=== PATIENT | female | born 1960 | race Caucasian/White ===

== ENCOUNTER 2023-03-29 10:00 | Outpatient (RCR) | payer BC, SELFPAY ==
[2022-11-11 10:40] VITALS: BP 154/90; PULSE 71; RESP 16; TEMP 36.7; O2SAT 98
--- NOTE | 2022-12-09 11:43 | URNOTE ---
Per [employer], Prior authorization is not required for Fluorouracil (J9190), Leucovorin (J0640), Oxaliplatin (J9263) and Aloxi (J2469). Ref #[id number]
[2022-12-16 08:23] LABS: Basophils Percent Auto 0.5 % (0.0-3.0); Eosinophils Percent Auto 1.1 % (0.0-7.0); Hematocrit 38.9 % (33.0-51.0); Hemoglobin* 12.7 gm/dL (12.0-16.0); Lymphocytes Percent Auto 30.7 % (20-44); Mean Corpuscular HGB Conc 33 gm/dL (32-36); Mean Corpuscular Hemoglobin 28 pg (26-34); Mean Corpuscular Volume 86 fL (80-100); Monocytes Percent Auto 6.7 % (0.0-11.0); Platelet Count* 169 K/uL (140-440); White Blood Count* 4.36 K/uL (4.50-11.00)
[2022-12-16 08:25] LABS: Slide Review Reflex No
[2022-12-16 08:31] VITALS: BP 157/95; PULSE 89; RESP 16; TEMP 37.1; O2SAT 95
[2022-12-16 08:38] LABS: Albumin* 4.4 g/dL (3.3-5.0); Chloride* 105 mmol/L (96-114); Potassium* 3.8 mmol/L (3.6-5.1); Sodium* 140 mmol/L (135-149)
[2022-12-16 08:41] LABS: Alanine Aminotransferase* 38 U/L (4-35); Alkaline Phosphatase* 92 U/L (40-150); Anion Gap 9 mEq/L (7-15); Aspartate Amino Transferase* 35 U/L (12-35); Bilirubin Total* 0.4 mg/dL (0.1-1.5); Blood Urea Nitrogen* 10 mg/dL (7-30); Carbon Dioxide* 26 mmol/L (20-32); Creatinine* 0.6 mg/dL (0.5-1.5); Est. Creatinine Clearance* 48.25; Estimated Glomerular Filt Rate 101 ml/min; Glucose* 110 mg/dL (60-115); Total Protein* 7.2 g/dL (6.0-8.3)
[2022-12-16] MEDS: PALONOSETRON 0.25 MG/5 ML inj IV (09:19)
[2022-12-16] MEDS: dexAMETHasone 20 MG in 0.9 % SODIUM CHLORIDE 100 ml 100 ML 408 MG IVPB (09:19)
[2022-12-16] MEDS: SODIUM CHLORIDE 0.9 % (FLUSH) 10 ML SYRINGE IVF (09:22)
[2022-12-16] MEDS: 5 % DEXTROSE 250 ML IV (09:22)
--- NOTE | 2022-12-16 09:54 | ONC.NURNOTE ---
PSDS core =0 patient states she is well supported with friends, family and restorationism she is focused on her wellbeing
--- NOTE | 2022-12-16 09:55 | ONC.NURNOTE ---
new start of FOLFOX at [facility]- this is Hayley's 3rd dose- first 2 doses at [facility] reviewed possible side effects of 5FU and oxaliplatin discussed self care, after hours management, fever management, treatment schedule, hydration, calling with concerns,hair loss, fatigue management, reviewed contents of the treatment binder questions addressed chemotherapy consent and RONEL consents signed
[2022-12-16 10:36] VITALS: BP 138/78
[2022-12-16 13:51] VITALS: BP 138/79; PULSE 88; RESP 18; TEMP 36.6; O2SAT 98
--- NOTE | 2022-12-16 13:52 | ONC.NURNOTE ---
Addendum entered and electronically signed by Trinity Pyle APRN 12/17/22 18:21: Discussed with Dr. Maria Elena Mcmullen today. Checked Magnesium level. Also note her recommendation to have Ms. Kwon get warm i.e. turn up thermostate in house to high 70's, put on sweatshirt and sweat pants and see if that helps with cramping and tremors, i.e. oxaliplatin coldness. Appreciate Kaitlynn Johnson RN to call patient with these recommendations. Addendum entered by Kaitlynn Johnson RN 12/17/22 09:12: Called patient to see how she is feeling this morning. She notes: 1. Continued cramping in hands, arms, and calves. This is making it difficult to type and write for her work. 2. Hands are also shaky. 3. Slight headache rated 2/10. She took 1000mg tylenol last night when it was worse. 4. No ear pain, but notes that her cheeks and ears feel warm. 5. Her upper lip has minimal feeling of numbness that she had yesterday at discharge. 6. Her voice is still hoarse, but sounds better than it did during start of reaction yesterday. Patient was told that an appointment was made for her to see Dr. Grigsby prior to next infusion to come up with plan for her. This will be discussed with Dr. Grigsby virtually with nursing on 12/24/2022 in case patient needs a change in treatment. Patient will call with any concerns that arise prior to this appointment. Addendum entered by Kaitlynn Johnson RN 12/16/22 16:22: Patient discharged at 1615. Occassional hot flashes noted, pain improved with headache and ear pain. Arms and lower leg cramping improving with movement. Voice continues to improve. Patient left to home and nursing will call in the morning. She is aware to go to ER with any issues involving breathing and to call infusion center if questions or concerns arise prior to getting phone call from nursing. Addendum entered by Kaitlynn Johnson RN 12/16/22 14:49: Patient seen by DALIA at 1440. Patient voice is improved, but continues to be slightly hoarse. Continued right arm and left hand cramping. Her calves were cramping when she got up to use the restroom. Headache she notes is still there, but only rated at a 1/10 and ear pain has resolved, but ears just feel warm. Patient will get famotidine and benadryl as ordered by [facility] and nursing to work on getting patient into Dr. Grigsby schedule prior to next infusion. Original Note: Patient stopped [facility]ACTICAL DEBRIEFER to say that she was experiencing a headache, pain in bilateral ears, and hoarse voice that started around 1340. Headache is located in upper neck area, and was improved with stretching and self adjustment. This continued to resolve as nursing was sitting with patient. At 1400 patient noted that ears have improved. Voice continues to be hoarse. No issues with her breathing or swallowing. Nursing came to observe patient and her vitals were all WNL. At about 1350 patient noted cramping in right forearm, this occurred prior to contractions of right arm and hand witch cycle two at home. Warm blanket was applied, and seemed to help with this. At this time, oxaliplatin was stopped. 1402: Ear pain 3/10, headache gone, voice still hoarse with conversation, right arm pain/contraction removed with warm towel, continued pain/cramping in left hand. Applied warm blanket to the area.
[2022-12-16 14:06] VITALS: BP 148/82; PULSE 86; RESP 16; O2SAT 96
[2022-12-16 14:12] VITALS: BP 145/89; PULSE 87; RESP 16; O2SAT 95
[2022-12-16] MEDS: diphenhydrAMINE 25 MG, FAMOTIDINE 20 MG in 0.9 % SODIUM CHLORIDE 100 ml 100 ML 410 MG IVPB (14:49)
[2022-12-16] MEDS: ACETAMINOPHEN 500 MG TABLET 1000 MG PO (15:36)
[2022-12-16 15:40] VITALS: BP 151/82; PULSE 89; RESP 16; TEMP 36.6; O2SAT 93
[2022-12-17 13:31] LABS: Magnesium* 1.8 mg/dL (1.5-2.6)
[2022-12-18 13:15] VITALS: BP 144/84; PULSE 66; RESP 20; TEMP 37; O2SAT 96
[2022-12-18] MEDS: dexAMETHasone 4 MG/ML VIAL 8 MG IV (13:25)
[2022-12-18] MEDS: 0.9 % SODIUM CHLORIDE 1000 ml 1,000 ML IV (13:25)
[2022-12-18] MEDS: ONDANSETRON 2 MG/ML inj 8 MG IV (13:26)
[2022-12-18] MEDS: HEPARIN 500 UNIT/5 ML SYRINGE IVF (15:40)
[2022-12-18] MEDS: SODIUM CHLORIDE 0.9 % (FLUSH) 10 ML SYRINGE IVF (15:40)
[2022-12-18 22:16] LABS: Calcium* 9.2 mg/dL (8.4-10.6)
--- NOTE | 2022-12-29 12:27 | PC.NURSE ---
Pt called to inquire about whether or not she needed labs done since she has decided she is no longer going to do chemotherapy. RN called pt back and advised that she do labs and meet with MD tomorrow as scheduled to discuss next steps. Pt has had innumerable side effects that she can no longer tolerate. She plans to do a cancer fighting diet and stop all chemotherapy. Will relay this message to MD. Again, pt agreed to have her labs drawn and meet with MD to discuss.
[2022-12-30 09:19] LABS: Basophils Percent Auto 0.5 % (0.0-3.0); Hematocrit 38.4 % (33.0-51.0); Hemoglobin* 12.7 gm/dL (12.0-16.0); Lymphocytes Percent Auto 36.8 % (20-44); Mean Corpuscular HGB Conc 33 gm/dL (32-36); Mean Corpuscular Hemoglobin 29 pg (26-34); Mean Corpuscular Volume 86 fL (80-100); Monocytes Percent Auto 8.1 % (0.0-11.0); Neutrophils Percent Auto 53.6 % (42.0-72.0); Platelet Count* 153 K/uL (140-440); RDW Coefficient of Variation % 14.6 % (11.5-15.5); Red Blood Count 4.46 m/uL (4.00-5.20); White Blood Count* 3.94 K/uL (4.50-11.00)
[2022-12-30 09:34] LABS: Slide Review Reflex No
[2022-12-30 09:35] LABS: Albumin* 4.4 g/dL (3.3-5.0); Chloride* 106 mmol/L (96-114); Sodium* 140 mmol/L (135-149)
[2022-12-30 09:36] LABS: Potassium* 4.1 mmol/L (3.6-5.1)
[2022-12-30 09:38] LABS: Alkaline Phosphatase* 102 U/L (40-150); Anion Gap 7 mEq/L (7-15); Aspartate Amino Transferase* 69 U/L (12-35); Bilirubin Total* 0.6 mg/dL (0.1-1.5); Blood Urea Nitrogen* 9 mg/dL (7-30); Carbon Dioxide* 27 mmol/L (20-32); Creatinine* 0.6 mg/dL (0.5-1.5); Est. Creatinine Clearance* 48.25; Estimated Glomerular Filt Rate 101 ml/min; Total Protein* 7.6 g/dL (6.0-8.3)
[2022-12-30 09:39] LABS: Alanine Aminotransferase* 80 U/L (4-35); Calcium* 9.8 mg/dL (8.4-10.6); Glucose* 99 mg/dL (60-115)
[2023-01-14 04:52] LABS: Carcinoembryonic Antigen <0.6 ng/mL (<=3.8)
[2023-02-16 11:55] LABS: Basophils Absolute Auto 0.02 K/uL (0.00-0.30); Basophils Percent Auto 0.4 % (0.0-3.0); Eosinophils Absolute Auto 0.05 K/uL (0.00-0.50); Hematocrit 39.6 % (33.0-51.0); Lymphocytes Absolute Auto 1.83 K/uL (0.90-2.90); Lymphocytes Percent Auto 38.2 % (20-44); Mean Corpuscular HGB Conc 33 gm/dL (32-36); Mean Corpuscular Hemoglobin 29 pg (26-34); Mean Corpuscular Volume 89 fL (80-100); Monocytes Percent Auto 4.6 % (0.0-11.0); Neutrophils Absolute Auto 2.67 K/uL (1.7-7.0); Neutrophils Percent Auto 55.8 % (42.0-72.0); Platelet Count* 187 K/uL (140-440); RDW Coefficient of Variation % 13.4 % (11.5-15.5); Red Blood Count 4.46 m/uL (4.00-5.20); White Blood Count* 4.79 K/uL (4.50-11.00)
[2023-02-16 12:04] LABS: Slide Review Reflex No
[2023-02-16 12:09] LABS: Albumin* 4.6 g/dL (3.3-5.0); Chloride* 107 mmol/L (96-114); Potassium* 3.8 mmol/L (3.6-5.1); Sodium* 140 mmol/L (135-149)
[2023-02-16 12:11] LABS: Creatinine* 0.5 mg/dL (0.5-1.5); Est. Creatinine Clearance* 48.25; Estimated Glomerular Filt Rate 106 ml/min
[2023-02-16 12:12] LABS: Alkaline Phosphatase* 89 U/L (40-150); Anion Gap 6 mEq/L (7-15); Aspartate Amino Transferase* 28 U/L (12-35); Bilirubin Total* 0.6 mg/dL (0.1-1.5); Blood Urea Nitrogen* 11 mg/dL (7-30); Carbon Dioxide* 27 mmol/L (20-32); Glucose* 92 mg/dL (60-115); Total Protein* 7.6 g/dL (6.0-8.3)
[2023-02-16 12:13] LABS: Alanine Aminotransferase* 19 U/L (4-35); Calcium* 9.2 mg/dL (8.4-10.6)
[2023-02-16] MEDS: HEPARIN 500 UNIT/5 ML SYRINGE IVF (15:08)
[2023-02-16] MEDS: SODIUM CHLORIDE 0.9 % (FLUSH) 10 ML SYRINGE IVF (15:08)
[2023-02-18 09:36] LABS: Carcinoembryonic Antigen 2.1 ng/mL (<=3.8)
[2023-02-24 08:00] VITALS: BP 149/88; PULSE 73; RESP 16; TEMP 37.1; O2SAT 96
[2023-02-24] MEDS: dexAMETHasone 20 MG in 0.9 % SODIUM CHLORIDE 100 ml 100 ML 408 MG IVPB (08:59)
[2023-02-24] MEDS: PALONOSETRON 0.25 MG/5 ML inj IV (08:59)
[2023-02-26 09:00] VITALS: BP 151/87; BP 158/81; PULSE 61; PULSE 63; RESP 16; TEMP 36.6; O2SAT 98
--- NOTE | 2023-02-26 09:36 | ONC.NURNOTE ---
Addendum entered by Concha Bender RN 02/26/23 09:46: stated day of treatment had a slight headache and felt lightheaded. resolved. slight RUQ cramping like gas. tolerable Original Note: orthostatics wnl. states ate good breakfast and drinking 64 oz water a day. denies rapid HR, dizziness or sob. states voiding in good amt light yellow. no fluids given. reviewed s/s dehydration and encouraged her to contact us if feeling like she needs IVF.
[2023-02-26] MEDS: SODIUM CHLORIDE 0.9 % (FLUSH) 10 ML SYRINGE IVF (09:38)
[2023-02-26] MEDS: HEPARIN 500 UNIT/5 ML SYRINGE IVF (09:38)
[2023-03-10 08:00] VITALS: BP 129/87; PULSE 117; RESP 16; TEMP 36.1; O2SAT 97
[2023-03-10 08:15] VITALS: PULSE 90
[2023-03-10 08:28] LABS: Basophils Percent Auto 0.5 % (0.0-3.0); Hematocrit 39.5 % (33.0-51.0); Lymphocytes Percent Auto 31.2 % (20-44); Mean Corpuscular HGB Conc 33 gm/dL (32-36); Mean Corpuscular Hemoglobin 29 pg (26-34); Mean Corpuscular Volume 89 fL (80-100); Monocytes Percent Auto 5.8 % (0.0-11.0); Neutrophils Percent Auto 61.5 % (42.0-72.0); Platelet Count* 193 K/uL (140-440); RDW Coefficient of Variation % 13.1 % (11.5-15.5); Red Blood Count 4.45 m/uL (4.00-5.20); White Blood Count* 4.14 K/uL (4.50-11.00)
[2023-03-10 08:42] LABS: Slide Review Reflex No
[2023-03-10 08:44] LABS: Albumin* 4.5 g/dL (3.3-5.0)
[2023-03-10 08:45] LABS: Chloride* 107 mmol/L (96-114); Potassium* 3.5 mmol/L (3.6-5.1); Sodium* 134 mmol/L (135-149)
[2023-03-10 08:47] LABS: Anion Gap 2 mEq/L (7-15); Bilirubin Total* 0.4 mg/dL (0.1-1.5); Carbon Dioxide* 25 mmol/L (20-32); Creatinine* 0.6 mg/dL (0.5-1.5); Est. Creatinine Clearance* 48.25; Estimated Glomerular Filt Rate 101 ml/min
[2023-03-10 08:48] LABS: Alanine Aminotransferase* 26 U/L (4-35); Alkaline Phosphatase* 99 U/L (40-150); Aspartate Amino Transferase* 27 U/L (12-35); Blood Urea Nitrogen* 11 mg/dL (7-30); Calcium* 9.4 mg/dL (8.4-10.6); Glucose* 116 mg/dL (60-115); Total Protein* 7.4 g/dL (6.0-8.3)
[2023-03-10] MEDS: dexAMETHasone 20 MG in 0.9 % SODIUM CHLORIDE 100 ml 100 ML 408 MG IVPB (09:33)
[2023-03-10] MEDS: PALONOSETRON 0.25 MG/5 ML inj IV (09:33)
[2023-03-10] MEDS: 0.9 % SODIUM CHLORIDE 250 ml IV (09:34)
[2023-03-10] MEDS: 5 % DEXTROSE 250 ML IV (09:34)
[2023-03-10] MEDS: HEPARIN 500 UNIT/5 ML SYRINGE IVF (09:34)
[2023-03-10] MEDS: SODIUM CHLORIDE 0.9 % (FLUSH) 10 ML SYRINGE IVF (09:34)
[2023-03-10] MEDS: OXALIPLATIN 5 MG/ML INJ 115 MG, TUBING PRIMARY 1 EACH in 5 % DEXTROSE 250 ML 250 ML 136.5 MG IV (09:59)
--- NOTE | 2023-03-10 10:55 | ONC.NURNOTE ---
Addendum entered by Concha Bender RN 03/10/23 11:43: 1120 vs 98-138/84-76-14. sats 96 RA. up to void and steady. Addendum entered by Concha Bender RN 03/10/23 11:41: Restarted Oxiplatin at 1112. monitroring closely. vs freq. tolerating well,. Original Note: 1020. 15 minutes into the transfusion. Infusion stopped and disconnected. Pt states she feels lightheaded. VS147/93-72-15. sats 97 ra. Notified Kaitlynn CONTI and DR. Moreno and with pt. 1026. states lt throat feels swollen into lt ear. visual of airway is open. vs 152/92-70. sats 97. NS 250 cc bolus. 1035 states light headedness is cleared. vs 147/91-75-14. 98 percent RA. LS clear. 1040 up to void. steady states feels better. 1052 157/91-77-14. [address] Grigsby here restart Oxaliplatin at 62 cc hr over 4 hrs. monitoring pt closely
--- NOTE | 2023-03-10 12:35 | ONC.NURNOTE ---
sodium 134. K+ 3.5 talked about increased potassium in her diet.,
[2023-03-12 12:15] VITALS: BP 155/83; PULSE 59; RESP 16; TEMP 36.8; O2SAT 96
[2023-03-12] MEDS: 0.9 % SODIUM CHLORIDE 1000 ml 1,000 ML IV (12:20)
[2023-03-23 08:02] VITALS: BP 156/90; PULSE 81; RESP 16; TEMP 36.9; O2SAT 94
[2023-03-23 08:46] LABS: Basophils Percent Auto 0.5 % (0.0-3.0); Eosinophils Percent Auto 1.9 % (0.0-7.0); Hemoglobin* 11.8 gm/dL (12.0-16.0); Lymphocytes Percent Auto 38.9 % (20-44); Mean Corpuscular HGB Conc 33 gm/dL (32-36); Mean Corpuscular Hemoglobin 29 pg (26-34); Mean Corpuscular Volume 90 fL (80-100); Monocytes Percent Auto 6.9 % (0.0-11.0); Neutrophils Percent Auto 51.8 % (42.0-72.0); Platelet Count* 160 K/uL (140-440); Red Blood Count 4.01 m/uL (4.00-5.20); White Blood Count* 3.78 K/uL (4.50-11.00)
[2023-03-23 09:07] LABS: Slide Review Reflex No
[2023-03-23 09:08] LABS: Albumin* 4.4 g/dL (3.3-5.0); Chloride* 106 mmol/L (96-114); Potassium* 3.8 mmol/L (3.6-5.1); Sodium* 141 mmol/L (135-149)
[2023-03-23 09:11] LABS: Alanine Aminotransferase* 21 U/L (4-35); Alkaline Phosphatase* 85 U/L (40-150); Anion Gap 10 mEq/L (7-15); Aspartate Amino Transferase* 24 U/L (12-35); Bilirubin Total* 0.2 mg/dL (0.1-1.5); Blood Urea Nitrogen* 9 mg/dL (7-30); Carbon Dioxide* 25 mmol/L (20-32); Creatinine* 0.6 mg/dL (0.5-1.5); Est. Creatinine Clearance* 48.25; Estimated Glomerular Filt Rate 101 ml/min; Total Protein* 6.8 g/dL (6.0-8.3)
[2023-03-23 09:12] LABS: Calcium* 8.9 mg/dL (8.4-10.6); Glucose* 119 mg/dL (60-115)
[2023-03-23] MEDS: PALONOSETRON 0.25 MG/5 ML inj IV (10:09)
[2023-03-23] MEDS: dexAMETHasone 20 MG in 0.9 % SODIUM CHLORIDE 100 ml 100 ML 408 MG IVPB (10:09)
[2023-03-23] MEDS: SODIUM CHLORIDE 0.9 % (FLUSH) 10 ML SYRINGE IVF (15:02)
[2023-03-23] MEDS: HEPARIN 500 UNIT/5 ML SYRINGE IVF (15:02)
--- NOTE | 2023-03-23 15:59 | ONC.NURNOTE ---
Pt tolerated Oxaliplatin over 4 hours today.
[2023-03-24 08:24] VITALS: BP 145/83; PULSE 86; RESP 16; TEMP 37.2; O2SAT 95
[2023-03-24] MEDS: SODIUM CHLORIDE 0.9 % (FLUSH) 10 ML SYRINGE IVF ×3 (09:10→11:36)
[2023-03-24] MEDS: PALONOSETRON 0.25 MG/5 ML inj IV (09:10)
[2023-03-24] MEDS: dexAMETHasone 10 MG in 0.9 % SODIUM CHLORIDE 100 ml 100 ML 408 MG IVPB (09:10)
[2023-03-24] MEDS: 0.9 % SODIUM CHLORIDE 250 ml IV (11:24)
[2023-03-24] MEDS: 5 % DEXTROSE 250 ML IV (11:58)
--- NOTE | 2023-03-24 12:08 | ONC.NURNOTE ---
slight tension headache. better today. calls it a neging headache. She states wonderes if from DEX.cold sores in mouth almost gone. is using magic mouthwash. states acyclovir just gave her diarrhea. She will call wednesday if needing IVF. discussed s/s for dehydration.
[2023-03-24 13:57] VITALS: BP 140/75; PULSE 75; RESP 18; TEMP 36.6; O2SAT 96
[2023-03-24 14:30] VITALS: BP 153/84; PULSE 78; RESP 16; TEMP 35.5; O2SAT 96
--- NOTE | 2023-03-24 16:20 | ONC.NURNOTE ---
Frequent checks during Oxaliplantin infusion 55mg over 4 hrs. 1357 At end of transfusion pt states feels light headed throat dry and sore. vs wnl. NS hung at 100cc hr. Dr Grigsby notified. pt felling much better with at discharge. vs wnl. up and steady.
[2023-03-26 12:42] VITALS: BP 143/83; PULSE 75; RESP 16; TEMP 36.9; O2SAT 95
[2023-03-26] MEDS: 0.9 % SODIUM CHLORIDE 1000 ml 1,000 ML IV (13:15)
[2023-03-26] MEDS: SODIUM CHLORIDE 0.9 % (FLUSH) 10 ML SYRINGE IVF ×2 (13:16→14:15)
[2023-03-26] MEDS: HEPARIN 500 UNIT/5 ML SYRINGE IVF (14:15)
[2023-03-29] MEDS: dexAMETHasone 4 MG/ML VIAL 8 MG IV (10:53)
[2023-03-29] MEDS: 0.9 % SODIUM CHLORIDE 1000 ml 1,000 ML IV (10:53)
[2023-03-29] MEDS: SODIUM CHLORIDE 0.9 % (FLUSH) 10 ML SYRINGE IVF ×2 (10:53→12:03)
[2023-03-29] MEDS: FAMOTIDINE 10 MG/ML inj 20 MG IVP (10:53)
[2023-03-29] MEDS: ONDANSETRON 2 MG/ML inj 8 MG IV (10:54)
[2023-03-29] MEDS: HEPARIN 500 UNIT/5 ML SYRINGE IVF (12:03)
--- NOTE | 2023-03-29 12:07 | ONC.NURNOTE ---
Patient leaving office and received phone call from [facility]. They are moving her surgery consult up to Wednesday04/05/2023. She asked about cancelling her chemotherapy appointment on Wednesday, we will leave appointment as is until we hear from patient following this appointment.
--- NOTE | 2023-04-05 12:30 | ONC.NURNOTE ---
received a call from Hayley, she asked to have all of her appointments cancelled per her [place] team in [place]. She will be meeting with them again in April, appointments were cancelled.
--- NOTE | 2023-04-27 15:15 | ONC.NURNOTE ---
Pt called to cancel appt with Dr. Grigsby on 05/04/23, pt states she has an appt with [place] on 05/07/23. Pt will update [facility] staff after that appt with plan of care.
== END 2023-05-10 23:59 | disposition home or self-care (01) ==
LOC: CCIC 10:00
PROVIDERS: Clinical Nurse Specialist; PCP Family Medicine; Referring Provider Family Medicine; Visit Provider Internal Medicine Hematology & Oncology
DX: C18.0 Malignant neoplasm of cecum (principal); R23.2 Flushing; K13.79 Other lesions of oral mucosa; M79.10 Myalgia, unspecified site; H04.123 Dry eye syndrome of bilateral lacrimal glands
CPT/HCPCS: 36415; 36591; 71260; 74177; 80053; 82378; 83735; 85025; 96360; 96365; 96366; 96368; 96376; 96413; 96415; 96416; 99202; 99203; 99205; 99211; 99212; 99213; 99214; 99215; A9270; J0640; J1100; J1200; J1642; J2405; J2469; J7030; J7050; J9190; J9263; Q9967; S0028

== ENCOUNTER 2023-08-10 13:23 | Outpatient (RCR) | payer BC, SELFPAY | END 2024-02-06 23:59 | disposition home or self-care (01) | LOC: CCIC 13:23 | PROVIDERS: PCP Family Medicine; Referring Provider Family Medicine; Visit Provider Internal Medicine Hematology & Oncology | DX: C18.0 Malignant neoplasm of cecum (principal) | CPT/HCPCS: 99211 ==

== ENCOUNTER 2023-09-04 09:12 | Inpatient (IN) | payer BC, SELFPAY ==
[2023-09-04] VITALS (22 sets, daily range): BP systolic 102–158; BP diastolic 53–96; PULSE 95–114; RESP 18–22; TEMP 37.3–38.3; O2SAT 90–98; BMI 28.3; BMI 29.7
--- NOTE | 2023-09-04 09:34 | CT_ITS ---
Patient: RUBEN MERIDA Facility:?[facility] Patient ID:?[id number] Site Patient ID:?[id number] Site :?[id number] Study:?CT-Chest/Abd/Pelvis w/79mL Isovue 370-09/04/2023 10:52:08 AM Ordering Physician:BILLY Final Report: INDICATION: Fever. History of a cecal cancer. TECHNIQUE: Multiple axial images were obtained from the apices to the symphysis pubis after administration of 79 mL of Isovue-370 intravenously. Sagittal and coronal re- formatted images were obtained. COMPARISON: 01/06/2023. FINDINGS: Chest. There is a calcified granuloma in the right middle lobe. There is a stable 0.2 cm pulmonary nodule in the right middle lobe on image #16 of series 6. There is a stable area scarring in the right middle lobe. There is no new suspicious pulmonary nodule. There is no pleural effusion. There is a right-sided Port-A-Cath. There is no axillary, mediastinal or hilar adenopathy. Abdomen and pelvis: There are stable tiny low-dense areas in the left lobe of the liver which are to small to characterized on this study but are likely cysts. The spleen, pancreas and adrenals are unremarkable. There is no mass or hydronephrosis in the kidneys. There is trace amount of fluid adjacent to the gallbladder. There is no mass or hydronephrosis in the kidneys. There is no evidence of bowel obstruction. There are postoperative changes consistent with a right francheska colectomy. There is a trace amount of fluid is to a with stranding of the fat adjacent to a suture line in the right lower quadrant. There is a small amount of free fluid in the pelvis. There is no free intraperitoneal air. There is an anterior abdominal wall incision wound. There is a new 1.9 x 1.4 cm soft tissue nodule in the incision site in the anterior LL musculature in the midline. The abdominal aorta is normal in caliber. There are atherosclerotic calcifications. No adenopathy. There are varicose veins in the left anterior abdominal wall subcutaneous tissue. There are phleboliths in the pelvis. There are degenerative changes in the spine. IMPRESSION: 1. Postoperative changes consistent with a right hemicolectomy. 2. Trace amount of fluid and mild stranding of the fat adjacent to the suture line in the colon in the right lower quadrant. Small amount of free fluid in the pelvis with a trace amount of fluid adjacent to the gallbladder. 3. No definite abscess seen. 4. New 1.9 x 1.4 cm soft tissue nodule in the incision in the anterior wall musculature. 5. Stable tiny low-dense areas in the liver which are too small to fully characterize but are likely tiny cysts. 6. Stable 0.2 cm pulmonary nodule right middle lobe. Calcified granuloma right middle lobe. Please note that all CT scans at this facility use dose modulation, iterative reconstruction, and/or weight-based dosing when appropriate to reduce radiation dose to as low as reasonably achievable. Dictated by Feliciano De La Cruz MD @ 09/04/2023 11:48:10 AM Signed by:?Feliciano De La Cruz MD @09/04/2023 11:48:10 AM (Electronic Signature)
--- NOTE | 2023-09-04 09:37 | ED.GENADULT ---
HPI - General Adult General Chief complaint: Fever Stated complaint: 106F, cancer pt with port. 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 She has had her care at [facility] in here with Dr. Yolie forde she in med oncology. The patient reports that this morning she woke up with abdominal discomfort that is gotten worse through the morning. She has had shaking chills. She does have a port in place but has not noticed any redness or erythema around the port. She is actually scheduled to get that removed. She reports she had a negative CT scan of her abdomen in June. She has had no blood in her stool. She denies cough, denies chest pain, denies respiratory concerns. Denies urinary symptoms. She has now completed chemotherapy but did have a recurrent tumor she had removed it she reported was the same type of tumor in her colon. Patient's fever at home was 100.6 Related Data Home Medications Medication Instructions Recorded Confirmed calcium carbonate (Calcium 500) 500 mg PO Q4-6H PRN 11/09/22 03/29/23 loperamide 2 mg capsule 2 mg PO Q6H PRN 11/09/22 03/29/23 ondansetron HCl 8 mg tablet 8 mg PO Q8H PRN 11/09/22 03/29/23 peg 400-propylene glycol (PF) 0.4 1 drp ophthalmic (eye) TID 11/09/22 03/29/23 %-0.3 % eye drops in a dropperette (Systane (PF)) prochlorperazine maleate 10 mg 10 mg PO Q6H PRN 11/09/22 03/29/23 tablet simethicone 80 mg chewable tablet 80 mg PO BID-TID PRN 11/09/22 03/29/23 (Gas Relief 80 (simethicone)) acetaminophen 500 mg tablet 1,000 mg PO Q6H PRN 12/08/22 09/04/23 (Tylenol Extra Strength) Magic Mouthwash 5 ml PO QID PRN #120 mL 03/12/23 03/29/23 (Lidocaine/Benadryl/Maalox) 120 mL suspension acyclovir 400 mg tablet 400 mg PO BID PRN 03/17/23 09/04/23 cholecalciferol (vitamin D3) 25 25 mcg PO DAILY 09/04/23 09/04/23 mcg (1,000 unit) capsule (Vitamin D3) Previous Rx's Medication Instructions Recorded magnesium oxide 500 mg capsule 500 mg PO BID #60 caps 03/17/23 penciclovir 1 % topical cream 1 applic topical Q2H 4 days #5 03/23/23 grams Allergies Allergy/AdvReac Type Severity Reaction Status Date / Time doxycycline Allergy Intermediate Rash Verified 09/04/23 11:08 codeine AdvReac Intermediate Nausea Verified 09/04/23 11:08 lisinopril AdvReac Unknown Cough Verified 09/04/23 11:08 Review of Systems Status of ROS: Reports: 6 or more systems reviewed and unremarkable except as noted in History and below [facility] Medical History (Updated 09/04/23 @ 15:44 by Kylah Cesar MD) Herpes labialis ?B00.1 - Herpesviral vesicular dermatitis (ICD-10) Colon cancer ?C18.9 - Malignant neoplasm of colon, unspecified (ICD-10) Hypertension ?I10 - Essential (primary) hypertension (ICD-10) Dyslipidemia ?E78.5 - Hyperlipidemia, unspecified (ICD-10) Class 1 obesity ?E66.9 - Obesity, unspecified (ICD-10) Chronic gastroesophageal reflux disease ?K21.9 - Gastro-esophageal reflux disease without esophagitis (ICD-10) Allergic rhinitis ?J30.9 - Allergic rhinitis, unspecified (ICD-10) Recurrent sinusitis ?J32.9 - Chronic sinusitis, unspecified (ICD-10) Polyp of colon (10/14/15) ?K63.5 - Polyp of colon (ICD-10) History of vitamin D deficiency ?Z86.39 - Personal history of other endocrine, nutritional and metabolic disease (ICD-10) History of coronary angiogram (09/28/17) ?Z98.890 - Other specified postprocedural states (ICD-10) History of cardiovascular stress test (09/14/17) ?Z92.89 - Personal history of other medical treatment (ICD-10) Surgical History (Updated 09/04/23 @ 15:45 by Kylah Cesar MD) H/O laparoscopy ?Z98.890 - Other specified postprocedural states (ICD-10) H/O partial resection of colon ?Z90.49 - Acquired absence of other specified parts of digestive tract (ICD-10) History of total hysterectomy with removal of both tubes and ovaries (2010) ?Z90.710 - Acquired absence of both cervix and uterus (ICD-10) ?Z90.722 - Acquired absence of ovaries, bilateral (ICD-10) ?Z90.79 - Acquired absence of other genital organ(s) (ICD-10) History of colonoscopy with polypectomy (10/11/15) ?Z98.890 - Other specified postprocedural states (ICD-10) ?Z86.010 - Personal history of colonic polyps (ICD-10) History of 2 sections (1988) ?Z98.891 - History of uterine scar from previous surgery (ICD-10) Family History Maternal Grandmother Stroke Diabetes Family/Other Prostate cancer Gastric cancer Father Heart disease Social History (Updated 09/04/23 @ 15:46 by Kylah Cesar MD) Narrative: [employer]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 Exercises 3-4 times per week-gym and walks, nonsmoker, no EtOH. What is your current living situation?: I presently have a place to live Problems where you live: no known problems Problems where you live details: N/A In the past 12 months, utilities in danger of being shut off: no In past 12 months, lack of transportation kept you from medical appts, meetings, work, or getting things needed for daily living: no In the past 12 mos, have been you worried that your food would run out before you had money to buy more?: never true In the past 12 mos, the food you bought just didn't last and you didn't have money to buy more?: never true Smoking Status: Never smoker Do you use any of these nicotine containing products: None Second hand tobacco smoke exposure: No How often do you have a drink containing alcohol: never How often do you have six or more drinks on one occasion: Never AUDIT-C Alcohol total score: 0 Non-prescribed substance use: denies use Caffeine: No How often does anyone, including family, friends and others, physically hurt you: never How often does anyone, including family, friends and others, insult or talk down to you: never How often does anyone, including family, friends and others, threaten you with harm: never How often does anyone, including family, friends and others, scream or curse at you: never service: No Exam Narrative: Exam Narrative: Objective: Temperature is 100? Blood pressure 158/96, pulse 114 and regular O2 sat is excellent at 90% Alert orient x3 Noncyanotic HEENT shows no scleral icterus mouth clear neck is supple Patient is in moderate distress to crampy abdominal pain across her mid abdomen. Chest clear Heart rhythm regular heart murmur Abdomen is soft mild periumbilical pain to the palpation, no guarding, no obvious peritonitis. But patient is to tender to touch in her abdomen. Negative rebound No pain in the right lower quadrant Extremities are no edema Neurologic nonfocal good peripheral perfusion noted Const: Vital Signs, click to edit/add: Vital Signs - 24 hr 09/04/23 12:30 09/04/23 12:31 09/04/23 13:10 Temperature 99.4 F Pulse Rate 102 H 103 H Pulse Rate [Apical ] 95 Respiratory Rate 18 Blood Pressure 102/53 L Blood Pressure [Ri ght Arm] 104/67 Pulse Oximetry 92 93 93 Oxygen Delivery Me thod Room Air 09/04/23 14:19 Temperature Pulse Rate Pulse Rate [Apical ] Respiratory Rate Blood Pressure Blood Pressure [Ri ght Arm] Pulse Oximetry 93 Oxygen Delivery Me thod Course Vital Signs Vital signs: Initial Vital Signs Temperature 100 F H 09/04/23 09:19 Temperature Source Temporal Artery Scan 09/04/23 09:19 Pulse Rate 114 H 09/04/23 09:19 Respiratory Rate 22 09/04/23 09:19 Blood Pressure 158/96 H 09/04/23 09:19 Blood Pressure Mean 116 H 09/04/23 09:19 Blood Pressure Position Semi-Fowlers 09/04/23 09:19 Pulse Oximetry 98 09/04/23 09:19 Oxygen Delivery Method Room Air 09/04/23 09:19 Vital Signs Temperature 100 F H 09/04/23 09:19 Pulse Rate 114 H 09/04/23 09:19 Respiratory Rate 22 09/04/23 09:19 Blood Pressure 158/96 H 09/04/23 09:19 Pulse Oximetry 98 09/04/23 09:19 Oxygen Delivery Method Room Air 09/04/23 09:19 Temperature 99.2 F 09/04/23 15:00 Pulse Rate 95 09/04/23 15:00 Respiratory Rate 18 09/04/23 15:00 Blood Pressure 127/71 09/04/23 15:00 Pulse Oximetry 94 09/04/23 15:00 Oxygen Delivery Method Room Air 09/04/23 15:00 Medications Administered Medications: Discontinued Medications Generic Name Dose Route Start Last Admin Trade Name Freq PRN Reason Stop Dose Admin Sodium Chloride 1,000 mls @ 6,000 mls/hr 09/04/23 09:45 09/04/23 10:30 0.9 % Sodium Chloride 1000 Ml IV 09/04/23 09:54 Infused .Q10M VIDA Infusion Sodium Chloride 1,000 mls @ 6,000 mls/hr 09/04/23 09:45 09/04/23 12:30 0.9 % Sodium Chloride 1000 Ml IV 09/04/23 09:54 Infused .Q10M VIDA Infusion Vancomycin HCl 1,500 mg/ 515 mls @ 257.5 mls/hr 09/04/23 09:42 09/04/23 11:17 Sodium Chloride IVPB 09/04/23 09:43 257.5 mls/hr ONCE ONE Administration Protocol Piperacillin Sod/Tazobactam 100 mls @ 200 mls/hr 09/04/23 09:42 09/04/23 11:10 Sod 4.5 gm/ Sodium Chloride IVPB 09/04/23 09:43 Infused ONCE ONE Infusion Lactated Ringer's 1,000 mls @ 1,000 mls/hr 09/04/23 14:18 09/04/23 14:46 Lactated Ringers 1000 Ml IV 09/04/23 15:17 1,000 mls/hr .Q1H ONE Administration Lactated Ringer's 1,000 mls @ 125 mls/hr 09/04/23 14:20 09/04/23 16:00 Lactated Ringers 1000 Ml IV 125 mls/hr .Q8H VIDA Administration Piperacillin Sod/Tazobactam 100 mls @ 200 mls/hr 09/04/23 16:00 09/04/23 15:48 Sod 3.375 gm/ Sodium Chloride IVPB 200 mls/hr Q6H VIDA Administration Lorazepam 0.5 mg 09/04/23 09:34 09/04/23 09:55 Lorazepam 2 Mg/Ml Inj IVP 09/04/23 09:35 0.5 mg ONCE ONE Administration Morphine Sulfate 4 mg 09/04/23 09:34 09/04/23 09:52 Morphine 4 Mg/Ml Inj IVP 09/04/23 09:35 4 mg ONCE ONE Administration Morphine Sulfate 4 mg 09/04/23 12:43 09/04/23 12:45 Morphine 4 Mg/Ml Inj IVP 09/04/23 12:44 4 mg ONCE ONE Administration Ondansetron HCl 4 mg 09/04/23 14:18 09/04/23 15:57 Ondansetron 2 Mg/Ml Inj IVP 4 mg Q4H PRN Administration Nausea Medical Decision Making MDM Narrative Medical decision making narrative: [age] year white female with history of what is described in her chart as invasive cecal cancer status post recent resection earlier this year by her report at [facility], who is now off chemotherapy. Does have a port in place in the right upper chest. She has noticed no redness or erythema around the port. There does appear to be palpable abdominal pain. At this point I think rule out obstruction, such as a small bowel obstruction, diverticulitis, ascites, patient will get CT scan of the abdomen and chest will get IV fluid, antibiotics in the form of vanco and Zosyn, will also give a couple L IV fluid. Disposition pending findings above. Whether hospitalization here or transfer back to [facility]. Addendum 12:[address] scan of the chest and abdomen pelvis looks largely unremarkable other than she does have a little bit of fluid around her gallbladder, and she does have 01.9 x 1.4 soft tissue nodule incision in the anterior wall musculature. Patient has had a right hemicolectomy. Fever there is no abscess is seen. Patient's lab studies look pretty were unremarkable with borderline lactate and white count looks within normal limits, troponin is negative, EKG by my read shows normal sinus rhythm normal EKG. Urinalysis looks largely unremarkable. Blood cultures were obtained. I think at this point discussed with Dr. Cesar and we agreed to do a right upper quadrant ultrasound for completeness, and will also get a blood culture from her port. The patient will be admitted to the hospital on observation, IV vanco and Zosyn has been given. Dr. Cesar accepts to the hospital team. Lab Data Labs: Lab Results 09/04/23 09/04/23 09/04/23 Range/Units 09:30 09:40 10:09 WBC 10.35 (4.50-11.00) K/uL RBC 4.61 (4.00-5.20) m/uL Hgb 13.5 (12.0-16.0) gm/dL Hct 41.0 (33.0-51.0) % MCV 89 (80-100) fL MCH 29 (26-34) pg MCHC 33 (32-36) gm/dL RDW Coeff of Dorian 12.8 (11.5-15.5) % Plt Count 170 (140-440) K/uL Neut % (Auto) 86.5 H (42.0-72.0) % Lymph % (Auto) 10.0 L (20-44) % [place] % (Auto) 2.7 (0.0-11.0) % Eos % (Auto) 0.5 (0.0-7.0) % Baso % (Auto) 0.1 (0.0-3.0) % Neut # (Auto) 9.00 H (1.7-7.0) K/uL Lymph # (Auto) 1.00 (0.90-2.90) K/uL [place] # (Auto) 0.30 (0.00-0.90) K/UL Eos # (Auto) 0.05 (0.00-0.50) K/uL Baso # (Auto) 0.01 (0.00-0.30) K/uL Abs Immat Gran (auto) 0.02 (0.00-0.30) K/uL Imm/Tot Granulo (auto) 0.2 % INR 0.94 (0.91-1.10) Sodium 139 (135-149) mmol/L Potassium 3.8 (3.6-5.1) mmol/L Chloride 105 (96-114) mmol/L Carbon Dioxide 27 (20-32) mmol/L Anion Gap 7 (7-15) mEq/L BUN 14 (7-30) mg/dL Creatinine 0.6 (0.5-1.5) mg/dL Estimated Creat Clear 47.63 Estimated GFR 101 ml/min Glucose 103 (60-115) mg/dL Lactate 2.1 H (0.5-1.9) mmol/L Calcium 9.4 (8.4-10.6) mg/dL Total Bilirubin 0.6 (0.1-1.5) mg/dL Direct Bilirubin 0.0 (0.0-0.5) mg/dL AST 21 (12-35) U/L ALT 20 (4-35) U/L Alkaline Phosphatase 86 (40-150) U/L Troponin I < 0.01 L (0.01-0.04) ng/mL C-Reactive Protein 0.8 (0.5-1.0) mg/dL NT-Pro-B Natriuret Pep 89 pg/mL Total Protein 7.8 (6.0-8.3) g/dL Albumin 4.8 (3.3-5.0) g/dL Amylase 65 (18-89) U/L Urine Color Yellow (Yellow) Urine Appearance Clear (Clear) Urine pH 7.0 (5.0-8.5) Ur Specific [place] 1.020 (1.000-1.030) Urine Protein Negative (Negative) Urine Glucose (UA) Negative (Negative) Urine Ketones Negative (Negative) Urine Blood Trace-intact A (Negative) Urine Nitrite Negative (Negative) Urine Bilirubin Negative (Negative) Urine Urobilinogen 0.2 (0.2-1.0) Ur Leukocyte Esterase Negative (Negative) Urine RBC 2-5 A (0-2) Urine WBC 2-5 (0-5) Ur Squamous Epith Cells Few (None-Few) Urine Bacteria Few A (None) SARS-CoV-2 (PCR) Negative SARS-CoV-2 (Negative) Influenza Type A (PCR) Negative PCR FLU A (Negative) Influenza Type B (PCR) Negative PCR FLU B (Negative) RSV (PCR) Negative PCR RSV (Negative) Discharge Plan Discharge Clinical Impression: Fever, Shaking chills, Abdominal pain Patient Disposition: Admitted As Observation Condition: Critical
[2023-09-04 09:44] LABS: Lactate* 2.1 mmol/L (0.5-1.9)
[2023-09-04 09:46] LABS: Basophils Absolute Auto 0.01 K/uL (0.00-0.30); Basophils Percent Auto 0.1 % (0.0-3.0); Eosinophils Absolute Auto 0.05 K/uL (0.00-0.50); Eosinophils Percent Auto 0.5 % (0.0-7.0); Hemoglobin* 13.5 gm/dL (12.0-16.0); Immature Granulocytes Abs Auto 0.02 K/uL (0.00-0.30); Immature Granulocytes Pct Auto 0.2 %; Mean Corpuscular HGB Conc 33 gm/dL (32-36); Mean Corpuscular Hemoglobin 29 pg (26-34); Mean Corpuscular Volume 89 fL (80-100); Monocytes Percent Auto 2.7 % (0.0-11.0); Neutrophils Percent Auto 86.5 % (42.0-72.0); Platelet Count* 170 K/uL (140-440); RDW Coefficient of Variation % 12.8 % (11.5-15.5); Red Blood Count 4.61 m/uL (4.00-5.20); White Blood Count* 10.35 K/uL (4.50-11.00)
[2023-09-04] MEDS: 0.9 % SODIUM CHLORIDE 1000 ml 1,000 ML 6000 ML IV ×2 (09:51→10:30)
[2023-09-04] MEDS: MORPHINE 4 MG/ML INJ IVP ×2 (09:52→12:45)
[2023-09-04] MEDS: LORazepam 2 MG/ML inj 0.5 MG IVP (09:55)
[2023-09-04 09:56] LABS: Slide Review Reflex No
[2023-09-04 10:04] LABS: Chloride* 105 mmol/L (96-114)
[2023-09-04 10:05] LABS: Albumin* 4.8 g/dL (3.3-5.0); Sodium* 139 mmol/L (135-149)
[2023-09-04 10:06] LABS: Potassium* 3.8 mmol/L (3.6-5.1)
[2023-09-04 10:07] LABS: INR 0.94 (0.91-1.10); Prothrombin Time 13.1 Seconds
[2023-09-04 10:08] LABS: Amylase* 65 U/L (18-89); Anion Gap 7 mEq/L (7-15); Aspartate Amino Transferase* 21 U/L (12-35); Bilirubin Total* 0.6 mg/dL (0.1-1.5); Carbon Dioxide* 27 mmol/L (20-32); Creatinine* 0.6 mg/dL (0.5-1.5); Est. Creatinine Clearance* 47.63; Estimated Glomerular Filt Rate 101 ml/min; Total Protein* 7.8 g/dL (6.0-8.3)
[2023-09-04 10:09] LABS: Alanine Aminotransferase* 20 U/L (4-35); Alkaline Phosphatase* 86 U/L (40-150); Blood Urea Nitrogen* 14 mg/dL (7-30); Calcium* 9.4 mg/dL (8.4-10.6); Glucose* 103 mg/dL (60-115)
[2023-09-04 10:11] LABS: C Reactive Protein* 0.8 mg/dL (0.5-1.0)
[2023-09-04] MEDS: PIPERACILLIN/TAZOBACTAM 4.5 GM in 0.9 % SODIUM CHLORIDE Mini-bag 100 ML IVPB (10:15)
[2023-09-04 10:21] LABS: Appearance Urine Clear (Clear); Bilirubin Urine Negative (Negative); Blood Urine Trace-intact (Negative); Color Urine Yellow (Yellow); Glucose Urine Negative (Negative); Ketones Urine Negative (Negative); Leukocyte Esterase Urine Negative (Negative); Nitrite Urine Negative (Negative); Protein Urine Negative (Negative); Urobilinogen Urine 0.2 (0.2-1.0)
[2023-09-04 10:22] LABS: NT Pro B Type NatriureticPept* 89 pg/mL; Troponin I* < 0.01 ng/mL (0.01-0.04)
[2023-09-04 10:35] LABS: Bacteria Urine Few; Squamous Epithelial Cell Urine Few (None-Few)
[2023-09-04 11:07] LABS: PCR FLU A Negative PCR FLU A (Negative); PCR FLU B Negative PCR FLU B (Negative); PCR RSV Negative PCR RSV (Negative); SARS PCR* Negative SARS-CoV-2 (Negative)
--- NOTE | 2023-09-04 12:05 | US_ITS ---
Patient: RBUEN MERIDA Facility:?[facility] Patient ID:?[id number] Study:?US-Abdomen limited-09/04/2023 1:53:43 PM Ordering Physician:?lazara hood Final Report: CLINICAL HISTORY: Pain FINDINGS: Nodular contour to the liver which can be seen with cirrhosis. The spleen is not visualized The visualized portions of the pancreas appears normal. The proximal abdominal aorta and IVC appear normal. There is no evidence of ascites. Possible amount of sludge in the gallbladder. Wall of the gallbladder measures 3 millimeters. Patient tender over the gallbladder tiny amount of fluid adjacent to the gallbladder measuring 2.4 x 0.5 x 0.8 centimeters gallbladder appears slightly prominent the common bile duct measures 6 mm in size within the jodi hepatis. Right kidney unremarkable. IMPRESSION: 1.Limited study due to overlying bowel gas. Possible sludge in the gallbladder which appears slightly prominent. Normal gallbladder wall. Minimal amount of fluid adjacent to the gallbladder. Patient is tender over the gallbladder. 2. Nodular contour to liver which can be seen with cirrhosis. Dictated by Madelaine Booker MD @ 09/04/2023 3:02:54 PM Signed by:?Madelaine Booker MD @09/04/2023 3:02:54 PM (Electronic Signature)
[2023-09-04 14:40] LABS: Lactate* 1.1 mmol/L (0.5-1.9)
[2023-09-04] MEDS: LACTATED RINGERS 1000 ML 1,000 ML IV (14:46)
--- NOTE | 2023-09-04 15:13 | P.SS_ITS ---
Same Day Admit/Disch: HPI History of Present Illness Time Seen by Provider: 13:00 Date Seen: 09/04/23 Chief complaint: 89F, cancer pt with port. Narrative: Hayley Unger is a 63 year old female with a history of malignant neoplasm of the cecum, and recent surgery for peritoneal omental nodes who drove herself to the ER for concerns of abdominal pain and fever. She sees Dr. Segura at [facility] after she had a cecal cancer diagnosed on a routine colonoscopy in June 2022. She had surgical resection of the cancer 07/30/2022, and then underwent chemotherapy with 6 cycles of FOLFOX between October and March of 2023 due to possible peritoneal metastases. She notes that she had difficulty with the chemotherapy especially with cold sensitivity. On 05/27/2023 she underwent debulking surgery and HIPEC at [facility] by Dr. Baldwin from hepatobiliary. Postoperatively she has been doing very well and only takes vitamin-D, no other medications. She tries to eat only organic foods and has been very careful about her diet. She has lost 50 lb over the last 2 years on purpose. She had been doing well over the last 3 months since the surgery and is not on any cancer treatments at present. She awoke today in her usual state of health around 4:00 a.m., went to the bathroom, went back to bed and woke up again around 5:30 a.m.. She then got up in gout cup of coffee and made some toast with jelly. She had 2 bowel movements this morning 1 was loose and the 2nd was normal. She started noticing some abdominal pain, it did not seem to be associated with eating and may have even started just prior to eating. The abdominal pain was diffuse and quickly escalated. She started to feel very unwell and went to lay down for a bit. When she woke up a little later she felt feverish and had chills. She took her temperature which was 100.7 degrees F. she called the ER in told on that she was coming in. By this time she was hunched over and could even stand up because she was in so much pain. She drove herself to the emergency department. In the emergency department she was noted to be writhing in abdominal pain, febrile and tachycardic. CT abdomen and pelvis was done, the results are below. Although her pain got better briefly in the emergency department, by the time she got to the floor she was acutely painful all over. Same Day Admit/Disch: ROS Review of Systems All systems: reviewed and no additional remarkable complaints except as stated [facility] Medical History (Updated 09/04/23 @ 15:44 by Kylah Hood MD) Herpes labialis ?B00.1 - Herpesviral vesicular dermatitis (ICD-10) Colon cancer ?C18.9 - Malignant neoplasm of colon, unspecified (ICD-10) Hypertension ?I10 - Essential (primary) hypertension (ICD-10) Dyslipidemia ?E78.5 - Hyperlipidemia, unspecified (ICD-10) Class 1 obesity ?E66.9 - Obesity, unspecified (ICD-10) Chronic gastroesophageal reflux disease ?K21.9 - Gastro-esophageal reflux disease without esophagitis (ICD-10) Allergic rhinitis ?J30.9 - Allergic rhinitis, unspecified (ICD-10) Recurrent sinusitis ?J32.9 - Chronic sinusitis, unspecified (ICD-10) Polyp of colon (10/14/15) ?K63.5 - Polyp of colon (ICD-10) History of vitamin D deficiency ?Z86.39 - Personal history of other endocrine, nutritional and metabolic disease (ICD-10) History of coronary angiogram (09/28/17) ?Z98.890 - Other specified postprocedural states (ICD-10) History of cardiovascular stress test (09/14/17) ?Z92.89 - Personal history of other medical treatment (ICD-10) Surgical History (Updated 09/04/23 @ 15:45 by Kylah Hood MD) H/O laparoscopy ?Z98.890 - Other specified postprocedural states (ICD-10) H/O partial resection of colon ?Z90.49 - Acquired absence of other specified parts of digestive tract (ICD- 10) History of total hysterectomy with removal of both tubes and ovaries (2010) ?Z90.710 - Acquired absence of both cervix and uterus (ICD-10) ?Z90.722 - Acquired absence of ovaries, bilateral (ICD-10) ?Z90.79 - Acquired absence of other genital organ(s) (ICD-10) History of colonoscopy with polypectomy (10/11/15) ?Z98.890 - Other specified postprocedural states (ICD-10) ?Z86.010 - Personal history of colonic polyps (ICD-10) History of 2 sections (1988) ?Z98.891 - History of uterine scar from previous surgery (ICD-10) Family History Maternal Grandmother Stroke Diabetes Family/Other Prostate cancer Gastric cancer Father Heart disease Social History (Updated 09/04/23 @ 15:46 by Kylah Hood MD) Narrative: [employer]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 Exercises 3-4 times per week-gym and wa lks, nonsmoker, no EtOH. Smoking Status: Never smoker Do you use any of these nicotine containing products: None Second hand tobacco smoke exposure: No How often do you have a drink containing alcohol: never AUDIT-C Alcohol total score: 0 Non-prescribed substance use: denies use service: No Exam 2 Narrative: Exam Narrative: General: Appears ill. Grayish countenance. Awake alert oriented x3. HEENT: Normocephalic atraumatic, pupils equally round and reactive to light and accommodation. Oropharynx clear. Mucous membranes are very dry. No cervical lymphadenopathy, thyromegaly or carotid bruits. No JVD. Cardiovascular: Mildly tachycardic, regular. No murmurs, gallops, or rubs. Chest: Port in place, mild tenderness, no overlying erythema or induration. No increased work of breathing. Clear to auscultation bilaterally. No crackles or wheezes. Abdomen: Healing midline incision. Bowel sounds absent. Rigid, diffusely tender with guarding. Difficult to palpate for hepatosplenomegaly. Extremities: No edema, no cyanosis or clubbing. Skin: No jaundice, no pallor, no rashes. Neuro: Grossly intact. No focal deficits. Const: Vital Signs, click to edit/add: Vital Signs - 24 hr 09/04/23 09:19 09/04/23 09:52 09/04/23 09:53 Temperature 100 F H Pulse Rate Pulse Rate [Pulse Oximeter] 114 H Respiratory Rate 22 Blood Pressure Blood Pressure [Ri ght Upper Arm] 158/96 H Pulse Oximetry 98 97 94 Oxygen Delivery Me thod Room Air Room Air 09/04/23 09:55 09/04/23 10:00 09/04/23 10:00 Temperature 100.7 F H Pulse Rate Pulse Rate [Pulse Oximeter] 108 H Respiratory Rate 22 Blood Pressure Blood Pressure [Ri ght Upper Arm] 131/80 Pulse Oximetry 95 94 Oxygen Delivery Me thod Room Air 09/04/23 10:02 09/04/23 10:03 09/04/23 10:46 Temperature Pulse Rate Pulse Rate [Pulse Oximeter] Respiratory Rate Blood Pressure Blood Pressure [Ri ght Upper Arm] Pulse Oximetry 91 90 93 Oxygen Delivery Me thod Room Air 09/04/23 10:47 09/04/23 11:00 09/04/23 11:02 Temperature 101 F H 99.6 F Pulse Rate 105 H 107 H Pulse Rate [Pulse Oximeter] 105 H Respiratory Rate 20 Blood Pressure 154/81 H Blood Pressure [Ri ght Upper Arm] 147/81 H Pulse Oximetry 96 96 94 Oxygen Delivery Me thod Room Air 09/04/23 11:03 09/04/23 11:30 09/04/23 11:32 Temperature Pulse Rate 106 H 110 H 111 H Pulse Rate [Pulse Oximeter] Respiratory Rate Blood Pressure 143/81 H Blood Pressure [Ri ght Upper Arm] Pulse Oximetry 94 92 93 Oxygen Delivery Me thod 09/04/23 12:00 09/04/23 12:01 09/04/23 12:02 Temperature Pulse Rate 110 H 110 H 111 H Pulse Rate [Pulse Oximeter] Respiratory Rate Blood Pressure 126/74 Blood Pressure [Ri ght Upper Arm] Pulse Oximetry 92 93 92 Oxygen Delivery Me thod 09/04/23 12:30 09/04/23 12:31 Temperature Pulse Rate 102 H 103 H Pulse Rate [Pulse Oximeter] Respiratory Rate Blood Pressure 102/53 L Blood Pressure [Ri ght Upper Arm] Pulse Oximetry 92 93 Oxygen Delivery Me thod Same Day Admit/Disch: Data Data Completed and Pending Labs on day of discharge: Labs from last 24 hours 09/04/23 09/04/23 09/04/23 14:34 10:09 09:40 WBC RBC Hgb Hct MCV MCH MCHC RDW Coeff of Dorian Plt Count Neut % (Auto) Lymph % (Auto) Kittson % (Auto) Eos % (Auto) Baso % (Auto) Neut # (Auto) Lymph # (Auto) Kittson # (Auto) Eos # (Auto) Baso # (Auto) Abs Immat Gran (auto) Imm/Tot Granulo (auto) INR Sodium Potassium Chloride Carbon Dioxide Anion Gap BUN Creatinine Estimated Creat Clear Estimated GFR Glucose Lactate 1.1 Calcium Total Bilirubin Direct Bilirubin AST ALT Alkaline Phosphatase Troponin I C-Reactive Protein NT-Pro-B Natriuret Pep Total Protein Albumin Amylase Urine Color Yellow Urine Appearance Clear Urine pH 7.0 Ur Specific Thurmond 1.020 Urine Protein Negative Urine Glucose (UA) Negative Urine Ketones Negative Urine Blood Trace-intact A Urine Nitrite Negative Urine Bilirubin Negative Urine Urobilinogen 0.2 Ur Leukocyte Esterase Negative Urine RBC 2-5 A Urine WBC 2-5 Ur Squamous Epith Cells Few Urine Bacteria Few A SARS-CoV-2 (PCR) Negative SARS-CoV-2 Influenza Type A (PCR) Negative PCR FLU A Influenza Type B (PCR) Negative PCR FLU B RSV (PCR) Negative PCR RSV 09/04/23 09:30 WBC 10.35 RBC 4.61 Hgb 13.5 Hct 41.0 MCV 89 MCH 29 MCHC 33 RDW Coeff of Dorian 12.8 Plt Count 170 Neut % (Auto) 86.5 H Lymph % (Auto) 10.0 L Kittson % (Auto) 2.7 Eos % (Auto) 0.5 Baso % (Auto) 0.1 Neut # (Auto) 9.00 H Lymph # (Auto) 1.00 Kittson # (Auto) 0.30 Eos # (Auto) 0.05 Baso # (Auto) 0.01 Abs Immat Gran (auto) 0.02 Imm/Tot Granulo (auto) 0.2 INR 0.94 Sodium 139 Potassium 3.8 Chloride 105 Carbon Dioxide 27 Anion Gap 7 BUN 14 Creatinine 0.6 Estimated Creat Clear 47.63 Estimated GFR 101 Glucose 103 Lactate 2.1 H Calcium 9.4 Total Bilirubin 0.6 Direct Bilirubin 0.0 AST 21 ALT 20 Alkaline Phosphatase 86 Troponin I < 0.01 L C-Reactive Protein 0.8 NT-Pro-B Natriuret Pep 89 Total Protein 7.8 Albumin 4.8 Amylase 65 Urine Color Urine Appearance Urine pH Ur Specific Thurmond Urine Protein Urine Glucose (UA) Urine Ketones Urine Blood Urine Nitrite Urine Bilirubin Urine Urobilinogen Ur Leukocyte Esterase Urine RBC Urine WBC Ur Squamous Epith Cells Urine Bacteria SARS-CoV-2 (PCR) Influenza Type A (PCR) Influenza Type B (PCR) RSV (PCR) Preliminary micro results at discharge 09/04/23 10:09 Urine Culture - Preliminary Urine,Clean Catch Culture in Progress 09/04/2023 EKG: Normal sinus rhythm, 98 beats per minute, normal EKG. Study: CT-Chest/Abd/Pelvis w/79mL Isovue 370-09/04/2023 10:52:08 AM Ordering Physician: ADRIÁN Final Report: INDICATION: Fever. History of a cecal cancer. TECHNIQUE: Multiple axial images were obtained from the apices to the symphysis pubis after administration of 79 mL of Isovue-370 intravenously. Sagittal and coronal re- formatted images were obtained. COMPARISON: 01/06/2023. FINDINGS: Chest. There is a calcified granuloma in the right middle lobe. There is a stable 0.2 cm pulmonary nodule in the right middle lobe on image #16 of series 6. There is a stable area scarring in the right middle lobe. There is no new suspicious pulmonary nodule. There is no pleural effusion. There is a right-sided Port-A-Cath. There is no axillary, mediastinal or hilar adenopathy. Abdomen and pelvis: There are stable tiny low-dense areas in the left lobe of the liver which are to small to characterized on this study but are likely cysts. The spleen, pancreas and adrenals are unremarkable. There is no mass or hydronephrosis in the kidneys. There is trace amount of fluid adjacent to the gallbladder. There is no mass or hydronephrosis in the kidneys. There is no evidence of bowel obstruction. There are postoperative changes consistent with a right francheska colectomy. There is a trace amount of fluid is to a with stranding of the fat adjacent to a suture line in the right lower quadrant. There is a small amount of free fluid in the pelvis. There is no free intraperitoneal air. There is an anterior abdominal wall incision wound. There is a new 1.9 x 1.4 cm soft tissue nodule in the incision site in the anterior LL musculature in the midline. The abdominal aorta is normal in caliber. There are atherosclerotic calcifications. No adenopathy. There are varicose veins in the left anterior abdominal wall subcutaneous tissue. There are phleboliths in the pelvis. There are degenerative changes in the spine. IMPRESSION: 1. Postoperative changes consistent with a right hemicolectomy. 2. Trace amount of fluid and mild stranding of the fat adjacent to the suture line in the colon in the right lower quadrant. Small amount of free fluid in the pelvis with a trace amount of fluid adjacent to the gallbladder. 3. No definite abscess seen. 4. New 1.9 x 1.4 cm soft tissue nodule in the incision in the anterior wall musculature. 5. Stable tiny low-dense areas in the liver which are too small to fully characterize but are likely tiny cysts. 6. Stable 0.2 cm pulmonary nodule right middle lobe. Calcified granuloma right middle lobe. Please note that all CT scans at this facility use dose modulation, iterative reconstruction, and/or weight-based dosing when appropriate to reduce radiation dose to as low as reasonably achievable. Dictated by Feliciano De La Cruz MD @ 09/04/2023 11:48:10 AM (Electronic Signature) Study: US-Abdomen limited-09/04/2023 1:53:43 PM Ordering Physician: kylah hood Final Report: CLINICAL HISTORY: Pain FINDINGS: Nodular contour to the liver which can be seen with cirrhosis. The spleen is not visualized The visualized portions of the pancreas appears normal. The proximal abdominal aorta and IVC appear normal. There is no evidence of ascites. Possible amount of sludge in the gallbladder. Wall of the gallbladder measures 3 millimeters. Patient tender over the gallbladder tiny amount of fluid adjacent to the gallbladder measuring 2.4 x 0.5 x 0.8 centimeters gallbladder appears slightly prominent the common bile duct measures 6 mm in size within the jodi hepatis. Right kidney unremarkable. IMPRESSION: 1.Limited study due to overlying bowel gas. Possible sludge in the gallbladder which appears slightly prominent. Normal gallbladder wall. Minimal amount of fluid adjacent to the gallbladder. Patient is tender over the gallbladder. 2. Nodular contour to liver which can be seen with cirrhosis. Dictated by Madelaine Booker MD @ 09/04/2023 3:02:54 PM (Electronic Signature) Same Day Admit/Disch: Sum Time Spent with Patient Time attestation: Total time spent providing and/or coordinating discharge services: Provider Date of admission: 09/04/23 14:22 Primary care physician: Charla Carrington MD DS: Diagnosis Discharge Diagnosis (1) Severe sepsis: Status: Acute Problem details: Meets sepsis criteria with elevated temperature of 101? F and heart rate greater than 90 and lactate of 2.1. Notably she is also borderline low blood pressures where is she is usually hypertensive. Suspect is source is abdominal, however I do not have a true source and so will treat her with broad-spectrum antibiotics and transfer to [facility] as below. 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 - 11/15-04/17 received 6 cycles FOLFOX, complicated by fatigue, mouth sores, nausea, cold sensitivity - 05/27/2023 debulking surgery and HIPEC at [facility], Dr. Baldwin - oncologist Dr. Segura @ [facility]. Same Day Admit/Disch: Med Pre-admit Medications Home Medications Medication Instructions Recorded Confirmed Type calcium carbonate (Calcium 500) 500 mg PO Q4-6H PRN 11/09/22 03/29/23 History loperamide 2 mg capsule 2 mg PO Q6H PRN 11/09/22 03/29/23 History ondansetron HCl 8 mg tablet 8 mg PO Q8H PRN 11/09/22 03/29/23 History peg 400-propylene glycol (PF) 0.4 1 drp ophthalmic (eye) TID 11/09/22 03/29/23 History %-0.3 % eye drops in a dropperette (Systane (PF)) prochlorperazine maleate 10 mg 10 mg PO Q6H PRN 11/09/22 03/29/23 History tablet simethicone 80 mg chewable tablet 80 mg PO BID-TID PRN 11/09/22 03/29/23 History (Gas Relief 80 (simethicone)) acetaminophen 500 mg tablet 1,000 mg PO Q6H PRN 12/08/22 09/04/23 History (Tylenol Extra Strength) Magic Mouthwash 5 ml PO QID PRN #120 mL 03/12/23 03/29/23 History (Lidocaine/Benadryl/Maalox) 120 mL suspension acyclovir 400 mg tablet 400 mg PO BID PRN 03/17/23 09/04/23 History cholecalciferol (vitamin D3) 25 25 mcg PO DAILY 09/04/23 09/04/23 History mcg (1,000 unit) capsule (Vitamin D3)
[2023-09-04] MEDS: PIPERACILLIN/TAZOBACTAM 3.375 GM in 0.9 % SODIUM CHLORIDE Mini-bag 100 ML IVPB (15:48)
[2023-09-04] MEDS: ONDANSETRON 2 MG/ML inj 4 MG IVP (15:57)
[2023-09-04] MEDS: LACTATED RINGERS 1000 ML 1,000 ML 125 ML IV (16:00)
--- NOTE | 2023-09-04 18:02 | PC.NURSE ---
PATIENT ADMITTED WITH ABDOMINAL PAIN AND FEVER. PATIENT RATED PAIN 4-5/10. ABDOMEN TENDER WITH MILD PALPATION. BOWEL SOUNDS HYPOACTIVE. PATIENT REPORTS BM THIS AM. DENIED N/V. DENIES RECENT DECREASE IN APPETITE. TELE SHOWING NSR. REPORT GIVEN TO RN AT [facility] AND PATIENT TRANSFERRED VIA EMS TO [facility].
== END 2023-09-04 15:59 | disposition short-term general hospital (02) | DRG 720 ==
LOC: ED 12:05 → MEDSURG 12:58
PROVIDERS: Admitting Provider Family Medicine; Emergency Provider Family Medicine; PCP Family Medicine; Visit Provider Family Medicine
DX: A41.9 Sepsis, unspecified organism (principal); K65.9 Peritonitis, unspecified; R65.20 Severe sepsis without septic shock; R10.84 Generalized abdominal pain; Z90.49 Acquired absence of other specified parts of digestive tract; C18.9 Malignant neoplasm of colon, unspecified; I10 Essential (primary) hypertension; E78.5 Hyperlipidemia, unspecified
CPT/HCPCS: 36415; 71260; 74177; 76705; 80048; 80076; 81001; 82150; 83605; 83880; 84484; 85025; 85610; 86140; 87040; 87086; 87631; 93005; 94761; 99285; J2060; J2270; J2405; J2543; J3370; J7030; J7120; Q9967

== ENCOUNTER 2023-09-04 15:45 | Outpatient (CLI) | payer BC, SELFPAY | END 2023-09-04 15:46 | disposition home or self-care (01) | LOC: AMB 09-05 05:59 | PROVIDERS: PCP Family Medicine; Visit Provider Family Medicine | DX: R10.9 Unspecified abdominal pain (principal); C18.0 Malignant neoplasm of cecum | CPT/HCPCS: A0425; A0434 ==

== ENCOUNTER 2023-09-09 15:00 | Emergency (ER) | payer BC, SELFPAY ==
[2023-09-09] VITALS (24 sets, daily range): BP systolic 96–130; BP diastolic 56–75; PULSE 89–122; RESP 20; TEMP 37.8–38.3; O2SAT 88–97
--- NOTE | 2023-09-09 16:04 | CT_ITS ---
Patient: RUBEN MERIDA Facility:?[facility] Patient ID:?[id number] Site Patient ID:?[id number]. Site :?[id number] Study:?CT-Chest PE PROTOCOL W/ 95CC IOSVUE 370-09/09/2023 5:35:40 PM Ordering Physician:jewel Final Report: INDICATION: Left lower quadrant pain, fever. History of cecal cancer. TECHNIQUE: CT chest PE was acquired with 95 cc Isovue 370 IV contrast. COMPARISON: September 04, 2023. FINDINGS: Heart and vasculature: Contrast opacification of the pulmonary arterial tree is adequate. No sign of pulmonary embolism. Heart size is normal. Thoracic aorta and pulmonary artery are normal in caliber. Lungs and pleura: No suspicious nodules or infiltrates. Streaky bibasilar consolidations, likely atelectasis or aspiration. No pleural effusions, pleural thickening, or pneumothorax. Lymph nodes/mediastinum: No mediastinal, hilar, or axillary adenopathy. Chest wall: Right chest wall port. No masses. Upper abdomen: Please refer to same-day CT abdomen/pelvis for further evaluation. Bones: Unremarkable for age. IMPRESSION: No pulmonary embolism. Streaky bibasilar consolidations, likely atelectasis or aspiration. No focal consolidations. Please refer to same-day CT abdomen/pelvis for further evaluation. Please note that all CT scans at this facility use dose modulation, iterative reconstruction, and/or weight-based dosing when appropriate to reduce radiation dose to as low as reasonably achievable. Dictated by Aki Melendez MD @ 09/09/2023 5:55:41 PM Signed by:?Aki Melendez MD @09/09/2023 5:55:41 PM (Electronic Signature)
--- NOTE | 2023-09-09 16:04 | CT_ITS ---
Patient: RUBEN MERIDA Facility:?[facility] Patient ID:?[id number] Site Patient ID:?[id number]. Site :?[id number] Study:?CT-Abdomen/Pelvis W/ 95CC IOSVUE 370-09/09/2023 5:36:16 PM Ordering Physician:jewel Final Report: INDICATION: Left lower quadrant pain,fever. TECHNIQUE: CT abdomen and pelvis acquired with 95 cc Isovue 370 IV contrast. COMPARISON: September 04, 2023. FINDINGS: Lower chest: Please refer to same day CT chest for further evaluation. Liver: Tiny hypodensities, too small to characterize. Normal in size and attenuation. Gallbladder and bile ducts: Unremarkable. No stones or inflammation. No biliary dilatation. Pancreas: Unremarkable. No mass or inflammation. Spleen: Unremarkable. Normal in size. No masses. Adrenal glands: Unremarkable. No nodules. Kidneys: Unremarkable. No suspicious masses, stones, or hydronephrosis. GI tract: Postsurgical changes of right hemicolectomy. Mild wall thickening/hyperemia of multiple loops of mid to distal small bowel and remaining colon. Some prominent loops of proximal small bowel without definite transition point. Vasculature: Abdominal aorta is normal in caliber. Mesenteric arteries are patent. Lymph nodes: No lymphadenopathy. Peritoneum/Abdominal Wall: Interval increase in small volume intraperitoneal fluid, most pronounced in the pelvis, perihepatic/perigastric region, with peritoneal enhancement. No free air. Pelvis: Hysterectomy. Bones: Unremarkable for age. IMPRESSION: Interval increase of small volume intraperitoneal fluid most pronounced in the perihepatic/perigastric region and pelvis with some peritoneal enhancement concerning for peritonitis and early abscess formation. No free intraperitoneal air. Postsurgical changes of right hemicolectomy. Mild wall thickening/hyperemia of multiple loops of mid to distal small bowel and remaining colon, likely enterocolitis. Some prominent loops of proximal small bowel without definite transition point favored to be reactive ileus. Please note that all CT scans at this facility use dose modulation, iterative reconstruction, and/or weight-based dosing when appropriate to reduce radiation dose to as low as reasonably achievable. Dictated by Aki Melendez MD @ 09/09/2023 6:07:25 PM Signed by:?Aki Melendez MD @09/09/2023 6:12:55 PM (Electronic Signature)
--- NOTE | 2023-09-09 16:56 | ED.GENADULT ---
HPI - General Adult General Date Seen: 09/09/23 Chief complaint: Fever Stated complaint: temp of 101.8 Time Seen by Provider: 09/09/23 15:43 Source: patient, RN notes reviewed and old records reviewed Mode of arrival: ambulatory Limitations: no limitations History of Present Illness HPI narrative: Patient is a 63-year-old woman with a pertinent past medical history of apparently a fairly aggressive cecal cancer, she was treated for this with surgery and chemotherapy through [facility], Dr. Michele Baldwin. She presented here on September 03 with some upper abdominal pain and abrupt onset of fever, chills, and generally feeling poorly. She had an evaluation here including a CT of the chest abdomen and pelvis, labs including blood cultures and urine culture. She was subsequently transferred down to [place]. She tells me that she was hospitalized there for 4 days. She says that her gallbladder was thoroughly evaluated and not felt to be the cause of her problems. She was treated with IV antibiotics while they were in the discharged home on Augmentin. She reports that she did not have any fevers in the hospital the last days she was there. She has been home for 2 days, did not have fevers throughout the day yesterday but by 11:00 p.m. last night was starting to feel more poorly. She says her temperature was 99? point something at that time. Today, she notes home onset again of upper abdominal pain, primarily left upper abdomen. This extends somewhat into her chest. Her chest feels tight and she feels like it is kind of hard to breathe. She noted a temperature of 101.8? at home along with some chills. She has had nausea but denies vomiting. She has had some diarrhea which seems worse since starting antibiotics. She has not had any black or bloody stools. Related Data Home Medications Medication Instructions Recorded Confirmed calcium carbonate (Calcium 500) 500 mg PO Q4-6H PRN 11/09/22 09/09/23 loperamide 2 mg capsule 2 mg PO Q6H PRN 11/09/22 09/09/23 ondansetron HCl 8 mg tablet 8 mg PO Q8H PRN 11/09/22 09/09/23 peg 400-propylene glycol (PF) 0.4 1 drp ophthalmic (eye) TID 11/09/22 09/09/23 %-0.3 % eye drops in a dropperette (Systane (PF)) prochlorperazine maleate 10 mg 10 mg PO Q6H PRN 11/09/22 09/09/23 tablet simethicone 80 mg chewable tablet 80 mg PO BID-TID PRN 11/09/22 09/09/23 (Gas Relief 80 (simethicone)) acetaminophen 500 mg tablet 1,000 mg PO Q6H PRN 12/08/22 09/09/23 (Tylenol Extra Strength) Magic Mouthwash 5 ml PO QID PRN #120 mL 03/12/23 09/09/23 (Lidocaine/Benadryl/Maalox) 120 mL suspension acyclovir 400 mg tablet 400 mg PO BID PRN 03/17/23 09/09/23 cholecalciferol (vitamin D3) 25 25 mcg PO DAILY 09/04/23 09/09/23 mcg (1,000 unit) capsule (Vitamin D3) amoxicillin 875 mg-potassium 1 tab PO BID 09/09/23 09/09/23 clavulanate 125 mg tablet celecoxib 200 mg capsule 1 PO BID 09/09/23 Previous Rx's Medication Instructions Recorded magnesium oxide 500 mg capsule 500 mg PO BID #60 caps 03/17/23 penciclovir 1 % topical cream 1 applic topical Q2H 4 days #5 03/23/23 grams Allergies Allergy/AdvReac Type Severity Reaction Status Date / Time doxycycline Allergy Intermediate Rash Verified 09/09/23 17:29 codeine AdvReac Intermediate Nausea Verified 09/09/23 17:29 lisinopril AdvReac Unknown Cough Verified 09/09/23 17:29 acyclovir AdvReac Verified 09/09/23 17:29 Review of Systems Status of ROS: Reports: 10 or more systems reviewed and unremarkable except as noted in History and below [facility] Medical History Herpes labialis ?B00.1 - Herpesviral vesicular dermatitis (ICD-10) Colon cancer ?C18.9 - Malignant neoplasm of colon, unspecified (ICD-10) Hypertension ?I10 - Essential (primary) hypertension (ICD-10) Dyslipidemia ?E78.5 - Hyperlipidemia, unspecified (ICD-10) Class 1 obesity ?E66.9 - Obesity, unspecified (ICD-10) Chronic gastroesophageal reflux disease ?K21.9 - Gastro-esophageal reflux disease without esophagitis (ICD-10) Allergic rhinitis ?J30.9 - Allergic rhinitis, unspecified (ICD-10) Recurrent sinusitis ?J32.9 - Chronic sinusitis, unspecified (ICD-10) Polyp of colon (10/14/15) ?K63.5 - Polyp of colon (ICD-10) History of vitamin D deficiency ?Z86.39 - Personal history of other endocrine, nutritional and metabolic disease (ICD-10) History of coronary angiogram (09/28/17) ?Z98.890 - Other specified postprocedural states (ICD-10) History of cardiovascular stress test (09/14/17) ?Z92.89 - Personal history of other medical treatment (ICD-10) Surgical History H/O laparoscopy ?Z98.890 - Other specified postprocedural states (ICD-10) H/O partial resection of colon ?Z90.49 - Acquired absence of other specified parts of digestive tract (ICD-10) History of total hysterectomy with removal of both tubes and ovaries (2010) ?Z90.710 - Acquired absence of both cervix and uterus (ICD-10) ?Z90.722 - Acquired absence of ovaries, bilateral (ICD-10) ?Z90.79 - Acquired absence of other genital organ(s) (ICD-10) History of colonoscopy with polypectomy (10/11/15) ?Z98.890 - Other specified postprocedural states (ICD-10) ?Z86.010 - Personal history of colonic polyps (ICD-10) History of 2 sections (1988) ?Z98.891 - History of uterine scar from previous surgery (ICD-10) Family History Maternal Grandmother Stroke Diabetes Family/Other Prostate cancer Gastric cancer Father Heart disease 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 Exercises 3-4 times per week-gym and walks, nonsmoker, no EtOH. What is your current living situation?: I presently have a place to live Problems where you live: no known problems Problems where you live details: N/A In the past 12 months, utilities in danger of being shut off: no In past 12 months, lack of transportation kept you from medical appts, meetings, work, or getting things needed for daily living: no In the past 12 mos, have been you worried that your food would run out before you had money to buy more?: never true In the past 12 mos, the food you bought just didn't last and you didn't have money to buy more?: never true Smoking Status: Never smoker Do you use any of these nicotine containing products: None Second hand tobacco smoke exposure: No How often do you have a drink containing alcohol: never How often do you have six or more drinks on one occasion: Never AUDIT-C Alcohol total score: 0 Non-prescribed substance use: denies use Caffeine: No How often does anyone, including family, friends and others, physically hurt you: never How often does anyone, including family, friends and others, insult or talk down to you: never How often does anyone, including family, friends and others, threaten you with harm: never How often does anyone, including family, friends and others, scream or curse at you: never service: No Exam Narrative: Exam Narrative: Vital signs as noted above. In general, an alert, nontoxic woman, she looks somewhat fatigued and mildly uncomfortable. Head: Normocephalic, atraumatic. Eyes: Pupils are equal reactive. Extraocular movements are full. Conjunctivae are normal. ENT: Mucous membranes are moist. Neck: Supple without lymphadenopathy. No meningeal signs. Heart: Tachycardic, regular. No audible murmur. Port in place in the right upper chest, no significant erythema or drainage. Lungs: Clear bilaterally. No increased work of breathing, crackles or wheezes. Abdomen: Soft, nondistended. She does have some left upper quadrant tenderness without rebound guarding or rigidity. Right upper quadrant seems nontender at this time, no lower abdominal tenderness. Bowel sounds present. Extremities: Well perfused. No edema. No calf tenderness. Pulses intact. Neurologic: Patient is alert and oriented to person and place. Speech is fluent. Face is symmetric. Moves all extremities equally. Affect: Normal. Skin: Warm and dry. Well perfused. Const: Vital Signs, click to edit/add: Vital Signs - 24 hr 09/09/23 15:17 09/09/23 16:59 09/09/23 17:48 Temperature 100.1 F H Pulse Rate 111 H Pulse Rate [Right] 122 H Respiratory Rate 20 Blood Pressure Blood Pressure [Ri ght Upper Arm] 117/75 Pulse Oximetry 95 90 Oxygen Delivery Me thod Room Air 09/09/23 18:00 09/09/23 18:15 09/09/23 18:30 Temperature Pulse Rate 110 H 109 H 111 H Pulse Rate [Right] Respiratory Rate Blood Pressure Blood Pressure [Ri ght Upper Arm] Pulse Oximetry 91 91 91 Oxygen Delivery Me thod 09/09/23 18:32 09/09/23 18:45 09/09/23 19:00 Temperature Pulse Rate 110 H 103 H 109 H Pulse Rate [Right] Respiratory Rate Blood Pressure 130/74 Blood Pressure [Ri ght Upper Arm] Pulse Oximetry 91 91 90 Oxygen Delivery Me thod 09/09/23 19:02 09/09/23 19:36 Temperature 100.9 F H Pulse Rate 107 H Pulse Rate [Right] Respiratory Rate Blood Pressure 121/75 Blood Pressure [Ri ght Upper Arm] Pulse Oximetry 90 Oxygen Delivery Me thod Documenting provider has reviewed patient's vital signs: yes Course Course ED Course: Patient's records were reviewed. I plan to do some testing here and then will touch base with her care team at [place] as well. I have elected to repeat CT of the chest abdomen pelvis, and do CT of the chest as a PE protocol this time, that was not done last time. Labs including blood cultures were obtained. I reviewed records and previous tests, blood in urine cultures were negative. Have ordered as C diff and the Lyme test just for completeness. She is tachycardic here, low-grade elevation in her temperature with a temperature of 100.1?. Blood pressure 117/75. I have ordered a L of normal saline to start. Lactate and procalcitonin ordered. Diagnostic considerations include an as yet undiagnosed pulmonary or abdominal infection, pulmonary embolism, sepsis due to other source, endocarditis, drug reaction, among others. Patient's workup here was notable initially for a white blood cell count of 17 and hemoglobin of 6. In review of her labs, she had a normal white blood cell count a couple days ago and hemoglobin of 9.6 at [place]. Her hemoglobin here was 13 on the . We did do blood cultures, metabolic panel was unremarkable, blood sugar 125, lactate 1.7. LFTs notable for an AST of 45, normal bilirubin, alk-phos of 229, CRP of 12, lipase 71. Procalcitonin was normal at 0.25. Urinalysis was notable for 1+ ketones, otherwise negative. She went on to have a CT scan of the chest, PE protocol, which by my review did not show evidence of pulmonary embolism consolidation or fluid collections. Final radiology read as follows:FINDINGS: Heart and vasculature: Contrast opacification of the pulmonary arterial tree is adequate. No sign of pulmonary embolism. Heart size is normal. Thoracic aorta and pulmonary artery are normal in caliber. Lungs and pleura: No suspicious nodules or infiltrates. Streaky bibasilar consolidations, likely atelectasis or aspiration. No pleural effusions, pleural thickening, or pneumothorax. Lymph nodes/mediastinum: No mediastinal, hilar, or axillary adenopathy. Chest wall: Right chest wall port. No masses. Upper abdomen: Please refer to same-day CT abdomen/pelvis for further evaluation. Bones: Unremarkable for age. IMPRESSION: No pulmonary embolism. Streaky bibasilar consolidations, likely atelectasis or aspiration. No focal consolidations. Abdominal CT read by radiology as follows:FINDINGS: Lower chest: Please refer to same day CT chest for further evaluation. Liver: Tiny hypodensities, too small to characterize. Normal in size and attenuation. Gallbladder and bile ducts: Unremarkable. No stones or inflammation. No biliary dilatation. Pancreas: Unremarkable. No mass or inflammation. Spleen: Unremarkable. Normal in size. No masses. Adrenal glands: Unremarkable. No nodules. Kidneys: Unremarkable. No suspicious masses, stones, or hydronephrosis. GI tract: Postsurgical changes of right hemicolectomy. Mild wall thickening/hyperemia of multiple loops of mid to distal small bowel and remaining colon. Some prominent loops of proximal small bowel without definite transition point. Vasculature: Abdominal aorta is normal in caliber. Mesenteric arteries are patent. Lymph nodes: No lymphadenopathy. Peritoneum/Abdominal Wall: Interval increase in small volume intraperitoneal fluid, most pronounced in the pelvis, perihepatic/perigastric region, with peritoneal enhancement. No free air. Pelvis: Hysterectomy. Bones: Unremarkable for age. IMPRESSION: Interval increase of small volume intraperitoneal fluid most pronounced in the perihepatic/perigastric region and pelvis with some peritoneal enhancement concerning for peritonitis and early abscess formation. No free intraperitoneal air. Postsurgical changes of right hemicolectomy. Mild wall thickening/hyperemia of multiple loops of mid to distal small bowel and remaining colon, likely enterocolitis. Some prominent loops of proximal small bowel without definite transition point favored to be reactive ileus. I gave her Zosyn 3.375 g IV. I had initially planned to give her blood, did elect to just recheck the hemoglobin because it had changed so dramatically without clear blood loss, I ordered labs to look for hemolysis though she does have a normal bilirubin here. Repeat hemoglobin came back at 11.9, so I rechecked a CBC at that point and the repeat white blood cell count was 12, platelets remain normal. I do not have an explanation for her blood work at this point, it does appear however that her hemoglobin is in fact normal at this time and I am not going to transfuse her. I did talk with our surgeon here as well as with [facility]. I do feel she should go back to [place] given her CT findings, persistent fever, significant abdominal pain requiring repeat doses of IV narcotics here. They have accepted her in transfer. She is hemodynamically somewhat improved although mildly tachycardic. Blood pressure remains stable. Vital Signs Vital signs: Initial Vital Signs Temperature 100.1 F H 09/09/23 15:17 Temperature Source Temporal Artery Scan 09/09/23 15:17 Pulse Rate 122 H 09/09/23 15:17 Respiratory Rate 20 09/09/23 15:17 Blood Pressure 117/75 09/09/23 15:17 Blood Pressure Mean 89 09/09/23 15:17 Blood Pressure Position Sitting 09/09/23 15:17 Pulse Oximetry 95 09/09/23 15:17 Vital Signs Temperature 100.1 F H 09/09/23 15:17 Pulse Rate 122 H 09/09/23 15:17 Respiratory Rate 20 09/09/23 15:17 Blood Pressure 117/75 09/09/23 15:17 Pulse Oximetry 95 09/09/23 15:17 Temperature 100.9 F H 09/09/23 19:36 Pulse Rate 107 H 09/09/23 19:02 Respiratory Rate 09/09/23 15:17 Blood Pressure 121/75 09/09/23 19:02 Pulse Oximetry 90 09/09/23 19:02 Oxygen Delivery Method Room Air 09/09/23 16:59 Medications Administered Medications: Discontinued Medications Generic Name Dose Route Start Last Admin Trade Name Esau PRN Reason Stop Dose Admin Sodium Chloride 500 mls @ 500 mls/hr 09/09/23 16:04 09/09/23 18:30 0.9 % Sodium Chloride 500 Ml IV 09/09/23 17:03 Infused .Q1H ONE Infusion Piperacillin Sod/Tazobactam 100 mls @ 100 mls/hr 09/09/23 18:59 09/09/23 20:51 Sod 3.375 gm/ Sodium Chloride IVPB 09/09/23 19:00 Infused ONCE ONE Infusion Morphine Sulfate 4 mg 09/09/23 16:04 09/09/23 17:26 Morphine 4 Mg/Ml Inj IVP 09/09/23 16:05 4 mg ONCE ONE Administration Morphine Sulfate 4 mg 09/09/23 19:01 09/09/23 19:47 Morphine 4 Mg/Ml Inj IVP 09/09/23 19:02 4 mg ONCE ONE Administration Ondansetron HCl 4 mg 09/09/23 16:04 09/09/23 17:26 Ondansetron 2 Mg/Ml Inj IVP 09/09/23 16:05 4 mg ONCE ONE Administration Medical Decision Making Lab Data Labs: Lab Results 09/09/23 09/09/23 09/09/23 Range/Units 16:25 16:48 19:34 WBC 17.01 H 11.58 H (4.50-11.00) K/uL RBC 2.09 L 4.08 (4.00-5.20) m/uL Hgb 6.1 L* 11.9 L (12.0-16.0) gm/dL Hct 18.6 L (33.0-51.0) % MCV 89 (80-100) fL MCH 29 (26-34) pg MCHC 33 (32-36) gm/dL RDW Coeff of Dorian 13.3 (11.5-15.5) % Plt Count 295 (140-440) K/uL Neut % (Auto) 86.0 H (42.0-72.0) % Lymph % (Auto) 10.0 L (20-44) % [place] % (Auto) 3.2 (0.0-11.0) % Eos % (Auto) 0.4 (0.0-7.0) % Baso % (Auto) 0.2 (0.0-3.0) % Neut # (Auto) 14.60 H (1.7-7.0) K/uL Lymph # (Auto) 1.70 (0.90-2.90) K/uL [place] # (Auto) 0.50 (0.00-0.90) K/UL Eos # (Auto) 0.10 (0.00-0.50) K/uL Baso # (Auto) 0.00 (0.00-0.30) K/uL Abs Immat Gran (auto) 0.00 (0.00-0.30) K/uL Imm/Tot Granulo (auto) 0.2 % Sodium 137 (135-149) mmol/L Potassium 3.8 (3.6-5.1) mmol/L Chloride 103 (96-114) mmol/L Carbon Dioxide 23 (20-32) mmol/L Anion Gap 11 (7-15) mEq/L BUN 8 (7-30) mg/dL Creatinine 0.5 (0.5-1.5) mg/dL Estimated Creat Clear 45.54 Estimated GFR 105 ml/min Glucose 125 H (60-115) mg/dL Lactate 1.7 (0.5-1.9) mmol/L Calcium 9.4 (8.4-10.6) mg/dL Total Bilirubin 0.4 (0.1-1.5) mg/dL Direct Bilirubin 0.0 (0.0-0.5) mg/dL AST 45 H (12-35) U/L ALT 34 (4-35) U/L Alkaline Phosphatase 229 H (40-150) U/L C-Reactive Protein 11.8 H (0.5-1.0) mg/dL Total Protein 7.0 (6.0-8.3) g/dL Albumin 3.8 (3.3-5.0) g/dL Lipase 71 (23-300) U/L Procalcitonin 0.25 (<0.50) ng/mL Urine Color Yellow (Yellow) Urine Appearance Clear (Clear) Urine pH 6.5 (5.0-8.5) Ur Specific Red Level 1.020 (1.000-1.030) Urine Protein 1+ A (Negative) Urine Glucose (UA) Negative (Negative) Urine Ketones 1+ A (Negative) Urine Blood Trace-intact A (Negative) Urine Nitrite Negative (Negative) Urine Bilirubin 1+ A (Negative) Urine Urobilinogen 0.2 (0.2-1.0) Ur Leukocyte Esterase Negative (Negative) Urine RBC 0-2 (0-2) Urine WBC 0-2 (0-5) Ur Squamous Epith Cells Few (None-Few) Urine Bacteria None (None) 09/09/23 Range/Units 19:34 WBC (4.50-11.00) K/uL RBC (4.00-5.20) m/uL Hgb 12.0 (12.0-16.0) gm/dL Hct 35.7 (33.0-51.0) % MCV 88 (80-100) fL MCH 29 (26-34) pg MCHC 34 (32-36) gm/dL RDW Coeff of Dorian 13.3 (11.5-15.5) % Plt Count 210 (140-440) K/uL Neut % (Auto) 81.4 H (42.0-72.0) % Lymph % (Auto) 13.7 L (20-44) % [place] % (Auto) 3.8 (0.0-11.0) % Eos % (Auto) 0.6 (0.0-7.0) % Baso % (Auto) 0.2 (0.0-3.0) % Neut # (Auto) 9.40 H (1.7-7.0) K/uL Lymph # (Auto) 1.60 (0.90-2.90) K/uL [place] # (Auto) 0.40 (0.00-0.90) K/UL Eos # (Auto) 0.10 (0.00-0.50) K/uL Baso # (Auto) 0.00 (0.00-0.30) K/uL Abs Immat Gran (auto) 0.00 (0.00-0.30) K/uL Imm/Tot Granulo (auto) 0.3 % Sodium (135-149) mmol/L Potassium (3.6-5.1) mmol/L Chloride (96-114) mmol/L Carbon Dioxide (20-32) mmol/L Anion Gap (7-15) mEq/L BUN (7-30) mg/dL Creatinine (0.5-1.5) mg/dL Estimated Creat Clear Estimated GFR ml/min Glucose (60-115) mg/dL Lactate (0.5-1.9) mmol/L Calcium (8.4-10.6) mg/dL Total Bilirubin (0.1-1.5) mg/dL Direct Bilirubin (0.0-0.5) mg/dL AST (12-35) U/L ALT (4-35) U/L Alkaline Phosphatase (40-150) U/L C-Reactive Protein (0.5-1.0) mg/dL Total Protein (6.0-8.3) g/dL Albumin (3.3-5.0) g/dL Lipase (23-300) U/L Procalcitonin (<0.50) ng/mL Urine Color (Yellow) Urine Appearance (Clear) Urine pH (5.0-8.5) Ur Specific Red Level (1.000-1.030) Urine Protein (Negative) Urine Glucose (UA) (Negative) Urine Ketones (Negative) Urine Blood (Negative) Urine Nitrite (Negative) Urine Bilirubin (Negative) Urine Urobilinogen (0.2-1.0) Ur Leukocyte Esterase (Negative) Urine RBC (0-2) Urine WBC (0-5) Ur Squamous Epith Cells (None-Few) Urine Bacteria (None) Discharge Plan Discharge Clinical Impression: Peritonitis Patient Disposition: [facility] Condition: Improved Prescriptions: No Action magnesium oxide 500 mg capsule 500 mg PO BID Qty: 60 1RF Hold Instructions: Doctor's Order acetaminophen [Tylenol Extra Strength] 500 mg tablet 1,000 mg PO Q6H PRN ondansetron HCl 8 mg tablet 8 mg PO Q8H PRN prochlorperazine maleate 10 mg tablet 10 mg PO Q6H PRN Hold Instructions: Doctor's Order calcium carbonate [Calcium 500] 500 mg calcium (1,250 mg) tablet,chewable 500 mg PO Q4-6H PRN Hold Instructions: Doctor's Order loperamide 2 mg capsule 2 mg PO Q6H PRN Systane (PF) 0.4-0.3 % dropperette 1 drp ophthalmic (eye) TID simethicone [Gas Relief 80 (simethicone)] 80 mg tablet,chewable 80 mg PO BID-TID PRN Magic Mouthwash (Lidocaine/Benadryl/Maalox) 120 mL suspension 5 ml PO QID PRNQty: 120 Hold Instructions: Doctor's Order acyclovir 400 mg tablet 400 mg PO BID PRN Hold Instructions: Order Change cholecalciferol (vitamin D3) [Vitamin D3] 25 mcg (1,000 unit) capsule 25 mcg PO DAILY celecoxib 200 mg capsule 1 PO BID amoxicillin-pot clavulanate 875-125 mg tablet 1 tab PO BID penciclovir 1 % cream 1 applic topical Q2H 4 Days Qty: 5 1RF Rx Instructions: Apply every 2 hours while awake for 4 days, starting at first sign of oral blister lesion Stand Alone Forms: MyHealth Info Instructions
[2023-09-09 16:59] LABS: Lactate Sepsis w/Reflex* 1.7 mmol/L (0.5-1.9)
[2023-09-09 17:01] LABS: Basophils Percent Auto 0.2 % (0.0-3.0); Eosinophils Percent Auto 0.4 % (0.0-7.0); Hematocrit 18.6 % (33.0-51.0); Immature Granulocytes Pct Auto 0.2 %; Mean Corpuscular HGB Conc 33 gm/dL (32-36); Mean Corpuscular Hemoglobin 29 pg (26-34); Mean Corpuscular Volume 89 fL (80-100); Monocytes Percent Auto 3.2 % (0.0-11.0); Platelet Count* 295 K/uL (140-440); RDW Coefficient of Variation % 13.3 % (11.5-15.5); Red Blood Count 2.09 m/uL (4.00-5.20); White Blood Count* 17.01 K/uL (4.50-11.00)
[2023-09-09 17:03] LABS: Hemoglobin* 6.1 gm/dL (12.0-16.0); Slide Review Reflex No
[2023-09-09] MEDS: ONDANSETRON 2 MG/ML inj 4 MG IVP (17:26)
[2023-09-09] MEDS: 0.9 % SODIUM CHLORIDE 500 ML 500 ML IV (17:26)
[2023-09-09] MEDS: MORPHINE 4 MG/ML INJ IVP ×2 (17:26→19:47)
[2023-09-09 17:42] LABS: Appearance Urine Clear (Clear); Bilirubin Urine 1+ (Negative); Blood Urine Trace-intact (Negative); Color Urine Yellow (Yellow); Glucose Urine Negative (Negative); Ketones Urine 1+ (Negative); Leukocyte Esterase Urine Negative (Negative); Nitrite Urine Negative (Negative); Protein Urine 1+ (Negative); Urobilinogen Urine 0.2 (0.2-1.0); pH Urine 6.5 (5.0-8.5)
[2023-09-09 17:43] LABS: Albumin* 3.8 g/dL (3.3-5.0); Chloride* 103 mmol/L (96-114)
[2023-09-09 17:44] LABS: Sodium* 137 mmol/L (135-149)
[2023-09-09 17:45] LABS: Potassium* 3.8 mmol/L (3.6-5.1)
[2023-09-09 17:46] LABS: Creatinine* 0.5 mg/dL (0.5-1.5); Est. Creatinine Clearance* 45.54; Estimated Glomerular Filt Rate 105 ml/min
[2023-09-09 17:47] LABS: Alanine Aminotransferase* 34 U/L (4-35); Alkaline Phosphatase* 229 U/L (40-150); Anion Gap 11 mEq/L (7-15); Aspartate Amino Transferase* 45 U/L (12-35); Bilirubin Total* 0.4 mg/dL (0.1-1.5); Blood Urea Nitrogen* 8 mg/dL (7-30); Calcium* 9.4 mg/dL (8.4-10.6); Carbon Dioxide* 23 mmol/L (20-32); Glucose* 125 mg/dL (60-115); Lipase* 71 U/L (23-300)
[2023-09-09 18:03] LABS: Procalcitonin* 0.25 ng/mL (<0.50)
[2023-09-09 18:06] LABS: C Reactive Protein* 11.8 mg/dL (0.5-1.0)
[2023-09-09 18:27] LABS: RBC Urine 0-2 (0-2); Squamous Epithelial Cell Urine Few (None-Few); WBC Urine 0-2 (0-5)
[2023-09-09 19:50] LABS: Hemoglobin* 11.9 gm/dL (12.0-16.0)
[2023-09-09] MEDS: PIPERACILLIN/TAZOBACTAM 3.375 GM in 0.9 % SODIUM CHLORIDE Mini-bag 100 ML IVPB (19:51)
[2023-09-09 20:20] LABS: Basophils Percent Auto 0.2 % (0.0-3.0); Eosinophils Percent Auto 0.6 % (0.0-7.0); Hematocrit 35.7 % (33.0-51.0); Immature Granulocytes Pct Auto 0.3 %; Lymphocytes Percent Auto 13.7 % (20-44); Mean Corpuscular HGB Conc 34 gm/dL (32-36); Mean Corpuscular Hemoglobin 29 pg (26-34); Mean Corpuscular Volume 88 fL (80-100); Monocytes Percent Auto 3.8 % (0.0-11.0); Neutrophils Percent Auto 81.4 % (42.0-72.0); Platelet Count* 210 K/uL (140-440); RDW Coefficient of Variation % 13.3 % (11.5-15.5); Red Blood Count 4.08 m/uL (4.00-5.20); White Blood Count* 11.58 K/uL (4.50-11.00)
[2023-09-09 20:21] LABS: Slide Review Reflex No
[2023-09-09 22:22] LABS: Lactate Dehydrogenase* 176 U/L (120-246)
[2023-09-12 14:39] LABS: Haptoglobin 280 mg/dL (30-200)
== END 2023-09-09 22:19 | disposition short-term general hospital (02) ==
PROVIDERS: Emergency Provider Emergency Medicine; PCP Family Medicine
DX: K65.9 Peritonitis, unspecified (principal)
CPT/HCPCS: 36415; 71275; 74177; 80048; 80076; 81001; 83010; 83605; 83615; 83690; 84145; 85018; 85025; 86140; 86618; 86850; 86900; 86901; 86922; 87040; 87493; 96365; 96375; 99284; 99285; J2270; J2405; J2543; J7030; Q9967

== ENCOUNTER 2023-12-11 11:52 | Outpatient (CLI) | payer BC, SELFPAY | END 2023-12-11 11:53 | disposition home or self-care (01) | PROVIDERS: PCP Family Medicine; Visit Provider Nurse Practitioner Family | DX: R19.7 Diarrhea, unspecified (principal) | CPT/HCPCS: 87493; 87505 ==

== ENCOUNTER 2023-12-12 16:23 | Emergency (ER) | payer BC, SELFPAY ==
[2023-12-12 16:31] VITALS: BP 148/92; PULSE 85; RESP 16; TEMP 37.7; O2SAT 95; BMI 28.3
--- NOTE | 2023-12-12 17:16 | ED.GENADULT ---
HPI - General Adult General Chief complaint: Fever Stated complaint: cancer pt with fever, diarrhea, colon infection Time Seen by Provider: 12/12/23 16:25 History of Present Illness HPI narrative: Patient is a 63-year-old woman with recent history of colorectal cancer status post resection. She has had what sounds like resection of peritoneal metastases as well as perineal chemotherapy. Patient will be undergoing outpatient therapy at [facility] and does have CT scan scheduled in 4 days. Patient was seen in the urgent care yesterday with diarrhea. Cultures were obtained and are still pending. Patient had full workup including CBC UA electrolytes. She is not neutropenic. She called [facility] earlier today and they asked her to come in for IV fluids as she does not feel well hydrated. I did have the opportunity to speak with the on-call oncologist and he would like her to be swab for COVID influenza and flu and treated with IV hydration. Related Data Home Medications ?Medication ?Instructions ?Recorded ?Confirmed loperamide 2 mg capsule 2 mg PO Q6H PRN 11/09/22 12/11/23 peg 400-propylene glycol (PF) 0.4 1 drp ophthalmic (eye) TID 11/09/22 12/11/23 %-0.3 % eye drops in a dropperette (Systane (PF)) simethicone 80 mg chewable tablet 80 mg PO BID-TID PRN 11/09/22 12/11/23 (Gas Relief 80 (simethicone)) acetaminophen 500 mg tablet 1,000 mg PO Q6H PRN 12/08/22 12/11/23 (Tylenol Extra Strength) cholecalciferol (vitamin D3) 25 25 mcg PO DAILY 09/04/23 12/11/23 mcg (1,000 unit) capsule (Vitamin D3) iron,carbonyl 65 mg-vitamin C 125 1 tab PO QDAY 12/11/23 12/11/23 mg tablet,delayed release (Vitron-C) Previous Rx's ?Medication ?Instructions ?Recorded penciclovir 1 % topical cream 1 applic topical Q2H 4 days #5 03/23/23 grams Allergies Allergy/AdvReac Type Severity Reaction Status Date / Time doxycycline Allergy Intermediate Rash Verified 12/11/23 11:02 codeine AdvReac Intermediate Nausea Verified 12/11/23 11:02 lisinopril AdvReac Unknown Cough Verified 12/11/23 11:02 acyclovir AdvReac Verified 12/11/23 11:02 Review of Systems Status of ROS: Reports: 10 or more systems reviewed and unremarkable except as noted in History and below PFSH [facility] Medical History Herpes labialis ?B00.1 - Herpesviral vesicular dermatitis (ICD-10) Colon cancer ?C18.9 - Malignant neoplasm of colon, unspecified (ICD-10) Hypertension ?I10 - Essential (primary) hypertension (ICD-10) Dyslipidemia ?E78.5 - Hyperlipidemia, unspecified (ICD-10) Class 1 obesity ?E66.9 - Obesity, unspecified (ICD-10) Chronic gastroesophageal reflux disease ?K21.9 - Gastro-esophageal reflux disease without esophagitis (ICD-10) Allergic rhinitis ?J30.9 - Allergic rhinitis, unspecified (ICD-10) Recurrent sinusitis ?J32.9 - Chronic sinusitis, unspecified (ICD-10) Polyp of colon (10/14/15) ?K63.5 - Polyp of colon (ICD-10) History of vitamin D deficiency ?Z86.39 - Personal history of other endocrine, nutritional and metabolic disease (ICD-10) History of coronary angiogram (09/28/17) ?Z98.890 - Other specified postprocedural states (ICD-10) History of cardiovascular stress test (09/14/17) ?Z92.89 - Personal history of other medical treatment (ICD-10) Surgical History H/O laparoscopy ?Z98.890 - Other specified postprocedural states (ICD-10) H/O partial resection of colon ?Z90.49 - Acquired absence of other specified parts of digestive tract (ICD-10) History of total hysterectomy with removal of both tubes and ovaries (2010) ?Z90.710 - Acquired absence of both cervix and uterus (ICD-10) ?Z90.722 - Acquired absence of ovaries, bilateral (ICD-10) ?Z90.79 - Acquired absence of other genital organ(s) (ICD-10) History of colonoscopy with polypectomy (10/11/15) ?Z98.890 - Other specified postprocedural states (ICD-10) ?Z86.010 - Personal history of colonic polyps (ICD-10) History of 2 sections (1988) ?Z98.891 - History of uterine scar from previous surgery (ICD-10) Family History Maternal Grandmother Stroke Diabetes Family/Other Prostate cancer Gastric cancer Father Heart disease Social History 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 Exercises 3-4 times per week-gym and walks, nonsmoker, no EtOH. What is your current living situation?: I presently have a place to live Problems where you live: no known problems Problems where you live details: N/A In the past 12 months, utilities in danger of being shut off: no In past 12 months, lack of transportation kept you from medical appts, meetings, work, or getting things needed for daily living: no In the past 12 mos, have been you worried that your food would run out before you had money to buy more?: never true In the past 12 mos, the food you bought just didn't last and you didn't have money to buy more?: never true Smoking Status: Never smoker Do you use any of these nicotine containing products: None Second hand tobacco smoke exposure: No How often do you have a drink containing alcohol: never How often do you have six or more drinks on one occasion: Never AUDIT-C Alcohol total score: 0 Non-prescribed substance use: denies use Caffeine: No How often does anyone, including family, friends and others, physically hurt you: never How often does anyone, including family, friends and others, insult or talk down to you: never How often does anyone, including family, friends and others, threaten you with harm: never How often does anyone, including family, friends and others, scream or curse at you: never service: No Exam Narrative: Exam Narrative: EXAM GENERAL: Patient appears comfortable and well. EYES: No scleral icterus. LYMPH: No supraclavicular or cervical lymphadenopathy. SKIN: Visible skin seen during exam normal or with benign process only. EXT: No dependent lower extremity pedal edema. HEART: Regular rate and rhythm with no murmurs, rubs, or gallops. LUNGS: Clear to auscultation bilaterally with no crackles or wheezes. ABD: Soft, non tender, non distended. Incisions healing well. PSYCH: Good eye contact, speech is not pressured. Const: Vital Signs, click to edit/add: Vital Signs - 24 hr 12/12/23 16:31 Temperature 99.9 F H Pulse Rate [Pulse Oximeter] 85 Respiratory Rate 16 Blood Pressure [Ri ght Upper Arm] 148/92 H Pulse Oximetry 95 Oxygen Delivery Me thod Room Air Course Course ED Course: I did review the case with the patient as well as with [facility]. Were all in agreement that would like to defer further laboratory studies and certainly further imaging at this time. We will be obtaining COVID flu and RSV testing and began hydration as we will monitor her temperature which is currently 99.9. Vital Signs Vital signs: Initial Vital Signs Temperature 99.9 F H 12/12/23 16:31 Temperature Source Temporal Artery Scan 12/12/23 16:31 Pulse Rate 85 12/12/23 16:31 Pulse Rhythm Regular 12/12/23 16:31 Respiratory Rate 16 12/12/23 16:31 Blood Pressure 148/92 H 12/12/23 16:31 Blood Pressure Mean 110 H 12/12/23 16:31 Blood Pressure Position Sitting 12/12/23 16:31 Pulse Oximetry 95 12/12/23 16:31 Oxygen Delivery Method Room Air 12/12/23 16:31 Vital Signs Temperature 99.9 F H 12/12/23 16:31 Pulse Rate 85 12/12/23 16:31 Respiratory Rate 16 12/12/23 16:31 Blood Pressure 148/92 H 12/12/23 16:31 Pulse Oximetry 95 12/12/23 16:31 Oxygen Delivery Method Room Air 12/12/23 16:31 Temperature 99.9 F H 12/12/23 16:31 Pulse Rate 85 12/12/23 16:31 Respiratory Rate 16 12/12/23 16:31 Blood Pressure 148/92 H 12/12/23 16:31 Pulse Oximetry 95 12/12/23 16:31 Oxygen Delivery Method Room Air 12/12/23 16:31 Medications Administered Medications: Generic Name Dose Route Start Last Admin Trade Name Freq PRN Reason Stop Dose Admin Sodium Chloride 500 mls @ 1,000 mls/hr 12/12/23 18:04 12/12/23 18:13 0.9 % Sodium Chloride 500 Ml IV 12/12/23 18:33 1,000 mls/hr .Q30M ONE Administration Discontinued Medications Generic Name Dose Route Start Last Admin Trade Name Esau PRN Reason Stop Dose Admin Sodium Chloride 1,000 mls @ 1,000 mls/hr 12/12/23 16:55 12/12/23 18:00 0.9 % Sodium Chloride 1000 Ml IV 12/12/23 17:54 Infused .Q1H VIDA Infusion Medical Decision Making MDM Narrative Medical decision making narrative: Patient is a 63-year-old woman who has history of metastatic colorectal cancer presents with low-grade fever. She had a full workup at urgent care yesterday. Her temperature is 99.9? today and workup yesterday was largely unremarkable. Patient has no other localizing symptoms. Her COVID influenza and RSV testing were all negative. I did visit with the oncologist restoration officer at [facility] in the did recommend IV hydration viral testing as noted above and reassurance with outpatient follow-up. I did offer repeat testing with the form of up blood work in CT scan with both she and the oncologist declined. This time will provide reassurance close outpatient follow-up. She is being seen in 3 days in [facility] for a CT and further evaluation. Differential diagnosis includes but not limited to all causes of fever such as autoimmune disorder cancer infection. She did have diarrhea when she was seen in urgent care however those symptoms have largely resolved. Lab Data Labs: Lab Results 12/12/23 [place]/Units 17:13 SARS-CoV-2 (PCR) Negative SARS-CoV-2 (Negative) Influenza Type A (PCR) Negative PCR FLU A (Negative) Influenza Type B (PCR) Negative PCR FLU B (Negative) RSV (PCR) Negative PCR RSV (Negative) Discharge Plan Discharge Clinical Impression: Fever Patient Disposition: Home, Self-Care Condition: Stable Instructions: Fever in Adults (ED) Additional Instructions: Continue current treatment Follow-up at [facility] as directed. Activity Level: No Restrictions Discharge Diet: Regular Prescriptions: No Action acetaminophen [Tylenol Extra Strength] 500 mg tablet 1,000 mg PO Q6H PRN Vitron-C 65 mg iron- 125 mg tablet,delayed release (DR/EC) 1 tab PO QDAY loperamide 2 mg capsule 2 mg PO Q6H PRN Systane (PF) 0.4-0.3 % dropperette 1 drp ophthalmic (eye) TID simethicone [Gas Relief 80 (simethicone)] 80 mg tablet,chewable 80 mg PO BID-TID PRN cholecalciferol (vitamin D3) [Vitamin D3] 25 mcg (1,000 unit) capsule 25 mcg PO DAILY penciclovir 1 % cream 1 applic topical Q2H 4 Days Qty: 5 1RF Rx Instructions: Apply every 2 hours while awake for 4 days, starting at first sign of oral blister lesion Follow Up/Referrals: Charla Carrington MD [Primary Care Provider] - Stand Alone [facility] Info Inst[facility]
[2023-12-12] MEDS: 0.9 % SODIUM CHLORIDE 1000 ml 1,000 ML IV (17:20)
[2023-12-12 18:04] LABS: PCR FLU A Negative PCR FLU A (Negative); PCR FLU B Negative PCR FLU B (Negative); PCR RSV Negative PCR RSV (Negative); SARS PCR* Negative SARS-CoV-2 (Negative)
[2023-12-12] MEDS: 0.9 % SODIUM CHLORIDE 500 ML 500 ML 1000 ML IV (18:13)
== END 2023-12-12 18:54 | disposition home or self-care (01) ==
PROVIDERS: Emergency Provider Internal Medicine; PCP Family Medicine
DX: R50.9 Fever, unspecified (principal)
CPT/HCPCS: 87631; 96360; 99283; 99284; J7030

== ENCOUNTER 2025-02-22 15:38 | Emergency (ER) | payer BC, SELFPAY ==
--- OUTSIDE RECORDS SUMMARY | 2025-01-11 11:00 | XMS_ITS | Encounter Summary ---
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 [address] [place] [address] Phone: tel: fax: Department of Oncology in [place], [place] [address] [place] [address] Phone: tel: Referral ID Status Reason Start Date Expiration Date V isits Requested Visits Authorized [id number] Authorized 09/06/2024 09/06/2025 99 99 Encounter Details Date Type Department Care Team (Late st Contact Info) Description 01/11/2025 11:00 AM CDT Lab Department of Oncology in [place], [place] [address] [place] [phone] Preet Segura M.D. [address] [place] [id number] Malignant Neoplasm Of Cecum (HCC) (Primary Dx); Secondary Malignant Neoplasm Peritoneum (HCC) Social History Tobacco Use Types Packs/Day Years Used Date Smoking Tobacco: Never Passive Smoke Exposure: Never Smokeless Tobacco: Never Alcohol Use Standard Drinks/Week Comments Not Currently 0 (1 standard drink = 0.6 oz pur e alcohol) [facility] Utilities Answer Date Recorded In the past 12 months has [facility] [employer], gas, oil, or water [employer] threatened to shut off services in your home? No 2024 Humiliation, Afraid, Rape, and Kick questionnair e Answer Date Recorded Within the last year, have y ou been afraid of your partner or ex-partner? No 2024 Within the last year, have y ou been humiliated or emotionally abused in other ways by your partner or ex-partner? No Within the last year, have y ou been kicked, hit, slapped, or otherwise physically hurt by your partner or ex-partner? No 2024 Within the last year, have y ou been raped or forced to have any kind of sexual activity by your partner or ex-partner? No 2024 Hunger Vital Sign Answer Date Recorded Within the past 12 months, y ou worried that your food would run out before you got the money to buy more. Never true 04/14/20 24 Within the past 12 months, t he food you bought just didn't last and you didn't have money to get more. Never true 2024 PRAPARE - Transportation Answer Date Re corded In the past 12 months, has l ack of transportation kept you from medical appointments or from getting medications? No 03/27 In the past 12 months, has l ack of transportation kept you from meetings, work, or from getting things needed for daily living? No 2024 Housing Stability Answer Date Recorded What is your living situation today? I have a [facility] place to live 2024 Education Answer Date Recorded What is the highest level of school you have completed or the highest degree you have received? Associate degree: academic program 07/13/2022 Comments No Sex and Gender Information Value Date Recorded Sex Assigned at Female 07/13/2022 10:34 AM CDT Legal Sex Female 2:44 PM CDT Gender Identity Female 07/13/2022 10:34 AM CDT Sexual Orientation Straight 07/13/2022 10 :34 AM CDT documented as of this encounter Plan of Treatment Upcoming Encounters Date Type Department Care Team (Late st Contact Info) Description 02/23/2025 6:45 AM CDT Lab Department of Oncology in [address] [phone] Kadeem Marshall P.A.-C., M.S. [address] [place] [phone] 02/23/2025 9:20 AM CDT Office Visit Department of Oncology in [address] [phone] Kadeem Marshall P.A.-C., M.S. [address] [place] [phone] 02/23/2025 10:00 AM CDT Infusion Department of Oncology in [address] [phone] Kadeem Marshall P.A.-C., M.S. [address] [place] [phone] 03/07/2025 10:20 AM [employer] Appointment Department of Laboratory Medicine in [address] [phone] Kadeem Marshall P.A.-C., M.S. [address] [place] [phone] 03/08/2025 8:00 AM [employer] Office Visit Department of Oncology in [address] [phone] Kadeem Marshall P.A.-C., M.S. [address] [place] [address] 03/08/2025 8:45 AM [employer] Infusion Department of Oncology in [place], [place] [address] [place] [address] Kadeem Marshall P.A.-C., M.S. 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 LAB BLOOD ADD-ON Final Result [facility] [address] [place] [address], [facility] DTL Formerly named [facility] [address] [place] [address] * Comprehensive Metabolic Panel (01/11/2025 11:29 AM CDT) Potassium, S 4.4 3.6 - 5.2 mmol/L 01/11/2025 1:41 PM CDT DTL Sodium, S 141 135 - 145 mmol/L 01/11/2025 1:41 PM CDT DTL Chloride, S 104 98 - 107 mmol/L 01/11/2025 1:41 PM CDT DTL Bicarbonate, S 24 22 - 29 mmol/L 01/11/2025 1:41 PM CDT DTL Anion Gap 13 7 - 15 01/11/2025 1:41 PM CDT DTL BUN (Blood Urea Nitrogen), S 13 6 - 21 mg/dL 01/11/2025 1:41 PM CDT DTL Creatinine 0.64 0.59 - 1.04 mg/dL 01/11/2025 1:41 PM CDT DTL Estimated GFR (eGFR) >90 >=60 mL/min/BS A 01/11/2025 1:41 PM CDT DTL Comment: Estimated GFR calculated using the 2020 CKD_EPI creatinine equation. Calcium, Total, S 9.6 8.8 - 10.2 mg/dL 01/11/2025 1:41 PM CDT DTL Glucose, S 89 70 - 140 mg/dL 01/11/2025 1:41 PM CDT DTL Protein, Total, S 6.3 6.3 - 7.9 g/dL 01/11/2025 1:41 PM CDT DTL Albumin, S 4.7 3.5 - 5.0 g/dL 01/11/2025 1:41 PM CDT DTL Aspartate Aminotransferase (AST), S 20 8 - 43 U/L 01/11/2025 1:41 PM CDT DTL Alkaline Phosphatase, S 96 35 - 104 U/L 01/11/2025 1:41 PM CDT DTL Alanine Aminotransferase (ALT), S 18 7 - 45 U/L 01/11/2025 1:41 PM CDT DTL Bilirubin, Total, S 0.3 0.0 - 1.2 mg/dL 01/11/2025 1:41 PM CDT DTL Blood (Blood, Venous) 01/11/2025 11:29 AM CDT 01/11/2025 11:55 AM CDT us Preet Segura M.D. LAB BLOOD ADD-ON Final Result [facility] [address] [place] [address], [facility] [address] [phone] * (ABNORMAL) CBC with Differential, Blood (01/11/2025 11:29 AM CDT) Hemoglobin 11.7 11.6 - 15.0 g/dL 01/11/2025 12:02 PM CDT DTL Hematocrit 36.2 35.5 - 44.9 % 01/11/2025 12:02 PM CDT DTL Erythrocytes 3.85(L) 3.92 - 5.13 x10(12)/L 01/11/2025 12:02 PM CDT DTL MCV 94.0 78.2 - 97.9 fL 01/11/2025 12:02 PM CDT DTL RBC Distrib Width 14.1 12.2 - 16.1 % 01/11/2025 12:02 PM CDT DTL Platelet Count 171 157 - 371 x10(9)/L 01/11/2025 12:02 PM CDT DTL Leukocytes 3.8 3.4 - 9.6 x10(9)/L 01/11/2025 12:02 PM CDT DTL Neutrophils 2.34 1.56 - 6.45 x10(9)/L 01/11/2025 12:02 PM CDT DHPM Lymphocytes 1.15 0.95 - 3.07 x10(9)/L 01/11/2025 12:02 PM CDT DTL Monocytes 0.28 0.26 - 0.81 x10(9)/L 01/11/2025 12:02 PM CDT DTL Eosinophils 0.05 0.03 - 0.48 x10(9)/L 01/11/2025 12:02 PM CDT DTL Basophils <0.03 0.01 - 0.08 x10(9)/L 01/11/2025 12:02 PM CDT DTL Blood (Blood, Venous) 01/11/2025 11:29 AM CDT 01/11/2025 11:46 AM CDT Preet Segura M.D. LAB BLOOD ADD-ON Final Result Performing Organization Address City/[facility]/ZIP Co de Phone Number [facility] [address] [place] [address] * Magnesium (01/11/2025 11:29 AM CDT) Pathologist [facility] Magnesium, S 1.8 1.7 - 2.3 mg/dL 01/11/2025 1:41 PM CDT DTL Blood (Blood, Venous) 01/11/2025 11:29 AM CDT 01/11/2025 11:55 AM CDT Preet Segura M.D. LAB BLOOD ADD-ON Final Result [facility] [address] [place] [address] * S-TSH (Thyroid-Stimulating Hormone - Sensitive) (01/11/2025 11:29 AM CDT) TSH, Sensitive 2.0 0.3 - 4.2 mIU/L 01/11/2025 1:41 PM CDT DTL Blood (Blood, Venous) 01/11/2025 11:29 AM CDT 01/11/2025 11:55 AM CDT Preet Segura M.D. LAB BLOOD ADD-ON Final Result Performing Organization Address [facility] Co de Phone Number [facility] [address] [place] [address], [place] DTL [facility] [address] [place] [address] * Zinc (01/11/2025 11:29 AM CDT) [facility] Signature Zinc, S 67 60 - 106 mcg/dL 01/11/2025 3:54 PM CDT [facility] Comment: ----ADDITIONAL INFORMATION---- This test was developed and its performance characteristics determined by [facility] in a manner consistent with CLIA requirements. This test has not been cleared or approved by the U.S. Food and Drug Administration. Blood (Blood, Venous) 01/11/2025 11:29 AM CDT 01/11/2025 1:56 PM CDT us Preet Segura M.D. LAB BLOOD NON ADD-ON Final Resul t Performing Organization Address [facility] Co de Phone Number [facility] [address] [place] [address] [facility] [address] [place] [address] 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 5 mL (500 units) of Heparin 100 units/mL to each port/lumen. When IVAD not accessed or infusing: When no infusion to maintain patency flush every 28 days following NaCL flush. 5 mL (500 units) of Heparin 100 units/mL to each port/lumen.Indications:Maligna nt Neoplasm Of Cecum (HCC) Given 01/11/2025 11:15 AM CDT 500 Units sodium chloride 0.9 % injection 20-40 mL 20-40 mL, intra-catheter, As needed, line care, Starting on Felisha 01/11/25 at 1113, When IVAD accessed and infusing: Flush prior to blood sampling, post blood transfusion or post blood sampling. 20 mL to each port/lumen.Indications:Maligna nt Neoplasm Of Cecum (HCC) Given 01/11/2025 11:15 AM CDT 20 mL documented in this encounter Additional Health Concerns Infection Onset Date Last Indicated Resolved Time Protective Environment 06/02/2024 06/02/2024 documented as of this encounter Care Teams Ton Cylinder Inspector Relationship Specialty Start Date End Date Elsewhere, Pcp PCP - General Internal Medicine 03/08/24 documented as of this encounter
--- OUTSIDE RECORDS SUMMARY | 2025-01-11 13:15 | XMS_ITS | Encounter Summary ---
Author Organization [facility] Address [address] [place] [address] Care Team Providers Care Outboard Technician Name Role Phone Elsewhere, Pcp Primary Care Provider Unavailabl e Reason for Referral * Outpatient (Routine) - Pending Review Specialty Diagnoses / Procedures Referred By Edgardo banks Referred To Contact Diagnoses Malignant Neoplasm Of Cecum (HCC) Procedures ONC Pump Disconnect Ralph Corado M.B.B.S., M.D. 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 [address] [place] [address] Phone: tel: fax: Department of Oncology in [place], [place] [address] [place] [address] Phone: tel: Referral ID Status Reason Start Date Expiration Date V isits Requested Visits Authorized [id number] Authorized 09/06/2024 09/06/2025 99 99 Encounter Details Date Type Department Care Team (Late st Contact Info) Description 01/11/2025 1:15 PM CDT Infusion Department of Oncology in [place], [place] [address] [place] [phone] Preet Segura M.D. [address], [place] [phone] Secondary Malignant Neoplasm Peritoneum (HCC) (Primary Dx); Malignant Neoplasm Of Cecum (HCC) Social History Tobacco Use Types Packs/Day Years Used Date Smoking Tobacco: Never Passive Smoke Exposure: Never Smokeless Tobacco: Never Alcohol Use Standard Drinks/Week Comments Not Currently 0 (1 standard drink = 0.6 oz pur e alcohol) [facility] Utilities Answer Date Recorded In the past 12 months has [employer], gas, oil, or water [employer] threatened to shut off services in your [...] your living situation today? I have a [facility] place to live 2024 Education Answer Date [...] AM CDT documented as of this encounter Last Filed Vital Signs Vital Sign Reading Time Taken Comments Blood Pressure 151/75 01/11/2025 1:00 PM CDT Pulse 82 01/11/2025 1:00 PM CDT Temperature 36.8 C (98.2 F) 01/11/2025 1:00 PM CDT Respiratory Rate 12 01/11/2025 1:00 PM CDT Oxygen Saturation - - Inhaled Oxygen Concentration - - Weight 68.7 kg (151 lb 7.3 oz) 01/11/2025 1:00 P M CDT Height - - Body Mass Index 26.84 11/30/2024 1:03 PM CDT documented in this encounter Plan of Treatment Upcoming Encounters Date Type Department Care Team (Late st Contact Info) Description 02/23/2025 6:45 AM CDT Lab Department of Oncology in [place], [place] [address] [place] [address] Kadeem Marshall P.A.-C., M.S. 200 [place] [address] 02/23/2025 9:20 AM CDT Office Visit Department of Oncology in [address] [phone] Kadeem Marshall P.A.-C., M.S. [address] [place] [phone] 02/23/2025 10:00 AM CDT Infusion Department of Oncology in [address] [phone] Kadeem Marshall P.A.-C., M.S. [address] [place] [phone] 03/07/2025 10:20 AM BLACKSMITH APPRENTICE Appointment Department of Laboratory Medicine in [address] [phone] Kadeem Marshall P.A.-C., M.S. [address] [place] [phone] 03/08/2025 8:00 AM BLACKSMITH APPRENTICE Office Visit Department of Oncology in [address] [phone] Kadeem Marshall P.A.-C., M.S. [address] [place] [phone] 03/08/2025 8:45 AM BLACKSMITH APPRENTICE Infusion Department of Oncology in [address] [phone] Kadeem Marshall P.A.-C., M.S. [address] [place] [phone] Scheduled Orders Name Type Priority Associated Diagnoses Orde r Schedule ONC Pump Disconnect Procedures Routine Malignant Neoplasm Of Cecum (HCC) Expected: 01/13/2025, Expires: 04/12/2026 documented as of this encounter Visit Diagnoses Diagnosis Secondary Malignant Neoplasm Peritoneum (HCC)- Primary Malignant Neoplasm Of Cecum (HCC) documented in this encounter Administered Medications Inactive Administered Medications - up to 3 most recent administrations Medication Order MAR Action Action Date Dose Rate Site atropine injection 0.25 mg 0.25 mg, subcutaneous, Once, On Felisha 01/11/25 at 1500, For 1 dose, 1/[address] irinotecan infusionIndications:Mal ignant Neoplasm Of Cecum (HCC),Secondary Malignant Neoplasm Peritoneum (HCC) Given 01/11/2025 4:25 PM CDT 0.25 mg Left Upper Arm (Back) atropine injection 0.25 mg 0.25 mg, subcutaneous, Once, On Felisha 01/11/25 at 1445, For 1 dose, Give at start of IrinotecanIndications:M alignant Neoplasm Of Cecum (HCC),Secondary Malignant Neoplasm Peritoneum (HCC) Given 01/11/2025 3:31 PM CDT 0.25 mg Right Upper Arm (Back) fluorouraciL 3,000 mg in NaCl 0.9% 92 mL IVPB (AdruciL) 3,000 mg (rounded from 3,240 mg = 1,800 mg/m2 1.8 m2 Treatment Plan BSA from Measured weight), intravenous, at 2 mL/hr, Administer over 46 Hours, over 46 hours, First dose on Felisha 01/11/25 at 1630, For 1 dose, Continuous infusion over 46 hours immediately following Fluorouracil bolus. Dose reflects TOTAL CALCULATED DOSE to be administered via continuous infusion over the specified length of treatment.Indications:M alignant Neoplasm Of Cecum (HCC),Secondary Malignant Neoplasm Peritoneum (HCC) Given 01/11/2025 5:09 PM CDT 3,000 mg 2 mL/hr irinotecan 200 mg in NaCl 0.9% 558 mL IVPB (Camptosar) 200 mg (rounded from 194.4 mg = 108 mg/m2 1.8 m2 Treatment Plan BSA from Measured weight), intravenous, at 372 mL/hr, Administer over 90 Minutes, Once, On Felisha 01/11/25 at 1500, For 1 dose, May be given via y-site with leucovorin. Do NOT refrigerate. PROTECT FROM LIGHT.Indications:Malig nant Neoplasm Of Cecum (HCC),Secondary Malignant Neoplasm Peritoneum (HCC) New Bag 01/11/2025 3:34 PM CDT 200 mg 372 mL/hr leucovorin 100 mg in NaCl 0.9% 115 mL IVPB 100 mg, intravenous, at 76.7 mL/hr, Administer over 90 Minutes, Once, On Felisha 01/11/25 at 1500, For 1 dose, May be given y-site with irinotecanIndications:M alignant Neoplasm Of Cecum (HCC),Secondary Malignant Neoplasm Peritoneum (HCC) New Bag 01/11/2025 3:34 PM CDT 100 mg 76.7 mL/hr LORazepam tablet 0.5 mg (Ativan) 0.5 mg, oral, Once, On Felisha 01/11/25 at 1430, For 1 dose, At treatment start time for nauseaIndications:Malig nant Neoplasm Of Cecum (HCC),Secondary Malignant Neoplasm Peritoneum (HCC) Given 01/11/2025 2:26 PM CDT 0.5 mg NaCl 0.9 % bolus 1,000 mL 1,000 mL, intravenous, at 1,000 mL/hr, Administer over 1 Hours, Once, On Felisha 01/11/25 at 1430, For 1 doseIndications:Maligna nt Neoplasm Of Cecum (HCC),Secondary Malignant Neoplasm Peritoneum (HCC) New Bag 01/11/2025 2:28 PM CDT 1,000 mL 1000 mL/hr sodium chloride 0.9 % injection 10-20 mL 10-20 mL, intra-catheter, As needed, line care, Starting on Felisha 01/11/25 at 1436, When IVAD accessed and infusing: Flush prior to and following infusion, between multiple consecutive infusions. 10 mL to each port/lumen.Indications: Malignant Neoplasm Of Cecum (HCC) Given 01/11/2025 5:09 PM CDT 10 mL documented in this encounter Additional Health Concerns Infection Onset Date Last Indicated Resolved Time Protective Environment 06/02/2024 06/02/2024 documented as of this encounter Care Teams Outboard Technician Relationship Specialty Start Date End Date Elsewhere, Pcp PCP - General Internal Medicine 03/08/24 documented as of this encounter
--- OUTSIDE RECORDS SUMMARY | 2025-01-13 15:00 | XMS_ITS | Encounter Summary ---
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 [address] [place] [address] Phone: tel: fax: Department of Oncology in [place], [place] [address] [place] [address] Phone: tel: Referral ID Status Reason Start Date Expiration Date V isits Requested Visits Authorized [id number] Authorized 09/06/2024 09/06/2025 99 99 Encounter Details Date Type Department Care Team (Late st Contact Info) Description 01/13/2025 3:00 PM CDT Infusion Department of Infusion Therapy in [place], [place] [address] [place] [phone] Preet Segura M.D. [address] [place] [address] Secondary Malignant Neoplasm Peritoneum (HCC) (Primary Dx); Malignant Neoplasm Of Cecum (HCC) Social History Tobacco Use Types Packs/Day Years Used Date Smoking Tobacco: Never Passive Smoke Exposure: Never Smokeless Tobacco: Never Alcohol Use Standard Drinks/Week Comments Not Currently 0 (1 standard drink = 0.6 oz pur e alcohol) [facility] Utilities Answer Date Recorded In the past 12 months has [facility] [employer], gas, oil, or water [employer] threatened to shut off services in your [...] money to buy more. Never true 04/14/20 Within the past 12 months, t he [...] your living situation today? I have a [facility] place to live 2024 Education Answer [...] Sign Reading Time Taken Comments Blood Pressure 124/75 01/13/2025 3:23 PM CDT Pulse 78 01/13/2025 3:10 PM CDT Temperature 36.8 C (98.2 F) 01/13/2025 3:10 PM CDT Respiratory Rate 16 01/13/2025 3:10 PM CDT Oxygen Saturation - - Inhaled Oxygen Concentration - - Weight - - Height - - Body Mass Index - - documented in this encounter Nursing Notes * Dionne Perkins R.N. - 01/13/2025 3:25 PM CDT Patient presented to [facility] to have chemo pump disconnected and to receive IV fluids. She declined IV fluids, stating that she was getting adequate food and fluid intake and didn't feel she needed the fluids. She denied dizziness or lightheadedness, VS were WNL. documented in this encounter Plan of Treatment Upcoming Encounters Date Type Department Care Team (Late st Contact Info) Description 02/23/2025 6:45 AM CDT Lab Department of Oncology in [place], [place] [address] [place] [phone] Kadeem Marshall P.A.-C., M.S. [address] [place] [phone] 02/23/2025 9:20 AM CDT Office Visit Department of Oncology in [place], [place] [address] [place] [phone] Kadeem Marshall P.A.-C., M.S. [address] [place] [phone] 02/23/2025 10:00 AM CDT Infusion Department of Oncology in [place], [place] [address] [place] [phone] Kadeem Marshall P.A.-C., M.S. [address] [place] [phone] 03/07/2025 10:20 AM MINE DEVELOPMENT ENGINEER Appointment Department of Laboratory Medicine in [address] [phone] Kadeem Marshall P.A.-C., M.S. [address] [place] [phone] 03/08/2025 8:00 AM MINE DEVELOPMENT ENGINEER Office Visit Department of Oncology in [address] [phone] Kadeem Marshall P.A.-C., M.S. [address] [place] [phone] 03/08/2025 8:45 AM MINE DEVELOPMENT ENGINEER Infusion Department of Oncology in [address] [phone] Kadeem Marshall P.A.-C., M.S. 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 5 mL (500 units) of Heparin 100 units/mL to each port/lumen. When IVAD not accessed or infusing: When no infusion to maintain patency flush every 28 days following NaCL flush. 5 mL (500 units) of Heparin 100 units/mL to each port/lumen.Indications:Malignan t Neoplasm Of Cecum (HCC) Given 01/13/2025 3:22 PM CDT 500 Units sodium chloride 0.9 % injection 10-20 mL 10-20 mL, intra-catheter, As needed, line care, Starting on 01/13/25 at 1503, When IVAD accessed and infusing: Flush prior to and following infusion, between multiple consecutive infusions. 10 mL to each port/lumen.Indications:Malignan t Neoplasm Of Cecum (HCC) Given 01/13/2025 3:22 PM CDT 10 mL documented in this encounter Additional Health Concerns Infection Onset Date Last Indicated Resolved Time Protective Environment 06/02/2024 06/02/2024 documented as of this encounter Care Teams Environmental Research Project Manager Relationship Specialty Start Date End Date Elsewhere, Pcp PCP - General Internal Medicine 03/08/24 documented as of this encounter
--- OUTSIDE RECORDS SUMMARY | 2025-01-25 08:00 | XMS_ITS | Encounter Summary ---
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 [address] [place] [address] Phone: tel: fax: Department of Oncology in [place], [place] [address] [place] [address] Phone: tel: Referral ID Status Reason Start Date Expiration Date V isits Requested Visits Authorized [id number] Authorized 09/06/2024 09/06/2025 99 99 Encounter Details Date Type Department Care Team (Late st Contact Info) Description 01/25/2025 8:00 AM CDT Lab Department of Oncology in [place], [place] [address] [place] [phone] Kadeem Marshall P.A.-C., M.S. [address] [place] [address] Malignant Neoplasm Of Cecum (HCC) (Primary Dx); Secondary Malignant Neoplasm Peritoneum (HCC) Social History Tobacco Use Types Packs/Day Years Used Date Smoking Tobacco: Never Passive Smoke Exposure: Never Smokeless Tobacco: Never Alcohol Use Standard Drinks/Week Comments Not Currently 0 (1 standard drink = 0.6 oz pur e alcohol) [facility] Utilities Answer Date Recorded In the past 12 months has e [employer], gas, oil, or water [employer] threatened to shut off services in your [...] your living situation today? I have a [facility] place to live 2024 Education Answer [...] AM CDT Lab Department of Oncology in [address] [phone] Kadeem Marshall P.A.-C., M.S. [address] [place] [phone] 02/23/2025 9:20 AM CDT Office Visit Department of Oncology in [address] [phone] Kadeem Marshall P.A.-C., M.S. [address] [place] [phone] 02/23/2025 10:00 AM CDT Infusion Department of Oncology in [address] [phone] Kadeem Marshall P.A.-C., M.S. [address] [place] [phone] 03/07/2025 10:20 AM CLERICAL AIDE Appointment Department of Laboratory Medicine in [address] [phone] Kadeem Marshall P.A.-C., M.S. [address] [place] [phone] 03/08/2025 8:00 AM CLERICAL AIDE Office Visit Department of Oncology in [address] [phone] Kadeem Marshall P.A.-C., M.S. [address] [place] [phone] 03/08/2025 8:45 AM CLERICAL AIDE Infusion Department of Oncology in [place], [place] [address] [place] [phone] Kadeem Marshall P.A.-C., M.S. [address] [place] [phone] documented as of this encounter Procedures Procedure [...] M.S. LAB BLOOD ADD-ON Fi nal Result [facility] [address] [place] [address], [facility] DTL [facility] [address] [place] [address] * (ABNORMAL) Comprehensive Metabolic Panel (01/25/2025 8:38 [...] M.S. LAB BLOOD ADD-ON Fi nal Result [facility] [address] [place] [address], [facility] [place][note 2] [address] [place] [address] * (ABNORMAL) CBC with Differential, Blood (01/25/2025 [...] ADD-ON Fi nal Result Performing Organization Address City/[facility]/ZIP Co de Phone Number [facility] [address] [facility] [place][note 2] [address] [place] [address] * Magnesium (01/25/2025 8:38 AM CDT) Magnesium, S 1.9 1.7 - 2.3 mg/dL 01/25/2025 9:40 AM CDT DTL Blood (Blood, Venous) 01/25/2025 8:38 AM CDT 01/25/2025 8:44 AM CDT us Kadeem Marshall P.A.-C., M.S. LAB BLOOD ADD-ON Fi nal Result Performing Organization Address City/[facility]/ZIP Co de Phone Number [facility] [address] DTL [facility] [address] [place] [address] * S-TSH (Thyroid-Stimulating Hormone - Sensitive) (01/25/2025 8:38 AM CDT) TSH, Sensitive 2.6 0.3 - 4.2 mIU/L 01/25/2025 9:40 AM CDT DT Blood (Blood, Venous) 01/25/2025 8:38 AM CDT 01/25/2025 8:44 AM CDT Kadeem Marshall P.A.-C., MAlpeshS. LAB BLOOD ADD-ON Fi nal Result Performing Organization Address City/[facility]/ZIP Co de Phone Number [facility] [address] [place] [address], [facility] [place][note 2] [address] [place] [address] * Zinc (01/25/2025 8:38 AM CDT) Zinc, S 63 60 - 106 mcg/dL 01/26/2025 10:01 AM CDT [facility] Comment: ----ADDITIONAL INFORMATION---- This test was developed and its performance characteristics determined by [facility] in a manner consistent with CLIA requirements. This test has not been cleared or approved by the U.S. Food and Drug Administration. Blood (Blood, Venous) 01/25/2025 8:38 AM CDT 01/25/2025 11:10 AM CDT us Kadeem Marshall P.A.-C., M.S. LAB BLOOD NON ADD-O N Final Result [facility] [address] [place] [address] [facility] [address] 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
--- OUTSIDE RECORDS SUMMARY | 2025-01-25 11:00 | XMS_ITS | Encounter Summary ---
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 [address] [place] [address] Phone: tel: fax: Department of Oncology in [place], [place] [address] [place] [address] Phone: tel: Referral ID Status Reason Start Date Expiration Date V isits Requested Visits Authorized [id number] Authorized 09/06/2024 09/06/2025 99 99 Encounter Details Date Type Department Care Team (Late st Contact Info) Description 01/25/2025 11:00 AM CDT Office Visit Department of Oncology in [place], [place] [address] [place] [phone] Shahana Castillo M.D. [address] [place] [address] Malignant Neoplasm Of Cecum (HCC) (Primary Dx); Secondary Malignant Neoplasm Peritoneum (HCC); Secondary Malignant Neoplasm Liver (HCC) Social History Tobacco Use Types Packs/Day Years Used Date Smoking Tobacco: Never Passive Smoke Exposure: Never Smokeless Tobacco: Never Alcohol Use Standard Drinks/Week Comments Not Currently 0 (1 standard drink = 0.6 oz pur e alcohol) [facility] Utilities Answer Date Recorded In the past 12 months has e [employer], gas, oil, or water [employer] threatened to shut off services in your [...] your living situation today? I have a [facility] place to live 2024 Education Answer Date [...] cancers. Patient is status post remote . [place] pathology review Colon, cecum, mass, biopsy ([id number]; 07/03/2022): Invasive moderately- adenocarcinoma, pMMR. 07/30/2022 Surgery and Procedures ROBOTIC-ASSISTED COLECTOMY RIGHT WITH ANASTOMOSIS. Histologic Type: Adenocarcinoma Histologic Grade: G2 pT Category: pT3 pN Category: pN2a 07/30/2022 Genetic Testing and Tumor Genotyping 07/30/22 [place] CRC Panel CINDY/PORSHA wt NAIF 10/21/2022 Clinical [...] fully negative panel); [facility]Next- Cancer panel through [facility]. 2024 Surgery and Procedures percutaneous microwave [...] fully negative panel); [facility]Next- Cancer panel through [facility]. 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 She also cares for her 90-year-old mother [...] is not jaundiced. Findings: Lesion present. Comments: [place], indurated, nontender skin lesion (approx 1 cm [...] AM CDT Lab Department of Oncology in [address] [phone] Kadeem Marshall P.A.-C., M.S. [address] [place] [phone] 02/23/2025 9:20 AM CDT Office Visit Department of Oncology in [address] [phone] Kadeem Marshall P.A.-C., M.S. [address] [place] [phone] 02/23/2025 10:00 AM CDT Infusion Department of Oncology in [address] [address] Kadeem Marshall P.A.-C., M.S. [address] [place] [phone] 03/07/2025 10:20 AM OUTDOOR ADVERTISING LEASING AGENT Appointment Department of Laboratory Medicine in [address] [phone] Kadeem Marshall P.A.-C., M.S. [address] [place] [phone] 03/08/2025 8:00 AM OUTDOOR ADVERTISING LEASING AGENT Office Visit Department of Oncology in [address] [phone] Kadeem Marshall P.A.-C., M.S. [address] [place] [phone] 03/08/2025 8:45 AM OUTDOOR ADVERTISING LEASING AGENT Infusion Department of Oncology in [place], [place] [address] [place] [address] Kadeem Marshall P.A.-C., M.S. 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
--- OUTSIDE RECORDS SUMMARY | 2025-01-25 13:00 | XMS_ITS | Encounter Summary ---
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 [address] [place] [address] Phone: tel: fax: 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 [address] [place] [address] Phone: tel: fax: Department of Oncology in [place], [place] [address] [place] [address] Phone: tel: Referral ID Status Reason Start Date Expiration Date V isits Requested Visits Authorized [id number] Authorized 09/06/2024 09/06/2025 99 99 Encounter Details Date Type Department Care Team (Late st Contact Info) Description 01/25/2025 1:00 PM CDT Infusion Department of Oncology in [place], [place] [address] [place] [address] Kadeem Marshall P.A.-C., M.S. [address] [place] [phone] Malignant Neoplasm Of Cecum (HCC) (Primary Dx); Secondary Malignant Neoplasm Peritoneum (HCC) Social History Tobacco Use Types Packs/Day Years Used Date Smoking Tobacco: Never Passive Smoke Exposure: Never Smokeless Tobacco: Never Alcohol Use Standard Drinks/Week Comments Not Currently 0 (1 standard drink = 0.6 oz pur e alcohol) [facility] Utilities Answer Date Recorded In the past 12 months has e [employer], gas, oil, or water [employer] threatened to shut off services in your [...] AM CDT Lab Department of Oncology in [address] [phone] Kadeem Marshall P.A.-C., M.S. [address] [place] [phone] 02/23/2025 9:20 AM CDT Office Visit Department of Oncology in [address] [phone] Kadeem Marshall P.A.-C., M.S. [address] [place] [phone] 02/23/2025 10:00 AM CDT Infusion Department of Oncology in [address] [phone] Kadeem Marshall P.A.-C., M.S. [address] [place] [phone] 03/07/2025 10:20 AM BLENDING MACHINE FEEDER Appointment Department of Laboratory Medicine in [address] [phone] Kadeem Marshall P.A.-C., M.S. [address] [place] [phone] 03/08/2025 8:00 AM BLENDING MACHINE FEEDER Office Visit Department of Oncology in [place], [place] [address] [place] [phone] Kadeem Marshall P.A.-C., M.S. [address] [place] [phone] 03/08/2025 8:45 AM BLENDING MACHINE FEEDER Infusion Department of Oncology in [place], [place] [address] [place] [phone] Kadeem Marshall P.A.-C., M.S. [address] [place] [phone] Scheduled Orders Name Type Priority Associated Diagnoses [...] 0.25 mg 0.25 mg, subcutaneous, Once, On Wed01/25/25 at 1500, For 1 dose, 1/2 way [...] mL/hr, Administer over 90 Minutes, Once, On Wed01/25/25 at 1500, For 1 dose, May be [...] dose, At treatment start time for nauseaIndications:Karen alarcont Neoplasm Of Cecum (HCC),Secondary Malignant Neoplasm Peritoneum [...] documented as of this encounter Care Teams Senior Gis Analyst Relationship Specialty Start Date End Date Elsewhere, Pcp PCP - General Internal Medicine 03/08/24 documented as of this encounter
--- OUTSIDE RECORDS SUMMARY | 2025-01-27 14:45 | XMS_ITS | Encounter Summary ---
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 [address] [place] [address] Phone: tel: fax: Department of Oncology in [place], [place] [address] [place] [address] Phone: tel: Referral ID Status Reason Start Date Expiration Date V isits Requested Visits Authorized [id number] Authorized 09/06/2024 09/06/2025 99 99 Encounter Details Date Type Department Care Team (Late st Contact Info) Description 01/27/2025 2:45 PM CDT Infusion Department of Infusion Therapy in [place], [place] [address] [place] [phone] Kadeem Marshall P.A.-C., M.S. [address] [place] [address] Malignant Neoplasm Of Cecum (HCC) (Primary Dx); Secondary Malignant Neoplasm Peritoneum (HCC) Discharge Disposition: Home or Self Care Social History Tobacco Use Types Packs/Day Years Used Date Smoking Tobacco: Never Passive Smoke Exposure: Never Smokeless Tobacco: Never Alcohol Use Standard Drinks/Week Comments Not Currently 0 (1 standard drink = 0.6 oz pur e alcohol) [facility] Utilities Answer Date Recorded In the [...] your living situation today? I have a [facility] place to live 2024 Education Answer [...] AM CDT Lab Department of Oncology in [address] [phone] Kadeem Marshall P.A.-C., M.S. [address] [place] [phone] 02/23/2025 9:20 AM CDT Office Visit Department of Oncology in [address] [phone] Kadeem Marshall P.A.-C., M.S. [address] [place] [phone] 02/23/2025 10:00 AM CDT Infusion Department of Oncology in [address] [phone] Kadeem Marshall P.A.-C., M.S. [address] [place] [phone] 03/07/2025 10:20 AM ELECTRICAL PROJECT ENGINEER Appointment Department of Laboratory Medicine in [address] [phone] Kadeem Marshall P.A.-C., M.S. [address] [place] [phone] 03/08/2025 8:00 AM ELECTRICAL PROJECT ENGINEER Office Visit Department of Oncology in [place], [place] [address] [place] [phone] Kadeem Marshall P.A.-C., M.S. [address] [place] [phone] 03/08/2025 8:45 AM ELECTRICAL PROJECT ENGINEER Infusion Department of Oncology in [place], [place] [address] [place] [phone] Kadeem Marshall P.A.-C., M.S. [address] [place] [phone] documented as of this encounter Visit Diagnoses [...] documented as of this encounter Care Teams Manufacturing Executive Relationship Specialty Start Date End Date Elsewhere, Pcp PCP - General Internal Medicine 03/08/24 documented as of this encounter
--- OUTSIDE RECORDS SUMMARY | 2025-01-27 16:38 | XMS_ITS | Encounter Summary ---
Author Organization [facility] Address [address] [place] [address] Care Team Providers Care Cardiac Nurse Specialist Name Role Phone Elsewhere, Pcp Primary Care Provider Unavailabl e Reason for Referral * Medication Prior Authorization - Closed Specialty Diagnoses / Procedures Referred By Edgardo t Referred To Contact Diagnoses Postherpetic Trigeminal Neuralgia Christopher Arteaga APRN, C.N.P., D.N.P. [address] [place] [address] Phone: tel: fax: Referral ID Status Reason Start Date Expiration Date Visits Re quested Visits Authorized [id number] Closed 1 1 Reason for Visit * Reason Comments Headache Encounter Details Date Type Department Care Team (Late st Contact Info) Description 01/27/2025 4:38 PM CDT - 01/27/2025 6:30 PM CDT Emergency [facility] [address] [place] [phone] Christopher Arteaga APRN, C.N.P., D.N.P. [address] [place] [phone] Postherpetic Trigeminal Neuralgia (Primary Dx) Discharge Disposition: Home or Self Care Social History Tobacco Use Types Packs/Day Years Used Date Smoking Tobacco: Never Passive Smoke Exposure: Never Smokeless Tobacco: Never Alcohol Use Standard Drinks/Week Comments Not Currently 0 (1 standard drink = 0.6 oz pur e alcohol) [facility] Utilities Answer Date Recorded In the past 12 months has e [employer], gas, oil, or water [employer] threatened to shut off services in your [...] your living situation today? I have a [facility] place to live 2024 Education Answer [...] directed. Two prescriptions will be at the [facility] in [place]. 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 * Trigeminal Neuralgia * Shingles (Mongolian) documented in this encounter Medications at Time of Discharge acetaminophen (TYLENOL) 500 mg tablet Take 2 tablets (1,000 mg total) by mouth every 6 (six) hours as needed for pain. 06/03/2023 ascorbic acid, vitamin C, (ascorbic acid) 500 mg tablet Take 500 mg by mouth daily. cholecalciferol (VITAMIN D3) 50 mcg (2,000 Unit) capsule Take 50 mcg by mouth daily. cholecalciferol, vitD3,/vit K2 (VITAMIN D3-VITAMIN K2 ORAL) [...] needed for diarrhea. 90 capsule 2 10/05/2024 LORazepam (Ativan) 0.5 mg tablet Take 1 tablet (0.5 mg total) by mouth 2 (two) times a day as needed (nausea). Post chemotherapy 20 tablet 11/30/2024 losartan (Cozaar) 25 mg tablet Take 1 tablet (25 mg total) by mouth daily. 30 tablet 2 09/22/2024 MAGNESIUM GLYCINATE ORAL Take by mouth at bedtime. Per Patient: 2 at bedtime OLANZapine (ZyPREXA) 5 mg tablet Take 1 tablet (5 mg total) by mouth at bedtime. 30 tablet 10/18/2024 ondansetron (Zofran) 8 mg tabletIndication s:Malignant Neoplasm Of Cecum (HCC) Take 1 tablet (8 mg total) by mouth every 8 (eight) hours as needed for nausea or vomiting. 30 tablet 3 11/17/2024 12:36 PM CDT 11/17/2024 oxyCODONE (ROXICODONE) 5 mg immediate release tabletIndication s:Acute Pain Take 1 tablet (5 mg total) by mouth every 4 (four) hours as needed for severe pain or score 7-10 of 10 (for breakthrough pain) Indication: Acute Pain. 10 tablet 09/16/2023 1:52 PM CDT 09/16/2023 penciclovir (Denavir) 1 % cream Apply 1 Application topically every 2 (two) hours as needed (Cold Sores). 1.5 g 01/14/2024 prochlorperazine (Compazine) 10 mg tabletIndication s:Malignant Neoplasm Of Cecum (HCC) Take 1 tablet (10 mg total) by mouth every 6 (six) hours as needed for nausea or vomiting (unrelieved by ondansetron). 30 tablet 3 11/17/2024 12:36 PM CDT 11/17/2024 simethicone (MYLICON) 80 mg chewable tablet Chew 1 tablet (80 mg total) 4 (four) times a day as needed for flatulence (Bloating). 08/03/2022 turmeric (CURCUMIN MISC) Take by mouth 2 [...] Vitamin D, 2 pumps anytime during day oxyCODONE (Roxicodone) 5 mg immediate release tabletIndication s:Acute Pain Take 1 tablet (5 mg total) by mouth every 4 (four) hours as needed for pain for up to 3 days Indication: Acute Pain. 01/27/2025 valACYclovir (Valtrex) 1000 mg tabletIndication s:Postherpetic Trigeminal [...] and is now localized in her right synagogue. The pain is described as 'pulsing' and [...] small papular lesion with erythema at the synagogue. Lungs are clear, heart S1-S2 with no [...] headache radiating from the occiput to the synagogue, associated with a vesicular lesion on the right chin and a small erythematous papule at the synagogue. She reported associated nausea, transient visual disturbances, [...] cell arteritis): Pulsating headache over the right synagogue raises concern for temporal arteritis, though it [...] Arteaga APRN, C.N.P., D.N.P. Oxycodone was from [employer]. FOLLOW UP Contact Information for Follow-ups Elsewhere, Pcp Specialty: Internal Medicine, Line Driver, Pediatrics, Women's Health, Family Medicine Relationship: PCP - General Office Next Steps: Follow up in 1 week(s) Christopher Arteaga DNP, DALIA, CHARGE ACCOUNT CLERK-C, AGACNP-BC, ENP-C Emergency Medicine [1] Past Medical [...] AM CDT Lab Department of Oncology in [place], [place] [address] [place] [phone] Kadeem Marshall P.A.-C., M.S. [address] [place] [phone] 02/23/2025 9:20 AM CDT Office Visit Department of Oncology in [place], [place] [address] [place] [phone] Kadeem Marshall P.A.-C., M.S. [address] [place] [phone] 02/23/2025 10:00 AM CDT Infusion Department of Oncology in [address] [phone] Kadeem Mrashall P.A.-C., M.S. [address] [place] [phone] 03/07/2025 10:20 AM WOOD ROUTER Appointment Department of Laboratory Medicine in [address] [phone] Kadeem Marshall P.A.-C., M.S. [address] [place] [phone] 03/08/2025 8:00 AM WOOD ROUTER Office Visit Department of Oncology in [address] [phone] Kadeem Marshall P.A.-C., M.S. [address] [place] [phone] 03/08/2025 8:45 AM WOOD ROUTER Infusion Department of Oncology in [address] [phone] Kadeem Marshall P.A.-C., M.S. [address] [place] [phone] documented as of this encounter Procedures Procedure [...] sensitive forintracranial metastasis is clinically indicated. us Tammy Kapadia APRN.N.P., D.N.P. IMG CT PROCE DURES Final Result * (ABNORMAL) Basic Metabolic Panel [...] 5:18 PM CDT us Christopher Arteaga APRN, Tammy.N.P., D.N.P. LAB BLOOD AD D-ON Final Result [facility] [address] [address], [facility] CNFL [facility] in [address] [address] * (ABNORMAL) CRP (C-Reactive Protein) (01/27/2025 5:16 PM CDT) Pathologist [facility] C-Reactive Protein (CRP), P 5.1(H) <5.0 mg/L 01/27/2025 5:36 PM CDT CNFL Blood (Blood, Venous) 01/27/2025 5:16 PM CDT 01/27/2025 5:18 PM CDT us Christopher Arteaga APRN, C.N.P., D.N.P. LAB BLOOD AD D-ON Final Result [facility] [address] [address], [facility] in [address] [address] * (ABNORMAL) CBC with Differential, Blood (01/27/2025 5:16 PM CDT) [facility] Hemoglobin 11.8 11.6 - 15.0 g/dL 01/27/2025 [...] AD D-ON Final Result Performing Organization Address City/State/[facility] Co de Phone Number [facility] [address] [place] [address], [facility] [place] [address] documented in this encounter Visit Diagnoses Diagnosis [...] dose 1714 (Given - Provid er: Nicolette Brody, [...] documented as of this encounter Care Teams Cardiac Nurse Specialist Relationship Specialty Start Date End Date Elsewhere, Pcp PCP - General Internal Medicine 03/08/24 documented as of this encounter
--- OUTSIDE RECORDS SUMMARY | 2025-02-22 11:01 | XMS_ITS | Encounter Summary ---
Author Organization [facility] Address [address] [place] [address] Care Team Providers Care Long Lines Operator Name Role Phone Elsewhere, Pcp Primary Care Provider Unavailabl e Reason for Referral * MRI/CAT/PET Scan (Routine) - Closed Specialty Diagnoses / Procedures Referred By Contac t Referred To Contact Radiology Diagnoses Secondary Malignant Neoplasm Liver (HCC) Procedures CT Abdomen Pelvis with IV Contrast Kadeem Marshall P.A.-C., M.S. [address] [place] [address] Phone: tel: fax: [facility] Region Referral ID Status Reason Start Date Expiration Date Visits Re quested Visits Authorized [id number] Closed 01/30/2025 05/02/2026 1 1 * MRI/CAT/PET Scan (Routine) - Closed Specialty Diagnoses / Procedures Referred By Contac t Referred To Contact Radiology Diagnoses Secondary Malignant Neoplasm Liver (HCC) Procedures CT Chest with IV Contrast Kadeem Marshall P.A.-C., M.S. [address] [place] [address] Phone: tel: fax: [facility] Region Referral ID Status Reason Start Date Expiration Date Visits Re quested Visits Authorized [id number] Closed 01/30/2025 05/02/2026 1 1 Reason for Visit * MRI/CAT/PET Scan (Routine) - Closed Specialty Diagnoses / Procedures Referred By Edgardo t Referred To Contact Radiology Diagnoses Secondary Malignant Neoplasm Liver (HCC) Procedures CT Abdomen Pelvis with IV Contrast Kadeem Marshall P.A.-C., M.S. [address] [place] [phone] Phone: tel: fax: [facility] Referral ID Status Reason Start Date Expiration Date Visits Re quested Visits Authorized [id number] Closed 01/30/2025 05/02/2026 1 1 Encounter Details Date Type Department Care Team (Latest Contact Info) Description 02/22/2025 11:01 AM CDT Hospital Encounter Department of Radiology in [address] [phone] Kadeem Marshall P.A.-C., M.S. [address] [place] [phone] Secondary Malignant Neoplasm Liver (HCC) Social History Tobacco Use Types Packs/Day Years Used Date Smoking Tobacco: Never Passive Smoke Exposure: Never Smokeless Tobacco: Never Alcohol Use Standard Drinks/Week Comments Not Currently 0 (1 standard drink = 0.6 oz pur e alcohol) [facility] Utilities Answer Date Recorded In the past 12 months has e electric, gas, oil, or water [employer] threatened to shut off services in your [...] your living situation today? I have a [facility] place to live 2024 Education Answer Date [...] AM CDT Lab Department of Oncology in [place], [place] [address] [place] [phone] Kadeem Marshall P.A.-C., M.S. [address] [place] [phone] 02/23/2025 9:20 AM CDT Office Visit Department of Oncology in [place], [place] [address] [place] [phone] Kadeem Marshall P.A.-C., M.S. [address] [place] [phone] 02/23/2025 10:00 AM CDT Infusion Department of Oncology in [address] [phone] Kadeem Marshall P.A.-C., M.S. [address] [place] [phone] 03/07/2025 10:20 AM OFFICE TECHNOLOGIST Appointment Department of Laboratory Medicine in [address] [phone] Kadeem Marshall P.A.-C., M.S. [address] [place] [phone] 03/08/2025 8:00 AM OFFICE TECHNOLOGIST Office Visit Department of Oncology in [address] [phone] Kadeem Marshall P.A.-C., M.S. [address] [place] [phone] 03/08/2025 8:45 AM OFFICE TECHNOLOGIST Infusion Department of Oncology in [address] [phone] Kadeem Marshall P.A.-C., M.S. [address] [place] [phone] documented as of this encounter Procedures Procedure [...] Mediastinum: Unremarkable visualized thyroid gland. Right chest oevxFnsk-U-Ehat terminates in the high right atrium. Normal [...] 4.0 cm left loweranterior abdominal wall mass (), previously 2.9 cm. 3D maximum intensity projection [...] Mediastinum: Unremarkable visualized thyroid gland. Right chest fltcLjgx-Q-Kaaa terminates in the high right atrium. Normal heart size. Nopericardial effusion. Normal caliber great vessels. No thoracicadenopathy. Unremarkable esophagus. Liver: Similar post ablation changes. Increased number and size ofhypoattenuating hepatic lesions, including new 0.6 cm left hepatic lesion(/60) and increased size of 1.4 cm right [...] documented as of this encounter Care Teams Long Lines Operator Relationship Specialty Start Date End Date Elsewhere, Pcp PCP - General Internal Medicine 03/08/24 documented as of this encounter
--- OUTSIDE RECORDS SUMMARY | 2025-02-22 15:43 | XMS_ITS | Clinical Summary ---
Author Organization [facility] Address [address] [place] [address] Care Team Providers Care Maintenance And Utilities Supervisor Name Role Phone Elsewhere, Pcp Primary Care Provider Unavailabl e Source Comments Patient records contain information from all sites at [facility]. For routine questions regarding patient records, call [phone] during business hours, M-F 8:00 AM - 5:00 PM Central Time. Record requests for emergency care only can be directed to [phone] at any time.[facility] Allergies Active Allergy Reactions Criticality Noted Date Comments Acyclovir Other (see comments) 04/01/2023 Explosive diarrhea Amoxicillin Other (see comments) 04/10/2024 Tongue swelled up Sore spots on tongue Codeine GI intolerance 04/25/2012 Pt tolerates oxycodone and tramadol Prochlorperazine Anxiety 11/04/2024 Dexamethasone (Pf) Other (see comments) Low 024 Pt reports makes her dizzy Doxycycline Hives (Reselect Reaction),Rash 08/12/2017 Aprepitant Other (see comments) 10/18/2024 Chest tightness, throat swelling Lidocaine-Prilocaine Blisters High 05/25/2024 TEGADERM 3M BANDAGE---BURNED SKIN Ok to use skin barrier and Tegaderm Transparent HP dressing over port site Lisinopril Cough 08/09/2017 Ondansetron Hcl Headache 09/15/2023 Medications * This document contains information received from the source organization and may not represent a complete record from that organization. simethicone (MYLICON) 80 mg chewable tablet Chew 1 tablet (80 mg total) 4 (four) times a day as needed for flatulence (Bloating). 3 Active Additional Information Patient taking differently:80 mg oral 4 times daily PRN, flatulence, Bloating,HASN'T NEEDED FOR SEVERAL MONTHS, Reported on 05/25/2024 acetaminophen (TYLENOL) 500 mg tablet Take 2 tablets (1,000 mg total) by mouth every 6 (six) hours as needed for pain. 4 Active Additional Information Patient not taking.Reported on 07/14/2024 cholecalcifero l (VITAMIN D3) 50 mcg (2,000 Unit) capsule Take 50 mcg by mouth daily. Active oxyCODONE (ROXICODONE) 5 mg immediate release tabletIndicati ons:Acute Pain Take 1 tablet (5 mg total) by mouth every 4 (four) hours as needed for severe pain or score 7-10 of 10 (for breakthrough pain) Indication: Acute Pain. 10 tablet 09/16/2023 1:52 PM CDT 4 Active Additional Information Patient taking differently:5 mg oral Every 4 hours PRN, severe pain or score 7-10 of 10, for breakthrough pain,HASN'T USED IN ALMOST A YEAR, Indications: Acute Pain, Reported on 05/25/2024 loperamide (Imodium A-D) 2 mg capsule Take 1 capsule (2 mg total) by mouth 4 (four) times a day as needed for diarrhea. 60 capsule 11 11/05/2023 1:07 PM CDT 4 Active Additional Information Patient taking differently:2 mg oral 4 times daily PRN, diarrhea,HASN'T NEEDED FOR A FEW MONTHS, Reported on 05/25/2024 penciclovir (Denavir) 1 % cream Apply 1 Application topically every 2 (two) hours as needed (Cold Sores). 1.5 g 4 Active Additional Information Patient taking differently:1 Application topical Every 2 hour PRN, Cold Sores,HASN'T NEEDED FOR SEVERAL MONTHS, Reported on 05/25/2024 ascorbic acid, vitamin C, (ascorbic acid) 500 mg tablet Take 500 mg by mouth daily. Active losartan (Cozaar) 25 mg tablet Take 1 tablet (25 mg total) by mouth daily. 30 tablet 2 5 Active Additional Information Patient not taking.Reported on 10/07/2024 loperamide (Imodium A-D) 2 mg capsule Take 1 capsule (2 mg total) by mouth 4 (four) times a day as needed for diarrhea. 90 capsule 2 5 Active OLANZapine (ZyPREXA) 5 mg tablet Take 1 tablet (5 mg total) by mouth at bedtime. 30 tablet 5 Active Additional Information Patient not taking.Informant: Self, Reported on 12/31/2024 ondansetron (Zofran) 8 mg tabletIndicati ons:Malignant Neoplasm Of Cecum (HCC) Take 1 tablet (8 mg total) by mouth every 8 (eight) hours as needed for nausea or vomiting. 30 tablet 3 11/17/2024 12:36 PM CDT 5 11/18/19 26 Active Additional Information Patient not taking.Reason: Side effects, Informant: Self, Reported on 12/31/2024 prochlorperazi ne (Compazine) 10 mg tabletIndicati ons:Malignant Neoplasm Of Cecum (HCC) Take 1 tablet (10 mg total) by mouth every 6 (six) hours as needed for nausea or vomiting (unrelieved by ondansetron). 30 tablet 3 11/17/2024 12:36 PM CDT 5 11/18/19 26 Active Additional Information Patient not taking.Reason: Side effects, Informant: Self, Reported on 12/31/2024 LORazepam (Ativan) 0.5 mg tablet Take 1 tablet (0.5 mg total) by mouth 2 (two) times a day as needed (nausea). Post chemotherapy 20 tablet 5 Active cholecalcifero l, vitD3,/vit K2 (VITAMIN D3-VITAMIN K2 ORAL) Take 1 capsule by mouth daily before morning meal. Per Patient: 10,000 with breakfast Active UNABLE TO FIND Take by mouth daily before morning meal. Per Patient: 2 with breakfast, Methylmaster, Methyl B12 Active MAGNESIUM GLYCINATE ORAL Take by mouth at bedtime. Per Patient: 2 at bedtime Active turmeric (CURCUMIN MISC) Take by mouth 2 (two) times a day. Per Patient: 2 at breakfast 2 at dinner Active UNABLE TO FIND Take by mouth daily before morning meal. Per Patient: Liver Sauce, 1 tsp upon waking Active UNABLE TO FIND Take by mouth at bedtime. Per Patient: [place], 1 at bedtime Active UNABLE TO FIND Take by mouth 2 (two) times a day. Per Patient: Argentyl Silver, 2 tsp at breakfast and 2 tsp dinner Active UNABLE TO FIND Take by mouth. Per Patient: Artemesinin, 1 at breakfast and 1 at dinner, 4 days on 3 days off Active UNABLE TO FIND Per Patient: Liposomal Vitamin D, 2 pumps anytime during day Active gabapentin (Neurontin) 100 mg capsule Take 1 capsule (100 mg total) by mouth 2 (two) times a day for 10 days, THEN 2 capsules (200 mg total) at bedtime for 10 days. 40 capsule Active valACYclovir (Valtrex) 1000 mg tabletIndicati ons:Postherpet ic Trigeminal Neuralgia Take 1 tablet (1,000 mg total) by mouth 3 (three) times a day for 7 days. 21 tablet 5 02/04/20 25 oxyCODONE (Roxicodone) 5 mg immediate release tabletIndicati ons:Acute Pain Take 1 tablet (5 mg total) by mouth every 4 (four) hours as needed for pain for up to 3 days Indication: Acute Pain. 5 01/31/20 25 Hospital, Clinic, or Other Facility Administered Medication Ordered Dose Route Frequency Start Date End Date Status NaCl 0.9% infusion 20 mL/hr IV Continuous 10/18/2024 Active diphenhydrAMINE injection 25 mg (BenadryL)Indications: Malignant Neoplasm Of Cecum (HCC) 25 mg IV Every 15 min PRN 10/18/2024 Active methylPREDNISolone sod succinate (PF) injection 40 mg (SOLU-MedroL)Indicatio ns:Malignant Neoplasm Of Cecum (HCC) 40 mg IV Every 15 min PRN 10/18/2024 Acti ve Active Problems Problem Noted Date Diagnosed Date Nodules Pulmonary Multiple 10/05/2024 Postprocedural Pneumothorax 2024 Lesion Liver 2024 Dizziness 03/31/2024 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 She had been having symptoms of chest pain prior to the angiogram. She was treated for hypertension and symptoms of chest pain resolved. Preanesthetic Medical Exam 07/21/2022 Assessment & Plan (07/21/2022 11:16 AM CDT): Pleasant 62 y.o. female scheduled for inpatient colectomy with Dr. Meeks secondary to malignant neoplasm of the cecum. she reports she walks and rides her stationary bike without cardiopulmonary symptoms. Patient was instructed to discontinue all bcju-apb-pugajil vitamins and supplements, aspirin and NSAID containing products until after surgery is complete. If she needs anything for pain she was instructed to use Tylenol. 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 on 02/11/2024 Overview (07/20/2022): Added automatically from request for surgery [id number] Assessment & Plan (07/21/2022 11:15 AM CDT): Scheduled to undergo colectomy with Dr. Meeks 07/30/2022. She has the bowel prep and antibiotics provided by her surgical team. Hypertension Essential Primary 08/02/2017 Assessment & Plan (07/21/2022 11:14 AM CDT): Hold losartan 24 hours prior to procedure Polyp Colon Adenomatous 08/08/2014 Overview (07/30/2022): Colonoscopy 09/2015 polyps repeat in [address] Lee indicates recheck in one year Had pos FIT and fragments on path Resolved Problems Problem Noted Date Diagnosed Date Resolved Date Allergy Penicillin Antibioti c Personal History 07/21/2022 05/17/2023 Abnormal Findings On Diagnos tic Imaging Of Other Specified Body Structures 10/01/2017 07/22/19 23 Overview (07/21/2022): Angiogram from 09/28/2017 showed 30% stenosis proximal left anterior descending and otherwise normal angiogram. Encounters Date Type Department Care Team Description 02/22/2025 11:01 AM CDT Hospital Encounter Department of Radiology in [address] [phone] Kadeem Marshall P.A.-C., M.S. Secondary Malignant Neoplasm Liver (HCC) 02/01/2025 Orders Only Department of Infusion Therapy in [address] [phone] Katherine King, R.N. Malignant Neoplasm Of Cecum (HCC) (Primary Dx) 02/01/2025 Orders Only Department of Oncology in [address] [phone] Kadeem Marshall P.A.-C., M.S. 01/27/2025 4:38 PM CDT - 01/27/2025 6:30 PM CDT Emergency [facility] [address] [place] [phone] Christopher Arteaga APRN, C.N.P., D.N.P. Postherpetic Trigeminal Neuralgia (Primary Dx) Discharge Disposition: Home or Self Care 01/27/2025 2:45 PM CDT Infusion Department of Infusion Therapy in [place], [place] [address] [place] [phone] Kadeem Marshall P.A.-C., M.S. Malignant Neoplasm Of Cecum (HCC) (Primary Dx); Secondary Malignant Neoplasm Peritoneum (HCC) Discharge Disposition: Home or Self Care 01/27/2025 Clinical Communication Department of Infusion Therapy in [address] [phone] Kevin Tuttle, [facility], R.N. 01/25/2025 1:00 PM CDT Infusion Department of Oncology in [address] [phone] Kadeem Marshall P.A.-C., M.S. Malignant Neoplasm Of Cecum (HCC) (Primary Dx); Secondary Malignant Neoplasm Peritoneum (HCC) 01/25/2025 11:00 AM CDT Office Visit Department of Oncology in [address] [phone] Shahana Castillo M.D. Malignant Neoplasm Of Cecum (HCC) (Primary Dx); Secondary Malignant Neoplasm Peritoneum (HCC); Secondary Malignant Neoplasm Liver (HCC) 01/25/2025 8:00 AM CDT Lab Department of Oncology in [address] [phone] Kadeem Marshall P.A.-C., M.S. Malignant Neoplasm Of Cecum (HCC) (Primary Dx); Secondary Malignant Neoplasm Peritoneum (HCC) 01/13/2025 3:00 PM CDT Infusion Department of Infusion Therapy in [address] [address] Preet Segura M.D. Secondary Malignant Neoplasm Peritoneum (HCC) (Primary Dx); Malignant Neoplasm Of Cecum (HCC) 01/11/2025 1:15 PM CDT Infusion Department of Oncology in [address] [address] Preet Segura M.D. Secondary Malignant Neoplasm Peritoneum (HCC) (Primary Dx); Malignant Neoplasm Of Cecum (HCC) 01/11/2025 11:00 AM CDT Lab Department of Oncology in [address] [phone] Preet Segura M.D. Malignant Neoplasm Of Cecum (HCC) (Primary Dx); Secondary Malignant Neoplasm Peritoneum (HCC) 12/31/2024 1:15 PM CDT Infusion Department of Infusion Therapy in [place], [place] [address] [place] [phone] Preet Segura M.D. Secondary Malignant Neoplasm Peritoneum (HCC) (Primary Dx); Malignant Neoplasm Of Cecum (HCC) 12/29/2024 11:30 AM CDT Infusion Department of Oncology in [address] [phone] Preet Segura M.D. Secondary Malignant Neoplasm Peritoneum (HCC) (Primary Dx); Malignant Neoplasm Of Cecum (HCC) 12/29/2024 10:30 AM CDT Office Visit Department of Oncology in [address] [phone] Ralph Corado M.B.B.S., M.D. Malignant Neoplasm Of Cecum (HCC) (Primary Dx); Secondary Malignant Neoplasm Peritoneum (HCC) 12/29/2024 7:30 AM CDT Lab Department of Laboratory Medicine and Pathology, [facility] in [address] [address] Preet Segura M.D. Malignant Neoplasm Of Cecum (HCC) (Primary Dx); Secondary Malignant Neoplasm Peritoneum (HCC) 12/17/2024 2:45 PM CDT Infusion Department of Infusion Therapy in [address] [address] Preet Segura M.D. Secondary Malignant Neoplasm Peritoneum (HCC) (Primary Dx); Malignant Neoplasm Of Cecum (HCC) 12/15/2024 2:30 PM CDT Infusion Department of Oncology in [address] [phone] Kadeem Marshall P.A.-C., M.SAlpesh Secondary Malignant Neoplasm Peritoneum (HCC) (Primary Dx); Malignant Neoplasm Of Cecum (HCC) 12/15/2024 7:40 AM CDT Lab Department of Infusion Therapy in [address] [address] Preet Segura M.D. Malignant Neoplasm Of Cecum (HCC); Secondary Malignant Neoplasm Peritoneum (HCC) 12/15/2024 Orders Only Department of Oncology in [place], [place] [address] [place] [address] Chelly Starr, Pharm.D., R.Ph. 12/04/2024 Results Follow-Up Department of Oncology in [place], [place] [address] [place] [phone] Kadeem Marshall P.A.-C., M.S. Aura Tempus xT, Normal - Sent Out Lab 11/30/2024 1:20 PM CDT Office Visit Department of Oncology in [place], [place] [address] [place] [address] Kadeem Marshall P.A.-C., M.S. Malignant Neoplasm Of Cecum (HCC) (Primary Dx) 11/30/2024 7:36 AM CDT - 11/30/2024 11:59 PM CDT Hospital Encounter Department of Radiology, [facility], in [place], [place] [address] [place] [address] Preet Segura M.D. Malignant Neoplasm Of Colon Adenocarcinoma (HCC) Discharge Disposition: Home or Self Care 11/30/2024 Orders Only Department of Oncology in [place], [place] [address] [place] [address] Chelly Starr, Pharm.D., R.Ph. Malignant Neoplasm Of Cecum (HCC) (Primary Dx); Secondary Malignant Neoplasm Peritoneum (HCC) from Last 3 Months Family History Medical History Relation Name Comments Prostate cancer Father Negrito Unger he beat it. Skin cancer Father Negrito Unger on face Hypertension Mother Anisa Unger Lymphadema Mother Anisa Unger Thyroid disease Mother Anisa Unger Hypothyroidi sm Psoriasis Son 1 Leo Meng Asthma Son 2 Lazaroalina Kwon Colon cancer Neg Hx Relation Name Status Comments Father Negrito Unger Mother Anisa Unger Son 1 Leo Meng Alive Son 2 Lazaro Kwon Alive Social History Tobacco Use Types Packs/Day Years Used Date Smoking Tobacco: Never Passive Smoke Exposure: Never Smokeless Tobacco: Never Tobacco Cessation:Counseling Given: Not Answered Alcohol Use Standard Drinks/Week Comments Not Currently 0 (1 standard drink = 0.6 oz pur e alcohol) [facility] Utilities Answer Date Recorded In [...] your living situation today? I have a [facility] place to live 2024 Education Answer [...] Orientation Straight 07/13/2022 10 :34 AM CDT Last Filed Vital Signs Vital Sign Reading Time Taken Comments Blood Pressure 151/81 01/27/2025 6:00 PM CDT Pulse 78 01/27/2025 6:00 PM CDT Temperature 36.4 C (97.5 F) 01/27/2025 4:43 PM CDT Respiratory Rate 16 01/27/2025 4:43 PM CDT Oxygen Saturation 97% 01/27/2025 6:00 PM CDT Inhaled Oxygen Concentration - - Weight 68.9 kg (151 lb 14.4 oz) 01/27/2025 4:44 PM CDT Height 158 cm (5' 2.21) 01/25/2025 10: 57 AM CDT Body Mass Index 27.6 01/25/2025 10:57 AM CDT Plan of Treatment Upcoming Encounters Date Type Department Care Team (Late st Contact Info) Description 02/23/2025 6:45 AM CDT Lab Department of Oncology in [address] [address] Kadeem Marshall P.A.-C., M.S. [address] [place] [phone] 02/23/2025 9:20 AM CDT Office Visit Department of Oncology in [address] [phone] Kadeem Marshall P.A.-C., M.S. [address] [place] [phone] 02/23/2025 10:00 AM CDT Infusion Department of Oncology in [address] [phone] Kadeem Marshall P.A.-C., M.S. [address] [place] [phone] 03/07/2025 10:20 AM BEAN SNAPPER Appointment Department of Laboratory Medicine in [address] [phone] Kadeem Marshall P.A.-C., M.S. [address] [place] [phone] 03/08/2025 8:00 AM BEAN SNAPPER Office Visit Department of Oncology in [place], [place] [address] [place] [phone] Kadeem Marshall P.A.-C., M.S. [address] [place] [phone] 03/08/2025 8:45 AM BEAN SNAPPER Infusion Department of Oncology in [place], [place] [address] [place] [phone] Kadeem Marshall P.A.-C., M.S. [address] [place] [phone] Health Maintenance Due Date Last Done Comments CT Colonography 1960 Cologuard 1960 Hepatitis C Screening 1960 COVID-19 Vaccine (#1) 1965 Pneumococcal vaccine (50+ years) (1 of 2 - PCV) 1979 Zoster Vaccines (1 of 2) 1979 RSV vaccine - (32-36 weeks) or 50+ years (1 - Risk 50-74 years 1-dose series) 2010 Mammogram 03/02/2024 03/02/2023, 10/2022, 02/25/2022, Additional history exists Depression Screening (Annual PHQ-2) 04/26/2024 DTaP,Tdap,and Td Vaccines (2 - Td or Tdap) 06/20/2024 06/20/2014, 03/10/2002, 03/10/2002 Office Visit for Blood Pressure Check / Re-check 09/08/2024 09/09/2023 Influenza Vaccine (#1) 2024 Creatinine Level (Kidney Function Test) 01/27/2026 01/27/2025, 01/25/2025, 01/11/2025, Additional history exists Potassium Level 01/27/2026 01/27/2025, 05/2024, 01/11/2025, Additional history exists Sodium Level 01/27/2026 01/27/2025, 05/2024, 01/11/2025, Additional history exists Lipid (Cholesterol) Screening 03/11/2027 03/11/2022 Colonoscopy 07/04/2027 07/03/2022, 07/25, 08/03/2014 Colorectal Cancer Surveillance 07/04/2027 Fasting Glucose for Diabetes Screening 01/28/2028 01/27/2025, 01/25/2025, 01/11/2025, Additional history exists HPV Vaccines Aged Out No longer eligi ble based on patient's age to complete this topic IPV Vaccines Aged Out No longer eligi ble based on patient's age to complete this topic Medical Devices Implanted Type Area Speech Instructor Device Identifier Shelf Expiration Date Model / Serial / Lot Prt Cath Infus Mri Intrmd 8f - [id number] Implanted:Qt y: 1 on 11/06/2022 by Don Erickson M.D. at [facility] Implantable [employer]ard 11/24/2023 [id number] / / [id number] Gracia [employer]hn Seprafilm 3x5 - [id number] Implanted:Qt y: 1 on 05/27/2023 by Michele Baldwin M.D., M.S. at [facility] Mesh or Patch N/A: Abdomen Oquendo 09/25/2025 [id number] / / [id number] Seprafilm Full Sheet, 10-Pk 5in X 6in, 1 - [id number] Implanted:Qt y: 1 on 05/27/2023 by Michele Baldwin M.D., M.S. at [facility] Mesh or Patch N/A: Abdomen Oquendo 07/20/2025 [id number] / / [id number] Clip M/L Clp Vsl Endo Brendent /Brenden 3-10mm Implanted:Qt y: 1 on 07/30/2022 by Marquise Meeks M.B., Ch.B., M.P.H. at [facility] [employer] [id number] 06/24/2024 [id number] / / [id number] Procedures Procedure Name Priority Date/Time Associated Diagnosis Comments CT ABDOMEN PELVIS WITH IV CONTRAST RAD - Routine (most inpatients and all outpatients) 02/22/2025 11:25 AM CDT Secondary Malignant Neoplasm Liver (HCC) CT CHEST WITH IV CONTRAST RAD - Routine (most inpatients and all outpatients) 02/22/2025 11:25 AM CDT Secondary Malignant Neoplasm Liver (HCC) CT HEAD WITHOUT IV CONTRAST RAD - Semiurgent (Fast; most ED patients; some inpatients) 01/27/2025 5:34 PM CDT BASIC METABOLIC PANEL, S/P STAT 01/27/2025 5:16 PM CDT C-REACTIVE PROTEIN (CRP), S/P STAT 01/27/2025 5:16 PM CDT CBC WITH DIFFERENTIAL, B STAT 01/27/2025 5:16 PM CDT BILIRUBIN DIRECT, S/P Routine 01/25/2025 8:38 AM [...] Cecum (HCC) Secondary Malignant Neoplasm Peritoneum (HCC) ZINC, S Routine 01/25/2025 8:38 AM CDT [...] Cecum (HCC) Secondary Malignant Neoplasm Peritoneum (HCC) ZINC, S Routine 01/11/2025 11:29 AM CDT Malignant 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) ZINC, S Routine 12/29/2024 7:40 AM CDT Malignant 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) BILIRUBIN DIRECT, S/P Routine 12/29/2024 7:39 AM CDT Malignant 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) COMPREHENSIVE METABOLIC PANEL, S/P Routine 12/29/2024 7:39 AM CDT Malignant 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) CBC WITH DIFFERENTIAL, B Routine 12/29/2024 7:39 AM CDT Malignant 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) MAGNESIUM, S Routine 12/29/2024 7:39 AM CDT Malignant 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) THYROID-STIMULATING HORMONE-SENSITIVE (S-TSH) Routine 12/29/2024 7:39 AM CDT Malignant 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) EXT TEMPUS XT DNA AND RNA SOLID TUMOR Routine 12/15/2024 12:56 PM CDT Malignant Neoplasm Of Cecum (HCC) BILIRUBIN DIRECT, S/P Routine 12/15/2024 7:32 AM CDT Malignant 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) COMPREHENSIVE METABOLIC PANEL, S/P Routine 12/15/2024 7:32 AM CDT Malignant 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) CBC WITH DIFFERENTIAL, B Routine 12/15/2024 7:32 AM CDT Malignant 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) MAGNESIUM, S Routine 12/15/2024 7:32 AM CDT Malignant 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) THYROID-STIMULATING HORMONE-SENSITIVE (S-TSH) Routine 12/15/2024 7:32 AM CDT Malignant 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) ZINC, S Routine 12/15/2024 7:32 AM CDT Malignant 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) AURA TEMPUS XT NORMAL, B Routine 11/30/2024 2:31 PM CDT Malignant Neoplasm Of Cecum (HCC) CARCINOEMBRYONIC AG (CEA), S Routine 11/30/2024 2:31 PM CDT Malignant Neoplasm Of Cecum (HCC) CT CHEST WITH IV CONTRAST RAD - Routine (most inpatients and all outpatients) 11/30/2024 8:16 AM CDT Malignant Neoplasm Of Colon Adenocarcinoma (HCC) CT ABDOMEN PELVIS WITH IV CONTRAST RAD - Routine (most inpatients and all outpatients) 11/30/2024 8:16 AM CDT Malignant Neoplasm Of Colon Adenocarcinoma (HCC) BILIRUBIN DIRECT, S/P Routine 11/30/2024 7:27 AM CDT Malignant 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) COMPREHENSIVE METABOLIC PANEL, S/P Routine 11/30/2024 7:27 AM CDT Malignant 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) CBC WITH DIFFERENTIAL, B Routine 11/30/2024 7:27 AM CDT Malignant 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) MAGNESIUM, S Routine 11/30/2024 7:27 AM CDT Malignant 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) THYROID-STIMULATING HORMONE-SENSITIVE (S-TSH) Routine 11/30/2024 7:27 AM CDT Malignant 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) ZINC, S Routine 11/30/2024 7:27 AM CDT Malignant 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) from Last 3 Months Results * CT Abdomen Pelvis with IV Contrast (02/22/2025 11:25 AM CDT) Only the most recent of2 resultswithin the time period is included. Anatomical Region Laterality Modality Abdomen, Pelvis, Abdominal [...] Mediastinum: Unremarkable visualized thyroid gland. Right chest [id number] terminates in the high right atrium. Normal [...] small volume ascites. us Kadeem Marshall P.A.-C. MAlpeshSAlpesh IMG CT PROCEDURES F inal Result * CT Chest with IV Contrast (02/22/2025 11:25 AM CDT) Only the most recent of2 resultswithin the time period is included. Anatomical Region Laterality Modality Chest, Thoracic RST [...] including new 0.6 cm left hepatic lesion (60) and increased size of 1.4 cm right hepatic lesion (118), previously 0.5 cm. Gallbladder/Biliary System: No biliary [...] Mediastinum: Unremarkable visualized thyroid gland. Right chest [id number] terminates in the high right atrium. 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 No pancreatic [...] CT PROCEDURES F inal Result * CT Head without IV Contrast (01/27/2025 [...] IMG AJAY TODD Final Result * (ABNORMAL) CBC with Differential, Blood (01/27/2025 5:16 PM CDT) Only the most recent of6 resultswithin the time period is included. Pathologist [facility] Hemoglobin 11.8 11.6 - 15.0 g/dL [...] AD D-ON Final Result Performing Organization Address City/[facility]/[place] [address], [facility] [place] [address] * (ABNORMAL) CRP (C-Reactive Protein) (01/27/2025 5:16 PM CDT) C-Reactive Protein (CRP), P 5.1(H) <5.0 mg/L 01/27/2025 5:36 PM CDT CNFL Blood (Blood, Venous) 01/27/2025 5:16 PM CDT 01/27/2025 5:18 PM CDT us Christopher Arteaga APRN, C.N.P., D.N.P. LAB BLOOD [place] [address], [place] CNFL [facility] in [address] [address] * (ABNORMAL) Basic Metabolic Panel (01/27/2025 5:16 [...] D.N.P. LAB BLOOD AD D-ON Final Result [facility] [address] [place] [address], [facility] CNFL [facility] in [address] [address] * Zinc (01/25/2025 8:38 AM CDT) Only the most recent of5 resultswithin the time period is included. Zinc, S 63 60 - 106 mcg/dL 01/26/2025 10:01 AM CDT [facility] Comment: ----ADDITIONAL INFORMATION---- This test was developed and its performance characteristics determined by [facility] in a manner consistent with CLIA requirements. This test has not been cleared or approved by the U.S. Food and Drug Administration. Blood (Blood, Venous) 01/25/2025 8:38 AM CDT 01/25/2025 11:10 AM CDT Kadeem Marshall P.A.-C. M.S. LAB BLOOD NON ADD-O N Final Result [facility] [address] [place] [address] [facility] [address] [place] [address] [place] [address] * S-TSH (Thyroid-Stimulating Hormone - Sensitive) (01/25/2025 8:38 AM CDT) Only the most recent of5 resultswithin the time period is included. Pathologist [facility] TSH, Sensitive 2.6 0.3 - 4.2 mIU/L 01/25/2025 9:40 AM CDT DT Blood (Blood, Venous) 01/25/2025 8:38 AM CDT 01/25/2025 8:44 AM CDT us Kadeem Marshall P.A.-C., M.S. LAB BLOOD ADD-ON Fi nal Result Performing Organization Address City/[facility]/ZIP Co de Phone Number [facility] [address] [place] [address], [place] [facility] [address] [place] [address] * Magnesium (01/25/2025 8:38 AM CDT) Only the most recent of5 resultswithin the time period is included. Magnesium, S 1.9 1.7 - 2.3 mg/dL 01/25/2025 9:40 AM CDT DTL Blood (Blood, Venous) 01/25/2025 8:38 AM CDT 01/25/2025 8:44 AM CDT us Kadeem Marshall P.A.-C., M.S. LAB BLOOD ADD-ON Fi nal Result Performing Organization Address [facility] Co de Phone Number [facility] [address] [place] [address] * Bilirubin, Direct (01/25/2025 8:38 AM CDT) Only the most recent of5 resultswithin the time period is included. Bilirubin, Direct, S <0.1 0.0 - 0.3 mg/dL 01/25/2025 9:40 AM CDT DTL Blood (Blood, Venous) 01/25/2025 8:38 AM CDT 01/25/2025 8:44 AM CDT us Kadeem Marshall P.A.-C. M.S. LAB BLOOD ADD-ON Fi nal Result Performing Organization Address [facility] Co de Phone Number [facility] [address] [place] [address] * (ABNORMAL) Comprehensive Metabolic Panel (01/25/2025 8:38 AM CDT) Only the most recent of5 resultswithin the time period is included. Potassium, S 4.7 3.6 - 5.2 mmol/L [...] M.S. LAB BLOOD ADD-ON Fi nal Result [facility] [address] [place] [address], [facility] DTL [facility] [address] [place] [address] * EXT Tempus xT DNA And RNA (12/15/2024 12:56 PM CDT) EXT Reason for Study To identify somatic and germline mutations relevant to patient's cancer. 12/15/2024 12:56 PM CDT [facility] EXT Genetic Diseases Assessed Cancer 12/15/2024 12:56 PM CDT [facility] EXT Description of Ranges of DNA Sequences Examined 648 gene panel 12/15/2024 12:56 PM CDT [facility] EXT Overall Interpretation positive 12/15/2024 12:56 PM CDT [facility] EXT MSI Stable 12/15/2024 12:56 PM CDT [facility] EXT TMB 8.4 m/MB 12/15/2024 12:56 PM CDT [facility] EXT [facility] Portal [email or web address] [email or web address] [email or web address] 12/15/2024 12:56 PM CDT [facility] Comment:[facility] link EXT Pertinent Negatives KRAS, BRAF, NRAS 12/15/2024 12:56 PM CDT [facility] EXT Low Coverage Regions KDM5D, PMS2 12/15/2024 12:56 PM CDT [facility] EXT Therapy Count 25 025 12:56 PM CDT [facility] EXT Tempus: Potential Therapy 1 Gene: N/A Variant: Wild type: KRAS, NRAS Match Type: wildType Match Type Description: Wild type: KRAS, NRAS Agent: Cetuximab or Panitumumab Drug Class: Anti-EGFR MAb Tissue: Colorectal Cancer Association: Response Evidence Status: Consensus Evidence ID: NCCN NCCN Associated Evidence: Consensus, Colorectal Cancer MSK Associated Evidence: MSK OncoKB, Level 1 Label: FDA On Label FDA Approved?: Yes On label?: Yes 12/15/2024 12:56 PM CDT [facility] EXT Tempus: Potential Therapy 2 Gene: N/A Variant: ERBB2 (HER2) Copy number gain; no detection of pathogenic GOF variants in KRAS, NRAS or BRAF Match Type: wildType Match Type Description: ERBB2 (HER2) Copy number gain; no detection of pathogenic GOF variants in KRAS, NRAS or BRAF Agent: Tucatinib + Trastuzumab Drug Class: Combination (HER2 Inhibitor + Anti-HER2 MAb) Tissue: Colorectal Cancer Association: Response Evidence Status: Consensus Evidence ID: NCCN GEOFFREYN Associated Evidence: Consensus, Colorectal Cancer MSK Associated Evidence: MSK OncoKB, Level 1 Label: FDA On Label FDA Approved?: Yes On label?: Yes 12/15/2024 12:56 PM CDT [facility] EXT Tempus: Potential Therapy 3 Gene: 3430^ERBB2^HGNC Variant: p.D769Y Match Type: snvIndel Match Type Description: ERBB2 p.D769Y Agent: Ado-Trastuzumab Emtansine Drug Class: Anti-HER2 MAb Tissue: Non-Small Cell Lung Cancer Association: Response Evidence Status: Consensus Evidence ID: GEOFFREYN KDB Variant: Pqqn-fr-odrpxvhs Label: FDA Off Label FDA Approved?: Yes On label?: No 12/15/2024 12:56 PM CDT [facility] EXT Tempus: Potential Therapy 4 Gene: 3430^ERBB2^HGNC Variant: p.V777L Match Type: snvIndel Match Type Description: ERBB2 p.V777L Agent: Ado-Trastuzumab Emtansine Drug Class: Anti-HER2 MAb Tissue: Non-Small Cell Lung Cancer Association: Response Evidence Status: Consensus Evidence ID: GEOFFREYN KDB Variant: Sxqb-xz-gjufcjzu Label: FDA Off Label FDA Approved?: Yes On label?: No 12/15/2024 12:56 PM CDT [facility] EXT Tempus: Potential Therapy 5 Gene: 3430^ERBB2^HGNC Variant: ERBB2 Copy number gain Match Type: cnv Match Type Description: ERBB2 Copy number gain Agent: Ado-Trastuzumab Emtansine Drug Class: Anti-HER2 MAb Tissue: Breast Cancer Association: Response Evidence Status: Consensus Evidence ID: NCCN Label: FDA Off Label FDA Approved?: Yes On label?: No 12/15/2024 12:56 PM CDT [facility] EXT Tempus: Potential Therapy 6 Gene: 3430^ERBB2^HGNC Variant: ERBB2 Copy number gain Match Type: cnv Match Type Description: ERBB2 Copy number gain Agent: Margetuximab-cmkb Drug Class: Anti-HER2 MAb Tissue: Breast Cancer Association: Response Evidence Status: Consensus Evidence ID: NCCN Label: FDA Off Label FDA Approved?: Yes On label?: No 12/15/2024 12:56 PM CDT [facility] EXT Tempus: Potential Therapy 7 Gene: 3430^ERBB2^HGNC Variant: ERBB2 Copy number gain Match Type: cnv Match Type Description: ERBB2 Copy number gain Agent: Trastuzumab Drug Class: Anti-HER2 MAb Tissue: Gastroesophageal Junction Adenocarcinoma Association: Response Evidence Status: Consensus Evidence ID: NCCN Label: FDA Off Label FDA Approved?: Yes On label?: No 12/15/2024 12:56 PM CDT [facility] EXT Tempus: Potential Therapy 8 Gene: 3430^ERBB2^HGNC Variant: p.D769Y Match Type: snvIndel Match Type Description: ERBB2 p.D769Y Agent: Neratinib Drug Class: Gonzales-HER TKI Tissue: Breast Cancer Association: Response Evidence Status: Consensus Evidence ID: NCCN KDB Variant: Qkgv-li-pcwgkveb Label: FDA Off Label FDA Approved?: Yes On label?: No 12/15/2024 12:56 PM CDT [facility] EXT Tempus: Potential Therapy 9 Gene: 3430^ERBB2^HGNC Variant: p.V777L Match Type: snvIndel Match Type Description: ERBB2 p.V777L Agent: Neratinib Drug Class: Gonzales-HER TKI Tissue: Breast Cancer Association: Response Evidence Status: Consensus Evidence ID: NCCN KDB Variant: Yulb-lp-rdoencbm Label: FDA Off Label FDA Approved?: Yes On label?: No 12/15/2024 12:56 PM CDT [facility] EXT Tempus: Potential Therapy 10 Gene: 3430^ERBB2^HGNC Variant: ERBB2 Copy number gain Match Type: cnv Match Type Description: ERBB2 Copy number gain Agent: Neratinib Drug Class: Gonzales-HER TKI Tissue: Breast Cancer Association: Response Evidence Status: Consensus Evidence ID: NCCN Label: FDA Off Label FDA Approved?: Yes On label?: No 12/15/2024 12:56 PM CDT [facility] EXT Tempus: Potential Therapy 11 Gene: 3430^ERBB2^HGNC Variant: ERBB2 Copy number gain Match Type: cnv Match Type Description: ERBB2 Copy number gain Agent: Lapatinib Drug Class: Gonzales-HER TKI Tissue: Gastric Cancer Association: Response Evidence Status: Clinical research Evidence ID: [id number] Evidence URL: http://www.ncbi.nlm .nih.gov/pubmed/248 52840 Evidence Title: Lapatinib plus paclitaxel versus paclitaxel alone in the second-line treatment of HER2-amplified advanced gastric cancer in populations: TyTAN--a randomized, phase III study - PubMed Label: FDA Off Label FDA Approved?: Yes On label?: No 12/15/2024 12:56 PM CDT [facility] EXT Tempus: Potential Therapy 12 Gene: 3430^ERBB2^HGNC Variant: p.D769Y Match Type: snvIndel Match Type Description: ERBB2 p.D769Y Agent: Trastuzumab + Neratinib Drug Class: Combination (Anti-HER2 MAb + Gonzales-HER TKI) Tissue: Breast Cancer Association: Response Evidence Status: Consensus Evidence ID: MOSES KDBarrera Variant: Esem-as-hflduqyh Label: FDA Off Label FDA Approved?: Yes On label?: No 12/15/2024 12:56 PM CDT [facility] EXT Tempus: Potential Therapy 13 Gene: 3430^ERBB2^HGNC Variant: p.V777L Match Type: snvIndel Match Type Description: ERBB2 p.V777L Agent: Trastuzumab + Neratinib Drug Class: Combination (Anti-HER2 MAb + Gonzales-HER TKI) Tissue: Breast Cancer Association: Response Evidence Status: Consensus Evidence ID: MOSES KDBarrera Variant: Qajx-jd-dkzjqwyy Label: FDA Off Label FDA Approved?: Yes On label?: No 12/15/2024 12:56 PM CDT [facility] EXT Tempus: Potential Therapy 14 Gene: N/A Variant: ERBB2 (HER2) Copy number gain; no detection of pathogenic GOF variants in KRAS, NRAS or BRAF Match Type: wildType Match Type Description: ERBB2 (HER2) Copy number gain; no detection of pathogenic GOF variants in KRAS, NRAS or BRAF Agent: Trastuzumab + Lapatinib Drug Class: Combination (Anti-HER2 MAb + Gonzales-HER TKI) Tissue: Colorectal Cancer Association: Response Evidence Status: Consensus Evidence ID: NCCN GEOFFREYN Associated Evidence: Consensus, Colorectal Cancer MSK Associated Evidence: MSK OncoKB, Level 2 Label: FDA Off Label FDA Approved?: Yes On label?: No 12/15/2024 12:56 PM CDT [facility] EXT Tempus: Potential Therapy 15 Gene: 3430^ERBB2^HGNC Variant: p.D769Y Match Type: snvIndel Match Type Description: ERBB2 p.D769Y Agent: Trastuzumab Deruxtecan Drug Class: MAb-Drug Conjugate Tissue: Non-Small Cell Lung Cancer Association: Response Evidence Status: Consensus Evidence ID: NCCN KDB Variant: Pmgy-vr-kywkjxhd Label: FDA Off Label FDA Approved?: Yes On label?: No 12/15/2024 12:56 PM CDT [facility] EXT Tempus: Potential Therapy 16 Gene: 3430^ERBB2^HGNC Variant: p.V777L Match Type: snvIndel Match Type Description: ERBB2 p.V777L Agent: Trastuzumab Deruxtecan Drug Class: MAb-Drug Conjugate Tissue: Non-Small Cell Lung Cancer Association: Response Evidence Status: Consensus Evidence ID: MOSES KDB Variant: Ozcm-wb-ssiwmhne Label: FDA Off Label FDA Approved?: Yes On label?: No 12/15/2024 12:56 PM CDT [facility] EXT Tempus: Potential Therapy 17 Gene: 3430^ERBB2^HGNC Variant: ERBB2 Copy number gain Match Type: cnv Match Type Description: ERBB2 Copy number gain Agent: Trastuzumab Deruxtecan Drug Class: MAb-Drug Conjugate Tissue: Gastric Adenocarcinoma Association: Response Evidence Status: Consensus Evidence ID: NCCN Label: FDA Off Label FDA Approved?: Yes On label?: No 12/15/2024 12:56 PM CDT [facility] EXT Tempus: Potential Therapy 18 Gene: 3430^ERBB2^HGNC Variant: ERBB2 Copy number gain Match Type: cnv Match Type Description: ERBB2 Copy number gain Agent: Capecitabine + Neratinib Drug Class: Combination (Pyrimidine Analog + Gonzales-HER TKI) Tissue: Breast Cancer Association: Response Evidence Status: Consensus Evidence ID: NCCN Label: FDA Off Label FDA Approved?: Yes On label?: No 12/15/2024 12:56 PM CDT [facility] EXT Tempus: Potential Therapy 19 Gene: 3430^ERBB2^HGNC Variant: ERBB2 Copy number gain Match Type: cnv Match Type Description: ERBB2 Copy number gain Agent: Capecitabine + Trastuzumab + Tucatinib Drug Class: Combination (Pyrimidine Analog + Anti-HER2 MAb + HER2 Inhibitor) Tissue: Breast Cancer Association: Response Evidence Status: Consensus Evidence ID: NCCN Label: FDA Off Label FDA Approved?: Yes On label?: No 12/15/2024 12:56 PM CDT [facility] EXT Tempus: Potential Therapy 20 Gene: 3430^ERBB2^HGNC Variant: ERBB2 Copy number gain Match Type: cnv Match Type Description: ERBB2 Copy number gain Agent: Lapatinib + Capecitabine Drug Class: Combination (Gonzales-HER TKI + Pyrimidine Analog) Tissue: Breast Cancer Association: Response Evidence Status: Consensus Evidence ID: NCCN Label: FDA Off Label FDA Approved?: Yes On label?: No 12/15/2024 12:56 PM CDT [facility] EXT Tempus: Potential Therapy 21 Gene: 3430^ERBB2^HGNC Variant: ERBB2 Copy number gain Match Type: cnv Match Type Description: ERBB2 Copy number gain Agent: Trastuzumab + Paclitaxel + Carboplatin Drug Class: Combination (Anti-HER2 MAb + Anti-Tubulin Agent + [place] Agent) Tissue: Uterine Serous Carcinoma Association: Response Evidence Status: Consensus Evidence ID: NCCN Label: FDA Off Label FDA Approved?: Yes On label?: No 12/15/2024 12:56 PM CDT [facility] EXT Tempus: Potential Therapy 22 Gene: 3430^ERBB2^HGNC Variant: ERBB2 Copy number gain Match Type: cnv Match Type Description: ERBB2 Copy number gain Agent: Trastuzumab + Pembrolizumab Drug Class: Combination (Anti-HER2 MAb + Anti-PD-1 MAb) Tissue: Gastric Adenocarcinoma Association: Response Evidence Status: Consensus Evidence ID: NCCN Label: FDA Off Label FDA Approved?: Yes On label?: No 12/15/2024 12:56 PM CDT [facility] EXT Tempus: Potential Therapy 23 Gene: N/A Variant: ERBB2 (HER2) Copy number gain; no detection of pathogenic GOF variants in KRAS, NRAS or BRAF Match Type: wildType Match Type Description: ERBB2 (HER2) Copy number gain; no detection of pathogenic GOF variants in KRAS, NRAS or BRAF Agent: Trastuzumab + Pertuzumab Drug Class: Combination (Anti-HER2 MAbs) Tissue: Colorectal Cancer Association: Response Evidence Status: Consensus Evidence ID: NCCN NCCN Associated Evidence: Consensus, Colorectal Cancer MSK Associated Evidence: MSK OncoKB, Level 2 Label: FDA Off Label FDA Approved?: Yes On label?: No 12/15/2024 12:56 PM CDT [facility] EXT Tempus: Potential Therapy 24 Gene: 3430^ERBB2^HGNC Variant: p.D769Y Match Type: snvIndel Match Type Description: ERBB2 p.D769Y Agent: Zongertinib Drug Class: HER2 Inhibitor Tissue: Non-Small Cell Lung Cancer Association: Response Evidence Status: Consensus Evidence ID: FDA KDB Variant: Kinase Domain Label: FDA Off Label FDA Approved?: Yes On label?: No 12/15/2024 12:56 PM CDT [facility] EXT Tempus: Potential Therapy 25 Gene: 3430^ERBB2^HGNC Variant: p.V777L Match Type: snvIndel Match Type Description: ERBB2 p.V777L Agent: Zongertinib Drug Class: HER2 Inhibitor Tissue: Non-Small Cell Lung Cancer Association: Response Evidence Status: Consensus Evidence ID: FDA KDB Variant: Kinase Domain Label: FDA Off Label FDA Approved?: Yes On label?: No 12/15/2024 12:56 PM CDT [facility] EXT Trial Count 3 12:56 PM CDT [facility] EXT Trial 1: Matched criteria Clinical Trial NCT ID: [id number] Clinical Trial Title: Testing the Safety and Tolerability of the Anti-cancer Drugs Trastuzumab Deruxtecan and Neratinib for Cancers With Changes in the HER2 Gene Clinical Trial URL: https://clinicaltri als.gov/ct2/show/[place] Y82872423 Clinical Phase: Phase 1 Clinical Trial Matches: ERBB2 (HER2) p.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, ERBB2 (HER2) p.V777L mutation, ERBB2 (HER2) amplification Clinical Trial Distance and Location: [address] [place] [address] 12/15/2024 12:56 PM CDT [facility] EXT Trial 2: Matched criteria Clinical Trial NCT ID: [id number] Clinical Trial Title: A Study to Learn More About How Well Treatment With Sevabertinib ([id number]) Tablets Works and How Safe it is in Participants Who Have a Solid Tumor With Mutations of the Human Epidermal Growth Factor Receptor 2 (HER2) Clinical Trial URL: https://clinicaltri als.gov/ct2/show/NC F57916756 Clinical Phase: Phase 2 Clinical Trial Matches: ERBB2 (HER2) p.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, ERBB2 (HER2) p.V777L mutation Clinical Trial Distance and Location: [address] [place] [address] 12/15/2024 12:56 PM CDT [facility] EXT Trial 3: Matched criteria Clinical Trial NCT ID: [id number] Clinical Trial Title: Trifluridine/Tipira cil and Talazoparib for the Treatment of Patients With Locally Advanced or Metastatic Colorectal or Gastroesophageal Cancer Clinical Trial URL: https://clinicaltri als.gov/ct2/show/NC L59365737 Clinical Phase: Phase 1 Clinical Trial Matches: TP53 p.R282W mutation Clinical Trial Distance and Location: [address] [place], [place] 12/15/2024 12:56 PM CDT [facility] EXT xR Result 1 NEGATIVE Negative - This report is being issued to report the results of gene rearrangement and altered splicing analysis from RNA sequencing. No gene rearrangements nor reportable altered splicing events were identified from RNA sequencing. 12/15/2024 12:56 PM CDT [facility] EXT Germline Variant Note No potential germline variants were found in the limited set of genes on which we report. 12/15/2024 12:56 PM CDT [facility] EXT HLA-A Typing A*01:01,A*68:01 12:56 PM CDT [facility] EXT HLA-B Typing B*50:01,B*55:01 12:56 PM CDT [facility] EXT HLA-C Typing C*03:03,C*06:02 12:56 PM CDT [facility] EXT HLA-A Ambiguous Alleles No 12/15/2024 12:56 PM CDT [facility] EXT HLA-B Ambiguous Alleles No 12/15/2024 12:56 PM CDT [facility] EXT HLA-C Ambiguous Alleles No 12/15/2024 12:56 PM CDT [facility] EXT HLA-A Sample Type Normal Only 12/15/2024 12:56 PM CDT [facility] EXT HLA-B Sample Type Normal Only 12/15/2024 12:56 PM CDT [facility] EXT HLA-C Sample Type Normal Only 12/15/2024 12:56 PM CDT [facility] Tissue 12/07/2024 2:2 2 PM CDT Narrative This result has genomic variants that were not included in this document. us Kadeem Marshall P.A.-C., M.S. LAB GENETIC TESTING Final Result Performing Organization Address [facility] de Phone Number [facility] [address], [address] [place] [address], [facility] [phone] [facility] [address], [address] [place] [address] * [facility] xT, Normal - Sent Out Lab (11/30/2024 2:31 PM CDT) [facility] xT Normal, B Collected, Sent to Reference Lab DEFAULT 12/01/2024 9:39 AM CDT [facility] Blood (Blood, Venous) 11/30/2024 2:31 PM CDT 12/01/2024 9:39 AM CDT Narrative [facility] REFERRALS - 12/01/2024 9:39 AM CDT Specimen Information: Specimen ID: [id number] Specimen Type: Blood Specimen Collection Start Date: 11/30/2024 2:31 PM Specimen Received Date: 12/01/2024 9:39 AM Specimen ID: [id number] Specimen Type: Blood Specimen Collection Start Date: 11/30/2024 2:31 PM Specimen Received Date: 12/01/2024 9:40 AM us Kadeem Marshall P.A.-C. M.S. LAB GENETIC TESTING Final Result Performing Organization Address [facility] Co de Phone Number [facility] REFERRALS [address] [place] [address], [facility] [address] [place] [address] * (ABNORMAL) CEA (Carcinoembryonic Antigen) (11/30/2024 2:31 PM CDT) Carcinoembryonic Ag (CEA), S 4.9(H) ng/mL 12/01/2024 9:15 AM CDT [facility] Comment: ----REFERENCE VALUE---- <=3.0 (Non-smokers) Some smokers may have elevated CEA, usually <5.0. ----ADDITIONAL INFORMATION---- The testing method is an immunoenzymatic assay manufactured by [employer] and performed on the [employer] DxI 800. Values obtained with different assay methods or kits may be different and cannot be used interchangeably. Test results cannot be interpreted as absolute evidence for the presence or absence of malignant disease. Blood (Blood, Venous) 11/30/2024 2:31 PM CDT 12/01/2024 8:19 AM CDT us Kadeem Marshall P.A.-C., M.SAlpesh LAB BLOOD ADD-ON Fi nal Result [facility] [address] [place] [address] [facility] [address] [place] [address] from Last 3 Months Additional Health Concerns Infection Onset Date Last Indicated Protective Environment 06/02/2024 Insurance [facility] Advance Directives For more information, please contact: [phone] Documents on File Type Date Recorded Patient Design Center Consultant Expl anation Advance Directives 10/22/2023 9:35 AM Leo moyer HCPOA/ADVOCATE/AGENT/REPR ESENTATIVE/SURROGATE * Full Code (Latest Code Status on File) Date Activated Date Inactivated Comments 2024 3:16 PM 04/17/2024 3:57 PM Question Answer Comments Full Code: Discussed * Full Code Date Activated Date Inactivated Comments 09/09/2023 11:48 PM 09/16/2023 4:05 PM Question Answer Comments Full Code: Discussed * Full Code Date Activated Date Inactivated Comments 09/04/2023 5:22 PM 09/07/2023 8:13 PM Question Answer Comments Full Code: Not Discussed Due to: Patient not available * Full Code Date Activated Date Inactivated Comments 05/27/2023 4:28 PM 06/03/2023 4:51 PM Question Answer Comments Full Code: Discussed * Full Code Date Activated Date Inactivated Comments 07/30/2022 5:32 AM 08/03/2022 1:16 PM Question Answer Comments Full Code: Discussed Healthcare Agents on File Name Relationship Healthcare Agent [facility] Lazaro Kwon [facility] Health Care Agent [email or web address] Leo Fan [facility] Health Care Agent [email or web address] Care Teams Maintenance And Utilities Supervisor Relationship Specialty Start Date End Date Elsewhere, Pcp PCP - General Internal Medicine 03/08/24
--- OUTSIDE RECORDS SUMMARY | 2025-02-22 15:43 | XMS_ITS ---
Author Organization [facility] Address [address] [place] [address] Care Team Providers Care Padded Box Sewer Name Role Phone Elsewhere, Pcp Primary Care Provider Unavailabl e Active Problems * This document contains information received from the source organization and may not represent a complete record from that organization. 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 Patient was instructed to discontinue all wboh-rnt-[id number] vitamins and supplements, aspirin and NSAID containing products until after surgery is complete. If she needs anything for pain she was instructed to use Tylenol. 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 on 02/11/2024 Overview (07/20/2022): Added automatically from request for surgery [id number] Assessment & Plan (07/21/2022 11:15 AM CDT): [...] Had pos FIT and fragments on path Current Treatment and Therapy Plans FOLFIRI + Bevacizumab ( Fluorouracil / Leucovorin / Irinotecan / Bevacizumab )* Plan Start Date:10/15/2023 Plan Provider:Preet Segura M.D. 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 Vascular Access Patency - Implanted Vascular Access Device (IVAD) Venous Non-Valved* Plan Start Date:10/24/2023 Linked Problems Malignant Neoplasm Of Cecum (HCC) Treatment Medications No medications scheduled. Past Treatment and Therapy Plans Flushes/Hydration Plan Name Start Date Discontinue Date Treatment Medications Discontinue Reason Plan Provider Vascular Access Patency - Implanted Vascular Access Device (IVAD) Venous Non-Valved 11/09/2022 10/24/2023 No medications scheduled. Amendment Change - Hem/Onc Therapy Plan 1 Plan Name Start Date Discontinue Date Treatment Medications Discontinue Reason Plan Provider Hydration 10/12/2024 11/19/2024 No medications scheduled. Therapy Complete Preet Segura M.D. Hematology / Oncology Treatment 1 Plan Name Start Date Discontinue Date Treatment Medications Discontinue Reason Plan Provider Cycles FOLFOX6 ( Fluorouracil / Leucovorin / Oxaliplatin ) ( GI ) 10/15/2023 fluorouraciL (AdruciL)fluoro uraciL (AdruciL) IVPB in 230 mL (c-series) (AdruciL)leucov denis 100 mg IVPB in D5W 100 mL (20 mg/mL)oxaliplat in (Eloxatin)oxali platin (Eloxatin) IVPB in 250 mL (Eloxatin) Therapy Complete Preet Segura M.D. 2 of 12 cycles started Infusion Therapy 1 Plan Name Start Date Discontinue Date Treatment Medications Discontinue Reason Plan Provider Hydration 10/25/2024 11/19/2024 No medications scheduled. Therapy Complete Pia Forrester APRN, C.N.P., M.S. Hydration 12/10/2023 10/05/2024 No medications scheduled. Unlisted Preet Segura M.D. Lifetime Dose Tracking * Chemical Lifetime Dose Automatic Entry Manual Entr y Radiation 9 mGy 9 mGy 0 mGy Fluoro Time 1.2 minutes 1.2 minutes 0 minutes DAP (uGy-m2) 219.52 uGy-m2 219.52 uGy-m2 0 uGy-m2 Resolved Problems Problem Noted Date Diagnosed Date Resolved Date Allergy Penicillin Antibioti c Personal History 07/21/2022 05/17/2023 Abnormal Findings On Diagnos tic Imaging Of Other Specified Body Structures 10/01/2017 07/22/19 23 Overview (07/21/2022): Angiogram from 09/28/2017 showed 30% stenosis proximal left anterior descending and otherwise normal angiogram.
--- OUTSIDE RECORDS SUMMARY | 2025-02-22 15:44 | XMS_ITS | Clinical Summary ---
Author Organization [facility] Address [address] [place] [address] Care Team Providers Care Process Analyst Name Role Phone Charla Carrington MD [facility] Unavailable Allergies Active Allergy Reactions Criticality Noted Date Comments Acyclovir Other - Describe In Comment Field 04/01/2023 Explosive diarrhea Doxycycline Rash 08/12/2017 Lisinopril Cough 08/09/2017 Medications * This document contains information received from the source organization and may not represent a complete record from that organization. gabapentin (NEURONTIN) 100 mg capsule Take 1 capsule (100 mg total) by mouth 2 (two) times a day for 10 days, THEN 2 capsules (200 mg total) at bedtime for 10 days.* Active loperamide (IMODIUM) 2 mg capsule Take 2 mg by mouth 4 times daily if needed. 5 Active LORazepam (ATIVAN) 0.5 mg tab Take 0.5 mg by mouth 2 times daily if needed. 5 Active Magnesium Oxide 500 mg cap Take by mouth. 3 Active oxyCODONE (ROXICODONE) 5 mg immediate release tablet 5 Active penciclovir (DENAVIR) 1 % cream Apply 1 Application topically to affected area(s) every 2 hours. 4 Active NaCl 0.9% IV solution Inject 20 mL/hr intravenous. 5 Active cholecalcifero l (Vitamin D) 1,000 unit capsule Take 2 Capsules (2,000 units) by mouth once daily. 4 02/06/20 25 Discontin ued(*Med complete/ Regimen complete/ Level of care change) calcium carbonate 500 mg calcium (1,250 mg) chewable tablet Chew 500 mg by mouth one time. 3 02/06/20 25 Discontin ued(*Med complete/ Regimen complete/ Level of care change) cholecalcifero l 1,000 unit capsule Take 1,000 units by mouth once daily. 4 02/06/20 25 Discontin ued(*Med complete/ Regimen complete/ Level of care change) Active Problems Problem Noted Date Diagnosed Date Absence of both cervix and uterus, acquired 06/2022 Overview (11/26/2022): Phyllis 2010 Obesity with body mass index 30 or greater 08/0208/07/2022 Adenocarcinoma of cecum 07/07/2022 Overview (07/07/2022): Colonoscopy 06/2022 cecal cancer, referral to [facility] Abnormal angiogram 10/01/2017 Overview (10/01/2017): Angiogram from 09/28/2017 showed 30% stenosis proximal left anterior descending and otherwise normal angiogram. Chest pain 09/27/2017 Abnormal stress test 09/27/2017 Overview (09/27/2017): -Stress echocardiogram 09/14/2017 Basal inferoseptal, basal inferolateral and basal inferior wall hypokinesis Shortness of breath 09/27/2017 HTN (hypertension) 08/02/2017 Adenomatous colon polyp 10/14/2015 Overview (10/14/2015): Colonoscopy 09/2015 polyps repeat in 3 years Atrophic vaginitis 07/04/2014 DERMATITIS/NONSPECIFIC 12/28/2010 ALLERGIC RHINITIS Encounters Date Type Department Care Team Description 02/14/2025 2:00 PM CDT Telemedicine [facility] [address] [place] [phone] Tarun Vera MBBS Follow Up 02/14/2025 Medical Messaging [facility] [address] [place] [address] Charla Carrington MD New Referrals for [place] 02/09/2025 Travel 02/05/2025 2:45 PM CDT Orders Only [facility] [address] [place] [address] Lab, [place] [facility] 02/05/2025 2:20 PM CDT Office Visit [facility] [address] [place] [address] Charla Carrington MD ER Follow up (from [facility]) 02/05/2025 Travel 02/02/2025 Travel 01/31/2025 Travel 12/27/2024 4:00 PM CDT Telemedicine [facility] [address] [place] [phone] Tarun Vera MBBS 12/25/2024 Travel 12/21/2024 10:15 AM CDT Orders Only [facility] [address] [place] [address] Lab, [place] [facility] 12/21/2024 Travel 12/16/2024 Travel 11/24/2024 Telephone [facility] [address] [place] [address] [address], [facility] Referral (Adenocarcinoma of cecum) from Last 3 Months Immunizations Immunization Administration Dates Next Due Hepatitis B, Unspecified 09/19/1998,03/26,02/09/1998,1997 Td (Age >=7 Years) 03/10/2002 Td, Preservative Free (age > = 7 Years) 03/10/2002 Tdap 06/20/2014 Family History Medical History Relation Name Comments Good Health Brother Cancer-prostate Father Heart Disease Father of a defe ctive aortic valve at 80 Hyperlipidemia Father Good Health Mother Good Health Sister 1 Other Sister 2 Psoriasis Cancer-breast No Family History Cancer-colon No Family History Cancer-ovarian No Family History Relation Name Status Comments Brother Father Mother Alive Sister 1 Sister 2 Social History Tobacco Use Types Packs/Day Years Used Date Smoking Tobacco: Former Cigarettes 0.1 2 0 04/26/1994 - 04/26/1996 Passive Smoke Exposure: Never Smokeless Tobacco: Never Tobacco Cessation:Counseling Given: Not Answered Comments:she smoked very little when she smoked in her twenties Alcohol Use Standard Drinks/Week Comments No 0 (1 standard drink = 0.6 oz pur e alcohol) occasionally has PHQ-2 Answer Date Recorded PHQ-2 TOTAL SCORE 0 10/16/2024 Social Connections Answer Date Recorded Do you often feel lonely or isolated from those around you? 0 10/11/2024 Alcohol Use Answer Date Recorded How often do you have a drink containing alcohol ? 0 02/05/2025 Average Number of Drinks Not on file 025 How often do you have five or more drinks on one occasion? 0 02/05/2025 Financial Resource Strain Answer Date R ecorded Difficulty of Paying Living Expenses 3 10/11/2024 Difficulty of Paying Living Expenses Not on file 10/11/2024 Food Insecurity Answer Date Recorded Do you worry your food will run out before you are able to buy more? 1 10/11/2024 Transportation Needs Answer Date Record ed Does lack of transportation keep you from medica l appointments? 1 10/11/2024 Does lack of transportation keep you from work, meetings or getting things that you need? 1 10/11/2024 Housing Stability Answer Date Recorded What is your housing situation today? 1 10/11/2024 Utilities Answer Date Recorded Do you have trouble paying f or utilities (for example, heat, electricity, water, phone)? 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 Not on file Not on file Not on file Obstetrics History Last Filed Vital Signs Vital Sign Reading Time Taken Comments Blood Pressure 153/91 02/05/2025 2:19 PM CDT Pulse 72 02/05/2025 2:19 PM CDT Temperature 36.6 C (97.8 F) 02/05/2025 2:19 PM CDT Respiratory Rate 16 07/03/2022 10:10 AM RIGGING FOREMAN Oxygen Saturation 98% 02/05/2025 2:19 PM CDT Inhaled Oxygen Concentration - - Weight 68 kg (150 lb) 02/05/2025 2:19 PM CDT Height 158 cm (5' 2.21) 02/05/2025 2:19 PM CDT Body Mass Index 27.25 02/05/2025 2:19 PM CDT Plan of Treatment Upcoming Encounters Date Type Department Care Team (Late st Contact Info) Description 02/26/2025 9:10 AM RIGGING FOREMAN Office Visit [facility] [address] [place] [address] Charla Carrington MD [address] [place] [address] Health Maintenance Due Date Last Done Comments HIV for age 15-65 1975 Pneumococcal series for age 50+ (1 of 2 - PCV) 1979 Zoster (shingles) series for age 50+ (1 of 2) 1979 RSV vaccine for adults or (1 - Risk 60-74 years 1-dose series) 2020 Colonoscopy through age 75 07/04/202307/03, 07/03/2022, 07/03/2022, Additional history exists Mammogram for age 45-75 03/02/2024 03/02/20, 03/05/2022, 02/25/2022, Additional history exists Tetanus booster 06/20/2024 06/20/2014, 02/24, 03/10/2002 Influenza Vaccine (#1) 2024 Depression screening for age 12+ 10/16/2025 10/16/2024, 08/12/2022, 03/12/2022, Additional history exists BMI (ht and wt on same day) for age 18+ 02/05/2026 02/05/2025, 10/16/2024, 03/11/2022, Additional history exists Lipids for age 45-75 03/11/2027 03/11/2022, 09/10/2017, 08/09/2015 Hepatitis B series for 19+ Completed 09/19, 04/04/1998, 02/09/1998, Additional history exists Hepatitis C screening for ag e 18-79 Completed 03/11/2022 Procedures Procedure Name Priority Date/Time Associated Diagnosis Comments XR MAMMO ИРИНА BILAT SCREEN Routine 03/02/2023 4:38 PM RIGGING FOREMAN Visit for screening mammogram COLONOSCOPY SCREENING Routine 07/03/2022 8:25 AM RIGGING FOREMAN History of colon polyps ANTI HCV Routine 03/11/2022 5:05 PM RIGGING FOREMAN Need for hepatitis C screening test LIPID PANEL W REFLEX MEASURED LDL Routine 03/11/2022 5:05 PM RIGGING FOREMAN Hyperlipidemia, unspecified hyperlipidemia type from Last 3 Months or Most Recently Relevant to Health Maintenance Results * XR MAMMO ИРИНА BILAT SCREEN (03/02/2023 4:38 PM RIGGING FOREMAN) Anatomical Region Laterality Modality BREASTS, Breast Left, Breast Right Bilateral Mammography Impressions 03/03/2023 2:00 PM RIGGING FOREMAN There is no radiographic evidence for malignancy. Recommend annual mammograms. MAMMOGRAM ASSESSMENT: ACR 1 Negative PATIENTS: You will also receive a letter with your examination results in an easy to read format. If you have questions about your results, please contact your referring provider. Narrative 03/03/2023 2:00 PM RIGGING FOREMAN For Patients: As a result of the Century Cures Act, medical imaging exams and procedure reports are released immediately into your electronic medical record. You may view this report before your referring provider. If you have questions, please contact your health care provider. XR MAMMO ИРИНА BILAT SCREEN [[id number]] CLINICAL HISTORY: This is an asymptomatic 62 y.o. patient. INDICATION FOR EXAM: Mammogram Screening. TECHNIQUE: CC & MLO views were obtained. This study was evaluated with the assistance of Computer-Aided Detection. Breast Tomosynthesis was used in interpretation. COMPARISON FILM: Yes 02/25/22 [facility] 08/02/17 [facility] FINDINGS: The breasts are heterogeneously dense, which may obscure small masses. There are no dominant masses, suspicious micro calcifications or areas of architectural distortion. us Charla Carrington MD MAMMO Final Resul t * COLONOSCOPY (07/03/2022 8:39 AM RIGGING FOREMAN) 07/03/2022 8:39 AM RIGGING FOREMAN Narrative Transcriptions Leo Marte MD - 07/03/2022 9:56 AM CST Patient Name: Hayley Kwon Procedure Date: 07/03/2022 Gender: Female Date of : 1960 Admit Type: Outpatient Procedure: Colonoscopy Proceduralist: Leo Marte MD , Maia Dye, GALLITO(Nurse), Daysi Redman (Nurse) Referring MD: Charla Carrington Indications/Pre-Op Diagnosis: High risk colon cancer surveillance:Personal history of colonic polyps, Last colonoscopy: September 2015 Medications: Fentanyl 100 micrograms IV, Midazolam 3 mgIV, The level of sedation administered wasmoderate Procedure Description: The patient had risks, benefits and alternatives explained to andgave informed consent. The patient had a stable cardiopulmonary status and judged an adequate candidate for conscious sedation. The endoscope [id number] was passed through the anus andadvanced to the cecum, identified by appendiceal orifice and ileocecalvalve. Complications: No immediate complications. Estimated Blood Loss & Specimen: Estimated blood loss: none. Specimen collected - Yes and sent to Laboratory Findings: The perianal and digital rectal examinations were normal. An ulcerated non-obstructing mass was found in the cecum. The mass measured two cm in length. In addition, its diameter measured twentymm. Oozing was present. Biopsies were taken with a cold forceps for histology. Non-bleeding internal hemorrhoids were found during retroflexion. The hemorrhoids were mild. The exam was otherwise without abnormality on direct and retroflexion views. Impressions/Post-Op Diagnosis: - Rule out malignancy, tumor in the cecum. Biopsied. - Non-bleeding internal hemorrhoids. - The examination was otherwise normal on direct and retroflexionviews. Recommendation: - Patient has a contact number available for emergencies. The signsand symptoms of potential delayed complications were discussed with the patient. Return to normal activities tomorrow. Written discharge instructions were provided to the patient. - Resume previous diet. - Continue present medications. - Repeat colonoscopy is recommended. The colonoscopy date will be determined after pathology results from today's exam become available for review. - Refer to a colo-rectal surgeon at appointment to be scheduled. Moderate Sedation: A time out was performed before the procedure. Moderate (conscious) sedation was administered by the endoscopy nurse and supervised bythe endoscopist. The following parameters were monitored: oxygensaturation, heart rate, blood pressure, EKG, CO2, respiratory rate, adequacy of pulmonary ventilation and reponse to care. Please refer to the patient's medical record flowsheets and nursing notes for moderate sedation details. Total physician intraservice time was 15 minutes. Leo Marte MD 07/03/2022 9:56:47 AM This report has been signed electronically. Note Initiated On: 07/03/2022 8:39 AM Procedure Code(s): --- Professional --- 09256, Colonoscopy, flexible; with biopsy, single or multiple Diagnosis Code(s): --- Professional --- Z86.010, Personal history of colonicpolyps D49.0, Neoplasm of unspecified behavior of digestive system K64.8, Other hemorrhoids CPT copyright 2020 [employer]. All rights reserved. The codes documented in this report are preliminary and upon dope mixer reviewmay be revised to meet current compliance requirements. Scope In: 9:25:46 AM Scope Withdrawal Time 0 hours 9 minutes 43 seconds Scope Out: 9:38:45 AM us Leo Marte MD PROCEDURE ORD Final Res ult * (ABNORMAL) LIPID PANEL W REFLEX MEASURED LDL (03/11/2022 5:05 PM RIGGING FOREMAN) CHOLESTEROL,TOTAL 271(H) 100 - 199 mg/dL 03/14/2022 3:15 AM RIGGING FOREMAN [facility] TRIGLYCERIDES 149 <150 mg/dL 03/14/2022 3:15 AM RIGGING FOREMAN [facility] HDL CHOLESTEROL 60 >40 mg/dL 3:15 AM RIGGING FOREMAN [facility] NON-HDL CHOLESTEROL 211(H) <145 mg/dl 03/14/2022 3:15 AM RIGGING FOREMAN [facility] CHOL/HDL RATIO 4.52(H) <4.50 03/14/2022 3:15 AM RIGGING FOREMAN [facility] LDL CHOLESTEROL 181(H) <=130 mg/dL 03/14/2022 3:15 AM RIGGING FOREMAN [facility] VLDL CHOLESTEROL 30 <=30 mg/dL 03/14/2022 3:15 AM RIGGING FOREMAN [facility] PROVIDER ORDERED STATUS RANDOM 03/14/2022 3:15 AM RIGGING FOREMAN [facility] Blood BLOOD SPECIMEN / Unknown Venipuncture / Unknown 03/11/2022 5:05 PM RIGGING FOREMAN 03/11/2022 5:05 PM RIGGING FOREMAN us Charla Carrington MD CHEMISTRY Final Resul t [facility] [address] [place] [address], [place] * ANTI HCV (03/11/2022 5:05 PM RIGGING FOREMAN) HEPATITIS C ANTIBODY Non-React ravin Non-React ravin 03/14/2022 3:35 AM RIGGING FOREMAN [facility] Comment:Antibodies to HCV no t detected; does not exclude the possibility of exposure to HCV. Blood BLOOD SPECIMEN / Unknown Venipuncture / Unknown 03/11/2022 5:05 PM RIGGING FOREMAN 03/11/2022 5:05 PM RIGGING FOREMAN us Charla Carrington MD SEND OUTS Final Resul t [facility] [address] [place] [address], [place] from Last 3 Months or Most Recently Relevant to [place] [id number] [facility] [employer] CHOICE Advance Directives * Full Code (Latest Code Status on File) Date Activated Date Inactivated Comments 09/28/2017 10:39 AM 09/28/2017 1:55 PM Care Teams Process Analyst Relationship Specialty Start Date End Date Charla Carrington MD [address] [place] [address] PCP - General Family Practice 07/03/22 Sunshine Leo, RN [address] [place] [phone] Nurse Navigator - Oncology Registered Nurse 12/01/24
--- OUTSIDE RECORDS SUMMARY | 2025-02-22 15:44 | XMS_ITS | Encounter Summary ---
Author Organization [facility] Address [address] [place] [address] Care Team Providers Care Fire Prevention Specialist Name Role Phone Elsewhere, Pcp Primary Care Provider Unavailabl e Encounter Details Date Type Department Care Team (Late st Contact Info) Description 01/27/2025 Clinical Communication Department of Infusion Therapy in [place], [place] [address] [place] [phone] Kevin Tuttle, MI-, R.N. Social History Tobacco Use Types Packs/Day Years Used Date Smoking Tobacco: Never Passive Smoke Exposure: Never Smokeless Tobacco: Never Alcohol Use Standard Drinks/Week Comments Not Currently 0 (1 standard drink = 0.6 oz pur e alcohol) [facility] Utilities Answer Date Recorded In the past 12 months has [employer], gas, oil, or water [employer] threatened to shut off services in your [...] your living situation today? I have a [facility] place to live 2024 Education Answer [...] AM CDT Lab Department of Oncology in [place], [place] [address] [place] [phone] Kadeem Marshall P.A.-C., M.S. [address] [place] [phone] 02/23/2025 9:20 AM CDT Office Visit Department of Oncology in [place], [place] [address] [place] [phone] Kadeem Marshall P.A.-C., M.S. [address] [place] [phone] 02/23/2025 10:00 AM CDT Infusion Department of Oncology in [place], [place] [address] [place] [phone] Kadeem Marshall P.A.-C., M.S. [address] [place] [phone] 03/07/2025 10:20 AM ACCOUNT SOLUTIONS ANALYST Appointment Department of Laboratory Medicine in [address] [phone] Kadeem Marshall P.A.-C., M.S. [address] [place] [phone] 03/08/2025 8:00 AM ACCOUNT SOLUTIONS ANALYST Office Visit Department of Oncology in [place], [place] [address] [place] [phone] Kadeem Marshall P.A.-C., M.S. [address] [place] [phone] 03/08/2025 8:45 AM ACCOUNT SOLUTIONS ANALYST Infusion Department of Oncology in [place], [place] [address] [place] [phone] Kadeem Marshall P.A.-C., M.S. [address] [place] [phone] documented as of this encounter Visit Diagnoses Not on filedocumented in this encounter Additional Health Concerns Infection Onset Date Last Indicated Resolved Time Protective Environment 06/02/2024 06/02/2024 documented as of this encounter Care Teams Fire Prevention Specialist Relationship Specialty Start Date End Date Elsewhere, Pcp PCP - General Internal Medicine 03/08/24 documented as of this encounter
--- OUTSIDE RECORDS SUMMARY | 2025-02-22 15:44 | XMS_ITS | Encounter Summary ---
Author Organization [facility] Address [address] [place] [phone] Care Team Providers Care Wood Tank Builder Name Role Phone Elsewhere, Pcp Primary Care Provider Unavailabl e Encounter Details Date Type Department Care Team (Late st Contact Info) Description 02/01/2025 Orders Only Department of Oncology in [place], [place] [address] [place] [phone] Kadeem Marshall, P.Jessica.-C., M.S. [address] [place] [phone] Social History Tobacco Use Types Packs/Day Years Used Date Smoking Tobacco: Never Passive Smoke Exposure: Never Smokeless Tobacco: Never Alcohol Use Standard Drinks/Week Comments Not Currently 0 (1 standard drink = 0.6 oz pur e alcohol) [facility] Utilities Answer Date Recorded In [...] your living situation today? I have a [facility] place to live 2024 Education Answer [...] AM CDT Lab Department of Oncology in [place], [place] [address] [place] [phone] Kadeem Marshall P.A.-C., M.S. [address] [place] [phone] 02/23/2025 9:20 AM CDT Office Visit Department of Oncology in [place], [place] [address] [place] [phone] Kadeem Marshall P.A.-C., M.S. [address] [place] [phone] 02/23/2025 10:00 AM CDT Infusion Department of Oncology in [place], [place] [address] [place] [phone] Kadeem Marshall P.A.-C., M.S. [address] [place] [phone] 03/07/2025 10:20 AM REHABILITATION NURSE Appointment Department of Laboratory Medicine in [address] [phone] Kadeem Marshall P.A.-C., M.S. [address] [place] [phone] 03/08/2025 8:00 AM REHABILITATION NURSE Office Visit Department of Oncology in [address] [phone] Kadeem Marshall P.A.-C., M.S. [address] [place] [phone] 03/08/2025 8:45 AM REHABILITATION NURSE Infusion Department of Oncology in [address] [phone] Kadeem Marshall P.A.-C., M.S. [address] [place] [phone] documented as of this encounter Visit Diagnoses Not on filedocumented in this encounter Additional Health Concerns Infection Onset Date Last Indicated Resolved Time Protective Environment 06/02/2024 06/02/2024 documented as of this encounter Care Teams Wood Tank Builder Relationship Specialty Start Date End Date Elsewhere, Pcp PCP - General Internal Medicine 03/08/24 documented as of this encounter
--- OUTSIDE RECORDS SUMMARY | 2025-02-22 15:44 | XMS_ITS | Encounter Summary ---
Author Organization [facility] Address [address] [place] [address] Care Team Providers Care Private Branch Exchange Service Advisor Name Role Phone Elsewhere, Pcp Primary Care Provider Unavailabl e Encounter Details Date Type Department Care Team (Late st Contact Info) Description 02/01/2025 Orders Only Department of Infusion Therapy in [address] [phone] Katherine King, R.N. Malignant Neoplasm Of Cecum (HCC) (Primary Dx) Social History Tobacco Use Types Packs/Day Years Used Date Smoking Tobacco: Never Passive Smoke Exposure: Never Smokeless Tobacco: Never Alcohol Use Standard Drinks/Week Comments Not Currently 0 (1 standard drink = 0.6 oz pur e alcohol) [facility] Utilities Answer Date Recorded In the past 12 months has [facility] [employer], gas, oil, or water [employer] threatened to shut off services in your [...] your living situation today? I have a [facility] place to live 2024 Education Answer [...] AM CDT Lab Department of Oncology in [place], [place] [address] [place] [phone] Kadeem Marshall P.A.-C., M.S. [address] [place] [phone] 02/23/2025 9:20 AM CDT Office Visit Department of Oncology in [place], [place] [address] [place] [phone] JoKadeem venegas P.A.-C., M.S. [address] [place] [phone] 02/23/2025 10:00 AM CDT Infusion Department of Oncology in [place], [place] [address] [place] [phone] Kadeem Marshall P.A.-C., M.S. [address] [place] [phone] 03/07/2025 10:20 AM PRESCHOOL PRINCIPAL Appointment Department of Laboratory Medicine in [address] [phone] Kadeem Marshall P.A.-C., M.S. [address] [place] [phone] 03/08/2025 8:00 AM PRESCHOOL PRINCIPAL Office Visit Department of Oncology in [address] [phone] Kadeem Marshall P.A.-C., M.S. [address] [place] [phone] 03/08/2025 8:45 AM PRESCHOOL PRINCIPAL Infusion Department of Oncology in [address] [phone] Kadeem Marshall P.A.-C., M.S. [address] [place] [phone] documented as of this encounter Visit Diagnoses Diagnosis Malignant Neoplasm Of Cecum (HCC)- Primary documented in this encounter Additional Health Concerns Infection Onset Date Last Indicated Resolved Time Protective Environment 06/02/2024 06/02/2024 documented as of this encounter Care Teams Private Branch Exchange Service Advisor Relationship Specialty Start Date End Date Elsewhere, Pcp PCP - General Internal Medicine 03/08/24 documented as of this encounter
[2025-02-22 15:47] VITALS: BP 157/83; PULSE 90; RESP 16; TEMP 36.4; O2SAT 98; BMI 26.2
--- NOTE | 2025-02-22 16:43 | ED_ITS ---
HPI - Wound/Laceration General Date Seen: 02/22/25 Chief Complaint: Laceration/Wound Stated Complaint: burn on stomach Time Seen by Provider: 02/22/25 16:27 Source: patient Mode of arrival: ambulatory Limitations: no limitations History of Present Illness HPI narrative: Patient is a 64-year-old female presenting to the emergency department for a wound on her left lower abdomen. She states this occurred from thermal treatment for her metastatic colon cancer. Occurred about 2 or 3 weeks ago initially had a large blister. She states the blister has been healing but there has been a black scab in the middle for the past 2 and half weeks. Denies any abdominal pain, fevers, chills, weakness. No other concerns noted at this time. Initially she went to urgent care who spoke to the general surgeon on- call was recommended the patient follow-up with an outpatient clinic either the wound clinic or the general surgery clinic. The patient tried to go toher general Clinic and was sent to the emergency department Related Data Home Medications ?Medication ?Instructions ?Recorded ?Confirmed peg 400-propylene glycol (PF) 0.4 1 drp ophthalmic (ey e) TID 11/09/22 02/22/25 %-0.3 % eye drops in a dropperette (Systane (PF)) cholecalciferol (vitamin D3) 25 25 mcg PO DAILY 02/22/25 mcg (1,000 unit) capsule (Vitamin D3) Allergies Allergy/AdvReac Type Severity Reaction Status Date / Time doxycycline Allergy Intermediate Rash Verified 02/22/25 14:35 codeine AdvReac Intermediate Nausea Verified 02/22/25 14:35 lisinopril AdvReac Unknown Cough Verified 02/22/25 14:35 acyclovir AdvReac Verified 02/22/25 14:35 Review of Systems Narrative: Pertinent systems reviewed and were negative unless stated in HPI PFSH PFS Medical History Herpes labialis ?B00.1 - Herpesviral vesicular dermatitis (ICD-10) Colon cancer ?C18.9 - Malignant neoplasm of colon, unspecified (ICD-10) Hypertension ?I10 - Essential (primary) hypertension (ICD-10) Dyslipidemia ?E78.5 - Hyperlipidemia, unspecified (ICD-10) Class 1 obesity ?E66.9 - Obesity, unspecified (ICD-10) Chronic gastroesophageal reflux disease ?K21.9 - Gastro-esophageal reflux disease without esophagitis (ICD-10) Allergic rhinitis ?J30.9 - Allergic rhinitis, unspecified (ICD-10) Recurrent sinusitis ?J32.9 - Chronic sinusitis, unspecified (ICD-10) Polyp of colon (10/14/15) ?K63.5 - Polyp of colon (ICD-10) History of vitamin D deficiency ?Z86.39 - Personal history of other endocrine, nutritional and metabolic disease (ICD-10) History of coronary angiogram (09/28/17) ?Z98.890 - Other specified postprocedural states (ICD-10) History of cardiovascular stress test (09/14/17) ?Z92.89 - Personal history of other medical treatment (ICD-10) Surgical History H/O laparoscopy ?Z98.890 - Other specified postprocedural states (ICD-10) H/O partial resection of colon ?Z90.49 - Acquired absence of other specified parts of digestive tract (ICD- 10) History of total hysterectomy with removal of both tubes and ovaries (2010) ?Z90.710 - Acquired absence of both cervix and uterus (ICD-10) ?Z90.722 - Acquired absence of ovaries, bilateral (ICD-10) ?Z90.79 - Acquired absence of other genital organ(s) (ICD-10) History of colonoscopy with polypectomy (10/11/15) ?Z98.890 - Other specified postprocedural states (ICD-10) ?Z86.010 - Personal history of colonic polyps (ICD-10) History of 2 sections (1988) ?Z98.891 - History of uterine scar from previous surgery (ICD-10) Family History Maternal Grandmother Stroke Diabetes Family/Other Prostate cancer Gastric cancer Father Heart disease Social History 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 Exercises 3-4 times per week-gym and walks, nonsmoker, no EtOH. What is your current living situation?: I presently have a place to live Problems where you live: no known problems Problems where you live details: N/A In the past 12 months, utilities in danger of being shut off: no In past 12 months, lack of transportation kept you from medical appts, meetings, work, or getting things needed for daily living: no In the past 12 mos, have been you worried that your food would run out before you had money to buy more?: never true In the past 12 mos, the food you bought just didn't last and you didn't have money to buy more?: never true Smoking Status: Never smoker Do you use any of these nicotine containing products: None Second hand tobacco smoke exposure: No How often do you have a drink containing alcohol: never How often do you have six or more drinks on one occasion: Never AUDIT-C Alcohol total score: 0 Non-prescribed substance use: denies use Caffeine: No How often does anyone, including family, friends and others, physically hurt you : never How often does anyone, including family, friends and others, insult or talk down to you: never How often does anyone, including family, friends and others, threaten you with harm: never How often does anyone, including family, friends and others, scream or curse at you: never service: No Exam Narrative: Exam Narrative: Const: Well-nourished, Well-developed, in no distress Eyes: No conjunctival injection, and symmetrical lids HENT: Atraumatic external nose and ears. Moist mucous membranes. GI: Nontender/Nondistended, No rebound or guarding. MSK:Extremities w/o deformity, Normal Active ROM Skin: Warm, Dry. 4 cm by 3 cm area of the healing wound with a central quarter- size scab Neuro: Normal Muscle tone, No focal neurological deficits. Psych: Awake, Alert, & Oriented x3. Appropriate mood and affect. Const: Vital Signs, click to edit/add: Vital Signs - 24 hr 02/22/25 15:47 Temperature 97.6 F Pulse Rate [Pulse Oximeter] 90 Respiratory Rate 16 Blood Pressure [Ri ght Upper Arm] 157/83 H Pulse Oximetry 98 Oxygen Delivery Me thod Room Air Course Vital Signs Vital signs: Initial Vital Signs Temperature 97.6 F 02/22/25 15:47 Temperature Source Temporal Artery Scan 02/22/25 15:47 Pulse Rate 90 02/22/25 15:47 Respiratory Rate 16 02/22/25 15:47 Blood Pressure 157/83 H 02/22/25 15:47 Blood Pressure Mean 107 H 02/22/25 15:47 Blood Pressure Position Sitting 02/22/25 15:47 Pulse Oximetry 98 02/22/25 15:47 Oxygen Delivery Method Room Air 02/22/25 15:47 Vital Signs Temperature 97.6 F 02/22/25 15:47 Pulse Rate 90 02/22/25 15:47 Respiratory Rate 16 02/22/25 15:47 Blood Pressure 157/83 H 02/22/25 15:47 Pulse Oximetry 98 02/22/25 15:47 Oxygen Delivery Method Room Air 02/22/25 15:47 Temperature 97.6 F 02/22/25 15:47 Pulse Rate 90 02/22/25 15:47 Respiratory Rate 16 02/22/25 15:47 Blood Pressure 157/83 H 02/22/25 15:47 Pulse Oximetry 98 02/22/25 15:47 Oxygen Delivery Method Room Air 02/22/25 15:47 MDM - Wound/Laceration MDM Narrative Medical decision making narrative: Patient is a 64-year-old female presenting to emergency department for a wound in her left lower abdomen. Per urgent care note patient's post follow-up outpatient with even the wound clinic or the general surgery clinic. I did put in a referral for the Wound Clinic. I see no signs of infection she has no abdominal pain. She will be discharged. Discharge Plan Discharge Clinical Impression: Wound, open, abdominal wall, anterior Qualifiers: Encounter type: initial encounter Qualified Code(s): S31.109A - Unspecified open wound of abdominal wall, unspecified quadrant without penetration into peritoneal cavity, initial encounter Patient Disposition: Home, Self-Care Condition: Stable Additional Instructions: I did send in a referral for the Wound Clinic. They should call you tomorrow to set up an appointment. You could also try calling the general surgery clinic at [phone] to set up an outpatient appointment if the wound clinic appointment will take too long to get into. Return to emergency department for new or worsening symptoms. Prescriptions: No Action Systane (PF) 0.4-0.3 % dropperette 1 drp ophthalmic (eye) TID cholecalciferol (vitamin D3) [Vitamin D3] 25 mcg (1,000 unit) capsule 25 mcg PO DAILY Follow Up/Referrals: hCarla Carrington MD [Primary Care Provider, Obstetrics] Stand Alone Forms: [facility] Info Instructions
== END 2025-02-22 17:05 | disposition home or self-care (01) ==
PROVIDERS: Emergency Provider Student in an Organized Health Care Education/Training Program; PCP Family Medicine
DX: S31.104A Unspecified open wound of abdominal wall, left lower quadrant without penetration into peritoneal cavity, initial encounter (principal)
CPT/HCPCS: 99282; 99283

== ENCOUNTER 2025-02-28 09:45 | Outpatient (CLI) | payer BC, SELFPAY | END 2025-02-28 09:46 | disposition home or self-care (01) | LOC: WOUND 09:46 | PROVIDERS: PCP Family Medicine; Visit Provider Nurse Practitioner Family | DX: T21.32XA Burn of third degree of abdominal wall, initial encounter (principal); C18.0 Malignant neoplasm of cecum; C18.9 Malignant neoplasm of colon, unspecified; Z92.3 Personal history of irradiation | CPT/HCPCS: 11042; G0463 ==

== ENCOUNTER 2025-03-08 10:57 | Outpatient (CLI) | payer BC, SELFPAY | END 2025-03-08 10:58 | disposition home or self-care (01) | LOC: WOUND 10:57 | PROVIDERS: PCP Family Medicine; Visit Provider Nurse Practitioner Family | DX: T21.32XA Burn of third degree of abdominal wall, initial encounter (principal); C18.0 Malignant neoplasm of cecum | CPT/HCPCS: 11042; 36415; 74177; 80053; 81001; 83690; 83735; 85025; 96374; 96375; 99284; 99285; J2270; Q9967 ==

== ENCOUNTER 2025-03-08 22:51 | Emergency (ER) | payer BC, SELFPAY ==
--- OUTSIDE RECORDS SUMMARY | 2025-01-25 07:00 | XMS_ITS | Encounter Summary ---
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 [address] [place] [address] Phone: tel: fax: Department of Oncology in [place], [place] [address] [place] [address] Phone: tel: Referral ID Status Reason Start Date Expiration Date Visits Re quested Visits Authorized [id number] Closed 09/06/2024 09/06/2025 99 99 Encounter Details Date Type Department Care Team (Late st Contact Info) Description 01/25/2025 8:00 AM CDT Lab Department of Oncology in [place], [place] [address] [place] [phone] Kadeem Marshall P.A.-C., M.S. [address] [place] [address] Malignant Neoplasm Of Cecum (HCC) (Primary Dx); Secondary Malignant Neoplasm Peritoneum (HCC) Social History Tobacco Use Types Packs/Day Years Used Date Smoking Tobacco: Never Passive Smoke Exposure: Never Smokeless Tobacco: Never Alcohol Use Standard Drinks/Week Comments Not Currently 0 (1 standard drink = 0.6 oz pur e alcohol) [facility] Utilities Answer Date Recorded In the past 12 months has [employer], gas, oil, or water [employer] threatened to shut off services in your [...] your living situation today? I have a [facility] place to live 2024 Education Answer [...] Care Team (Late st Contact Info) Description 03/12/2025 3:30 PM PNP Appointment Department of Radiation Oncology in [place], [place] [address] [place] [phone] Faith Ellis M.D. [address] [place] [phone] 03/15/2025 8:30 AM PNP Lab Department of Laboratory Medicine and Pathology, [facility] in [place], [place] [address] [place] [phone] Kadeem Marshall P.A.-C., M.S. [address] [place] [phone] 03/15/2025 9:40 AM PNP Education Department of Oncology in [address] [phone] Kadeem Marshall P.A.-C., M.S. [address] [place] [phone] 03/15/2025 10:30 AM PNP Infusion Department of Oncology in [place], [place] [address] [place] [phone] Kadeem Marshall P.A.-C., M.S. [address] [place] [phone] 04/05/2025 8:30 AM PNP Lab Department of Oncology in [address] [phone] Kadeem Marshall P.A.-C., M.S. [address] [place] [phone] 04/05/2025 10:40 AM PNP Office Visit Department of Oncology in [place], [place] [address] [place] [phone] Kadeem Marshall P.A.-C., M.S. [address] [place] [phone] 04/05/2025 1:00 PM PNP Infusion Department of Oncology in [place], [place] [address] [place] [phone] Kadeem Marshall P.A.-C., M.S. [address] [place] [phone] 04/30/2025 9:20 AM PNP Office Visit Department of Oncology in [place], [place] [address] [place] [phone] Kaedem Marshall P.A.-C., M.S. 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) MAGNESIUM, S Routine 01/25/2025 8:38 AM CDT 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 LAB BLOOD ADD-ON Fi nal Result [facility] [address] [place] [address], [facility] [address] [place] [address] * (ABNORMAL) Comprehensive Metabolic Panel (01/25/2025 8:38 AM CDT) Potassium, S 4.7 3.6 - 5.2 mmol/L 01/25/2025 9:40 AM CDT DTL Sodium, S 139 135 - 145 mmol/L 01/25/2025 9:40 AM CDT DTL Chloride, S 99 98 - 107 mmol/L 01/25/2025 9:40 AM CDT DTL Bicarbonate, S 25 22 - 29 mmol/L 01/25/2025 9:40 AM CDT DTL Anion Gap 15 7 - 15 01/25/2025 9:40 AM CDT DTL BUN (Blood Urea Nitrogen), S 13 6 - 21 mg/dL 01/25/2025 9:40 AM CDT DTL Creatinine 0.72 0.59 - 1.04 mg/dL 01/25/2025 9:40 AM CDT DTL Estimated GFR (eGFR) >90 >=60 mL/min/BS A 01/25/2025 9:40 AM CDT DTL Comment: Estimated GFR calculated using the 2020 CKD_EPI creatinine equation. Calcium, Total, S 9.9 8.8 - 10.2 mg/dL 01/25/2025 9:40 AM CDT DTL Glucose, S 90 70 - 140 mg/dL 01/25/2025 9:40 AM CDT DTL Protein, Total, S 6.8 6.3 - 7.9 g/dL 01/25/2025 9:40 AM CDT DTL Albumin, S 4.9 3.5 - 5.0 g/dL 01/25/2025 9:40 AM CDT DTL Aspartate Aminotransferase (AST), S 22 8 - 43 U/L 01/25/2025 9:40 AM CDT DTL Alkaline Phosphatase, S 125(H) 35 - 104 U/L 01/25/2025 9:40 AM CDT DTL Alanine Aminotransferase (ALT), S 18 7 - 45 U/L 01/25/2025 9:40 AM CDT DTL Bilirubin, Total, S 0.2 0.0 - 1.2 mg/dL 01/25/2025 9:40 AM CDT DTL Blood (Blood, Venous) 01/25/2025 8:38 AM CDT 01/25/2025 8:44 AM CDT us Kadeem Marshall P.A.-C., M.S. LAB BLOOD ADD-ON Fi nal Result [facility] [address] [place] [address], [facility] [address] [place] [address] * (ABNORMAL) CBC with Differential, Blood (01/25/2025 8:38 AM CDT) Hemoglobin 12.8 11.6 - 15.0 g/dL 01/25/2025 9:16 AM CDT DTL Hematocrit 38.9 35.5 - 44.9 % 01/25/2025 9:16 AM CDT DTL Erythrocytes 4.12 3.92 - 5.13 x10(12)/L 01/25/2025 9:16 AM CDT DTL MCV 94.4 78.2 - 97.9 fL 01/25/2025 9:16 AM CDT DTL RBC Distrib Width 13.8 12.2 - 16.1 % 01/25/2025 9:16 AM CDT DTL Platelet Count 159 157 - 371 x10(9)/L 01/25/2025 9:16 AM CDT DTL Leukocytes 4.0 3.4 - 9.6 x10(9)/L 01/25/2025 9:16 AM CDT DTL Neutrophils 2.79 1.56 - 6.45 x10(9)/L 01/25/2025 9:16 AM CDT DHPM Lymphocytes 0.72(L) 0.95 - 3.07 x10(9)/L 01/25/2025 9:16 AM CDT DTL Monocytes 0.45 0.26 - 0.81 x10(9)/L 01/25/2025 9:16 AM CDT DTL Eosinophils 0.06 0.03 - 0.48 x10(9)/L 01/25/2025 9:16 AM CDT DTL Basophils <0.03 0.01 - 0.08 x10(9)/L 01/25/2025 9:16 AM CDT DTL Blood (Blood, Venous) 01/25/2025 8:38 AM CDT 01/25/2025 8:50 AM CDT us Kadeem Marshall P.A.-C., M.S. LAB BLOOD ADD-ON Fi nal Result [facility] [address] [place] [address], [facility] DTL [facility] [address] [place] [address] DHPM [facility] [address] [place] [address] * Magnesium (01/25/2025 8:38 AM CDT) Magnesium, S 1.9 1.7 - 2.3 mg/dL 01/25/2025 9:40 AM CDT [facility] Blood (Blood, Venous) 01/25/2025 8:38 AM CDT 01/25/2025 8:44 AM CDT Kadeem Marshall P.A.-C. M.S. LAB BLOOD ADD-ON Fi nal Result [facility] [address] [place] [address] * S-TSH (Thyroid-Stimulating Hormone - Sensitive) (01/25/2025 8:38 AM CDT) [facility] TSH, Sensitive 2.6 0.3 - 4.2 mIU/L 01/25/2025 9:40 AM CDT [facility] Blood (Blood, Venous) 01/25/2025 8:38 AM CDT 01/25/2025 8:44 AM CDT us Kadeem Marshall P.A.-C., M.S. LAB BLOOD ADD-ON Fi nal Result Performing Organization Address City/[facility]/ZIP Co de Phone Number [facility] [address] [place] [address] * Zinc (01/25/2025 8:38 AM CDT) Pathologist [facility] Zinc, S 63 60 - 106 mcg/dL 01/26/2025 10:01 AM CDT [facility] Comment: ----ADDITIONAL INFORMATION---- This test was developed and its performance characteristics determined by [facility] in a manner consistent with CLIA requirements. This test has not been cleared or approved by the U.S. Food and Drug Administration. Blood (Blood, Venous) 01/25/2025 8:38 AM CDT 01/25/2025 11:10 AM CDT us Kadeem Marshall P.A.-C., M.S. LAB BLOOD NON ADD-O N Final Result [facility] [address] [place] [address] [facility] [address] [place] [address] 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
--- OUTSIDE RECORDS SUMMARY | 2025-01-25 10:00 | XMS_ITS | Encounter Summary ---
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 [address] [place] [address] Phone: tel: fax: Department of Oncology in [place], [place] [address] [place] [address] Phone: tel: Referral ID Status Reason Start Date Expiration Date Visits Re quested Visits Authorized [id number] Closed 09/06/2024 09/06/2025 99 [phone] Encounter Details Date Type Department Care Team (Late st Contact Info) Description 01/25/2025 11:00 AM CDT Office Visit Department of Oncology in [place], [place] [address] [place] [phone] Shahana Castillo M.D. [address] [place] [address] Malignant Neoplasm Of Cecum (HCC) (Primary Dx); Secondary Malignant Neoplasm Peritoneum (HCC); Secondary Malignant Neoplasm Liver (HCC) Social History Tobacco Use Types Packs/Day Years Used Date Smoking Tobacco: Never Passive Smoke Exposure: Never Smokeless Tobacco: Never Alcohol Use Standard Drinks/Week Comments Not Currently 0 (1 standard drink = 0.6 oz pur e alcohol) [facility] Utilities Answer Date Recorded In the past 12 months has e [employer] gas, oil, or water [employer] threatened to shut off services in your [...] your living situation today? I have a [facility] place to live 2024 Education Answer Date [...] Sign Reading Time Taken Comments Blood Pressure 143/85 01/25/2025 10:57 AM CDT Pulse 69 01/25/2025 10:57 AM CDT Temperature 36.5 C (97.7 F) 01/25/2025 10:57 AM CDT Respiratory Rate 15 01/25/2025 10:57 AM CDT Oxygen Saturation 100% 01/25/2025 10:57 AM CDT Inhaled Oxygen Concentration - - Weight 68.5 kg (151 lb 0.2 oz) 01/25/2025 10:57 AM CDT Height 158 cm (5' 2.21) 01/25/2025 10:57 AM CDT Body Mass Index 27.44 01/25/2025 10:57 AM CDT documented in this encounter Progress Notes * Shahana Castillo M.D. - 01/25/2025 11:00 AM CDT MEDICAL ONCOLOGY SUBSEQUENT VISIT SUBJECTIVE Cancer Staging Malignant Neoplasm Of Cecum (HCC) Staging form: Colon And Rectum, AJCC 8th Edition - Clinical stage from 10/21/2022: Stage Unknown (rcTX, cNX, pM1) Current Therapy: C28 FOLFIRI + Bevacizumab ( Fluorouracil / Leucovorin / Irinotecan / Bevacizumab ) Current Disease Status: Not evaluated ECOG Performance Status: 0 Intent of Therapy: Palliative Intent to Change Therapy: No CHIEF COMPLAINT / REASON FOR VISIT Hayley Unger is a 64 y.o. 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 HISTORY OF PRESENT ILLNESS Oncology History Malignant Neoplasm Of Cecum (HCC) 07/20/2022 Initial Diagnosis Malignant Neoplasm Of Cecum (HCC) On July 03, 2022, she had a colonoscopy with apparently good prep revealing a cecal adenocarcinoma(reported elsewhere as being high-grade) and proficient in mismatch repair enzyme expression. Thereis no family history of colon cancer or other Morris-associated cancers. Patient is status post remote . [facility] pathology review Colon, cecum, mass, biopsy ([id number]; 07/03/2022): Invasive moderately- adenocarcinoma, pMMR. 07/30/2022 Surgery and Procedures ROBOTIC-ASSISTED COLECTOMY RIGHT WITH ANASTOMOSIS. Histologic Type: Adenocarcinoma Histologic Grade: G2 pT Category: pT3 pN Category: pN2a 07/30/2022 Genetic Testing and Tumor Genotyping 07/30/22 [facility] CRC Panel CINDY/PORSHA wt NAIF 10/21/2022 Clinical Stage Staging form: Colon And Rectum, AJCC 8th Edition - Clinical stage from 10/21/2022: Stage Unknown (rcTX, cNX, pM1) Stage prefix: Recurrence Histologic grade (G): G2 Histologic grading system: 4 grade system 11/09/2022 - 03/26/2023 Chemotherapy -FOLFOX6 ( Fluorouracil / Leucovorin / Oxaliplatin ); cycle 3 treatment complicated by infusion reaction; completed a total of 6 cycles of treatment by 03/26/23; treatment complicated by fatigue, mouth sores, and eye pain 05/27/2023 Surgery and Procedures DEBULKING OF INTRA-ABDOMINAL TUMOR. REDO RIGHT HEMICOLECTOMY WITH ANASTOMOSIS. HYPERTHERMIC INTRAPERITONEAL CHEMOTHERAPY PROCEDURE. OMENTECTOMY. BLOCK - TRANSVERSUS ABDOMINIS PLANE. CYSTOSCOPY INSERTION STENT URETER. There were five or six 2 mm nodules around the anastomosis. Therefore, we resected the anastomosis. There was peritoneal surface involvement measuring 0.3 cm involving the pelvis. The PCI was 6. HIPEC with mitomycin c and cisplatin Pathology A. Omentum, omentectomy: Metastatic colonic adenocarcinoma. B. Peritoneum, hepatorenal, resection: Metastatic colonic adenocarcinoma. C. Soft tissue, abdominal falciform ligament, resection: Negative for tumor. D. Peritoneum, hepatogastric, excision: Negative for tumor. E. Soft tissue, periduodenal, excision: Metastatic colonic adenocarcinoma. F. Small bowel, ileocolic anastomosis and right colic gutter peritoneum, resection: Involved by colonic adenocarcinoma, involving the mesentery and multifocally extending from the serosa to the submucosa of the bowel wall. G. Soft tissue, epiploic fat, resection: Negative for tumor. H. Peritoneum, pelvic-middle, resection: Metastatic colonic adenocarcinoma. I. Peritoneum, left abdominal wall nodules, biopsy: Metastatic colonic adenocarcinoma. J. Peritoneum, right abdominal wall nodules, biopsy: Metastatic colonic adenocarcinoma. 09/14/2023 Biopsy/Pathology Soft Tissue, Abdominal wall lesion LLQ, fine needle aspiration (smears/core biopsy): Positive for malignancy. Adenocarcinoma, consistent with metastatic colonic adenocarcinoma. 10/22/2023 - 03/31/2024 Chemotherapy FOLFIRI + Bevacizumab x 11 cycles, bevacizumab was dc'ed in 03/19 for HTN 03/09/2024 Genetic Testing and Tumor Genotyping Germline genetic testing in 2022 with variant downgrade in 2023 (now fully negative panel); [facility]- Cancer panel through [facility]. 2024 Surgery and Procedures percutaneous microwave ablation of 4 liver lesions complicated by right pneumothorax and chest tubeplacement 05/2024 - Chemotherapy Restaging CT scan on 05/28/2024 showed disease progression so she restarted FOLFIRI/bevacizumab. Irinotecan was omitted in June of 2024 for toxicities. She was again found to have disease progression in September of 2024 and was escalated to FOLFIRI (20% dose reduction of Irinotecan). 07/27/[address] CAP with treatment response (lung, liver, peritoneum, abdominal wall musculature). 10/05/[address] CAP with disease progression after irinotecan was omitted from her regimen in June of 2024 (dueto toxicities). 11/30/[address] CAP with stable disease in the abdomen, and concern for mild progression in the lungs. 12/07/2024 Other Comprehensive genomic profiling performed off the abdominal wall tissue specimen from 09/14/2023 demonstrated point mutations in the HER2 Galina gene, and HER2 gene amplification in addition to other alterations (report scanned in the media tab). Secondary Malignant Neoplasm Peritoneum (HCC) 10/22/2023 - 03/31/2024 Chemotherapy FOLFIRI + Bevacizumab x 11 cycles, bevacizumab was dc'ed in 03/19 for HTN 03/09/2024 Genetic Testing and Tumor Genotyping Germline genetic testing in 2022 with variant downgrade in 2023 (now fully negative panel); [facility]- Cancer panel through [facility]. 05/2024 - Chemotherapy Restaging CT scan on 05/28/2024 showed disease progression so she restarted FOLFIRI/bevacizumab. Irinotecan was omitted in June of 2024 for toxicities. She was again found to have disease progression in September of 2024 and was escalated to FOLFIRI (20% dose reduction of Irinotecan). INTERVAL HPI History of Present Illness Hayley Unger is a 64 year old female with colorectal cancer who presents for chemotherapy management and evaluation of side effects. She is currently undergoing her 28th cycle of chemotherapy for colorectal cancer, which includes irinotecan and 5-fluorouracil (5FU). She has experienced increased energy levels over the past few weeks, attributed to the use of various supplements. 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 She also cares for her 90-year-old mother and a 14-year-old dachshund. Her supplement regimen includes Methyl Master, magnesium glycinate, curcumin, liver sauce, probiotics, silver, artemisinin, and vitamin D. She has not experienced diarrhea with magnesium glycinate. The supplements have notably improved her energy levels. She has developed a new skin lesion on her face, described as a boil-like bump with a hole in the middle, which appeared a couple of days ago. It differs from her usual chemotherapy-induced acne and has not drained. Application of apple cider vinegar reduced the redness. She also noticed two additional bumps under her lip. She follows a keto diet and has lost weight, currently weighing between 147 to 150 pounds, down from 164 pounds. She tracks her intake using an drew, ensuring she consumes 90 grams of protein, 138 grams of fat, and maintains her caloric intake between 1505 to 2000 kcal daily. Her goal is to maintainher weight around 140 pounds. She experiences nausea primarily during the first three days post-chemotherapy infusion, which improves by the second week. She uses Ativan for nausea and has tried shabnam chews and peppermint tea. She also has C bands for motion sickness, which she plans to use during infusions. No vomiting has occurred with the current reduced chemotherapy doses. Her bowel movements have normalized to three times a day, with formed stools since starting the supplements and changing her diet. She has not vomited in the past few weeks, but continues to experience nausea during the first three days after chemotherapy infusion. The following portions of the patient's history were reviewed and updated as appropriate: allergies, current medications, family history, medical history, social history, surgical history, and problem list. Distress Score: No data recorded OBJECTIVE BP 143/85 (BP Location: Left arm, Patient Position: Sitting, Cuff Size: Large) Pulse 69 Temp 36.5 ??C (Tympanic) Resp 15 Ht 158 cm Wt 68.5 kg SpO2 100% BMI 27.44 kg/m?? PHYSICAL EXAMINATION Vitals reviewed. Constitutional General: She is not in acute distress. Appearance: Normal appearance. She is not diaphoretic. HENT Head: Normocephalic. Mouth/Throat: Mouth: Mucous membranes are moist. Eyes General: No scleral icterus. Extraocular Movements: Extraocular movements intact. Cardiovascular Rate and Rhythm: Normal rate and regular rhythm. Heart sounds: Normal heart sounds. Pulmonary Effort: Pulmonary effort is normal. Breath sounds: Normal breath sounds. Abdominal General: Bowel sounds are normal. There is no distension. Palpations: There is no fluid wave, hepatomegaly, splenomegaly or mass. Tenderness: There is no abdominal tenderness. There is no right CVA tenderness, left CVA tenderness, guarding or rebound. Musculoskeletal Right lower leg: No edema. Left lower leg: No edema. Skin General: Skin is dry. Coloration: Skin is not jaundiced. Findings: Lesion present. Comments: Pajaros, indurated, nontender skin lesion (approx 1 cm diameter) on R chin, no definite subcutaneous fluid collection, small scab, no drainage. 2 smaller nontender pink papules below vermis right of midline (approx 3 mm diameter for both) Neurological General: No focal deficit present. Mental Status: She is alert and oriented to person, place, and time. Gait: Gait normal. Psychiatric Mood and Affect: Mood normal. Behavior: Behavior normal. Thought Content: Thought content normal. Judgment: Judgment normal. LABORATORY DATA Lab data reviewed. Lab Results Component Value Date HGB 12.8 01/25/2025 PLT 159 01/25/2025 WBC 4.0 01/25/2025 AST 22 01/25/2025 ALT 18 01/25/2025 ALKPHOS 125 (H) 01/25/2025 BILITOT 0.2 01/25/2025 NA 139 01/25/2025 KSERUM 4.7 01/25/2025 CL 99 01/25/2025 CREATININE 0.72 01/25/2025 BUN 13 01/25/2025 TSH 2.6 01/25/2025 INR 0.9 04/10/2024 GLUCOSE 90 01/25/2025 CEA 4.9 (H) 11/30/2024 RADIOLOGICAL DATA Radiology data reviewed. No results found. ASSESSMENT / PLAN Please refer to assessment/plan as documented below: Assessment & Plan Colorectal cancer with liver metastases Undergoing 28th cycle of chemotherapy with irinotecan and 5FU. Significant nausea and fatigue post-infusion. Previous scans showed growth, necessitating irinotecan addition. Discussed potential 5FU dose reduction by 5% due to side effects, maintaining irinotecan dose. Risks include less cancer control with dose reduction, but potential benefit of reduced side effects. - Reduce 5FU dose by 5%. - Maintain irinotecan dose at 60%. - Order scans in two weeks to assess treatment efficacy. - Evaluate anti-nausea regimen and consider alternatives such as dronabinol or cannabis if needed. Nausea and fatigue related to chemotherapy Nausea and fatigue occur primarily during the first three days post-infusion. Uses Ativan for nausea. Discussed potential use of C bands, dronabinol, and cannabis. Peppermint and shabnam have more data supporting their effectiveness for nausea. - Continue Ativan for nausea as needed. - Consider using C bands for nausea management. - Explore the use of dronabinol or cannabis for nausea if needed. - Evaluate the effectiveness of shabnam and peppermint for nausea. Facial skin lesion Thickened facial lesion resembling a boil, indurated with , inflammation, no drainage or infection signs. Differential includes insect bite or chemotherapy reaction. Dietary management and weight loss On keto diet, weight between 147-150 pounds, aiming to maintain around 140 pounds. Monitoring macronutrient intake to prevent further weight loss. Discussed balancing caloric intake with energy expenditure. - Continue monitoring dietary intake and weight. - Adjust caloric intake as needed to maintain weight. - Consider increasing healthy fats if additional calories are needed. Supplement use and potential interactions Taking supplements including Methyl Master, magnesium glycinate, curcumin, liver sauce, and artemisinin. Reviewing potential interactions with chemotherapy. Curcumin may affect platelet function, liver sauce contains milk thistle which may elevate liver enzymes. - Review supplement list for potential interactions with chemotherapy. - Advise holding curcumin if bleeding occurs. - Monitor for side effects related to supplement use. No orders of the defined types were placed in this encounter. ADMINISTRATIVE BILLING I personally spent 60 minutes in care of the patient today. Time includes both non face to face andface to face patient care. PATIENT EDUCATION Ready to learn, no apparent learning barriers were identified; learning preferences include listening. Explained diagnosis and treatment plan; patient expressed understanding of the content. 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 [address] [place] [phone] 03/15/2025 8:30 AM ROUGH AND TRUEING MACHINE OPERATOR Lab Department of Laboratory Medicine and Pathology, [facility], in [place], [place] [address] [place] [phone] Kadeem Marshall P.A.-C., M.S. [address] [place] [phone] 03/15/2025 9:40 AM ROUGH AND TRUEING MACHINE OPERATOR Education Department of Oncology in [place], [place] [address] [place] [phone] Kadeem Marshall P.A.-C., M.S. [address] [place] [phone] 03/15/2025 10:30 AM ROUGH AND TRUEING MACHINE OPERATOR Infusion Department of Oncology in [place], [place] [address] [place] [phone] Kadeem Marshall P.A.-C., M.S. [address] [place] [phone] 04/05/2025 8:30 AM ROUGH AND TRUEING MACHINE OPERATOR Lab Department of Oncology in [place], [place] [address] [place] [phone] JoKadeem venegas P.A.-C., M.S. [address] [place] [phone] 04/05/2025 10:40 AM ROUGH AND TRUEING MACHINE OPERATOR Office Visit Department of Oncology in [place], [place] [address] [place] [phone] Kadeem Marshall P.A.-C., M.S. [address] [place] [phone] 04/05/2025 1:00 PM ROUGH AND TRUEING MACHINE OPERATOR Infusion Department of Oncology in [place], [place] [address] [place] [phone] Kadeem Marshall P.A.-C., M.S. [address] [place] [phone] 04/30/2025 9:20 AM ROUGH AND TRUEING MACHINE OPERATOR Office Visit Department of Oncology in [address] [phone] Kadeem Marshall P.A.-C., M.S. [address] [place] [phone] documented as of this encounter Visit Diagnoses Diagnosis Malignant Neoplasm Of Cecum (HCC)- Primary Secondary Malignant Neoplasm Peritoneum (HCC) Secondary Malignant Neoplasm Liver (HCC) documented in this encounter Additional Health Concerns Infection Onset Date Last Indicated Resolved Time Protective Environment 06/02/2024 06/02/2024 documented as of this encounter Care Teams Manager Android Relationship Specialty Start Date End Date Elsewhere, Pcp PCP - General Internal Medicine 03/08/24 documented as of this encounter
--- OUTSIDE RECORDS SUMMARY | 2025-01-25 12:00 | XMS_ITS | Encounter Summary ---
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 [address] [place] [address] Phone: tel: fax: Department of Oncology in [place], [place] [address] [place] [address] Phone: tel: Referral ID Status Reason Start Date Expiration Date Visits Re quested Visits Authorized [id number] Closed 09/06/2024 09/06/2025 99 99 Encounter Details Date Type Department Care Team (Late st Contact Info) Description 01/25/2025 1:00 PM CDT Infusion Department of Oncology in [place], [place] [address] [place] [address] Kadeem Marshall P.A.-C., M.S. [address] [place] [phone] Malignant Neoplasm Of Cecum (HCC) (Primary Dx); Secondary Malignant Neoplasm Peritoneum (HCC) Social History Tobacco Use Types Packs/Day Years Used Date Smoking Tobacco: Never Passive Smoke Exposure: Never Smokeless Tobacco: Never Alcohol Use Standard Drinks/Week Comments Not Currently 0 (1 standard drink = 0.6 oz pur e alcohol) [facility] [place] Utilities Answer Date Recorded In the past 12 months has e [employer], gas, oil, or water [employer] threatened to shut off services in your [...] st Contact Info) Description 03/12/2025 3:30 PM TECHNOLOGY INTEGRATION SPECIALIST Appointment Department of Radiation Oncology in [place], [place] [address] [place] [phone] Faith Ellis M.D. [address] [place] [phone] 03/15/2025 8:30 AM TECHNOLOGY INTEGRATION SPECIALIST Lab Department of Laboratory Medicine and Pathology, [facility], in [place], [place] [address] [place] [phone] Kadeem Marshall P.A.-Tammy., M.S. [address] [place] [phone] 03/15/2025 9:40 AM TECHNOLOGY INTEGRATION SPECIALIST Education Department of Oncology in [place], [place] [address] [place] [phone] Kadeem Marshall P.A.-C., M.S. [address] [place] [phone] 03/15/2025 10:30 AM TECHNOLOGY INTEGRATION SPECIALIST Infusion Department of Oncology in [address] [phone] Kadeem Marshall P.A.-C., M.S. [address] [place] [phone] 04/05/2025 8:30 AM TECHNOLOGY INTEGRATION SPECIALIST Lab Department of Oncology in [address] [address] Kadeem Marshall P.A.-C., M.S. [address] [place] [phone] 04/05/2025 10:40 AM TECHNOLOGY INTEGRATION SPECIALIST Office Visit Department of Oncology in [address] [phone] Kadeem Marshall P.A.-C., M.S. [address] [place] [phone] 04/05/2025 1:00 PM TECHNOLOGY INTEGRATION SPECIALIST Infusion Department of Oncology in [address] [phone] Kadeem Marshall P.A.-C., M.S. [address] [place] [phone] 04/30/2025 9:20 AM TECHNOLOGY INTEGRATION SPECIALIST Office Visit Department of Oncology in [address] [phone] Kadeem Marshall P.A.-C., M.S. 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) documented in this encounter Administered Medications Inactive Administered Medications - up to 3 most recent administrations Medication Order MAR Action Action Date Dose Rate Site atropine injection 0.25 mg 0.25 mg, subcutaneous, Once, On Felisha 01/25/25 at 1500, For 1 dose, 1/[address] way through IrinotecanIndications:M alignant Neoplasm Of Cecum (HCC),Secondary Malignant Neoplasm Peritoneum (HCC) Given 01/25/2025 2:26 PM CDT 0.25 mg Left Upper Arm (Back) atropine injection 0.25 mg 0.25 mg, subcutaneous, Once, On Felisha 01/25/25 at 1500, For 1 dose, 1/[address] way through IrinotecanIndications:M alignant Neoplasm Of Cecum (HCC),Secondary Malignant Neoplasm Peritoneum (HCC) Given 01/25/2025 3:22 PM CDT 0.25 mg Right Upper Arm (Back) fluorouraciL 3,000 mg in NaCl 0.9% 92 mL IVPB (AdruciL) 3,000 mg (rounded from 3,024 mg = 1,680 mg/m2 1.8 m2 Treatment Plan BSA from Measured weight), intravenous, at 2 mL/hr, Administer over 46 Hours, over 46 hours, First dose on Felisha 01/25/25 at 1630, For 1 dose, Continuous infusion over 46 hours. Dose reflects TOTAL CALCULATED DOSE to be administered via continuous infusion over the specified length of treatment.Indications:M alignant Neoplasm Of Cecum (HCC),Secondary Malignant Neoplasm Peritoneum (HCC) Given 01/25/2025 4:24 PM CDT 3,000 mg 2 mL/hr irinotecan 200 mg in NaCl 0.9% 558 mL IVPB (Camptosar) 200 mg (rounded from 194.4 mg = 108 mg/m2 1.8 m2 Treatment Plan BSA from Measured weight), intravenous, at 372 mL/hr, Administer over 90 Minutes, Once, On Felisha 01/25/25 at 1500, For 1 dose, May be given via y-site with leucovorin. Do NOT refrigerate. PROTECT FROM LIGHT.Indications:Malig nant Neoplasm Of Cecum (HCC),Secondary Malignant Neoplasm Peritoneum (HCC) New Bag 01/25/2025 2:31 PM CDT 200 mg 372 mL/hr leucovorin 100 mg in NaCl 0.9% 115 mL IVPB 100 mg, intravenous, at 76.7 mL/hr, Administer over 90 Minutes, Once, On Felisha 01/25/25 at 1500, For 1 dose, May be given y-site with irinotecanIndications:M alignant Neoplasm Of Cecum (HCC),Secondary Malignant Neoplasm Peritoneum (HCC) New Bag 01/25/2025 2:31 PM CDT 100 mg 76.7 mL/hr LORazepam tablet 0.5 mg (Ativan) 0.5 mg, oral, Once, On Felisha 01/25/25 at 1430, For 1 dose, At treatment start time for nauseaIndications:Karen nant Neoplasm Of Cecum (HCC),Secondary Malignant Neoplasm Peritoneum (HCC) Given 01/25/2025 2:25 PM CDT 0.5 mg NaCl 0.9 % bolus 1,000 mL 1,000 mL, intravenous, at 1,000 mL/hr, Administer over 1 Hours, Once, On Felisha 01/25/25 at 1430, For 1 doseIndications:Maligna nt Neoplasm Of Cecum (HCC),Secondary Malignant Neoplasm Peritoneum (HCC) New Bag 01/25/2025 2:23 PM CDT 1,000 mL 1000 mL/hr documented in this encounter Additional Health Concerns Infection Onset Date Last Indicated Resolved Time Protective Environment 06/02/2024 06/02/2024 documented as of this encounter Care Teams Surface Supply Breathing Apparatus Relationship Specialty Start Date End Date Elsewhere, Pcp PCP - General Internal Medicine 03/08/24 documented as of this encounter
--- OUTSIDE RECORDS SUMMARY | 2025-01-27 13:45 | XMS_ITS | Encounter Summary ---
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 [address] [place] [address] Phone: tel: fax: Department of Oncology in [place], [place] [address] [place] [address] Phone: tel: Referral ID Status Reason Start Date Expiration Date Visits Re quested Visits Authorized [id number] Closed 09/06/2024 09/06/2025 99 99 Encounter Details Date Type Department Care Team (Late st Contact Info) Description 01/27/2025 2:45 PM CDT Infusion Department of Infusion Therapy in [place], [place] [address] [place] [phone] Kadeem Marshall P.A.-C., M.S. [address] [place] [address] Malignant Neoplasm Of Cecum (HCC) (Primary Dx); Secondary Malignant Neoplasm Peritoneum (HCC) Discharge Disposition: Home or Self Care Social History Tobacco Use Types Packs/Day Years Used Date Smoking Tobacco: Never Passive Smoke Exposure: Never Smokeless Tobacco: Never Alcohol Use Standard Drinks/Week Comments Not Currently 0 (1 standard drink = 0.6 oz pur e alcohol) [facility] Utilities Answer Date Recorded In the past [...] your living situation today? I have a [facility] place to live 2024 Education Answer Date [...] st Contact Info) Description 03/12/2025 3:30 PM STRATEGIC ACCOUNT EXECUTIVE Appointment Department of Radiation Oncology in [place], [place] [address] [place] [phone] Faith Ellis M.D. [address] [place] [phone] 03/15/2025 8:30 AM STRATEGIC ACCOUNT EXECUTIVE Lab Department of Laboratory Medicine and Pathology, [facility], in [place], [place] [address] [place] [phone] Kadeem Marshall P.A.-C., M.S. [address] [place] [phone] 03/15/2025 9:40 AM STRATEGIC ACCOUNT EXECUTIVE Education Department of Oncology in [place], [place] [address] [place] [phone] Kadeem Marshall P.A.-C., M.S. [address] [place] [phone] 03/15/2025 10:30 AM STRATEGIC ACCOUNT EXECUTIVE Infusion Department of Oncology in [address] [phone] Kadeem Marshall P.A.-C., M.S. [address] [place] [phone] 04/05/2025 8:30 AM STRATEGIC ACCOUNT EXECUTIVE Lab Department of Oncology in [address] [phone] Kadeem Marshall P.A.-C., M.S. [address] [place] [phone] 04/05/2025 10:40 AM STRATEGIC ACCOUNT EXECUTIVE Office Visit Department of Oncology in [address] [phone] Kadeem Marshall P.A.-C., M.S. [address] [place] [phone] 04/05/2025 1:00 PM STRATEGIC ACCOUNT EXECUTIVE Infusion Department of Oncology in [address] [phone] Kadeem Marshall P.A.-C., M.S. [address] [place] [phone] 04/30/2025 9:20 AM STRATEGIC ACCOUNT EXECUTIVE Office Visit Department of Oncology in [address] [phone] Kadeem Marshall P.A.-C., M.S. [address] [place] [phone] documented as of this encounter Visit Diagnoses [...] documented as of this encounter Care Teams Vice President [employer] Relationship Specialty Start Date End Date Elsewhere, Pcp PCP - General Internal Medicine 03/08/24 documented as of this encounter
--- OUTSIDE RECORDS SUMMARY | 2025-01-27 15:38 | XMS_ITS | Encounter Summary ---
Author Organization [facility] Address [address] [place] [address] Care Team Providers Care Cable Dispatcher Name Role Phone Elsewhere, Pcp Primary Care Provider Unavailabl e Reason for Referral * Medication Prior Authorization - Closed Specialty Diagnoses / Procedures Referred By Edgardo t Referred To Contact Diagnoses Postherpetic Trigeminal Neuralgia Christopher Arteaga APRN, C.N.P., D.N.P. [address] [place] [address] Phone: tel: fax: Referral ID Status Reason Start Date Expiration Date Visits Re quested Visits Authorized [id number] Closed 1 1 Reason for Visit * Reason Comments Headache Encounter Details Date Type Department Care Team (Late st Contact Info) Description 01/27/2025 4:38 PM CDT - 01/27/2025 6:30 PM CDT Emergency [facility] [address] [place] [phone] Christopher Arteaga APRN, C.N.P., D.N.P. [address] [place] [phone] Postherpetic Trigeminal Neuralgia (Primary Dx) Discharge Disposition: Home or Self Care Social History Tobacco Use Types Packs/Day Years Used Date Smoking Tobacco: Never Passive Smoke Exposure: Never Smokeless Tobacco: Never Alcohol Use Standard Drinks/Week Comments Not Currently 0 (1 standard drink = 0.6 oz pur e alcohol) [facility] Utilities Answer Date Recorded In the past 12 months has e [employer], gas, oil, or water [employer] threatened to shut off services in your [...] your living situation today? I have a [facility] place to live 2024 Education [...] directed. Two prescriptions will be at the [facility] pharmacy in [place]. supervisor order takers the oxycodone at the [employer] machine see you have it for tonight [...] Care Everywhere. * Trigeminal Neuralgia * Shingles (Telugu) documented in this encounter Medications at Time [...] and is now localized in her right roman catholic. The pain is described as 'pulsing' and [...] small papular lesion with erythema at the roman catholic. Lungs are clear, heart S1-S2 with no [...] headache radiating from the occiput to the roman catholic, associated with a vesicular lesion on the right chin and a small erythematous papule at the roman catholic. She reported associated nausea, transient visual disturbances, [...] cell arteritis): Pulsating headache over the right roman catholic raises concern for temporal arteritis, though it [...] Arteaga APRN, C.N.P., D.N.P. Oxycodone was from [employer]. FOLLOW UP Contact Information for Follow-ups Elsewhere, Pcp Specialty: Internal Medicine, General Operator, Pediatrics, Women's Health, Family Medicine Relationship: PCP - General Office Next Steps: Follow up in 1 week(s) Christopher Arteaga DNP, DALIA, 21 DEALER-C, AGACNP-BC, ENP-C Emergency Medicine [1] Past Medical [...] st Contact Info) Description 03/12/2025 3:30 PM METAL CANS SUPERVISOR Appointment Department of Radiation Oncology in [place], [place] [address] [place] [phone] Faith Ellis M.D. [address] [place] [phone] 03/15/2025 8:30 AM METAL CANS SUPERVISOR Lab Department of Laboratory Medicine and Pathology, [facility] in [place], [place] [address] [place] [phone] Kadeem Marshall P.A.-C., M.S. [address] [place] [phone] 03/15/2025 9:40 AM METAL CANS SUPERVISOR Education Department of Oncology in [address] [phone] Kadeem Marshall P.A.-C., M.S. [address] [place] [phone] 03/15/2025 10:30 AM METAL CANS SUPERVISOR Infusion Department of Oncology in [address] [phone] Kadeem Marshall P.A.-C., M.S. [address] [place] [phone] 04/05/2025 8:30 AM METAL CANS SUPERVISOR Lab Department of Oncology in [address] [phone] Kadeem Marshall P.A.-C., M.S. [address] [place] [phone] 04/05/2025 10:40 AM METAL CANS SUPERVISOR Office Visit Department of Oncology in [address] [phone] Kadeem Marshall P.A.-C., M.S. [address] [place] [phone] 04/05/2025 1:00 PM METAL CANS SUPERVISOR Infusion Department of Oncology in [place], [place] [address] [place] [phone] Kadeem Marshall P.A.-C., M.S. [address] [place] [phone] 04/30/2025 9:20 AM METAL CANS SUPERVISOR Office Visit Department of Oncology in [place], [place] [address] [place] [phone] Kadeem Marshall P.A.-C., M.S. [address] [place] [phone] documented as of this encounter Procedures Procedure [...] more sensitive forintracranial metastasis is clinically indicated. us Christopher Arteaga APRN, C.N.P., D.N.P. IMG AJAY TODD Final Result * (ABNORMAL) Basic Metabolic Panel [...] PM CDT 01/27/2025 5:18 PM CDT us Tammy Kapadia APRN.N.P., D.N.P. LAB BLOOD AD D-ON Final Result Performing Organization Address [facility] [place] [address], [place] [address] * (ABNORMAL) CRP (C-Reactive Protein) (01/27/2025 5:16 PM CDT) Pathologist [facility] C-Reactive Protein (CRP), P 5.1(H) <5.0 mg/L 01/27/2025 5:36 PM CDT CNFL Blood (Blood, Venous) 01/27/2025 5:16 PM CDT 01/27/2025 5:18 PM CDT us Tammy Kapadia APRN.N.P., D.N.P. LAB BLOOD AD D-ON Final Result Performing Organization Address [facility]/[place] [address], [place] [address] * (ABNORMAL) CBC with Differential, Blood (01/27/2025 [...] 5:16 PM CDT 01/27/2025 5:18 PM CDT Christopher Arteaga APRN, C.N.P., D.N.P. LAB BLOOD AD D-ON Final Result [facility] [address] [place], [place] [id number], [facility] in [address] [address] documented in this encounter Visit Diagnoses Diagnosis [...] On 01/27/25 at 1706, For 1 dose 1715 (Given - Provid er: Nicolette Brody, R.N.) gabapentin capsule 100 mg (Neurontin) (COMPLETED) 100 mg, oral, Once, On 01/27/25 at 1801, For 1 dose 1805 (Given - Provid er: Nicolette Brody, R.N.) ketorolac injection 15 mg (ToradoL) (COMPLETED) 15 mg, intravenous, Once, On 01/27/25 at 1706, For 1 dose, Adult IV push rate: Over 15 seconds. Peds IV push rate: Over 1 minute. Doses > 15 mg IV/IM are discouraged due to lack of additional analgesic benefit. 1716 (Given - Provid er: Nicolette Brody RAlpeshN.) LORazepam injection 1 mg (Ativan) (COMPLETED) 1 mg, intravenous, Once, On 01/27/25 at 1706, For 1 dose, Shortage on injection, use oral when possible For intravenous use, dilute with equal volume of 0.9% NS 171 (Given - Provid er: Ruy AlmendarezN.) valACYclovir tablet 1,000 mg (Valtrex) (COMPLETED) 1,000 [...] documented as of this encounter Care Teams Cable Dispatcher Relationship Specialty Start Date End Date Elsewhere, Pcp PCP - General Internal Medicine 03/08/24 documented as of this encounter
--- OUTSIDE RECORDS SUMMARY | 2025-02-22 10:01 | XMS_ITS | Encounter Summary ---
Author Organization [facility] Address [address] [place] [address] Care Team Providers Care Lead Customer Service Representative Name Role Phone Elsewhere, Pcp Primary Care Provider Unavailabl e Reason for Referral * MRI/CAT/PET Scan (Routine) - Closed Specialty Diagnoses / Procedures Referred By Contac t Referred To Contact Radiology Diagnoses Secondary Malignant Neoplasm Liver (HCC) Procedures CT Abdomen Pelvis with IV Contrast Kadeem Marshall P.A.-C., M.S. [address] [place] [address] Phone: tel: fax: [facility] Region Referral ID Status Reason Start Date Expiration Date Visits Re quested Visits Authorized [id number] Closed 01/30/2025 05/02/2026 1 1 * MRI/CAT/PET Scan (Routine) - Closed Specialty Diagnoses / Procedures Referred By Contac t Referred To Contact Radiology Diagnoses Secondary Malignant Neoplasm Liver (HCC) Procedures CT Chest with IV Contrast Kadeem Marshall P.A.-C., M.S. [address] [place] [address] Phone: tel: fax: [facility] Region Referral ID Status Reason Start Date Expiration Date Visits Re quested Visits Authorized [id number] Closed 01/30/2025 05/02/2026 1 1 Reason for Visit * MRI/CAT/PET Scan (Routine) - Closed Specialty Diagnoses / Procedures Referred By Edgardo banks Referred To Contact Radiology Diagnoses Secondary Malignant Neoplasm Liver (HCC) Procedures CT Abdomen Pelvis with IV Contrast Kadeem Marshall P.A.-C., M.S. [address] [place] [address] Phone: tel: fax: [facility] Referral ID Status Reason Start Date Expiration Date Visits Re quested Visits Authorized [id number] Closed 01/30/2025 05/02/2026 1 1 Encounter Details Date Type Department Care Team (Latest Contact Info) Description 02/22/2025 11:01 AM CDT - 02/22/2025 11:59 PM CDT Hospital Encounter Department of Radiology in [address] [phone] Kadeem Marshall P.A.-C., M.S. [address] [place] [phone] Secondary Malignant Neoplasm Liver (HCC) Discharge Disposition: Home or Self Care Social History Tobacco Use Types Packs/Day Years Used Date Smoking Tobacco: Never Passive Smoke Exposure: Never Smokeless Tobacco: Never Alcohol Use Standard Drinks/Week Comments Not Currently 0 (1 standard drink = 0.6 oz pur e alcohol) [facility] Utilities Answer Date Recorded In the past 12 months has e [place], gas, oil, or water en[employer] threatened to shut off services in your [...] your living situation today? I have a [facility] place to live 2024 Education Answer [...] AM CDT documented as of this encounter Medications at Time of Discharge [...] morning meal. Per Patient: 10,000 with breakfast loperamide (Imodium A-D) 2 mg capsule Take [...] tablet 3 11/17/2024 12:36 PM CDT 11/17/2024 penciclovir (Denavir) 1 % cream Apply 1 [...] day as needed for flatulence (Bloating). 08/03/2022 documented as of this encounter Plan of Treatment Upcoming Encounters Date Type Department Care Team (Late st Contact Info) Description 03/12/2025 3:30 PM DATA MANAGEMENT MANAGER Appointment Department of Radiation Oncology in [place], [place] [address] [place] [phone] Faith Ellis M.D. [address] [place] [phone] 03/15/2025 8:30 AM DATA MANAGEMENT MANAGER Lab Department of Laboratory Medicine and Pathology, [facility], in [place], [place] [address] [place] [phone] Kadeem Marshall P.A.-C., M.S. [address] [place] [phone] 03/15/2025 9:40 AM DATA MANAGEMENT MANAGER Education Department of Oncology in [place], [place] [address] [place] [phone] Kadeem Marshall P.A.-C., M.S. [address] [place] [phone] 03/15/2025 10:30 AM DATA MANAGEMENT MANAGER Infusion Department of Oncology in [address] [phone] Kadeem Marshall P.A.-C., M.S. [address] [place] [phone] 04/05/2025 8:30 AM DATA MANAGEMENT MANAGER Lab Department of Oncology in [address] [phone] Kadeem Marshall P.A.-C., M.S. [address] [place] [phone] 04/05/2025 10:40 AM DATA MANAGEMENT MANAGER Office Visit Department of Oncology in [address] [phone] Kadeem Marshall P.A.-C., M.S. [address] [place] [phone] 04/05/2025 1:00 PM DATA MANAGEMENT MANAGER Infusion Department of Oncology in [address] [phone] Kadeem Marshall P.A.-C., M.S. [address] [place] [phone] 04/30/2025 9:20 AM DATA MANAGEMENT MANAGER Office Visit Department of Oncology in [address] [phone] Kadeem Marshall P.A.-C., M.S. [address] [place] [phone] documented as of this encounter Procedures Procedure Name Priority Date/Time Associated Diagnosis Comments CT ABDOMEN PELVIS WITH IV CONTRAST RAD - Routine (most inpatients and all outpatients) 02/22/2025 11:25 AM CDT Secondary Malignant Neoplasm Liver (HCC) CT CHEST WITH IV CONTRAST RAD - Routine (most inpatients and all outpatients) 02/22/2025 11:25 AM CDT Secondary Malignant Neoplasm Liver (HCC) documented in this encounter Results * CT Abdomen Pelvis with IV Contrast (02/22/2025 11:25 AM CDT) Anatomical Region Laterality Modality Abdomen, Pelvis, Abdominal R ST LOS, Abdominal ARZ LOS, Abdominal FLA LOS N/A Computed Tomography 02/22/2025 11:3 1 AM CDT Impressions 02/22/2025 12:56 PM CDT Metastatic disease progression since CT 11/30/2024 with interval enlargement of multiple pulmonary metastases, hepatic metastases, peritoneal and abdominal wall metastatic implants, with increased small volume ascites. Narrative 02/22/2025 12:56 PM CDT EXAM: CT CHEST WITH IV CONTRAST, CT ABDOMEN PELVIS WITH IV CONTRAST COMPARISON: CT 11/30/2024, 10/05/2024, 07/27/2024, 05/28/2024 FINDINGS: Lungs/Airways/Pleura: Patent tracheobronchial tree. No focal consolidation. No pleural effusion or pneumothorax. Enlargement of multiple solid pulmonary nodules, including 9 mm right upper lobe nodule (4/194), previously 3 mm, 9 mm left lower lobe nodule (4/347), previously 2 mm, and 11 mm medial left lower lobe nodule (4/353), previously 6 mm. Mediastinum: Unremarkable visualized thyroid gland. Right chest wall Port-A-Cath terminates in the high right atrium. Normal heart size. No pericardial effusion. Normal caliber great vessels. No thoracic adenopathy. Unremarkable esophagus. Liver: Similar post ablation changes. Increased number and size of hypoattenuating hepatic lesions, including new 0.6 cm left hepatic lesion (1/60) and increased size of 1.4 cm right hepatic lesion (1/118), previously 0.5 cm. Gallbladder/Biliary System: No biliary ductal dilatation. 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 No pancreatic ductal dilatation. Spleen: Unremarkable. Adrenal Glands: Unremarkable. Kidneys & Ureters: No hydronephrosis. Right renal cyst. Bladder: Mildly distended. Pelvis: Status post hysterectomy. Pelvic phleboliths. GI/Peritoneum: Prior right hemicolectomy and omentectomy. No abnormally dilated bowel loop. Enlargement of multiple peritoneal implants, including 2.3 cm implant anterior to the left hepatic lobe (94), previously 1.1 cm. Increased small volume ascites. No free air. Vessels: Nonaneurysmal abdominal aorta. Lymph Nodes: No abdominopelvic adenopathy. Musculoskeletal: No acute or aggressive osseous lesion. Spondylosis with unchanged grade 1 anterolisthesis of L4 on L5. Increased size of multiple metastatic implants within the anterior abdominal wall musculature and along the midline abdominal wall incision, including 4.0 cm left lower anterior abdominal wall mass (233), previously 2.9 cm. 3D maximum intensity projection (MIP) images were created on a dependent workstation as ordered by the treating provider and reviewed by the radiologist to increase sensitivity for detection of pulmonary nodules. Procedure Note Denzel Warner M.D. - 02/22/2025 EXAM: CT CHEST WITH IV CONTRAST, CT ABDOMEN PELVIS WITH IV CONTRAST COMPARISON: CT 11/30/2024, 10/05/2024, 07/27/2024, 05/28/2024 FINDINGS: Lungs/Airways/Pleura: Patent tracheobronchial tree. No focalconsolidation. No pleural effusion or pneumothorax. Enlargement ofmultiple solid pulmonary nodules, including 9 mm right upper lobe nodule(4/194), previously 3 mm, 9 mm left lower lobe nodule (4/347), previously2 mm, and 11 mm medial left lower lobe nodule (4/353), previously 6 mm. Mediastinum: Unremarkable visualized thyroid gland. Right chest [id number] terminates in the high right atrium. Normal heart size. Nopericardial effusion. Normal caliber great vessels. No thoracicadenopathy. Unremarkable esophagus. Liver: Similar post ablation changes. Increased number and size ofhypoattenuating hepatic lesions, including new 0.6 cm left hepatic lesion(1/60) and increased size of 1.4 cm right hepatic lesion (/118),previously 0.5 cm. Gallbladder/Biliary System: No biliary ductal dilatation. Pancreas: Stable 0.3 cm pancreatic body/proximal tail hypodensity (105),possibly a small branch duct IPMN. No pancreatic ductal dilatation. Spleen: Unremarkable. Adrenal Glands: Unremarkable. Kidneys & Ureters: No hydronephrosis. Right renal cyst. Bladder: Mildly distended. Pelvis: Status post hysterectomy. Pelvic phleboliths. GI/Peritoneum: Prior right hemicolectomy and omentectomy. No abnormallydilated bowel loop. Enlargement of multiple peritoneal implants, including2.3 cm implant anterior to the left hepatic lobe (), previously 1.1cm. Increased small volume ascites. No free air. Vessels: Nonaneurysmal abdominal aorta. Lymph Nodes: No abdominopelvic adenopathy. Musculoskeletal: No acute or aggressive osseous lesion. Spondylosis withunchanged grade 1 anterolisthesis of L4 on L5. Increased size of multiplemetastatic implants within the anterior abdominal wall musculature andalong the midline abdominal wall incision, including 4.0 cm left loweranterior abdominal wall mass (233), previously 2.9 cm. 3D maximum intensity projection (MIP) images were created on a dependentworkstation as ordered by the treating provider and reviewed by theradiologist to increase sensitivity for detection of pulmonary nodules. IMPRESSION: Metastatic disease progression since CT 11/30/2024 with interval enlargementof multiple pulmonary metastases, hepatic metastases, peritoneal andabdominal wall metastatic implants, with increased small volume ascites. us Kadeem Marshall P.A.-C., M.S. IMG CT PROCEDURES F inal Result * CT Chest with IV Contrast (02/22/2025 11:25 AM CDT) Anatomical Region Laterality Modality Chest, Thoracic RST LOS, Tho racic ARZ LOS, Thoracic ARZ LOS, Thoracic FLA LOS N/A Computed Tomography 02/22/2025 11:2 3 AM CDT Impressions 02/22/2025 12:56 PM CDT Metastatic disease progression since CT 11/30/2024 with interval enlargement of multiple pulmonary metastases, hepatic metastases, peritoneal and abdominal wall metastatic implants, with increased small volume ascites. Narrative 02/22/2025 12:56 PM CDT EXAM: CT CHEST WITH IV CONTRAST, CT ABDOMEN PELVIS WITH IV CONTRAST COMPARISON: CT 11/30/2024, 10/05/2024, 07/27/2024, 05/28/2024 FINDINGS: Lungs/Airways/Pleura: Patent tracheobronchial tree. No focal consolidation. No pleural effusion or pneumothorax. Enlargement of multiple solid pulmonary nodules, including 9 mm right upper lobe nodule (4/194), previously 3 mm, 9 mm left lower lobe nodule (4/347), previously 2 mm, and 11 mm medial left lower lobe nodule (4/353), previously 6 mm. Mediastinum: Unremarkable visualized thyroid gland. Right chest wall Port-A-Cath terminates in the high right atrium. Normal heart size. No pericardial effusion. Normal caliber great vessels. No thoracic adenopathy. Unremarkable esophagus. Liver: Similar post ablation changes. Increased number and size of hypoattenuating hepatic lesions, including new 0.6 cm left hepatic lesion (/60) and increased size of 1.4 cm right hepatic lesion (1/118), previously 0.5 cm. Gallbladder/Biliary System: No biliary ductal dilatation. 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 No pancreatic ductal dilatation. Spleen: Unremarkable. Adrenal Glands: Unremarkable. Kidneys & Ureters: No hydronephrosis. Right renal cyst. Bladder: Mildly distended. Pelvis: Status post hysterectomy. Pelvic phleboliths. GI/Peritoneum: Prior right hemicolectomy and omentectomy. No abnormally dilated bowel loop. Enlargement of multiple peritoneal implants, including 2.3 cm implant anterior to the left hepatic lobe (), previously 1.1 cm. Increased small volume ascites. No free air. Vessels: Nonaneurysmal abdominal aorta. Lymph Nodes: No abdominopelvic adenopathy. Musculoskeletal: No acute or aggressive osseous lesion. Spondylosis with unchanged grade 1 anterolisthesis of L4 on L5. Increased size of multiple metastatic implants within the anterior abdominal wall musculature and along the midline abdominal wall incision, including 4.0 cm left lower anterior abdominal wall mass (/233), previously 2.9 cm. 3D maximum intensity projection (MIP) images were created on a dependent workstation as ordered by the treating provider and reviewed by the radiologist to increase sensitivity for detection of pulmonary nodules. Procedure Note Denzel Warner M.D. - 02/22/2025 EXAM: CT CHEST WITH IV CONTRAST, CT ABDOMEN PELVIS WITH IV CONTRAST COMPARISON: CT 11/30/2024, 10/05/2024, 07/27/2024, 05/28/2024 FINDINGS: Lungs/Airways/Pleura: Patent tracheobronchial tree. No focalconsolidation. No pleural effusion or pneumothorax. Enlargement ofmultiple solid pulmonary nodules, including 9 mm right upper lobe nodule(4/194), previously 3 mm, 9 mm left lower lobe nodule (4/347), previously2 mm, and 11 mm medial left lower lobe nodule (4/353), previously 6 mm. Mediastinum: Unremarkable visualized thyroid gland. Right chest [id number] terminates in the high right atrium. Normal heart size. Nopericardial effusion. Normal caliber great vessels. No thoracicadenopathy. Unremarkable esophagus. Liver: Similar post ablation changes. Increased number and size ofhypoattenuating hepatic lesions, including new 0.6 cm left hepatic lesion(60) and increased size of 1.4 cm right hepatic lesion (/118),previously 0.5 cm. Gallbladder/Biliary System: No biliary ductal dilatation. Pancreas: Stable 0.3 cm pancreatic body/proximal tail hypodensity (105),possibly a small branch duct IPMN. No pancreatic ductal dilatation. Spleen: Unremarkable. Adrenal Glands: Unremarkable. Kidneys & Ureters: No hydronephrosis. Right renal cyst. Bladder: Mildly distended. Pelvis: Status post hysterectomy. Pelvic phleboliths. GI/Peritoneum: Prior right hemicolectomy and omentectomy. No abnormallydilated bowel loop. Enlargement of multiple peritoneal implants, including2.3 cm implant anterior to the left hepatic lobe (), previously 1.1cm. Increased small volume ascites. No free air. Vessels: Nonaneurysmal abdominal aorta. Lymph Nodes: No abdominopelvic adenopathy. Musculoskeletal: No acute or aggressive osseous lesion. Spondylosis withunchanged grade 1 anterolisthesis of L4 on L5. Increased size of multiplemetastatic implants within the anterior abdominal wall musculature andalong the midline abdominal wall incision, including 4.0 cm left loweranterior abdominal wall mass (1/233), previously 2.9 cm. 3D maximum intensity projection (MIP) images were created on a dependentworkstation as ordered by the treating provider and reviewed by theradiologist to increase sensitivity for detection of pulmonary nodules. IMPRESSION: Metastatic disease progression since CT 11/30/2024 with interval enlargementof multiple pulmonary metastases, hepatic metastases, peritoneal andabdominal wall metastatic implants, with increased small volume ascites. us Kadeem Marshall P.A.-C. M.S. IMG CT PROCEDURES F inal Result documented in this encounter Visit Diagnoses Diagnosis Secondary Malignant Neoplasm Liver (HCC) documented in this encounter Administered Medications Inactive Administered Medications - up to 3 most recent administrations Medication Order MAR Action Action Date Dose Rate Site iohexoL 300 mg iodine/mL solution 100 mL (Omnipaque) 100 mL, intravenous, Once in imaging, contrast, Starting on Felisha 02/22/25 at 1102, For 1 dose, If administered oral then dilute in 900 mL water Given 02/22/2025 11:20 AM CDT 100 mL sodium chloride 0.9 % flush 76 mL 76 mL, intravenous, Once, On Felisha 02/22/25 at 1130, For 1 dose Given 02/22/2025 11:19 AM CDT 76 mL sodium chloride 0.9 % injection 10 mL 10 mL, intravenous, Once, On Felisha 02/22/25 at 1130, For 1 dose Given 02/22/2025 11:19 AM CDT 10 mL documented in this encounter Additional Health Concerns Infection Onset Date Last Indicated Resolved Time Protective Environment 06/02/2024 06/02/2024 documented as of this encounter Care Teams Lead Customer Service Representative Relationship Specialty Start Date End Date Elsewhere, Pcp PCP - General Internal Medicine 03/08/24 documented as of this encounter
--- OUTSIDE RECORDS SUMMARY | 2025-02-23 05:45 | XMS_ITS | Encounter Summary ---
Author Organization [facility] Address [address] [place] [address] Care Team Providers Care Cooky Machine Operator Name Role Phone Elsewhere, Pcp [...] 10MG INJ Preet Alonso M.D. [address] [place] [address] Phone: tel: fax: Department of Oncology in [place], [place] [address] [place] [address] Phone: tel: Referral ID Status Reason Start Date Expiration Date Visits Re quested Visits Authorized [id number] Closed 09/06/2024 09/06/2025 99 99 Encounter Details Date Type Department Care Team (Late st Contact Info) Description 02/23/2025 6:45 AM CDT Lab Department of Oncology in [place], [place] [address] [place] [phone] Kadeem Marshall P.A.-C., M.S. [address] [place] [address] Malignant Neoplasm Of Cecum (HCC) (Primary Dx); Secondary Malignant Neoplasm Peritoneum (HCC); Secondary Malignant Neoplasm Liver (HCC) Social History Tobacco Use Types Packs/Day Years Used Date Smoking Tobacco: Never Passive Smoke Exposure: Never Smokeless Tobacco: Never Alcohol Use Standard Drinks/Week Comments Not Currently 0 (1 standard drink = 0.6 oz pur e alcohol) [facility] Utilities Answer Date Recorded In the past 12 months has e [employer], gas, oil, or water [employer] threatened to shut off services in your [...] your living situation today? I have a [facility] place to live 2024 Education Answer [...] st Contact Info) Description 03/12/2025 3:30 PM PRINTING PRESSMAN Appointment Department of Radiation Oncology in [place], [place] [address] [place] [phone] Faith Ellis M.D. [address] [place] [phone] 03/15/2025 8:30 AM PRINTING PRESSMAN Lab Department of Laboratory Medicine and Pathology, [facility] in [place], [place] [address] [place] [phone] Kadeem Marshall P.A.-C., M.S. [address] [place] [phone] 03/15/2025 9:40 AM PRINTING PRESSMAN Education Department of Oncology in [address] [phone] Kadeem Marshall P.A.-C., M.S. [address] [place] [phone] 03/15/2025 10:30 AM PRINTING PRESSMAN Infusion Department of Oncology in [place], [place] [address] [place] [phone] Kadeem Marshall P.A.-C., M.S. [address] [place] [phone] 04/05/2025 8:30 AM PRINTING PRESSMAN Lab Department of Oncology in [place], [place] [address] [place] [phone] Kadeem Marshall P.A.-C., M.S. [address] [place] [phone] 04/05/2025 10:40 AM PRINTING PRESSMAN Office Visit Department of Oncology in [place], [place] [address] [place] [phone] Kadeem Marshall P.A.-C., M.S. [address] [place] [phone] 04/05/2025 1:00 PM PRINTING PRESSMAN Infusion Department of Oncology in [place], [place] [address] [place] [phone] Kadeem Marshall P.A.-C., M.S. [address] [place] [phone] 04/30/2025 9:20 AM PRINTING PRESSMAN Office Visit Department of Oncology in [address] [phone] Kadeem Marshall P.A.-C., M.S. [address] [place] [phone] documented as of this encounter Procedures Procedure [...] M.S. LAB BLOOD ADD-ON Fi nal Result [facility] [address] [place] [address], [facility] [address] [place] [address] * (ABNORMAL) CRP (C-Reactive Protein) (02/23/2025 6:58 AM CDT) C-Reactive Protein (CRP), S 13.3(H) <5.0 mg/L 02/23/2025 7:51 AM CDT DTL Blood (Blood, Venous) 02/23/2025 6:58 AM CDT 02/23/2025 7:11 AM CDT us Kadeem Marshall P.A.-C. MAlpeshS. LAB BLOOD ADD-ON Fi nal Result [facility] [address] [place] [address], [facility] [address] [place] [address] * (ABNORMAL) CEA (Carcinoembryonic Antigen) (02/23/2025 6:58 AM CDT) Carcinoembryonic Ag (CEA), S 11.1(H) ng/mL 02/23/2025 11:11 AM CDT [facility] Comment: ----REFERENCE VALUE---- <=3.0 (Non-smokers) Some smokers may have elevated CEA, usually <5.0. ----ADDITIONAL INFORMATION---- The testing method is an immunoenzymatic assay manufactured by [employer]. and performed on the [employer] DxI 800. Values obtained with different assay methods or kits may be different and cannot be used interchangeably. Test results cannot be interpreted as absolute evidence for the presence or absence of malignant disease. Blood (Blood, Venous) 02/23/2025 6:58 AM CDT 02/23/2025 10:07 AM CDT us Kadeem Marshall P.A.-C., M.S. LAB BLOOD ADD-ON Fi nal Result [facility] [address] [place] [address] [facility] [address] [place] [address] * Bilirubin, Direct (02/23/2025 6:58 AM CDT) Bilirubin, Direct, S 0.1 0.0 - 0.3 mg/dL 02/23/2025 7:51 AM CDT [facility] Blood (Blood, Venous) 02/23/2025 6:58 AM CDT 02/23/2025 7:11 AM CDT us Kadeem Marshall P.A.-C., MAlpeshS. LAB BLOOD ADD-ON Fi nal Result [facility] [address] [place] [address], [facility] DTL [facility] [address] [place] [address] * (ABNORMAL) Comprehensive Metabolic Panel (02/23/2025 6:58 AM CDT) [facility] Potassium, S 4.0 3.6 - 5.2 mmol/L [...] M.S. LAB BLOOD ADD-ON Fi nal Result [address] [address], [facility] [address] * (ABNORMAL) CBC with Differential, Blood (02/23/2025 6:58 AM CDT) Hemoglobin 12.1 11.6 - 15.0 g/dL 02/23/2025 [...] ADD-ON Fi nal Result Performing Organization Address City/[facility] Co de Phone Number [facility] [address] 200 [place] [address] * Magnesium (02/23/2025 6:58 AM CDT) [facility] Magnesium, S 1.8 1.7 - 2.3 mg/dL 02/23/2025 7:51 AM CDT DTL Blood (Blood, Venous) 02/23/2025 6:58 AM CDT 02/23/2025 7:11 AM CDT us Kadeem Marshall P.A.-C., M.S. LAB BLOOD ADD-ON Fi nal Result Performing Organization Address City/[facility]/ZIP Co de Phone Number [facility] [address] 200 [place] [address] documented in this encounter Visit Diagnoses Diagnosis [...] documented as of this encounter Care Teams Cooky Machine Operator Relationship Specialty Start Date End Date Elsewhere, Pcp PCP - General Internal Medicine 03/08/24 documented as of this encounter
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
--- OUTSIDE RECORDS SUMMARY | 2025-02-23 09:00 | XMS_ITS | Encounter Summary ---
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 [address] [place] [phone] Phone: tel: fax: [facility] Referral ID Status Reason Start Date Expiration Date Visits Re quested Visits Authorized [id number] Closed 02/23/2025 09/06/2025 1 1 Encounter Details Date Type Department Care Team (Late st Contact Info) Description 02/23/2025 10:00 AM CDT Infusion Department of Oncology in [place], [place] [address] [place] [phone] Kadeem Marshall P.A.-C., M.S. [address] [place] [phone] Malignant Neoplasm Of Cecum (HCC); Secondary Malignant Neoplasm Peritoneum (HCC) Social History Tobacco Use Types Packs/Day Years Used Date Smoking Tobacco: Never Passive Smoke Exposure: Never Smokeless Tobacco: Never Alcohol Use Standard Drinks/Week Comments Not Currently 0 (1 standard drink = 0.6 oz pur e alcohol) [facility] Utilities Answer Date Recorded In [...] your living situation today? I have a [facility] place to [facility] 2024 Education Answer Date [...] st Contact Info) Description 03/12/2025 3:30 PM CHILD SUPPORT SPECIALIST Appointment Department of Radiation Oncology in [place], [place] [address] [place] [address] Faith Ellis M.D. [address] [place] [phone] 03/15/2025 8:30 AM CHILD SUPPORT SPECIALIST Lab Department of Laboratory Medicine and Pathology, [facility], in [place], [place] [address] [place] [phone] Kadeem Marshall P.A.-C., M.S. [address] [place] [phone] 03/15/2025 9:40 AM CHILD SUPPORT SPECIALIST Education Department of Oncology in [place], [place] [address] [place] [phone] Kadeem Marshall P.A.-C., M.S. [address] [place] [phone] 03/15/2025 10:30 AM CHILD SUPPORT SPECIALIST Infusion Department of Oncology in [place], [place] [address] [place] [phone] Kadeem Marshall P.A.-C., M.S. [address] [place] [phone] 04/05/2025 8:30 AM CHILD SUPPORT SPECIALIST Lab Department of Oncology in [place], [place] [address] [place] [phone] Kadeem Marshall P.A.-C., M.S. [address] [place] [phone] 04/05/2025 10:40 AM CHILD SUPPORT SPECIALIST Office Visit Department of Oncology in [place], [place] [address] [place] [phone] Kadeem Marshall P.A.-C., M.S. [address] [place] [phone] 04/05/2025 1:00 PM CHILD SUPPORT SPECIALIST Infusion Department of Oncology in [place], [place] [address] [place] [phone] Kadeem Marshall P.A.-C., M.S. [address] [place] [phone] 04/30/2025 9:20 AM CHILD SUPPORT SPECIALIST Office Visit Department of Oncology in [place], [place] [address] [place] [phone] Kadeem Marshall P.A.-C., M.S. 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
--- OUTSIDE RECORDS SUMMARY | 2025-03-05 12:43 | XMS_ITS | Encounter Summary ---
Author Organization [facility] Address [address] [place] [address] Care Team Providers [employer] Worker Name Role Phone Elsewhere, Pcp Primary Care Provider Unavailabl e Reason for Visit * Reason Comments Abdominal Pain Ab pain for several weeks and just getting worse, endorses bloating too. Abdominal cancer hx. 02/02 pain. Diarrhea last 5 days, west urination Encounter Details Date Type Department Care Team (Late st Contact Info) Description 03/05/2025 12:43 PM UPKEEP WORKER - 03/05/2025 3:05 PM UPKEEP WORKER Emergency [facility] [address] [place] [phone] Tyesha Rose, MARKETING COMMUNICATIONS MANAGER, C.N.P. [address] [place] [phone] Abdominal Pain (Primary Dx); Ascites Malignant (HCC) Discharge Disposition: Home or Self Care Social History Tobacco Use Types Packs/Day Years Used Date Smoking Tobacco: Never Passive Smoke Exposure: Never Smokeless Tobacco: Never Alcohol Use Standard Drinks/Week Comments Not Currently 0 (1 standard drink = 0.6 oz pur e alcohol) [facility] Utilities Answer Date Recorded In [...] your living situation today? I have a [facility] place to live 2024 Education [...] Sign Reading Time Taken Comments Blood Pressure 132/76 03/05/2025 1:43 PM UPKEEP WORKER Pulse 92 03/05/2025 1:43 PM UPKEEP WORKER Temperature 36.5 C (97.7 F) 03/05/2025 12:39 PM UPKEEP WORKER Respiratory Rate - - Oxygen Saturation 95% 03/05/2025 1:43 PM UPKEEP WORKER Inhaled Oxygen Concentration - - Weight 68.1 kg (150 lb 2.1 oz) 03/05/2025 12:39 PM UPKEEP WORKER Height - - Body Mass Index 27.45 02/23/2025 9:00 AM CDT documented in this encounter Discharge Instructions * Discharge Instructions* Tyesha Rose, DALIA, C.N.P. - 03/05/2025 2:36 PM UPKEEP WORKER For pain you can take your celebrex (celocoxib) and Tylenol. Take your home oxycodone as needed forpain not controlled by these medications. You can try 1/2 tab to see if that helps enough, if not take a full tab. The oxycodone can make you drowsy and increase your risk for falls. It can also makeyou constipated, so use laxatives if needed to make sure you don't have this problem on top of every thing else. Mild interval progression of multiple hepatic metastases which have slightly increased in size from02/22/2025. For reference, a lesion in hepatic segment 8 now measures 22 mm (series 4, image 29), previously measuring 15 mm. Post ablation changes in the right hepatic lobe. Serosal metastasis along the lateral aspect of the spleen has slightly increased in size now measuring 16 mm (series 4, image 27), previously measuring 14 mm. Scattered peritoneal and abdominal wall metastatic implants are grossly unchanged. For reference, in the left lower anterior abdominal wall is a 27 x 45 mm metastatic implant (series 4, image 88). Increased now moderate volume abdominopelvic ascites. Prior right hemicolectomy and omentectomy. No bowel obstruction. Hysterectomy. The abdominal vasculature is widely patent. Lower lumbar facet arthropathy. Redemonstrated are multiple metastatic pulmonary nodules in the visualized lower lungs. Incompletely imaged Port-A-Cath with tip at the SVC/RA junction. CT scan results IMPRESSION: Since 02/22/2025, mild interval progression of the metastatic disease in the abdomen and pelvis with increased size of multiple hepatic and serosal metastases. The scattered peritoneal and abdominal wall metastatic implants are grossly unchanged. Increased now moderate volume abdominopelvic ascites. Your scan today showed increase in the fluid in your abdomen (ascites). Now a moderate level from small volume just 12 days ago. Blood work, your urine had bilirubin and protein, otherwise normal. Your chemistry panel: your sodium is 131 and your chloride is 91, otherwise normal. CBC normal, lipase normal, lactate normal Our GI surgeon in [place] can see you tomorrow to drain the fluid. I haven't heard back from him with a time. Either his office or I will call you this afternoon with a time. His name is Dr. Zhang, GI surgeon in [place]. EP WORKER EP WORKER documented in this encounter Medications at Time of Discharge acetaminophen (TYLENOL) 500 mg tablet Take 2 tablets (1,000 mg total) by mouth every 6 (six) hours as needed for pain. 06/03/2023 ascorbic acid, vitamin C, (ascorbic acid) 500 mg tablet Take 500 mg by mouth daily. cholecalciferol (VITAMIN D3) 50 mcg (2,000 Unit) capsule Take 50 mcg by mouth daily. IVERMECTIN ORAL Take 24 mg by mouth 2 (two) times a day. 24 mg in the morning and evening, 4 days on 3 days off LORazepam (Ativan) 0.5 mg tablet Take 1 tablet (0.5 mg total) by mouth 2 (two) times a day as needed (nausea). Post chemotherapy 20 tablet 11/30/2024 MAGNESIUM GLYCINATE ORAL Take by mouth at bedtime. Per Patient: 2 at bedtime MEBENDAZOLE ORAL Take 210 mg by mouth 2 (two) times a day. In morning and evening, 4 days on 3 days off oxyCODONE (ROXICODONE) 5 mg immediate release tabletIndication [...] Vitamin D, 2 pumps anytime during day UNABLE TO FIND Take by mouth. Vitamin D with K2, 2 capsules daily with breakfast (5,000 iu each) UNABLE TO FIND Take by mouth. Methylmaster, Methyl B12, two at breakfast UNABLE TO FIND Take by mouth daily with morning meal. Biocidin Liquid, 10 drops at breakfast cholecalciferol, vitD3,/vit K2 (VITAMIN D3-VITAMIN K2 ORAL) [...] day as needed for flatulence (Bloating). 08/03/2022 tucatinib (Tukysa) 50 mg tabletIndication s:Malignant Neoplasm Of Cecum (HCC) Take 5 tablets (250 mg total) by mouth 2 (two) times a day. Take approximately 12hrs apart and at same time each day with or without a meal. Swallow tabs whole and do not chew, crush, or split prior to swallowing. 300 tablet 03/09/2025 5 documented as of this encounter ED Notes * Tyesha Rose, DALIA, C.N.P. - 03/05/2025 12:43 PM CST The patient verbally consented to an audio recording of their visit to assist with the completion of documentation. SUBJECTIVE CHIEF COMPLAINT/REASON FOR VISIT Abdominal Pain (Ab pain for several weeks and just getting worse, endorses bloating too. Abdominal cancer hx. 02/02 pain. Diarrhea last 5 days, west urination ) HISTORY OF PRESENT ILLNESS History of Present Illness Hayley Unger is a 64 year old female who presents with abdominal bloating and pain. She has been experiencing worsening abdominal pain and bloating, which she attributes to fluid buildup. The pain is accompanied by a sensation of pressure in her abdomen and back, exacerbated by eating. She also experiences heartburn and has vomited recently. She described swelling or pressure in her abdomen, but was unsure if she would call it shortness of breath. She has a history of fluid buildup, previously relieved by paracentesis. A recent CT scan showed a small amount of fluid, but she feels more bloated now than before. She is awaiting a call for radiation treatment, which has not yet been scheduled. She is managing a third-degree wound from a thermal field treatment, currently being treated at a wound care unit. She has an appointment scheduled for and reports that the wound is healing without infection. She has been experiencing diarrhea for the past five days. No fever, although she has felt warm. Her current medications include Celebrex (celecoxib) taken at 9:30 AM, which is no longer effectivefor her pain. She has also tried Tylenol without relief. She has oxycodone at home, which she takesat night as it helps her sleep but does not alleviate the pressure. She has not taken it recently. REVIEW OF SYSTEMS OBJECTIVE Initial Vitals [03/05/25 1239] Temperature 36.5 ??C Pulse Rate (!) 112 Heart Rate Resp Blood Pressure 155/88 SpO2 97 % Pain Score 10 - Worst possible pain PHYSICAL EXAMINATION Constitutional: Nursing note and vitals reviewed. No distress. HENT: Head: Normocephalic and atraumatic. Mouth/Throat: Mucous membranes are moist. Eyes: Conjunctivae are normal. Neck: Neck supple. Cardiovascular: Normal rate, regular rhythm and normal heart sounds. Capillary refill: takes less than 3 secondsEdema: no edema noted Pulmonary/Chest: Effort normal and breath sounds normal. There is normal air entry. No respiratory distress. Abdominal: Soft. Bowel sounds are normal. exhibits distension.There is abdominal tenderness. There is no rebound and no guarding. Diffuse abdominal tenderness without peritoneal signs Musculoskeletal: General: No deformity or edema. Normal range of motion. Cervical back: Normal range of motion and neck supple. Neurological: Alert and oriented to person, place, and time. Skin: Skin is warm, dry and intact. She is not diaphoretic. Psychiatric: She has a normal mood and affect. Behavior is normal. Judgment and thought content normal. ASSESSMENT/PLAN Patient had CT abdomen pelvis completed 11 days ago, showing metastatic disease progression since November 30, 2024, with interval enlargement of multiple pulmonary metastases, hepatic metastases peritoneal and abdominal wall metastatic implants with increased small volume ascites. She contacted her on cology team about her abdominal pain, they recommended a radiation oncology consult noting that there is a lesion that correlates with location of patient's pain. Ct scan today shows now moderate volume ascites. Lungs are clear, she is not short of breath. Afebrile, pain controlled with hydromorphone in department, Discussed with GI provider employee relations advisor, he is able to see her tomorrow for a paracentesis. Discussed options with patient, she prefers to follow up with him tomorrow for the procedure. This is not an emergent procedure so that is reasonable for her to have this done outpatient tomorrow. 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 She reported a history of symptomatic ascites previously relieved by paracentesis, and is awaiting radiation therapy. Exam revealed significant abdominal distension and a healing third-degree abdominal burn from prior thermal field treatment. She denied fever but endorsed heartburn and difficulty eating due to abdominal pressure. ED Course as of 03/05/25 1629 WedMar 05, 2025 1324 Urinalysis without evidence of infection 1327 Complete blood count unremarkable 1345 Lactate: 1.1 1404 IMPRESSION: Since 02/22/2025, mild interval progression of the metastatic disease in the abdomen and pelvis with increased size of multiple hepatic and serosal metastases. The scattered peritoneal and abdominal wall metastatic implants are grossly unchanged. Increased now moderate volume abdominopelvic ascites 1407 Lipase, P: 16 1408 Chemistry panel mild hyponatremia which is new from prior. Otherwise unremarkable 1626 Called patient to let her know to go to Same Day Surgery clinic at [place] at 11 am tomorrow morning, no restrictions. Per Dr. Gill. 1627 I offered to complete paracentesis with patient in [place] emergency department and gave her the option to have it done with a surgeon in [place]. Final Diagnoses: as of 03/05/25 1629 Abdominal Pain Ascites Malignant (HCC) Tyesha Rose APRN, C.N.P. 03/05/25 1629 EP WORKER documented in this encounter Plan of Treatment Upcoming Encounters Date Type Department Care Team (Late st Contact Info) Description 03/12/2025 3:30 PM UPKEEP WORKER Appointment Department of Radiation Oncology in [address] [phone] Faith Ellis M.D. [address] [place] [phone] 03/15/2025 8:30 AM UPKEEP WORKER Lab Department of Laboratory Medicine and Pathology, [facility], in [place], [place] [address] [place] [phone] Kadeem Marshall P.A.-C., M.S. [address] [place] [phone] 03/15/2025 9:40 AM UPKEEP WORKER Education Department of Oncology in [place], [place] [address] [place] [phone] Kadeem Marshall P.A.-C., M.S. [address] [place] [phone] 03/15/2025 10:30 AM UPKEEP WORKER Infusion Department of Oncology in [place], [place] [address] [place] [phone] Kadeem Marshall P.A.-C., M.S. [address] [place] [phone] 04/05/2025 8:30 AM UPKEEP WORKER Lab Department of Oncology in [place], [place] [address] [place] [phone] Kadeem Marshall P.A.-C., M.S. [address] [place] [phone] 04/05/2025 10:40 AM UPKEEP WORKER Office Visit Department of Oncology in [place], [place] [address] [place] [phone] Kadeem Marshall P.A.-C., M.S. [address] [place] [phone] 04/05/2025 1:00 PM UPKEEP WORKER Infusion Department of Oncology in [place], [place] [address] [place] [phone] Kadeem Marshall P.A.-C., M.S. [address] [place] [phone] 04/30/2025 9:20 AM UPKEEP WORKER Office Visit Department of Oncology in [place], [place] [address] [place] [phone] Kadeem Marshall P.A.-C., M.S. [address] [place] [phone] documented as of this encounter Procedures Procedure Name Priority Date/Time Associated Diagnosis Comments CT ABDOMEN PELVIS WITH IV CONTRAST RAD - Semiurgent (Fast; most ED patients; some inpatients) 03/05/2025 1:42 PM UPKEEP WORKER CBC WITH DIFFERENTIAL, B STAT 03/05/2025 1:18 PM UPKEEP WORKER LIPASE, S/P STAT 03/05/2025 1:18 PM UPKEEP WORKER LACTATE, B/P STAT 03/05/2025 1:18 PM UPKEEP WORKER COMPREHENSIVE METABOLIC PANEL, S/P STAT 03/05/2025 1:18 PM UPKEEP WORKER URINALYSIS WITH MICROSCOPIC IF INDICATED, U STAT 03/05/2025 12:47 PM UPKEEP WORKER HC URINALYSIS AUTO W MICRO STAT 03/05/2025 12:47 PM UPKEEP WORKER documented in this encounter Results * CT Abdomen Pelvis with IV Contrast (03/05/2025 1:42 PM UPKEEP WORKER) Anatomical Region Laterality Modality Abdomen, Pelvis, Abdominal R ST LOS, Abdominal ARZ LOS, Abdominal FLA LOS N/A Computed Tomography 03/05/2025 1:35 PM UPKEEP WORKER Impressions 03/05/2025 1:56 PM UPKEEP WORKER Since 02/22/2025, mild interval progression of the metastatic disease in the abdomen and pelvis with increased size of multiple hepatic and serosal metastases. The scattered peritoneal and abdominal wall metastatic implants are grossly unchanged. Increased now moderate volume abdominopelvic ascites. Narrative 03/05/2025 1:56 PM UPKEEP WORKER EXAM: CT ABDOMEN PELVIS WITH IV CONTRAST COMPARISON: CT abdomen/pelvis with IV contrast 02/22/2025 FINDINGS: Mild interval progression of multiple hepatic metastases which have slightly increased in size from 02/22/2025. For reference, a lesion in hepatic segment 8 now measures 22 mm (series 4, image 29), previously measuring 15 mm. Post ablation changes in the right hepatic lobe. Serosal metastasis along the lateral aspect of the spleen has slightly increased in size now measuring 16 mm (series 4, image 27), previously measuring 14 mm. Scattered peritoneal and abdominal wall metastatic implants are grossly unchanged. For reference, in the left lower anterior abdominal wall is a 27 x 45 mm metastatic implant (series 4, image 88). Increased now moderate volume abdominopelvic ascites. Prior right hemicolectomy and omentectomy. No bowel obstruction. Hysterectomy. The abdominal vasculature is widely patent. Lower lumbar facet arthropathy. Redemonstrated are multiple metastatic pulmonary nodules in the visualized lower lungs. Incompletely imaged Port-A-Cath with tip at the SVC/RA junction. Procedure Note Apolinar Reynoso M.D. - 03/05/2025 EXAM: CT ABDOMEN PELVIS WITH IV CONTRAST COMPARISON: CT abdomen/pelvis with IV contrast 02/22/2025 FINDINGS: Mild interval progression of multiple hepatic metastases which haveslightly increased in size from 02/22/2025. For reference, a lesion inhepatic segment 8 now measures 22 mm (series 4, image 29), previouslymeasuring 15 mm. Post ablation changes in the right hepatic lobe. Serosal metastasis along the lateral aspect of the spleen has slightlyincreased in size now measuring 16 mm (series 4, image 27), previouslymeasuring 14 mm. Scattered peritoneal and abdominal wall metastatic implants are grosslyunchanged. For reference, in the left lower anterior abdominal wall is a27 x 45 mm metastatic implant (series 4, image 88). Increased now moderatevolume abdominopelvic ascites. Prior right hemicolectomy and omentectomy. No bowel obstruction. Hysterectomy. The abdominal vasculature is widely patent. Lower lumbarfacet arthropathy. Redemonstrated are multiple metastatic pulmonary nodules in the visualizedlower lungs. Incompletely imaged Port-A-Cath with tip at the SVC/RAjunction. IMPRESSION: Since 02/22/2025, mild interval progression of the metastatic disease inthe abdomen and pelvis with increased size of multiple hepatic and serosalmetastases. The scattered peritoneal and abdominal wall metastaticimplants are grossly unchanged. Increased now moderate volumeabdominopelvic ascites. us Tyesha Rose APRN, C.N.P. IMG CT PROCEDURE S Final Result * Lipase (03/05/2025 1:18 PM UPKEEP WORKER) Lipase, P 16 13 - 60 U/L 03/05/2025 2: 01 PM UPKEEP WORKER CNFL Blood (Blood, Venous) 03/05/2025 1:18 PM UPKEEP WORKER 03/05/2025 1:20 PM UPKEEP WORKER Tyesha Rose APRN, C.N.P. LAB BLOOD ADD-ON Final Result Performing Organization Address City/[facility]/ZIP Co de Phone Number [facility] [address] [place] [address], [facility] [place] [address] * Lactate (03/05/2025 1:18 PM UPKEEP WORKER) Lactate, P 1.1 0.5 - 2.2 mmol/L 03/05/2025 1:39 PM UPKEEP WORKER CNFL Blood (Blood, Venous) 03/05/2025 1:18 PM UPKEEP WORKER 03/05/2025 1:20 PM UPKEEP WORKER Tyesha Rose APRN, C.N.P. LAB BLOOD NON AD D-ON Final Result [facility] [address] [place] [phone], [facility] CNFL [facility] in [address] [phone] * (ABNORMAL) Comprehensive Metabolic Panel (03/05/2025 1:18 PM UPKEEP WORKER) Pathologist [facility] Potassium, P 4.4 3.6 - 5.2 mmol/L 03/05/2025 2:01 PM UPKEEP WORKER CNFL Sodium, P 131(L) 135 - 145 mmol/L 03/05/2025 2:01 PM UPKEEP WORKER CNFL Chloride, P 91(L) 98 - 107 mmol/L 03/05/2025 2:01 PM UPKEEP WORKER CNFL Bicarbonate, P 24 22 - 29 mmol/L 03/05/2025 2:01 PM UPKEEP WORKER CNFL Anion Gap, P 16(H) 7 - 15 03/05/2025 2:01 PM UPKEEP WORKER CNFL BUN (Blood Urea Nitrogen), P 8 6 - 21 mg/dL 03/05/2025 2:01 PM UPKEEP WORKER CNFL Creatinine 0.56(L) 0.59 - 1.04 mg/dL 03/05/2025 2:01 PM UPKEEP WORKER CNFL Estimated GFR (eGFR) >90 >=60 mL/min/BS A 03/05/2025 2:01 PM UPKEEP WORKER CNFL Comment: Estimated GFR calculated using the 2020 CKD_EPI creatinine equation. Calcium, Total, P 9.3 8.8 - 10.2 mg/dL 03/05/2025 2:01 PM UPKEEP WORKER CNFL Glucose, P 89 70 - 140 mg/dL 03/05/2025 2:01 PM UPKEEP WORKER CNFL Protein, Total, P 6.1(L) 6.3 - 7.9 g/dL 03/05/2025 2:01 PM UPKEEP WORKER CNFL Albumin, P 3.6 3.5 - 5.0 g/dL 03/05/2025 2:01 PM UPKEEP WORKER CNFL Aspartate Aminotransferase (AST), P 27 8 - 43 U/L 03/05/2025 2:01 PM UPKEEP WORKER CNFL Alkaline Phosphatase, P 79 35 - 104 U/L 03/05/2025 2:01 PM UPKEEP WORKER CNFL Alanine Aminotransferase (ALT), P 15 7 - 45 U/L 03/05/2025 2:01 PM UPKEEP WORKER CNFL Bilirubin, Total, P 0.3 0.0 - 1.2 mg/dL 03/05/2025 2:01 PM UPKEEP WORKER CNFL Blood (Blood, Venous) 03/05/2025 1:18 PM UPKEEP WORKER 03/05/2025 1:20 PM UPKEEP WORKER us Tyesha Rose APRN, C.N.P. LAB BLOOD ADD-ON Final Result [facility] [address] [place] [phone], [facility] CNFL [facility] [place] [address] * (ABNORMAL) CBC with Differential, Blood (03/05/2025 1:18 PM UPKEEP WORKER) Hemoglobin 12.9 11.6 - 15.0 g/dL 03/05/2025 1:25 PM UPKEEP WORKER CNFL Hematocrit 38.2 35.5 - 44.9 % 03/05/2025 1:25 PM UPKEEP WORKER CNFL Erythrocytes 4.09 3.92 - 5.13 x10(12)/L 03/05/2025 1:25 PM UPKEEP WORKER CNFL MCV 93.4 78.2 - 97.9 fL 03/05/2025 1:25 PM UPKEEP WORKER CNFL RBC Distrib Width 13.6 12.2 - 16.1 % 03/05/2025 1:25 PM UPKEEP WORKER CNFL Platelet Count 193 157 - 371 x10(9)/L 03/05/2025 1:25 PM UPKEEP WORKER CNFL Leukocytes 7.2 3.4 - 9.6 x10(9)/L 03/05/2025 1:25 PM UPKEEP WORKER CNFL Neutrophils 5.70 1.56 - 6.45 x10(9)/L 03/05/2025 1:25 PM UPKEEP WORKER CNFL Lymphocytes 0.90(L) 0.95 - 3.07 x10(9)/L 03/05/2025 1:25 PM UPKEEP WORKER CNFL Monocytes 0.52 0.26 - 0.81 x10(9)/L 03/05/2025 1:25 PM UPKEEP WORKER CNFL Eosinophils 0.04 0.03 - 0.48 x10(9)/L 03/05/2025 1:25 PM UPKEEP WORKER CNFL Basophils <0.04 0.01 - 0.08 x10(9)/L 03/05/2025 1:25 PM UPKEEP WORKER CNFL Blood (Blood, Venous) 03/05/2025 1:18 PM UPKEEP WORKER 03/05/2025 1:20 PM UPKEEP WORKER us Tyesha Rose APRN, C.N.P. LAB BLOOD ADD-ON Final Result [facility] [address] [place] [phone], [facility] [place] [address] * Microscopic Manual (03/05/2025 12:47 PM UPKEEP WORKER) White Blood Cells 4-10 /hpf 03/05/2025 1:11 PM UPKEEP WORKER CNFL Comment: ----REFERENCE VALUE---- Males: 0-3 Females: 0-10 Unknown: 0-10 Red Blood Cells Occ-2 0 - 2 /hpf 1:11 PM UPKEEP WORKER CNFL Dysmorphic Red Blood Cells <=25 <=25 % 03/05/2025 1:11 PM UPKEEP WORKER CNFL Hyaline Casts 21-30 /lpf 03/05/2025 1:11 PM UPKEEP WORKER CNFL Squamous Cells Occ-3 /hpf 03/05/2025 1:11 PM UPKEEP WORKER CNFL Bacteria None Seen None Seen 03/05/2025 1:11 PM UPKEEP WORKER CNFL Urine 03/05/2025 12:4 7 PM UPKEEP WORKER 03/05/2025 12:47 PM UPKEEP WORKER us Tyesha Rose APRN, C.N.P. LAB URINE ORDERA BLES Final Result Performing Organization Address [facility]/ZIP Co de Phone Number [facility] [address] [place] [phone], [facility] CNFL [address] [address] * (ABNORMAL) Urinalysis with Microscopic if Indicated: Urine, Midstream (03/05/2025 12:47 PM UPKEEP WORKER) Source Urine, Urine, Midstream 03/05/2025 12:47 PM UPKEEP WORKER CNFL Clarity Clear Clear 03/05/2025 12:50 PM UPKEEP WORKER CNFL Color Yellow 03/05/2025 12:50 PM UPKEEP WORKER CNFL Comment: ----REFERENCE VALUE---- Colorless Yellow Harriett Blood Negative Negative 03/05/2025 12:50 PM UPKEEP WORKER CNFL Nitrite Negative Negative 03/05/2025 12:50 PM UPKEEP WORKER CNFL Leukocyte Esterase Negative Negative 03/05/2025 12:50 PM UPKEEP WORKER CNFL Protein 30(A) mg/dL 03/05/2025 12:50 PM UPKEEP WORKER CNFL Comment: ----REFERENCE VALUE---- Negative Trace Glucose Negative Negative mg/dL 03/05/2025 12:50 PM UPKEEP WORKER CNFL Ketones, QI(U) >=80(A) Negative mg/dL 03/05/2025 12:50 PM UPKEEP WORKER CNFL Bilirubin Large(A) Negative 03/05/2025 12:50 PM UPKEEP WORKER CNFL pH 5.5 5.0 - 8.0 03/05/2025 12:50 PM UPKEEP WORKER CNFL Specific Carpio >=1.030 1.001 - 1.035 03/05/2025 12:50 PM UPKEEP WORKER CNFL Urobilinogen 0.2 0.2 - 1.0 mg/dL 03/05/2025 12:50 PM UPKEEP WORKER CNFL Urine (Urine, Midstream) 03/05/2025 12:47 PM UPKEEP WORKER 03/05/2025 12:47 PM UPKEEP WORKER us Tyesha Rose APRN, C.N.P. LAB URINE ORDERA BLES Final Result [facility] [address] [place] [phone], [facility] CNFL [facility] in [address] [phone] documented in this encounter Visit Diagnoses Diagnosis Abdominal Pain- Primary Ascites Malignant (HCC) documented in this encounter Administered Medications Inactive Administered Medications - up to 3 most recent administrations Medication Order MAR Action Action Date Dose Rate Site HYDROmorphone injection 0.5 mg (Dilaudid) 0.5 mg, intravenous, Every 30 min PRN, severe pain or score 7-10 of 10, Starting on Wed03/05/25 at 1311, For 3 doses Given 03/05/2025 1:18 PM UPKEEP WORKER 0.5 mg iohexoL 300 mg iodine/mL solution 100 mL (Omnipaque) 100 mL, intravenous, Once in imaging, contrast, Starting on Wed03/05/25 at 1313, For 1 dose Given 03/05/2025 1:38 PM UPKEEP WORKER 100 mL sodium chloride 0.9 % flush 75 mL 75 mL, intravenous, Once, On Wed03/05/25 at 1315, For 1 dose Given 03/05/2025 1:38 PM UPKEEP WORKER 75 mL sodium chloride 0.9 % injection 10 mL 10 mL, intravenous, Once, On Wed03/05/25 at 1315, For 1 dose Given 03/05/2025 1:38 PM UPKEEP WORKER 10 mL documented in this encounter Active and Recently Administered Medications Times are shown in UPKEEP WORKER. Scheduled Medication Order 03/03/2025 03/04/2025 03/05/2025 sodium chloride 0.9 % flush 75 mL (COMPLETED) 75 mL, intravenous, Once, On Wed03/05/25 at 1315, For 1 dose 1338 (Given - Provid er: Sathish Higginbotham(R)(CT), R.T.(R)) sodium chloride 0.9 % injection 10 mL (COMPLETED) 10 mL, intravenous, Once, On Wed03/05/25 at 1315, For 1 dose 1338 (Given - Provid er: Sathish Higginbotham(R)(CT), R.T.(R)) PRN Medication Order 03/03/2025 03/04/2025 03/05/2025 HYDROmorphone injection 0.5 mg (Dilaudid) 0.5 mg, intravenous, Every 30 min PRN, severe pain or score 7-10 of 10, Starting on Wed03/05/25 at 1311, For 3 doses 1318 (Given - Provid er: Daryl Cabezas, R.N.) iohexoL 300 mg iodine/mL solution 100 mL (Omnipaque) (COMPLETED) 100 mL, intravenous, Once in imaging, contrast, Starting on 03/05/25 at 1313, For 1 dose 1338 (Given - Provid er: Sathish Higginbotham(R)(CT), RClau(R)) documented in this encounter Additional Health Concerns Infection Onset Date Last Indicated Resolved Time Protective Environment 06/02/2024 06/02/2024 documented as of this encounter 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
--- OUTSIDE RECORDS SUMMARY | 2025-03-06 10:32 | XMS_ITS | Encounter Summary ---
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 [address] [place] [address] Phone: tel: fax: [facility] Region Referral ID Status Reason Start Date Expiration Date Visits Re quested Visits Authorized [id number] Closed 03/05/2025 06/05/2026 1 1 Encounter Details Date Type Department Care Team (Latest Contact Info) Description 03/06/2025 10:32 AM SOAKING TANK WORKER - 03/06/2025 11:59 PM SOAKING TANK WORKER Hospital Encounter Department of Gastroenterology in [place], [place] [address] [place] [phone] Marquise Gill M.D. [address] [place] [phone] Secondary Malignant Neoplasm Peritoneum (HCC) (Primary Dx); [...] things needed for daily living? No 03/07/2025 [facility] Utilities Answer Date Recorded In the past 12 months has [employer] electric, gas, oil, or water company threatened to shut off services in your home? No 03/07/2025 Housing Stability Answer Date Recorded What is your living situation today? I have a [facility] place to live 03/07/2025 Education Answer [...] Comments Blood Pressure 136/68 03/06/2025 1:30 PM SOAKING TANK WORKER Pulse 93 03/06/2025 1:45 PM SOAKING TANK WORKER Temperature 36.2 C (97.2 F) 03/06/2025 11:23 AM SOAKING TANK WORKER Respiratory Rate 17 03/06/2025 11:2 3 AM SOAKING TANK WORKER Oxygen Saturation 100% 03/06/2025 1:45 PM SOAKING TANK WORKER Inhaled Oxygen Concentration - - Weight 66.1 kg (145 lb 11.6 oz) 03/06/2025 2:01 PM SOAKING TANK WORKER post para Height - - Body Mass [...] st Contact Info) Description 03/12/2025 3:30 PM SOAKING TANK WORKER Appointment Department of Radiation Oncology in [place] [id number] [place] [phone] Faith Ellis M.D. [address] [place] [phone] 03/15/2025 8:30 AM SOAKING TANK WORKER Lab Department of Laboratory Medicine and Pathology, [facility], in [place], [place] [address] [place] [phone] Kadeem Marshall P.A.-C., M.S. [address] [place] [phone] 03/15/2025 9:40 AM SOAKING TANK WORKER Education Department of Oncology in [place], [place] [address] [place] [phone] Kadeem Marshall P.A.-C., M.S. [address] [place] [phone] 03/15/2025 10:30 AM SOAKING TANK WORKER Infusion Department of Oncology in [place], [place] [address] [place] [phone] Kadeem Marshall P.A.-C., M.S. [address] [place] [phone] 04/05/2025 8:30 AM SOAKING TANK WORKER Lab Department of Oncology in [place], [place] [address] [place] [phone] Kadeem Marshall P.A.-C., M.S. [address] [place] [phone] 04/05/2025 10:40 AM SOAKING TANK WORKER Office Visit Department of Oncology in [address] [phone] Kadeem Marshall P.A.-C., M.S. [address] [place] [phone] 04/05/2025 1:00 PM SOAKING TANK WORKER Infusion Department of Oncology in [address] [phone] Kadeem Marshall P.A.-C., M.S. [address] [place] [phone] 04/30/2025 9:20 AM SOAKING TANK WORKER Office Visit Department of Oncology in [address] [phone] Kadeem Marshall P.A.-C., M.S. 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 PARACENTESIS Routine 03/06/2025 12:14 PM SOAKING TANK WORKER 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 Narrative 03/06/2025 2:20 PM SOAKING TANK WORKER [facility] Patient Name: Hayley Unger Procedure Date: [...] 0 Note Initiated On: 03/06/2025 12:14 PM Marquise Gill M.D. GI PROCEDURE ORDERABLES Fi nal Result * (ABNORMAL) Cytology Non-COLLISION ESTIMATOR (03/06/2025 11:50 AM SOAKING TANK WORKER) (A) 03/07/2025 10:27 AM SOAKING TANK WORKER ECLR Report electronically signed by Rod Bailey M.D. I verify that I have examined all relevant slides/materi als for the specimen(s) and rendered or confirmed the diagnosis. (A) 03/07/2025 10:27 AM SOAKING TANK WORKER ECLR Gross Description Received 44 cc of blood tinged fluid without fixative.(A) 03/07/2025 10:27 AM SOAKING TANK WORKER ECLR Source A. Peritoneal, fluid(A) 03/07/2025 10:27 AM SOAKING TANK WORKER ECLR Interpretation A. Peritoneal, fluid (cytospin/manuel l block): Positive for malignancy. Metastatic adenocarcinom a. Digital imaging was used in the diagnostic assessment of this case, cell block A. (A) 03/07/2025 10:27 AM SOAKING TANK WORKER ECLR Fluid 03/06/2025 11:5 0 AM SOAKING TANK WORKER 03/06/2025 3:10 PM SOAKING TANK WORKER us Marquise Gill M.D. LAB SURG PATH ORDERABLES F inal Result Performing Organization Address [facility]/ZIP Co de Phone Number [facility] [address] [place] [phone], [facility] ECLR [address] [place] [phone] * Protein, Total, Body Fluid (03/06/2025 11:50 AM SOAKING TANK WORKER) Protein, Total, BF 4.1 See Comment g/dL 03/06/2025 4:08 PM SOAKING TANK WORKER ECLR Comment: ----ADDITIONAL INFORMATION---- A pleural fluid [...] clinical findings. All other fluids refer to www.[facility].com for further interpretive information. This test has been modified from the manager requirements's instructions. Its performance characteristics were determined by [facility] in a manner consistent with CLIA requirements. This test has not been cleared or approved by the U.S. Food and Drug Administration. Fluid Type, Protein, Total PERITONEAL 03/06/2025 4:07 PM SOAKING TANK WORKER ECLR Fluid (Peritoneal Fluid) 03/06/2025 11:50 AM SOAKING TANK WORKER 03/06/2025 3:11 PM SOAKING TANK WORKER us Marquise Gill M.D. LAB BODY FLUIDS AND STOOLS ORDERABLES Final Result Performing Organization Address City/[facility]/ZIP Co de Phone Number [facility] [address] [place] [phone], [facility] ECLR [facility] in [address] [address] * Albumin, Body Fluid (03/06/2025 11:50 AM SOAKING TANK WORKER) Albumin BF 2.9 See Comment g/dL 03/06/2025 4:09 PM SOAKING TANK WORKER ECLR Comment: ----ADDITIONAL INFORMATION---- Peritoneal fluid albumin is used to calculate the serum-ascites albumin gradient (SAAG). Values greater than or equal to 1.1 g/dL suggest portal hypertension. Pleural fluid albumin may be used to calculate a serum-effusion albumin gradient. Values greater than 1.2 g/dL are most consistent with a transudative process. All other fluids refer to www.[employer].com for further interpretive information. This test has been modified from the manager requirements's instructions. Its performance characteristics were determined by [facility] in a manner consistent with CLIA requirements. This test has not been cleared or approved by the U.S. Food and Drug Administration. Fluid Type, Albumin PERITONEAL 03/06/2025 4:07 PM SOAKING TANK WORKER ECLR Fluid (Peritoneal Fluid) 03/06/2025 11:50 AM SOAKING TANK WORKER 03/06/2025 3:11 PM SOAKING TANK WORKER us Marquise Gill M.D. LAB BODY FLUIDS AND STOOLS ORDERABLES Final Result [facility] [address] [place] [phone], [facility] ECLR [facility] in [address] [phone] * Cell Count and Differential, Body Fluid (03/06/2025 11:50 AM SOAKING TANK WORKER) Fluid Type Peritoneal /Paracente sis 03/06/2025 12:32 PM SOAKING TANK WORKER [facility] Gross Appearance Bloody 03/06/20 25 12:32 PM SOAKING TANK WORKER [facility] Total Nucleated Cells 945 /mcL 03/06/2025 12:32 PM SOAKING TANK WORKER [facility] Comment: ----REFERENCE VALUE---- Synovial: <150 Peritoneal: <500 Pleural: <500 Pericardial: <500 Neutrophils 41 % 03/06/2025 1:13 PM SOAKING TANK WORKER [facility] Comment: ----REFERENCE VALUE---- Synovial: <25% Peritoneal: <25% Pleural: <25% Pericardial: <25% Lymphocytes 17 Synovial: <75% % 03/06/2025 1:13 PM SOAKING TANK WORKER [facility] Monocytes/Macrop hages 42 Synovial: <70% % 03/06/2025 1:13 PM SOAKING TANK WORKER [facility] Reviewed by [email or web address] 03/06/2025 1:13 PM SOAKING TANK WORKER [facility] Fluid (Peritoneal Fluid) 03/06/2025 11:50 AM SOAKING TANK WORKER 03/06/2025 12:13 PM SOAKING TANK WORKER us Marquise Gill M.D. LAB BODY FLUIDS AND STOOLS ORDERABLES Final Result [facility] [address] [place] [address], [facility] [place] [address] [place] [phone] documented in this encounter Visit Diagnoses Diagnosis [...] mL/hr, Administer over 1 Hours, Once, On Tu03/06/25 at 1245, For 1 dose New Bag 03/06/2025 12:51 PM SOAKING TANK WORKER 1,000 mL 1000 mL/hr documented in this encounter Additional Health Concerns Infection Onset Date Last Indicated Resolved Time Protective Environment 06/02/2024 06/02/2024 documented as of this encounter Care Teams Insurance Sales Producer Relationship Specialty Start Date End Date Elsewhere, Pcp PCP - General Internal Medicine 03/08/24 documented as of this encounter
--- OUTSIDE RECORDS SUMMARY | 2025-03-07 12:45 | XMS_ITS | Encounter Summary ---
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 200 [place] [address] Phone: tel: fax: [facility] Referral ID Status Reason Start Date Expiration Date V isits Requested Visits Authorized [id number] Pending Review 03/12/2025 06/07/2026 5 5 SORTER AND DELIVERY * Outpatient (Routine) - Closed Specialty Diagnoses / Procedures Referred By Edgardo banks Referred To Contact Radiation Oncology Diagnoses Malignant Neoplasm Of Cecum (HCC) Abdominal Pain Kadeem Marshall P.A.-C., M.S. [address] [place] [address] Phone: tel: fax: [facility] [place] [facility] Referral ID Status Reason Start Date Expiration Date Visits Re quested Visits Authorized [id number] Closed 03/01/2025 08/31/2026 1 1 Scheduling Instructions De Ruyter please SORTER AND DELIVERY Reason for Visit * Outpatient (Routine) - Closed Specialty Diagnoses / Procedures Referred By Contac t Referred To Contact Radiation Oncology Diagnoses Malignant Neoplasm Of Cecum (HCC) Abdominal Pain Kadeem Marshall P.A.-C., M.S. [address] [place] [phone] Phone: tel: fax: [facility] Referral ID Status Reason Start Date Expiration Date Visits Re quested Visits Authorized [id number] Closed 03/01/2025 08/31/2026 1 1 Encounter Details Date Type Department Care Team (Latest Contact Info) Description 03/07/2025 12:45 PM MAIL SORTER AND DELIVERY - 03/07/2025 1:42 PM MAIL SORTER AND DELIVERY Hospital Encounter Department of Radiation Oncology in [place], [place] [address] [place] [phone] Faith Ellis M.D. [address] [place] [phone] Malignant Neoplasm Of Cecum (HCC) (Primary Dx); [...] things needed for daily living? No 03/07/2025 [facility] Utilities Answer Date Recorded In the past 12 months has th e electric, gas, oil, or water company threatened to shut off services in your home? No 03/07/2025 Housing Stability Answer Date Recorded What is your living situation today? I have a [facility] place to live 03/07/2025 Education Answer [...] Comments Blood Pressure 141/85 03/07/2025 12:53 PM MAIL SORTER AND DELIVERY Pulse 134 03/07/2025 12:53 PM MAIL SORTER AND DELIVERY Temperature 36.7 C (98 F) 03/07/2025 12:53 PM MAIL SORTER AND DELIVERY Respiratory Rate - - Oxygen Saturation - - Inhaled Oxygen Concentration - - Weight 65.6 kg (144 lb 10 oz) 03/07/2025 12:53 P M MAIL SORTER AND DELIVERY Height - - Body Mass Index 26.44 [...] Hayley Unger is a 64-year-old female from [place], [place] who is seen for discussion regarding [...] cancers. Patient is status post remote . [facility] pathology review Colon, cecum, mass, biopsy ([id number]; 07/03/2022): Invasive moderately- adenocarcinoma, pMMR. 07/30/2022 Surgery and Procedures ROBOTIC-ASSISTED COLECTOMY RIGHT WITH ANASTOMOSIS. Histologic Type: Adenocarcinoma Histologic Grade: G2 pT Category: pT3 pN Category: pN2a 07/30/2022 Genetic Testing and Tumor Genotyping 07/30/22 [facility] CRC Panel CINDY/PORSHA wt NAIF 10/21/2022 Clinical [...] fully negative panel); [employer]- Cancer panel through [email or web address]. 2024 Surgery and Procedures percutaneous microwave ablation [...] testing in 2022 with variant downgrade in 2024 (now fully negative panel); [facility]- Cancer panel through [facility]. 05/2024 - 02/[address] [...] been seeing a wound clinic at the [facility]. The areas currently dressed and she feels [...] any questions or concerns Agatha Mathew APRN, Joseluis, M.S.N. 03/06/2025 3:49 PM MAIL SORTER AND DELIVERY [1] Past Medical History: Diagnosis Date Adverse [...] TRANSVERSUS ABDOMINIS PLANE; Surgeon: Marquise Meeks M.B., Ch.Barrera., M.P.H.; Location: [facility] OR BLOCK - TRANSVERSUS ABDOMINIS PLANE [...] Ch.B., M.P.H.; Location: [facility] OR SALPINGECTOMY 2011 TOTAL HYSTERECTOMY 2010 [3] Family History Problem Relation Name Age of Onset Other (Psoriasis) Son eLo Fan 15 Asthma Son Lazaro Kwon 8 Thyroid disease Mother Anisa Unger Hypothyroidism Skin cancer Father Negrito Unger on face Colon cancer Neg Hx Hypertension Mother Anisa Unger Other (Lymphadema) Mother Anisa Unger 90 Prostate cancer Father Negrito Unger he beat it. Cosigned by Faith Ellis M.D. at 03/07/2025 3:32 PM MAIL SORTER AND DELIVERY SORTER AND DELIVERY SORTER AND DELIVERY Associated attestation - Faith Ellis M.D. - 03/07/2025 3:32 PM MAIL SORTER AND DELIVERY RADIATION ONCOLOGY CONSULT I saw and evaluated the patient and participated in the parekh portions of the service. I reviewed thedocumentation of Ms. Snider DALIA Mathew and agree with the findings and plan. [...] We discussed the acute as well as intermediate school teacher risks, including, but not limited to fatigue, skin erythema, bowel changes (we will try to minimize her bowel exposure), and small risks for non-healing of her wound. They understood and their questions were answered. She wished to proceed with treatment. We tentatively plan on delivering 2500 cGy in 5 fractions starting Wednesday, March 12, 2025. I had her meetDrAlpesh Rigby who she will see for her weekly [...] modified, Order list changed, Diagnosis association updated SORTER AND DELIVERY documented in this encounter Plan of Treatment Upcoming Encounters Date Type Department Care Team (Late st Contact Info) Description 03/12/2025 3:30 PM MAIL SORTER AND DELIVERY Appointment Department of Radiation Oncology in [place] [id number] [place] [phone] Faith Ellis M.D. [address] [place] [phone] 03/15/2025 8:30 AM MAIL SORTER AND DELIVERY Lab Department of Laboratory Medicine and Pathology, [facility], in [place], [place] [address] [place] [phone] Kadeem Marshall P.A.-C., M.S. [address] [place] [phone] 03/15/2025 9:40 AM MAIL SORTER AND DELIVERY Education Department of Oncology in [place], [place] [address] [place] [phone] Kadeem Marshall P.A.-C., M.S. [address] [place] [phone] 03/15/2025 10:30 AM MAIL SORTER AND DELIVERY Infusion Department of Oncology in [place], [place] [address] [place] [phone] Kadeem Marshall P.A.-C., M.S. [address] [place] [phone] 04/05/2025 8:30 AM MAIL SORTER AND DELIVERY Lab Department of Oncology in [address] [phone] Kadeem Marshall P.A.-C., M.S. [address] [place] [phone] 04/05/2025 10:40 AM MAIL SORTER AND DELIVERY Office Visit Department of Oncology in [address] [phone] Kadeem Marshall P.A.-C., M.S. [address] [place] [phone] 04/05/2025 1:00 PM MAIL SORTER AND DELIVERY Infusion Department of Oncology in [address] [phone] Kadeem Marshall P.A.-C., M.S. [address] [place] [phone] 04/30/2025 9:20 AM MAIL SORTER AND DELIVERY Office Visit Department of Oncology in [address] [phone] Kadeem Marshall P.A.-C., M.S. [address] [place] [address] Scheduled Orders Name Type Priority Associated Diagnoses [...] documented as of this encounter Care Teams Pan Washer Relationship Specialty Start Date End Date Elsewhere, Pcp PCP - General Internal Medicine 03/08/24 documented as of this encounter
--- OUTSIDE RECORDS SUMMARY | 2025-03-07 13:43 | XMS_ITS | Encounter Summary ---
Author Organization [facility] Address [address] [place] [address] Care Team Providers Care Family Mediator Name Role Phone Elsewhere, Pcp Primary Care Provider Unavailabl e Reason for Referral * Radiation Therapy (Routine) - Pending Review Specialty Diagnoses / Procedures Referred By Edgardo banks Referred To Contact Diagnoses Secondary Malignant Neoplasm Peritoneum (HCC) Procedures Initial Rad Onc Treatment Planning CT Simulation MT 3D RAD THER ISODOSE FIELD PLAN Faith Ly M.D. 200 [place] [address] Phone: tel: fax: [facility] Radiation Oncology at [place] [address] [place] [address] Referral ID Status Reason Start Date Expiration Date V isits Requested Visits Authorized [id number] Pending Review 03/07/2025 06/06/2026 1 1 CAL COORDINATOR PESTICIDE USE Reason for Visit * Radiation Therapy (Routine) - Pending Review Specialty Diagnoses / Procedures Referred By Edgardo banks Referred To Contact Diagnoses Secondary Malignant Neoplasm Peritoneum (HCC) Procedures Initial Rad Onc Treatment Planning CT Simulation MT 3D RAD THER ISODOSE FIELD PLAN Faith Ly M.D. 200 [place] [address] Phone: tel: fax: [facility] Radiation Oncology at [place] [address] [place] [address] Referral ID Status Reason Start Date Expiration Date V isits Requested Visits Authorized [id number] Pending Review 03/07/2025 06/06/2026 1 1 Encounter Details Date Type Department Care Team (Latest Contact Info) Description 03/07/2025 1:43 PM MEDICAL COORDINATOR PESTICIDE USE - 03/07/2025 3:41 PM MEDICAL COORDINATOR PESTICIDE USE Hospital Encounter Department of Radiation Oncology in [place], [place] [address] [place] [phone] Faith Ellis M.D. 200 [place] [address] Secondary Malignant Neoplasm Peritoneum (HCC) Social History [...] things needed for daily living? No 03/07/2025 [facility] Utilities Answer Date Recorded In the past 12 months has th e electric, gas, oil, or water company threatened to shut off services in your home? No 03/07/2025 Housing Stability Answer Date Recorded What is your living situation today? I have a [facility] place to live 03/07/2025 Education Answer [...] tablet 03/09/2025 documented as of this encounter Procedure Notes * Agatha Austin, RTT - 03/07/2025 2:00 PM CSTAssociated Order(s): Initial Rad Onc Treatment Planning CT Simulation Pre-Procedure Diagnose(s): Secondary Malignant Neoplasm Peritoneum (HCC) Post-Procedure Diagnose(s): Secondary Malignant Neoplasm Peritoneum (HCC) Initial Rad Onc Treatment Planning CT Simulation Performed by: Faith Ellis M.D. Authorized by: Faith Ellis M.D. Simulation was performed under physician supervision based on physician order in preparation for radiation therapy. Physician was immediately available to provide assistance and direction throughout the procedure. Written consent for treatment was completed or confirmed. The patient was appropriately identified and placed in the treatment position using the necessary immobilization to ensure a reproducible treatment position. Reference ashley were placed to facilitate marking of isocenter. Area scanned:Chest, Abdomen, and Pelvis Contrast used for the simulation procedure: None Patient position:head first supine and arms up Custom immobilization: Vac-stacy Motion management: 4D CT scan Bolus: No CT guidance: Following positioning of the patient, a series of slices was obtained to be utilized in treatment planning. CT images were transferred to the [employer] treatment planning system, after a reference isocenter was determined and marked. Segmentation and treatment planning will take place prior to treatment delivery. Patient set up and imaging was appropriate and completed without incident. Saloonkeeper use:No Cosigned by Faith Ellis M.D. at 03/07/2025 3:41 PM MEDICAL COORDINATOR PESTICIDE USE CAL COORDINATOR PESTICIDE USE CAL COORDINATOR PESTICIDE USE Associated attestation - Faith Ellis M.D. - 03/07/2025 3:41 PM MEDICAL COORDINATOR PESTICIDE USE I was present during all critical and parekh portions of the procedure(s) and/or immediately availableto furnish services the entire duration. See note for details. documented in this encounter Plan of Treatment Upcoming Encounters Date Type Department Care Team (Late st Contact Info) Description 03/12/2025 3:30 PM MEDICAL COORDINATOR PESTICIDE USE Appointment Department of Radiation Oncology in [place], [place] [address] [place] [phone] Faith Ellis M.D. [address] [place] [phone] 03/15/2025 8:30 AM MEDICAL COORDINATOR PESTICIDE USE Lab Department of Laboratory Medicine and Pathology, [facility], in [place], [place] [address] [place] [address] Kadeem Marshall P.A.-C., M.S. [address] [place] [phone] 03/15/2025 9:40 AM MEDICAL COORDINATOR PESTICIDE USE Education Department of Oncology in [place], [place] [address] [place] [phone] Kadeem Marshall P.A.-C., M.S. [address] [place] [phone] 03/15/2025 10:30 AM MEDICAL COORDINATOR PESTICIDE USE Infusion Department of Oncology in [address] [phone] Kadeem Marshall P.A.-C., M.S. [address] [place] [phone] 04/05/2025 8:30 AM MEDICAL COORDINATOR PESTICIDE USE Lab Department of Oncology in [address] [phone] Kadeem Marshall P.A.-C., M.S. [address] [place] [phone] 04/05/2025 10:40 AM MEDICAL COORDINATOR PESTICIDE USE Office Visit Department of Oncology in [address] [phone] Kadeem Marshall P.A.-C., M.S. [address] [place] [phone] 04/05/2025 1:00 PM MEDICAL COORDINATOR PESTICIDE USE Infusion Department of Oncology in [address] [phone] Kadeem Marshall P.A.-C., M.S. [address] [place] [phone] 04/30/2025 9:20 AM MEDICAL COORDINATOR PESTICIDE USE Office Visit Department of Oncology in [place], [place] [address] [place] [address] Kadeem Marshall P.A.-C., M.S. [address] [place] [phone] documented as of this encounter Procedures Procedure Name Priority Date/Time Associated Diagnosis Comments INITIAL RAD ONC TREATMENT PLANNING CT SIMULATION Routine 03/07/2025 2:00 PM MEDICAL COORDINATOR PESTICIDE USE Secondary Malignant Neoplasm Peritoneum (HCC) documented in this encounter Results * Initial Rad Onc Treatment Planning CT Simulation (03/07/2025 2:00 PM MEDICAL COORDINATOR PESTICIDE USE) Narrative BARAJAS QUANJessica - 03/07/2025 2:00 PM MEDICAL COORDINATOR PESTICIDE USE Faith Ellis M.D. 03/07/2025 3:41 PM Initial Rad Onc Treatment Planning CT Simulation Performed by: Faith Ellis M.D. Authorized by: Faith Ellis M.D. Simulation was performed under physician supervision based on physician order in preparation for radiation therapy. Physician was immediately available to provide assistance and direction throughout the procedure. Written consent for treatment was completed or confirmed. The patient was appropriately identified and placed in the treatment position using the necessary immobilization to ensure a reproducible treatment position. Reference ashley were placed to facilitate marking of isocenter. Area scanned:Chest, Abdomen, and Pelvis Contrast used for the simulation procedure: None Patient position:head first supine and arms up Custom immobilization: Vac-stacy Motion management: 4D CT scan Bolus: No CT guidance: Following positioning of the patient, a series of slices was obtained to be utilized in treatment planning. CT images were transferred to the [employer] treatment planning system, after a reference isocenter was determined and marked. Segmentation and treatment planning will take place prior to treatment delivery. Patient set up and imaging was appropriate and completed without incident. Saloonkeeper use:No Faith Ellis M.D. RADIATION ONCOLOGY ORDERA BLES Final Result KARL garza documented in this encounter Visit Diagnoses Diagnosis Secondary Malignant Neoplasm Peritoneum (HCC) documented in this encounter Additional Health Concerns Infection Onset Date Last Indicated Resolved Time Protective Environment 06/02/2024 06/02/2024 documented as of this encounter Care Teams Family Mediator Relationship Specialty Start Date End Date Elsewhere, Pcp PCP - General Internal Medicine 03/08/24 documented as of this encounter
--- OUTSIDE RECORDS SUMMARY | 2025-03-08 22:53 | XMS_ITS | Encounter Summary ---
Author Organization [facility] Address [address] [place] [address] Care Team Providers Care Structural Steel Worker Name Role Phone Elsewhere, Pcp Primary Care Provider Unavailabl e Reason for Visit * Reason Onset Date Comments Med Refill 02/28/2025 Babar Encounter Details Date Type Department Care Team (Latest Contact Info) Description 02/28/2025 Clinical Communication Department of Oncology in [place], [place] [address] [place] [address] Kadeem Marshall, Ciaran-Tammy., M.S. [address] [place] [address] Med Refill (rey) Social History Tobacco Use Types Packs/Day Years Used Date Smoking Tobacco: Never Passive Smoke Exposure: Never Smokeless Tobacco: Never Alcohol Use Standard Drinks/Week Comments Not Currently 0 (1 standard drink = 0.6 oz pur e alcohol) [facility] Utilities Answer Date Recorded In the past 12 months has e [employer], gas, oil, or water company threatened to [...] AM CDT documented as of this encounter Miscellaneous Notes * Telephone Encounter - Jessica Pat - 02/28/2025 10:46 AM CST DERECK [facility] NEED CEE Pending PA Approval DENT BUYER documented in this encounter Plan of Treatment Upcoming Encounters Date Type Department Care Team (Late st Contact Info) Description 03/12/2025 3:30 PM RESIDENT BUYER Appointment Department of Radiation Oncology in [place], [place] [address] [place] [phone] Faith Ellis M.D. [address] [place] [phone] 03/15/2025 8:30 AM RESIDENT BUYER Lab Department of Laboratory Medicine and Pathology, [facility], in [place], [place] [address] [place] [phone] Kadeem Marshall P.A.-C., M.S. [address] [place] [phone] 03/15/2025 9:40 AM RESIDENT BUYER Education Department of Oncology in [address] [phone] Kadeem Marshall P.A.-C., M.S. [address] [place] [phone] 03/15/2025 10:30 AM RESIDENT BUYER Infusion Department of Oncology in [address] [address] Kadeem Marshall P.A.-C., M.S. [address] [place] [phone] 04/05/2025 8:30 AM RESIDENT BUYER Lab Department of Oncology in [address] [address] Kadeem Marshall P.A.-C., M.S. [address] [place] [phone] 04/05/2025 10:40 AM RESIDENT BUYER Office Visit Department of Oncology in [address] [phone] Kadeem Marshall P.A.-C., M.S. [address] [place] [phone] 04/05/2025 1:00 PM RESIDENT BUYER Infusion Department of Oncology in [place], [place] [address] [place] [address] Kadeem Marshall P.A.-C., M.S. [address] [place] [phone] 04/30/2025 9:20 AM RESIDENT BUYER Office Visit Department of Oncology in [place], [place] [address] [place] [phone] Kadeem Marshall P.A.-C., M.S. [address] [place] [phone] documented as of this encounter Visit Diagnoses Not on filedocumented in this encounter Additional Health Concerns Infection Onset Date Last Indicated Resolved Time Protective Environment 06/02/2024 06/02/2024 documented as of this encounter Care Teams Structural Steel Worker Relationship Specialty Start Date End Date Elsewhere, Pcp PCP - General Internal Medicine 03/08/24 documented as of this encounter
--- OUTSIDE RECORDS SUMMARY | 2025-03-08 22:53 | XMS_ITS | Encounter Summary ---
Author Organization [facility] Address [address] [place] [address] Care Team Providers Care Homebound Teacher Name Role Phone Elsewhere, Pcp Primary Care Provider Unavailabl e Reason for Referral * Radiation Therapy (Routine) - Authorized Specialty Diagnoses / Procedures Referred By Edgardo t Referred To Contact Diagnoses Secondary Malignant Neoplasm Peritoneum (HCC) Procedures Management Visit Faith Ellis M.D. [address] [place] [address] Phone: tel: fax: [facility] Region Referral ID Status Reason Start Date Expiration Date V isits Requested Visits Authorized [id number] Authorized 03/06/2025 06/06/2026 10 10 TIONAL ARCHITECT * Radiation Therapy (Routine) - Pending Review Specialty Diagnoses / Procedures Referred By Edgardo banks Referred To Contact Diagnoses Secondary Malignant Neoplasm Peritoneum (HCC) Procedures Initial Rad Onc Treatment Planning CT Simulation AL 3D RAD THER ISODOSE FIELD PLAN SIM Faith Ellis M.D. [address] [place] [address] Phone: tel: fax: [facility] Radiation Oncology at [address] [phone] Referral ID Status Reason Start Date Expiration Date V isits Requested Visits Authorized [id number] Pending Review 03/07/2025 06/06/2026 1 1 TIONAL ARCHITECT * Radiation Therapy (Routine) - Canceled Specialty Diagnoses / Procedures Referred By Contac t Referred To Contact Diagnoses Secondary Malignant Neoplasm Peritoneum (HCC) Procedures Prior Auth Rad Tx AL RADTN TX DEL >=1 MEV COMPLEX AL GUIDANCE FOR LOC RAD TX AL 3D RAD THER ISODOSE FIELD PLAN 3D Faith Ellis M.D. [address] [place] [address] Phone: tel: fax: [facility] Referral ID Status Reason Start Date Expiration Date V isits Requested Visits Authorized [id number] Canceled 03/12/2025 06/06/2026 5 5 TIONAL ARCHITECT Encounter Details Date Type Department Care Team (Late st Contact Info) Description 03/06/2025 Orders Only Department of Radiation Oncology in [place], [place] [address] [place] [address] Raiza Echevarria APRN, C.N.P., D.N.P. [address] [place] [phone] Secondary Malignant Neoplasm Peritoneum (HCC) (Primary Dx) Social History Tobacco Use [...] things needed for daily living? No 03/07/2025 [facility] Utilities Answer Date Recorded In the past 12 months has [facility] electric, gas, oil, or water company threatened to shut off services in your home? No 03/07/2025 Housing Stability Answer Date Recorded What is your living situation today? I have a [facility] place to live 03/07/2025 Education Answer [...] st Contact Info) Description 03/12/2025 3:30 PM FUNCTIONAL ARCHITECT Appointment Department of Radiation Oncology in [place], [place] [address] [place] [address] Faith Ellis M.D. [address] [place] [address] 03/15/2025 8:30 AM FUNCTIONAL ARCHITECT Lab Department of Laboratory Medicine and Pathology, [facility], in [address] [address] Kadeem Marshall P.A.-C., M.S. [address] [place] [phone] 03/15/2025 9:40 AM FUNCTIONAL ARCHITECT Education Department of Oncology in [address] [address] Kadeem Marshall P.A.-C., M.S. [address] [place] [phone] 03/15/2025 10:30 AM FUNCTIONAL ARCHITECT Infusion Department of Oncology in [address] [address] Kadeem Marshall P.A.-C., M.S. [address] [place] [phone] 04/05/2025 8:30 AM FUNCTIONAL ARCHITECT Lab Department of Oncology in [address] [address] Kadeem Marshall P.A.-C., M.S. [address] [place] [phone] 04/05/2025 10:40 AM FUNCTIONAL ARCHITECT Office Visit Department of Oncology in [address] [address] Kadeem Marshall P.A.-C., M.S. [address] [place] [phone] 04/05/2025 1:00 PM FUNCTIONAL ARCHITECT Infusion Department of Oncology in [address] [address] Kadeem Marshall P.A.-C., M.S. [address] [place] [address] 04/30/2025 9:20 AM FUNCTIONAL ARCHITECT Office Visit Department of Oncology in [employer], [place] [address] [place] [address] Kadeem Marshall P.A.-C., M.S. [address] [place] [address] Scheduled Orders Name Type Priority Associated Diagnoses Order Schedule Prior Auth Rad Tx Radiation Oncology Routine Secondary Malignant Neoplasm Peritoneum (HCC) Ordered: 03/06/2025 Management Visit Radiation Oncology Routine Secondary Malignant Neoplasm Peritoneum (HCC) 10 Occurrences starting 03/06/2025 until 06/06/2026 documented as of this encounter Results * Initial Rad Onc Treatment Planning CT Simulation (03/07/2025 2:00 PM FUNCTIONAL ARCHITECT) [facility] 03/07/2025 2:00 PM FUNCTIONAL ARCHITECT Faith Ellis M.D. 03/07/2025 3:41 PM Initial [...] planning. CT images were transferred to the [employer] treatment planning system, after a reference isocenter was determined and marked. Segmentation and treatment planning will take place prior to treatment delivery. Patient set up and imaging was appropriate and completed without incident. Heavy Duty Custodian use:No us Faith Ellis M.D. RADIATION ONCOLOGY ORDERA BLES Final Result KARL garza documented in this encounter Visit Diagnoses Diagnosis Secondary Malignant Neoplasm Peritoneum (HCC)- Primary Secondary Malignant Neoplasm Peritoneum (HCC) documented in this encounter Additional Health Concerns Infection Onset Date Last Indicated Resolved Time Protective Environment 06/02/2024 06/02/2024 documented as of this encounter Care Teams Homebound Teacher Relationship Specialty Start Date End Date Elsewhere, Pcp PCP - General Internal Medicine 03/08/24 documented as of this encounter
--- OUTSIDE RECORDS SUMMARY | 2025-03-08 22:53 | XMS_ITS | Encounter Summary ---
Author Organization [facility] Address [address] [place] [phone] Care Team Providers Care Material Control Associate Name Role Phone Elsewhere, Pcp Primary Care Provider Unavailabl e Encounter Details Date Type Department Care Team (Late st Contact Info) Description 03/06/2025 Clinical Communication Department of Oncology in [place], [place] [address] [place] [address] Kadeem Marshall, P.Jessica.-C., M.S. [address] [place] [phone] Social History Tobacco Use Types Packs/Day Years [...] things needed for daily living? No 03/07/2025 [facility] Utilities Answer Date Recorded In the past 12 months has e electric, gas, oil, or water company threatened to shut off services in your home? No 03/07/2025 Housing Stability Answer Date Recorded What is your living situation today? I have a [facility] place to live 03/07/2025 Education Answer Date [...] st Contact Info) Description 03/12/2025 3:30 PM SENIOR PROGRAMMER Appointment Department of Radiation Oncology in [place], [place] [address] [place] [address] Faith Ellis M.D. [address] [place] [phone] 03/15/2025 8:30 AM SENIOR PROGRAMMER Lab Department of Laboratory Medicine and Pathology, [facility], in [place], [place] [address] [place] [phone] Kadeem Marshall P.A.-C., M.S. [address] [place] [phone] 03/15/2025 9:40 AM SENIOR PROGRAMMER Education Department of Oncology in [place], [place] [address] [place] [phone] Kadeem Marshall P.A.-C., M.S. [address] [place] [phone] 03/15/2025 10:30 AM SENIOR PROGRAMMER Infusion Department of Oncology in [address] [address] Kadeem Marshall P.A.-C., M.S. [address] [place] [phone] 04/05/2025 8:30 AM SENIOR PROGRAMMER Lab Department of Oncology in [address] [address] Kadeem Marshall P.A.-C., M.S. [address] [place] [phone] 04/05/2025 10:40 AM SENIOR PROGRAMMER Office Visit Department of Oncology in [address] [address] Kadeem Marshall P.A.-C., M.S. [address] [place] [phone] 04/05/2025 1:00 PM SENIOR PROGRAMMER Infusion Department of Oncology in [address] [address] Kadeem Marshall P.A.-C., M.S. [address] [place] [phone] 04/30/2025 9:20 AM SENIOR PROGRAMMER Office Visit Department of Oncology in [place], [place] [address] [place] [phone] Kadeem Marshall P.A.-C., M.S. [address] [place] [address] documented as of this encounter Visit Diagnoses Not on filedocumented in this encounter Additional Health Concerns Infection Onset Date Last Indicated Resolved Time Protective Environment 06/02/2024 06/02/2024 documented as of this encounter Care Teams Material Control Associate Relationship Specialty Start Date End Date Elsewhere, Pcp PCP - General Internal Medicine 03/08/24 documented as of this encounter
--- OUTSIDE RECORDS SUMMARY | 2025-03-08 22:53 | XMS_ITS ---
Author Organization [facility] Address [address] [place] [address] Care Team Providers Care Bottle Carrier Name Role Phone Elsewhere, Pcp Primary Care [...] symptoms. Patient was instructed to discontinue all mhdx-wcz-dnsivbx vitamins and supplements, aspirin and NSAID containing products until after surgery is complete. If she needs anything for pain she was instructed to use Tylenol. 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 on 02/11/2024 Overview (07/20/2022): Added automatically from request for surgery [id number] Assessment & Plan (07/21/2022 11:15 AM CDT): [...] on path Current Treatment and Therapy Plans Tucatinib / Trastuzumab* Plan Start Date:02/22/2025 Plan Provider:Kadeem Marshall P.A.-C., M.S. Linked Problems Malignant Neoplasm Of Cecum (HCC) Treatment Medications Current Day (Day 1 , Cycle 1 - Planned for 03/15/2025) Next Day (Day 1, Cycle 2 - Planned for 04/05/2025) trastuzumab-dkst (Ogivri)trastuzumab-dkst (Ogivri) IVPB (420 mg vial)tucatinib (Tukysa) trastuzumab-dkst 399 mg in NaCl 0.9% 269 mL IVPB (Ogivri)tucatinib (Tukysa) 50 mg tablet trastuzumab-dkst 399 mg in NaCl 0.9% 269 mL IVPB (Ogivri)tucatinib (Tukysa) 50 mg tablet Vascular Access Patency - Implanted Vascular Access [...] Treatment Medications Discontinue Reason Plan Provider Cycles FOLFIRI + Bevacizumab ( Fluorouracil / Leucovorin / Irinotecan / Bevacizumab ) 10/16/19 24 02/23/2025 bevacizumab-awwb (Mvasi)bevacizumab-aww b (Mvasi) IVPB Non-QS solutionbevacizumab-bv zr (Zirabev) IVPB Non-QS solutionfluorouraciL (AdruciL)fluorouraciL (AdruciL) IVPB in 92 mL (c-series) (AdruciL)irinotecan (Camptosar)irinotecan (Camptosar) IVPB in NaCl 0.9% 500 mL (Camptosar)leucovorin 100 mg IVPB in NaCl 0.9% 100 mL (20 mg/mL) Therapy Complete Preet Segura M.D. 28 of 30 cycles started FOLFOX6 ( Fluorouracil / Leucovorin / Oxaliplatin ) ( GI ) 11/10/19 23 10/15/2023 fluorouraciL (AdruciL)fluorouraciL (AdruciL) IVPB in 230 mL (c-series) (AdruciL)leucovorin 100 mg IVPB in D5W 100 mL (20 mg/mL)oxaliplatin (Eloxatin)oxaliplatin (Eloxatin) IVPB in 250 mL (Eloxatin) Therapy [...]
--- OUTSIDE RECORDS SUMMARY | 2025-03-08 22:53 | XMS_ITS | Encounter Summary ---
Author Organization [facility] Address [address] [place] [address] Care Team Providers Care Measurement Psychologist Name Role Phone Elsewhere, Pcp Primary Care Provider Unavailabl e Encounter Details Date Type Department Care Team (Latest Contact Info) Description 03/07/2025 Results Follow-Up Department of Gastroenterology in [place], [place] [address] [place] [phone] Marquise Gill M.D. [address] [place] [phone] Cell Count and Differential, Body Fluid, Albumin, Body Fluid, Protein, Total, Body Fluid, Cytology Non-CURBING STONECUTTER Social History Tobacco Use Types Packs/Day Years [...] things needed for daily living? No 03/07/2025 [facility] Utilities Answer Date Recorded In the past 12 months has [facility] electric, gas, oil, or water company threatened [...] st Contact Info) Description 03/12/2025 3:30 PM RECRUITING INTERN Appointment Department of Radiation Oncology in [place], [place] [address] [place] [phone] Faith Ellis M.D. [address] [place] [address] 03/15/2025 8:30 AM RECRUITING INTERN Lab Department of Laboratory Medicine and Pathology, [facility], in [place], [place] [address] [place] [phone] Kadeem Marshall P.A.-C., M.S. [address] [place] [phone] 03/15/2025 9:40 AM RECRUITING INTERN Education Department of Oncology in [place], [place] [address] [place] [phone] Kadeem Marshall P.A.-C., M.S. [address] [place] [phone] 03/15/2025 10:30 AM RECRUITING INTERN Infusion Department of Oncology in [place] [address] [place] [address] Kadeem Marshall P.A.-C., M.S. [address] [place] [phone] 04/05/2025 8:30 AM RECRUITING INTERN Lab Department of Oncology in [address] [phone] Kadeem Marshall P.A.-C., M.S. [address] [place] [phone] 04/05/2025 10:40 AM RECRUITING INTERN Office Visit Department of Oncology in [address] [phone] Kadeem Marshall P.A.-C., M.S. [address] [place] [phone] 04/05/2025 1:00 PM RECRUITING INTERN Infusion Department of Oncology in [address] [phone] Kadeem Marshall P.A.-C., M.S. [address] [place] [address] 04/30/2025 9:20 AM RECRUITING INTERN Office Visit Department of Oncology in [place], [place] [address] [place] [address] Kadeem Marshall P.A.-C., M.S. [address] [place] [phone] documented as of this encounter Visit Diagnoses Not on filedocumented in this encounter Additional Health Concerns Infection Onset Date Last Indicated Resolved Time Protective Environment 06/02/2024 06/02/2024 documented as of this encounter Care Teams Measurement Psychologist Relationship Specialty Start Date End Date Elsewhere, Pcp PCP - General Internal Medicine 03/08/24 documented as of this encounter
--- OUTSIDE RECORDS SUMMARY | 2025-03-08 22:53 | XMS_ITS | Encounter Summary ---
Author Organization [facility] Address [address] [place] [address] Care Team Providers Care Child Psychometrist Name Role Phone Elsewhere, Pcp Primary Care Provider Unavailabl e Reason for Visit * Reason Onset Date Comments Abdominal Pain 03/05/2025 Encounter Details Date Type Department Care Team (Latest Contact Info) Description 03/05/2025 Clinical Communication Department of Oncology in [place], [place] [address] [place] [address] Kadeem Marshall P.A.-C., M.S. [address] [place] [address] Abdominal Pain Social History Tobacco Use Types Packs/Day Years [...] things needed for daily living? No 03/07/2025 [facility] Utilities Answer Date Recorded In the past 12 months has [employer] electric, gas, oil, or water company threatened to shut off services in your home? No 03/07/2025 Housing Stability Answer Date Recorded What is your living situation today? I have a [facility] place to live 03/07/2025 Education Answer [...] encounter Miscellaneous Notes * Telephone Encounter - Lynn Meadows M.SSaji., R.N. - 03/05/2025 1:28 PM CAR DISTRIBUTOR SUBJECTIVE CHIEF COMPLAINT / REASON FOR CALL Abdominal Pain ASSESSMENT Hayley calls in today to report worsening abdominal pain and fullness. Hayley states that her pain negro 10/10 even after taking Celebrex today. She has worsening bloating with the pain and this is making her not want to eat. She also states that her kidneys hurt. She does sound uncomfortable on the phone. She denies nausea, vomiting, bloody stools, and other new symptoms. Hayley denies any other acute concerns. PLAN RN advised patient to nearest Emergency Department for 10/10 pain despite medication and worsening symptoms. RN advised Hayley not to drive her self. She will call her sister to drive her. She will [facility]. All questions and concerns heard and addressed. Disposition/Recommendation: recommended to report to the nearest emergency department. Information/Education: patient/caller able to teach back. Caller agreeable to plan of care: yes. The following references were used: nursing clinical judgement and previous plan of care date: 03/01. DISTRIBUTOR documented in this encounter Plan of Treatment Upcoming Encounters Date Type Department Care Team (Late st Contact Info) Description 03/12/2025 3:30 PM CAR DISTRIBUTOR Appointment Department of Radiation Oncology in [place] [id number] [place] [phone] Faith Ellis M.D. [address] [place] [phone] 03/15/2025 8:30 AM CAR DISTRIBUTOR Lab Department of Laboratory Medicine and Pathology, [facility], in [place], [place] [address] [place] [phone] Kadeem Marshall P.A.-C., M.S. [address] [place] [phone] 03/15/2025 9:40 AM CAR DISTRIBUTOR Education Department of Oncology in [place], [place] [address] [place] [phone] Kadeem Marshall P.A.-C., M.S. [address] [place] [phone] 03/15/2025 10:30 AM CAR DISTRIBUTOR Infusion Department of Oncology in [place], [place] [address] [place] [phone] Kadeem Marshall P.A.-C., M.S. [address] [place] [phone] 04/05/2025 8:30 AM CAR DISTRIBUTOR Lab Department of Oncology in [address] [phone] Kadeem Marshall P.A.-C., M.S. [address] [place] [phone] 04/05/2025 10:40 AM CAR DISTRIBUTOR Office Visit Department of Oncology in [address] [phone] Kadeem Marshall P.A.-C., M.S. [address] [place] [phone] 04/05/2025 1:00 PM CAR DISTRIBUTOR Infusion Department of Oncology in [address] [phone] Kadeem Marshall P.A.-C., M.S. [address] [place] [phone] 04/30/2025 9:20 AM CAR DISTRIBUTOR Office Visit Department of Oncology in [address] [phone] Kadeem Marshall P.A.-C., M.S. [address] [place] [phone] documented as of this encounter Visit Diagnoses Not on filedocumented in this encounter Additional Health Concerns Infection Onset Date Last Indicated Resolved Time Protective Environment 06/02/2024 06/02/2024 documented as of this encounter Care Teams Child Psychometrist Relationship Specialty Start Date End Date Elsewhere, Pcp PCP - General Internal Medicine 03/08/24 documented as of this encounter
--- OUTSIDE RECORDS SUMMARY | 2025-03-08 22:53 | XMS_ITS | Encounter Summary ---
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 [address] [place] [address] Phone: tel: fax: [facility] Region Referral ID Status Reason Start Date Expiration Date Visits Re quested Visits Authorized [id number] Closed 03/05/2025 06/05/2026 1 1 RITY SYSTEM ADMINISTRATOR Encounter Details Date Type Department Care Team (Latest Contact Info) Description 03/05/2025 Clinical Communication Department of Gastroenterology in [place], [place] [address] [place] [address] Marquise Gill M.D. [address] [place] [address] Social History Tobacco Use Types Packs/Day Years Used Date Smoking Tobacco: Never Passive Smoke Exposure: Never Smokeless Tobacco: Never Alcohol Use Standard Drinks/Week Comments Not Currently 0 (1 standard drink = 0.6 oz pur e alcohol) [facility] Utilities Answer Date Recorded In [...] encounter Miscellaneous Notes * Telephone Encounter - Marquise Gill M.D. 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 She has worsening distension, confirmed to be ascites on CT scan. ER requesting paracentesis. Will have her on our schedule tomorrow for therapeutic paracentesis. RITY SYSTEM ADMINISTRATOR documented in this encounter Plan of Treatment Upcoming Encounters Date Type Department Care Team (Late st Contact Info) Description 03/12/2025 3:30 PM SECURITY SYSTEM ADMINISTRATOR Appointment Department of Radiation Oncology in [place] [address] [place] [address] Faith Ellis M.D. [address] [place] [phone] 03/15/2025 8:30 AM SECURITY SYSTEM ADMINISTRATOR Lab Department of Laboratory Medicine and Pathology, [facility], in [place], [place] [address] [place] [phone] Kadeem Marshall P.A.-C., M.S. [address] [place] [phone] 03/15/2025 9:40 AM SECURITY SYSTEM ADMINISTRATOR Education Department of Oncology in [address] [address] Kadeem Marshall P.A.-C., M.S. [address] [place] [phone] 03/15/2025 10:30 AM SECURITY SYSTEM ADMINISTRATOR Infusion Department of Oncology in [address] [phone] Kadeem Marshall P.A.-C., M.S. [address] [place] [phone] 04/05/2025 8:30 AM SECURITY SYSTEM ADMINISTRATOR Lab Department of Oncology in [place], [place] [address] [place] [phone] Kadeem Marshall P.A.-C., M.S. [address] [place] [phone] 04/05/2025 10:40 AM SECURITY SYSTEM ADMINISTRATOR Office Visit Department of Oncology in [place], [place] [address] [place] [phone] Kadeem Marshall P.A.-C., M.S. [address] [place] [phone] 04/05/2025 1:00 PM SECURITY SYSTEM ADMINISTRATOR Infusion Department of Oncology in [place], [place] [address] [place] [phone] Kadeem Marshall P.A.-C., M.S. [address] [place] [phone] 04/30/2025 9:20 AM SECURITY SYSTEM ADMINISTRATOR Office Visit Department of Oncology in [address] [address] Kadeem Marshall P.A.-C., M.S. [address] [place] [phone] documented as of this encounter Visit Diagnoses Diagnosis Secondary Malignant Neoplasm Peritoneum (HCC)- Primary Malignant Neoplasm Of Cecum (HCC) Ascites Chronic documented in this encounter Additional Health Concerns Infection Onset Date Last Indicated Resolved Time Protective Environment 06/02/2024 06/02/2024 documented as of this encounter Care Teams Health Spa Manager Relationship Specialty Start Date End Date Elsewhere, Pcp PCP - General Internal Medicine 03/08/24 documented as of this encounter
--- OUTSIDE RECORDS SUMMARY | 2025-03-08 22:54 | XMS_ITS | Encounter Summary ---
Author Organization [facility] Address [address] [place] [address] Care Team Providers Care Senior Tax Analyst Name Role Phone Elsewhere, Pcp Primary Care Provider Unavailabl e Encounter Details Date Type Department Care Team (Late st Contact Info) Description 01/27/2025 Clinical Communication Department of Infusion Therapy in [place], [place] [address] [place] [address] Kevin Tuttle, ND-, R.N. Social History Tobacco Use Types Packs/Day Years Used Date Smoking Tobacco: Never Passive Smoke Exposure: Never Smokeless Tobacco: Never Alcohol Use Standard Drinks/Week Comments Not Currently 0 (1 standard drink = 0.6 oz pur e alcohol) [facility] Utilities Answer Date Recorded In the past 12 months has [employer], gas, oil, or water [employer] threatened to shut off services in your [...] your living situation today? I have a [facility] place to live 2024 Education [...] st Contact Info) Description 03/12/2025 3:30 PM REAL ESTATE ASSOCIATE ATTORNEY Appointment Department of Radiation Oncology in [place], [place] [address] [place] [phone] Faith Ellis M.D. [address] [place] [phone] 03/15/2025 8:30 AM REAL ESTATE ASSOCIATE ATTORNEY Lab Department of Laboratory Medicine and Pathology, [facility], in [place], [place] [address] [place] [phone] Kadeem Marshall P.A.-C., M.S. [address] [place] [phone] 03/15/2025 9:40 AM REAL ESTATE ASSOCIATE ATTORNEY Education Department of Oncology in [place], [place] [address] [place] [phone] Kadeem Marshall P.A.-C., M.S. [address] [place] [phone] 03/15/2025 10:30 AM REAL ESTATE ASSOCIATE ATTORNEY Infusion Department of Oncology in [place], [place] [address] [place] [phone] Kadeem Marshall P.A.-C., M.S. [address] [place] [phone] 04/05/2025 8:30 AM REAL ESTATE ASSOCIATE ATTORNEY Lab Department of Oncology in [address] [address] Kadeem Marshall P.A.-C., M.S. [address] [place] [phone] 04/05/2025 10:40 AM REAL ESTATE ASSOCIATE ATTORNEY Office Visit Department of Oncology in [address] [phone] Kadeem Marshall P.A.-C., M.S. [address] [place] [phone] 04/05/2025 1:00 PM REAL ESTATE ASSOCIATE ATTORNEY Infusion Department of Oncology in [address] [phone] Kadeem Marshall P.A.-C., M.S. [address] [place] [phone] 04/30/2025 9:20 AM REAL ESTATE ASSOCIATE ATTORNEY Office Visit Department of Oncology in [place], [place] [address] [place] [address] Kadeem Marshall P.A.-C., M.S. [address] [place] [address] documented as of this encounter Visit Diagnoses Not on filedocumented in this encounter Additional Health Concerns Infection Onset Date Last Indicated Resolved Time Protective Environment 06/02/2024 06/02/2024 documented as of this encounter Care Teams Senior Tax Analyst Relationship Specialty Start Date End Date Elsewhere, Pcp PCP - General Internal Medicine 03/08/24 documented as of this encounter
--- OUTSIDE RECORDS SUMMARY | 2025-03-08 22:54 | XMS_ITS | Clinical Summary ---
Author Organization [facility] Address [address] [place] [address] Care Team Providers Care Plsql Developer Name Role Phone Elsewhere, Pcp Primary Care Provider Unavailabl e Source Comments Patient records contain information from all sites at [facility]. For routine questions regarding patient records, call [phone] during business hours, M-F 8:00 AM - 5:00 PM Central Time. Record requests for emergency care only can be directed to [phone] at any time.[facility] Allergies Active Allergy Reactions Criticality Noted Date [...] Bloating,HASN'T NEEDED FOR SEVERAL MONTHS, Reported on 03/07/2025 acetaminophen (TYLENOL) 500 mg tablet Take 2 tablets (1,000 mg total) by mouth every 6 (six) hours as needed for pain. 4 Active cholecalciferol (VITAMIN D3) 50 mcg (2,000 Unit) capsule Take 50 mcg by mouth daily. Active oxyCODONE (ROXICODONE) 5 mg immediate release tabletIndicatio ns:Acute Pain Take 1 tablet (5 mg total) by mouth every 4 (four) hours as needed for severe pain or score 7-10 of 10 (for breakthrough pain) Indication: Acute Pain. 10 tablet 09/16/2023 1:52 PM CDT 4 Active Additional Information Patient not taking.Reported on 03/07/2025 loperamide (Imodium A-D) 2 mg capsule Take 1 capsule (2 mg total) by mouth 4 (four) times a day as needed for diarrhea. 60 capsule 11 11/05/2023 1:07 PM CDT 4 Active Additional Information Patient taking differently:2 mg oral 4 times daily PRN, diarrhea,HASN'T NEEDED FOR A FEW MONTHS, Reported on 03/07/2025 penciclovir (Denavir) 1 % cream Apply 1 Application topically every 2 (two) hours as needed (Cold Sores). 1.5 g 4 Active Additional Information Patient taking differently:1 Application topical Every 2 hour PRN, Cold Sores,HASN'T NEEDED FOR SEVERAL MONTHS, Reported on 03/07/2025 ascorbic acid, vitamin C, (ascorbic acid) 500 mg tablet Take 500 mg by mouth daily. Active losartan (Cozaar) 25 mg tablet Take 1 tablet (25 mg total) by mouth daily. 30 tablet 2 5 Active Additional Information Patient not taking.Reported on 03/07/2025 loperamide (Imodium A-D) 2 mg capsule Take 1 capsule (2 mg total) by mouth 4 (four) times a day as needed for diarrhea. 90 capsule 2 5 Active OLANZapine (ZyPREXA) 5 mg tablet Take 1 tablet (5 mg total) by mouth at bedtime. 30 tablet 5 Active Additional Information Patient not taking.Informant: Self, Reported on 03/07/2025 ondansetron (Zofran) 8 mg tabletIndicatio ns:Malignant Neoplasm Of Cecum (HCC) Take 1 tablet (8 mg total) by mouth every 8 (eight) hours as needed for nausea or vomiting. 30 tablet 3 11/17/2024 12:36 PM CDT 5 026 Active Additional Information Patient not taking.Reason: Side effects, Informant: Self, Reported on 03/07/2025 prochlorperazin e (Compazine) 10 mg tabletIndicatio ns:Malignant Neoplasm Of Cecum (HCC) Take 1 tablet (10 mg total) by mouth every 6 (six) hours as needed for nausea or vomiting (unrelieved by ondansetron). 30 tablet 3 11/17/2024 12:36 PM CDT 5 026 Active LORazepam (Ativan) 0.5 mg tablet Take 1 tablet (0.5 mg total) by mouth 2 (two) times a day as needed (nausea). Post chemotherapy 20 tablet 5 Active cholecalciferol , vitD3,/vit K2 (VITAMIN D3-VITAMIN K2 ORAL) Take [...] at bedtime for 10 days. 40 capsule 5 Active UNABLE TO FIND Take by mouth. Vitamin D with K2, 2 capsules daily with breakfast (5,000 iu each) Active UNABLE TO FIND Take by mouth. Methylmaster, Methyl B12, two at breakfast Active UNABLE TO FIND Take by mouth daily with morning meal. Biocidin Liquid, 10 drops at breakfast Active MEBENDAZOLE ORAL Take 210 mg by mouth 2 (two) times a day. In morning and evening, 4 days on 3 days off Active IVERMECTIN ORAL Take 24 mg by mouth 2 (two) times a day. 24 mg in the morning and evening, 4 days on 3 days off Active tucatinib (Tukysa) 50 mg tabletIndicatio ns:Malignant Neoplasm Of Cecum (HCC) Take 5 tablets (250 mg total) by mouth 2 (two) times a day. Take approximately 12hrs apart and at same time each day with or without a meal. Swallow tabs whole and do not chew, crush, or split prior to swallowing. 300 tablet 5 025 Active celecoxib (CeleBREX) 50 mg capsule Take 50 mg by mouth 2 (two) times a day. Unsure of dose Active ciprofloxacin (Cipro) 500 mg tabletIndicatio ns:Secondary Malignant Neoplasm Peritoneum (HCC),Peritonit is Unspecified (HCC) Take 1 tablet (500 mg total) by mouth 2 (two) times a day for 5 days. 10 tablet 5 025 Active Hospital, Clinic, or Other Facility Administered Medication [...] symptoms. Patient was instructed to discontinue all [id number] vitamins and supplements, aspirin and NSAID containing products until after surgery is complete. If she needs anything for pain she was instructed to use Tylenol. 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 on 02/11/2024 Overview (07/20/2022): Added automatically from request for surgery [id number] Assessment & Plan (07/21/2022 11:15 AM CDT): [...] Of Other Specified Body Structures 10/01/2017 07/22/19 Overview (07/21/2022): Angiogram from 09/28/2017 showed 30% stenosis proximal left anterior descending and otherwise normal angiogram. Encounters Date Type Department Care Team Description 03/07/2025 1:43 PM SHIPPING SUPPORT CLERK - 03/07/2025 3:41 PM [facility] Hospital Encounter Department of Radiation Oncology in [address] [phone] Faith Ellis M.D. Secondary Malignant Neoplasm Peritoneum (HCC) 03/07/2025 12:45 PM SHIPPING SUPPORT CLERK - 03/07/2025 1:42 PM [facility] Hospital Encounter Department of Radiation Oncology in [address] [address] Faith Ellis M.D. Malignant Neoplasm Of Cecum (HCC) (Primary Dx); Secondary Malignant Neoplasm Peritoneum (HCC); Secondary Malignant Neoplasm Soft Tissue (HCC) 03/07/2025 Results Follow-Up Department of Gastroenterology in [address] [phone] Bridget, Marquise D, M.D. Cell Count and Differential, Body Fluid, Albumin, Body Fluid, Protein, Total, Body Fluid, Cytology Non-LIVE IN HOUSEKEEPER 03/06/2025 10:32 AM SHIPPING SUPPORT CLERK - 03/06/2025 11:59 PM SHIPPING SUPPORT CLERK Hospital Encounter Department of Gastroenterology in [address] [phone] Marquise Gill M.D. Secondary Malignant Neoplasm Peritoneum (HCC) (Primary Dx); Malignant Neoplasm Of Cecum (HCC); Ascites Chronic; Peritonitis Unspecified (HCC) Discharge Disposition: Home or Self Care 03/06/2025 Orders Only Department of Radiation Oncology in [place], [place] [address] [place] [phone] Raiza Echevarria APRN, C.N.P., D.N.P. Secondary Malignant Neoplasm Peritoneum (HCC) (Primary Dx) 03/06/2025 Clinical Communication Department of Oncology in [address] [address] Kadeem Marshall P.A.-C., M.S. 03/05/2025 12:43 PM SHIPPING SUPPORT CLERK - 03/05/2025 3:05 PM SHIPPING SUPPORT CLERK Emergency [facility] [address] [place] [phone] Tyesha Rose APRN, C.N.P. Abdominal Pain (Primary Dx); Ascites Malignant (HCC) Discharge Disposition: Home or Self Care 03/05/2025 Clinical Communication Department of Gastroenterology in [address] [phone] Marquise Gill M.D. 03/05/2025 Clinical Communication Department of Oncology in [address] [phone] Kaedem Marshall P.A.-C., M.S. Abdominal Pain 02/28/2025 Clinical Communication Department of Oncology in [address] [phone] Kadeem Marshall P.A.-C., M.S. [facility] 02/23/2025 10:00 AM CDT Infusion Department of Oncology in [address] [phone] Kadeem Marshall P.A.-C., M.S. Malignant Neoplasm Of Cecum (HCC); Secondary Malignant Neoplasm Peritoneum (HCC) 02/23/2025 9:20 AM CDT Office Visit Department of Oncology in [address] [address] Kadeem Marshall P.A.-C., M.S. Malignant Neoplasm Of Cecum (HCC) (Primary Dx); Secondary Malignant Neoplasm Peritoneum (HCC); Examination Prior To Chemotherapy 02/23/2025 6:45 AM CDT Lab Department of Oncology in [address] [address] Kadeem Marshall P.A.-C., M.S. Malignant Neoplasm Of Cecum (HCC) (Primary Dx); Secondary Malignant Neoplasm Peritoneum (HCC); Secondary Malignant Neoplasm Liver (HCC) 02/22/2025 11:01 AM CDT - 02/22/2025 11:59 PM CDT Hospital Encounter Department of Radiology in [address] [phone] Kadeem Marshall P.A.-C., M.S. Secondary Malignant Neoplasm Liver (HCC) Discharge Disposition: Home or Self Care 02/01/2025 Orders Only Department of Infusion Therapy in [address] [phone] Katherine King R.N. Malignant Neoplasm Of Cecum (HCC) (Primary Dx) 02/01/2025 Orders Only Department of Oncology in [address] [address] Kadeem Marshall P.A.-C., M.S. 01/27/2025 4:38 PM CDT - 01/27/2025 6:30 PM CDT Emergency [facility] [address] [place] [phone] Christopher Arteaga APRN, C.N.P., D.N.P. Postherpetic Trigeminal Neuralgia (Primary Dx) Discharge Disposition: Home or Self Care 01/27/2025 2:45 PM CDT Infusion Department of Infusion Therapy in [address] [address] Kadeem Marshall P.A.-C., M.S. Malignant Neoplasm Of Cecum (HCC) (Primary Dx); Secondary Malignant Neoplasm Peritoneum (HCC) Discharge Disposition: Home or Self Care 01/27/2025 Clinical Communication Department of Infusion Therapy in [address] [phone] Kevin Tuttle, [facility], R.N. 01/25/2025 1:00 PM CDT Infusion Department of Oncology in [address] [phone] Kadeem Marshall P.A.-Tammy., M.S. Malignant Neoplasm Of Cecum (HCC) (Primary Dx); Secondary Malignant Neoplasm Peritoneum (HCC) 01/25/2025 11:00 AM CDT Office Visit Department of Oncology in [address] [address] Shahana Castillo M.D. Malignant Neoplasm Of Cecum (HCC) (Primary Dx); Secondary Malignant Neoplasm Peritoneum (HCC); Secondary Malignant Neoplasm Liver (HCC) 01/25/2025 8:00 AM CDT Lab Department of Oncology in [address] [address] Kadeem Marshall P.A.-Tammy., M.S. Malignant Neoplasm Of Cecum (HCC) (Primary Dx); Secondary Malignant Neoplasm Peritoneum (HCC) 01/13/2025 3:00 PM CDT Infusion Department of Infusion Therapy in [address] [phone] Preet Segura M.D. Secondary Malignant Neoplasm Peritoneum (HCC) (Primary Dx); Malignant Neoplasm Of Cecum (HCC) 01/11/2025 1:15 PM CDT Infusion Department of Oncology in [place], [place] [address] [place] [phone] Preet Segura M.D. Secondary Malignant Neoplasm Peritoneum (HCC) (Primary Dx); Malignant Neoplasm Of Cecum (HCC) 01/11/2025 11:00 AM CDT Lab Department of Oncology in [place], [place] [address] [place] [phone] Preet Segura M.D. Malignant Neoplasm Of Cecum (HCC) (Primary Dx); Secondary Malignant Neoplasm Peritoneum (HCC) 12/31/2024 1:15 PM CDT Infusion Department of Infusion Therapy in [place], [place] [address] [place] [phone] Preet Segura M.D. Secondary Malignant Neoplasm Peritoneum (HCC) (Primary Dx); Malignant Neoplasm Of Cecum (HCC) 12/29/2024 11:30 AM CDT Infusion Department of Oncology in [place], [place] [address] [place] [phone] Preet Segura M.D. Secondary Malignant Neoplasm Peritoneum (HCC) (Primary Dx); Malignant Neoplasm Of Cecum (HCC) 12/29/2024 10:30 AM CDT Office Visit Department of Oncology in [place], [place] [address] [place] [phone] Ralph Corado M.B.B.S., M.D. Malignant Neoplasm Of Cecum (HCC) (Primary Dx); Secondary Malignant Neoplasm Peritoneum (HCC) 12/29/2024 7:30 AM CDT Lab Department of Laboratory Medicine and Pathology, [facility] in [place], [place] [address] [place] [phone] Preet Segura M.D. Malignant Neoplasm Of Cecum (HCC) (Primary Dx); Secondary Malignant Neoplasm Peritoneum (HCC) 12/17/2024 2:45 PM CDT Infusion Department of Infusion Therapy in [place], [place] [address] [place] [phone] Preet Segura M.D. Secondary Malignant Neoplasm Peritoneum (HCC) (Primary Dx); Malignant Neoplasm Of Cecum (HCC) 12/15/2024 2:30 PM CDT Infusion Department of Oncology in [place], [place] [address] [place] [address] Kadeem Marshall P.A.-C., M.S. Secondary Malignant Neoplasm Peritoneum (HCC) (Primary Dx); Malignant Neoplasm Of Cecum (HCC) 12/15/2024 7:40 AM CDT Lab Department of Infusion Therapy in [place], [place] [address] [place] [address] Preet Segura M.D. Malignant Neoplasm Of Cecum (HCC); Secondary Malignant Neoplasm Peritoneum (HCC) 12/15/2024 Orders Only Department of Oncology in [place], [place] [address] [place] [address] Chelly Starr, Pharm.D., R.Ph. from Last 3 Months Family History Medical History Relation Name Comments Prostate cancer Father Negrito Unger he beat it. Skin cancer Father Negrito Unger on face Hypertension Mother Anisa Unger Lymphadema Mother Anisa Unger Thyroid disease Mother Anisa Unger Hypothyroidi sm Psoriasis Son 1 Leo Meng Asthma Son 2 Earnestine Kwon Colon cancer Neg Hx Relation Name Status Comments Father Negrito Unger Mother Anisa Unger Son 1 Leo Meng Alive Son 2 Earnestine Dufflakisha Alive Social History Tobacco Use Types Packs/Day [...] things needed for daily living? No 03/07/2025 [facility] Utilities Answer Date Recorded In the past 12 months has th [employer], gas, oil, or water company threatened to shut off services in your home? No 03/07/2025 Housing Stability Answer Date Recorded What is your living situation today? I have a [facility] place to live 03/07/2025 Education Answer [...] Comments Blood Pressure 141/85 03/07/2025 12:53 PM SHIPPING SUPPORT CLERK Pulse 134 03/07/2025 12:53 PM SHIPPING SUPPORT CLERK Temperature 36.7 C (98 F) 03/07/2025 12:53 PM SHIPPING SUPPORT CLERK Respiratory Rate 17 03/06/2025 11:23 AM SHIPPING SUPPORT CLERK Oxygen Saturation 100% 03/06/2025 1:45 PM SHIPPING SUPPORT CLERK Inhaled Oxygen Concentration - - Weight 65.6 kg (144 lb 10 oz) 03/07/2025 12:53 P M SHIPPING SUPPORT CLERK Height 157.5 cm (5' 2.01) 02/23/2025 9:00 AM CD T Body Mass Index 26.44 02/23/2025 9:00 AM CDT Plan of Treatment Upcoming Encounters Date Type Department Care Team (Late st Contact Info) Description 03/12/2025 3:30 PM SHIPPING SUPPORT CLERK Appointment Department of Radiation Oncology in [place], [place] [address] [place] [phone] Faith Ellis M.D. [address] [place] [phone] 03/15/2025 8:30 AM SHIPPING SUPPORT CLERK Lab Department of Laboratory Medicine and Pathology, [facility], in [place], [place] [address] [place] [phone] Kadeem Marshall P.A.-C., M.S. [address] [place] [phone] 03/15/2025 9:40 AM SHIPPING SUPPORT CLERK Education Department of Oncology in [address] [address] Kadeem Marshall P.A.-C., M.S. [address] [place] [phone] 03/15/2025 10:30 AM SHIPPING SUPPORT CLERK Infusion Department of Oncology in [address] [phone] Kadeem Marshall P.A.-C., M.S. [address] [place] [phone] 04/05/2025 8:30 AM SHIPPING SUPPORT CLERK Lab Department of Oncology in [place], [place] [address] [place] [phone] Kadeem Marshall P.A.-C., M.S. [address] [place] [phone] 04/05/2025 10:40 AM SHIPPING SUPPORT CLERK Office Visit Department of Oncology in [address] [phone] Kadeem Marshall P.A.-C., M.S. [address] [place] [phone] 04/05/2025 1:00 PM SHIPPING SUPPORT CLERK Infusion Department of Oncology in [place], [place] [address] [place] [phone] Kadeem Marshall P.A.-C., M.S. [address] [place] [phone] 04/30/2025 9:20 AM SHIPPING SUPPORT CLERK Office Visit Department of Oncology in [place], [place] [address] [place] [phone] Kadeem Marshall P.A.-C., M.S. [address] [place] [phone] Health Maintenance Due Date Last Done Comments [...] (#1) 2024 Creatinine Level (Kidney Function Test) 03/05/2026 03/05/2025, 02/23/2025, 01/27/2025, Additional history exists Potassium Level 03/05/2026 03/05/2025, 01/26, 01/27/2025, Additional history exists Sodium Level 03/05/2026 03/05/2025, 01/26, 01/27/2025, Additional history exists Lipid (Cholesterol) Screening 03/11/2027 03/11/2022 Colonoscopy 07/04/2027 07/03/2022, 07/25, 08/03/2014 Colorectal Cancer Surveillance 07/04/2027 Fasting Glucose for Diabetes Screening 03/05/2028 03/05/2025, 02/23/2025, 01/27/2025, Additional history exists HPV Vaccines Aged Out No longer eligi ble based on patient's age to complete this topic IPV Vaccines Aged Out No longer eligi ble based on patient's age to complete this topic Medical Devices Implanted Type Area Poured Concrete Wall Technician Device Identifier Shelf Expiration Date Model / Serial / Lot Prt Cath Infus Mri Intrmd 8f - [id number] Implanted:Qt y: 1 on 11/06/2022 by Don Erickson M.D. at [facility] Implantable [place] [employer] 11/24/2023 [id number] / / [id number] Gracia [employer] 3x5 - [id number] Implanted:Qt y: 1 on 05/27/2023 by Michele Baldwin M.D., M.S. at [facility] Mesh or Patch N/A: Abdomen [employer] 09/25/2025 [id number] / / [id number] [employer] Full Sheet, 10-Pk 5in X 6in, 1 - [id number] Implanted:Qt y: 1 on 05/27/2023 by Michele Baldwin M.D., M.S. at [facility] Mesh or Patch N/A: Abdomen [place]endo 07/20/2025 [id number] / / [id number] Clip M/L Clp Vsl Endo Lgt Md/[place] 3-10mm Implanted:Qt y: 1 on 07/30/2022 by Marquise Meeks M.B., Ch.B., M.P.H. at [facility] [employer] 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) Ascites Chronic CYTOLOGY NON-LIVE IN HOUSEKEEPER Routine 03/06/2025 11:50 AM SHIPPING SUPPORT CLERK PROTEIN, TOTAL, BF Routine 03/06/2025 11:50 AM SHIPPING SUPPORT CLERK ALBUMIN, BODY FLUID Routine 03/06/2025 11:50 AM SHIPPING SUPPORT CLERK CELL COUNT AND DIFFERENTIAL, BF Routine 03/06/2025 11:50 AM SHIPPING SUPPORT CLERK CT ABDOMEN PELVIS WITH IV CONTRAST RAD - Semiurgent (Fast; most ED patients; some inpatients) 03/05/2025 1:42 PM SHIPPING SUPPORT CLERK LIPASE, S/P STAT 03/05/2025 1:18 PM SHIPPING SUPPORT CLERK LACTATE, B/P STAT 03/05/2025 1:18 PM SHIPPING SUPPORT CLERK COMPREHENSIVE METABOLIC PANEL, S/P STAT 03/05/2025 1:18 PM SHIPPING SUPPORT CLERK CBC WITH DIFFERENTIAL, B STAT 03/05/2025 1:18 PM SHIPPING SUPPORT CLERK HC URINALYSIS AUTO W MICRO STAT 03/05/2025 12:47 PM SHIPPING SUPPORT CLERK URINALYSIS WITH MICROSCOPIC IF INDICATED, U STAT 03/05/2025 12:47 PM SHIPPING SUPPORT CLERK SEDIMENTATION RATE, B Routine 02/23/2025 6:58 AM CDT Malignant Neoplasm Of Cecum (HCC) Secondary Malignant Neoplasm Liver (HCC) Secondary Malignant Neoplasm Peritoneum (HCC) C-REACTIVE PROTEIN (CRP), S/P Routine 02/23/2025 6:58 AM CDT Malignant Neoplasm Of Cecum (HCC) Secondary Malignant Neoplasm Liver (HCC) Secondary Malignant Neoplasm Peritoneum (HCC) CARCINOEMBRYONIC AG (CEA), S Routine 02/23/2025 6:58 AM CDT Malignant Neoplasm Of Cecum (HCC) BILIRUBIN DIRECT, S/P Routine 02/23/2025 6:58 AM CDT Malignant 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) COMPREHENSIVE METABOLIC PANEL, S/P Routine 02/23/2025 6:58 AM CDT Malignant 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) CBC WITH DIFFERENTIAL, B Routine 02/23/2025 6:58 AM CDT Malignant 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) MAGNESIUM, S Routine 02/23/2025 6:58 AM CDT Malignant 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 03/07/2025 3:41 PM Initial [...] imaging was appropriate and completed without incident. Residential Aide use:No Faith Ellis M.D. RADIATION ONCOLOGY ORDERA BLES Final Result KARL garza * GI Procedure Note (03/06/2025 12:14 PM SHIPPING SUPPORT CLERK) Anatomical Region Laterality Modality Endoscopy 03/06/2025 12:1 4 PM SHIPPING SUPPORT CLERK Impressions 03/06/2025 2:20 PM SHIPPING SUPPORT CLERK Post-op Diagnoses: - Paracentesis successfully performed. Narrative 03/06/2025 2:20 PM SHIPPING SUPPORT CLERK [facility] Patient Name: Hayley Unger Procedure Date: [...] GI PROCEDURE ORDERABLES Fi nal Result * Paracentesis (03/06/2025 12:14 PM SHIPPING SUPPORT CLERK) Anatomical Region Laterality Modality Endoscopy 03/06/2025 12:1 4 PM SHIPPING SUPPORT CLERK Marquise Gill M.D. GI PROCEDURE ORDERABLES Fi nal Result * (ABNORMAL) Cytology Non-LIVE IN HOUSEKEEPER (03/06/2025 11:50 AM SHIPPING SUPPORT CLERK) (A) 03/07/2025 10:27 AM SHIPPING SUPPORT CLERK ECLR Report electronically signed by Rod Bailey M.D. I verify that I have examined all relevant slides/materi als for the specimen(s) and rendered or confirmed the diagnosis. (A) 03/07/2025 10:27 AM SHIPPING SUPPORT CLERK ECLR Gross Description Received 44 cc of blood tinged fluid without fixative.(A) 03/07/2025 10:27 AM SHIPPING SUPPORT CLERK ECLR Source A. Peritoneal, fluid(A) 03/07/2025 10:27 AM SHIPPING SUPPORT CLERK ECLR Interpretation A. Peritoneal, fluid (cytospin/manuel l block): Positive for malignancy. Metastatic adenocarcinom a. Digital imaging was used in the diagnostic assessment of this case, cell block A. (A) 03/07/2025 10:27 AM SHIPPING SUPPORT CLERK ECLR Fluid 03/06/2025 11:5 0 AM SHIPPING SUPPORT CLERK 03/06/2025 3:10 PM SHIPPING SUPPORT CLERK Marquise Gill M.D. LAB SURG PATH ORDERABLES F inal Result Performing Organization Address City/State/[facility] Co de Phone Number [facility] [address] [place] [id number], [facility] ECLR [address] [place] [phone] * Protein, Total, Body Fluid (03/06/2025 11:50 AM SHIPPING SUPPORT CLERK) Protein, Total, BF 4.1 See Comment g/dL 03/06/2025 4:08 PM SHIPPING SUPPORT CLERK ECLR Comment: ----ADDITIONAL INFORMATION---- A pleural fluid [...] clinical findings. All other fluids refer to www.[employer].Formspring for further interpretive information. This test has been modified from the geology professor's instructions. Its performance characteristics were determined by [facility] in a manner consistent with CLIA requirements. This test has not been cleared or approved by the U.S. Food and Drug Administration. Fluid Type, Protein, Total PERITONEAL 03/06/2025 4:07 PM SHIPPING SUPPORT CLERK ECLR Fluid (Peritoneal Fluid) 03/06/2025 11:50 AM SHIPPING SUPPORT CLERK 03/06/2025 3:11 PM SHIPPING SUPPORT CLERK Marquise Gill M.D. LAB BODY FLUIDS AND STOOLS ORDERABLES Final Result [facility] [address] [place] [id number], [facility] ECLR [facility] in [address] [address] * Cell Count and Differential, Body Fluid (03/06/2025 11:50 AM SHIPPING SUPPORT CLERK) Fluid Type Peritoneal /Paracente sis 03/06/2025 12:32 PM SHIPPING SUPPORT CLERK RDWG Gross Appearance Bloody 03/06/20 12:32 PM SHIPPING SUPPORT CLERK RDWG Total Nucleated Cells 945 /mcL 03/06/2025 12:32 PM SHIPPING SUPPORT CLERK RDWG Comment: ----REFERENCE VALUE---- Synovial: <150 Peritoneal: <500 Pleural: <500 Pericardial: <500 Neutrophils 41 % 03/06/2025 1:13 PM SHIPPING SUPPORT CLERK RDWG Comment: ----REFERENCE VALUE---- Synovial: <25% Peritoneal: <25% Pleural: <25% Pericardial: <25% Lymphocytes 17 Synovial: <75% % 03/06/2025 1:13 PM SHIPPING SUPPORT CLERK RDWG Monocytes/Macrop hages 42 Synovial: <70% % 03/06/2025 1:13 PM SHIPPING SUPPORT CLERK RDWG Reviewed by leonard 03/06/2025 1:13 PM SHIPPING SUPPORT CLERK RDWG Fluid (Peritoneal Fluid) 03/06/2025 11:50 AM SHIPPING SUPPORT CLERK 03/06/2025 12:13 PM SHIPPING SUPPORT CLERK us Marquise Gill M.D. LAB BODY FLUIDS AND STOOLS ORDERABLES Final Result [facility] [address] [place] [address], [facility] RDWG [facility] in [place] [address] [place] [phone] * Albumin, Body Fluid (03/06/2025 11:50 AM SHIPPING SUPPORT CLERK) Albumin BF 2.9 See Comment g/dL 03/06/2025 4:09 PM SHIPPING SUPPORT CLERK ECLR Comment: ----ADDITIONAL INFORMATION---- Peritoneal fluid albumin is used to calculate the serum-ascites albumin gradient (SAAG). Values greater than or equal to 1.1 g/dL suggest portal hypertension. Pleural fluid albumin may be used to calculate a serum-effusion albumin gradient. Values greater than 1.2 g/dL are most consistent with a transudative process. All other fluids refer to www.Ubicoms.com for further interpretive information. This test has been modified from the geology professor's instructions. Its performance characteristics were determined by [facility] in a manner consistent with CLIA requirements. This test has not been cleared or approved by the U.S. Food and Drug Administration. Fluid Type, Albumin PERITONEAL 03/06/2025 4:07 PM SHIPPING SUPPORT CLERK ECLR Fluid (Peritoneal Fluid) 03/06/2025 11:50 AM SHIPPING SUPPORT CLERK 03/06/2025 3:11 PM SHIPPING SUPPORT CLERK us Marquise Gill M.D. LAB BODY FLUIDS AND STOOLS ORDERABLES Final Result [facility] [address] [place] [address], [facility] ECLR [facility] in [address] [address] * CT Abdomen Pelvis with IV Contrast (03/05/2025 1:42 PM SHIPPING SUPPORT CLERK) Only the most recent of2 resultswithin the time period is included. Anatomical Region Laterality Modality Abdomen, Pelvis, Abdominal R ST LOS, Abdominal ARZ LOS, Abdominal FLA LOS N/A Computed Tomography 03/05/2025 1:35 PM SHIPPING SUPPORT CLERK Impressions 03/05/2025 1:56 PM SHIPPING SUPPORT CLERK Since 02/22/2025, mild interval progression of the metastatic disease in the abdomen and pelvis with increased size of multiple hepatic and serosal metastases. The scattered peritoneal and abdominal wall metastatic implants are grossly unchanged. Increased now moderate volume abdominopelvic ascites. Narrative 03/05/2025 1:56 PM SHIPPING SUPPORT CLERK EXAM: CT ABDOMEN PELVIS WITH IV CONTRAST [...] IMG CT PROCEDURE S Final Result * (ABNORMAL) CBC with Differential, Blood (03/05/2025 1:18 PM SHIPPING SUPPORT CLERK) Only the most recent of7 resultswithin the time period is included. Hemoglobin 12.9 11.6 - 15.0 g/dL 03/05/2025 1:25 PM SHIPPING SUPPORT CLERK CNFL Hematocrit 38.2 35.5 - 44.9 % 03/05/2025 1:25 PM SHIPPING SUPPORT CLERK CNFL Erythrocytes 4.09 3.92 - 5.13 x10(12)/L 03/05/2025 1:25 PM SHIPPING SUPPORT CLERK CNFL MCV 93.4 78.2 - 97.9 fL 03/05/2025 1:25 PM SHIPPING SUPPORT CLERK CNFL RBC Distrib Width 13.6 12.2 - 16.1 % 03/05/2025 1:25 PM SHIPPING SUPPORT CLERK CNFL Platelet Count 193 157 - 371 x10(9)/L 03/05/2025 1:25 PM SHIPPING SUPPORT CLERK CNFL Leukocytes 7.2 3.4 - 9.6 x10(9)/L 03/05/2025 1:25 PM SHIPPING SUPPORT CLERK CNFL Neutrophils 5.70 1.56 - 6.45 x10(9)/L 03/05/2025 1:25 PM SHIPPING SUPPORT CLERK CNFL Lymphocytes 0.90(L) 0.95 - 3.07 x10(9)/L 03/05/2025 1:25 PM SHIPPING SUPPORT CLERK CNFL Monocytes 0.52 0.26 - 0.81 x10(9)/L 03/05/2025 1:25 PM SHIPPING SUPPORT CLERK CNFL Eosinophils 0.04 0.03 - 0.48 x10(9)/L 03/05/2025 1:25 PM SHIPPING SUPPORT CLERK CNFL Basophils <0.04 0.01 - 0.08 x10(9)/L 03/05/2025 1:25 PM SHIPPING SUPPORT CLERK CNFL Blood (Blood, Venous) 03/05/2025 1:18 PM SHIPPING SUPPORT CLERK 03/05/2025 1:20 PM SHIPPING SUPPORT CLERK us Tyesha Rose APRN, C.N.P. LAB BLOOD ADD-ON Final Result [facility] [address] [place] [address], [facility] CNFL [facility] in [address] [address] * Lipase (03/05/2025 1:18 PM SHIPPING SUPPORT CLERK) Lipase, P 16 13 - 60 U/L 03/05/2025 2: 01 PM SHIPPING SUPPORT CLERK CNFL Blood (Blood, Venous) 03/05/2025 1:18 PM SHIPPING SUPPORT CLERK 03/05/2025 1:20 PM SHIPPING SUPPORT CLERK us Tyesha Rose APRN, C.N.P. LAB BLOOD ADD-ON Final Result [facility] [address] [place] [address], [facility] [place] [address] * Lactate (03/05/2025 1:18 PM SHIPPING SUPPORT CLERK) Lactate, P 1.1 0.5 - 2.2 mmol/L 03/05/2025 1:39 PM SHIPPING SUPPORT CLERK CNFL Blood (Blood, Venous) 03/05/2025 1:18 PM SHIPPING SUPPORT CLERK 03/05/2025 1:20 PM SHIPPING SUPPORT CLERK us Tyesha Rose APRN, C.N.P. LAB BLOOD NON AD D-ON Final Result Performing Organization Address City/[facility] Co de Phone Number [facility] [address] [place] [address], [place] [address] * (ABNORMAL) Comprehensive Metabolic Panel (03/05/2025 1:18 PM SHIPPING SUPPORT CLERK) Only the most recent of6 resultswithin the time period is included. Potassium, P 4.4 3.6 - 5.2 mmol/L 03/05/2025 2:01 PM SHIPPING SUPPORT CLERK CNFL Sodium, P 131(L) 135 - 145 mmol/L 03/05/2025 2:01 PM SHIPPING SUPPORT CLERK CNFL Chloride, P 91(L) 98 - 107 mmol/L 03/05/2025 2:01 PM SHIPPING SUPPORT CLERK CNFL Bicarbonate, P 24 22 - 29 mmol/L 03/05/2025 2:01 PM SHIPPING SUPPORT CLERK CNFL Anion Gap, P 16(H) 7 - 15 03/05/2025 2:01 PM SHIPPING SUPPORT CLERK CNFL BUN (Blood Urea Nitrogen), P 8 6 - 21 mg/dL 03/05/2025 2:01 PM SHIPPING SUPPORT CLERK CNFL Creatinine 0.56(L) 0.59 - 1.04 mg/dL 03/05/2025 2:01 PM SHIPPING SUPPORT CLERK CNFL Estimated GFR (eGFR) >90 >=60 mL/min/BS A 03/05/2025 2:01 PM SHIPPING SUPPORT CLERK CNFL Comment: Estimated GFR calculated using the 2020 CKD_EPI creatinine equation. Calcium, Total, P 9.3 8.8 - 10.2 mg/dL 03/05/2025 2:01 PM SHIPPING SUPPORT CLERK CNFL Glucose, P 89 70 - 140 mg/dL 03/05/2025 2:01 PM SHIPPING SUPPORT CLERK CNFL Protein, Total, P 6.1(L) 6.3 - 7.9 g/dL 03/05/2025 2:01 PM SHIPPING SUPPORT CLERK CNFL Albumin, P 3.6 3.5 - 5.0 g/dL 03/05/2025 2:01 PM SHIPPING SUPPORT CLERK CNFL Aspartate Aminotransferase (AST), P 27 8 - 43 U/L 03/05/2025 2:01 PM SHIPPING SUPPORT CLERK CNFL Alkaline Phosphatase, P 79 35 - 104 U/L 03/05/2025 2:01 PM SHIPPING SUPPORT CLERK CNFL Alanine Aminotransferase (ALT), P 15 7 - 45 U/L 03/05/2025 2:01 PM SHIPPING SUPPORT CLERK CNFL Bilirubin, Total, P 0.3 0.0 - 1.2 mg/dL 03/05/2025 2:01 PM SHIPPING SUPPORT CLERK CNFL Blood (Blood, Venous) 03/05/2025 1:18 PM SHIPPING SUPPORT CLERK 03/05/2025 1:20 PM SHIPPING SUPPORT CLERK us Tyesha Rose APRN, C.N.P. LAB BLOOD ADD-ON Final Result [facility] [address] [place] [address], [facility] CNFL [facility] in [address] [address] * (ABNORMAL) Urinalysis with Microscopic if Indicated: Urine, Midstream (03/05/2025 12:47 PM SHIPPING SUPPORT CLERK) Source Urine, Urine, Midstream 03/05/2025 12:47 PM SHIPPING SUPPORT CLERK CNFL Clarity Clear Clear 03/05/2025 12:50 PM SHIPPING SUPPORT CLERK CNFL Color Yellow 03/05/2025 12:50 PM SHIPPING SUPPORT CLERK CNFL Comment: ----REFERENCE VALUE---- Colorless Yellow Harriett Blood Negative Negative 03/05/2025 12:50 PM SHIPPING SUPPORT CLERK CNFL Nitrite Negative Negative 03/05/2025 12:50 PM SHIPPING SUPPORT CLERK CNFL Leukocyte Esterase Negative Negative 03/05/2025 12:50 PM SHIPPING SUPPORT CLERK CNFL Protein 30(A) mg/dL 03/05/2025 12:50 PM SHIPPING SUPPORT CLERK CNFL Comment: ----REFERENCE VALUE---- Negative Trace Glucose Negative Negative mg/dL 03/05/2025 12:50 PM SHIPPING SUPPORT CLERK CNFL Ketones, QI(U) >=80(A) Negative mg/dL 03/05/2025 12:50 PM SHIPPING SUPPORT CLERK CNFL Bilirubin Large(A) Negative 03/05/2025 12:50 PM SHIPPING SUPPORT CLERK CNFL pH 5.5 5.0 - 8.0 03/05/2025 12:50 PM SHIPPING SUPPORT CLERK CNFL Specific Vincent >=1.030 1.001 - 1.035 03/05/2025 12:50 PM SHIPPING SUPPORT CLERK CNFL Urobilinogen 0.2 0.2 - 1.0 mg/dL 03/05/2025 12:50 PM SHIPPING SUPPORT CLERK CNFL Urine (Urine, Midstream) 03/05/2025 12:47 PM SHIPPING SUPPORT CLERK 03/05/2025 12:47 PM SHIPPING SUPPORT CLERK us Tyesha Rose APRN, C.N.P. LAB URINE ORDERA BLES Final Result [facility] [address] [place] [address], [facility] CNFL [facility] in [address] [address] * Microscopic Manual (03/05/2025 12:47 PM SHIPPING SUPPORT CLERK) White Blood Cells 4-10 /hpf 03/05/2025 1:11 PM SHIPPING SUPPORT CLERK CNFL Comment: ----REFERENCE VALUE---- Males: 0-3 Females: 0-10 Unknown: 0-10 Red Blood Cells Occ-2 0 - 2 /hpf 1:11 PM SHIPPING SUPPORT CLERK CNFL Dysmorphic Red Blood Cells <=25 <=25 % 03/05/2025 1:11 PM SHIPPING SUPPORT CLERK CNFL Hyaline Casts 21-30 /lpf 03/05/2025 1:11 PM SHIPPING SUPPORT CLERK CNFL Squamous Cells Occ-3 /hpf 03/05/2025 1:11 PM SHIPPING SUPPORT CLERK CNFL Bacteria None Seen None Seen 03/05/2025 1:11 PM SHIPPING SUPPORT CLERK CNFL Urine 03/05/2025 12:4 7 PM SHIPPING SUPPORT CLERK 03/05/2025 12:47 PM SHIPPING SUPPORT CLERK us Tyesha Rose APRN, C.N.P. LAB URINE ORDERA BLES Final Result Performing Organization Address City/[facility]/ZIP Co de Phone Number [facility] [address] [place] [address], [facility] CNFL [facility] [place] [address] * (ABNORMAL) Sedimentation Rate (02/23/2025 6:58 AM CDT) Sedimentation Rate, B 25(H) 2 - 22 mm/h 02/23/2025 8:02 AM CDT DTL Blood (Blood, Venous) 02/23/2025 6:58 AM CDT 02/23/2025 7:11 AM CDT us Kadeem Marshall P.A.-C., M.S. LAB BLOOD ADD-ON Fi nal Result [facility] [address] [place] [address], [place] DTL [facility] [address] [place] [address] * (ABNORMAL) CRP (C-Reactive Protein) (02/23/2025 6:58 AM CDT) Only the most recent of2 resultswithin the time period is included. [facility] C-Reactive Protein (CRP), S 13.3(H) <5.0 mg/L 02/23/2025 7:51 AM CDT DT Blood (Blood, Venous) 02/23/2025 6:58 AM CDT 02/23/2025 7:11 AM CDT us Kadeem Marshall P.A.-C., M.S. LAB BLOOD ADD-ON Fi nal Result Performing Organization Address City/[facility] Co de Phone Number [facility] [address] [place] [address] * Magnesium (02/23/2025 6:58 AM CDT) Only the most recent of5 resultswithin the time period is included. [facility] Magnesium, S 1.8 1.7 - 2.3 mg/dL 02/23/2025 7:51 AM CDT DT Blood (Blood, Venous) 02/23/2025 6:58 AM CDT 02/23/2025 7:11 AM CDT us Kadeem Marshall P.A.-C., M.S. LAB BLOOD ADD-ON Fi nal Result Performing Organization Address [facility] Co de Phone Number [facility] [address] [place] [address] * (ABNORMAL) CEA (Carcinoembryonic Antigen) (02/23/2025 6:58 AM CDT) [facility] Carcinoembryonic Ag (CEA), S 11.1(H) ng/mL 02/23/2025 11:11 AM CDT [facility] Comment: ----REFERENCE VALUE---- <=3.0 (Non-smokers) Some smokers may have elevated CEA, usually <5.0. ----ADDITIONAL INFORMATION---- The testing method is an immunoenzymatic assay manufactured by [employer] and performed on the GMG33 DxI 800. Values obtained with different assay methods or kits may be different and cannot be used interchangeably. Test results cannot be interpreted as absolute evidence for the presence or absence of malignant disease. Blood (Blood, Venous) 02/23/2025 6:58 AM CDT 02/23/2025 10:07 AM CDT us Kadeem Marshall P.A.-C., M.S. LAB BLOOD ADD-ON Fi nal Result [facility] [address] [place] [address] [facility] [address] [place] [address] * Bilirubin, Direct (02/23/2025 6:58 AM CDT) Only the most recent of5 resultswithin the time period is included. Pathologist [facility] Bilirubin, Direct, S 0.1 0.0 - 0.3 mg/dL 02/23/2025 7:51 AM CDT DTL Blood (Blood, Venous) 02/23/2025 6:58 AM CDT 02/23/2025 7:11 AM CDT us Kadeem Marshall P.A.-C., M.S. LAB BLOOD ADD-ON Fi nal Result Performing Organization Address City/[facility]/ZIP Co de Phone Number [facility] [address] [place] [address], [facility] [address] [place] [address] * CT Chest with IV Contrast (02/22/2025 [...] Mediastinum: Unremarkable visualized thyroid gland. Right chest [id number] terminates in the high right atrium. Normal [...] us Christopher Arteaga APRN, C.N.P., D.N.P. IMG CT GREER OTDD Final Result * (ABNORMAL) Basic Metabolic Panel [...] D.N.P. LAB BLOOD AD D-ON Final Result [facility] [address] [place] [address], [facility] CNFL [facility] in [address] [address] * Zinc (01/25/2025 8:38 AM CDT) Only the most recent of4 resultswithin the time period is included. Pathologist [facility] Zinc, S 63 60 - 106 mcg/dL 01/26/2025 10:01 AM CDT [facility] Comment: ----ADDITIONAL INFORMATION---- This test was developed and its performance characteristics determined by [facility] in a manner consistent with CLIA requirements. This test has not been cleared or approved by the U.S. Food and Drug Administration. Blood (Blood, Venous) 01/25/2025 8:38 AM CDT 01/25/2025 11:10 AM CDT Kadeem Marshall P.A.-C., MAlpeshSAlpesh LAB BLOOD NON ADD-O N Final Result [facility] [address] [place] [address] [facility] [address] [place] [address] [place] [address] * S-TSH (Thyroid-Stimulating Hormone - Sensitive) (01/25/2025 8:38 AM CDT) Only the most recent of4 resultswithin the time period is included. Pathologist [facility] TSH, Sensitive 2.6 0.3 - 4.2 mIU/L 01/25/2025 9:40 AM CDT DTL Blood (Blood, Venous) 01/25/2025 8:38 AM CDT 01/25/2025 8:44 AM CDT us Kadeem Marshall P.A.-C. M.S. LAB BLOOD ADD-ON Fi nal Result [facility] [address] [place] [address], [facility] DTL [facility] [address] [place] [address] * EXT Tempus xT DNA And RNA (12/15/2024 12:56 PM CDT) [facility] EXT Reason for Study To identify somatic [...] CDT [facility] EXT Tempus Portal [email or web address] [email or web address] [id number] 12/15/2024 12:56 PM CDT [facility] Comment:Tempus [...] Status: Consensus Evidence ID: [id number] Variant: [id number]-dyozqjkj Label: FDA Off Label FDA Approved?: Yes On label?: No 12/15/2024 12:56 PM CDT [facility] EXT Tempus: Potential Therapy 4 Gene: 3430^ERBB2^HGNC Variant: p.V777L Match Type: snvIndel Match Type Description: ERBB2 p.V777L Agent: Ado-Trastuzumab Emtansine Drug Class: Anti-HER2 MAb Tissue: Non-Small Cell Lung Cancer Association: Response Evidence Status: Consensus Evidence ID: NCCN KDB Variant: [id number]-ot-dxfnlfif Label: FDA Off Label FDA Approved?: Yes [...] Status: Consensus Evidence ID: GEOFFREYN KDB Variant: Mnwp-cr-jdxbiwod Label: FDA Off Label FDA Approved?: Yes On label?: No 12/15/2024 12:56 PM CDT [facility] EXT Tempus: Potential Therapy 9 Gene: 3430^ERBB2^HGNC Variant: p.V777L Match Type: snvIndel Match Type Description: ERBB2 p.V777L Agent: Neratinib Drug Class: Gonzales-HER TKI Tissue: Breast Cancer Association: Response Evidence Status: Consensus Evidence ID: MOSES KDB Variant: Ruch-hq-zpadmhrd Label: FDA Off Label FDA Approved?: Yes [...] Response Evidence Status: Clinical research Evidence ID: [id number] Evidence URL: http://www.ncbi.nlm .nih.gov/pubmed/248 09338 Evidence Title: Lapatinib plus paclitaxel versus paclitaxel [...] Status: Consensus Evidence ID: NCCN KDB Variant: Dyht-wk-qfgnrtde Label: FDA Off Label FDA Approved?: Yes On label?: No 12/15/2024 12:56 PM CDT [facility] EXT Tempus: Potential Therapy 13 Gene: 3430^ERBB2^HGNC Variant: p.V777L Match Type: snvIndel Match Type Description: ERBB2 p.V777L Agent: Trastuzumab + Neratinib Drug Class: Combination (Anti-HER2 MAb + Gonzales-HER TKI) Tissue: Breast Cancer Association: Response Evidence Status: Consensus Evidence ID: GEOFFREYN KDB Variant: Qlsi-tl-rqpnuscr Label: FDA Off Label FDA Approved?: Yes [...] Status: Consensus Evidence ID: NCCN KDB Variant: Qgzn-rf-newxzwuz Label: FDA Off Label FDA Approved?: Yes On label?: No 12/15/2024 12:56 PM CDT [facility] EXT Tempus: Potential Therapy 16 Gene: 3430^ERBB2^HGNC Variant: p.V777L Match Type: snvIndel Match Type Description: ERBB2 p.V777L Agent: Trastuzumab Deruxtecan Drug Class: MAb-Drug Conjugate Tissue: Non-Small Cell Lung Cancer Association: Response Evidence Status: Consensus Evidence ID: MOSES KDB Variant: Fwdh-cz-ohrsjsrn Label: FDA Off Label FDA Approved?: Yes On label?: No 12/15/2024 12:56 PM CDT [facility] EXT Tempus: Potential Therapy 17 Gene: 3430^ERBB2^HGNC Variant: ERBB2 Copy number gain Match Type: cnv Match Type Description: ERBB2 Copy number gain Agent: Trastuzumab Deruxtecan Drug Class: MAb-Drug Conjugate Tissue: Gastric Adenocarcinoma Association: Response Evidence Status: Consensus Evidence ID: GEOFFREYN Label: FDA Off Label FDA Approved?: Yes On label?: No 12/15/2024 12:56 PM CDT [facility] EXT Tempus: Potential Therapy 18 Gene: 3430^ERBB2^HGNC Variant: ERBB2 Copy number gain Match Type: cnv Match Type Description: ERBB2 Copy number gain Agent: Capecitabine + Neratinib Drug Class: Combination (Pyrimidine Analog + Gonzales-HER TKI) Tissue: Breast Cancer Association: Response Evidence Status: Consensus Evidence ID: MOSES Label: FDA Off Label FDA Approved?: Yes [...] Combination (Anti-HER2 MAb + Anti-Tubulin Agent + [place] Agent) Tissue: Uterine Serous Carcinoma Association: Response [...] 1: Matched criteria Clinical Trial NCT ID: [id number] Clinical Trial Title: Testing the Safety and Tolerability of the Anti-cancer Drugs Trastuzumab Deruxtecan and Neratinib for Cancers With Changes in the HER2 Gene Clinical Trial URL: https://clinicaltri als.gov/ct2/show/NC U53389614 Clinical Phase: Phase 1 Clinical Trial Matches: ERBB2 (HER2) p.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, ERBB2 (HER2) p.V777L mutation, ERBB2 (HER2) amplification Clinical Trial Distance and Location: [address] [place] [address] 12/15/2024 12:56 PM CDT [facility] EXT Trial 2: Matched criteria Clinical Trial NCT ID: [id number] Clinical Trial Title: A Study to Learn More About How Well Treatment With Sevabertinib ([id number]) Tablets Works and How Safe it is in Participants Who Have a Solid Tumor With Mutations of the Human Epidermal Growth Factor Receptor 2 (HER2) Clinical Trial URL: https://clinicaltri als.gov/ct2/show/NC K61875202 Clinical Phase: Phase 2 Clinical Trial Matches: ERBB2 (HER2) p.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, ERBB2 (HER2) p.V777L mutation Clinical Trial Distance and Location: [address] [place] [address] 12/15/2024 12:56 PM CDT [facility] EXT Trial 3: Matched criteria Clinical Trial NCT ID: [id number] Clinical Trial Title: Trifluridine/Tipira cil and Talazoparib for the Treatment of Patients With Locally Advanced or Metastatic Colorectal or Gastroesophageal Cancer Clinical Trial URL: https://clinicaltri als.gov/ct2/show/NC T76983396 Clinical Phase: Phase 1 Clinical Trial Matches: TP53 p.R282W mutation Clinical Trial Distance and Location: [address], [place] 12/15/2024 12:56 PM CDT [facility] [...] P.A.-C., M.S. 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
--- OUTSIDE RECORDS SUMMARY | 2025-03-08 22:55 | XMS_ITS | Encounter Summary ---
Author Organization [facility] Address [address] [place] [address] Care Team Providers Care Shade Maker Name Role Phone Elsewhere, Pcp Primary Care Provider Unavailabl e Encounter Details Date Type Department Care Team (Late st Contact Info) Description 02/01/2025 Orders Only Department of Infusion Therapy in [address] [phone] Katherine King, R.N. Malignant Neoplasm Of Cecum (HCC) (Primary Dx) Social History Tobacco Use Types Packs/Day Years Used Date Smoking Tobacco: Never Passive Smoke Exposure: Never Smokeless Tobacco: Never Alcohol Use Standard Drinks/Week Comments Not Currently 0 (1 standard drink = 0.6 oz pur e alcohol) [facility] Utilities Answer Date Recorded In the past 12 months has [facility] [employer], gas, oil, or water [employer] threatened to shut off services in your [...] [facility] to live 2024 Education [...] st Contact Info) Description 03/12/2025 3:30 PM ELECTRICAL TEST TECHNICIAN Appointment Department of Radiation Oncology in [place], [place] [address] [place] [phone] Faith Ellis M.D. [address] [place] [phone] 03/15/2025 8:30 AM ELECTRICAL TEST TECHNICIAN Lab Department of Laboratory Medicine and Pathology, [facility], in [place], [place] [address] [place] [phone] Kadeem Marshall P.A.-C., M.S. [address] [place] [phone] 03/15/2025 9:40 AM ELECTRICAL TEST TECHNICIAN Education Department of Oncology in [place], [place] [address] [place] [phone] Kadeem Marshall P.A.-C., M.S. [address] [place] [phone] 03/15/2025 10:30 AM ELECTRICAL TEST TECHNICIAN Infusion Department of Oncology in [place], [place] [address] [place] [phone] Kadeem Marshall P.A.-C., M.S. [address] [place] [phone] 04/05/2025 8:30 AM ELECTRICAL TEST TECHNICIAN Lab Department of Oncology in [address] [phone] Kadeem Marshall P.A.-C., M.S. [address] [place] [phone] 04/05/2025 10:40 AM ELECTRICAL TEST TECHNICIAN Office Visit Department of Oncology in [address] [phone] Kadeem Marshall P.A.-C., M.S. [address] [place] [phone] 04/05/2025 1:00 PM ELECTRICAL TEST TECHNICIAN Infusion Department of Oncology in [address] [phone] Kadeem Marshall P.A.-C., M.S. [address] [place] [phone] 04/30/2025 9:20 AM ELECTRICAL TEST TECHNICIAN Office Visit Department of Oncology in [place], [place] [address] [place] [phone] Kadeem Marshall P.A.-C., M.S. [address] [place] [phone] documented as of this encounter Visit Diagnoses Diagnosis Malignant Neoplasm Of Cecum (HCC)- Primary documented in this encounter Additional Health Concerns Infection Onset Date Last Indicated Resolved Time Protective Environment 06/02/2024 06/02/2024 documented as of this encounter Care Teams Shade Maker Relationship Specialty Start Date End Date Elsewhere, Pcp PCP - General Internal Medicine 03/08/24 documented as of this encounter
--- OUTSIDE RECORDS SUMMARY | 2025-03-08 22:55 | XMS_ITS | Clinical Summary ---
Author Organization [facility] [facility] Address [address] [place] [address] Care Team Providers Care Preventive Medicine Specialist Name Role Phone Charla Carrington MD Primary Care Provider [facility] Unavailable Allergies Active Allergy Reactions Criticality [...] solution Inject 20 mL/hr intravenous. 5 Active Active Problems Problem Noted Date Diagnosed Date Absence of both cervix and uterus, acquired 06/2022 Overview (11/26/2022): Phyllis 2010 Obesity with body mass index 30 or greater 08/0208/07/2022 Adenocarcinoma of cecum 07/07/2022 Overview (07/07/2022): Colonoscopy 06/2022 cecal cancer, referral to [facility] Abnormal angiogram 10/01/2017 Overview (10/01/2017): Angiogram [...] Date Type Department Care Team Description 03/07/2025 Medical Messaging [facility] [address] [place] [address] Charla Carrington MD Referral needed for [place] [facility] 02/14/2025 2:00 PM CDT Telemedicine [address] [phone] Tarun Vera MBBS Follow Up 02/14/2025 Medical Messaging [facility] [address] [place] [address] Charla Carrington MD New Referrals for [place] 02/09/2025 Travel 02/05/2025 2:45 PM CDT Orders Only [facility] [address] [facility] [address] [place] [facility] 02/05/2025 2:20 PM CDT Office Visit [facility] [address] [place] [address] Charla Carrington MD ER Follow up (from shinges) 02/05/2025 Travel 02/02/2025 Travel 01/31/2025 Travel 12/27/2024 4:00 PM CDT Telemedicine [facility] [address] [place] [address] Tarun Vera MBBS 12/25/2024 Travel 12/21/2024 10:15 AM CDT Orders Only [facility] [address] [facility] [place] [address] Lab, [place] Lab 12/21/2024 Travel 12/16/2024 Travel from Last 3 Months Immunizations Immunization Administration [...] AM CDT Legal Sex Female 8:33 AM TIRE SHOP MANAGER Gender Identity Female 07/28/2023 5:36 AM CDT [...] CDT Respiratory Rate 16 07/03/2022 10:10 AM TIRE SHOP MANAGER Oxygen Saturation 98% 02/05/2025 2:19 PM CDT Inhaled Oxygen Concentration - - Weight 68 kg (150 lb) 02/05/2025 2:19 PM CDT Height 158 cm (5' 2.21) 02/05/2025 2:19 PM CDT Body Mass Index 27.25 02/05/2025 2:19 PM CDT Plan of Treatment Upcoming Encounters Date Type Department Care Team (Late st Contact Info) Description 03/12/2025 8:30 AM TIRE SHOP MANAGER Orders Only [facility] [address] [place] [address] Lab, [place] Health Maintenance Due Date Last Done Comments HIV for age 15-65 1975 Pneumococcal series for age 50+ (1 of 2 - PCV) 1979 Zoster (shingles) series for age 50+ (1 of 2) 1979 RSV vaccine for adults or (1 - Risk 50-74 years 1-dose series) 2010 Colonoscopy through age 75 07/04/202307/03, 07/03/2022, 07/03/2022, [...] ИРИНА BILAT SCREEN Routine 03/02/2023 4:38 PM TIRE SHOP MANAGER Visit for screening mammogram COLONOSCOPY SCREENING Routine 07/03/2022 8:25 AM TIRE SHOP MANAGER History of colon polyps ANTI HCV Routine 03/11/2022 5:05 PM TIRE SHOP MANAGER Need for hepatitis C screening test LIPID PANEL W REFLEX MEASURED LDL Routine 03/11/2022 5:05 PM TIRE SHOP MANAGER Hyperlipidemia, unspecified hyperlipidemia type from Last 3 Months or Most Recently Relevant to Health Maintenance Results * XR MAMMO ИРИНА BILAT SCREEN (03/02/2023 4:38 PM TIRE SHOP MANAGER) Anatomical Region Laterality Modality BREASTS, Breast Left, Breast Right Bilateral Mammography Impressions 03/03/2023 2:00 PM TIRE SHOP MANAGER There is no radiographic evidence for malignancy. Recommend annual mammograms. MAMMOGRAM ASSESSMENT: ACR 1 Negative PATIENTS: You will also receive a letter with your examination results in an easy to read format. If you have questions about your results, please contact your referring provider. Narrative 03/03/2023 2:00 PM TIRE SHOP MANAGER For Patients: As a result of the Century Cures Act, medical imaging exams and procedure reports are released immediately into your electronic medical record. You may view this report before your referring provider. If you have questions, please contact your health care provider. XR MAMMO ИРИНА BILAT SCREEN [[id number]] CLINICAL HISTORY: This is an asymptomatic 62 y.o. patient. INDICATION FOR EXAM: Mammogram Screening. TECHNIQUE: CC & MLO views were obtained. This study was evaluated with the assistance of Computer-Aided Detection. Breast Tomosynthesis was used in interpretation. COMPARISON FILM: Yes 02/25/22 [facility] 08/02/17 [facility] FINDINGS: The breasts are heterogeneously dense, which may obscure small masses. There are no dominant masses, suspicious micro calcifications or areas of architectural distortion. us Charla Carrington MD MAMMO Final Resul t * COLONOSCOPY (07/03/2022 8:39 AM TIRE SHOP MANAGER) 07/03/2022 8:39 AM TIRE SHOP MANAGER Narrative Transcriptions Leo Marte MD - 07/03/2022 9:56 AM CST Patient Name: Hayley Mcdonough Procedure Date: 07/03/2022 Gender: Female Date of : 1960 Admit Type: Outpatient Procedure: Colonoscopy Proceduralist: Leo Marte MD , Maia Dye RN(Nurse), Daysi Redman (Nurse) Referring MD: Charla Carrington [...] adequate candidate for conscious sedation. The endoscope [id number] was passed through the anus andadvanced to [...] 8:39 AM Procedure Code(s): --- Professional --- 93040, Colonoscopy, flexible; with biopsy, single or multiple Diagnosis Code(s): --- Professional --- Z86.010, Personal history of colonicpolyps D49.0, Neoplasm of unspecified behavior of digestive system K64.8, Other hemorrhoids CPT copyright 2020 [employer]. All rights reserved. The codes documented in this report are preliminary and upon compact assembler reviewmay be revised to meet current compliance requirements. Scope In: 9:25:46 AM Scope Withdrawal Time 0 hours 9 minutes 43 seconds Scope Out: 9:38:45 AM us Leo Marte MD PROCEDURE ORD Final Res ult * (ABNORMAL) LIPID PANEL W REFLEX MEASURED LDL (03/11/2022 5:05 PM TIRE SHOP MANAGER) CHOLESTEROL,TOTAL 271(H) 100 - 199 mg/dL 03/14/2022 3:15 AM TIRE SHOP MANAGER [facility] TRIGLYCERIDES 149 <150 mg/dL 03/14/2022 3:15 AM TIRE SHOP MANAGER [facility] HDL CHOLESTEROL 60 >40 mg/dL 2 3:15 AM TIRE SHOP MANAGER [facility] NON-HDL CHOLESTEROL 211(H) <145 mg/dl 03/14/2022 3:15 AM TIRE SHOP MANAGER [facility] CHOL/HDL RATIO 4.52(H) <4.50 03/14/2022 3:15 AM TIRE SHOP MANAGER [facility] LDL CHOLESTEROL 181(H) <=130 mg/dL 03/14/2022 3:15 AM TIRE SHOP MANAGER [facility] VLDL CHOLESTEROL 30 <=30 mg/dL 03/14/2022 3:15 AM TIRE SHOP MANAGER [facility] PROVIDER ORDERED STATUS RANDOM 03/14/2022 3:15 AM TIRE SHOP MANAGER [facility] Blood BLOOD SPECIMEN / Unknown Venipuncture / Unknown 03/11/2022 5:05 PM TIRE SHOP MANAGER 03/11/2022 5:05 PM TIRE SHOP MANAGER Charla Carrington MD CHEMISTRY Final Resul t Performing Organization Address City/[facility]/ZIP Co de Phone Number [facility] [address] [place] [address], * ANTI HCV (03/11/2022 5:05 PM TIRE SHOP MANAGER) HEPATITIS C ANTIBODY Non-React ravin Non-React ravin 03/14/2022 3:35 AM TIRE SHOP MANAGER [facility] Comment:Antibodies to HCV no t detected; does not exclude the possibility of exposure to HCV. Blood BLOOD SPECIMEN / Unknown Venipuncture / Unknown 03/11/2022 5:05 PM TIRE SHOP MANAGER 03/11/2022 5:05 PM TIRE SHOP MANAGER Charla Carrington MD SEND OUTS Final Resul t [facility] [address] [place] [address], from Last 3 Months or Most Recently Relevant to Health Maintenance Insurance [employer] [id number] [facility] MEDICA CHOICE Advance Directives * Full Code (Latest Code Status on File) Date Activated Date Inactivated Comments 09/28/2017 10:39 AM 09/28/2017 1:55 PM Care Teams Preventive Medicine Specialist Relationship Specialty Start Date End Date Charla Carrington MD [address] [place] [address] PCP - General Family Practice 07/03/22 Sunshine Leo, GALLITO [address] [place] [address] [place] [address] Nurse Navigator - Oncology Registered Nurse 12/01/24
--- OUTSIDE RECORDS SUMMARY | 2025-03-08 22:55 | XMS_ITS | Encounter Summary ---
Author Organization [facility] Address [address] [place] [address] Care Team Providers Care Relationship Advisor Name Role Phone Elsewhere, Pcp Primary Care Provider Unavailabl e Encounter Details Date Type Department Care Team (Late st Contact Info) Description 02/01/2025 Orders Only Department of Oncology in [place], [place] [address] [place] [address] Kadeem Marshall, P.Jessica.-C., M.S. [address] [place] [address] Social History Tobacco Use Types Packs/Day Years [...] your living situation today? I have a [facility] place to live 2024 Education Answer [...] st Contact Info) Description 03/12/2025 3:30 PM OUTSIDE INSTALLATION MACHINIST Appointment Department of Radiation Oncology in [place], [place] [address] [place] [address] Faith Ellis M.D. [address] [place] [phone] 03/15/2025 8:30 AM OUTSIDE INSTALLATION MACHINIST Lab Department of Laboratory Medicine and Pathology, [facility], in [place], [place] [address] [place] [phone] Kadeem Marshall P.A.-C., M.S. [address] [place] [phone] 03/15/2025 9:40 AM OUTSIDE INSTALLATION MACHINIST Education Department of Oncology in [place], [place] [address] [place] [phone] Kadeem Marshall P.A.-C., M.S. [address] [place] [phone] 03/15/2025 10:30 AM OUTSIDE INSTALLATION MACHINIST Infusion Department of Oncology in [address] [address] Kadeem Marshall P.A.-C., M.S. [address] [place] [phone] 04/05/2025 8:30 AM OUTSIDE INSTALLATION MACHINIST Lab Department of Oncology in [address] [address] Kadeem Marshall P.A.-C., M.S. [address] [place] [phone] 04/05/2025 10:40 AM OUTSIDE INSTALLATION MACHINIST Office Visit Department of Oncology in [address] [phone] Kadeem Marshall P.A.-C., M.S. [address] [place] [phone] 04/05/2025 1:00 PM OUTSIDE INSTALLATION MACHINIST Infusion Department of Oncology in [address] [address] Kadeem Marshall P.A.-C., M.S. [address] [place] [phone] 04/30/2025 9:20 AM OUTSIDE INSTALLATION MACHINIST Office Visit Department of Oncology in [place], [place] [address] [place] [phone] Kadeem Marshall P.A.-C., M.S. [address] [place] [address] documented as of this encounter Visit Diagnoses Not on filedocumented in this encounter Additional Health Concerns Infection Onset Date Last Indicated Resolved Time Protective Environment 06/02/2024 06/02/2024 documented as of this encounter Care Teams Relationship Advisor Relationship Specialty Start Date End Date Elsewhere, Pcp PCP - General Internal Medicine 03/08/24 documented as of this encounter
[2025-03-08 23:02] VITALS: BP 123/77; RESP 16; TEMP 36.8; O2SAT 98; BMI 25.5
--- NOTE | 2025-03-08 23:38 | ED.GENADULT ---
HPI - General Adult General Date Seen: 03/08/25 Chief complaint: Flank Pain Stated complaint: cant urinate Time Seen by Provider: 03/08/25 22:55 Source: patient Mode of arrival: ambulatory Limitations: no limitations History of Present Illness HPI narrative: Patient is a 64-year-old female with diffuse cancer in her abdomen presenting to the emergency department for flank pain. She states that she has bilateral flank pain but is worse on her left compared to her right. She denies having pain like this before. Pain is been going for the past couple days. She did have a CT scan for radiation planning this morning and she states the pain has gotten little bit worse since then. Has been taking Tylenol and ibuprofen for pain without much improvement in her symptoms. She has had some nausea but has not had any vomiting. She is ready concerned that she has not urinated in 2 days despite having plenty of water. Did have a large paracentesis done 2 days ago. She states she has no history of cirrhosis and does not know why she has the fluid in her abdomen. Was started on antibiotics for infection that they found on the drained fluid. Was started on ciprofloxacin. Has not had any fevers or chills. Denies chest pain, shortness of breath, headache, lightheadedness, dizziness. Does feel like she is having some reflux. No other concerns noted. Related Data Home Medications ?Medication ?Instructions ?Recorded ?Confirmed ciprofloxacin HCl 500 mg tablet 500 mg PO BID 03/09/25 03/09/25 Previous Rx's ?Medication ?Instructions ?Recorded hydromorphone 2 mg tablet 2 mg PO Q6H PRN pain #10 tabs 03/09/25 (Dilaudid) Allergies Allergy/AdvReac Type Severity Reaction Status Date / Time doxycycline Allergy Intermediate Rash Verified 03/08/25 23:06 codeine AdvReac Intermediate Nausea Verified 03/08/25 23:06 lisinopril AdvReac Unknown Cough Verified 03/08/25 23:06 morphine AdvReac Unknown Vomiting Verified 03/09/25 15:10 acyclovir AdvReac Verified 03/08/25 23:06 Review of Systems Status of ROS: Reports: 10 or more systems reviewed and unremarkable except as noted in History and below [facility] Medical History Herpes labialis ?B00.1 - Herpesviral vesicular dermatitis (ICD-10) Colon cancer ?C18.9 - Malignant neoplasm of colon, unspecified (ICD-10) Hypertension ?I10 - Essential (primary) hypertension (ICD-10) Dyslipidemia ?E78.5 - Hyperlipidemia, unspecified (ICD-10) Class 1 obesity ?E66.9 - Obesity, unspecified (ICD-10) Chronic gastroesophageal reflux disease ?K21.9 - Gastro-esophageal reflux disease without esophagitis (ICD-10) Allergic rhinitis ?J30.9 - Allergic rhinitis, unspecified (ICD-10) Recurrent sinusitis ?J32.9 - Chronic sinusitis, unspecified (ICD-10) Polyp of colon (10/14/15) ?K63.5 - Polyp of colon (ICD-10) History of vitamin D deficiency ?Z86.39 - Personal history of other endocrine, nutritional and metabolic disease (ICD-10) History of coronary angiogram (09/28/17) ?Z98.890 - Other specified postprocedural states (ICD-10) History of cardiovascular stress test (09/14/17) ?Z92.89 - Personal history of other medical treatment (ICD-10) Surgical History H/O laparoscopy ?Z98.890 - Other specified postprocedural states (ICD-10) H/O partial resection of colon ?Z90.49 - Acquired absence of other specified parts of digestive tract (ICD-10) History of total hysterectomy with removal of both tubes and ovaries (2010) ?Z90.710 - Acquired absence of both cervix and uterus (ICD-10) ?Z90.722 - Acquired absence of ovaries, bilateral (ICD-10) ?Z90.79 - Acquired absence of other genital organ(s) (ICD-10) History of colonoscopy with polypectomy (10/11/15) ?Z98.890 - Other specified postprocedural states (ICD-10) ?Z86.010 - Personal history of colonic polyps (ICD-10) History of 2 sections (1988) ?Z98.891 - History of uterine scar from previous surgery (ICD-10) Family History Maternal Grandmother Stroke Diabetes Family/Other Prostate cancer Gastric cancer Father Heart disease 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 Exercises 3-4 times per week-gym and walks, nonsmoker, no EtOH. What is your current living situation?: I presently have a place to live Problems where you live: no known problems Problems where you live details: N/A In the past 12 months, utilities in danger of being shut off: no In past 12 months, lack of transportation kept you from medical appts, meetings, work, or getting things needed for daily living: no In the past 12 mos, have been you worried that your food would run out before you had money to buy more?: never true In the past 12 mos, the food you bought just didn't last and you didn't have money to buy more?: never true Smoking Status: Never smoker Do you use any of these nicotine containing products: None Second hand tobacco smoke exposure: No How often do you have a drink containing alcohol: never How often do you have six or more drinks on one occasion: Never AUDIT-C Alcohol total score: 0 Non-prescribed substance use: denies use Caffeine: No How often does anyone, including family, friends and others, physically hurt you: never How often does anyone, including family, friends and others, insult or talk down to you: never How often does anyone, including family, friends and others, threaten you with harm: never How often does anyone, including family, friends and others, scream or curse at you: never service: No Exam Narrative: Exam Narrative: Const: Well-nourished, Well-developed, in moderate distress Eyes: PERRL, no conjunctival injection, and symmetrical lids HENT: Atraumatic external nose and ears. Moist mucous membranes. Neck: Symmetric, trachea midline, No thyromegaly. CVS: RRR, No murmurs or gallops. Peripheral pulses 2+ and equal in all extremities RESP: Unlabored respiratory effort. Clear to auscultation bilaterally. GI: Nontender/Nondistended, No rebound or guarding. Moderate left CVA tenderness and mild right CVA tenderness. Mild suprapubic and left lower quadrant tenderness. MSK:Extremities w/o deformity, Normal Active ROM Skin: Has a bandage over a wound to her left lower quadrant from thermal therapy. Has been seeing wound care for it and she states is healing well. Was last changed yesterday. Neuro: Normal Muscle tone, No focal neurological deficits. Psych: Awake, Alert, & Oriented x3. Appropriate mood and affect. Const: Vital Signs, click to edit/add: Vital Signs - 24 hr 03/08/25 23:02 03/09/25 00:07 03/09/25 00:08 Temperature 98.2 F Pulse Rate 105 H 104 H Respiratory Rate 16 Blood Pressure 128/80 Blood Pressure [Ri ght Upper Arm] 123/77 Pulse Oximetry 98 93 94 Oxygen Delivery Me thod Room Air Course Vital Signs Vital signs: Initial Vital Signs Temperature 98.2 F 03/08/25 23:02 Temperature Source Temporal Artery Scan 03/08/25 23:02 Respiratory Rate 16 03/08/25 23:02 Blood Pressure 123/77 03/08/25 23:02 Blood Pressure Mean 92 03/08/25 23:02 Blood Pressure Position Sitting 03/08/25 23:02 Pulse Oximetry 98 03/08/25 23:02 Oxygen Delivery Method Room Air 03/08/25 23:02 Vital Signs Temperature 98.2 F 03/08/25 23:02 Respiratory Rate 16 03/08/25 23:02 Blood Pressure 123/77 03/08/25 23:02 Pulse Oximetry 98 03/08/25 23:02 Oxygen Delivery Method Room Air 03/08/25 23:02 Temperature 98.2 F 03/08/25 23:02 Pulse Rate 94 03/09/25 02:15 Respiratory Rate 14 03/09/25 01:45 Blood Pressure 128/87 03/09/25 01:33 Pulse Oximetry 93 03/09/25 02:15 Oxygen Delivery Method Room Air 03/08/25 23:02 Medications Administered Medications: Discontinued Medications Generic Name Dose Route Start Last Admin Trade Name Freq PRN Reason Stop Dose Admin Morphine Sulfate 4 mg 03/08/25 23:29 03/08/25 23:49 Morphine 4 Mg/Ml Inj IVP 03/08/25 23:30 4 mg ONCE ONE Administration Ondansetron HCl 4 mg 03/08/25 23:29 03/09/25 00:47 Ondansetron 2 Mg/Ml Inj IVP 03/08/25 23:30 Not Given ONCE ONE Medical Decision Making MDM Narrative Medical decision making narrative: Patient is a 64-year-old female presenting to the emergency department for flank pain and inability to urinate. Considering she just had a CT scan yesterday and I was able to review it. I was able to see the images but there is not a report. I do not see any obvious abnormalities. I spoke to her about doing another CT scan but she would like to skip that considering she has had multiple scans this week. This seems reasonable concern he just had 1 and on my review the kidneys appeared well. Will do a bladder scan to see if she is retaining urine. Will also give her pain medication and nausea medication as needed. CMP, urinalysis, CBC, lipase, magnesium all ordered. Patient had episode of emesis when she took the morphine. She declined Zofran as nausea resolved after she vomited. CBC shows no concerning abnormalities. Bladder scan shows 250 mL of fluid. She is going to try and give a urine sample. I spoke to her by with expected more urine in someone states he has been drinking plenty of fluids and has not urinated in 2 days. She is agreeable to do a CT scan with IV contrast for kidney function is normal but will do it without contrast if it is abnormal. Her last CT scan with contrast was on 03/05/2025.. Creatine is normal. CT scan with IV contrast ordered. Postvoid bladder scan actually showed she had between 3 and 500 mL in your urine. Due to that I spoke to her about doing a Ambrose catheter. She is agreeable to this. She is not having any midline back pain or low back pain and I do not believe this is cauda equina. Will do a CT scan of the abdomen and pelvis to make sure there are no other abnormalities. Also states she does have oxycodone home and was afraid to take it because interactions with the ciprofloxacin. I told her she is safe to take it it just might increase the level of the oxycodone in her blood. She will try 2.5 mg 1st. patient signed out to the overnight provider pending CT results Lab Data Labs: Lab Results 03/08/25 03/09/25 Range/Units 23:48 00:21 WBC 7.17 (4.50-11.00) K/uL RBC 4.37 (4.00-5.20) m/uL Hgb 13.4 (12.0-16.0) gm/dL Hct 41.5 (33.0-51.0) % MCV 95 (80-100) fL MCH 31 (26-34) pg MCHC 32 (32-36) gm/dL RDW Coeff of Dorian 13.7 (11.5-15.5) % Plt Count 221 (140-440) K/uL Neut % (Auto) 78.4 H (42.0-72.0) % Lymph % (Auto) 11.6 L (20-44) % Parke % (Auto) 8.1 (0.0-11.0) % Eos % (Auto) 1.1 (0.0-7.0) % Baso % (Auto) 0.4 (0.0-3.0) % Neut # (Auto) 5.60 (1.7-7.0) K/uL Lymph # (Auto) 0.80 L (0.90-2.90) K/uL Parke # (Auto) 0.60 (0.00-0.90) K/UL Eos # (Auto) 0.08 (0.00-0.50) K/uL Baso # (Auto) 0.03 (0.00-0.30) K/uL Abs Immat Gran (auto) 0.03 (0.00-0.30) K/uL Imm/Tot Granulo (auto) 0.4 % Sodium 128 L (135-149) mmol/L Potassium 4.0 (3.6-5.1) mmol/L Chloride 91 L (96-114) mmol/L Carbon Dioxide 22 (20-32) mmol/L Anion Gap 15 (7-15) mEq/L BUN 14 (7-30) mg/dL Creatinine 0.7 (0.5-1.5) mg/dL Estimated Creat Clear 47.01 Estimated GFR 97 ml/min Glucose 106 (60-115) mg/dL Calcium 8.7 (8.4-10.6) mg/dL Magnesium 1.4 L (1.5-2.6) mg/dL Total Bilirubin 0.5 (0.1-1.5) mg/dL AST 25 (12-35) U/L ALT 13 (4-35) U/L Alkaline Phosphatase 67 (40-150) U/L Total Protein 5.7 L (6.0-8.3) g/dL Albumin 3.3 (3.3-5.0) g/dL Lipase 41 (23-300) U/L Urine Color Yellow (Yellow) Urine Appearance Clear (Clear) Urine pH 5.5 (5.0-8.5) Ur Specific [place] >= 1.030 (1.000-1.030) Urine Protein 2+ A (Negative) Urine Glucose (UA) Negative (Negative) Urine Ketones 3+ A (Negative) Urine Blood Negative (Negative) Urine Nitrite Negative (Negative) Urine Bilirubin 2+ A (Negative) Urine Urobilinogen 0.2 (0.2-1.0) Ur Leukocyte Esterase Negative (Negative) Urine RBC 0-2 (0-2) Urine WBC 0-2 (0-5) Ur Squamous Epith Cells None (None-Few) Urine Bacteria None (None) Discharge Plan Discharge Clinical Impression: Acute urinary retention, Bilateral flank pain Patient Disposition: Home, Self-Care Condition: Stable Instructions: Abdominal Pain (ED) Additional Instructions: Call your oncologist and primary care provider tomorrow for follow-up. Activity Level: No Restrictions Discharge Diet: Regular Prescriptions: No Action ciprofloxacin HCl 500 mg tablet 500 mg PO BID hydromorphone [Dilaudid] 2 mg tablet 2 mg PO Q6H PRN (Reason: pain) Qty: 10 0RF Follow Up/Referrals: Charla Carrington MD [Primary Care Provider, Obstetrics] Stand Alone Forms: [employer] Info Instructions
[2025-03-08] MEDS: MORPHINE 4 MG/ML INJ IVP (23:49)
[2025-03-08 23:51] LABS: Hematocrit* 41.5 % (33.0-51.0); Hemoglobin* 13.4 gm/dL (12.0-16.0); Immature Granulocytes Abs Auto 0.03 K/uL (0.00-0.30); Immature Granulocytes Pct Auto 0.4 %; Mean Corpuscular HGB Conc 32 gm/dL (32-36); Mean Corpuscular Hemoglobin 31 pg (26-34); Mean Corpuscular Volume 95 fL (80-100); RDW Coefficient of Variation % 13.7 % (11.5-15.5); Red Blood Count* 4.37 m/uL (4.00-5.20); White Blood Count* 7.17 K/uL (4.50-11.00)
[2025-03-08 23:53] LABS: Lymphocytes Absolute Auto 0.80 K/uL (0.90-2.90); Slide Review Reflex No
[2025-03-09] VITALS (15 sets, daily range): BP systolic 128; BP diastolic 80–87; PULSE 88–105; RESP 14; O2SAT 93–96
[2025-03-09 00:05] LABS: Albumin* 3.3 g/dL (3.3-5.0); Chloride* 91 mmol/L (96-114); Potassium* 4.0 mmol/L (3.6-5.1); Sodium* 128 mmol/L (135-149)
[2025-03-09 00:08] LABS: Alanine Aminotransferase* 13 U/L (4-35); Alkaline Phosphatase* 67 U/L (40-150); Anion Gap 15 mEq/L (7-15); Aspartate Amino Transferase* 25 U/L (12-35); Bilirubin Total* 0.5 mg/dL (0.1-1.5); Blood Urea Nitrogen* 14 mg/dL (7-30); Calcium* 8.7 mg/dL (8.4-10.6); Carbon Dioxide* 22 mmol/L (20-32); Creatinine* 0.7 mg/dL (0.5-1.5); Est. Creatinine Clearance* 47.01; Estimated Glomerular Filt Rate 97 ml/min; Glucose* 106 mg/dL (60-115); Total Protein* 5.7 g/dL (6.0-8.3)
--- NOTE | 2025-03-09 00:24 | CRLHL7_ITS ---
For Patients: As a result of the Century Cures Act, medical imaging exams and procedure reports are released immediately into your electronic medical record. You may view this report before your referring provider. If you have questions, please contact your health care provider. INDICATION: Bilateral flank pain, metastatic colon cancer, ascites. TECHNIQUE: CT abdomen and pelvis acquired with 78 cc of Isovue 370 IV contrast. COMPARISON: CT abdomen and pelvis 09/10/2023. FINDINGS: Lower chest: Multiple new masses within the lung bases, measuring up to 2.3 cm. Liver: Multiple new masses throughout the liver, the largest measuring 7 cm within the posterior right hepatic lobe. Gallbladder and bile ducts: Hydropic gallbladder without mural thickening. No biliary ductal dilatation. Pancreas: Unremarkable. No mass or inflammation. Spleen: Scalloping of the splenic margin, likely secondary to metastases. Adrenal glands: Unremarkable. No nodules. Kidneys: Unremarkable. No suspicious masses, stones, or hydronephrosis. GI tract: Colonic diverticulosis. No definite colonic mass lesion visualized. Prior appendectomy. No bowel obstruction. Vasculature: Abdominal aorta is normal in caliber. Mesenteric arteries are patent. Lymph nodes: No lymphadenopathy. Peritoneum/Abdominal Wall: Extensive peritoneal studding with metastatic lesions, including 1 at the umbilicus there is a 3.9 cm mass within the left rectus abdominis musculature. Moderate to large volume ascites. No free air. Pelvis: Unremarkable. Bones: Unremarkable for age. IMPRESSION: 1. Extensive progression of the patient`s disease compared to 09/10/2023 with new extensive hepatic, peritoneal, and pulmonary metastases. 2. Moderate to large volume ascites. Please note that all CT scans at this facility use dose modulation, iterative reconstruction, and/or weight-based dosing when appropriate to reduce radiation dose to as low as reasonably achievable. Dictated by Ronnell Del Angel MD @ 03/09/2025 2:38:26 AM (Electronically Signed)
[2025-03-09 00:30] LABS: Appearance Urine Clear (Clear)
--- NOTE | 2025-03-09 01:04 | ED.NURSE ---
Pt cath'd for 100cc of urine.
== END 2025-03-09 02:47 | disposition home or self-care (01) ==
PROVIDERS: Emergency Provider Student in an Organized Health Care Education/Training Program; PCP Family Medicine
DX: R33.9 Retention of urine, unspecified (principal); R10.A3 Flank pain, bilateral; C18.9 Malignant neoplasm of colon, unspecified; Z79.899 Other long term (current) drug therapy
CPT/HCPCS: 36415; 74177; 80053; 81001; 83690; 83735; 85025; 96374; 96375; 99284; 99285; J2270; Q9967

== ENCOUNTER 2025-03-09 14:44 | Emergency (ER) | payer BC, SELFPAY ==
--- OUTSIDE RECORDS SUMMARY | 2025-01-25 07:00 | XMS_ITS | Encounter Summary ---
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 [address] [place] [address] Phone: tel: fax: Department of Oncology in [place], [place] [address] [place] [address] Phone: tel: Referral ID Status Reason Start Date Expiration Date Visits Re quested Visits Authorized [id number] Closed 09/06/2024 09/06/2025 99 99 Encounter Details Date Type Department Care Team (Late st Contact Info) Description 01/25/2025 8:00 AM CDT Lab Department of Oncology in [place], [place] [address] [place] [phone] Kadeem Marshall P.A.-C., M.S. [address] [place] [address] Malignant Neoplasm Of Cecum (HCC) (Primary Dx); Secondary Malignant Neoplasm Peritoneum (HCC) Social History Tobacco Use Types Packs/Day Years Used Date Smoking Tobacco: Never Passive Smoke Exposure: Never Smokeless Tobacco: Never Alcohol Use Standard Drinks/Week Comments Not Currently 0 (1 standard drink = 0.6 oz pur e alcohol) [facility] Utilities Answer Date Recorded In the past 12 months has e [employer], gas, oil, or water [employer] threatened to shut off services in your [...] your living situation today? I have a [facility] place to live 2024 Education Answer [...] Upcoming Encounters Date Type Department Care Team (Latest Contact Info) Description 03/12/2025 11:30 AM TAX CLERK Appointment Department of Gastroenterology in [address] [phone] Marquise Gill M.D. [address] [place] [phone] Kala Woo APRN, C.N.P., D.N.P., M.S.N. [address] [place] [phone] Discharge Disposition: Home or Self Care 03/12/2025 3:30 PM TAX CLERK Appointment Department of Radiation Oncology in [address] [phone] Faith Ellis M.D. [address] [place] [address] 03/13/2025 3:45 PM TAX CLERK Appointment Department of Radiation Oncology in [address] [phone] Faith Ellis M.D. 200 [place] [phone] 03/14/2025 3:30 PM TAX CLERK Appointment Department of Radiation Oncology in [address] [phone] Faith Ellis M.D. [address] [place] [phone] 03/14/2025 3:45 PM TAX CLERK Appointment Department of Radiation Oncology in [place], [place] [address] [place] [phone] Sandro Guerrero M.D. [address] [place] [address] 03/15/2025 8:30 AM TAX CLERK Lab Department of Laboratory Medicine and Pathology, [facility] in [place], [place] [address] [place] [phone] Kadeem Marshall P.A.-C., M.S. [address] [place] [phone] 03/15/2025 9:40 AM TAX CLERK Education Department of Oncology in [place], [place] [address] [place] [phone] Kadeem Marshall P.A.-C., M.S. [address] [place] [phone] 03/15/2025 10:30 AM TAX CLERK Infusion Department of Oncology in [address] [phone] Kadeem Marshall P.A.-C., M.S. [address] [place] [phone] 03/15/2025 2:25 PM TAX CLERK Appointment Department of Cardiovascular Diseases in [address] [phone] Kadeem Marshall P.A.-C., M.S. [address] [place] [phone] Discharge Disposition: Home or Self Care 03/15/2025 3:30 PM TAX CLERK Appointment Department of Radiation Oncology in [place], [place] [address] [place] [phone] Faith Ellis M.D. [address] [place] [phone] 03/16/2025 3:30 PM TAX CLERK Appointment Department of Radiation Oncology in [place], [place] [address] [place] [phone] Faith Ellis M.D. [address] [place] [phone] 04/05/2025 8:30 AM TAX CLERK Lab Department of Oncology in [place], [place] [address] [place] [address] Kadeem Marshall P.A.-C., M.S. [address] [place] [phone] 04/05/2025 10:40 AM TAX CLERK Office Visit Department of Oncology in [place], [place] [address] [place] [phone] Kadeem Marshall P.A.-C., M.S. [address] [place] [phone] 04/05/2025 1:00 PM TAX CLERK Infusion Department of Oncology in [place], [place] [address] [place] [phone] Kadeem Marshall P.A.-C., M.S. [address] [place] [phone] 04/06/2025 10:00 AM TAX CLERK Comprehensive Visit Department of Palliative Care in [place], [place] [address] [place] [phone] Ana Rosa Hurtado APRN, C.NAlpeshPAlpesh, D.N.P. [address] [place] [phone] 04/30/2025 7:15 AM TAX CLERK Lab Department of Oncology in [address] [phone] Kadeem Marshall P.A.-C., M.S. [address] [place] [phone] 04/30/2025 9:20 AM TAX CLERK Office Visit Department of Oncology in [address] [phone] Kadeem Marshall P.A.-C., M.S. [address] [place] [phone] 04/30/2025 2:30 PM TAX CLERK Infusion Department of Oncology in [address] [phone] Kadeem Marshall P.A.-C., M.S. [address] [place] [phone] 05/21/2025 11:00 AM TAX CLERK Lab Department of Oncology in [address] [phone] Kadeem Marshall P.A.-C., M.S. [address] [place] [phone] 05/21/2025 1:20 PM TAX CLERK Office Visit Department of Oncology in [address] [phone] Kadeem Marshall P.A.-C., M.S. [address] [place] [phone] 05/21/2025 2:00 PM TAX CLERK Infusion Department of Oncology in [place], [place] [address] [place] [address] Kadeem Marshall P.A.-C., M.S. [address] [place] [address] documented as of this encounter Procedures Procedure [...] CDT 01/25/2025 8:44 AM CDT us Kadeem NievesA.-C., MAlpeshS. LAB BLOOD ADD-ON Fi nal Result [facility] [address] [place] [address], [facility] [address] [place] [address] * (ABNORMAL) Comprehensive Metabolic Panel (01/25/2025 8:38 AM CDT) [facility] Potassium, S 4.7 3.6 - 5.2 mmol/L [...] M.S. LAB BLOOD ADD-ON Fi nal Result [facility] [address] [place] [address], [facility] [address] [place] [address] * (ABNORMAL) CBC with Differential, Blood (01/25/2025 [...] ADD-ON Fi nal Result Performing Organization Address City/[facility]/ZIP Co de Phone Number [facility] [address] [place] [address] * Magnesium (01/25/2025 8:38 AM CDT) Pathologist [facility] Magnesium, S 1.9 1.7 - 2.3 mg/dL 01/25/2025 9:40 AM CDT DTL Blood (Blood, Venous) 01/25/2025 8:38 AM CDT 01/25/2025 8:44 AM CDT us Kadeem Marshall P.A.-C., M.S. LAB BLOOD ADD-ON Fi nal Result Performing Organization Address City/[facility]/ZIP Co de Phone Number [facility] [address] [place] [address] * S-TSH (Thyroid-Stimulating Hormone - Sensitive) (01/25/2025 8:38 AM CDT) TSH, Sensitive 2.6 0.3 - 4.2 mIU/L 01/25/2025 9:40 AM CDT DTL Blood (Blood, Venous) 01/25/2025 8:38 AM CDT 01/25/2025 8:44 AM CDT us Kadeem Marshall P.A.-C., M.S. LAB BLOOD ADD-ON Fi nal Result Performing Organization Address [facility] de Phone Number [facility] [address] [place] [address], [facility] DTL [facility] [address] [place] [address] * Zinc (01/25/2025 8:38 AM CDT) [facility] Signature Zinc, S 63 60 - 106 mcg/dL 01/26/2025 10:01 AM CDT [facility] Comment: ----ADDITIONAL INFORMATION---- This test was developed and its performance characteristics determined by [facility] in a manner consistent with CLIA requirements. This test has not been cleared or approved by the U.S. Food and Drug Administration. Blood (Blood, Venous) 01/25/2025 8:38 AM CDT 01/25/2025 11:10 AM CDT us Kadeem Marshall P.A.-C., M.S. LAB BLOOD NON ADD-O N Final Result Performing Organization Address City/[facility] Co de Phone Number [facility] [address] [place] [address] [facility] [address] [place] [address] 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
--- OUTSIDE RECORDS SUMMARY | 2025-01-25 10:00 | XMS_ITS | Encounter Summary ---
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 [address] [place] [address] Phone: tel: fax: Department of Oncology in [place], [place] [address] [place] [address] Phone: tel: Referral ID Status Reason Start Date Expiration Date Visits Re quested Visits Authorized [id number] Closed 09/06/2024 09/06/2025 99 99 Encounter Details Date Type Department Care Team (Late st Contact Info) Description 01/25/2025 11:00 AM CDT Office Visit Department of Oncology in [place], [place] [address] [place] [phone] Shahana Castillo M.D. [address] [place] [address] Malignant Neoplasm Of Cecum (HCC) (Primary Dx); Secondary Malignant Neoplasm Peritoneum (HCC); Secondary Malignant Neoplasm Liver (HCC) Social History Tobacco Use Types Packs/Day Years Used Date Smoking Tobacco: Never Passive Smoke Exposure: Never Smokeless Tobacco: Never Alcohol Use Standard Drinks/Week Comments Not Currently 0 (1 standard drink = 0.6 oz pur e alcohol) [facility] Utilities Answer Date Recorded In the past 12 months has e [employer], gas, oil, or water [employer] threatened to shut off services in your [...] your living situation today? I have a [facility] place to live 2024 Education Answer [...] cancers. Patient is status post remote . [place] pathology review Colon, cecum, mass, biopsy ([id number]; 07/03/2022): Invasive moderately- adenocarcinoma, pMMR. 07/30/2022 Surgery and Procedures ROBOTIC-ASSISTED COLECTOMY RIGHT WITH ANASTOMOSIS. Histologic Type: Adenocarcinoma Histologic Grade: G2 pT Category: pT3 pN Category: pN2a 07/30/2022 Genetic Testing and Tumor Genotyping 07/30/22 [place] CRC Panel CINDY/PORSHA wt NAIF 10/21/2022 Clinical [...] fully negative panel); [facility]Next- Cancer panel through [facility]. 2024 Surgery and Procedures percutaneous microwave [...] fully negative panel); [facility]Next- Cancer panel through [facility]. 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 She also cares for her 90-year-old mother [...] is not jaundiced. Findings: Lesion present. Comments: [place], indurated, nontender skin lesion (approx 1 cm [...] (Latest Contact Info) Description 03/12/2025 11:30 AM REGULATOR INSPECTOR Appointment Department of Gastroenterology in [address] [phone] Marquise Gill M.D. [address] [place] [phone] Kala Woo APRN, C.N.P., D.N.P., M.S.N. [address] [place] [phone] Discharge Disposition: Home or Self Care 03/12/2025 3:30 PM REGULATOR INSPECTOR Appointment Department of Radiation Oncology in [address] [phone] Faith Ellis M.D. [address] [place] [address] 03/13/2025 3:45 PM REGULATOR INSPECTOR Appointment Department of Radiation Oncology in [address] [phone] Faith Ellis M.D. [address] [place] [phone] 03/14/2025 3:30 PM REGULATOR INSPECTOR Appointment Department of Radiation Oncology in [address] [phone] Faith Ellis M.D. [address] [place] [phone] 03/14/2025 3:45 PM REGULATOR INSPECTOR Appointment Department of Radiation Oncology in [address] [place] [phone] Sandro Guerrero M.D. [address] [place] [phone] 03/15/2025 8:30 AM REGULATOR INSPECTOR Lab Department of Laboratory Medicine and Pathology, [facility] in [place], [place] [address] [place] [phone] Kadeem Marshall P.A.-C., M.S. [address] [place] [phone] 03/15/2025 9:40 AM REGULATOR INSPECTOR Education Department of Oncology in [place], [place] [address] [place] [phone] Kadeem Marshall P.A.-C., M.S. [address] [place] [phone] 03/15/2025 10:30 AM REGULATOR INSPECTOR Infusion Department of Oncology in [place], [place] [address] [place] [phone] Kadeem Marshall P.A.-C., M.S. [address] [place] [phone] 03/15/2025 2:25 PM REGULATOR INSPECTOR Appointment Department of Cardiovascular Diseases in [address] [phone] Kadeem Marshall P.A.-C., M.S. [address] [place] [phone] Discharge Disposition: Home or Self Care 03/15/2025 3:30 PM REGULATOR INSPECTOR Appointment Department of Radiation Oncology in [address] [place] [phone] Faith Ellis M.D. [address] [place] [phone] 03/16/2025 3:30 PM REGULATOR INSPECTOR Appointment Department of Radiation Oncology in [address] [place] [phone] Faith Ellis M.D. [address] [place] [phone] 04/05/2025 8:30 AM REGULATOR INSPECTOR Lab Department of Oncology in [place], [place] [address] [place] [phone] Kadeem Marshall P.A.-C., M.S. [address] [place] [phone] 04/05/2025 10:40 AM REGULATOR INSPECTOR Office Visit Department of Oncology in [place], [place] [address] [place] [phone] Kadeem Marshall P.A.-C., M.S. [address] [place] [phone] 04/05/2025 1:00 PM REGULATOR INSPECTOR Infusion Department of Oncology in [place], [place] [address] [place] [phone] Kadeem Marshall P.A.-C., M.S. [address] [place] [phone] 04/06/2025 10:00 AM REGULATOR INSPECTOR Comprehensive Visit Department of Palliative Care in [place], [place] [address] [place] [phone] Ana Rosa Hurtado APRN, C.N.P., D.N.P. [address] [place] [phone] 04/30/2025 7:15 AM REGULATOR INSPECTOR Lab Department of Oncology in [place], [place] [address] [place] [phone] Kadeem Marshall P.A.-C., M.S. [address] [place] [phone] 04/30/2025 9:20 AM REGULATOR INSPECTOR Office Visit Department of Oncology in [place], [place] [address] [place] [phone] Kadeem Marshall P.A.-C., M.S. [address] [place] [phone] 04/30/2025 2:30 PM REGULATOR INSPECTOR Infusion Department of Oncology in [address] [phone] Kadeem Marshall P.A.-C., M.S. [address] [place] [phone] 05/21/2025 11:00 AM REGULATOR INSPECTOR Lab Department of Oncology in [address] [phone] Kadeem Marshall P.A.-C., M.S. [address] [place] [phone] 05/21/2025 1:20 PM REGULATOR INSPECTOR Office Visit Department of Oncology in [place], [place] [address] [place] [phone] Kadeem Marshall P.A.-C., M.S. [address] [place] [phone] 05/21/2025 2:00 PM REGULATOR INSPECTOR Infusion Department of Oncology in [place], [place] [address] [place] [phone] Kadeem Marshall P.A.-C., M.S. 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
--- OUTSIDE RECORDS SUMMARY | 2025-01-25 12:00 | XMS_ITS | Encounter Summary ---
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 [address] [place] [address] Phone: tel: fax: Department of Oncology in [place], [place] [address] [place] [address] Phone: tel: Referral ID Status Reason Start Date Expiration Date Visits Re quested Visits Authorized [id number] Closed 09/06/2024 09/06/2025 99 99 Encounter Details Date Type Department Care Team (Late st Contact Info) Description 01/25/2025 1:00 PM CDT Infusion Department of Oncology in [place], [place] [address] [place] [address] Kadeem Marshall P.A.-C., M.S. [address] [place] [phone] Malignant Neoplasm Of Cecum (HCC) (Primary Dx); Secondary Malignant Neoplasm Peritoneum (HCC) Social History Tobacco Use Types Packs/Day Years Used Date Smoking Tobacco: Never Passive Smoke Exposure: Never Smokeless Tobacco: Never Alcohol Use Standard Drinks/Week Comments Not Currently 0 (1 standard drink = 0.6 oz pur e alcohol) [facility] Utilities Answer Date Recorded In the past 12 months has e [employer], gas, oil, or water [email or web address] threatened to shut off services in your [...] your living situation today? I have a [facility] place to live 2024 Education [...] (Latest Contact Info) Description 03/12/2025 11:30 AM ARCHITECT IN TRAINING Appointment Department of Gastroenterology in [place], [place] [address] [place] [phone] Marquise Gill M.D. [address] [place] [phone] Kala Woo APRN, C.N.P., D.N.P., M.S.N. [address] [place] [phone] Discharge Disposition: Home or Self Care 03/12/2025 3:30 PM ARCHITECT IN TRAINING Appointment Department of Radiation Oncology in [place], [place] [address] [place] [phone] Faith Ellis M.D. [address] [place] [address] 03/13/2025 3:45 PM ARCHITECT IN TRAINING Appointment Department of Radiation Oncology in [place], [place] [address] [place] [address] Faith Ellis M.D. [address] [place] [phone] 03/14/2025 3:30 PM ARCHITECT IN TRAINING Appointment Department of Radiation Oncology in [place], [place] [address] [place] [address] Faith Ellis M.D. [address] [place] [phone] 03/14/2025 3:45 PM ARCHITECT IN TRAINING Appointment Department of Radiation Oncology in [place], [place] [address] [place] [phone] Sandro Guerrero M.D. [address] [place] [address] 03/15/2025 8:30 AM ARCHITECT IN TRAINING Lab Department of Laboratory Medicine and Pathology, [facility], in [place], [place] [address] [place] [address] Kadeem Marshall P.A.-C., M.S. [address] [place] [phone] 03/15/2025 9:40 AM ARCHITECT IN TRAINING Education Department of Oncology in [place], [place] [address] [place] [phone] Kadeem Marshall P.A.-C., M.S. [address] [place] [phone] 03/15/2025 10:30 AM ARCHITECT IN TRAINING Infusion Department of Oncology in [place], [place] [address] [place] [phone] Kadeem Marshall P.A.-C., M.S. [address] [place] [phone] 03/15/2025 2:25 PM ARCHITECT IN TRAINING Appointment Department of Cardiovascular Diseases in [place], [place] [address] [place] [phone] Kadeem Marshall P.A.-C., M.S. [address] [place] [phone] Discharge Disposition: Home or Self Care 03/15/2025 3:30 PM ARCHITECT IN TRAINING Appointment Department of Radiation Oncology in [place], [place] [address] [place] [phone] Faith Ellis M.D. [address] [place] [phone] 03/16/2025 3:30 PM ARCHITECT IN TRAINING Appointment Department of Radiation Oncology in [address] [phone] Faith Ellis M.D. [address] [place] [phone] 04/05/2025 8:30 AM ARCHITECT IN TRAINING Lab Department of Oncology in [place], [place] [address] [place] [phone] Kadeem Marshall P.A.-C., M.S. [address] [place] [phone] 04/05/2025 10:40 AM ARCHITECT IN TRAINING Office Visit Department of Oncology in [place], [place] [address] [place] [phone] Kadeem Marshall P.A.-C., M.S. [address] [place] [phone] 04/05/2025 1:00 PM ARCHITECT IN TRAINING Infusion Department of Oncology in [place], [place] [address] [place] [phone] Kadeem Marshall P.A.-C., M.S. [address] [place] [phone] 04/06/2025 10:00 AM ARCHITECT IN TRAINING Comprehensive Visit Department of Palliative Care in [place], [place] [address] [place] [phone] Ana Rosa Hurtado APRN, C.N.P., D.N.P. [address] [place] [phone] 04/30/2025 7:15 AM ARCHITECT IN TRAINING Lab Department of Oncology in [place], [place] [address] [place] [phone] Kadeem Marshall P.A.-C., M.S. [address] [place] [phone] 04/30/2025 9:20 AM ARCHITECT IN TRAINING Office Visit Department of Oncology in [address] [phone] Kadeem Marshall P.A.-C., M.S. [address] [place] [phone] 04/30/2025 2:30 PM ARCHITECT IN TRAINING Infusion Department of Oncology in [address] [phone] Kadeem Marshall P.A.-C., M.S. [address] [place] [phone] 05/21/2025 11:00 AM ARCHITECT IN TRAINING Lab Department of Oncology in [address] [place] [address] Kadeem Marshall P.A.-C., M.S. [address] [place] [phone] 05/21/2025 1:20 PM ARCHITECT IN TRAINING Office Visit Department of Oncology in [place], [place] [address] [place] [phone] Kadeem Marshall P.A.-C., M.S. [address] [place] [phone] 05/21/2025 2:00 PM ARCHITECT IN TRAINING Infusion Department of Oncology in [place], [place] [address] [place] [phone] Kadeem Marshall P.A.-C., M.S. [address] [place] [phone] Scheduled Orders Name Type Priority Associated Diagnoses [...] mg (Ativan) 0.5 mg, oral, Once, On Wed01/25/25 at 1430, For 1 dose, At treatment [...] documented as of this encounter Care Teams Control Board Operator Relationship Specialty Start Date End Date Elsewhere, Pcp PCP - General Internal Medicine 03/08/24 documented as of this encounter
--- OUTSIDE RECORDS SUMMARY | 2025-01-27 13:45 | XMS_ITS | Encounter Summary ---
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 [address] [place] [address] Phone: tel: fax: Department of Oncology in [place], [place] [address] [place] [address] Phone: tel: Referral ID Status Reason Start Date Expiration Date Visits Re quested Visits Authorized [id number] Closed 09/06/2024 09/06/2025 99 99 Encounter Details Date Type Department Care Team (Late st Contact Info) Description 01/27/2025 2:45 PM CDT Infusion Department of Infusion Therapy in [place], [place] [address] [place] [phone] Kadeem Marshall P.A.-C., M.S. [address] [place] [address] Malignant Neoplasm Of Cecum (HCC) (Primary Dx); Secondary Malignant Neoplasm Peritoneum (HCC) Discharge Disposition: Home or Self Care Social History Tobacco Use Types Packs/Day Years Used Date Smoking Tobacco: Never Passive Smoke Exposure: Never Smokeless Tobacco: Never Alcohol Use Standard Drinks/Week Comments Not Currently 0 (1 standard drink = 0.6 oz pur e alcohol) [facility] Utilities Answer Date Recorded In the past 12 months has e electric, gas, oil, or water company threatened to shut off services in your [...] your living situation today? I have a [facility] place to live 2024 Education Answer [...] Sign Reading Time Taken Comments Blood Pressure 140/94 01/27/2025 2:24 PM CDT Pulse 81 01/27/2025 2:24 PM CDT Temperature 36.6 C (97.9 F) 01/27/2025 2:24 PM CDT Respiratory Rate 16 01/27/2025 2:24 PM CDT Oxygen Saturation - - Inhaled Oxygen Concentration - - Weight - - Height - - Body Mass Index - - documented in this encounter Plan of Treatment Upcoming Encounters Date Type Department Care Team (Latest Contact Info) Description 03/12/2025 11:30 AM PUTTY WORKER Appointment Department of Gastroenterology in [place], [place] [address] [place] [phone] Marquise Gill M.D. [address] [place] [phone] Kala Woo APRN, C.N.P., D.N.P., M.S.N. [address] [place] [address] Discharge Disposition: Home or Self Care 03/12/2025 3:30 PM PUTTY WORKER Appointment Department of Radiation Oncology in [place], [place] [address] [place] [phone] Faith Ellis M.D. [address] [place] [address] 03/13/2025 3:45 PM PUTTY WORKER Appointment Department of Radiation Oncology in [place], [place] [address] [place] [phone] Faith Ellis M.D. [address] [place] [phone] 03/14/2025 3:30 PM PUTTY WORKER Appointment Department of Radiation Oncology in [address] [phone] Faith Ellis M.D. [address] [place] [phone] 03/14/2025 3:45 PM PUTTY WORKER Appointment Department of Radiation Oncology in [address] [phone] Sandro Guerrero M.D. [address] [place] [phone] 03/15/2025 8:30 AM PUTTY WORKER Lab Department of Laboratory Medicine and Pathology, [facility], in [place], [place] [address] [place] [phone] Kadeem Marshall P.A.-C., M.S. [address] [place] [phone] 03/15/2025 9:40 AM PUTTY WORKER Education Department of Oncology in [address] [phone] Kadeem Marshall P.A.-C., M.S. [address] [place] [phone] 03/15/2025 10:30 AM PUTTY WORKER Infusion Department of Oncology in [place], [place] [address] [place] [phone] Kadeem Marshall P.A.-C., M.S. [address] [place] [phone] 03/15/2025 2:25 PM PUTTY WORKER Appointment Department of Cardiovascular Diseases in [place], [place] [address] [place] [phone] Kadeem Marshall P.A.-C., M.S. [address] [place] [phone] Discharge Disposition: Home or Self Care 03/15/2025 3:30 PM PUTTY WORKER Appointment Department of Radiation Oncology in [place], [place] [address] [place] [phone] Faith Ellis M.D. [address] [place] [phone] 03/16/2025 3:30 PM PUTTY WORKER Appointment Department of Radiation Oncology in [place], [place] [address] [place] [address] Faith Ellis M.D. [address] [place] [phone] 04/05/2025 8:30 AM PUTTY WORKER Lab Department of Oncology in [place], [place] [address] [place] [address] Kadeem Marshall P.A.-C., M.S. [address] [place] [phone] 04/05/2025 10:40 AM PUTTY WORKER Office Visit Department of Oncology in [place], [place] [address] [place] [phone] Kadeem Marshall P.A.-C., M.S. [address] [place] [phone] 04/05/2025 1:00 PM PUTTY WORKER Infusion Department of Oncology in [place], [place] [address] [place] [phone] Kadeem Marshall P.A.-C., M.S. [address] [place] [phone] 04/06/2025 10:00 AM PUTTY WORKER Comprehensive Visit Department of Palliative Care in [place], [place] [address] [place] [phone] Ana Rosa Hurtado APRN, C.N.P., D.N.P. [address] [place] [phone] 04/30/2025 7:15 AM PUTTY WORKER Lab Department of Oncology in [place], [place] [address] [place] [phone] Kadeem Marshall P.A.-C., M.S. [address] [place] [phone] 04/30/2025 9:20 AM PUTTY WORKER Office Visit Department of Oncology in [place], [place] [address] [place] [phone] Kadeem Marshall P.A.-C., M.S. [address] [place] [phone] 04/30/2025 2:30 PM PUTTY WORKER Infusion Department of Oncology in [place], [place] [address] [place] [phone] Kadeem Marshall P.A.-C., M.S. [address] [place] [phone] 05/21/2025 11:00 AM PUTTY WORKER Lab Department of Oncology in [place], [place] [address] [place] [phone] Kadeem Marshall P.A.-C., M.S. [address] [place] [phone] 05/21/2025 1:20 PM PUTTY WORKER Office Visit Department of Oncology in [place], [place] [address] [place] [phone] Kadeem Marshall P.A.-C., M.S. [address] [place] [phone] 05/21/2025 2:00 PM PUTTY WORKER Infusion Department of Oncology in [place], [place] [address] [place] [phone] Kadeem Marshall P.A.-C., M.S. 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 5 mL (500 units) of Heparin 100 units/mL to each port/lumen. When IVAD not accessed or infusing: When no infusion to maintain patency flush every 28 days following NaCL flush. 5 mL (500 units) of Heparin 100 units/mL to each port/lumen.Indications:Soni gnant Neoplasm Of Cecum (HCC) Given 01/27/2025 3:38 PM CDT 500 Units NaCl 0.9 % bolus 1,000 mL 1,000 mL, intravenous, at 1,000 mL/hr, Administer over 1 Hours, Once, On 01/27/25 at 1445, For 1 doseIndications:Malignant Neoplasm Of Cecum (HCC),Secondary Malignant Neoplasm Peritoneum (HCC) New Bag 01/27/2025 2:33 PM CDT 1,000 mL 1000 mL/hr sodium chloride 0.9 % injection 10-20 mL 10-20 mL, intra-catheter, As needed, line care, Starting on 01/27/25 at 1420, When IVAD accessed and infusing: Flush prior to and following infusion, between multiple consecutive infusions. 10 mL to each port/lumen.Indications:Soni gnant Neoplasm Of Cecum (HCC) Given 01/27/2025 3:38 PM CDT 10 mL Given 01/27/2025 2:33 PM CDT 10 mL documented in this encounter Additional Health Concerns Infection Onset Date Last Indicated Resolved Time Protective Environment 06/02/2024 06/02/2024 documented as of this encounter Care Teams Lab Technician Relationship Specialty Start Date End Date Elsewhere, Pcp PCP - General Internal Medicine 03/08/24 documented as of this encounter
--- OUTSIDE RECORDS SUMMARY | 2025-01-27 15:38 | XMS_ITS | Encounter Summary ---
Author Organization [facility] Address [address] [place] [address] Care Team Providers Care Machine Repair Person Name Role Phone Elsewhere, Pcp Primary Care Provider Unavailabl e Reason for Referral * Medication Prior Authorization - Closed Specialty Diagnoses / Procedures Referred By Edgardo t Referred To Contact Diagnoses Postherpetic Trigeminal Neuralgia Christopher Arteaga APRN, C.N.P., D.N.P. [address] [place] [phone] Phone: tel: fax: Referral ID Status Reason Start Date Expiration Date Visits Re quested Visits Authorized [id number] Closed 1 1 Reason for Visit * Reason Comments Headache Encounter Details Date Type Department Care Team (Late st Contact Info) Description 01/27/2025 4:38 PM CDT - 01/27/2025 6:30 PM CDT [facility] [address] [place] [phone] Christopher Arteaga APRN, C.N.P., D.N.P. [address] [place] [phone] Postherpetic Trigeminal Neuralgia (Primary Dx) Discharge Disposition: Home or Self Care Social History Tobacco Use Types Packs/Day Years Used Date Smoking Tobacco: Never Passive Smoke Exposure: Never Smokeless Tobacco: Never Alcohol Use Standard Drinks/Week Comments Not Currently 0 (1 standard drink = 0.6 oz pur e alcohol) [facility] Utilities Answer Date Recorded In the past 12 months has e [employer], gas, oil, or water [employer] threatened to shut off services in your [...] your living situation today? I have a [facility] [employer] place to live 2024 Education Answer Date [...] Sign Reading Time Taken Comments Blood Pressure 151/81 01/27/2025 6:00 PM CDT Pulse 78 01/27/2025 6:00 PM CDT Temperature 36.4 C (97.5 F) 01/27/2025 4:43 PM CDT Respiratory Rate 16 01/27/2025 4:43 PM CDT Oxygen Saturation 97% 01/27/2025 6:00 PM CDT Inhaled Oxygen Concentration - - Weight 68.9 kg (151 lb 14.4 oz) 01/27/2025 4:44 PM CDT Height - - Body Mass Index 27.6 01/25/2025 10:57 AM CDT documented in this encounter Discharge Instructions * Discharge Instructions* Christopher Arteaga APRN, C.N.P., D.N.P. - 01/27/2025 6:04 PM CDT Medications as directed. Two prescriptions will be at the [facility] in [place]. 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 Start the rest of the medications tomorrow. Make sure you finish the valacyclovir. If symptoms get worse, or if he would develop any lesions near the eye or develop eye pain return to the emergency department. Otherwise follow-up with primary care in a week. * Attachments The following attachments cannot be sent through Care Everywhere. * Trigeminal Neuralgia * Shingles (Romanian) documented in this encounter Medications at Time of Discharge acetaminophen (TYLENOL) 500 mg tablet Take 2 tablets (1,000 mg total) by mouth every 6 (six) hours as needed for pain. 06/03/2023 ascorbic acid, vitamin C, (ascorbic acid) 500 mg tablet Take 500 mg by mouth daily. cholecalciferol (VITAMIN D3) 50 mcg (2,000 Unit) capsule Take 50 mcg by mouth daily. LORazepam (Ativan) 0.5 mg tablet Take 1 tablet (0.5 mg total) by mouth 2 (two) times a day as needed (nausea). Post chemotherapy 20 tablet 11/30/2024 MAGNESIUM GLYCINATE ORAL Take by mouth at bedtime. Per Patient: 2 at bedtime oxyCODONE (ROXICODONE) 5 mg immediate release tabletIndication s:Acute Pain Take 1 tablet (5 mg total) by mouth every 4 (four) hours as needed for severe pain or score 7-10 of 10 (for breakthrough pain) Indication: Acute Pain. 10 tablet 09/16/2023 1:52 PM CDT 09/16/2023 turmeric (CURCUMIN MISC) Take by mouth 2 (two) times a day. Per Patient: 2 at breakfast 2 at dinner UNABLE TO FIND Take by mouth daily before morning meal. Per Patient: 2 with breakfast, Methylmaster, Methyl B12 UNABLE TO FIND Take by mouth daily before morning meal. Per Patient: Liver Sauce, 1 tsp upon waking UNABLE TO FIND Take by mouth at bedtime. Per Patient: [place]kerm[place]ia, 1 at bedtime UNABLE TO FIND Take by mouth 2 (two) times a day. Per Patient: Argentyl Silver, 2 tsp at breakfast and 2 tsp dinner UNABLE TO FIND Take by mouth. Per Patient: Artemesinin, 1 at breakfast and 1 at dinner, 4 days on 3 days off UNABLE TO FIND Per Patient: Liposomal Vitamin D, 2 pumps anytime during day cholecalciferol, vitD3,/vit K2 (VITAMIN D3-VITAMIN K2 ORAL) Take 1 capsule by mouth daily before morning meal. Per Patient: 10,000 with breakfast gabapentin (Neurontin) 100 mg capsule Take 1 capsule (100 mg total) by mouth 2 (two) times a day for 10 days, THEN 2 capsules (200 mg total) at bedtime for 10 days. 40 capsule 01/27/2025 loperamide (Imodium A-D) 2 mg capsule Take 1 capsule (2 mg total) by mouth 4 (four) times a day as needed for diarrhea. 60 capsule 11 11/05/2023 1:07 PM CDT 11/05/2023 loperamide (Imodium A-D) 2 mg capsule Take 1 capsule (2 mg total) by mouth 4 (four) times a day as needed for diarrhea. 90 capsule 2 10/05/2024 losartan (Cozaar) 25 mg tablet Take 1 tablet (25 mg total) by mouth daily. 30 tablet 2 09/22/2024 OLANZapine (ZyPREXA) 5 mg tablet Take 1 tablet (5 mg total) by mouth at bedtime. 30 tablet 10/18/2024 ondansetron (Zofran) 8 mg tabletIndication s:Malignant Neoplasm Of Cecum (HCC) Take 1 tablet (8 mg total) by mouth every 8 (eight) hours as needed for nausea or vomiting. 30 tablet 3 11/17/2024 12:36 PM CDT 11/17/2024 6 penciclovir (Denavir) 1 % cream Apply 1 Application topically every 2 (two) hours as needed (Cold Sores). 1.5 g 01/14/2024 prochlorperazine (Compazine) 10 mg tabletIndication s:Malignant Neoplasm Of Cecum (HCC) Take 1 tablet (10 mg total) by mouth every 6 (six) hours as needed for nausea or vomiting (unrelieved by ondansetron). 30 tablet 3 11/17/2024 12:36 PM CDT 11/17/2024 6 simethicone (MYLICON) 80 mg chewable tablet Chew 1 tablet (80 mg total) 4 (four) times a day as needed for flatulence (Bloating). 08/03/2022 oxyCODONE (Roxicodone) 5 mg immediate release tabletIndication s:Acute Pain Take 1 tablet (5 mg total) by mouth every 4 (four) hours as needed for pain for up to 3 days Indication: Acute Pain. 01/27/2025 5 valACYclovir (Valtrex) 1000 mg tabletIndication s:Postherpetic Trigeminal Neuralgia Take 1 tablet (1,000 mg total) by mouth 3 (three) times a day for 7 days. 21 tablet 01/27/2025 5 documented as of this encounter ED Notes * Christopher Arteaga APRN, C.N.P., D.N.P. - 01/27/2025 5:06 PM CDT Images from the original note were not included. The patient verbally consented to an audio recording of their visit to assist with the completion of documentation. CHIEF COMPLAINT/REASON FOR VISIT Headache HISTORY OF PRESENT ILLNESS History of Present Illness Hayley Unger is a 64 year old female with a history of cancer who presents with a new onset headache. She has been experiencing a sharp, excruciating headache that began yesterday. The pain originated at the occipital region, traveled to the right side, and is now localized in her right restorationism. The pain is described as 'pulsing' and has worsened over time. She has been using ice packs and a massager for relief. No fever, but there is associated neck pain. This morning, she experienced visual disturbances, describing 'two bright lights' in both eyes that lasted a few seconds. She also reports nausea, which she attributes to her chemotherapy treatment, and notes that eating sauerkraut helped calm her stomach. 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 She underwent surgery to remove part of her colon and lymph nodes, followed by a procedure involving a 'chemo bath' and subsequent fluid removal. She has also had liver ablation, which was complicated by a pneumothorax. She is currently undergoing chemotherapy and mentions experiencing right arm weakness, which she associates with her chemotherapy treatments. She is also using a treatment called Thermofield. During the review of symptoms, she denies chest pain, shortness of breath, and excessive sweating. She reports a burning sensation in a lesion on her chin that appeared this morning. REVIEW OF SYSTEMS Constitutional: Negative for chills, diaphoresis, fatigue and fever. HENT: Negative for sinus pressure and sore throat. Respiratory: Negative for cough, chest tightness and shortness of breath. Cardiovascular: Negative for chest pain. Gastrointestinal: Positive for nausea. Negative for abdominal pain, constipation, diarrhea and vomiting. Genitourinary: Negative for dysuria, frequency and urgency. Musculoskeletal: Positive for neck stiffness. Negative for arthralgias and myalgias. Skin: Positive for rash. Neurological: Positive for headaches. Negative for dizziness and weakness. Hematological: Negative for adenopathy. Does not bruise/bleed easily. All other systems reviewed and are negative. Allergies Reviewed in medical record Current Medications Reviewed in Medical Record. PAST HISTORY Medical Medical History[1] Problem List[2] Surgical Surgical History[3] Family Reviewed in Medical Record Social History Social History Tobacco Use Smoking status: Never Passive exposure: Never Smokeless tobacco: Never Substance Use Topics Alcohol use: Not Currently Social History Substance and Sexual Activity Drug Use Never OBJECTIVE Initial Vital Signs / Weights Initial Vitals [01/27/25 1643] Temperature 36.4 ??C Pulse Rate 75 Heart Rate Resp Rate 16 Blood Pressure 157/85 SpO2 98 % Pain Score 8 Wt Readings from Last 3 Encounters: 01/27/25 68.9 kg 01/25/25 68.5 kg 01/11/25 68.7 kg PHYSICAL EXAMINATION Physical Exam NEUROLOGICAL: Alert and oriented x3, pupils equal, round, and reactive to light, cranial nerves II-XII intact, no pronator drift in upper or lower extremities. SKIN: Vesicular lesion on right chin, small papular lesion with erythema at the restorationism. Lungs are clear, heart S1-S2 with no murmurs clicks. Otherwise appeared comfortable on the stretcher and vital signs are stable. DIAGNOSTICS Labs Labs Reviewed CBC WITH DIFFERENTIAL, B - Abnormal Result Value Hemoglobin 11.8 Hematocrit 35.4 (*) Erythrocytes 3.78 (*) MCV 93.7 RBC Distrib Width 13.6 Platelet Count 129 (*) Leukocytes 3.0 (*) Neutrophils 1.70 Lymphocytes 0.95 Monocytes 0.34 Eosinophils 0.04 Basophils <0.04 C-REACTIVE PROTEIN (CRP), S/P - Abnormal C-Reactive Protein (CRP), P 5.1 (*) BASIC METABOLIC PANEL, S/P - Abnormal Potassium, P 4.3 Sodium, P 140 Chloride, P 104 Bicarbonate, P 25 Anion Gap, P 11 BUN (Blood Urea Nitrogen), P 10 Creatinine 0.58 (*) Estimated GFR (eGFR) >90 Calcium, Total, P 9.1 Glucose, P [address] Head without IV Contrast Final Result No acute intracranial abnormality. MRI would be more sensitive for intracranial metastasis is clinically indicated. Procedures None See separate procedure note. ED COURSE ED Course as of 01/27/25 1815 Sat Jan 27, 2025 1655 I performed my initial evaluation of the patient. We discussed Emergency Department course including testing, treatment, and potential disposition based on findings. 1722 Leukocytes(!): 3.0 luekocytosis 1723 Platelet Count(!): 129 thrombocytopenia 1736 C-Reactive Protein (CRP), P(!): 5.1 Mild elevation, doubt temporal arteritis. [address] head IMPRESSION: No acute intracranial abnormality. MRI would be more sensitive for intracranial metastasis is clinically indicated. 1805 Head pain has improved with therapy. Will give valacyclovir and gabapentin for the night. Willadd oxycodone for severe pain 181 I discussed the plan for discharge with the patient, and patient/family is agreeable. I discussed with patient the utility, limitations, and findings of the exam/interventions/studies done during this visit as well as the list of differential diagnosis. Patient understands provisional nature of this diagnosis and need for follow up. We discussed the plan of care, including supportive cares. We also discussed symptoms to monitor and symptoms that should prompt them to return for re-evaluation including new or worsening symptoms. All questions and concerns addressed. Patient to be discharged by RN. Final Diagnoses: as of 01/27/251814 Postherpetic Trigeminal Neuralgia INTERVENTIONS Medications diphenhydrAMINE injection 25 mg (BenadryL) (25 mg intravenous Given 01/27/251714) ketorolac injection 15 mg (ToradoL) (15 mg intravenous Given 01/27/251715) LORazepam injection 1 mg (Ativan) (1 mg intravenous Given 01/27/251714) gabapentin capsule 100 mg (Neurontin) (100 mg oral Given 01/27/251804) valACYclovir tablet 1,000 mg (Valtrex) (1,000 mg oral Given 01/27/251804) MEDICAL DECISION MAKING Medical Decision Making A 64-year-old female with metastatic colon cancer on chemotherapy presented with a new, sharp, excruciating right-sided headache radiating from the occiput to the restorationism, associated with a vesicular lesion on the right chin and a small erythematous papule at the restorationism. She reported associated nausea, transient visual disturbances, and right-sided neck pain, but denied fever, chest pain, or shortness of breath. Neurological exam was non-focal, and cranial nerves II-XII were intact. Her past medical history is notable for metastatic colon cancer with prior surgical interventions and ongoing chemotherapy. Differential diagnosis includes, but is not limited to: - Occipital neuralgia secondary to herpes zoster: The clinical presentation of sharp, shooting painalong the occipital nerve distribution with a vesicular lesion is consistent with occipital neuralgia likely due to herpes zoster. - Brain metastasis: Given her history of metastatic colon cancer, new-onset headache raises concernfor possible brain metastasis, warranting neuroimaging to rule out this etiology. - Temporal arteritis (giant cell arteritis): Pulsating headache over the right restorationism raises concern for temporal arteritis, though it is considered less likely but must be ruled out due to the risk of vision loss if untreated. Occipital neuralgia secondary to herpes zoster - Administered Toradol, Benadryl, and Ativan for headache and nausea We will plan to treat with antivirals, gabapentin. Rule out brain metastasis and temporal arteritis - Order CT scan of the head, CBC, and CRP Course while in the emergency department. Patient's pain was treated with Benadryl, Ativan for nausea as well as Toradol. She did have reduction in her pain so was much more tolerable. I feel this isprobably herpetic trigeminal neuralgia. Since her white count is low I will treat this with the valacyclovir. She had severe diarrhea from acyclovir in the past. We will also start her on gabapentin as well as oxycodone for severe pain. White count was neutropenic and CRP was negative essentially ruling out temporal arteritis. CT was negative ruling out any intracranial mass/tumor, however MRIs more sensitive but that is not available at this institution. I instructed her to follow-up with primary care in 1 week for reassessment. Patient and/or caregiver was given red flag signs & symptoms that would require immediate followup or return to the ED. Assessment and Plan DIFFERENTIAL DIAGNOSES As above. PROBLEMS ADDRESSED THIS VISIT As above. Care is significantly affected by the following Social Determinants of Health: none. I reviewed the following external records: primary care records, prior outpatient labs, prior outpatient radiology tests and inpatient records. The following tests were considered but ultimately not performed: none. Escalation of care, including admission/observation, considered: none. DIAGNOSIS Final diagnoses: [B02.22] Postherpetic Trigeminal Neuralgia DISPOSITION Home or Self Care DISCHARGE/TRANSFER VITAL SIGNS Vitals: 01/27/25 1800 BP: 151/81 Pulse: 78 Resp: Temp: SpO2: 97% ED DISCHARGE MEDS ED Prescriptions Medication Sig Dispense Start Date End Date Auth. Provider valACYclovir (Valtrex) 1000 mg tablet Take 1 tablet (1,000 mg total) by mouth 3 (three) times a dayfor 7 days. 21 tablet 01/27/2025 02/03/2025 Christopher Arteaga APRN, C.N.P., D.N.P. gabapentin (Neurontin) 100 mg capsule Take 1 capsule (100 mg total) by mouth 2 (two) times a day for 10 days, THEN 2 capsules (200 mg total) at bedtime for 10 days. 40 capsule 01/27/2025 02/16/2025 Christopher Arteaga APRN, C.N.P., D.N.P. oxyCODONE (Roxicodone) 5 mg immediate release tablet Take 1 tablet (5 mg total) by mouth every 4 (four) hours as needed for pain for up to 3 days Indication: Acute Pain. -- 01/27/2025 01/30/2025 Christopher Arteaga APRN, C.N.P., D.N.P. Oxycodone was from [facility]. FOLLOW UP Contact Information for Follow-ups Elsewhere, Pcp Specialty: Internal Medicine, [employer]er, Pediatrics, Women's Health, Family Medicine Relationship: PCP - General Office Next Steps: Follow up in 1 week(s) Christopher Arteaga DNP, DALIA, LOAN ASSOCIATE-C, AGACNP-BC, ENP-C Emergency Medicine [1] Past Medical History: Diagnosis Date Adverse Reaction Anesthetic Personal History Major headache after, from dehydration Gastroesophageal Reflux Disease NOS 2018 Headache Unspecified After chemo Hypertension Essential Primary Liver Disease March 2024 Malignant Neoplasm Of Colon Adenocarcinoma (HCC) 06/2022 Neuropathy Peripheral Polyp Colon 2016 Sickness Motion Personal History [2] Patient Active Problem List Diagnosis Malignant Neoplasm Of Cecum (HCC) Hypertension Essential Primary Abnormal Stress Test Preanesthetic Medical Exam Polyp Colon Adenomatous Obesity Body Mass Index 30-39.9 Adult 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) Malignant Neoplasm Of Colon Adenocarcinoma (HCC) Abdominal Pain Secondary Malignant Neoplasm Liver (HCC) Dizziness Postprocedural Pneumothorax Lesion Liver Nodules Pulmonary Multiple [3] Past Surgical History: Procedure Laterality Date BLOCK - TRANSVERSUS ABDOMINIS PLANE (TAP) Bilateral 07/30/2022 Procedure: BLOCK - TRANSVERSUS ABDOMINIS PLANE; Surgeon: Marquise Meeks M.B., ChAlpeshB., M.P.H.; Location: [facility] BLOCK - TRANSVERSUS ABDOMINIS PLANE (TAP) 05/27/2023 Procedure: BLOCK - TRANSVERSUS ABDOMINIS PLANE; Surgeon: Michele Baldwin M.D.; Location: [facility] SECTION 1988 x2 COLECTOMY RIGHT WITH ANASTOMOSIS N/A 05/27/2023 Procedure: REDO RIGHT HEMICOLECTOMY WITH ANASTOMOSIS; Surgeon: Michele Baldwin M.D.; Location: [facility] COLON SURGERY 07/30/2022 CYSTOSCOPY INSERTION STENT URETER Bilateral 05/27/2023 Procedure: CYSTOSCOPY INSERTION STENT URETER; Surgeon: Manuela Bowman D.O.; Location: [facility] DEBULKING OF INTRA-ABDOMINAL TUMOR N/A 05/27/2023 Procedure: DEBULKING OF INTRA-ABDOMINAL TUMOR; Surgeon: Michele Baldwin M.D.; Location: [facility] DILATION AND CURETTAGE OF UTERUS HIPEC PROCEDURE N/A 05/27/2023 Procedure: HYPERTHERMIC INTRAPERITONEAL CHEMOTHERAPY PROCEDURE; Surgeon: Michele Baldwin M.D.; Location: [facility] LAPAROSCOPIC EXPLORATION - DIAGNOSTIC N/A 05/21/2023 Procedure: LAPAROSCOPIC EXPLORATION, DIAGNOSTIC; Surgeon: Michele Baldwin M.D.; Location: [facility] OMENTECTOMY N/A 05/27/2023 Procedure: OMENTECTOMY; Surgeon: Michele Baldwin M.D.; Location: [facility] OTHER SURGICAL HISTORY 05/27/2023 Cancer in [place] ROBOTIC-ASSISTED COLECTOMY RIGHT WITH ANASTOMOSIS N/A 07/30/2022 Procedure: ROBOTIC-ASSISTED COLECTOMY RIGHT WITH ANASTOMOSIS.; Surgeon: Marquise Meeks M.B., Ch.B., M.P.H.; Location: [facility] OR SALPINGECTOMY 2010 TOTAL HYSTERECTOMY 2010 Christopher Arteaga APRN, C.N.P., D.N.P. 01/27/251814 documented in this encounter Plan of Treatment Upcoming Encounters Date Type Department Care Team (Latest Contact Info) Description 03/12/2025 11:30 AM GROUP HOME COUNSELOR Appointment Department of Gastroenterology in [address] [phone] Marquise Gill M.D. [address] [place] [phone] Kala Woo APRN, C.N.P., D.N.P., M.S.N. [address] [place] [phone] Discharge Disposition: Home or Self Care 03/12/2025 3:30 PM GROUP HOME COUNSELOR Appointment Department of Radiation Oncology in [address] [phone] Faith Ellis M.D. [address] [place] [phone] 03/13/2025 3:45 PM GROUP HOME COUNSELOR Appointment Department of Radiation Oncology in [address] [phone] Faith Ellis M.D. [address] [place] [phone] 03/14/2025 3:30 PM GROUP HOME COUNSELOR Appointment Department of Radiation Oncology in [address] [phone] Faith Ellis M.D. [address] [place] [phone] 03/14/2025 3:45 PM GROUP HOME COUNSELOR Appointment Department of Radiation Oncology in [address] [phone] Sandro Guerrero M.D. [address] [place] [phone] 03/15/2025 8:30 AM GROUP HOME COUNSELOR Lab Department of Laboratory Medicine and Pathology, [facility], in [place], [place] [address] [place] [phone] Kadeem Marshall P.A.-C., M.S. [address] [place] [phone] 03/15/2025 9:40 AM GROUP HOME COUNSELOR Education Department of Oncology in [place], [place] [address] [place] [phone] Kadeem aMrshall P.A.-C., M.S. [address] [place] [phone] 03/15/2025 10:30 AM GROUP HOME COUNSELOR Infusion Department of Oncology in [place], [place] [address] [place] [phone] Kadeem Marshall P.A.-C., M.S. [address] [place] [phone] 03/15/2025 2:25 PM GROUP HOME COUNSELOR Appointment Department of Cardiovascular Diseases in [place], [place] [address] [place] [phone] Kadeem Marshall P.A.-C., M.S. [address] [place] [phone] Discharge Disposition: Home or Self Care 03/15/2025 3:30 PM GROUP HOME COUNSELOR Appointment Department of Radiation Oncology in [place], [place] [address] [place] [phone] Faith Ellis M.D. [address] [place] [phone] 03/16/2025 3:30 PM GROUP HOME COUNSELOR Appointment Department of Radiation Oncology in [place], [place] [address] [place] [phone] Faith Ellis M.D. [address] [place] [phone] 04/05/2025 8:30 AM GROUP HOME COUNSELOR Lab Department of Oncology in [place], [place] [address] [place] [phone] Kadeem Marshall P.A.-C., M.S. [address] [place] [phone] 04/05/2025 10:40 AM GROUP HOME COUNSELOR Office Visit Department of Oncology in [place], [place] [address] [place] [phone] Kadeem Marshall P.A.-C., M.S. [address] [place] [phone] 04/05/2025 1:00 PM GROUP HOME COUNSELOR Infusion Department of Oncology in [address] [phone] Kadeem Marshall P.A.-C., M.S. [address] [place] [phone] 04/06/2025 10:00 AM GROUP HOME COUNSELOR Comprehensive Visit Department of Palliative Care in [place], [place] [address] [place] [phone] Ana Rosa Hurtado APRN, C.N.P., D.N.P. [address] [place] [phone] 04/30/2025 7:15 AM GROUP HOME COUNSELOR Lab Department of Oncology in [address] [phone] Kadeem Marshall P.A.-C., M.S. [address] [place] [phone] 04/30/2025 9:20 AM GROUP HOME COUNSELOR Office Visit Department of Oncology in [address] [phone] Kadeem Marshall P.A.-C., M.S. [address] [place] [phone] 04/30/2025 2:30 PM GROUP HOME COUNSELOR Infusion Department of Oncology in [address] [phone] Kadeem Marshall P.A.-C., M.S. [address] [place] [phone] 05/21/2025 11:00 AM GROUP HOME COUNSELOR Lab Department of Oncology in [address] [phone] Kadeem Marshall P.A.-C., M.S. [address] [place] [phone] 05/21/2025 1:20 PM GROUP HOME COUNSELOR Office Visit Department of Oncology in [address] [phone] Kadeem Marshall P.A.-C., M.S. [address] [place] [phone] 05/21/2025 2:00 PM GROUP HOME COUNSELOR Infusion Department of Oncology in [address] [phone] Kadeem Marshall P.A.-C., M.S. [address] [place] [phone] documented as of this encounter Procedures Procedure Name Priority Date/Time Associated Diagnosis Comments CT HEAD WITHOUT IV CONTRAST RAD - Semiurgent (Fast; most ED patients; some inpatients) 01/27/2025 5:34 PM CDT CBC WITH DIFFERENTIAL, B STAT 01/27/2025 5:16 PM CDT C-REACTIVE PROTEIN (CRP), S/P STAT 01/27/2025 5:16 PM CDT BASIC METABOLIC PANEL, S/P STAT 01/27/2025 5:16 PM CDT documented in this encounter Results * CT Head without IV Contrast (01/27/2025 5:34 PM CDT) Anatomical Region Laterality Modality Head, Neuroradiology RST LOS , Neuroradiology ARZ LOS, Neuroradiology FLA LOS N/A Computed Tomography 01/27/2025 5:30 PM CDT Impressions 01/27/2025 5:54 PM CDT No acute intracranial abnormality. MRI would be more sensitive for intracranial metastasis is clinically indicated. Narrative 01/27/2025 5:54 PM CDT EXAM: CT HEAD WITHOUT IV CONTRAST COMPARISON: Brain MR 04/04/2024 FINDINGS: Negative for acute intracranial hemorrhage, mass effect, or evidence of acute large territorial infarct. Chronic parenchymal volume loss and small vessel ischemic changes. Moderate paranasal sinus mucosal thickening. No skull fracture. Procedure Note Stiven Sewell M.D. - 01/27/2025 EXAM: CT HEAD WITHOUT IV CONTRAST COMPARISON: Brain MR 04/04/2024 FINDINGS: Negative for acute intracranial hemorrhage, mass effect, orevidence of acute large territorial infarct. Chronic parenchymal volumeloss and small vessel ischemic changes. Moderate paranasal sinus mucosalthickening. No skull fracture. IMPRESSION: No acute intracranial abnormality. MRI would be more sensitive forintracranial metastasis is clinically indicated. Christopher Arteaga APRN, C.N.P., D.N.P. IMG CT PROCE ARCHIEES Final Result * (ABNORMAL) Basic Metabolic Panel (01/27/2025 5:16 PM CDT) Potassium, P 4.3 3.6 - 5.2 mmol/L 01/27/2025 5:36 PM CDT CNFL Sodium, P 140 135 - 145 mmol/L 01/27/2025 5:36 PM CDT CNFL Chloride, P 104 98 - 107 mmol/L 01/27/2025 5:36 PM CDT CNFL Bicarbonate, P 25 22 - 29 mmol/L 01/27/2025 5:36 PM CDT CNFL Anion Gap, P 11 7 - 15 01/27/2025 5:36 PM CDT CNFL BUN (Blood Urea Nitrogen), P 10 6 - 21 mg/dL 01/27/2025 5:36 PM CDT CNFL Creatinine 0.58(L) 0.59 - 1.04 mg/dL 01/27/2025 5:36 PM CDT CNFL Estimated GFR (eGFR) >90 >=60 mL/min/BSA 01/27/2025 5:36 PM CDT CNFL Comment: Estimated GFR calculated using the 2020 CKD_EPI creatinine equation. Calcium, Total, P 9.1 8.8 - 10.2 mg/dL 01/27/2025 5:36 PM CDT CNFL Glucose, P 95 70 - 140 mg/dL 01/27/2025 5:36 PM CDT CNFL Blood (Blood, Venous) 01/27/2025 5:16 PM CDT 01/27/2025 5:18 PM CDT us Christopher Arteaga APRN, C.N.P., D.N.P. LAB BLOOD AD D-ON Final Result [facility] [address] [place] [phone], [facility] in [address] [address] * (ABNORMAL) CRP (C-Reactive Protein) (01/27/2025 5:16 PM CDT) C-Reactive Protein (CRP), P 5.1(H) <5.0 mg/L 01/27/2025 5:36 PM CDT CNFL Blood (Blood, Venous) 01/27/2025 5:16 PM CDT 01/27/2025 5:18 PM CDT us Christopher Arteaga APRN, C.N.P., D.N.P. LAB BLOOD AD D-ON Final Result [facility] [address] [place] [phone], [facility] CNFL [facility] [place] [address] * (ABNORMAL) CBC with Differential, Blood (01/27/2025 5:16 PM CDT) Hemoglobin 11.8 11.6 - 15.0 g/dL 01/27/2025 5:21 PM CDT CNFL Hematocrit 35.4(L) 35.5 - 44.9 % 01/27/2025 5:21 PM CDT CNFL Erythrocytes 3.78(L) 3.92 - 5.13 x10(12)/L 01/27/2025 5:21 PM CDT CNFL MCV 93.7 78.2 - 97.9 fL 01/27/2025 5:21 PM CDT CNFL RBC Distrib Width 13.6 12.2 - 16.1 % 01/27/2025 5:21 PM CDT CNFL Platelet Count 129(L) 157 - 371 x10(9)/L 01/27/2025 5:21 PM CDT CNFL Leukocytes 3.0(L) 3.4 - 9.6 x10(9)/L 01/27/2025 5:21 PM CDT CNFL Neutrophils 1.70 1.56 - 6.45 x10(9)/L 01/27/2025 5:21 PM CDT CNFL Lymphocytes 0.95 0.95 - 3.07 x10(9)/L 01/27/2025 5:21 PM CDT CNFL Monocytes 0.34 0.26 - 0.81 x10(9)/L 01/27/2025 5:21 PM CDT CNFL Eosinophils 0.04 0.03 - 0.48 x10(9)/L 01/27/2025 5:21 PM CDT CNFL Basophils <0.04 0.01 - 0.08 x10(9)/L 01/27/2025 5:21 PM CDT CNFL Blood (Blood, Venous) 01/27/2025 5:16 PM CDT 01/27/2025 5:18 PM CDT us Christopher Arteaga APRN, C.N.P., D.N.P. LAB BLOOD AD D-ON Final Result [facility] [address] [place] [address], [facility] CNFL [facility] in [address] [address] documented in this encounter Visit Diagnoses Diagnosis Postherpetic Trigeminal Neuralgia- Primary documented in this encounter Administered Medications Inactive Administered Medications - up to 3 most recent administrations Medication Order MAR Action Action Date Dose Rate Site diphenhydrAMINE injection 25 mg (BenadryL) 25 mg, intravenous, Once, On 01/27/25 at 1706, For 1 dose Given 01/27/2025 5:15 PM CDT 25 mg gabapentin capsule 100 mg (Neurontin) 100 mg, oral, Once, On 01/27/25 at 1801, For 1 dose Given 01/27/2025 6:05 PM CDT 100 mg ketorolac injection 15 mg (ToradoL) 15 mg, intravenous, Once, On 01/27/25 at 1706, For 1 dose, Adult IV push rate: Over 15 seconds. Peds IV push rate: Over 1 minute. Doses > 15 mg IV/IM are discouraged due to lack of additional analgesic benefit. Given 01/27/2025 5:16 PM CDT 15 mg LORazepam injection 1 mg (Ativan) 1 mg, intravenous, Once, On 01/27/25 at 1706, For 1 dose, Shortage on injection, use oral when possible For intravenous use, dilute with equal volume of 0.9% NS Given 01/27/2025 5:15 PM CDT 1 mg valACYclovir tablet 1,000 mg (Valtrex) 1,000 mg, oral, Once, On 01/27/25 at 1801, For 1 dose, Drug Monitoring Program: Pharmacist to adjust medication dosing based on indication and drug clearance factors., Indications: Chickenpox/herpes zosterIndications:Chickenpox/her pes zoster Given 01/27/2025 6:05 PM CDT 1,000 mg documented in this encounter Active and Recently Administered Medications Times are shown in CDT. Scheduled Medication Order 01/25/2025 01/26/2025 01/27/2025 diphenhydrAMINE injection 25 mg (BenadryL) (COMPLETED) 25 mg, intravenous, Once, On 01/27/25 at 1706, For 1 dose 1714 (Given - Provid er: Nicolette Brody R.N.) gabapentin capsule 100 mg (Neurontin) (COMPLETED) 100 mg, oral, Once, On 01/27/25 at 1801, For 1 dose 1804 (Given - Provid er: Nicolette Brody, R.N.) ketorolac injection 15 mg (ToradoL) (COMPLETED) 15 mg, intravenous, Once, On 01/27/25 at 1706, For 1 dose, Adult IV push rate: Over 15 seconds. Peds IV push rate: Over 1 minute. Doses > 15 mg IV/IM are discouraged due to lack of additional analgesic benefit. 1715 (Given - Provid er: Nicolette Brody, R.N.) LORazepam injection 1 mg (Ativan) (COMPLETED) 1 mg, intravenous, Once, On 01/27/25 at 1706, For 1 dose, Shortage on injection, use oral when possible For intravenous use, dilute with equal volume of 0.9% NS 1714 (Given - Provid er: Nicolette Brody, R.N.) valACYclovir tablet 1,000 mg (Valtrex) (COMPLETED) 1,000 mg, oral, Once, On 01/27/25 at 1801, For 1 dose, Drug Monitoring Program: Pharmacist to adjust medication dosing based on indication and drug clearance factors., Indications: Chickenpox/herpes zoster 1804 (Given - Provid er: Nicolette Brody R.N.) documented in this encounter Additional Health Concerns Infection Onset Date Last Indicated Resolved Time Protective Environment 06/02/2024 06/02/2024 documented as of this encounter Care Teams Machine Repair Person Relationship Specialty Start Date End Date Elsewhere, Pcp PCP - General Internal Medicine 03/08/24 documented as of this encounter
--- OUTSIDE RECORDS SUMMARY | 2025-02-22 10:01 | XMS_ITS | Encounter Summary ---
Author Organization [facility] Address [address] [place] [address] Care Team Providers Care Blender/Braze Applicator Name Role Phone Elsewhere, Pcp Primary Care Provider Unavailabl e Reason for Referral * MRI/CAT/PET Scan (Routine) - Closed Specialty Diagnoses / Procedures Referred By Contac t Referred To Contact Radiology Diagnoses Secondary Malignant Neoplasm Liver (HCC) Procedures CT Abdomen Pelvis with IV Contrast Kadeem Marshall P.A.-C., M.S. [address] [place] [address] Phone: tel: fax: [facility] Region Referral ID Status Reason Start Date Expiration Date Visits Re quested Visits Authorized [id number] Closed 01/30/2025 05/02/2026 1 1 * MRI/CAT/PET Scan (Routine) - Closed Specialty Diagnoses / Procedures Referred By Contac t Referred To Contact Radiology Diagnoses Secondary Malignant Neoplasm Liver (HCC) Procedures CT Chest with IV Contrast Kadeem Marshall P.A.-C., M.S. [address] [place] [address] Phone: tel: fax: [facility] Region Referral ID Status Reason Start Date Expiration Date Visits Re quested Visits Authorized [id number] Closed 01/30/2025 05/02/2026 1 1 Reason for Visit * MRI/CAT/PET Scan (Routine) - Closed Specialty Diagnoses / Procedures Referred By Edgardo banks Referred To Contact Radiology Diagnoses Secondary Malignant Neoplasm Liver (HCC) Procedures CT Abdomen Pelvis with IV Contrast Kadeem Marshall P.A.-C., M.S. [address] [place] [address] Phone: tel: fax: [facility] Referral ID Status Reason Start Date Expiration Date Visits Re quested Visits Authorized [id number] Closed 01/30/2025 05/02/2026 1 1 Encounter Details Date Type Department Care Team (Latest Contact Info) Description 02/22/2025 11:01 AM CDT - 02/22/2025 11:59 PM CDT Hospital Encounter Department of Radiology in [address] [phone] Kadeem Marshall P.A.-C., M.S. [address] [place] [phone] Secondary Malignant Neoplasm Liver (HCC) Discharge Disposition: Home or Self Care Social History Tobacco Use Types Packs/Day Years Used Date Smoking Tobacco: Never Passive Smoke Exposure: Never Smokeless Tobacco: Never Alcohol Use Standard Drinks/Week Comments Not Currently 0 (1 standard drink = 0.6 oz pur e alcohol) [facility] Utilities Answer Date Recorded In the past 12 months has e [employer], gas, oil, or water [employer] threatened to shut off services in your [...] your living situation today? I have a [facility] place to live 2024 Education Answer [...] (Latest Contact Info) Description 03/12/2025 11:30 AM AGRICULTURAL EQUIPMENT TEST ENGINEER Appointment Department of Gastroenterology in [place], [place] [address] [place] [phone] Marquise Gill M.D. [address] [place] [phone] Kala Woo APRN, C.N.P., D.N.P., M.S.N. [address] [place] [phone] Discharge Disposition: Home or Self Care 03/12/2025 3:30 PM AGRICULTURAL EQUIPMENT TEST ENGINEER Appointment Department of Radiation Oncology in [place], [place] [address] [place] [phone] Faith Ellis M.D. [address] [place] [address] 03/13/2025 3:45 PM AGRICULTURAL EQUIPMENT TEST ENGINEER Appointment Department of Radiation Oncology in [place], [place] [address] [place] [phone] Faith Ellis M.D. [address] [place] [phone] 03/14/2025 3:30 PM AGRICULTURAL EQUIPMENT TEST ENGINEER Appointment Department of Radiation Oncology in [place], [place] [address] [place] [phone] Faith Ellis M.D. [address] [place] [phone] 03/14/2025 3:45 PM AGRICULTURAL EQUIPMENT TEST ENGINEER Appointment Department of Radiation Oncology in [address] [phone] Sandro Guerrero M.D. [address] [place] [address] 03/15/2025 8:30 AM AGRICULTURAL EQUIPMENT TEST ENGINEER Lab Department of Laboratory Medicine and Pathology, [facility], in [place], [place] [address] [place] [phone] Kadeem Marshall P.A.-C., M.S. [address] [place] [phone] 03/15/2025 9:40 AM AGRICULTURAL EQUIPMENT TEST ENGINEER Education Department of Oncology in [place], [place] [address] [place] [phone] Kadeem Marshall P.A.-C., M.S. [address] [place] [phone] 03/15/2025 10:30 AM AGRICULTURAL EQUIPMENT TEST ENGINEER Infusion Department of Oncology in [place], [place] [address] [place] [phone] Kadeem Marshall P.A.-C., M.S. [address] [place] [phone] 03/15/2025 2:25 PM AGRICULTURAL EQUIPMENT TEST ENGINEER Appointment Department of Cardiovascular Diseases in [place], [place] [address] [place] [phone] Kadeem Marshall P.A.-C., M.S. [address] [place] [phone] Discharge Disposition: Home or Self Care 03/15/2025 3:30 PM AGRICULTURAL EQUIPMENT TEST ENGINEER Appointment Department of Radiation Oncology in [place], [place] [address] [place] [phone] Faith Ellis M.D. [address] [place] [phone] 03/16/2025 3:30 PM AGRICULTURAL EQUIPMENT TEST ENGINEER Appointment Department of Radiation Oncology in [place], [place] [address] [place] [phone] Faith Ellis M.D. [address] [place] [phone] 04/05/2025 8:30 AM AGRICULTURAL EQUIPMENT TEST ENGINEER Lab Department of Oncology in [place], [place] [address] [place] [phone] Kadeem Marshall P.A.-C., M.S. [address] [place] [phone] 04/05/2025 10:40 AM AGRICULTURAL EQUIPMENT TEST ENGINEER Office Visit Department of Oncology in [place], [place] [address] [place] [phone] Kadeem Marshall P.A.-C., M.S. [address] [place] [phone] 04/05/2025 1:00 PM AGRICULTURAL EQUIPMENT TEST ENGINEER Infusion Department of Oncology in [place], [place] [address] [place] [phone] Kadeem Marshall P.A.-C., M.S. [address] [place] [phone] 04/06/2025 10:00 AM AGRICULTURAL EQUIPMENT TEST ENGINEER Comprehensive Visit Department of Palliative Care in [place], [place] [address] [place] [phone] Ana Rosa Hurtado APRN, C.N.P., D.N.P. [address] [place] [phone] 04/30/2025 7:15 AM AGRICULTURAL EQUIPMENT TEST ENGINEER Lab Department of Oncology in [place], [place] [address] [place] [phone] Kadeem Marshall P.A.-C., M.S. [address] [place] [phone] 04/30/2025 9:20 AM AGRICULTURAL EQUIPMENT TEST ENGINEER Office Visit Department of Oncology in [address] [phone] Kadeem Marshall P.A.-C., M.S. [address] [place] [phone] 04/30/2025 2:30 PM AGRICULTURAL EQUIPMENT TEST ENGINEER Infusion Department of Oncology in [address] [phone] Kadeem Marshall P.A.-C., M.S. [address] [place] [phone] 05/21/2025 11:00 AM AGRICULTURAL EQUIPMENT TEST ENGINEER Lab Department of Oncology in [place], [place] [address] [place] [phone] Kadeem Marshall P.A.-C., M.S. [address] [place] [phone] 05/21/2025 1:20 PM AGRICULTURAL EQUIPMENT TEST ENGINEER Office Visit Department of Oncology in [place], [place] [address] [place] [phone] Kadeem Marshall P.A.-C., M.S. [address] [place] [phone] 05/21/2025 2:00 PM AGRICULTURAL EQUIPMENT TEST ENGINEER Infusion Department of Oncology in [place], [place] [address] [place] [phone] Kadeem Marshall P.A.-C., M.S. [address] [place] [phone] documented as of this encounter Procedures Procedure [...] cm left lower anterior abdominal wall mass (1/233), previously 2.9 cm. [...] Mediastinum: Unremarkable visualized thyroid gland. Right chest mfswLlkx-B-Tbxl terminates in the high right atrium. Normal heart size. Nopericardial effusion. Normal caliber great vessels. No thoracicadenopathy. Unremarkable esophagus. Liver: Similar post ablation changes. Increased number and size ofhypoattenuating hepatic lesions, including new 0.6 cm left hepatic lesion(1/60) and increased size of 1.4 cm right hepatic lesion (1/118),previously 0.5 cm. Gallbladder/Biliary System: No biliary ductal [...] small volume ascites. us Kadeem Marshall P.A.-C. 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 No [...] Mediastinum: Unremarkable visualized thyroid gland. Right chest dbvcAkor-O-Bnvc terminates in the high right atrium. Normal heart size. Nopericardial effusion. Normal caliber great vessels. No thoracicadenopathy. Unremarkable esophagus. Liver: Similar post ablation changes. Increased number and size ofhypoattenuating hepatic lesions, including new 0.6 cm left hepatic lesion(60) and increased size of 1.4 cm right hepatic lesion (118),previously 0.5 cm. Gallbladder/Biliary System: No biliary ductal [...] documented as of this encounter Care Teams Blender/Braze Applicator Relationship Specialty Start Date End Date Elsewhere, Pcp PCP - General Internal Medicine 03/08/24 documented as of this encounter
--- OUTSIDE RECORDS SUMMARY | 2025-02-23 05:45 | XMS_ITS | Encounter Summary ---
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 [address] [place] [address] Phone: tel: fax: Department of Oncology in [place], [place] [address] [place] [address] Phone: tel: Referral ID Status Reason Start Date Expiration Date Visits Re quested Visits Authorized [id number] Closed 09/06/2024 09/06/2025 99 99 Encounter Details Date Type Department Care Team (Late st Contact Info) Description 02/23/2025 6:45 AM CDT Lab Department of Oncology in [place], [place] [address] [place] [phone] Kadeem Marshall P.A.-C., M.S. [address] [place] [address] Malignant Neoplasm Of Cecum (HCC) (Primary Dx); Secondary Malignant Neoplasm Peritoneum (HCC); Secondary Malignant Neoplasm Liver (HCC) Social History Tobacco Use Types Packs/Day Years Used Date Smoking Tobacco: Never Passive Smoke Exposure: Never Smokeless Tobacco: Never Alcohol Use Standard Drinks/Week Comments Not Currently 0 (1 standard drink = 0.6 oz pur e alcohol) [facility] Utilities Answer Date Recorded In the past 12 months has e [employer], gas, oil, or water [employer] threatened to shut off services in your [...] your living situation today? [facility] 2024 Education Answer [...] (Latest Contact Info) Description 03/12/2025 11:30 AM EXECUTIVE OFFICER Appointment Department of Gastroenterology in [address] [phone] Marquise Gill M.D. [address] [place] [phone] Kala Woo APRN, C.N.P., D.N.P., M.S.N. [address] [place] [phone] Discharge Disposition: Home or Self Care 03/12/2025 3:30 PM EXECUTIVE OFFICER Appointment Department of Radiation Oncology in [address] [phone] Faith Ellis M.D. [address] [place] [phone] 03/13/2025 3:45 PM EXECUTIVE OFFICER Appointment Department of Radiation Oncology in [address] [phone] Faith Ellis M.D. 200 [place] [address] 03/14/2025 3:30 PM EXECUTIVE OFFICER Appointment Department of Radiation Oncology in [address] [phone] Faith Ellis M.D. [address] [place] [phone] 03/14/2025 3:45 PM EXECUTIVE OFFICER Appointment Department of Radiation Oncology in [place], [place] [address] [place] [phone] Sandro Guerrero M.D. [address] [place] [address] 03/15/2025 8:30 AM EXECUTIVE OFFICER Lab Department of Laboratory Medicine and Pathology, [facility], in [place], [place] [address] [place] [phone] Kadeem Marshall P.A.-C., M.S. [address] [place] [phone] 03/15/2025 9:40 AM EXECUTIVE OFFICER Education Department of Oncology in [place], [place] [address] [place] [phone] Kadeem Marshall P.A.-C., M.S. [address] [place] [phone] 03/15/2025 10:30 AM EXECUTIVE OFFICER Infusion Department of Oncology in [place], [place] [address] [place] [phone] Kadeem Marshall P.A.-C., M.S. [address] [place] [phone] 03/15/2025 2:25 PM EXECUTIVE OFFICER Appointment Department of Cardiovascular Diseases in [place], [place] [address] [place] [phone] Kadeem Marshall P.A.-C., M.S. [address] [place] [phone] Discharge Disposition: Home or Self Care 03/15/2025 3:30 PM EXECUTIVE OFFICER Appointment Department of Radiation Oncology in [place], [place] [address] [place] [phone] Faith Ellis M.D. [address] [place] [phone] 03/16/2025 3:30 PM EXECUTIVE OFFICER Appointment Department of Radiation Oncology in [place], [place] [address] [place] [address] Faith Ellis M.D. [address] [place] [phone] 04/05/2025 8:30 AM EXECUTIVE OFFICER Lab Department of Oncology in [place], [place] [address] [place] [phone] Kadeem Marshall P.A.-C., M.S. [address] [place] [phone] 04/05/2025 10:40 AM EXECUTIVE OFFICER Office Visit Department of Oncology in [place], [place] [address] [place] [phone] Kadeem Marshall P.A.-C., M.S. [address] [place] [phone] 04/05/2025 1:00 PM EXECUTIVE OFFICER Infusion Department of Oncology in [place], [place] [address] [place] [phone] Kadeem Marshall P.A.-C., M.S. [address] [place] [phone] 04/06/2025 10:00 AM EXECUTIVE OFFICER Comprehensive Visit Department of Palliative Care in [place], [place] [address] [place] [phone] GenesisAna Rosa naranjo APRN, C.N.PAlpesh, D.N.P. [address] [place] [phone] 04/30/2025 7:15 AM EXECUTIVE OFFICER Lab Department of Oncology in [place], [place] [address] [place] [address] Kadeem Marshall P.A.-C., M.S. [address] [place] [phone] 04/30/2025 9:20 AM EXECUTIVE OFFICER Office Visit Department of Oncology in [place], [place] [address] [place] [phone] Kadeem Marshall P.A.-C., M.S. [address] [place] [phone] 04/30/2025 2:30 PM EXECUTIVE OFFICER Infusion Department of Oncology in [place], [place] [address] [place] [phone] Kadeem Marshall P.A.-C., M.S. [address] [place] [phone] 05/21/2025 11:00 AM EXECUTIVE OFFICER Lab Department of Oncology in [place], [place] [address] [place] [phone] Kadeem Marshall P.A.-C., M.S. [address] [place] [phone] 05/21/2025 1:20 PM EXECUTIVE OFFICER Office Visit Department of Oncology in [place], [place] [address] [place] [phone] Kadeem Marshall P.A.-C., M.S. [address] [place] [phone] 05/21/2025 2:00 PM EXECUTIVE OFFICER Infusion Department of Oncology in [place], [place] [address] [place] [address] Kadeem Marshall P.A.-C., M.S. 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) MAGNESIUM, S Routine 02/23/2025 6:58 AM CDT Malignant 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) CARCINOEMBRYONIC AG (CEA), S Routine 02/23/2025 6:58 AM CDT Malignant Neoplasm Of Cecum (HCC) BILIRUBIN DIRECT, S/P Routine 02/23/2025 6:58 AM CDT Malignant 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 LAB BLOOD ADD-ON Fi nal Result Performing Organization Address [facility] de Phone Number [facility] [address] 200 [place] [address] * (ABNORMAL) CRP (C-Reactive Protein) (02/23/2025 6:58 AM CDT) C-Reactive Protein (CRP), S 13.3(H) <5.0 mg/L 02/23/2025 7:51 AM CDT DT Blood (Blood, Venous) 02/23/2025 6:58 AM CDT 02/23/2025 7:11 AM CDT Kadeem Marshall P.A.-C., M.S. LAB BLOOD ADD-ON Fi nal Result Performing Organization Address [facility] de Phone Number [facility] 200 [place] [address] * (ABNORMAL) CEA (Carcinoembryonic Antigen) (02/23/2025 6:58 AM CDT) Carcinoembryonic Ag (CEA), S 11.1(H) ng/mL 02/23/2025 11:11 AM CDT [facility] Comment: ----REFERENCE VALUE---- <=3.0 (Non-smokers) Some smokers may have elevated CEA, usually <5.0. ----ADDITIONAL INFORMATION---- The testing method is an immunoenzymatic assay manufactured by [employer] and performed on the [employer] DxI 800. Values obtained with different assay methods or kits may be different and cannot be used interchangeably. Test results cannot be interpreted as absolute evidence for the presence or absence of malignant disease. Blood (Blood, Venous) 02/23/2025 6:58 AM CDT 02/23/2025 10:07 AM CDT us Kadeem Marshall P.A.-C. M.S. LAB BLOOD ADD-ON Fi nal Result Performing Organization Address City/[facility]/ZIP Co de Phone Number [facility] [address] [place] [address] [facility] [address] [place] [address] * Bilirubin, Direct (02/23/2025 6:58 AM CDT) Bilirubin, Direct, S 0.1 0.0 - 0.3 mg/dL 02/23/2025 7:51 AM CDT DTL Blood (Blood, Venous) 02/23/2025 6:58 AM CDT 02/23/2025 7:11 AM CDT us Kadeem Marshall P.A.-C. M.S. LAB BLOOD ADD-ON Fi nal Result Performing Organization Address City/[facility] Co de Phone Number [facility] [address] [place] [address], [facility] [address] [place] [address] * (ABNORMAL) Comprehensive Metabolic Panel (02/23/2025 6:58 AM CDT) Potassium, S 4.0 3.6 - 5.2 mmol/L 02/23/2025 7:51 AM CDT DTL Sodium, S 142 135 - 145 mmol/L 02/23/2025 7:51 AM CDT DTL Chloride, S 104 98 - 107 mmol/L 02/23/2025 7:51 AM CDT DTL Bicarbonate, S 25 22 - 29 mmol/L 02/23/2025 7:51 AM CDT DTL Anion Gap 13 7 - 15 02/23/2025 7:51 AM CDT DTL BUN (Blood Urea Nitrogen), S 10 6 - 21 mg/dL 02/23/2025 7:51 AM CDT DTL Creatinine 0.53(L) 0.59 - 1.04 mg/dL 02/23/2025 7:51 AM CDT DTL Estimated GFR (eGFR) >90 >=60 mL/min/BS A 02/23/2025 7:51 AM CDT DTL Comment: Estimated GFR calculated using the 2020 CKD_EPI creatinine equation. Calcium, Total, S 9.4 8.8 - 10.2 mg/dL 02/23/2025 7:51 AM CDT DTL Glucose, S 92 70 - 140 mg/dL 02/23/2025 7:51 AM CDT DTL Protein, Total, S 5.8(L) 6.3 - 7.9 g/dL 02/23/2025 7:51 AM CDT DTL Albumin, S 4.2 3.5 - 5.0 g/dL 02/23/2025 7:51 AM CDT DTL Aspartate Aminotransferase (AST), S 26 8 - 43 U/L 02/23/2025 7:51 AM CDT DTL Alkaline Phosphatase, S 83 35 - 104 U/L 02/23/2025 7:51 AM CDT DTL Alanine Aminotransferase (ALT), S 18 7 - 45 U/L 02/23/2025 7:51 AM CDT DTL Bilirubin, Total, S 0.2 0.0 - 1.2 mg/dL 02/23/2025 7:51 AM CDT DTL Blood (Blood, Venous) 02/23/2025 6:58 AM CDT 02/23/2025 7:11 AM CDT us Kadeem Marshall P.A.-C., M.S. LAB BLOOD ADD-ON Fi nal Result [facility] [address] [place] [address], [place] DTL [facility] [address] [place] [address] * (ABNORMAL) CBC with Differential, Blood (02/23/2025 6:58 AM CDT) [facility] Hemoglobin 12.1 11.6 - 15.0 g/dL 02/23/2025 7:19 AM CDT DTL Hematocrit 36.3 35.5 - 44.9 % 02/23/2025 7:19 AM CDT DTL Erythrocytes 3.82(L) 3.92 - 5.13 x10(12)/L 02/23/2025 7:19 AM CDT DTL MCV 95.0 78.2 - 97.9 fL 02/23/2025 7:19 AM CDT DTL RBC Distrib Width 14.6 12.2 - 16.1 % 02/23/2025 7:19 AM CDT DTL Platelet Count 166 157 - 371 x10(9)/L 02/23/2025 7:19 AM CDT DTL Leukocytes 4.4 3.4 - 9.6 x10(9)/L 02/23/2025 7:19 AM CDT DTL Neutrophils 3.03 1.56 - 6.45 x10(9)/L 02/23/2025 7:19 AM CDT DH[facility] Lymphocytes 0.91(L) 0.95 - 3.07 x10(9)/L 02/23/2025 7:19 AM CDT DTL Monocytes 0.38 0.26 - 0.81 x10(9)/L 02/23/2025 7:19 AM CDT DTL Eosinophils 0.06 0.03 - 0.48 x10(9)/L 02/23/2025 7:19 AM CDT DTL Basophils <0.03 0.01 - 0.08 x10(9)/L 02/23/2025 7:19 AM CDT DTL Blood (Blood, Venous) 02/23/2025 6:58 AM CDT 02/23/2025 7:11 AM CDT us Kadeem Marshall P.A.-C., M.S. LAB BLOOD ADD-ON Fi nal Result [facility] [address] [place] [address], [facility] [address] [place] [address] [facility] [address] [place] [address] * Magnesium (02/23/2025 6:58 AM CDT) Magnesium, S 1.8 1.7 - 2.3 mg/dL 02/23/2025 7:51 AM CDT DTL Blood (Blood, Venous) 02/23/2025 6:58 AM CDT 02/23/2025 7:11 AM CDT us Kadeem Marshall P.A.-C., M.S. 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) documented in this encounter Administered Medications Inactive Administered Medications - up to 3 most recent administrations Medication Order MAR Action Action Date Dose Rate Site heparin flush 500 Units 500 Units, intra-catheter, As needed, line care, Starting on Wed02/23/25 at 0637, When IVAD accessed and not infusing: When [...] port/lumen.Indications:Malignan t Neoplasm Of Cecum (HCC) Given 02/23/2025 6:54 AM CDT 500 Units sodium chloride 0.9 % injection 10-20 mL 10-20 mL, intra-catheter, As needed, line care, Starting on Wed02/23/25 at 0637, When IVAD accessed and infusing: Flush prior to and following infusion, between multiple consecutive infusions. 10 mL to each port/lumen.Indications:Malignan t Neoplasm Of Cecum (HCC) Given 02/23/2025 6:53 AM CDT 10 mL sodium chloride 0.9 % injection 20-40 mL 20-40 mL, intra-catheter, As needed, line care, Starting on Wed02/23/25 at 0637, When IVAD accessed and infusing: Flush prior to blood sampling, post blood transfusion or post blood sampling. 20 mL to each port/lumen.Indications:Malignan t Neoplasm Of Cecum (HCC) Given 02/23/2025 6:53 AM CDT 20 mL documented in this encounter Additional Health Concerns Infection Onset Date Last Indicated Resolved Time Protective Environment 06/02/2024 06/02/2024 documented as of this encounter Care Teams Waxer Operator Relationship Specialty Start Date End Date Elsewhere, Pcp PCP - General Internal Medicine 03/08/24 documented as of this encounter
--- OUTSIDE RECORDS SUMMARY | 2025-02-23 08:20 | XMS_ITS | Encounter Summary ---
Author Organization [facility] Address [address] [place] [address] Care Team Providers Care Facsimile Operator Name Role Phone Elsewhere, Pcp Primary Care Provider Unavailabl e Reason for Referral * Outpatient (Routine) Specialty Diagnoses / Procedures Referred By Contac t Referred To Contact Oncology Diagnoses Malignant Neoplasm Of Cecum (HCC) Kadeem Marshall P.A.-C., M.S. [address] [place] [address] Phone: tel: fax: [facility] Referral ID Status Reason Start Date Expiration Date Visits Re quested Visits Authorized * Outpatient (Routine) Specialty Diagnoses / Procedures Referred By Contac t Referred To Contact Oncology Diagnoses Malignant Neoplasm Of Cecum (HCC) Kadeem Marshall P.A.-C., M.S. [address] [place] [phone] Phone: tel: fax: [facility] Referral ID Status Reason Start Date Expiration Date Visits Re quested Visits Authorized * Outpatient (Routine) Specialty Diagnoses / Procedures Referred By Contac t Referred To Contact Oncology Diagnoses Malignant Neoplasm Of Cecum (HCC) Kadeem Marshall P.A.-C., M.S. [address] [place] [phone] Phone: tel: fax: [facility] Referral ID Status Reason Start Date Expiration Date Visits Re quested Visits Authorized * Specialty Diagnoses / Procedures Referred By Contac t Referred To Contact Diagnoses Malignant Neoplasm Of Cecum (HCC) Kadeem Marshall P.A.-C., M.S. 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 [address] [place] [address] Phone: tel: fax: Department of Oncology in [place], [place] [address] [place] [address] Phone: tel: Referral ID Status Reason Start Date Expiration Date Visits Re quested Visits Authorized [id number] Closed 09/06/2024 09/06/2025 99 99 Encounter Details Date Type Department Care Team (Late st Contact Info) Description 02/23/2025 9:20 AM CDT Office Visit Department of Oncology in [place], [place] [address] [place] [phone] Kadeem Marshall P.A.-C., M.S. 200 [place] [phone] Malignant Neoplasm Of Cecum (HCC) (Primary Dx); Secondary Malignant Neoplasm Peritoneum (HCC); Examination Prior To Chemotherapy Social History Tobacco Use Types Packs/Day Years Used Date Smoking Tobacco: Never Passive Smoke Exposure: Never Smokeless Tobacco: Never Alcohol Use Standard Drinks/Week Comments Not Currently 0 (1 standard drink = 0.6 oz pur e alcohol) [facility] Utilities Answer Date Recorded In [...] your living situation today? I have a [facility] place [facility] live 2024 Education [...] Yes-changing regimen due to progression SUBJECTIVE PRIMARY [place] ONCOLOGIST Kadeem Marshall P.A.-C., M.S. Ralph Corado M.B.B.S. MShankar CHIEF COMPLAINT / REASON FOR VISIT Ms. [...] cancers. Patient is status post remote . Corder pathology review Colon, cecum, mass, biopsy ([id number]; 07/03/2022): Invasive moderately- adenocarcinoma, pMMR. 07/30/2022 Surgery and Procedures ROBOTIC-ASSISTED COLECTOMY RIGHT WITH ANASTOMOSIS. Histologic Type: Adenocarcinoma Histologic Grade: G2 pT Category: pT3 pN Category: pN2a 07/30/2022 Genetic Testing and Tumor Genotyping 07/30/22 Corder CRC Panel CINDY/PORSHA wt NAIF 10/21/2022 Clinical [...] fully negative panel); [facility]- Cancer panel through [facility]. 2024 Surgery and Procedures percutaneous microwave [...] fully negative panel); [facility] Cancer panel through [facility]. 05/2024 - Chemotherapy Restaging CT scan [...] (Latest Contact Info) Description 03/12/2025 11:30 AM GLACIOLOGIST Appointment Department of Gastroenterology in [address] [phone] Marquise Gill M.D. [address] [place] [phone] Kala Woo APRN, C.N.P., D.N.P., M.S.N. [address] [place] [phone] Discharge Disposition: Home or Self Care 03/12/2025 3:30 PM GLACIOLOGIST Appointment Department of Radiation Oncology in [address] [phone] Faith Ellis M.D. 200 [place] [phone] 03/13/2025 3:45 PM GLACIOLOGIST Appointment Department of Radiation Oncology in [address] [phone] Faith Ellis M.D. 200 [place] [phone] 03/14/2025 3:30 PM GLACIOLOGIST Appointment Department of Radiation Oncology in [address] [phone] Faith Ellis M.D. [address] [place] [phone] 03/14/2025 3:45 PM GLACIOLOGIST Appointment Department of Radiation Oncology in [place], [place] [address] [place] [phone] Sandro Guerrero M.D. [address] [place] [address] 03/15/2025 8:30 AM GLACIOLOGIST Lab Department of Laboratory Medicine and Pathology, [facility], in [place], [place] [address] [place] [phone] Kadeem Marshall P.A.-C., M.S. [address] [place] [phone] 03/15/2025 9:40 AM GLACIOLOGIST Education Department of Oncology in [place], [place] [address] [place] [phone] Kadeem Marshall P.A.-C., M.S. [address] [place] [phone] 03/15/2025 10:30 AM GLACIOLOGIST Infusion Department of Oncology in [place], [place] [address] [place] [phone] Kadeem Marshall P.A.-C., M.S. [address] [place] [phone] 03/15/2025 2:25 PM GLACIOLOGIST Appointment Department of Cardiovascular Diseases in [place], [place] [address] [place] [phone] Kadeem Marshall P.A.-C., M.S. [address] [place] [phone] Discharge Disposition: Home or Self Care 03/15/2025 3:30 PM GLACIOLOGIST Appointment Department of Radiation Oncology in [place], [place] [address] [place] [phone] Faith Ellis M.D. [address] [place] [phone] 03/16/2025 3:30 PM GLACIOLOGIST Appointment Department of Radiation Oncology in [place], [place] [address] [place] [phone] Faith Ellis M.D. [address] [place] [phone] 04/05/2025 8:30 AM GLACIOLOGIST Lab Department of Oncology in [place], [place] [address] [place] [phone] Kadeem Marshall P.A.-C., M.S. [address] [place] [phone] 04/05/2025 10:40 AM GLACIOLOGIST Office Visit Department of Oncology in [place], [place] [address] [place] [phone] Kadeem Marshall P.A.-C., M.S. [address] [place] [phone] 04/05/2025 1:00 PM GLACIOLOGIST Infusion Department of Oncology in [place], [place] [address] [place] [phone] Kadeem Marshall P.A.-C., M.S. [address] [place] [phone] 04/06/2025 10:00 AM GLACIOLOGIST Comprehensive Visit Department of Palliative Care in [place], [place] [address] [place] [phone] GenesisAna Rosa naranjo APRN, C.N.PAlpesh, D.N.P. [address] [place] [phone] 04/30/2025 7:15 AM GLACIOLOGIST Lab Department of Oncology in [place], [place] [address] [place] [phone] Kadeem Marshall P.A.-C., M.S. [address] [place] [phone] 04/30/2025 9:20 AM GLACIOLOGIST Office Visit Department of Oncology in [place], [place] [address] [place] [phone] Kadeem Marshall P.A.-C., M.S. [address] [place] [phone] 04/30/2025 2:30 PM GLACIOLOGIST Infusion Department of Oncology in [place], [place] [address] [place] [phone] Kadeem Marshall P.A.-C., M.S. [address] [place] [phone] 05/21/2025 11:00 AM GLACIOLOGIST Lab Department of Oncology in [place], [place] [address] [place] [phone] Kadeem Marshall P.A.-C., M.S. [address] [place] [phone] 05/21/2025 1:20 PM GLACIOLOGIST Office Visit Department of Oncology in [place], [place] [address] [place] [phone] Kadeem Marshall P.A.-C., M.S. [address] [place] [phone] 05/21/2025 2:00 PM GLACIOLOGIST Infusion Department of Oncology in [place], [place] [address] [place] [phone] Kadeem Marshall P.A.-C., M.S. [address] [place] [address] Scheduled Orders Name Type Priority Associated Diagnoses Orde r Schedule Perform central slackline operator: De-access port Procedures Routine Malignant Neoplasm Of [...] documented as of this encounter Care Teams Facsimile Operator Relationship Specialty Start Date End Date Elsewhere, Pcp PCP - General Internal Medicine 03/08/24 documented as of this encounter
--- OUTSIDE RECORDS SUMMARY | 2025-02-23 09:00 | XMS_ITS | Encounter Summary ---
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 [address] [place] [phone] Phone: tel: fax: [facility] Referral ID Status Reason Start Date Expiration Date Visits Re quested Visits Authorized [id number] Closed 02/23/2025 09/06/2025 1 1 Encounter Details Date Type Department Care Team (Late st Contact Info) Description 02/23/2025 10:00 AM CDT Infusion Department of Oncology in [place], [place] [address] [place] [phone] Kadeem Marshall P.A.-C., M.S. [address] [place] [phone] Malignant Neoplasm Of Cecum (HCC); Secondary Malignant Neoplasm Peritoneum (HCC) Social History Tobacco Use Types Packs/Day Years Used Date Smoking Tobacco: Never Passive Smoke Exposure: Never Smokeless Tobacco: Never Alcohol Use Standard Drinks/Week Comments Not Currently 0 (1 standard drink = 0.6 oz pur e alcohol) [facility] Utilities Answer Date Recorded In the [...] your living situation today? I have a [facility] place [facility] 2024 Education [...] (Latest Contact Info) Description 03/12/2025 11:30 AM INSPECTOR AIDE Appointment Department of Gastroenterology in [place], [place] [address] [place] [phone] Marquise Gill M.D. [address] [place] [phone] Kala Woo APRN, C.N.P., D.N.P., M.S.N. [address] [place] [phone] Discharge Disposition: Home or Self Care 03/12/2025 3:30 PM INSPECTOR AIDE Appointment Department of Radiation Oncology in [address] [phone] Faith Ellis M.D. [address] [place] [phone] 03/13/2025 3:45 PM INSPECTOR AIDE Appointment Department of Radiation Oncology in [address] [phone] Faith Ellis M.D. [address] [place] [phone] 03/14/2025 3:30 PM INSPECTOR AIDE Appointment Department of Radiation Oncology in [address] [phone] Faith Ellis M.D. [address] [place] [phone] 03/14/2025 3:45 PM INSPECTOR AIDE Appointment Department of Radiation Oncology in [address] [phone] Sandro Guerrero M.D. [address] [place] [phone] 03/15/2025 8:30 AM INSPECTOR AIDE Lab Department of Laboratory Medicine and Pathology, [facility], in [place], [place] [address] [place] [phone] Kadeem Marshall P.A.-C., M.S. [address] [place] [phone] 03/15/2025 9:40 AM INSPECTOR AIDE Education Department of Oncology in [place], [place] [address] [place] [phone] Kadeem Marshall P.A.-C., M.S. [address] [place] [phone] 03/15/2025 10:30 AM INSPECTOR AIDE Infusion Department of Oncology in [place], [place] [address] [place] [phone] Kadeem Marshall P.A.-C., M.S. [address] [place] [phone] 03/15/2025 2:25 PM INSPECTOR AIDE Appointment Department of Cardiovascular Diseases in [place], [place] [address] [place] [phone] Kadeem Marshall P.A.-C., M.S. [address] [place] [phone] Discharge Disposition: Home or Self Care 03/15/2025 3:30 PM INSPECTOR AIDE Appointment Department of Radiation Oncology in [place], [place] [address] [place] [phone] Faith Ellis M.D. [address] [place] [phone] 03/16/2025 3:30 PM INSPECTOR AIDE Appointment Department of Radiation Oncology in [place], [place] [address] [place] [phone] Faith Ellis M.D. [address] [place] [phone] 04/05/2025 8:30 AM INSPECTOR AIDE Lab Department of Oncology in [place], [place] [address] [place] [phone] Kadeem Marshall P.A.-C., M.S. [address] [place] [phone] 04/05/2025 10:40 AM INSPECTOR AIDE Office Visit Department of Oncology in [place], [place] [address] [place] [phone] Kadeem Marshall P.A.-C., M.S. [address] [place] [phone] 04/05/2025 1:00 PM INSPECTOR AIDE Infusion Department of Oncology in [place], [place] [address] [place] [phone] Kadeem Marshall P.A.-C., M.S. [address] [place] [phone] 04/06/2025 10:00 AM INSPECTOR AIDE Comprehensive Visit Department of Palliative Care in [place], [place] [address] [place] [phone] Ana Rosa Hurtado APRN, C.N.P., D.N.P. [address] [place] [phone] 04/30/2025 7:15 AM INSPECTOR AIDE Lab Department of Oncology in [place], [place] [address] [place] [phone] Kadeem Marshall P.A.-C., M.S. [address] [place] [phone] 04/30/2025 9:20 AM INSPECTOR AIDE Office Visit Department of Oncology in [place], [place] [address] [place] [phone] Kadeem Marshall P.A.-C., M.S. [address] [place] [phone] 04/30/2025 2:30 PM INSPECTOR AIDE Infusion Department of Oncology in [place], [place] [address] [place] [phone] Kadeem Marshall P.A.-C., M.S. [address] [place] [phone] 05/21/2025 11:00 AM INSPECTOR AIDE Lab Department of Oncology in [place], [place] [address] [place] [phone] Kadeem Marshall P.A.-C., M.S. [address] [place] [phone] 05/21/2025 1:20 PM INSPECTOR AIDE Office Visit Department of Oncology in [place], [place] [address] [place] [phone] Kadeem Marshall P.A.-C., M.S. [address] [place] [phone] 05/21/2025 2:00 PM INSPECTOR AIDE Infusion Department of Oncology in [place], [place] [address] [place] [phone] Kadeem Marshall P.A.-C., M.S. 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
--- OUTSIDE RECORDS SUMMARY | 2025-03-05 12:43 | XMS_ITS | Encounter Summary ---
Author Organization [facility] Address [address] [place] [address] Care Team Providers Care Shipping And Receiving Weigher Name Role Phone Elsewhere, Pcp Primary Care Provider Unavailabl e Reason for Visit * Reason Comments Abdominal Pain Ab pain for several weeks and just getting worse, endorses bloating too. Abdominal cancer hx. 02/02 pain. Diarrhea last 5 days, west urination Encounter Details Date Type Department Care Team (Late st Contact Info) Description 03/05/2025 12:43 PM DUPLICATING MACHINE MECHANIC - 03/05/2025 3:05 PM DUPLICATING MACHINE MECHANIC Emergency [facility] [address] [place] [phone] Tyesha Rose, FIELD ORGANIZER, C.N.P. [address] [place] [phone] Abdominal Pain (Primary Dx); Ascites Malignant (HCC) Discharge Disposition: Home or Self Care Social History Tobacco Use Types Packs/Day Years Used Date Smoking Tobacco: Never Passive Smoke Exposure: Never Smokeless Tobacco: Never Alcohol Use Standard Drinks/Week Comments Not Currently 0 (1 standard drink = 0.6 oz pur e alcohol) [facility] Utilities Answer Date Recorded In the past [...] your living situation today? [facility] 2024 Education Answer [...] Comments Blood Pressure 132/76 03/05/2025 1:43 PM DUPLICATING MACHINE MECHANIC Pulse 92 03/05/2025 1:43 PM DUPLICATING MACHINE MECHANIC Temperature 36.5 C (97.7 F) 03/05/2025 12:39 PM DUPLICATING MACHINE MECHANIC Respiratory Rate - - Oxygen Saturation 95% 03/05/2025 1:43 PM DUPLICATING MACHINE MECHANIC Inhaled Oxygen Concentration - - Weight 68.1 kg (150 lb 2.1 oz) 03/05/2025 12:39 PM DUPLICATING MACHINE MECHANIC Height - - Body Mass Index 27.45 02/23/2025 9:00 AM CDT documented in this encounter Discharge Instructions * Discharge Instructions* Tyesha Rose, DALIA, C.N.P. - 03/05/2025 2:36 PM DUPLICATING MACHINE MECHANIC For pain you can take your celebrex [...] normal, lactate normal Our GI surgeon in [place] can see you tomorrow to drain the fluid. I haven't heard back from him with a time. Either his office or I will call you this afternoon with a time. His name is Dr. Zhang, GI surgeon in [place]. ICATING MACHINE MECHANIC ICATING MACHINE MECHANIC documented in this encounter Medications at Time [...] hydromorphone in department, Discussed with GI provider tailor women's garment alteration, he is able to see her tomorrow [...] which is new from prior. Otherwise unremarkable 1627 Called patient to let her know to go to Same Day Surgery clinic at [place] at 11 am tomorrow morning, no restrictions. Per Dr. Gill. 1627 I offered to complete paracentesis with patient in [facility] emergency department and gave her the option to have it done with a surgeon in [place]. Final Diagnoses: as of 03/05/25 1629 Abdominal Pain Ascites Malignant (HCC) Tyesha Rose APRN, C.N.P. 03/05/25 1629 ICATING MACHINE MECHANIC documented in this encounter Plan of Treatment Upcoming Encounters Date Type Department Care Team (Latest Contact Info) Description 03/12/2025 11:30 AM DUPLICATING MACHINE MECHANIC Appointment Department of Gastroenterology in [address] [phone] Marquise Gill M.D. [address] [place] [phone] Kala Woo APRN, C.N.P., D.N.P., M.S.N. [address] [place] [phone] Discharge Disposition: Home or Self Care 03/12/2025 3:30 PM DUPLICATING MACHINE MECHANIC Appointment Department of Radiation Oncology in [address] [phone] Faith Ellis M.D. [address] [place] [address] 03/13/2025 3:45 PM DUPLICATING MACHINE MECHANIC Appointment Department of Radiation Oncology in [address] [phone] Faith Ellis M.D. [address] [place] [phone] 03/14/2025 3:30 PM DUPLICATING MACHINE MECHANIC Appointment Department of Radiation Oncology in [address] [phone] Faith Ellis M.D. [address] [place] [phone] 03/14/2025 3:45 PM DUPLICATING MACHINE MECHANIC Appointment Department of Radiation Oncology in [address] [phone] Sandro Guerrero M.D. [facility] [place] [address] 03/15/2025 8:30 AM DUPLICATING MACHINE MECHANIC Lab Department of Laboratory Medicine and Pathology, [facility], [place] [address] [place] [phone] Kadeem Marshall P.A.-C., M.S. [address] [place] [phone] 03/15/2025 9:40 AM DUPLICATING MACHINE MECHANIC Education Department of Oncology in [place], [place] [address] [place] [phone] Kadeem Marshall P.A.-C., M.S. [address] [place] [phone] 03/15/2025 10:30 AM DUPLICATING MACHINE MECHANIC Infusion Department of Oncology in [place], [place] [address] [place] [phone] Kadeem Marshall P.A.-C., M.S. [address] [place] [phone] 03/15/2025 2:25 PM DUPLICATING MACHINE MECHANIC Appointment Department of Cardiovascular Diseases in [place], [place] [address] [place] [phone] Kadeem Marshall P.A.-C., M.S. [address] [place] [phone] Discharge Disposition: Home or Self Care 03/15/2025 3:30 PM DUPLICATING MACHINE MECHANIC Appointment Department of Radiation Oncology in [place], [place] [address] [place] [phone] Faith Ellis M.D. [address] [place] [phone] 03/16/2025 3:30 PM DUPLICATING MACHINE MECHANIC Appointment Department of Radiation Oncology in [address] [phone] Faith Ellis M.D. [address] [place] [phone] 04/05/2025 8:30 AM DUPLICATING MACHINE MECHANIC Lab Department of Oncology in [place], [place] [address] [place] [phone] Kadeem Marshall P.A.-C., M.S. [address] [place] [phone] 04/05/2025 10:40 AM DUPLICATING MACHINE MECHANIC Office Visit Department of Oncology in [place], [place] [address] [place] [phone] Kadeem Marshall P.A.-C., M.S. [address] [place] [phone] 04/05/2025 1:00 PM DUPLICATING MACHINE MECHANIC Infusion Department of Oncology in [place], [place] [address] [place] [phone] Kadeem Marshall P.A.-C., M.S. [address] [place] [phone] 04/06/2025 10:00 AM DUPLICATING MACHINE MECHANIC Comprehensive Visit Department of Palliative Care in [place], [place] [address] [place] [phone] Ana Rosa Hurtado APRN, C.N.P., D.N.P. [address] [place] [phone] 04/30/2025 7:15 AM DUPLICATING MACHINE MECHANIC Lab Department of Oncology in [place], [place] [address] [place] [phone] Kadeem Marshall P.A.-C., M.S. [address] [place] [phone] 04/30/2025 9:20 AM DUPLICATING MACHINE MECHANIC Office Visit Department of Oncology in [address] [phone] Kadeem Marshall P.A.-C., M.S. [address] [place] [phone] 04/30/2025 2:30 PM DUPLICATING MACHINE MECHANIC Infusion Department of Oncology in [address] [phone] Kadeem Marshall P.A.-C., M.S. [address] [place] [phone] 05/21/2025 11:00 AM DUPLICATING MACHINE MECHANIC Lab Department of Oncology in [address] [phone] Kadeem Marshall P.A.-C., M.S. [address] [place] [phone] 05/21/2025 1:20 PM DUPLICATING MACHINE MECHANIC Office Visit Department of Oncology in [address] [phone] Kadeem Marshall P.A.-C., M.S. [address] [place] [phone] 05/21/2025 2:00 PM DUPLICATING MACHINE MECHANIC Infusion Department of Oncology in [address] [phone] Kadeem Marshall P.A.-C., M.S. [address] [place] [phone] documented as of this encounter Procedures Procedure Name Priority Date/Time Associated Diagnosis Comments CT ABDOMEN PELVIS WITH IV CONTRAST RAD - Semiurgent (Fast; most ED patients; some inpatients) 03/05/2025 1:42 PM DUPLICATING MACHINE MECHANIC CBC WITH DIFFERENTIAL, B STAT 03/05/2025 1:18 PM DUPLICATING MACHINE MECHANIC LIPASE, S/P STAT 03/05/2025 1:18 PM DUPLICATING MACHINE MECHANIC LACTATE, B/P STAT 03/05/2025 1:18 PM DUPLICATING MACHINE MECHANIC COMPREHENSIVE METABOLIC PANEL, S/P STAT 03/05/2025 1:18 PM DUPLICATING MACHINE MECHANIC URINALYSIS WITH MICROSCOPIC IF INDICATED, U STAT 03/05/2025 12:47 PM DUPLICATING MACHINE MECHANIC HC URINALYSIS AUTO W MICRO STAT 03/05/2025 12:47 PM DUPLICATING MACHINE MECHANIC documented in this encounter Results * CT Abdomen Pelvis with IV Contrast (03/05/2025 1:42 PM DUPLICATING MACHINE MECHANIC) Anatomical Region Laterality Modality Abdomen, Pelvis, Abdominal R ST LOS, Abdominal ARZ LOS, Abdominal FLA LOS N/A Computed Tomography 03/05/2025 1:35 PM DUPLICATING MACHINE MECHANIC Impressions 03/05/2025 1:56 PM DUPLICATING MACHINE MECHANIC Since 02/22/2025, mild interval progression of the metastatic disease in the abdomen and pelvis with increased size of multiple hepatic and serosal metastases. The scattered peritoneal and abdominal wall metastatic implants are grossly unchanged. Increased now moderate volume abdominopelvic ascites. Narrative 03/05/2025 1:56 PM DUPLICATING MACHINE MECHANIC EXAM: CT ABDOMEN PELVIS WITH IV CONTRAST [...] Final Result * Lipase (03/05/2025 1:18 PM DUPLICATING MACHINE MECHANIC) Lipase, P 16 13 - 60 U/L 03/05/2025 2: 01 PM DUPLICATING MACHINE MECHANIC CNFL Blood (Blood, Venous) 03/05/2025 1:18 PM DUPLICATING MACHINE MECHANIC 03/05/2025 1:20 PM DUPLICATING MACHINE MECHANIC us Tyesha Rose APRN C.N.P. LAB BLOOD ADD-ON Final Result Performing Organization Address [facility]/ZIP Co de Phone Number [address] [address], [address] [address] * Lactate (03/05/2025 1:18 PM DUPLICATING MACHINE MECHANIC) Lactate, P 1.1 0.5 - 2.2 mmol/L 03/05/2025 1:39 PM DUPLICATING MACHINE MECHANIC CNFL Blood (Blood, Venous) 03/05/2025 1:18 PM DUPLICATING MACHINE MECHANIC 03/05/2025 1:20 PM DUPLICATING MACHINE MECHANIC us Tyesha Rose APRN, C.N.P. LAB BLOOD NON AD D-ON Final Result Performing Organization Address [facility]/ZIP Co de Phone Number [address] [address], [place] [address] * (ABNORMAL) Comprehensive Metabolic Panel (03/05/2025 1:18 PM DUPLICATING MACHINE MECHANIC) Potassium, P 4.4 3.6 - 5.2 mmol/L 03/05/2025 2:01 PM DUPLICATING MACHINE MECHANIC CNFL Sodium, P 131(L) 135 - 145 mmol/L 03/05/2025 2:01 PM DUPLICATING MACHINE MECHANIC CNFL Chloride, P 91(L) 98 - 107 mmol/L 03/05/2025 2:01 PM DUPLICATING MACHINE MECHANIC CNFL Bicarbonate, P 24 22 - 29 mmol/L 03/05/2025 2:01 PM DUPLICATING MACHINE MECHANIC CNFL Anion Gap, P 16(H) 7 - 15 03/05/2025 2:01 PM DUPLICATING MACHINE MECHANIC CNFL BUN (Blood Urea Nitrogen), P 8 6 - 21 mg/dL 03/05/2025 2:01 PM DUPLICATING MACHINE MECHANIC CNFL Creatinine 0.56(L) 0.59 - 1.04 mg/dL 03/05/2025 2:01 PM DUPLICATING MACHINE MECHANIC CNFL Estimated GFR (eGFR) >90 >=60 mL/min/BS A 03/05/2025 2:01 PM DUPLICATING MACHINE MECHANIC CNFL Comment: Estimated GFR calculated using the 2020 CKD_EPI creatinine equation. Calcium, Total, P 9.3 8.8 - 10.2 mg/dL 03/05/2025 2:01 PM DUPLICATING MACHINE MECHANIC CNFL Glucose, P 89 70 - 140 mg/dL 03/05/2025 2:01 PM DUPLICATING MACHINE MECHANIC CNFL Protein, Total, P 6.1(L) 6.3 - 7.9 g/dL 03/05/2025 2:01 PM DUPLICATING MACHINE MECHANIC CNFL Albumin, P 3.6 3.5 - 5.0 g/dL 03/05/2025 2:01 PM DUPLICATING MACHINE MECHANIC CNFL Aspartate Aminotransferase (AST), P 27 8 - 43 U/L 03/05/2025 2:01 PM DUPLICATING MACHINE MECHANIC CNFL Alkaline Phosphatase, P 79 35 - 104 U/L 03/05/2025 2:01 PM DUPLICATING MACHINE MECHANIC CNFL Alanine Aminotransferase (ALT), P 15 7 - 45 U/L 03/05/2025 2:01 PM DUPLICATING MACHINE MECHANIC CNFL Bilirubin, Total, P 0.3 0.0 - 1.2 mg/dL 03/05/2025 2:01 PM DUPLICATING MACHINE MECHANIC CNFL Blood (Blood, Venous) 03/05/2025 1:18 PM DUPLICATING MACHINE MECHANIC 03/05/2025 1:20 PM DUPLICATING MACHINE MECHANIC us Tyesha Rose APRN, C.N.P. LAB BLOOD ADD-ON Final Result [facility] [address] [place] [phone], [facility] CNFL [facility] in [address] [address] * (ABNORMAL) CBC with Differential, Blood (03/05/2025 1:18 PM DUPLICATING MACHINE MECHANIC) Hemoglobin 12.9 11.6 - 15.0 g/dL 03/05/2025 1:25 PM DUPLICATING MACHINE MECHANIC CNFL Hematocrit 38.2 35.5 - 44.9 % 03/05/2025 1:25 PM DUPLICATING MACHINE MECHANIC CNFL Erythrocytes 4.09 3.92 - 5.13 x10(12)/L 03/05/2025 1:25 PM DUPLICATING MACHINE MECHANIC CNFL MCV 93.4 78.2 - 97.9 fL 03/05/2025 1:25 PM DUPLICATING MACHINE MECHANIC CNFL RBC Distrib Width 13.6 12.2 - 16.1 % 03/05/2025 1:25 PM DUPLICATING MACHINE MECHANIC CNFL Platelet Count 193 157 - 371 x10(9)/L 03/05/2025 1:25 PM DUPLICATING MACHINE MECHANIC CNFL Leukocytes 7.2 3.4 - 9.6 x10(9)/L 03/05/2025 1:25 PM DUPLICATING MACHINE MECHANIC CNFL Neutrophils 5.70 1.56 - 6.45 x10(9)/L 03/05/2025 1:25 PM DUPLICATING MACHINE MECHANIC CNFL Lymphocytes 0.90(L) 0.95 - 3.07 x10(9)/L 03/05/2025 1:25 PM DUPLICATING MACHINE MECHANIC CNFL Monocytes 0.52 0.26 - 0.81 x10(9)/L 03/05/2025 1:25 PM DUPLICATING MACHINE MECHANIC CNFL Eosinophils 0.04 0.03 - 0.48 x10(9)/L 03/05/2025 1:25 PM DUPLICATING MACHINE MECHANIC CNFL Basophils <0.04 0.01 - 0.08 x10(9)/L 03/05/2025 1:25 PM DUPLICATING MACHINE MECHANIC CNFL Blood (Blood, Venous) 03/05/2025 1:18 PM DUPLICATING MACHINE MECHANIC 03/05/2025 1:20 PM DUPLICATING MACHINE MECHANIC us Tyesha Rose APRN, C.N.P. LAB BLOOD ADD-ON Final Result Performing Organization Address City/State/[facility] Co de Phone Number [facility] [address] [place] [phone], [facility] CNFL [facility] in [address] [address] * Microscopic Manual (03/05/2025 12:47 PM DUPLICATING MACHINE MECHANIC) White Blood Cells 4-10 /hpf 03/05/2025 1:11 PM DUPLICATING MACHINE MECHANIC CNFL Comment: ----REFERENCE VALUE---- Males: 0-3 Females: 0-10 Unknown: 0-10 Red Blood Cells Occ-2 0 - 2 /hpf 1:11 PM DUPLICATING MACHINE MECHANIC CNFL Dysmorphic Red Blood Cells <=25 <=25 % 03/05/2025 1:11 PM DUPLICATING MACHINE MECHANIC CNFL Hyaline Casts 21-30 /lpf 03/05/2025 1:11 PM DUPLICATING MACHINE MECHANIC CNFL Squamous Cells Occ-3 /hpf 03/05/2025 1:11 PM DUPLICATING MACHINE MECHANIC CNFL Bacteria None Seen None Seen 03/05/2025 1:11 PM DUPLICATING MACHINE MECHANIC CNFL Urine 03/05/2025 12:4 7 PM DUPLICATING MACHINE MECHANIC 03/05/2025 12:47 PM DUPLICATING MACHINE MECHANIC us Tyesha Rose APRN, C.N.P. LAB URINE ORDERA BLES Final Result Performing Organization Address City/State/[facility] Co de Phone Number [facility] [address] [place] [address], [facility] CNFL [facility] in [address] [address] * (ABNORMAL) Urinalysis with Microscopic if Indicated: Urine, Midstream (03/05/2025 12:47 PM DUPLICATING MACHINE MECHANIC) Source Urine, Urine, Midstream 03/05/2025 12:47 PM DUPLICATING MACHINE MECHANIC CNFL Clarity Clear Clear 03/05/2025 12:50 PM DUPLICATING MACHINE MECHANIC CNFL Color Yellow 03/05/2025 12:50 PM DUPLICATING MACHINE MECHANIC CNFL Comment: ----REFERENCE VALUE---- Colorless Yellow Harriett Blood Negative Negative 03/05/2025 12:50 PM DUPLICATING MACHINE MECHANIC CNFL Nitrite Negative Negative 03/05/2025 12:50 PM DUPLICATING MACHINE MECHANIC CNFL Leukocyte Esterase Negative Negative 03/05/2025 12:50 PM DUPLICATING MACHINE MECHANIC CNFL Protein 30(A) mg/dL 03/05/2025 12:50 PM DUPLICATING MACHINE MECHANIC CNFL Comment: ----REFERENCE VALUE---- Negative Trace Glucose Negative Negative mg/dL 03/05/2025 12:50 PM DUPLICATING MACHINE MECHANIC CNFL Ketones, QI(U) >=80(A) Negative mg/dL 03/05/2025 12:50 PM DUPLICATING MACHINE MECHANIC CNFL Bilirubin Large(A) Negative 03/05/2025 12:50 PM DUPLICATING MACHINE MECHANIC CNFL pH 5.5 5.0 - 8.0 03/05/2025 12:50 PM DUPLICATING MACHINE MECHANIC CNFL Specific [place] >=1.030 1.001 - 1.035 03/05/2025 12:50 PM DUPLICATING MACHINE MECHANIC CNFL Urobilinogen 0.2 0.2 - 1.0 mg/dL 03/05/2025 12:50 PM DUPLICATING MACHINE MECHANIC CNFL Urine (Urine, Midstream) 03/05/2025 12:47 PM DUPLICATING MACHINE MECHANIC 03/05/2025 12:47 PM DUPLICATING MACHINE MECHANIC us Tyesha Rose APRN, C.N.P. LAB URINE ORDERA BLES Final Result Performing Organization Address City/State/[facility] Co de Phone Number [facility] [address] [place] [address], [facility] CNFL [facility] [place] [address] documented in this encounter Visit Diagnoses Diagnosis [...] For 3 doses Given 03/05/2025 1:18 PM DUPLICATING MACHINE MECHANIC 0.5 mg iohexoL 300 mg iodine/mL solution 100 mL (Omnipaque) 100 mL, intravenous, Once in imaging, contrast, Starting on Wed03/05/25 at 1313, For 1 dose Given 03/05/2025 1:38 PM DUPLICATING MACHINE MECHANIC 100 mL sodium chloride 0.9 % flush 75 mL 75 mL, intravenous, Once, On Wed03/05/25 at 1315, For 1 dose Given 03/05/2025 1:38 PM DUPLICATING MACHINE MECHANIC 75 mL sodium chloride 0.9 % injection 10 mL 10 mL, intravenous, Once, On Wed03/05/25 at 1315, For 1 dose Given 03/05/2025 1:38 PM DUPLICATING MACHINE MECHANIC 10 mL documented in this encounter Active and Recently Administered Medications Times are shown in DUPLICATING MACHINE MECHANIC. Scheduled Medication Order 03/03/2025 03/04/2025 03/05/2025 sodium [...] doses 1318 (Given - Provid er: Daryl Cabezas R.N.) iohexoL 300 mg iodine/mL solution 100 mL (Omnipaque) (COMPLETED) 100 mL, intravenous, Once in imaging, contrast, Starting on Wed03/05/25 at 1313, For 1 dose 1338 (Given - Provid er: Sathish Higginbotham(R)(CT), R.T.(R)) documented in this encounter Additional Health Concerns Infection Onset Date Last Indicated Resolved Time Protective Environment 06/02/2024 06/02/2024 documented as of this encounter Care Teams Shipping And Receiving Weigher Relationship Specialty Start Date End Date Elsewhere, Pcp PCP - General Internal Medicine 03/08/24 documented as of this encounter
--- OUTSIDE RECORDS SUMMARY | 2025-03-06 10:32 | XMS_ITS | Encounter Summary ---
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 [address] [place] [address] Phone: tel: fax: [facility] Region Referral ID Status Reason Start Date Expiration Date Visits Re quested Visits Authorized [id number] Closed 03/05/2025 06/05/2026 1 1 Encounter Details Date Type Department Care Team (Latest Contact Info) Description 03/06/2025 10:32 AM SHIRT CLOSER - 03/06/2025 11:59 PM SHIRT CLOSER Hospital Encounter Department of Gastroenterology in [address] [phone] Marquise Gill M.D. [address] [place] [phone] Secondary Malignant Neoplasm Peritoneum (HCC) (Primary Dx); Malignant Neoplasm Of Cecum (HCC); Ascites Chronic; Peritonitis Unspecified (HCC) Discharge Disposition: Home or Self Care Social History Tobacco Use Types Packs/Day Years Used Date Smoking Tobacco: Never Passive Smoke Exposure: Never Smokeless Tobacco: Never Alcohol Use Standard Drinks/Week Comments Not Currently 0 (1 standard drink = 0.6 oz pur e alcohol) Humiliation, Afraid, Rape, and Kick questionnair e [...] the money to buy more. Never true 03/07/20 25 Within the past 12 months, t he food you bought just didn't last and you didn't have money to get more. Never true 03/07/2025 PRAPARE - Transportation Answer Date Re corded In the past 12 months, has l ack of transportation kept you from medical appointments or from getting medications? No 02/24 In the past 12 months, has l ack of transportation kept you from meetings, work, or from getting things needed for daily living? No 03/07/2025 [facility] Utilities Answer Date Recorded In the past 12 months has [facility] electric, gas, oil, or water company threatened to shut off services in your home? No 03/07/2025 Housing Stability Answer Date Recorded What is your living situation today? I have a [facility] place to live 03/07/2025 Education Answer Date Recorded What is the [...] Sign Reading Time Taken Comments Blood Pressure 136/68 03/06/2025 1:30 PM SHIRT CLOSER Pulse 93 03/06/2025 1:45 PM SHIRT CLOSER Temperature 36.2 C (97.2 F) 03/06/2025 11:23 AM SHIRT CLOSER Respiratory Rate 17 03/06/2025 11:2 3 AM SHIRT CLOSER Oxygen Saturation 100% 03/06/2025 1:45 PM SHIRT CLOSER Inhaled Oxygen Concentration - - Weight 66.1 kg (145 lb 11.6 oz) 03/06/2025 2:01 PM SHIRT CLOSER post para Height - - Body Mass Index 26.65 02/23/2025 9:00 AM CDT documented in this encounter Medications at Time of Discharge acetaminophen (TYLENOL) 500 mg tablet Take 2 tablets (1,000 mg total) by mouth every 6 (six) hours as needed for pain. 06/03/2023 ascorbic acid, vitamin C, (ascorbic acid) 500 mg tablet Take 500 mg by mouth daily. celecoxib (CeleBREX) 50 mg capsule Take 50 mg by mouth 2 (two) times a day. Unsure of dose cholecalciferol (VITAMIN D3) 50 mcg (2,000 Unit) [...] morning meal. Per Patient: 10,000 with breakfast ciprofloxacin (Cipro) 500 mg tabletIndication s:Secondary Malignant Neoplasm Peritoneum (HCC),Peritoniti s Unspecified (HCC) Take 1 tablet (500 mg total) by mouth 2 (two) times a day for 5 days. 10 tablet 03/06/2025 5 loperamide (Imodium A-D) 2 mg capsule Take [...] split prior to swallowing. 300 tablet 03/09/2025 documented as of this encounter Plan of Treatment Upcoming Encounters Date Type Department Care Team (Latest Contact Info) Description 03/12/2025 11:30 AM SHIRT CLOSER Appointment Department of Gastroenterology in [address] [phone] Marquise Gill M.D. [address] [place] [phone] Kala Woo, DALIA, C.N.P., D.N.P., M.S.N. [address] [place] [phone] Discharge Disposition: Home or Self Care 03/12/2025 3:30 PM SHIRT CLOSER Appointment Department of Radiation Oncology in [place], [place] [address] [place] [phone] [place] [address] 03/13/2025 3:45 PM SHIRT CLOSER Appointment Department of Radiation Oncology in [place] [address] [place] [phone] Faith Ellis M.D. [address] [place] [phone] 03/14/2025 3:30 PM SHIRT CLOSER Appointment Department of Radiation Oncology in [place], [place] [address] [place] [phone] Faith Ellis M.D. [address] [place] [phone] 03/14/2025 3:45 PM SHIRT CLOSER Appointment Department of Radiation Oncology in [place], [place] [address] [place] [phone] Sandro Guerrero M.D. [address] [place] [phone] 03/15/2025 8:30 AM SHIRT CLOSER Lab Department of Laboratory Medicine and Pathology, [facility] in [place], [place] [address] [place] [address] Kadeem Marshall P.A.-C., M.S. [address] [place] [phone] 03/15/2025 9:40 AM SHIRT CLOSER Education Department of Oncology in [place], [place] [address] [place] [phone] Kadeem Marshall P.A.-C., M.S. [address] [place] [phone] 03/15/2025 10:30 AM SHIRT CLOSER Infusion Department of Oncology in [place], [place] [address] [place] [phone] Kadeem Marshall P.A.-C., M.S. [address] [place] [phone] 03/15/2025 2:25 PM SHIRT CLOSER Appointment Department of Cardiovascular Diseases in [place], [place] [address] [place] [phone] Kadeem Marshall P.A.-C., M.S. [address] [place] [phone] Discharge Disposition: Home or Self Care 03/15/2025 3:30 PM SHIRT CLOSER Appointment Department of Radiation Oncology in [place], [place] [address] [place] [phone] Faith Ellis M.D. [address] [place] [phone] 03/16/2025 3:30 PM SHIRT CLOSER Appointment Department of Radiation Oncology in [place], [place] [address] [place] [phone] Faith Ellis M.D. [address] [place] [phone] 04/05/2025 8:30 AM SHIRT CLOSER Lab Department of Oncology in [address] [phone] Kadeem Marshall P.A.-C., M.S. [address] [place] [phone] 04/05/2025 10:40 AM SHIRT CLOSER Office Visit Department of Oncology in [address] [phone] Kadeem Marshall P.A.-C., M.S. [address] [place] [phone] 04/05/2025 1:00 PM SHIRT CLOSER Infusion Department of Oncology in [address] [phone] Kadeem Marshall P.A.-C., M.S. [address] [place] [phone] 04/06/2025 10:00 AM SHIRT CLOSER Comprehensive Visit Department of Palliative Care in [place], [place] [address] [place] [address] Ana Rosa Hurtado APRN, C.N.PAlpesh, D.N.P. [address] [place] [phone] 04/30/2025 7:15 AM SHIRT CLOSER Lab Department of Oncology in [place], [place] [address] [place] [phone] Kadeem Marshall P.A.-C., M.S. [address] [place] [phone] 04/30/2025 9:20 AM SHIRT CLOSER Office Visit Department of Oncology in [place], [place] [address] [place] [phone] Kadeem Marshall P.A.-C., M.S. [address] [place] [phone] 04/30/2025 2:30 PM SHIRT CLOSER Infusion Department of Oncology in [place], [place] [address] [place] [phone] Kadeem Marshall P.A.-C., M.S. [address] [place] [phone] 05/21/2025 11:00 AM SHIRT CLOSER Lab Department of Oncology in [place], [place] [address] [place] [phone] Kadeem Marshall P.A.-C., M.S. [address] [place] [phone] 05/21/2025 1:20 PM SHIRT CLOSER Office Visit Department of Oncology in [place], [place] [address] [place] [phone] Kadeem Marshall P.A.-C., M.S. [address] [place] [phone] 05/21/2025 2:00 PM SHIRT CLOSER Infusion Department of Oncology in [place], [place] [address] [place] [phone] Kadeem Marshall P.A.-C., M.S. 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 PARACENTESIS Routine 03/06/2025 12:14 PM SHIRT CLOSER 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 - Repeat paracentesis PRN. - Labs have returned with WBC 945 with 41% neutrophils, which does meet criteria for bacterial peritonitis, although it is likely debatable given her known peritonitoneal carcinomatosis. Will treat with cipro/metronidazole for 5 days. Findings: With the patient in a semi-sitting position, the procedure site was sterilely prepped using DuraPrep and draped in the usual fashion. 10 mL of 1% lidocaine with epinephrine was infiltrated into the skin and subcutaneous tissues. Using a left lower quadrant approach, a small stab incision was made with a disposable blade and a 3.25 inch 18 gauge paracentesis needle with overlying catheter was inserted into the peritoneal cavity under ultrasound guidance. Ultrasound images were not saved. Aspiration demonstrated good return of peritoneal fluid. One pass was made. Fluid sent for cytology, cell count and diff, albumin and total protein. 3.0 liters of serosanguinous fluid was withdrawn using vacuum bottles. The use of direct ultrasound visualization of the needle was required (rather than a non-guided injection) to ensure accurate injection delivery and to maximize clinical benefit beyond that obtained with a non-guided injection. No images were saved for this paracentesis. Medicines: 1% Lidocaine 10 mL SubQ; one liter Lactated Ringer's as patient reports not having intake in the Complications: No immediate complications. Estimated blood loss: Minimal. Procedure Details: After obtaining informed consent, the procedure was performed. Throughout the procedure, the patient's blood pressure, pulse, and oxygen saturations were monitored continuously.The paracentesis was accomplished without difficulty. The patient tolerated the procedure. Marquise Gill, 03/06/2025 2:20:02 PM This report has been signed electronically. Number of Addenda: 0 Note Initiated On: 03/06/2025 12:14 PM us Marquise Gill M.D. GI PROCEDURE ORDERABLES Fi nal Result * (ABNORMAL) Cytology Non-HUMAN RESOURCES HR REPRESENTATIVE (03/06/2025 11:50 AM SHIRT CLOSER) (A) 03/07/2025 10:27 AM SHIRT CLOSER ECLR Report electronically signed by Rod Bailey M.D. I verify that I have examined all relevant slides/materi als for the specimen(s) and rendered or confirmed the diagnosis. (A) 03/07/2025 10:27 AM SHIRT CLOSER ECLR Gross Description Received 44 cc of blood tinged fluid without fixative.(A) 03/07/2025 10:27 AM SHIRT CLOSER ECLR Source A. Peritoneal, fluid(A) 03/07/2025 10:27 AM SHIRT CLOSER ECLR Interpretation A. Peritoneal, fluid (cytospin/manuel l block): Positive for malignancy. Metastatic adenocarcinom a. Digital imaging was used in the diagnostic assessment of this case, cell block A. (A) 03/07/2025 10:27 AM SHIRT CLOSER ECLR Fluid 03/06/2025 11:5 0 AM SHIRT CLOSER 03/06/2025 3:10 PM SHIRT CLOSER us Marquise Gill M.D. LAB SURG PATH ORDERABLES F inal Result [facility] [address] [place] [phone], [facility] ECLR [address] [phone] * Protein, Total, Body Fluid (03/06/2025 11:50 AM SHIRT CLOSER) Protein, Total, BF 4.1 See Comment g/dL 03/06/2025 4:08 PM SHIRT CLOSER ECLR Comment: ----ADDITIONAL INFORMATION---- A pleural fluid total protein to serum total protein ratio >0.5 is most consistent with exudative effusion. A peritoneal fluid total protein > 2.5 g/dL in patients with a high serum ascites albumin gradient can be caused by heart failure. A peritoneal fluid total protein > 1.0 g/dL helps to differentiate secondary from spontaneous bacterial peritonitis in conjunction with other laboratory, imaging, and clinical findings. All other fluids refer to www.[employer] for further interpretive information. This test has been modified from the nuclear plant technical advisor's instructions. Its performance characteristics were determined by [facility] in a manner consistent with CLIA requirements. This test has not been cleared or approved by the U.S. Food and Drug Administration. Fluid Type, Protein, Total PERITONEAL 03/06/2025 4:07 PM SHIRT CLOSER ECLR Fluid (Peritoneal Fluid) 03/06/2025 11:50 AM SHIRT CLOSER 03/06/2025 3:11 PM SHIRT CLOSER us Marquise Gill M.D. LAB BODY FLUIDS AND STOOLS ORDERABLES Final Result [facility] [address] [place] [address], [facility] ECLR [facility] [place] [address] * Albumin, Body Fluid (03/06/2025 11:50 AM SHIRT CLOSER) Albumin BF 2.9 See Comment g/dL 03/06/2025 4:09 PM SHIRT CLOSER ECLR Comment: ----ADDITIONAL INFORMATION---- Peritoneal fluid albumin is used to calculate the serum-ascites albumin gradient (SAAG). Values greater than or equal to 1.1 g/dL suggest portal hypertension. Pleural fluid albumin may be used to calculate a serum-effusion albumin gradient. Values greater than 1.2 g/dL are most consistent with a transudative process. All other fluids refer to www.[employer] for further interpretive information. This test has been modified from the nuclear plant technical advisor's instructions. Its performance characteristics were determined by [facility] in a manner consistent with CLIA requirements. This test has not been cleared or approved by the U.S. Food and Drug Administration. Fluid Type, Albumin PERITONEAL 03/06/2025 4:07 PM SHIRT CLOSER ECLR Fluid (Peritoneal Fluid) 03/06/2025 11:50 AM SHIRT CLOSER 03/06/2025 3:11 PM SHIRT CLOSER Marquise Gill M.D. LAB BODY FLUIDS AND STOOLS ORDERABLES Final Result [facility] [address] [place] [phone], [facility] ECLR [facility] [place] [address] * Cell Count and Differential, Body Fluid (03/06/2025 11:50 AM SHIRT CLOSER) Fluid Type Peritoneal /Paracente sis 03/06/2025 12:32 PM SHIRT CLOSER RDWG Gross Appearance Bloody 03/06/20 25 12:32 PM SHIRT CLOSER RDWG Total Nucleated Cells 945 /mcL 03/06/2025 12:32 PM SHIRT CLOSER RDWG Comment: ----REFERENCE VALUE---- Synovial: <150 Peritoneal: <500 Pleural: <500 Pericardial: <500 Neutrophils 41 % 03/06/2025 1:13 PM SHIRT CLOSER RDWG Comment: ----REFERENCE VALUE---- Synovial: <25% Peritoneal: <25% Pleural: <25% Pericardial: <25% Lymphocytes 17 Synovial: <75% % 03/06/2025 1:13 PM SHIRT CLOSER RDWG Monocytes/Macrop hages 42 Synovial: <70% % 03/06/2025 1:13 PM SHIRT CLOSER RDWG Reviewed by [email or web address] 03/06/2025 1:13 PM SHIRT CLOSER RDWG Fluid (Peritoneal Fluid) 03/06/2025 11:50 AM SHIRT CLOSER 03/06/2025 12:13 PM SHIRT CLOSER Marquise Gill M.D. LAB BODY FLUIDS AND STOOLS ORDERABLES Final Result [facility] [address] [place] [address], [facility] RDWG 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 Peritonitis Unspecified (HCC) documented in this encounter Administered Medications Inactive Administered Medications - up to 3 most recent administrations Medication Order MAR Action Action Date Dose Rate Site Lactated Ringer's bolus 1,000 mL 1,000 mL, intravenous, at 1,000 mL/hr, Administer over 1 Hours, Once, On Wed03/06/25 at 1245, For 1 dose New Bag 03/06/2025 12:51 PM SHIRT CLOSER 1,000 mL 1000 mL/hr documented in this encounter Additional Health Concerns Infection Onset Date Last Indicated Resolved Time Protective Environment 06/02/2024 06/02/2024 documented as of this encounter Care Teams Scientific Systems Analyst Relationship Specialty Start Date End Date Elsewhere, Pcp PCP - General Internal Medicine 03/08/24 documented as of this encounter
--- OUTSIDE RECORDS SUMMARY | 2025-03-07 12:45 | XMS_ITS | Encounter Summary ---
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 [address] [place] [address] Phone: tel: fax: [facility] Referral ID Status Reason Start Date Expiration Date V isits Requested Visits Authorized [id number] Authorized 03/07/2025 03/07/2026 5 5 ICE LEARNING COORDINATOR * Outpatient (Routine) - Closed Specialty Diagnoses / Procedures Referred By Edgardo banks Referred To Contact Radiation Oncology Diagnoses Malignant Neoplasm Of Cecum (HCC) Abdominal Pain Kadeem Marshall P.A.-C., M.S. [address] [place] [address] Phone: tel: fax: [facility] Referral ID Status Reason Start Date Expiration Date Visits Re quested Visits Authorized [id number] Closed 03/01/2025 08/31/2026 1 1 Scheduling Instructions [place] please ICE LEARNING COORDINATOR Reason for Visit * Outpatient (Routine) - Closed Specialty Diagnoses / Procedures Referred By Contac t Referred To Contact Radiation Oncology Diagnoses Malignant Neoplasm Of Cecum (HCC) Abdominal Pain Kadeem Marshall P.A.-C., M.S. [address] [place] [address] Phone: tel: fax: [facility] Region Referral ID Status Reason Start Date Expiration Date Visits Re quested Visits Authorized [id number] Closed 03/01/2025 08/31/2026 1 1 Encounter Details Date Type Department Care Team (Latest Contact Info) Description 03/07/2025 12:45 PM SERVICE LEARNING COORDINATOR - 03/07/2025 1:42 PM SERVICE LEARNING COORDINATOR Hospital Encounter Department of Radiation Oncology in [place], [place] [address] [place] [phone] Faith Ellis M.D. [address] [place] [phone] Malignant Neoplasm Of Cecum (HCC) (Primary Dx); Secondary Malignant Neoplasm Peritoneum (HCC); Secondary Malignant Neoplasm Soft Tissue (HCC) Social History Tobacco Use Types Packs/Day [...] things needed for daily living? No 03/07/2025 [facility] Utilities Answer Date Recorded In the past 12 months has [employer], gas, oil, or water company threatened to shut off services in your home? No 03/07/2025 Housing Stability Answer Date Recorded What is your living situation today? I [facility] a [facility] place to live 03/07/2025 Education Answer Date [...] Sign Reading Time Taken Comments Blood Pressure 141/85 03/07/2025 12:53 PM SERVICE LEARNING COORDINATOR Pulse 134 03/07/2025 12:53 PM SERVICE LEARNING COORDINATOR Temperature 36.7 C (98 F) 03/07/2025 12:53 PM SERVICE LEARNING COORDINATOR Respiratory Rate - - Oxygen Saturation - - Inhaled Oxygen Concentration - - Weight 65.6 kg (144 lb 10 oz) 03/07/2025 12:53 P M SERVICE LEARNING COORDINATOR Height - - Body Mass Index 26.44 02/23/2025 9:00 AM CDT documented in this [...] day for 5 days. 10 tablet 03/06/2025 loperamide (Imodium A-D) 2 mg capsule Take [...] 03/09/2025 5 documented as of this encounter Consult Notes * Agatha Mathew APRN, C.N.P., M.S.N. - 03/07/2025 1:00 PM CST RADIATION ONCOLOGY CONSULTATION REQUESTING PROVIDER Kadeem Marshall P.A.-C., M.S. SUBJECTIVE REASON FOR CONSULT 1. Malignant Neoplasm Of Cecum (HCC) HISTORY OF PRESENT ILLNESS Ms. Hayley Unger is a 64-year-old female from [place], [place] who is seen for discussion regarding the role of palliative radiotherapy in the management of painful abdominal lesion in the setting of metastatic colon cancer. ONCOLOGIC HISTORY IS FOLLOWS: Oncology History Malignant Neoplasm Of Cecum (HCC) 07/20/2022 Initial Diagnosis Malignant Neoplasm Of Cecum (HCC) On July 03, 2022, she had a colonoscopy with apparently good prep revealing a cecal adenocarcinoma(reported elsewhere as being high-grade) and proficient in mismatch repair enzyme expression. Thereis no family history of colon cancer or other [place]-associated cancers. Patient is status post remote . [facility] pathology review Colon, cecum, mass, biopsy ([id number]; 07/03/2022): Invasive moderately- adenocarcinoma, pMMR. 07/30/2022 Surgery and Procedures ROBOTIC-ASSISTED COLECTOMY RIGHT WITH ANASTOMOSIS. Histologic Type: Adenocarcinoma Histologic Grade: G2 pT Category: pT3 pN Category: pN2a 07/30/2022 Genetic Testing and Tumor Genotyping 07/30/22 [facility] CRC Panel CINDY/PORSHA wt NAIF 10/21/2022 Clinical [...] fully negative panel); CustomNext- Cancer panel through [facility]. 2024 Surgery and Procedures percutaneous microwave ablation of 4 liver lesions complicated by right pneumothorax and chest tubeplacement 05/2024 - 02/[address] scan on 05/28/2024 showed [...] alterations (report scanned in the media tab). 12/2024 Other Received some thermofield therapy with a holistic provider. Complicated by a wound in her left lower abdomen. 02/22/[address] chest abdomen and pelvis IMPRESSION: Metastatic disease progression since CT 11/30/2024 with interval enlargement of multiple pulmonary metastases, hepatic metastases, peritoneal and abdominal wall metastatic implants, with increased small volume ascites. 03/05/2025 Critical Imaging Patient evaluated in the emergency room for abdominal pain. Repeat CT abdomen and pelvis demonstrates Since 02/22/2025, mild interval progression of the metastatic disease in the abdomen and pelvis with increased size of multiple hepatic and serosal metastases. The scattered peritoneal and abdominal wall metastatic implants are grossly unchanged. Increased now moderate volume abdominopelvic ascites. 03/06/2025 Surgery and Procedures Paracentesis scheduled 03/15/2025 - Chemotherapy Tucatinib / Trastuzumab Start Date: 03/15/2025 (Planned) Secondary Malignant Neoplasm Peritoneum (HCC) 10/22/2023 - 03/31/2024 Chemotherapy FOLFIRI + Bevacizumab x 11 cycles, bevacizumab was dc'ed in 03/19 for HTN 03/09/2024 Genetic Testing and Tumor Genotyping Germline genetic testing in 2022 with variant downgrade in 2023 (now fully negative panel); CustomNext- Cancer panel through [facility]. 05/2024 - 02/[address] scan on 05/28/2024 showed disease progression so she restarted FOLFIRI/bevacizumab. Irinotecan was omitted in June of 2024 for toxicities. She was again found to have disease progression in September of 2024 and was escalated to FOLFIRI (20% dose reduction of Irinotecan). 03/12/2025 - Radiation Therapy Radiation Therapy Treatment Details (Noted on 03/06/2025) Site: Unknown Abdominal wall Technique: No technique specified Goal: No goal specified Planned Treatment Start Date: 03/12/2025 Ms. Unger is seen in the accompaniment of her sister, Esthela. She reports to be feeling exhausted. She was evaluated in the emergency room on 03/05/2025 for abdominal pain, vomiting x3 days, abdominal bloating. Pain was accompanied by sensation of pressure in her abdomen and back, exacerbated by eating. For her pain, she had been using Celecoxib, Tylenol, and oxycodone, but generally likes to avoid taking any medications as she indicates poor tolerance. She underwent paracentesis yesterday in his currently being treated for a bacterial peritonitis with Cipro/metronidazole for 5 days. She reports resolution of the abdominal pressure following the paracentesis, and now just an abdominal sorene ss. She also describes esophageal burning from the vomiting she had been experiencing. She is back to eating a soft diet. She has left lower quadrant/groin abdominal wound present from a procedure performed in December with a holistic provider. She has been seeing a wound clinic at the [facility]. The areas currently dressed and she feels that the areas getting smaller. She describes that superior and laterally to this abdominal wound, that she has palpable masses in her abdominal wall with pain that is described as burning and soreness. She currently rates her pain at a 7/10. She has not taken anything for pain over the last couple of days. Current systemic therapy: Tucatinib/Trastuzumab planned starting 03/15/2025 She denies a prior history of radiotherapy. No implanted medical devices MEDICAL HISTORY Medical History[1] SURGICAL HISTORY Surgical History[2] SOCIAL HISTORY she reports that she has never smoked. She has never been exposed to tobacco smoke. She has never used smokeless tobacco. She reports that she does not currently use alcohol. She reports that she does not use drugs. FAMILY HISTORY Family History[3] OBJECTIVE PHYSICAL EXAMINATION Gen: Alert and oriented woman in no acute distress. ECOG 1 Skin/Abdomen: She has a 3 cm x 3 cm open wound to the left lower quadrant near the groin. Superior and lateral to this, she has palpable abdominal wall masses that are tender to palpation. There were no vitals taken for this visit. Pain assessment: 11/02; Location:Abdomen DIAGNOSTICS EXAM: CT ABDOMEN PELVIS WITH IV CONTRAST 03/05/2025 COMPARISON: CT abdomen/pelvis with IV contrast 02/22/2025 IMPRESSION: Since 02/22/2025, mild interval progression of the metastatic disease in the abdomen and pelvis with increased size of multiple hepatic and serosal metastases. The scattered peritoneal and abdominal wall metastatic implants are grossly unchanged. Increased now moderate volume abdominopelvic ascites. ASSESSMENT / PLAN #1 Metastatic colon cancer (NAIF, pT3N2, CINDY/PORSHA wild type, HER2 Galina gene amplification) Ms. Unger is a 64 y.o., female with a history of stage III cecal colon adenocarcinoma s/p initial surgical resection 07/30/2022. Postoperative CT scans revealed new peritoneal nodules and biopsy showed inconclusive findings. Guardant Reveal detected positive ctDNA. She received 6 cycles of FOLFOX between 10/2022-03/2023 and treatment was complicated by significant fatigue, mouth sores, nausea, and cold sensitivity. She underwent debulking surgery and HIPEC on 05/27/23 (PCI 6 and CC-0). In 08/2023, She was admitted for [...] to proceed with liver ablation given side eff ects of chemotherapy. Restaging CT scan on 05/28/2024 showed disease progression so she restarted FOLFIRI/bevacizumab. Irinotecan was omitted in June of 2024 for toxicities. She was again found to have disease progression in September of 2024 and was escalated to FOLFIRI (20% dose reduction of Irinotecan). Unfortunately, recent CT imaging has shown disease progression with interval enlargement of multiple pulmonary metastases, hepatic metastases, peritoneal and abdominal wall metastatic implants, as well as an increase in ascites. She had missed a chemotherapy infusion due to shingles and unfortunately, tolerated FOLFIRI quite poorly despite dose reductions. CEA has increased as well. Alo Marshall PA-C recommended switching to a new line of therapy. As NGS in January identified a HER2 amplification. As such, plans are in place for initialing treatment with Herceptin at reduced dose with Tucatinib. She is referred for palliative radiation therapy to painful abdominal wall masses. These are superior and lateral to the very small left lower quadrant abdominal wound. We discussed the role of radiation for palliation of pain. Would envision a course of 5 daily fractions. We discussed the process of CT simulation, treatment planning as well as the treatment process itself. She is scheduled for CT simulation later today with anticipated start of treatment on 03/12/2025. She is aware of our teamapproach to care as well as weekly management visits. We discussed possible acute treatment relatedtoxicities, including, but not limited to that of fatigue, radiation dermatitis and possibility of loose stools. We discussed the role of Palliative Medicine in symptom management alongside her medical oncology and radiation oncology team. She was agreeable to this approach and we will assure this is being arranged. Patient and her sister had time further questions to be addressed they know to reach out to our team with any questions or concerns Agatha Mathew APRN, Lacie., M.S.N. 03/06/2025 3:49 PM SERVICE LEARNING COORDINATOR [1] Past Medical History: Diagnosis Date Adverse Reaction Anesthetic Personal History Major headache after, from dehydration Gastroesophageal Reflux Disease NOS 2018 Headache Unspecified After chemo Hypertension Essential Primary Liver Disease March 2024 Malignant Neoplasm Of Colon Adenocarcinoma (HCC) 06/2022 Neuropathy Peripheral Polyp Colon 2016 Sickness Motion Personal History Therapy Steroid Systemic Personal History [2] Past Surgical History: Procedure Laterality Date BLOCK - TRANSVERSUS ABDOMINIS PLANE (TAP) Bilateral 07/30/2022 Procedure: BLOCK - TRANSVERSUS ABDOMINIS PLANE; Surgeon: Marquise Meeks M.B., Ch.B., M.P.H.; Location: [facility] ROEI OR BLOCK - TRANSVERSUS ABDOMINIS PLANE [...] ROEI OR SALPINGECTOMY 2010 TOTAL HYSTERECTOMY 2010 [3] Family History Problem Relation Name Age of Onset Other (Psoriasis) Son Leo Fan 15 Asthma Son Lazaro Kwon 8 Thyroid disease Mother Anisa Unger Hypothyroidism Skin cancer Father Negrito Unger on face Colon cancer Neg Hx Hypertension Mother Anisa Unger Other (Lymphadema) Mother Anisa Unger 90 Prostate cancer Father Negrito Unger he beat it. Cosigned by Faith Ellis M.D. at 03/07/2025 3:32 PM SERVICE LEARNING COORDINATOR ICE LEARNING COORDINATOR ICE LEARNING COORDINATOR Associated attestation - Faith Ellis M.D. - 03/07/2025 3:32 PM SERVICE LEARNING COORDINATOR RADIATION ONCOLOGY CONSULT I saw and evaluated the patient and participated in the parekh portions of the service. I reviewed thedocumentation of Ms. Agatha MathewDALIA and agree with the findings and plan. Please see Ms. Mathew detailed note for the patient's initial presentation and work-up. Briefly, is a very pleasant 64 year old female with metastatic colo-rectal carcinoma who presents to discuss if palliative radiation therapy could help her with her abdominal pain. She has had multiplecourses of chemotherapy and is progressing. She was recently hospitalized and had a paracentesis yesterday that helped with her bloating and nausea, but she is still having pain along her abdominal wall masses. The thermal injury is healing and is now about quarter size. I have reviewed her imaging, operative and pathology reports. On exam, she appears tired, but well nourished and in no distress. She does have several left abdominal masses that are tender to palpation and easily palpable. One is along the midline. No skin involvement from the lesions. She has about a 2cm open circular wound in the left lower quadrant skin that has a dressing over it. We discussed the findings above and below in this note with the patient and her sister. We discussed her treatment alternatives. I understand that she will be starting HER2 directed therapy soon. I think we can offer palliative EBRT to her abdominal wall masses. I will utilize IMRT to treat all of the lesions at the same time and will stay off the wound. We discussed the rationale, risks, side effects and palliative goals of radiation therapy. We discussed the acute as well as prison risks, including, but not limited to fatigue, skin erythema, bowel changes (we will try to minimize her bowel exposure), and small risks for non-healing of her wound. They understood and their questions were answered. She wished to proceed with treatment. We tentatively plan on delivering 2500 cGy in 5 fractions starting Wednesday, March 12, 2025. I had her meetDrAlpesh Guerrero who she will see for her weekly on treatment visit as I am away next week. My thanks to Mr. Kadeem Marshall PA-C and Drs. Segura and Codey for the opportunity to participate in this patient's care. EDUCATION Ready to learn, no apparent learning barriers were identified; learning preferences include listening. Explained diagnosis and treatment plan; patient expressed understanding of the content. CONSENT Discussed the risks, benefits, alternatives, and the necessity of other members of the healthcare team participating in the procedure. All questions answered and consent given. DIAGNOSIS #1 Metastatic colon cancer (NAIF, pT3N2, CINDY/PORSHA wild type, HER2 Galina gene amplification) Signed by: Faith Ellis M.D. 03/07/2025 documented in this encounter Miscellaneous Notes * Addendum Note - Faith Ellis M.D. - 03/07/2025 1:00 PM CSTEncounter addended by: Faith Ellis M.D. on: 03/07/2025 7:54 PM Actions taken: Visit diagnoses modified, Order list changed, Diagnosis association updated ICE LEARNING COORDINATOR documented in this encounter Plan of Treatment Upcoming Encounters Date Type Department Care Team (Latest Contact Info) Description 03/12/2025 11:30 AM SERVICE LEARNING COORDINATOR Appointment Department of Gastroenterology in [address] [phone] Marquise Gill M.D. [address] [place] [phone] Kala Woo APRN, C.N.P., D.N.P., M.S.N. [address] [place] [phone] Discharge Disposition: Home or Self Care 03/12/2025 3:30 PM SERVICE LEARNING COORDINATOR Appointment Department of Radiation Oncology in [address] [phone] Faith Ellis M.D. [address] [place] [phone] 03/13/2025 3:45 PM SERVICE LEARNING COORDINATOR Appointment Department of Radiation Oncology in [place], [place] [address] [place] [phone] Faiht Ellis M.D. [address] [place] [phone] 03/14/2025 3:30 PM SERVICE LEARNING COORDINATOR Appointment Department of Radiation Oncology in [place], [place] [address] [place] [phone] Faith Ellis M.D. [address] [place] [address] 03/14/2025 3:45 PM SERVICE LEARNING COORDINATOR Appointment Department of Radiation Oncology in [place], [place] [address] [place] [phone] Sandro Guerrero M.D. [address] [place] [address] 03/15/2025 8:30 AM SERVICE LEARNING COORDINATOR Lab Department of Laboratory Medicine and Pathology, [facility], in [place], [place] [address] [place] [phone] Kadeem Marshall P.A.-C., M.S. [address] [place] [phone] 03/15/2025 9:40 AM SERVICE LEARNING COORDINATOR Education Department of Oncology in [place], [place] [address] [place] [address] Kadeem Marshall P.A.-C., M.S. [address] [place] [phone] 03/15/2025 10:30 AM SERVICE LEARNING COORDINATOR Infusion Department of Oncology in [place], [place] [address] [place] [phone] Kadeem Marshall P.A.-C., M.S. [address] [place] [phone] 03/15/2025 2:25 PM SERVICE LEARNING COORDINATOR Appointment Department of Cardiovascular Diseases in [place], [place] [address] [place] [phone] Kadeem Marshall P.A.-C., M.S. [address] [place] [phone] Discharge Disposition: Home or Self Care 03/15/2025 3:30 PM SERVICE LEARNING COORDINATOR Appointment Department of Radiation Oncology in [address] [phone] Faith Ellis M.D. [address] [place] [phone] 03/16/2025 3:30 PM SERVICE LEARNING COORDINATOR Appointment Department of Radiation Oncology in [address] [phone] Faith Ellis M.D. [address] [place] [phone] 04/05/2025 8:30 AM SERVICE LEARNING COORDINATOR Lab Department of Oncology in [place], [place] [address] [place] [phone] Kadeem Marshall P.A.-C., M.S. [address] [place] [phone] 04/05/2025 10:40 AM SERVICE LEARNING COORDINATOR Office Visit Department of Oncology in [place], [place] [address] [place] [phone] Kadeem Marshall P.A.-C., M.S. [address] [place] [phone] 04/05/2025 1:00 PM SERVICE LEARNING COORDINATOR Infusion Department of Oncology in [place], [place] [address] [place] [phone] Kadeem Marshall P.A.-C., M.S. [address] [place] [phone] 04/06/2025 10:00 AM SERVICE LEARNING COORDINATOR Comprehensive Visit Department of Palliative Care in [place], [place] [address] [place] [phone] Ana Rosa Hurtado APRN, C.N.P., D.N.P. [address] [place] [phone] 04/30/2025 7:15 AM SERVICE LEARNING COORDINATOR Lab Department of Oncology in [place], [place] [address] [place] [phone] Kadeem Marshall P.A.-C., M.S. [address] [place] [phone] 04/30/2025 9:20 AM SERVICE LEARNING COORDINATOR Office Visit Department of Oncology in [place], [place] [address] [place] [phone] Kadeem Marshall P.A.-C., M.S. [address] [place] [phone] 04/30/2025 2:30 PM SERVICE LEARNING COORDINATOR Infusion Department of Oncology in [place], [place] [address] [place] [phone] Kadeem Marshall P.A.-C., M.S. [address] [place] [phone] 05/21/2025 11:00 AM SERVICE LEARNING COORDINATOR Lab Department of Oncology in [place], [place] [address] [place] [phone] Kadeem Marshall P.A.-C., M.S. [address] [place] [phone] 05/21/2025 1:20 PM SERVICE LEARNING COORDINATOR Office Visit Department of Oncology in [place], [place] [address] [place] [phone] Kadeem Marshall P.A.-C., M.S. [address] [place] [phone] 05/21/2025 2:00 PM SERVICE LEARNING COORDINATOR Infusion Department of Oncology in [place], [place] [address] [place] [phone] Kadeem Marshall P.A.-C., M.S. 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
--- OUTSIDE RECORDS SUMMARY | 2025-03-07 13:43 | XMS_ITS | Encounter Summary ---
Author Organization [facility] Address [address] [place] [address] Care Team Providers Care Stiff Leg Derrick Operator Name Role Phone Elsewhere, Pcp Primary Care Provider Unavailabl e Reason for Referral * Radiation Therapy (Routine) - Authorized Specialty Diagnoses / Procedures Referred By Edgardo banks Referred To Contact Diagnoses Secondary Malignant Neoplasm Peritoneum (HCC) Procedures Initial Rad Onc Treatment Planning CT Simulation PA 3D RAD THER ISODOSE FIELD PLAN Faith Ly M.D. [address] [place] [address] Phone: tel: fax: [facility] Radiation Oncology at [place] [address] [place] [address] Referral ID Status Reason Start Date Expiration Date V isits Requested Visits Authorized [id number] Authorized 03/07/2025 03/07/2026 2 2 EMATICS EDUCATION PROFESSOR Reason for Visit * Radiation Therapy (Routine) - Authorized Specialty Diagnoses / Procedures Referred By Edgardo banks Referred To Contact Diagnoses Secondary Malignant Neoplasm Peritoneum (HCC) Procedures Initial Rad Onc Treatment Planning CT Simulation PA 3D RAD THER ISODOSE FIELD PLAN Faith Ly M.D. [address] [place] [address] Phone: tel: fax: T Radiation Oncology at [place] [address] [place] [address] Referral ID Status Reason Start Date Expiration Date V isits Requested Visits Authorized [id number] Authorized 03/07/2025 03/07/2026 2 2 Encounter Details Date Type Department Care Team (Latest Contact Info) Description 03/07/2025 1:43 PM MATHEMATICS EDUCATION PROFESSOR - 03/07/2025 3:41 PM MATHEMATICS EDUCATION PROFESSOR Hospital Encounter Department of Radiation Oncology in [place], [place] [address] [place] [phone] Faith Ellis M.D. [address] [place] [address] Secondary Malignant Neoplasm Peritoneum (HCC) Social History [...] things needed for daily living? No 03/07/2025 [facility] Utilities Answer Date Recorded In the past 12 months has th e electric, gas, oil, or water company threatened to shut off services in your home? No 03/07/2025 Housing Stability Answer Date Recorded What is your living situation today? I have a [facility] place to live 03/07/2025 Education Answer [...] 03/09/2025 5 documented as of this encounter Procedure Notes [...] planning. CT images were transferred to the [employer] treatment planning system, after a reference isocenter was determined and marked. Segmentation and treatment planning will take place prior to treatment delivery. Patient set up and imaging was appropriate and completed without incident. Planner Intern use:No Cosigned by Faith Ellis M.D. at 03/07/2025 3:41 PM MATHEMATICS EDUCATION PROFESSOR EMATICS EDUCATION PROFESSOR EMATICS EDUCATION PROFESSOR Associated attestation - Faith Ellis M.D. - 03/07/2025 3:41 PM MATHEMATICS EDUCATION PROFESSOR I was present during all critical and parekh portions of the procedure(s) and/or immediately availableto furnish services the entire duration. See note for details. documented in this encounter Plan of Treatment Upcoming Encounters Date Type Department Care Team (Latest Contact Info) Description 03/12/2025 11:30 AM MATHEMATICS EDUCATION PROFESSOR Appointment Department of Gastroenterology in [address] [address] Marquise Gill M.D. [address] [place] [phone] Kala Woo APRN, C.N.P., D.N.P., M.S.N. [address] [place] [phone] Discharge Disposition: Home or Self Care 03/12/2025 3:30 PM MATHEMATICS EDUCATION PROFESSOR Appointment Department of Radiation Oncology in [place], [place] [address] [place] [address] Faith Ellis M.D. [address] [place] [phone] 03/13/2025 3:45 PM MATHEMATICS EDUCATION PROFESSOR Appointment Department of Radiation Oncology in [address] [address] Faith Ellis M.D. [address] [place] [phone] 03/14/2025 3:30 PM MATHEMATICS EDUCATION PROFESSOR Appointment Department of Radiation Oncology in [place], [place] [address] [place] [phone] Faith Ellis M.D. [address] [place] [phone] 03/14/2025 3:45 PM MATHEMATICS EDUCATION PROFESSOR Appointment Department of Radiation Oncology in [place] [address] [place] [address] Sandro Guerrero M.[place]. [facility] [place] [address] 03/15/2025 8:30 AM MATHEMATICS EDUCATION PROFESSOR Lab Department of Laboratory Medicine and Pathology, [facility], in [place], [place] [address] [place] [phone] Kadeem Marshall P.A.-C., M.S. [address] [place] [phone] 03/15/2025 9:40 AM MATHEMATICS EDUCATION PROFESSOR Education Department of Oncology in [place], [place] [address] [place] [phone] aKdeem Marshall P.A.-C., M.S. [address] [place] [phone] 03/15/2025 10:30 AM MATHEMATICS EDUCATION PROFESSOR Infusion Department of Oncology in [place], [place] [address] [place] [phone] Kadeem Marshall P.A.-C., M.S. [address] [place] [phone] 03/15/2025 2:25 PM MATHEMATICS EDUCATION PROFESSOR Appointment Department of Cardiovascular Diseases in [place], [place] [address] [place] [phone] Kadeem Marshall P.A.-C., M.S. [address] [place] [phone] Discharge Disposition: Home or Self Care 03/15/2025 3:30 PM MATHEMATICS EDUCATION PROFESSOR Appointment Department of Radiation Oncology in [address] [phone] Faith Ellis M.D. [address] [place] [phone] 03/16/2025 3:30 PM MATHEMATICS EDUCATION PROFESSOR Appointment Department of Radiation Oncology in [address] [phone] Faith Ellis M.D. [address] [place] [phone] 04/05/2025 8:30 AM MATHEMATICS EDUCATION PROFESSOR Lab Department of Oncology in [place], [place] [address] [place] [phone] Kadeem Marshall P.A.-C., M.S. [address] [place] [phone] 04/05/2025 10:40 AM MATHEMATICS EDUCATION PROFESSOR Office Visit Department of Oncology in [place], [place] [address] [place] [phone] Kadeem Marshall P.A.-C., M.S. [address] [place] [phone] 04/05/2025 1:00 PM MATHEMATICS EDUCATION PROFESSOR Infusion Department of Oncology in [place], [place] [address] [place] [phone] Kadeem Marshall P.A.-C., M.S. [address] [place] [phone] 04/06/2025 10:00 AM MATHEMATICS EDUCATION PROFESSOR Comprehensive Visit Department of Palliative Care in [place], [place] [address] [place] [phone] Ana Rosa Hurtado APRN, C.N.P., D.N.P. [address] [place] [phone] 04/30/2025 7:15 AM MATHEMATICS EDUCATION PROFESSOR Lab Department of Oncology in [place], [place] [address] [place] [phone] Kadeem Marshall P.A.-C., M.S. [address] [place] [phone] 04/30/2025 9:20 AM MATHEMATICS EDUCATION PROFESSOR Office Visit Department of Oncology in [place], [place] [address] [place] [phone] Kadeem Marshall P.A.-C., M.S. [address] [place] [phone] 04/30/2025 2:30 PM MATHEMATICS EDUCATION PROFESSOR Infusion Department of Oncology in [place], [place] [address] [place] [phone] Kadeem Marshall P.A.-C., M.S. [address] [place] [phone] 05/21/2025 11:00 AM MATHEMATICS EDUCATION PROFESSOR Lab Department of Oncology in [address] [phone] Kadeem Marshall P.A.-C., M.S. [address] [place] [phone] 05/21/2025 1:20 PM MATHEMATICS EDUCATION PROFESSOR Office Visit Department of Oncology in [address] [phone] Kadeem Marshall P.A.-C., M.S. [address] [place] [phone] 05/21/2025 2:00 PM MATHEMATICS EDUCATION PROFESSOR Infusion Department of Oncology in [address] [phone] Kadeem Marshall P.A.-C., M.S. [address] [place] [phone] documented as of this encounter Procedures Procedure Name Priority Date/Time Associated Diagnosis Comments INITIAL RAD ONC TREATMENT PLANNING CT SIMULATION Routine 03/07/2025 2:00 PM MATHEMATICS EDUCATION PROFESSOR Secondary Malignant Neoplasm Peritoneum (HCC) documented in this encounter Results * Initial Rad Onc Treatment Planning CT Simulation (03/07/2025 2:00 PM MATHEMATICS EDUCATION PROFESSOR) Narrative KARL MULLINS - 03/07/2025 2:00 PM MATHEMATICS EDUCATION PROFESSOR Faith Ellis M.D. 03/07/2025 3:41 PM Initial [...] planning. CT images were transferred to the [employer] treatment planning system, after a reference isocenter was determined and marked. Segmentation and treatment planning will take place prior to treatment delivery. Patient set up and imaging was appropriate and completed without incident. Planner Intern use:No Faith Ellis M.D. RADIATION ONCOLOGY ORDERA BLES Final Result KARL garza documented in this encounter Visit Diagnoses Diagnosis Secondary Malignant Neoplasm Peritoneum (HCC) documented in this encounter Additional Health Concerns Infection Onset Date Last Indicated Resolved Time Protective Environment 06/02/2024 06/02/2024 documented as of this encounter Care Teams Stiff Leg Derrick Operator Relationship Specialty Start Date End Date Elsewhere, Pcp PCP - General Internal Medicine 03/08/24 documented as of this encounter
[2025-03-09] VITALS (28 sets, daily range): BP systolic 113–141; BP diastolic 74–99; PULSE 98–129; RESP 14–16; TEMP 36.3; O2SAT 92–97
--- NOTE | 2025-03-09 15:28 | ED.ABDPAIN ---
HPI - Abdominal Pain General Time Seen by Provider: 15:28 Date Seen: 03/09/25 Chief Complaint: Abdominal Pain Stated Complaint: needs fluid drained from stomach Time Seen by Provider: 03/09/25 15:27 Source: patient and RN notes reviewed Mode of arrival: ambulatory Limitations: no limitations History of Present Illness HPI narrative: Hayley Unger is a 64-year-old female presenting requesting a paracentesis. She has metastatic colon cancer, is scheduled to start radiation treatment next week. She states her radiation oncologist needs her to have a paracentesis Wednesday, she needs 1 today. She has increased abdominal discomfort, she states she can not eat or drink due to the pressure in the heartburn and reflux. She is having back pain. She is having no fevers. She has oxycodone at home but she states she really can not swallow because of her symptoms. Dilaudid did help her in red wing, she got this IV, she does not carefully start an IV today. She had 3 L of ascites fluid removed in red wing on March 06. She states that she was in the ER last night, she did have a CT which did show moderate to severe ascites fluid and extension of her metastatic cancer process. She saw Dr. Livingston last night, there is no note in the system but her CT is certainly reviewable and report reviewed. Her evaluation did start with Dr. Dodge, there where that he was done at midnight and he states that he did stay late for her. I do not have any documentation stating that Dr. Livingston had plans to do this today, reviewed with them that I would think it would be unusual for him to come back when he had worked overnight. She states he did tell her that he would do a paracentesis in clinic today, she tried to call the clinic, there was no availability. I do not believe that he was in clinic today, he did work overnight in the ER last night. Patient states she has tried calling around, there was no one to do this for her. MD elicited complaint: abdominal pain Related Data Home Medications ?Medication ?Instructions ?Recorded ?Confirmed ciprofloxacin HCl 500 mg tablet 500 mg PO BID 03/09/25 03/09/25 Previous Rx's ?Medication ?Instructions ?Recorded hydromorphone 2 mg tablet 2 mg PO Q6H PRN pain #10 tabs 11/14/25 (Dilaudid) Allergies Allergy/AdvReac Type Severity Reaction Status Date / Time doxycycline Allergy Intermediate Rash Verified 03/08/25 23:06 codeine AdvReac Intermediate Nausea Verified 03/08/25 23:06 lisinopril AdvReac Unknown Cough Verified 03/08/25 23:06 morphine AdvReac Unknown Vomiting Verified 03/09/25 15:10 acyclovir AdvReac Verified 03/08/25 23:06 Review of Systems Status of ROS Reports: 6 or more systems reviewed and unremarkable except as noted in History and below PFSH [facility] Medical History Herpes labialis ?B00.1 - Herpesviral vesicular dermatitis (ICD-10) Colon cancer ?C18.9 - Malignant neoplasm of colon, unspecified (ICD-10) Hypertension ?I10 - Essential (primary) hypertension (ICD-10) Dyslipidemia ?E78.5 - Hyperlipidemia, unspecified (ICD-10) Class 1 obesity ?E66.9 - Obesity, unspecified (ICD-10) Chronic gastroesophageal reflux disease ?K21.9 - Gastro-esophageal reflux disease without esophagitis (ICD-10) Allergic rhinitis ?J30.9 - Allergic rhinitis, unspecified (ICD-10) Recurrent sinusitis ?J32.9 - Chronic sinusitis, unspecified (ICD-10) Polyp of colon (10/14/15) ?K63.5 - Polyp of colon (ICD-10) History of vitamin D deficiency ?Z86.39 - Personal history of other endocrine, nutritional and metabolic disease (ICD-10) History of coronary angiogram (09/28/17) ?Z98.890 - Other specified postprocedural states (ICD-10) History of cardiovascular stress test (09/14/17) ?Z92.89 - Personal history of other medical treatment (ICD-10) Surgical History H/O laparoscopy ?Z98.890 - Other specified postprocedural states (ICD-10) H/O partial resection of colon ?Z90.49 - Acquired absence of other specified parts of digestive tract (ICD-10) History of total hysterectomy with removal of both tubes and ovaries (2010) ?Z90.710 - Acquired absence of both cervix and uterus (ICD-10) ?Z90.722 - Acquired absence of ovaries, bilateral (ICD-10) ?Z90.79 - Acquired absence of other genital organ(s) (ICD-10) History of colonoscopy with polypectomy (10/11/15) ?Z98.890 - Other specified postprocedural states (ICD-10) ?Z86.010 - Personal history of colonic polyps (ICD-10) History of 2 sections (1988) ?Z98.891 - History of uterine scar from previous surgery (ICD-10) Family History Maternal Grandmother Stroke Diabetes Family/Other Prostate cancer Gastric cancer Father Heart disease Social History Narrative: 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 Exercises 3-4 times per week-gym and walks, nonsmoker, no EtOH. What is your current living situation?: I presently have a place to live Problems where you live: no known problems Problems where you live details: N/A In the past 12 months, utilities in danger of being shut off: no In past 12 months, lack of transportation kept you from medical appts, meetings, work, or getting things needed for daily living: no In the past 12 mos, have been you worried that your food would run out before you had money to buy more?: never true In the past 12 mos, the food you bought just didn't last and you didn't have money to buy more?: never true Smoking Status: Never smoker Do you use any of these nicotine containing products: None Second hand tobacco smoke exposure: No How often do you have a drink containing alcohol: never How often do you have six or more drinks on one occasion: Never AUDIT-C Alcohol total score: 0 Non-prescribed substance use: denies use Caffeine: No How often does anyone, including family, friends and others, physically hurt you: never How often does anyone, including family, friends and others, insult or talk down to you: never How often does anyone, including family, friends and others, threaten you with harm: never How often does anyone, including family, friends and others, scream or curse at you: never service: No Exam Const: Vital Signs, click to edit/add: Vital Signs - 24 hr 03/09/25 15:01 03/09/25 15:48 03/09/25 15:49 Temperature 97.4 F L Pulse Rate 114 H Pulse Rate [Pulse Oximeter] 111 H Respiratory Rate 14 Blood Pressure Blood Pressure [Ri ght Upper Arm] 113/75 124/84 Pulse Oximetry 97 93 Oxygen Delivery Me thod Room Air 03/09/25 16:00 03/09/25 16:01 03/09/25 16:15 Temperature Pulse Rate 111 H 109 H 106 H Pulse Rate [Pulse Oximeter] Respiratory Rate Blood Pressure 124/89 Blood Pressure [Ri ght Upper Arm] Pulse Oximetry 95 94 92 Oxygen Delivery Me thod 03/09/25 16:30 03/09/25 16:45 03/09/25 17:00 Temperature Pulse Rate 107 H 116 H 106 H Pulse Rate [Pulse Oximeter] Respiratory Rate Blood Pressure Blood Pressure [Ri ght Upper Arm] Pulse Oximetry 93 95 94 Oxygen Delivery Me thod 03/09/25 17:01 03/09/25 17:02 03/09/25 17:15 Temperature Pulse Rate 110 H 107 H 111 H Pulse Rate [Pulse Oximeter] Respiratory Rate Blood Pressure 127/87 Blood Pressure [Ri ght Upper Arm] Pulse Oximetry 93 93 95 Oxygen Delivery Me thod 03/09/25 17:26 03/09/25 17:30 03/09/25 17:45 Temperature Pulse Rate 110 H 108 H Pulse Rate [Pulse Oximeter] Respiratory Rate Blood Pressure Blood Pressure [Ri ght Upper Arm] Pulse Oximetry 93 93 94 Oxygen Delivery Me thod 03/09/25 18:00 03/09/25 18:01 03/09/25 18:09 Temperature Pulse Rate 111 H 114 H 129 H Pulse Rate [Pulse Oximeter] Respiratory Rate Blood Pressure 124/94 H 130/90 H Blood Pressure [Ri ght Upper Arm] Pulse Oximetry 95 95 96 Oxygen Delivery Me thod 03/09/25 18:18 03/09/25 18:26 03/09/25 18:28 Temperature Pulse Rate 114 H Pulse Rate [Pulse Oximeter] Respiratory Rate Blood Pressure 139/95 H 141/99 H Blood Pressure [Ri ght Upper Arm] Pulse Oximetry 95 Oxygen Delivery Me thod 03/09/25 18:30 03/09/25 18:45 03/09/25 19:00 Temperature Pulse Rate 121 H 111 H 98 Pulse Rate [Pulse Oximeter] Respiratory Rate Blood Pressure Blood Pressure [Ri ght Upper Arm] Pulse Oximetry 97 94 95 Oxygen Delivery Me thod 03/09/25 19:01 03/09/25 19:02 03/09/25 19:15 Temperature Pulse Rate 100 102 H 98 Pulse Rate [Pulse Oximeter] Respiratory Rate Blood Pressure 125/78 Blood Pressure [Ri ght Upper Arm] Pulse Oximetry 94 94 95 Oxygen Delivery Me thod 03/09/25 19:16 Temperature Pulse Rate 99 Pulse Rate [Pulse Oximeter] Respiratory Rate 16 Blood Pressure 120/74 Blood Pressure [Ri ght Upper Arm] Pulse Oximetry 95 Oxygen Delivery Me thod This 64-year-old female is alert, interactive, no apparent stress but seems like she is uncomfortable, she is seen in stab 2 bed due to volume and acuity in the ED, not because of her condition. She does look pale, not jaundice, sclera clear, speech normal. Lungs are clear, good air entry, no wheezing or crackles, no accessory muscle use, no tachypnea. CV fast but regular, normal S1-S2, no murmur noted. Abdomen is distended, she has diffuse tenderness. Documenting provider has reviewed patient's vital signs: yes Course Reevaluation(s) Time of Reevaluation #1: 16:50 Reevaluation #1: Patient is feeling better after the dilaudid. She is aware that we are working up the logistics of doing a paracentesis today, our general surgeon Dr. Donnelly will be coming down to do this, she is working with ultrasonography for scheduling. Time of Reevaluation #2: 18:28 Reevaluation #2: Paracentesis has been accomplished by the surgeon, please see her note. 3 L were taken off. Patient will give her albumin, plan to discharge to home after that is complete. There are reportedly repeat ultrasound scheduled for Wednesday to see if there is fluid buildup. Surgeon had already updated patient's oncologist and radiation oncologist in this evaluation. Time of Reevaluation #3: 18:57 Reevaluation #3: Patient is receiving her 1st vial of albumin, her 2nd at vial should be in shortly after this 1. She is feeling so much better. She is wondering if she can have some oral dilaudid tablets on hand. I will send a few tablets in for her, this is a patient it with significant cancer burden, really do not have worries about addiction for this patient. I feel it is more humane to give her adequate pain management to have at home. Consultations Consultation #1: Did call our general surgeon Dr. Donnelly after a text to Dr. Livingston. I presume he is sleeping after working the production shift supervisor, do know he needs to come back. She did look through things, did call me back after looking at records, talking to patient's radiation oncologist as well as her oncologist. Patient did get started on Cipro and Flagyl in red wing after the ascites fluid visualized was concerning, she is being treated for peritonitis. She would like labs done again, we will get these. She would like CBC, comprehensive metabolic panel with bilirubin. Time: 15:47 Consultation #2: Dr. Donnelly is here, we reviewed labs, she would like albumin, have ordered 500 mL of 3% albumin. Manager Of Drilling is looking for a good window of ascites to potentially draw from. Time: 17:55 Vital Signs Vital signs: Initial Vital Signs Temperature 97.4 F L 03/09/25 15:01 Temperature Source Temporal Artery Scan 03/09/25 15:01 Pulse Rate 111 H 03/09/25 15:01 Pulse Rhythm Regular 03/09/25 15:01 Respiratory Rate 14 03/09/25 15:01 Blood Pressure 113/75 03/09/25 15:01 Blood Pressure Mean 87 03/09/25 15:01 Blood Pressure Position Sitting 03/09/25 15:01 Pulse Oximetry 97 03/09/25 15:01 Oxygen Delivery Method Room Air 03/09/25 15:01 Vital Signs Temperature 97.4 F L 03/09/25 15:01 Pulse Rate 111 H 03/09/25 15:01 Respiratory Rate 14 03/09/25 15:01 Blood Pressure 113/75 03/09/25 15:01 Pulse Oximetry 97 03/09/25 15:01 Oxygen Delivery Method Room Air 03/09/25 15:01 Temperature 97.4 F L 03/09/25 15:01 Pulse Rate 99 03/09/25 19:16 Respiratory Rate 16 03/09/25 19:16 Blood Pressure 120/74 03/09/25 19:16 Pulse Oximetry 95 03/09/25 19:16 Oxygen Delivery Method Room Air 03/09/25 15:01 Medications Administered Medications: Discontinued Medications Generic Name Dose Route Start Last Admin Trade Name Esau PRN Reason Stop Dose Admin Albumin Human 500 ml 03/09/25 17:54 03/09/25 18:38 Albumin Human 5% 250 Ml Inj IV 03/09/25 17:55 500 ml ONCE ONE Administration Hydromorphone HCl 0.5 mg 03/09/25 15:49 03/09/25 16:01 Hydromorphone 0.5 Mg/0.5 Ml Inj IVP 03/09/25 15:50 0.5 mg ONCE ONE Administration MDM - Abdominal Pain Lab Data Attestation: I reviewed the patient's lab results. Labs: Lab Results 03/09/25 Range/Units 16:50 WBC 8.56 (4.50-11.00) K/uL RBC 4.44 (4.00-5.20) m/uL Hgb 13.8 (12.0-16.0) gm/dL Hct 41.6 (33.0-51.0) % MCV 94 (80-100) fL MCH 31 (26-34) pg MCHC 33 (32-36) gm/dL RDW Coeff of Dorian 13.6 (11.5-15.5) % Plt Count 248 (140-440) K/uL Neut % (Auto) 84.9 H (42.0-72.0) % Lymph % (Auto) 7.0 L (20-44) % [place] % (Auto) 7.6 (0.0-11.0) % Eos % (Auto) 0.1 (0.0-7.0) % Baso % (Auto) 0.2 (0.0-3.0) % Neut # (Auto) 7.30 H (1.7-7.0) K/uL Lymph # (Auto) 0.60 L (0.90-2.90) K/uL [place] # (Auto) 0.70 (0.00-0.90) K/UL Eos # (Auto) 0.01 (0.00-0.50) K/uL Baso # (Auto) 0.02 (0.00-0.30) K/uL Abs Immat Gran (auto) 0.02 (0.00-0.30) K/uL Imm/Tot Granulo (auto) 0.2 % Sodium 129 L (135-149) mmol/L Potassium 4.8 (3.6-5.1) mmol/L Chloride 92 L (96-114) mmol/L Carbon Dioxide 21 (20-32) mmol/L Anion Gap 16 H (7-15) mEq/L BUN 14 (7-30) mg/dL Creatinine 0.7 (0.5-1.5) mg/dL Estimated GFR 97 ml/min Glucose 108 (60-115) mg/dL Calcium 9.0 (8.4-10.6) mg/dL Total Bilirubin 0.5 (0.1-1.5) mg/dL Direct Bilirubin 0.3 (0.0-0.5) mg/dL AST 25 (12-35) U/L ALT 13 (4-35) U/L Alkaline Phosphatase 64 (40-150) U/L Total Protein 5.7 L (6.0-8.3) g/dL Albumin 3.4 (3.3-5.0) g/dL Discharge Plan Discharge Clinical Impression: Abdominal ascites, Status post abdominal paracentesis Patient Disposition: Home, Self-Care Condition: Stable Instructions: Ascites (ED), Paracentesis (DC) Additional Instructions: Continue any medicines at 2 been on, complete prior antibiotics that were given to you. Follow-up for repeat ultrasound on Wednesday as scheduled to see if there is any further fluid buildup. You need to keep your upcoming Oncology, radiation appointments. If you develop increasing abdominal pain, have fever with abdominal pain at any point, do need to be re-evaluated. Have provided some Dilaudid tablets for more severe pain, otherwise use the oxycodone and your baseline pain medicines that have been outlined for you. Prescriptions: New hydromorphone [Dilaudid] 2 mg tablet 2 mg PO Q6H PRN (Reason: pain) Qty: 10 0RF No Action ciprofloxacin HCl 500 mg tablet 500 mg PO BID Follow Up/Referrals: Charla Carrington MD [Primary Care Provider, Obstetrics] Stand Alone Forms: [facility] Info Instructions
--- OUTSIDE RECORDS SUMMARY | 2025-03-09 16:16 | XMS_ITS ---
Author Organization [facility] Address [address] [place] [address] Care Team Providers Care Carbide Operator Name Role Phone Elsewhere, Pcp Primary [...] symptoms. Patient was instructed to discontinue all [id number] vitamins and supplements, aspirin and NSAID containing products until after surgery is complete. If she needs anything for pain she was instructed to use Tylenol. 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 on 02/11/2024 Overview (07/20/2022): Added automatically from request for surgery [id number] Assessment & Plan (07/21/2022 11:15 AM CDT): [...] NaCl 0.9% 269 mL IVPB (Ogivri)tucatinib (Tukysa) 150 mg tablettucatinib (Tukysa) 50 mg tablet trastuzumab-dkst 399 mg in NaCl 0.9% 269 mL IVPB (Ogivri)tucatinib (Tukysa) 150 mg tablettucatinib (Tukysa) 50 mg tablet Vascular Access Patency [...] IVPB in 250 mL (Eloxatin) Therapy Complete Segura, Mojun, M.D. 2 of 12 cycles started Infusion [...]
--- OUTSIDE RECORDS SUMMARY | 2025-03-09 16:17 | XMS_ITS | Encounter Summary ---
Author Organization [facility] Address [address] [place] [address] Care Team Providers Care Photo Lab Manager Name Role Phone Elsewhere, Pcp Primary Care Provider Unavailabl e Reason for Referral * Outpatient (Routine) - Pending Review Specialty Diagnoses / Procedures Referred By Contac t Referred To Contact Diagnoses Malignant Neoplasm Of Cecum (HCC) Ascites Procedures US Paracentesis with Imaging Guidance MA PARACENTESIS ABD W IMG Kadeem Marshall P.A.-C., M.S. [address] [place] [phone] Phone: tel: fax: [facility] Referral ID Status Reason Start Date Expiration Date V isits Requested Visits Authorized [id number] Pending Review 03/09/2025 06/09/2026 1 1 TICE ADVISOR Encounter Details Date Type Department Care Team (Late st Contact Info) Description 03/09/2025 Clinical Communication Department of Oncology in [place], [place] [address] [place] [phone] Lynn Meadows M.S.N., R.N. Social History Tobacco Use Types Packs/Day [...] money to buy more. Never true 03/07/20 Within the past 12 months, t he [...] things needed for daily living? No 03/07/2025 [facility] Utilities Answer Date Recorded In the past 12 months has [facility] electric, gas, oil, or water company threatened to shut off services in your home? No 03/07/2025 Housing Stability Answer Date Recorded What is your living situation today? I have a [facility] place to live 03/07/2025 Education Answer [...] encounter Miscellaneous Notes * Telephone Encounter - Kadeem Marshall P.A.-C., M.S. - 03/09/2025 4:04 PM PRACTICE ADVISOR I called Hayley to touch base with her. She informed me that she contacted the [facility], and they will be able to perform a paracentesis for her today. She is scheduled to start radiation and fora repeat paracentesis on Wednesday. We will be seeing her back on for chemotherapy education prior to her starting trastuzumab plus tucatinib. I did provide her with a prescription for oxycodone to have in the event she needs better pain control over the weekend. She appreciated the call. TICE ADVISOR documented in this encounter Plan of Treatment Upcoming Encounters Date Type Department Care Team (Latest Contact Info) Description 03/12/2025 11:30 AM PRACTICE ADVISOR Appointment Department of Gastroenterology in [place], [place] [address] [place] [phone] Marquise Gill M.D. [address] [place] [phone] Kala Woo APRN, C.N.P., D.N.P., M.S.N. [address] [place] [phone] Discharge Disposition: Home or Self Care 03/12/2025 3:30 PM PRACTICE ADVISOR Appointment Department of Radiation Oncology in [place], [place] [address] [place] [phone] [place] [address] 03/13/2025 3:45 PM PRACTICE ADVISOR Appointment Department of Radiation Oncology in [place], [place] [address] [place] [address] Faith Ellis M.D. [address] [place] [phone] 03/14/2025 3:30 PM PRACTICE ADVISOR Appointment Department of Radiation Oncology in [address] [phone] Faith Ellis M.D. [address] [place] [address] 03/14/2025 3:45 PM PRACTICE ADVISOR Appointment Department of Radiation Oncology in [address] [phone] Sandro Guerrero M.D. [address] [place] [phone] 03/15/2025 8:30 AM PRACTICE ADVISOR Lab Department of Laboratory Medicine and Pathology, [facility], in [place], [place] [address] [place] [address] Kadeem Marshall P.A.-C., M.S. [address] [place] [phone] 03/15/2025 9:40 AM PRACTICE ADVISOR Education Department of Oncology in [place], [place] [address] [place] [phone] Kadeem Marshall P.A.-C., M.S. [address] [place] [phone] 03/15/2025 10:30 AM PRACTICE ADVISOR Infusion Department of Oncology in [place], [place] [address] [place] [address] Kadeem Marshall P.A.-C., M.S. [address] [place] [phone] 03/15/2025 2:25 PM PRACTICE ADVISOR Appointment Department of Cardiovascular Diseases in [place], [place] [address] [place] [phone] Kadeem Marshall P.A.-C., M.S. [address] [place] [phone] Discharge Disposition: Home or Self Care 03/15/2025 3:30 PM PRACTICE ADVISOR Appointment Department of Radiation Oncology in [place], [place] [address] [place] [phone] Faith Ellis M.D. [address] [place] [phone] 03/16/2025 3:30 PM PRACTICE ADVISOR Appointment Department of Radiation Oncology in [place], [place] [address] [place] [phone] Faith Ellis M.D. [address] [place] [phone] 04/05/2025 8:30 AM PRACTICE ADVISOR Lab Department of Oncology in [address] [phone] Kadeem Marshall P.A.-C., M.S. [address] [place] [phone] 04/05/2025 10:40 AM PRACTICE ADVISOR Office Visit Department of Oncology in [address] [phone] Kadeem Marshall P.A.-C., M.S. [address] [place] [phone] 04/05/2025 1:00 PM PRACTICE ADVISOR Infusion Department of Oncology in [place], [place] [address] [place] [phone] Kadeem Marshall P.A.-C., M.S. [address] [place] [phone] 04/06/2025 10:00 AM PRACTICE ADVISOR Comprehensive Visit Department of Palliative Care in [place], [place] [address] [place] [address] Ana Rosa Hurtado APRN, C.N.PAlpesh, D.N.P. [address] [place] [phone] 04/30/2025 7:15 AM PRACTICE ADVISOR Lab Department of Oncology in [place], [place] [address] [place] [phone] Kadeem Marshall P.A.-C., M.S. [address] [place] [phone] 04/30/2025 9:20 AM PRACTICE ADVISOR Office Visit Department of Oncology in [place], [place] [address] [place] [phone] Kadeem Marshall P.A.-C., M.S. [address] [place] [phone] 04/30/2025 2:30 PM PRACTICE ADVISOR Infusion Department of Oncology in [place], [place] [address] [place] [phone] Kadeem Marshall P.A.-C., M.S. [address] [place] [phone] 05/21/2025 11:00 AM PRACTICE ADVISOR Lab Department of Oncology in [place], [place] [address] [place] [address] Kadeem Marshall P.A.-C., M.S. [address] [place] [phone] 05/21/2025 1:20 PM PRACTICE ADVISOR Office Visit Department of Oncology in [place], [place] [address] [place] [address] Kadeem Marshall P.A.-C., M.S. [address] [place] [phone] 05/21/2025 2:00 PM PRACTICE ADVISOR Infusion Department of Oncology in [place], [place] [address] [place] [address] Kadeem Marshall P.A.-C., M.S. [address] [place] [phone] Scheduled Orders Name Type Priority Associated Diagnoses Order Schedule US Paracentesis with Imaging Guidance Imaging RAD - Routine (most inpatients and all outpatients) Malignant Neoplasm Of Cecum (HCC) Ascites Expected: 03/09/2025, Expires: 06/09/2026 documented as of this encounter Visit Diagnoses Diagnosis Malignant Neoplasm Of Cecum (HCC)- Primary Ascites documented in this encounter Additional Health Concerns Infection Onset Date Last Indicated Resolved Time Protective Environment 06/02/2024 06/02/2024 documented as of this encounter Care Teams Photo Lab Manager Relationship Specialty Start Date End Date Elsewhere, Pcp PCP - General Internal Medicine 03/08/24 documented as of this encounter
--- OUTSIDE RECORDS SUMMARY | 2025-03-09 16:17 | XMS_ITS | Encounter Summary ---
Author Organization [facility] Address [address] [place] [address] Care Team Providers Care Geodetic Engineer Name Role Phone Elsewhere, Pcp Primary Care Provider Unavailabl e Reason for Visit * Reason Onset Date Comments New Tukysa Rxs needed 03/09/2025 Encounter Details Date Type Department Care Team (Latest Contact Info) Description 03/09/2025 Clinical Communication [facility] [address] [place] [phone] Dario Almaguer, Pharm.D., R.Ph. [address] [place] [address] New Tukysa Rxs needed Social History Tobacco Use Types Packs/Day Years [...] things needed for daily living? No 03/07/2025 [facility] Utilities Answer Date Recorded In the past 12 months has [employer] electric, gas, oil, or water company threatened to shut off services in your home? No 03/07/2025 Housing Stability Answer Date Recorded What is your living situation today? I have a [facility] place to live 03/07/2025 Education Answer [...] (Latest Contact Info) Description 03/12/2025 11:30 AM COAL CRUSHER OPERATOR Appointment Department of Gastroenterology in [place], [place] [address] [place] [phone] Marquise Gill M.D. [address] [place] [phone] Kala Woo APRN, C.N.P., JourdanP., M.S.N. [address] [place] [phone] Discharge Disposition: Home or Self Care 03/12/2025 3:30 PM COAL CRUSHER OPERATOR Appointment Department of Radiation Oncology in [address] [phone] Faith Ellis M.D. [address] [place] [phone] 03/13/2025 3:45 PM COAL CRUSHER OPERATOR Appointment Department of Radiation Oncology in [address] [phone] Faith Ellis M.D. [address] [place] [phone] 03/14/2025 3:30 PM COAL CRUSHER OPERATOR Appointment Department of Radiation Oncology in [address] [phone] Faith Ellis M.D. [address] [place] [phone] 03/14/2025 3:45 PM COAL CRUSHER OPERATOR Appointment Department of Radiation Oncology in [address] [phone] Sandro Guerrero M.[place]. [facility] [place] [address] 03/15/2025 8:30 AM COAL CRUSHER OPERATOR Lab Department of Laboratory Medicine and Pathology, [facility], in [place], [place] [address] [place] [phone] Kadeem Marshall P.A.-C., M.S. [address] [place] [phone] 03/15/2025 9:40 AM COAL CRUSHER OPERATOR Education Department of Oncology in [place], [place] [address] [place] [phone] Kadeem Marshall P.A.-C., M.S. [address] [place] [phone] 03/15/2025 10:30 AM COAL CRUSHER OPERATOR Infusion Department of Oncology in [place], [place] [address] [place] [phone] Kadeem Marshall P.A.-C., M.S. [address] [place] [phone] 03/15/2025 2:25 PM COAL CRUSHER OPERATOR Appointment Department of Cardiovascular Diseases in [place], [place] [address] [place] [phone] Kadeem Marshall P.A.-C., M.S. [address] [place] [phone] Discharge Disposition: Home or Self Care 03/15/2025 3:30 PM COAL CRUSHER OPERATOR Appointment Department of Radiation Oncology in [address] [phone] Faith Ellis M.D. [address] [place] [phone] 03/16/2025 3:30 PM COAL CRUSHER OPERATOR Appointment Department of Radiation Oncology in [address] [phone] Faith Ellis M.D. [address] [place] [phone] 04/05/2025 8:30 AM COAL CRUSHER OPERATOR Lab Department of Oncology in [place], [place] [address] [place] [phone] Kadeem Marshall P.A.-C., M.S. [address] [place] [phone] 04/05/2025 10:40 AM COAL CRUSHER OPERATOR Office Visit Department of Oncology in [place], [place] [address] [place] [address] Kadeem Marshall P.A.-C., M.S. [address] [place] [phone] 04/05/2025 1:00 PM COAL CRUSHER OPERATOR Infusion Department of Oncology in [place], [place] [address] [place] [phone] Kadeem Marshall P.A.-C., M.S. [address] [place] [phone] 04/06/2025 10:00 AM COAL CRUSHER OPERATOR Comprehensive Visit Department of Palliative Care in [place], [place] [address] [place] [phone] Ana Rosa Hurtado APRN, C.N.P., D.N.P. [address] [place] [phone] 04/30/2025 7:15 AM COAL CRUSHER OPERATOR Lab Department of Oncology in [place], [place] [address] [place] [phone] Kadeem Marshall P.A.-C., M.S. [address] [place] [phone] 04/30/2025 9:20 AM COAL CRUSHER OPERATOR Office Visit Department of Oncology in [place], [place] [address] [place] [phone] Kadeem Marshall P.A.-C., M.S. [address] [place] [phone] 04/30/2025 2:30 PM COAL CRUSHER OPERATOR Infusion Department of Oncology in [address] [address] Kadeem Marshall P.A.-C., M.S. [address] [place] [phone] 05/21/2025 11:00 AM COAL CRUSHER OPERATOR Lab Department of Oncology in [address] [phone] Kadeem Marshall P.A.-C., M.S. [address] [place] [phone] 05/21/2025 1:20 PM COAL CRUSHER OPERATOR Office Visit Department of Oncology in [address] [phone] Kadeem Marshall P.A.-C., M.S. [address] [place] [phone] 05/21/2025 2:00 PM COAL CRUSHER OPERATOR Infusion Department of Oncology in [address] [phone] Kadeem Marshall P.A.-C., M.S. [address] [place] [phone] documented as of this encounter Visit Diagnoses Not on filedocumented in this encounter Additional Health Concerns Infection Onset Date Last Indicated Resolved Time Protective Environment 06/02/2024 06/02/2024 documented as of this encounter Care Teams Geodetic Engineer Relationship Specialty Start Date End Date Elsewhere, Pcp PCP - General Internal Medicine 03/08/24 documented as of this encounter
--- OUTSIDE RECORDS SUMMARY | 2025-03-09 16:17 | XMS_ITS | Encounter Summary ---
Author Organization [facility] Address [address] [place] [address] Care Team Providers Care Moisture Meter Operator Name Role Phone Elsewhere, Pcp Primary Care Provider Unavailabl e Encounter Details Date Type Department Care Team (Late st Contact Info) Description 03/09/2025 Clinical Communication Department of Radiation Oncology in [address] [phone] Faith Ellis M.D. [address] [place] [address] Social History Tobacco Use Types Packs/Day Years [...] things needed for daily living? No 03/07/2025 [facility] Utilities Answer Date Recorded In the past 12 months has th [employer] electric, gas, oil, or water company threatened to shut off services in your home? No 03/07/2025 Housing Stability Answer Date Recorded What is your living situation today? I have a [facility] place to live 03/07/2025 Education Answer Date [...] encounter Miscellaneous Notes * Telephone Encounter - Faith Ellis M.D. - 03/09/2025 11:42 AM LOG WASHER I called Ms. Unger to let her know I am going to treat all of the abdominal wall masses including the one just behind her thermal wound. There is going to be radiation that goes to this area, but I think treating them out weighs the risk of longer wound healing. She let me know that she went the ER last night as her abdomen is swelling again. She was told she would be able to get a paracentesis today at [facility], but has not heard back from them yet. I told her to call them again and that I would reach out to Dr. Gill to see if he can do it today and on Wednesday. Keeping the fluid controlled will be important for her radiation treatment as we need to match our simulation volumes. I told her that there is a small chance we wouldn't be able to match and treat her and that I will let Dr. Guerrero know. I will also keep Ms. Marshall in the loop. Ms. Unger will be starting her systemic therapy on March 15. She had a CT at [facility] last night and I will try to get these images intoour image viewer. WASHER documented in this encounter Plan of Treatment Upcoming Encounters Date Type Department Care Team (Latest Contact Info) Description 03/12/2025 11:30 AM LOG WASHER Appointment Department of Gastroenterology in [address] [phone] Marquise Gill M.D. [address] [place] [phone] Kala Woo APRN, C.N.P., D.N.P., M.S.N. [address] [place] [phone] Discharge Disposition: Home or Self Care 03/12/2025 3:30 PM LOG WASHER Appointment Department of Radiation Oncology in [address] [phone] Faith Ellis M.D. [address] [place] [address] 03/13/2025 3:45 PM LOG WASHER Appointment Department of Radiation Oncology in [address] [address] Faith Ellis M.D. [address] [place] [phone] 03/14/2025 3:30 PM LOG WASHER Appointment Department of Radiation Oncology in [place], [place] [address] [place] [phone] Faith Ellis M.D. [address] [place] [address] 03/14/2025 3:45 PM LOG WASHER Appointment Department of Radiation Oncology in [place], [place] [address] [place] [phone] Sandro Guerrero M.D. [address] [place] [phone] 03/15/2025 8:30 AM LOG WASHER Lab Department of Laboratory Medicine and Pathology, [facility] in [place], [place] [address] [place] [phone] Kadeem Marshall P.A.-C., M.S. [address] [place] [phone] 03/15/2025 9:40 AM LOG WASHER Education Department of Oncology in [place], [place] [address] [place] [phone] Kadeem Marshall P.A.-C., M.S. [address] [place] [phone] 03/15/2025 10:30 AM LOG WASHER Infusion Department of Oncology in [place], [place] [address] [place] [phone] Kadeem Marshall P.A.-C., M.S. [address] [place] [phone] 03/15/2025 2:25 PM LOG WASHER Appointment Department of Cardiovascular Diseases in [place], [place] [address] [place] [phone] Kadeem Marshall P.A.-C., M.S. [address] [place] [phone] Discharge Disposition: Home or Self Care 03/15/2025 3:30 PM LOG WASHER Appointment Department of Radiation Oncology in [place], [place] [address] [place] [address] Faith Ellis M.D. [address] [place] [phone] 03/16/2025 3:30 PM LOG WASHER Appointment Department of Radiation Oncology in [place], [place] [address] [place] [address] Faith Ellis M.D. [address] [place] [phone] 04/05/2025 8:30 AM LOG WASHER Lab Department of Oncology in [address] [address] Kadeem Marshall P.A.-C., M.S. [address] [place] [phone] 04/05/2025 10:40 AM LOG WASHER Office Visit Department of Oncology in [address] [phone] Kadeem Marshall P.A.-C., M.S. [address] [place] [phone] 04/05/2025 1:00 PM LOG WASHER Infusion Department of Oncology in [address] [address] Kadeem Marshall P.A.-C., M.S. [address] [place] [phone] 04/06/2025 10:00 AM LOG WASHER Comprehensive Visit Department of Palliative Care in [place], [place] [address] [place] [phone] Ana Rosa Hurtado APRN CAlpeshNEverett, Paula.N.PAlpesh [address] [place] [phone] 04/30/2025 7:15 AM LOG WASHER Lab Department of Oncology in [place], [place] [address] [place] [phone] Kadeem Marshall P.A.-C., M.S. [address] [place] [phone] 04/30/2025 9:20 AM LOG WASHER Office Visit Department of Oncology in [place], [place] [address] [place] [phone] Kadeem Marshall P.A.-C., M.S. [address] [place] [phone] 04/30/2025 2:30 PM LOG WASHER Infusion Department of Oncology in [address] [address] Kadeem Marshall P.A.-C., M.S. [address] [place] [phone] 05/21/2025 11:00 AM LOG WASHER Lab Department of Oncology in [address] [address] Kadeem Marshall P.A.-C., M.S. [address] [place] [phone] 05/21/2025 1:20 PM LOG WASHER Office Visit Department of Oncology in [place], [place] [address] [place] [phone] Kadeem Marshall P.A.-C., M.S. [address] [place] [phone] 05/21/2025 2:00 PM LOG WASHER Infusion Department of Oncology in [place], [place] [address] [place] [phone] Kadeem Marshall P.A.-C., M.S. [address] [place] [phone] documented as of this encounter Visit Diagnoses Not on filedocumented in this encounter Additional Health Concerns Infection Onset Date Last Indicated Resolved Time Protective Environment 06/02/2024 06/02/2024 documented as of this encounter Care Teams Moisture Meter Operator Relationship Specialty Start Date End Date Elsewhere, Pcp PCP - General Internal Medicine 03/08/24 documented as of this encounter
--- OUTSIDE RECORDS SUMMARY | 2025-03-09 16:17 | XMS_ITS | Encounter Summary ---
Author Organization [facility] Address [address] [place] [address] Care Team Providers Care Motor Generator Set Operator Name Role Phone Elsewhere, Pcp Primary Care Provider Unavailabl e Reason for Referral * Outpatient (Routine) - Authorized Specialty Diagnoses / Procedures Referred By Contjayme t Referred To Contact Diagnoses Secondary Malignant Neoplasm Peritoneum (HCC) Procedures US Paracentesis with Imaging Guidance [place] PARACENTESIS ABD W IMG Faith Ellis M.D. [address] [place] [phone] Phone: tel: fax: [facility] Region Referral ID Status Reason Start Date Expiration Date V isits Requested Visits Authorized [id number] Authorized 03/09/2025 06/09/2026 1 1 RIDER Encounter Details Date Type Department Care Team (Late st Contact Info) Description 03/09/2025 Orders Only Department of Radiation Oncology in [address] [phone] Faith Ellis M.D. [address] [place] [phone] Secondary Malignant Neoplasm Peritoneum (HCC) (Primary Dx) [...] things needed for daily living? No 03/07/2025 [facility] Utilities Answer Date Recorded In the past 12 months has e [employer], gas, oil, or water [employer] threatened to shut off services in your home? No 03/07/2025 Housing Stability Answer Date Recorded What is your living situation today? I have a [facility] place to live 03/07/2025 Education Answer [...] (Latest Contact Info) Description 03/12/2025 11:30 AM CAR RIDER Appointment Department of Gastroenterology in [address] [address] Marquise Gill M.D. [address] [place] [phone] Kala Woo APRN, C.N.P., D.N.P., M.S.N. [address] [place] [phone] Discharge Disposition: Home or Self Care 03/12/2025 3:30 PM CAR RIDER Appointment Department of Radiation Oncology in [address] [phone] Faith Ellis M.D. 200 [place] [address] 03/13/2025 3:45 PM CAR RIDER Appointment Department of Radiation Oncology in [address] [phone] Faith Ellis M.D. 200 [place] [address] 03/14/2025 3:30 PM CAR RIDER Appointment Department of Radiation Oncology in [address] [phone] Faith Ellis M.D. [address] [place] [address] 03/14/2025 3:45 PM CAR RIDER Appointment Department of Radiation Oncology in [place], [place] [address] [place] [phone] Sandro Guerrero M.D. [address] [place] [phone] 03/15/2025 8:30 AM CAR RIDER Lab Department of Laboratory Medicine and Pathology, [facility], in [place], [place] [address] [place] [phone] Kadeem Marshall P.A.-C., M.S. [address] [place] [phone] 03/15/2025 9:40 AM CAR RIDER Education Department of Oncology in [place], [place] [address] [place] [address] Kadeem Marshall P.A.-C., M.S. [address] [place] [phone] 03/15/2025 10:30 AM CAR RIDER Infusion Department of Oncology in [place], [place] [address] [place] [address] Kadeem Marshall P.A.-C., M.S. [address] [place] [phone] 03/15/2025 2:25 PM CAR RIDER Appointment Department of Cardiovascular Diseases in [place], [place] [address] [place] [address] Kadeem Marshall P.A.-C., M.S. [address] [place] [phone] Discharge Disposition: Home or Self Care 03/15/2025 3:30 PM CAR RIDER Appointment Department of Radiation Oncology in [place], [place] [address] [place] [phone] Faith Ellis M.D. [address] [place] [phone] 03/16/2025 3:30 PM CAR RIDER Appointment Department of Radiation Oncology in [place], [place] [address] [place] [phone] Faith Ellis M.D. [address] [place] [phone] 04/05/2025 8:30 AM CAR RIDER Lab Department of Oncology in [place], [place] [address] [place] [phone] Kadeem Marshall P.A.-C., M.S. [address] [place] [phone] 04/05/2025 10:40 AM CAR RIDER Office Visit Department of Oncology in [place], [place] [address] [place] [phone] Kadeem Marshall P.A.-C., M.S. [address] [place] [phone] 04/05/2025 1:00 PM CAR RIDER Infusion Department of Oncology in [place], [place] [address] [place] [phone] Kadeem Marshall P.A.-C., M.S. [address] [place] [phone] 04/06/2025 10:00 AM CAR RIDER Comprehensive Visit Department of Palliative Care in [place], [place] [address] [place] [phone] Ana Rosa Hurtado APRN C.N.P., D.N.P. [address] [place] [phone] 04/30/2025 7:15 AM CAR RIDER Lab Department of Oncology in [place], [place] [address] [place] [phone] Kadeem Marshall P.A.-C., M.S. [address] [place] [phone] 04/30/2025 9:20 AM CAR RIDER Office Visit Department of Oncology in [place], [place] [address] [place] [phone] Kadeem Marshall P.A.-C., M.S. [address] [place] [phone] 04/30/2025 2:30 PM CAR RIDER Infusion Department of Oncology in [address] [phone] Kadeem Marshall P.A.-C., M.S. [address] [place] [phone] 05/21/2025 11:00 AM CAR RIDER Lab Department of Oncology in [address] [phone] Kadeem Marshall P.A.-C., M.S. [address] [place] [phone] 05/21/2025 1:20 PM CAR RIDER Office Visit Department of Oncology in [address] [phone] Kadeem Marshall P.A.-C., M.S. [address] [place] [phone] 05/21/2025 2:00 PM CAR RIDER Infusion Department of Oncology in [address] [address] Kadeem Marshall P.A.-C., M.S. [address] [place] [address] Scheduled Orders Name Type Priority Associated Diagnoses Order Schedule US Paracentesis with Imaging Guidance Imaging RAD - Routine (most inpatients and all outpatients) Secondary Malignant Neoplasm Peritoneum (HCC) Expected: 03/09/2025, Expires: 06/09/2026 documented as of this encounter Visit Diagnoses Diagnosis Secondary Malignant Neoplasm Peritoneum (HCC)- Primary documented in this encounter Additional Health Concerns Infection Onset Date Last Indicated Resolved Time Protective Environment 06/02/2024 06/02/2024 documented as of this encounter Care Teams Motor Generator Set Operator Relationship Specialty Start Date End Date Elsewhere, Pcp PCP - General Internal Medicine 03/08/24 documented as of this encounter
--- OUTSIDE RECORDS SUMMARY | 2025-03-09 16:18 | XMS_ITS | Encounter Summary ---
Author Organization [facility] Address [address] [place] [address] Care Team Providers Care Box Shook Patcher Name Role Phone Elsewhere, Pcp Primary Care Provider Unavailabl e Reason for Referral * Outpatient (Routine) - Authorized Specialty Diagnoses / Procedures Referred By Edgardo t Referred To Contact Diagnoses Secondary Malignant Neoplasm Peritoneum (HCC) Procedures US Paracentesis with Imaging Guidance [place] PARACENTESIS ABD W IMG Faith Ellis M.D. 200 [place] [address] Phone: tel: fax: [facility] Region Referral ID Status Reason Start Date Expiration Date V isits Requested Visits Authorized [id number] Authorized 03/09/2025 06/09/2026 1 1 N RESOURCES EXECUTIVE Encounter Details Date Type Department Care Team (Late st Contact Info) Description 03/09/2025 Orders Only Department of Radiation Oncology in [address] [phone] Faith Ellis M.D. [address] [place] [phone] Secondary Malignant Neoplasm Peritoneum (HCC) (Primary Dx) [...] needed for daily living? No 03/07/2025 [facility] Utilities Answer Date Recorded In the past 12 months has e electric, gas, oil, or water [employer] threatened to shut off services in your home? No 03/07/2025 Housing Stability Answer Date Recorded What is your living situation today? I have a [facility] place to live 03/07/2025 Education Answer [...] (Latest Contact Info) Description 03/12/2025 11:30 AM HUMAN RESOURCES EXECUTIVE Appointment Department of Gastroenterology in [address] [phone] Marquise Gill M.D. [address] [place] [phone] Kala Woo APRN, C.N.P., D.N.P., M.S.N. [address] [place] [phone] Discharge Disposition: Home or Self Care 03/12/2025 3:30 PM HUMAN RESOURCES EXECUTIVE Appointment Department of Radiation Oncology in [address] [phone] Faith Ellis M.D. 200 [place] [address] 03/13/2025 3:45 PM HUMAN RESOURCES EXECUTIVE Appointment Department of Radiation Oncology in [address] [address] Faith Ellis M.D. 200 [place] [address] 03/14/2025 3:30 PM HUMAN RESOURCES EXECUTIVE Appointment Department of Radiation Oncology in [address] [phone] Faith Ellis M.D. [address] [place] [address] 03/14/2025 3:45 PM HUMAN RESOURCES EXECUTIVE Appointment Department of Radiation Oncology in [place], [place] [address] [place] [phone] Sandro Guerrero M.D. [address] [place] [phone] 03/15/2025 8:30 AM HUMAN RESOURCES EXECUTIVE Lab Department of Laboratory Medicine and Pathology, [facility], in [place], [place] [address] [place] [phone] Kadeem Marshall P.A.-C., M.S. [address] [place] [phone] 03/15/2025 9:40 AM HUMAN RESOURCES EXECUTIVE Education Department of Oncology in [place], [place] [address] [place] [address] Kadeem Marshall P.A.-C., M.S. [address] [place] [phone] 03/15/2025 10:30 AM HUMAN RESOURCES EXECUTIVE Infusion Department of Oncology in [place], [place] [address] [place] [address] Kadeem aMrshall P.A.-C., M.S. [address] [place] [phone] 03/15/2025 2:25 PM HUMAN RESOURCES EXECUTIVE Appointment Department of Cardiovascular Diseases in [place], [place] [address] [place] [address] Kadeem Marshall P.A.-C., M.S. [address] [place] [phone] Discharge Disposition: Home or Self Care 03/15/2025 3:30 PM HUMAN RESOURCES EXECUTIVE Appointment Department of Radiation Oncology in [place], [place] [address] [place] [phone] Faith Ellis M.D. [address] [place] [phone] 03/16/2025 3:30 PM HUMAN RESOURCES EXECUTIVE Appointment Department of Radiation Oncology in [place], [place] [address] [place] [address] Faith Ellis M.D. [address] [place] [phone] 04/05/2025 8:30 AM HUMAN RESOURCES EXECUTIVE Lab Department of Oncology in [place], [place] [address] [place] [phone] Kadeem Marshall P.A.-C., M.S. [address] [place] [phone] 04/05/2025 10:40 AM HUMAN RESOURCES EXECUTIVE Office Visit Department of Oncology in [place], [place] [address] [place] [phone] Kadeem Marshall P.A.-C., M.S. [address] [place] [phone] 04/05/2025 1:00 PM HUMAN RESOURCES EXECUTIVE Infusion Department of Oncology in [place], [place] [address] [place] [phone] Kadeem Marshall P.A.-C., M.S. [address] [place] [phone] 04/06/2025 10:00 AM HUMAN RESOURCES EXECUTIVE Comprehensive Visit Department of Palliative Care in [place], [place] [address] [place] [phone] Ana Rosa Hurtado APRN, C.N.P., D.N.P. [address] [place] [phone] 04/30/2025 7:15 AM HUMAN RESOURCES EXECUTIVE Lab Department of Oncology in [place], [place] [address] [place] [phone] Kadeem Marshall P.A.-C., M.S. [address] [place] [phone] 04/30/2025 9:20 AM HUMAN RESOURCES EXECUTIVE Office Visit Department of Oncology in [place], [place] [address] [place] [phone] Kadeem Marshall P.A.-C., M.S. [address] [place] [phone] 04/30/2025 2:30 PM HUMAN RESOURCES EXECUTIVE Infusion Department of Oncology in [address] [address] Kadeem Marshall P.A.-C., M.S. [address] [place] [phone] 05/21/2025 11:00 AM HUMAN RESOURCES EXECUTIVE Lab Department of Oncology in [address] [phone] Kadeem Marshall P.A.-C., M.S. [address] [place] [phone] 05/21/2025 1:20 PM HUMAN RESOURCES EXECUTIVE Office Visit Department of Oncology in [address] [phone] Kadeem Marshall P.A.-C., M.S. [address] [place] [phone] 05/21/2025 2:00 PM HUMAN RESOURCES EXECUTIVE Infusion Department of Oncology in [address] [phone] Kadeem Marshall P.A.-C., M.S. [address] [place] [address] Scheduled Orders Name Type Priority Associated Diagnoses Order Schedule US Paracentesis with Imaging Guidance Imaging RAD - Routine (most inpatients and all outpatients) Secondary Malignant Neoplasm Peritoneum (HCC) Expected: 03/14/2025, Expires: 06/09/2026 documented as of this encounter Visit Diagnoses Diagnosis Secondary Malignant Neoplasm Peritoneum (HCC)- Primary documented in this encounter Additional Health Concerns Infection Onset Date Last Indicated Resolved Time Protective Environment 06/02/2024 06/02/2024 documented as of this encounter Care Teams Box Shook Patcher Relationship Specialty Start Date End Date Elsewhere, Pcp PCP - General Internal Medicine 03/08/24 documented as of this encounter
--- OUTSIDE RECORDS SUMMARY | 2025-03-09 16:18 | XMS_ITS | Encounter Summary ---
Author Organization [facility] Address [address] [place] [phone] Care Team Providers Care Cattle Feeder Name Role Phone Elsewhere, Pcp Primary Care Provider Unavailabl e Reason for Visit * Reason Comments Chemotherapy Encounter Details Date Type Department Care Team (Late st Contact Info) Description 03/09/2025 Documentation Department of Oncology in [place], [place] [address] [place] [phone] Chelly Starr, Pharm.D., R.Ph. [address] [place] [phone] Chemotherapy Social History Tobacco Use Types Packs/Day [...] things needed for daily living? No 03/07/2025 [facility] Utilities Answer Date Recorded In the past 12 months has th e electric, gas, oil, or water company threatened to shut off services in your home? No 03/07/2025 Housing Stability Answer Date Recorded What is your living situation today? I have a [facility] place to live 03/07/2025 Education Answer [...] AM CDT documented as of this encounter Progress Notes * Chelly Starr, Pharm.D., R.Ph. - 03/09/2025 2:25 PM CST Treatment Plan Assistance Encounter I was contacted by [facility] for assistance with treatment planning. Ms. Unger is a 64 y.o. female with a history of metastatic colon cancer . Alo is currently planning treatment with trastuzumab and tucatinib. I have completed the following tasks: 1) patient would like a reduced dose due to ???being sensitive to medications?? received a [facility]from [facility] to change the tucatinib dose prescription from 5 x 50 mg tablets to a combination of 2 x 50s + 150 mg tablet twice a day = 250 mg. Sent new script. 2) Communication already sent to [facility] on 02/28 to follow script. This patient was not personally interviewed or examined for this chart review. Any history and examination findings are based on the clinical documentation provided and/or discussion with referring provider/care steam trap worker who had personally interviewed and examined the patient. Application of these or other clinical recommendations should always be subject to provider discretion and clinical discussions with patient going forward. This is a no charge encounter. E RESPOOLER documented in this encounter Plan of Treatment Upcoming Encounters Date Type Department Care Team (Latest Contact Info) Description 03/12/2025 11:30 AM CABLE RESPOOLER Appointment Department of Gastroenterology in [address] [phone] Marquise Gill M.D. [address] [place] [phone] Kala Woo APRN, C.N.P., D.N.P., M.S.N. [address] [place] [phone] Discharge Disposition: Home or Self Care 03/12/2025 3:30 PM CABLE RESPOOLER Appointment Department of Radiation Oncology in [address] [phone] Faith Ellis M.D. 200 [place] [address] 03/13/2025 3:45 PM CABLE RESPOOLER Appointment Department of Radiation Oncology in [address] [phone] Faith Ellis M.D. 200 [place] [phone] 03/14/2025 3:30 PM CABLE RESPOOLER Appointment Department of Radiation Oncology in [place], [place] [address] [place] [phone] Faith Ellis M.D. [address] [place] [phone] 03/14/2025 3:45 PM CABLE RESPOOLER Appointment Department of Radiation Oncology in [place], [place] [address] [place] [phone] Sandro Guerrero M.D. [address] [place] [phone] 03/15/2025 8:30 AM CABLE RESPOOLER Lab Department of Laboratory Medicine and Pathology, [facility], in [place], [place] [address] [place] [phone] Kadeem Marshall P.A.-C., M.S. [address] [place] [phone] 03/15/2025 9:40 AM CABLE RESPOOLER Education Department of Oncology in [place], [place] [address] [place] [phone] Kadeem Marshall P.A.-C., M.S. [address] [place] [phone] 03/15/2025 10:30 AM CABLE RESPOOLER Infusion Department of Oncology in [place], [place] [address] [place] [phone] Kadeem Marshall P.A.-C., M.S. [address] [place] [phone] 03/15/2025 2:25 PM CABLE RESPOOLER Appointment Department of Cardiovascular Diseases in [place], [place] [address] [place] [phone] Kadeem Marshall P.A.-C., M.S. [address] [place] [phone] Discharge Disposition: Home or Self Care 03/15/2025 3:30 PM CABLE RESPOOLER Appointment Department of Radiation Oncology in [place], [place] [address] [place] [phone] Faith Ellis M.D. [address] [place] [phone] 03/16/2025 3:30 PM CABLE RESPOOLER Appointment Department of Radiation Oncology in [place], [place] [address] [place] [phone] Faith Ellis M.D. [address] [place] [phone] 04/05/2025 8:30 AM CABLE RESPOOLER Lab Department of Oncology in [place], [place] [address] [place] [phone] Kadeem Marshall P.A.-C., M.S. [address] [place] [phone] 04/05/2025 10:40 AM CABLE RESPOOLER Office Visit Department of Oncology in [address] [phone] Kadeem Marshall P.A.-C., M.S. [address] [place] [phone] 04/05/2025 1:00 PM CABLE RESPOOLER Infusion Department of Oncology in [address] [address] Kadeem Marshall P.A.-C., M.S. [address] [place] [phone] 04/06/2025 10:00 AM CABLE RESPOOLER Comprehensive Visit Department of Palliative Care in [place], [place] [address] [place] [phone] Ana Rosa Hurtado APRN CAlpeshNAlpeshPAlpesh, FelipeN.P. [address] [place] [phone] 04/30/2025 7:15 AM CABLE RESPOOLER Lab Department of Oncology in [place], [place] [address] [place] [phone] Kadeem Marshall P.A.-C., M.S. [address] [place] [phone] 04/30/2025 9:20 AM CABLE RESPOOLER Office Visit Department of Oncology in [address] [phone] Kadeem Marshall P.A.-C., M.S. [address] [place] [phone] 04/30/2025 2:30 PM CABLE RESPOOLER Infusion Department of Oncology in [address] [phone] Kadeem Marshall P.A.-C., M.S. [address] [place] [phone] 05/21/2025 11:00 AM CABLE RESPOOLER Lab Department of Oncology in [address] [phone] Kadeem Marshall P.A.-C., M.S. [address] [place] [phone] 05/21/2025 1:20 PM CABLE RESPOOLER Office Visit Department of Oncology in [address] [phone] Kadeem Marshall P.A.-C., M.S. [address] [place] [phone] 05/21/2025 2:00 PM CABLE RESPOOLER Infusion Department of Oncology in [place], [place] [address] [place] [phone] Kadeem Marshall P.A.-C., M.S. [address] [place] [phone] documented as of this encounter Visit Diagnoses Not on filedocumented in this encounter Additional Health Concerns Infection Onset Date Last Indicated Resolved Time Protective Environment 06/02/2024 06/02/2024 documented as of this encounter Care Teams Cattle Feeder Relationship Specialty Start Date End Date Elsewhere, Pcp PCP - General Internal Medicine 03/08/24 documented as of this encounter
--- OUTSIDE RECORDS SUMMARY | 2025-03-09 16:18 | XMS_ITS | Encounter Summary ---
Author Organization [facility] Address [address] [place] [address] Care Team Providers Care Coding Spec Name Role Phone Elsewhere, Pcp Primary Care Provider Unavailabl e Reason for Referral * Medication Prior Authorization - Pending Review Specialty Diagnoses / Procedures Referred By Contac t Referred To Contact Diagnoses Malignant Neoplasm Of Cecum (HCC) Kadeem Marshall P.A.-C., M.S. [address] [place] [address] Phone: tel: fax: Referral ID Status Reason Start Date Expiration Date V isits Requested Visits Authorized [id number] Pending Review 1 1 TUBING DYER * Medication Prior Authorization - Pending Review Specialty Diagnoses / Procedures Referred By Contac t Referred To Contact Diagnoses Malignant Neoplasm Of Cecum (HCC) Kadeem Marshall P.A.-C., M.S. [address] [place] [address] Phone: tel: fax: Referral ID Status Reason Start Date Expiration Date V isits Requested Visits Authorized [id number] Pending Review 1 1 TUBING DYER Encounter Details Date Type Department Care Team (Late st Contact Info) Description 03/09/2025 Orders Only Department of Oncology in [place], [place] [address] [place] [address] Chelly Starr, Pharm.D., R.Ph. 200 [place] [address] Malignant Neoplasm Of Cecum (HCC) (Primary Dx) [...] things needed for daily living? No 03/07/2025 [facility] Utilities Answer Date Recorded In the past 12 months has e [employer], gas, oil, or water [employer] threatened to shut off services in your home? No 03/07/2025 Housing Stability Answer Date Recorded What is your living situation today? I have a [facility] place to live 03/07/2025 Education Answer [...] (Latest Contact Info) Description 03/12/2025 11:30 AM KNIT TUBING DYER Appointment Department of Gastroenterology in [address] [phone] Marquise Gill M.D. [address] [place] [phone] Kala Woo APRN, C.N.P., D.N.P., M.S.N. [address] [place] [phone] Discharge Disposition: Home or Self Care 03/12/2025 3:30 PM KNIT TUBING DYER Appointment Department of Radiation Oncology in [place] [address] [place] [phone] Faith Ellis M.D. 200 [place] [address] 03/13/2025 3:45 PM KNIT TUBING DYER Appointment Department of Radiation Oncology in [place] [address] [place] [phone] Faith Ellis M.D. 200 [place] [address] 03/14/2025 3:30 PM KNIT TUBING DYER Appointment Department of Radiation Oncology in [place], [place] [address] [place] [phone] Faith Ellis M.D. [address] [place] [phone] 03/14/2025 3:45 PM KNIT TUBING DYER Appointment Department of Radiation Oncology in [place], [place] [address] [place] [phone] Sandro Guerrero M.D. [address] [place] [phone] 03/15/2025 8:30 AM KNIT TUBING DYER Lab Department of Laboratory Medicine and Pathology, [facility] in [place], [place] [address] [place] [phone] Kadeem Marshall P.A.-C., M.S. [address] [place] [phone] 03/15/2025 9:40 AM KNIT TUBING DYER Education Department of Oncology in [address] [address] Kadeem Marshall P.A.-C., M.S. [address] [place] [phone] 03/15/2025 10:30 AM KNIT TUBING DYER Infusion Department of Oncology in [place], [place] [address] [place] [phone] Kadeem Marshall P.A.-C., M.S. [address] [place] [phone] 03/15/2025 2:25 PM KNIT TUBING DYER Appointment Department of Cardiovascular Diseases in [place], [place] [address] [place] [phone] Kadeem Marshall P.A.-C., M.S. [address] [place] [phone] Discharge Disposition: Home or Self Care 03/15/2025 3:30 PM KNIT TUBING DYER Appointment Department of Radiation Oncology in [place], [place] [address] [place] [phone] Faith Ellis M.D. [address] [place] [phone] 03/16/2025 3:30 PM KNIT TUBING DYER Appointment Department of Radiation Oncology in [place], [place] [address] [place] [phone] Faith Ellis M.D. [address] [place] [phone] 04/05/2025 8:30 AM KNIT TUBING DYER Lab Department of Oncology in [place], [place] [address] [place] [phone] Kadeem Marshall P.A.-C., M.S. [address] [place] [phone] 04/05/2025 10:40 AM KNIT TUBING DYER Office Visit Department of Oncology in [address] [phone] Kadeem Marshall P.A.-C., M.S. [address] [place] [phone] 04/05/2025 1:00 PM KNIT TUBING DYER Infusion Department of Oncology in [address] [address] Kadeem Marshall P.A.-C., M.S. [address] [place] [phone] 04/06/2025 10:00 AM KNIT TUBING DYER Comprehensive Visit Department of Palliative Care in [place], [place] [address] [place] [phone] Ana Rosa Hurtado APRN CAlpeshNAlpeshPAlpesh, DAlpeshN.P. [address] [place] [phone] 04/30/2025 7:15 AM KNIT TUBING DYER Lab Department of Oncology in [place], [place] [address] [place] [phone] Kadeem Marshall P.A.-C., M.S. [address] [place] [phone] 04/30/2025 9:20 AM KNIT TUBING DYER Office Visit Department of Oncology in [place], [place] [address] [place] [phone] Kadeem Marshall P.A.-C., M.S. [address] [place] [phone] 04/30/2025 2:30 PM KNIT TUBING DYER Infusion Department of Oncology in [place], [place] [address] [place] [phone] Kadeem Marshall P.A.-C., M.S. [address] [place] [phone] 05/21/2025 11:00 AM KNIT TUBING DYER Lab Department of Oncology in [address] [address] Kadeem Marshall P.A.-C., M.S. [address] [place] [phone] 05/21/2025 1:20 PM KNIT TUBING DYER Office Visit Department of Oncology in [address] [phone] Kadeem Marshall P.A.-C., M.S. [address] [place] [address] 05/21/2025 2:00 PM KNIT TUBING DYER Infusion Department of Oncology in [place], [place] [address] [place] [address] Kadeem Marshall P.A.-C., M.S. [address] [place] [address] documented as of this encounter Visit Diagnoses Diagnosis Malignant Neoplasm Of Cecum (HCC)- Primary documented in this encounter Additional Health Concerns Infection Onset Date Last Indicated Resolved Time Protective Environment 06/02/2024 06/02/2024 documented as of this encounter Care Teams Coding Spec Relationship Specialty Start Date End Date Elsewhere, Pcp PCP - General Internal Medicine 03/08/24 documented as of this encounter
--- OUTSIDE RECORDS SUMMARY | 2025-03-09 16:18 | XMS_ITS | Encounter Summary ---
Author Organization [facility] Address [address] [place] [address] Care Team Providers Care Flame Channeler Name Role Phone Elsewhere, Pcp Primary Care Provider Unavailabl e Reason for Visit * Reason Onset Date Comments Med Refill 02/28/2025 Babar Encounter Details Date Type Department Care Team (Latest Contact Info) Description 02/28/2025 Clinical Communication Department of Oncology in [place], [place] [address] [place] [address] Kadeem Marshall, Ciaran-Tammy., M.S. [address] [place] [address] Med Refill (rey) Social History Tobacco Use Types Packs/Day Years Used Date Smoking Tobacco: Never Passive Smoke Exposure: Never Smokeless Tobacco: Never Alcohol Use Standard Drinks/Week Comments Not Currently 0 (1 standard drink = 0.6 oz pur e alcohol) [facility] Utilities Answer Date Recorded In the past 12 months has e [employer], gas, oil, or water company threatened to [...] your living situation today? I have a [facility] place to live 2024 Education Answer [...] * Telephone Encounter - Jessica Pat - 03/09/2025 1:16 PM CST DERECK Eckert Rx [facility] NEED CEE Pending PA Approval PA Approved Emailed [facility] to initiate dispense NCE SEAL DELIVERY SYSTEM MAINTAINER * Telephone Encounter - Jessica Pat - 02/28/2025 10:46 AM CST DERECK Eckert Rx [facility] NEED CEE Pending PA Approval NCE SEAL DELIVERY SYSTEM MAINTAINER documented in this encounter Plan of Treatment Upcoming Encounters Date Type Department Care Team (Latest Contact Info) Description 03/12/2025 11:30 AM ADVANCE SEAL DELIVERY SYSTEM MAINTAINER Appointment Department of Gastroenterology in [address] [phone] Marquise Gill M.D. [address] [place] [phone] Kala Woo APRN, C.N.P., D.N.P., M.S.N. [address] [place] [phone] Discharge Disposition: Home or Self Care 03/12/2025 3:30 PM ADVANCE SEAL DELIVERY SYSTEM MAINTAINER Appointment Department of Radiation Oncology in [address] [phone] Faith Ellis M.D. [address] [place] [phone] 03/13/2025 3:45 PM ADVANCE SEAL DELIVERY SYSTEM MAINTAINER Appointment Department of Radiation Oncology in [address] [address] Faith Ellis M.D. [address] [place] [phone] 03/14/2025 3:30 PM ADVANCE SEAL DELIVERY SYSTEM MAINTAINER Appointment Department of Radiation Oncology in [address] [address] Faith Ellis M.D. [address] [place] [phone] 03/14/2025 3:45 PM ADVANCE SEAL DELIVERY SYSTEM MAINTAINER Appointment Department of Radiation Oncology in [place], [place] [address] [place] [phone] Sandro Guerrero M.D. [address] [place] [phone] 03/15/2025 8:30 AM ADVANCE SEAL DELIVERY SYSTEM MAINTAINER Lab Department of Laboratory Medicine and Pathology, [facility] in [place], [place] [address] [place] [address] Kadeem Marshall P.A.-C., M.S. [address] [place] [phone] 03/15/2025 9:40 AM ADVANCE SEAL DELIVERY SYSTEM MAINTAINER Education Department of Oncology in [place], [place] [address] [place] [address] Kadeem Marshall P.A.-C., M.S. [address] [place] [phone] 03/15/2025 10:30 AM ADVANCE SEAL DELIVERY SYSTEM MAINTAINER Infusion Department of Oncology in [place], [place] [address] [place] [address] Kadeem Marshall P.A.-C., M.S. [address] [place] [phone] 03/15/2025 2:25 PM ADVANCE SEAL DELIVERY SYSTEM MAINTAINER Appointment Department of Cardiovascular Diseases in [place], [place] [address] [place] [phone] Kadeem Marshall P.A.-C., M.S. [address] [place] [phone] Discharge Disposition: Home or Self Care 03/15/2025 3:30 PM ADVANCE SEAL DELIVERY SYSTEM MAINTAINER Appointment Department of Radiation Oncology in [place], [place] [address] [place] [phone] Faith Ellis M.D. [address] [place] [phone] 03/16/2025 3:30 PM ADVANCE SEAL DELIVERY SYSTEM MAINTAINER Appointment Department of Radiation Oncology in [place], [place] [address] [place] [phone] Faith Ellis M.D. [address] [place] [phone] 04/05/2025 8:30 AM ADVANCE SEAL DELIVERY SYSTEM MAINTAINER Lab Department of Oncology in [place], [place] [address] [place] [phone] Kadeem Marshall P.A.-C., M.S. [address] [place] [phone] 04/05/2025 10:40 AM ADVANCE SEAL DELIVERY SYSTEM MAINTAINER Office Visit Department of Oncology in [place], [place] [address] [place] [phone] Kadeem Marshall P.A.-C., M.S. [address] [place] [phone] 04/05/2025 1:00 PM ADVANCE SEAL DELIVERY SYSTEM MAINTAINER Infusion Department of Oncology in [place], [place] [address] [place] [phone] Kadeem Marshall P.A.-C., M.S. [address] [place] [phone] 04/06/2025 10:00 AM ADVANCE SEAL DELIVERY SYSTEM MAINTAINER Comprehensive Visit Department of Palliative Care in [place], [place] [address] [place] [phone] Ana Rosa Hurtado APRN, C.N.PAlpesh, D.N.P. [address] [place] [phone] 04/30/2025 7:15 AM ADVANCE SEAL DELIVERY SYSTEM MAINTAINER Lab Department of Oncology in [place], [place] [address] [place] [phone] Kadeem Marshall P.A.-C., M.S. [address] [place] [phone] 04/30/2025 9:20 AM ADVANCE SEAL DELIVERY SYSTEM MAINTAINER Office Visit Department of Oncology in [place], [place] [address] [place] [phone] Kadeem Marshall P.A.-C., M.S. [address] [place] [phone] 04/30/2025 2:30 PM ADVANCE SEAL DELIVERY SYSTEM MAINTAINER Infusion Department of Oncology in [address] [phone] Kadeem Marshall P.A.-C., M.S. [address] [place] [phone] 05/21/2025 11:00 AM ADVANCE SEAL DELIVERY SYSTEM MAINTAINER Lab Department of Oncology in [address] [address] Kadeem Marshall P.A.-C., M.S. [address] [place] [phone] 05/21/2025 1:20 PM ADVANCE SEAL DELIVERY SYSTEM MAINTAINER Office Visit Department of Oncology in [address] [phone] Kadeem Marshall P.A.-C., M.S. [address] [place] [phone] 05/21/2025 2:00 PM ADVANCE SEAL DELIVERY SYSTEM MAINTAINER Infusion Department of Oncology in [address] [phone] Kadeem Marshall P.A.-C., M.S. [address] [place] [address] documented as of this encounter Visit Diagnoses Not on filedocumented in this encounter Additional Health Concerns Infection Onset Date Last Indicated Resolved Time Protective Environment 06/02/2024 06/02/2024 documented as of this encounter Care Teams Flame Channeler Relationship Specialty Start Date End Date Elsewhere, Pcp PCP - General Internal Medicine 03/08/24 documented as of this encounter
--- OUTSIDE RECORDS SUMMARY | 2025-03-09 16:19 | XMS_ITS | Encounter Summary ---
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 [address] [place] [address] Phone: tel: fax: [facility] Region Referral ID Status Reason Start Date Expiration Date Visits Re quested Visits Authorized [id number] Closed 03/05/2025 06/05/2026 1 1 O CERTIFIED INTERNETWORK EXPERT Encounter Details Date Type Department Care Team (Latest Contact Info) Description 03/05/2025 Clinical Communication Department of Gastroenterology in [place], [place] [address] [place] [address] Marquise Gill M.D. [address] [place] [address] Social History Tobacco Use Types Packs/Day Years Used Date Smoking Tobacco: Never Passive Smoke Exposure: Never Smokeless Tobacco: Never Alcohol Use Standard Drinks/Week Comments Not Currently 0 (1 standard drink = 0.6 oz pur e alcohol) [facility] Utilities Answer Date Recorded In [...] your living situation today? I have a [facility] place to live 2024 Education [...] Marquise Gill M.D. 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 She has worsening distension, confirmed to be ascites on CT scan. ER requesting paracentesis. Will have her on our schedule tomorrow for therapeutic paracentesis. O CERTIFIED INTERNETWORK EXPERT documented in this encounter Plan of Treatment Upcoming Encounters Date Type Department Care Team (Latest Contact Info) Description 03/12/2025 11:30 AM CISCO CERTIFIED INTERNETWORK EXPERT Appointment Department of Gastroenterology in [address] [phone] Marquise Gill M.D. [address] [place] [phone] Kala Woo APRN, C.N.P., D.N.P., M.S.N. [address] [place] [phone] Discharge Disposition: Home or Self Care 03/12/2025 3:30 PM CISCO CERTIFIED INTERNETWORK EXPERT Appointment Department of Radiation Oncology in [address] [phone] Faith Ellis M.D. [address] [place] [phone] 03/13/2025 3:45 PM CISCO CERTIFIED INTERNETWORK EXPERT Appointment Department of Radiation Oncology in [place] [address] [place] [address] Faith Ellis M.D. [address] [place] [phone] 03/14/2025 3:30 PM CISCO CERTIFIED INTERNETWORK EXPERT Appointment Department of Radiation Oncology in [place], [place] [address] [place] [phone] Faith Ellis M.D. [address] [place] [phone] 03/14/2025 3:45 PM CISCO CERTIFIED INTERNETWORK EXPERT Appointment Department of Radiation Oncology in [place], [place] [address] [place] [phone] Sandro Guerrero M.D. [address] [place] [phone] 03/15/2025 8:30 AM CISCO CERTIFIED INTERNETWORK EXPERT Lab Department of Laboratory Medicine and Pathology, [facility] in [place], [place] [address] [place] [phone] Kadeem Marshall P.A.-C., M.S. [address] [place] [phone] 03/15/2025 9:40 AM CISCO CERTIFIED INTERNETWORK EXPERT Education Department of Oncology in [address] [phone] Kadeem Marshall P.A.-C., M.S. [address] [place] [phone] 03/15/2025 10:30 AM CISCO CERTIFIED INTERNETWORK EXPERT Infusion Department of Oncology in [place], [place] [address] [place] [phone] Kadeem Marshall P.A.-C., M.S. [address] [place] [phone] 03/15/2025 2:25 PM CISCO CERTIFIED INTERNETWORK EXPERT Appointment Department of Cardiovascular Diseases in [place], [place] [address] [place] [phone] Kadeem Marshall P.A.-C., M.S. [address] [place] [phone] Discharge Disposition: Home or Self Care 03/15/2025 3:30 PM CISCO CERTIFIED INTERNETWORK EXPERT Appointment Department of Radiation Oncology in [place], [place] [address] [place] [phone] Faith Ellis M.D. [address] [place] [phone] 03/16/2025 3:30 PM CISCO CERTIFIED INTERNETWORK EXPERT Appointment Department of Radiation Oncology in [place], [place] [address] [place] [phone] Faith Ellis M.D. [address] [place] [phone] 04/05/2025 8:30 AM CISCO CERTIFIED INTERNETWORK EXPERT Lab Department of Oncology in [place], [place] [address] [place] [phone] Kadeem Marshall P.A.-C., M.S. [address] [place] [phone] 04/05/2025 10:40 AM CISCO CERTIFIED INTERNETWORK EXPERT Office Visit Department of Oncology in [place], [place] [address] [place] [phone] Kadeem Marshall P.A.-C., M.S. [address] [place] [phone] 04/05/2025 1:00 PM CISCO CERTIFIED INTERNETWORK EXPERT Infusion Department of Oncology in [place], [place] [address] [place] [phone] Kadeem Marshall P.A.-C., M.S. [address] [place] [phone] 04/06/2025 10:00 AM CISCO CERTIFIED INTERNETWORK EXPERT Comprehensive Visit Department of Palliative Care in [place], [place] [address] [place] [phone] Ana Rosa Hurtado APRN, C.N.P., D.N.P. [address] [place] [phone] 04/30/2025 7:15 AM CISCO CERTIFIED INTERNETWORK EXPERT Lab Department of Oncology in [place], [place] [address] [place] [phone] Kadeem Marshall P.A.-C., M.S. [address] [place] [phone] 04/30/2025 9:20 AM CISCO CERTIFIED INTERNETWORK EXPERT Office Visit Department of Oncology in [place], [place] [address] [place] [phone] Kadeem Marshall P.A.-C., M.S. [address] [place] [phone] 04/30/2025 2:30 PM CISCO CERTIFIED INTERNETWORK EXPERT Infusion Department of Oncology in [address] [phone] Kadeem Marshall P.A.-C., M.S. [address] [place] [phone] 05/21/2025 11:00 AM CISCO CERTIFIED INTERNETWORK EXPERT Lab Department of Oncology in [place], [place] [address] [place] [phone] Kadeem Marshall P.A.-C., M.S. [address] [place] [phone] 05/21/2025 1:20 PM CISCO CERTIFIED INTERNETWORK EXPERT Office Visit Department of Oncology in [place], [place] [address] [place] [phone] Kadeem Marshall P.A.-C., M.S. [address] [place] [phone] 05/21/2025 2:00 PM CISCO CERTIFIED INTERNETWORK EXPERT Infusion Department of Oncology in [place], [place] [address] [place] [phone] Kadeem Marshall P.A.-C., M.S. 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
--- OUTSIDE RECORDS SUMMARY | 2025-03-09 16:19 | XMS_ITS | Encounter Summary ---
Author Organization [facility] Address [address] [place] [address] Care Team Providers Care Clinical Application Specialist Name Role Phone Elsewhere, Pcp Primary Care Provider Unavailabl e Reason for Visit * Reason Onset Date Comments Abdominal Pain 03/05/2025 Encounter Details Date Type Department Care Team (Latest Contact Info) Description 03/05/2025 Clinical Communication Department of Oncology in [place], [place] [address] [place] [address] Kadeem Marshall P.A.-C., M.S. [address] [place] [address] Abdominal Pain Social History Tobacco Use Types [...] things needed for daily living? No 03/07/2025 [facility] Utilities Answer Date Recorded In the past 12 months has [employer] electric, gas, oil, or water company threatened to shut off services in your home? No 03/07/2025 Housing Stability Answer Date Recorded What is your living situation today? I have a [facility] place to live 03/07/2025 Education Answer Date [...] [place]ows M.SSaji., R.N. - 03/05/2025 1:28 PM TAIL RIPPER SUBJECTIVE CHIEF COMPLAINT / REASON FOR CALL [...] her sister to drive her. She will [facility]. All questions and concerns heard and addressed. Disposition/Recommendation: recommended to report to the nearest emergency department. Information/Education: patient/caller able to teach back. Caller agreeable to plan of care: yes. The following references were used: nursing clinical judgement and previous plan of care date: 03/01. RIPPER documented in this encounter Plan of Treatment Upcoming Encounters Date Type Department Care Team (Latest Contact Info) Description 03/12/2025 11:30 AM TAIL RIPPER Appointment Department of Gastroenterology in [address] [phone] Marquise Gill M.D. [address] [place] [phone] Kala Woo, DALIA, C.N.P., D.N.P., M.S.N. [address] [place] [phone] Discharge Disposition: Home or Self Care 03/12/2025 3:30 PM TAIL RIPPER Appointment Department of Radiation Oncology in [address] [phone] [place] [address] 03/13/2025 3:45 PM TAIL RIPPER Appointment Department of Radiation Oncology in [place] [address] [place] [phone] Faith Ellis M.D. [address] [place] [phone] 03/14/2025 3:30 PM TAIL RIPPER Appointment Department of Radiation Oncology in [place], [place] [address] [place] [phone] Faith Ellis M.D. [address] [place] [phone] 03/14/2025 3:45 PM TAIL RIPPER Appointment Department of Radiation Oncology in [place], [place] [address] [place] [phone] Sandro Guerrero M.D. [address] [place] [phone] 03/15/2025 8:30 AM TAIL RIPPER Lab Department of Laboratory Medicine and Pathology, [facility] in [place], [place] [address] [place] [address] Kadeem Marshall P.A.-C., M.S. [address] [place] [phone] 03/15/2025 9:40 AM TAIL RIPPER Education Department of Oncology in [place], [place] [address] [place] [address] Kadeem Marshall P.A.-C., M.S. [address] [place] [phone] 03/15/2025 10:30 AM TAIL RIPPER Infusion Department of Oncology in [place], [place] [address] [place] [address] Kadeem Marshall P.A.-C., M.S. [address] [place] [phone] 03/15/2025 2:25 PM TAIL RIPPER Appointment Department of Cardiovascular Diseases in [place], [place] [address] [place] [phone] Kadeem Marshall P.A.-C., M.S. [address] [place] [phone] Discharge Disposition: Home or Self Care 03/15/2025 3:30 PM TAIL RIPPER Appointment Department of Radiation Oncology in [place], [place] [address] [place] [phone] Faith Ellis M.D. [address] [place] [phone] 03/16/2025 3:30 PM TAIL RIPPER Appointment Department of Radiation Oncology in [address] [phone] Faith Ellis M.D. [address] [place] [phone] 04/05/2025 8:30 AM TAIL RIPPER Lab Department of Oncology in [address] [address] Kadeem Marshall P.A.-C., M.S. [address] [place] [phone] 04/05/2025 10:40 AM TAIL RIPPER Office Visit Department of Oncology in [address] [address] Kadeem Marshall P.A.-C., M.S. [address] [place] [phone] 04/05/2025 1:00 PM TAIL RIPPER Infusion Department of Oncology in [address] [address] Kadeem Marshall P.A.-C., M.S. [address] [place] [phone] 04/06/2025 10:00 AM TAIL RIPPER Comprehensive Visit Department of Palliative Care in [place], [place] [address] [place] [address] Ana Rosa Hurtado APRN, C.N.P., D.N.P. [address] [place] [phone] 04/30/2025 7:15 AM TAIL RIPPER Lab Department of Oncology in [place], [place] [address] [place] [phone] Kadeem Marshall P.A.-C., M.S. [address] [place] [phone] 04/30/2025 9:20 AM TAIL RIPPER Office Visit Department of Oncology in [place], [place] [address] [place] [phone] Kadeem Marshall P.A.-C., M.S. [address] [place] [phone] 04/30/2025 2:30 PM TAIL RIPPER Infusion Department of Oncology in [place], [place] [address] [place] [phone] Kadeem Marshall P.A.-C., M.S. [address] [place] [phone] 05/21/2025 11:00 AM TAIL RIPPER Lab Department of Oncology in [place], [place] [address] [place] [phone] Kadeem Marshall P.A.-C., M.S. [address] [place] [phone] 05/21/2025 1:20 PM TAIL RIPPER Office Visit Department of Oncology in [place], [place] [address] [place] [phone] Kadeem Marshall P.A.-C., M.S. [address] [place] [phone] 05/21/2025 2:00 PM TAIL RIPPER Infusion Department of Oncology in [place], [place] [address] [place] [phone] Kadeem Marshall P.A.-C., M.S. [address] [place] [phone] documented as of this encounter Visit Diagnoses Not on filedocumented in this encounter Additional Health Concerns Infection Onset Date Last Indicated Resolved Time Protective Environment 06/02/2024 06/02/2024 documented as of this encounter Care Teams Clinical Application Specialist Relationship Specialty Start Date End Date Elsewhere, Pcp PCP - General Internal Medicine 03/08/24 documented as of this encounter
--- OUTSIDE RECORDS SUMMARY | 2025-03-09 16:20 | XMS_ITS | Encounter Summary ---
Author Organization [facility] Address [address] [place] [address] Care Team Providers Care Fence Post Cutter Name Role Phone Elsewhere, Pcp Primary Care Provider Unavailabl e Reason for Referral * Radiation Therapy (Routine) - Authorized Specialty Diagnoses / Procedures Referred By Edgardo banks Referred To Contact Diagnoses Secondary Malignant Neoplasm Peritoneum (HCC) Procedures Management Visit Faith Ellis M.D. [address] [place] [address] Phone: tel: fax: [facility] Referral ID Status Reason Start Date Expiration Date V isits Requested Visits Authorized [id number] Authorized 03/06/2025 06/06/2026 10 10 CHANGEOVER OPERATOR * Radiation Therapy (Routine) - Authorized Specialty Diagnoses / Procedures Referred By Edgardo banks Referred To Contact Diagnoses Secondary Malignant Neoplasm Peritoneum (HCC) Procedures Initial Rad Onc Treatment Planning CT Simulation CT 3D RAD THER ISODOSE FIELD PLAN SIM Faith Ellis M.D. 200 [place] [address] Phone: tel: fax: [facility] Radiation Oncology at [place] [address] [place] [phone] Referral ID Status Reason Start Date Expiration Date V isits Requested Visits Authorized [id number] Authorized 03/07/2025 03/07/2026 2 2 CHANGEOVER OPERATOR * Radiation Therapy (Routine) - Canceled Specialty Diagnoses / Procedures Referred By Contac t Referred To Contact Diagnoses Secondary Malignant Neoplasm Peritoneum (HCC) Procedures Prior Auth Rad Tx CT RADTN TX DEL >=[address] GUIDANCE FOR LOC RAD TX CT 3D RAD THER ISODOSE FIELD PLAN 3D Faith Ellis M.D. [address] [place] [address] Phone: tel: fax: [facility] Referral ID Status Reason Start Date Expiration Date V isits Requested Visits Authorized [id number] Canceled 03/12/2025 06/06/2026 5 5 CHANGEOVER OPERATOR Encounter Details Date Type Department Care Team (Late st Contact Info) Description 03/06/2025 Orders Only Department of Radiation Oncology in [place], [place] [address] [place] [phone] Raiza Echevarria APRN, C.N.P., D.N.P. [address] [place] [phone] Secondary Malignant Neoplasm Peritoneum (HCC) (Primary Dx) [...] things needed for daily living? No 03/07/2025 [facility] Utilities Answer Date Recorded In the past 12 months has [facility] electric, gas, oil, or water [employer] threatened to shut off services in your home? No 03/07/2025 Housing Stability Answer Date Recorded What is your living situation today? I have a [facility] place to live 03/07/2025 Education Answer [...] (Latest Contact Info) Description 03/12/2025 11:30 AM LOOM CHANGEOVER OPERATOR Appointment Department of Gastroenterology in [place], [place] [address] [place] [address] Marquise Gill M.D. [address] [place] [address] Kala Woo APRN, C.N.P., D.N.P., M.S.N. [address] [place] [phone] Discharge Disposition: Home or Self Care 03/12/2025 3:30 PM LOOM CHANGEOVER OPERATOR Appointment Department of Radiation Oncology in [address] [phone] Faith Ellis M.D. [address] [place] [phone] 03/13/2025 3:45 PM LOOM CHANGEOVER OPERATOR Appointment Department of Radiation Oncology in [address] [phone] Faith Ellis M.D. [address] [place] [phone] 03/14/2025 3:30 PM LOOM CHANGEOVER OPERATOR Appointment Department of Radiation Oncology in [address] [phone] Faith Ellis M.D. [address] [place] [phone] 03/14/2025 3:45 PM LOOM CHANGEOVER OPERATOR Appointment Department of Radiation Oncology in [place], [place] [address] [place] [address] Sandro Guerrero M.D. [address] [place] [phone] 03/15/2025 8:30 AM LOOM CHANGEOVER OPERATOR Lab Department of Laboratory Medicine and Pathology, [facility], in [place], [place] [address] [place] [address] Kadeem Marshall P.A.-C., M.S. [address] [place] [phone] 03/15/2025 9:40 AM LOOM CHANGEOVER OPERATOR Education Department of Oncology in [place], [place] [address] [place] [phone] Kadeem Marshall P.A.-C., M.S. [address] [place] [phone] 03/15/2025 10:30 AM LOOM CHANGEOVER OPERATOR Infusion Department of Oncology in [place], [place] [address] [place] [phone] Kadeem Marshall P.A.-C., M.S. [address] [place] [phone] 03/15/2025 2:25 PM LOOM CHANGEOVER OPERATOR Appointment Department of Cardiovascular Diseases in [place], [place] [address] [place] [phone] Kadeem Marshall P.A.-C., M.S. [address] [place] [phone] Discharge Disposition: Home or Self Care 03/15/2025 3:30 PM LOOM CHANGEOVER OPERATOR Appointment Department of Radiation Oncology in [address] [phone] Faith Ellis M.D. [address] [place] [phone] 03/16/2025 3:30 PM LOOM CHANGEOVER OPERATOR Appointment Department of Radiation Oncology in [address] [phone] Faith Ellis M.D. [address] [place] [phone] 04/05/2025 8:30 AM LOOM CHANGEOVER OPERATOR Lab Department of Oncology in [place], [place] [address] [place] [phone] Kadeem Marshall P.A.-C., M.S. [address] [place] [phone] 04/05/2025 10:40 AM LOOM CHANGEOVER OPERATOR Office Visit Department of Oncology in [place], [place] [address] [place] [phone] Kadeem Marshall P.A.-C., M.S. [address] [place] [phone] 04/05/2025 1:00 PM LOOM CHANGEOVER OPERATOR Infusion Department of Oncology in [place], [place] [address] [place] [phone] Kadeem Marshall P.A.-C., M.S. [address] [place] [phone] 04/06/2025 10:00 AM LOOM CHANGEOVER OPERATOR Comprehensive Visit Department of Palliative Care in [place], [place] [address] [place] [phone] Ana Rosa Hurtado APRN, C.N.P., D.N.P. [address] [place] [phone] 04/30/2025 7:15 AM LOOM CHANGEOVER OPERATOR Lab Department of Oncology in [place], [place] [address] [place] [phone] Kadeem Marshall P.A.-C., M.S. [address] [place] [phone] 04/30/2025 9:20 AM LOOM CHANGEOVER OPERATOR Office Visit Department of Oncology in [place], [place] [address] [place] [phone] Kadeem Marshall P.A.-C., M.S. [address] [place] [phone] 04/30/2025 2:30 PM LOOM CHANGEOVER OPERATOR Infusion Department of Oncology in [place], [place] [address] [place] [phone] Kadeem Marshall P.A.-C., M.S. [address] [place] [phone] 05/21/2025 11:00 AM LOOM CHANGEOVER OPERATOR Lab Department of Oncology in [address] [phone] Kadeem Marshall P.A.-C., M.S. [address] [place] [phone] 05/21/2025 1:20 PM LOOM CHANGEOVER OPERATOR Office Visit Department of Oncology in [address] [phone] Kadeem Marshall P.A.-C., M.S. [address] [place] [phone] 05/21/2025 2:00 PM LOOM CHANGEOVER OPERATOR Infusion Department of Oncology in [address] [phone] Kadeem Marshall P.A.-C., M.S. [address] [place] [phone] Scheduled Orders Name Type Priority Associated Diagnoses Order Schedule Prior Auth Rad Tx Radiation Oncology Routine Secondary Malignant Neoplasm Peritoneum (HCC) Ordered: 03/06/2025 Management Visit Radiation Oncology Routine Secondary Malignant Neoplasm Peritoneum (HCC) 10 Occurrences starting 03/06/2025 until 06/06/2026 documented as of this encounter Results * Initial Rad Onc Treatment Planning CT Simulation (03/07/2025 2:00 PM LOOM CHANGEOVER OPERATOR) Narrative KARL MULLINS - 03/07/2025 2:00 PM LOOM CHANGEOVER OPERATOR Faith Ellis M.D. 03/07/2025 3:41 PM Initial [...] planning. CT images were transferred to the Digg treatment planning system, after a reference isocenter was determined and marked. Segmentation and treatment planning will take place prior to treatment delivery. Patient set up and imaging was appropriate and completed without incident. Video Camera Operator use:No Faith Ellis M.D. RADIATION ONCOLOGY ORDERA BLES Final Result KARL MULLINS na documented in this encounter Visit Diagnoses Diagnosis Secondary Malignant Neoplasm Peritoneum (HCC)- Primary Secondary Malignant Neoplasm Peritoneum (HCC) documented in this encounter Additional Health Concerns Infection Onset Date Last Indicated Resolved Time Protective Environment 06/02/2024 06/02/2024 documented as of this encounter Care Teams Fence Post Cutter Relationship Specialty Start Date End Date Elsewhere, Pcp PCP - General Internal Medicine 03/08/24 documented as of this encounter
--- OUTSIDE RECORDS SUMMARY | 2025-03-09 16:20 | XMS_ITS | Encounter Summary ---
Author Organization [facility] Address [address] [place] [address] Care Team Providers Care Supervisor Ticket Sales Name Role Phone Elsewhere, Pcp Primary Care Provider Unavailabl e Encounter Details Date Type Department Care Team (Late st Contact Info) Description 03/06/2025 Clinical Communication Department of Oncology in [place], [place] [address] [place] [address] Kadeem Marshall, P.Jessica.-C., M.S. [address] [place] [phone] Social History Tobacco Use Types Packs/Day Years [...] things needed for daily living? No 03/07/2025 [facility] Utilities Answer Date Recorded In the past 12 months has th e electric, gas, oil, or water company threatened to shut off services in your home? No 03/07/2025 Housing Stability Answer Date Recorded What is your living situation today? I have a [facility] place to live 03/07/2025 Education Answer [...] (Latest Contact Info) Description 03/12/2025 11:30 AM MUSEUM TECHNICIAN Appointment Department of Gastroenterology in [place], [place] [address] [place] [phone] Marquise Gill M.D. [address] [place] [phone] Kala Woo APRN, C.N.P., D.N.P., M.S.N. [address] [place] [address] Discharge Disposition: Home or Self Care 03/12/2025 3:30 PM MUSEUM TECHNICIAN Appointment Department of Radiation Oncology in [address] [phone] Faith Ellis M.D. [address] [place] [phone] 03/13/2025 3:45 PM MUSEUM TECHNICIAN Appointment Department of Radiation Oncology in [address] [phone] Faiht Ellis M.D. [address] [place] [phone] 03/14/2025 3:30 PM MUSEUM TECHNICIAN Appointment Department of Radiation Oncology in [address] [phone] Faith Ellis M.D. [address] [place] [phone] 03/14/2025 3:45 PM MUSEUM TECHNICIAN Appointment Department of Radiation Oncology in [address] [phone] Sandro Guerrero M.D. [address] [place] [phone] 03/15/2025 8:30 AM MUSEUM TECHNICIAN Lab Department of Laboratory Medicine and Pathology, [facility], in [place], [place] [address] [place] [phone] Kadeem Marshall P.A.-C., M.S. [address] [place] [phone] 03/15/2025 9:40 AM MUSEUM TECHNICIAN Education Department of Oncology in [place], [place] [address] [place] [phone] Kadeem Marshall P.A.-C., M.S. [address] [place] [phone] 03/15/2025 10:30 AM MUSEUM TECHNICIAN Infusion Department of Oncology in [place], [place] [address] [place] [phone] Kadeem Marshall P.A.-C., M.S. [address] [place] [phone] 03/15/2025 2:25 PM MUSEUM TECHNICIAN Appointment Department of Cardiovascular Diseases in [place], [place] [address] [place] [phone] Kadeem Marshall P.A.-C., M.S. [address] [place] [phone] Discharge Disposition: Home or Self Care 03/15/2025 3:30 PM MUSEUM TECHNICIAN Appointment Department of Radiation Oncology in [address] [phone] Faith Ellis M.D. [address] [place] [phone] 03/16/2025 3:30 PM MUSEUM TECHNICIAN Appointment Department of Radiation Oncology in [place] [address] [place] [phone] Faith Ellis M.D. [address] [place] [phone] 04/05/2025 8:30 AM MUSEUM TECHNICIAN Lab Department of Oncology in [place], [place] [address] [place] [phone] Kadeem Marshall P.A.-C., M.S. [address] [place] [phone] 04/05/2025 10:40 AM MUSEUM TECHNICIAN Office Visit Department of Oncology in [place], [place] [address] [place] [phone] Kadeem Marshall P.A.-C., M.S. [address] [place] [phone] 04/05/2025 1:00 PM MUSEUM TECHNICIAN Infusion Department of Oncology in [place], [place] [address] [place] [phone] Kadeem Marshall P.A.-C., M.S. [address] [place] [phone] 04/06/2025 10:00 AM MUSEUM TECHNICIAN Comprehensive Visit Department of Palliative Care in [place], [place] [address] [place] [phone] Ana Rosa Hurtado APRN, C.N.P., D.N.P. [address] [place] [phone] 04/30/2025 7:15 AM MUSEUM TECHNICIAN Lab Department of Oncology in [place], [place] [address] [place] [phone] Kadeem Marshall P.A.-C., M.S. [address] [place] [phone] 04/30/2025 9:20 AM MUSEUM TECHNICIAN Office Visit Department of Oncology in [place], [place] [address] [place] [phone] Kadeem Marshall P.A.-C., M.S. [address] [place] [phone] 04/30/2025 2:30 PM MUSEUM TECHNICIAN Infusion Department of Oncology in [place], [place] [address] [place] [phone] Kadeem Marshall P.A.-C., M.S. [address] [place] [phone] 05/21/2025 11:00 AM MUSEUM TECHNICIAN Lab Department of Oncology in [address] [address] Kadeem Marshall P.A.-C., M.S. [address] [place] [phone] 05/21/2025 1:20 PM MUSEUM TECHNICIAN Office Visit Department of Oncology in [address] [phone] Kadeem Marshall P.A.-C., M.S. [address] [place] [phone] 05/21/2025 2:00 PM MUSEUM TECHNICIAN Infusion Department of Oncology in [address] [phone] Kadeem Marshall P.A.-C., M.S. [address] [place] [phone] documented as of this encounter Visit Diagnoses Not on filedocumented in this encounter Additional Health Concerns Infection Onset Date Last Indicated Resolved Time Protective Environment 06/02/2024 06/02/2024 documented as of this encounter Care Teams Supervisor Ticket Sales Relationship Specialty Start Date End Date Elsewhere, Pcp PCP - General Internal Medicine 03/08/24 documented as of this encounter
--- OUTSIDE RECORDS SUMMARY | 2025-03-09 16:21 | XMS_ITS | Encounter Summary ---
Author Organization [facility] Address [address] [place] [address] Care Team Providers Care Inside Sales Recruiter Name Role Phone Elsewhere, Pcp Primary Care Provider Unavailabl e Encounter Details Date Type Department Care Team (Latest Contact Info) Description 03/07/2025 Results Follow-Up Department of Gastroenterology in [place], [place] [address] [place] [phone] Marquise Gill M.D. [address] [place] [phone] Cell Count and Differential, Body Fluid, Albumin, Body Fluid, Protein, Total, Body Fluid, Cytology Non-COMPUTED TOMOGRAPHY TECHNOLOGIST Social History Tobacco Use Types Packs/Day Years [...] things needed for daily living? No 03/07/2025 [facility] Utilities Answer Date Recorded In the past 12 months has [facility] electric, gas, oil, or water [...] (Latest Contact Info) Description 03/12/2025 11:30 AM DATA ARCHITECT Appointment Department of Gastroenterology in [place], [place] [address] [place] [phone] Marquise Gill M.D. [address] [place] [phone] Kala Woo APRN, C.NMoris., Paula.Roula.P., M.S.N. [address] [place] [phone] Discharge Disposition: Home or Self Care 03/12/2025 3:30 PM DATA ARCHITECT Appointment Department of Radiation Oncology in [place], [place] [address] [place] [phone] Faith Ellis M.D. [address] [place] [phone] 03/13/2025 3:45 PM DATA ARCHITECT Appointment Department of Radiation Oncology in [place] [id number] [place] [phone] Faith Ellis M.D. [address] [place] [phone] 03/14/2025 3:30 PM DATA ARCHITECT Appointment Department of Radiation Oncology in [address] [phone] Faith Ellis M.D. [address] [place] [phone] 03/14/2025 3:45 PM DATA ARCHITECT Appointment Department of Radiation Oncology in [place], [place] [address] [place] [phone] Sandro Guerrero M.D. [address] [place] [phone] 03/15/2025 8:30 AM DATA ARCHITECT Lab Department of Laboratory Medicine and Pathology, [facility], in [place], [place] [address] [place] [phone] Kadeem Marshall P.A.-C., M.S. [address] [place] [phone] 03/15/2025 9:40 AM DATA ARCHITECT Education Department of Oncology in [place], [place] [address] [place] [phone] Kadeem Marshall P.A.-C., M.S. [address] [place] [phone] 03/15/2025 10:30 AM DATA ARCHITECT Infusion Department of Oncology in [place], [place] [address] [place] [phone] Kadeem Marshall P.A.-C., M.S. [address] [place] [phone] 03/15/2025 2:25 PM DATA ARCHITECT Appointment Department of Cardiovascular Diseases in [place], [place] [address] [place] [phone] Kadeem Marshall P.A.-C., M.S. [address] [place] [phone] Discharge Disposition: Home or Self Care 03/15/2025 3:30 PM DATA ARCHITECT Appointment Department of Radiation Oncology in [address] [phone] Faith Ellis M.D. [address] [place] [phone] 03/16/2025 3:30 PM DATA ARCHITECT Appointment Department of Radiation Oncology in [place], [place] [address] [place] [phone] Faith Ellis M.D. [address] [place] [phone] 04/05/2025 8:30 AM DATA ARCHITECT Lab Department of Oncology in [place], [place] [address] [place] [phone] Kadeem Marshall P.A.-C., M.S. [address] [place] [phone] 04/05/2025 10:40 AM DATA ARCHITECT Office Visit Department of Oncology in [place], [place] [address] [place] [phone] Kadeem Marshall P.A.-C., M.S. [address] [place] [phone] 04/05/2025 1:00 PM DATA ARCHITECT Infusion Department of Oncology in [place], [place] [address] [place] [phone] Kadeem Marshall P.A.-C., M.S. [address] [place] [phone] 04/06/2025 10:00 AM DATA ARCHITECT Comprehensive Visit Department of Palliative Care in [place], [place] [address] [place] [phone] Ana Rosa Hurtado APRN, C.N.P., D.N.P. [address] [place] [phone] 04/30/2025 7:15 AM DATA ARCHITECT Lab Department of Oncology in [place], [place] [address] [place] [phone] Kadeem Marshall P.A.-C., M.S. [address] [place] [phone] 04/30/2025 9:20 AM DATA ARCHITECT Office Visit Department of Oncology in [place], [place] [address] [place] [phone] Kadeem Marshall P.A.-C., M.S. [address] [place] [phone] 04/30/2025 2:30 PM DATA ARCHITECT Infusion Department of Oncology in [place], [place] [address] [place] [phone] Kadeem Marshall P.A.-C., M.S. [address] [place] [phone] 05/21/2025 11:00 AM DATA ARCHITECT Lab Department of Oncology in [place], [place] [address] [place] [phone] Kadeem Marshall P.A.-C., M.S. [address] [place] [phone] 05/21/2025 1:20 PM DATA ARCHITECT Office Visit Department of Oncology in [place], [place] [address] [place] [phone] Kadeem Marshall P.A.-C., M.S. [address] [place] [phone] 05/21/2025 2:00 PM DATA ARCHITECT Infusion Department of Oncology in [place], [place] [address] [place] [phone] Kadeem Marshall P.A.-C., M.S. [address] [place] [phone] documented as of this encounter Visit Diagnoses Not on filedocumented in this encounter Additional Health Concerns Infection Onset Date Last Indicated Resolved Time Protective Environment 06/02/2024 06/02/2024 documented as of this encounter Care Teams Inside Sales Recruiter Relationship Specialty Start Date End Date Elsewhere, Pcp PCP - General Internal Medicine 03/08/24 documented as of this encounter
--- OUTSIDE RECORDS SUMMARY | 2025-03-09 16:22 | XMS_ITS | Clinical Summary ---
Author Organization [facility] Address [address] [place] [address] Care Team Providers Care Radio Control Crane Operator Name Role Phone Elsewhere, Pcp Primary Care Provider Unavailabl e Source Comments Patient records contain information from all sites at [facility]. For routine questions regarding patient records, call [phone] during business hours, M-F 8:00 AM - 5:00 PM Central Time. Record requests for emergency care only can be directed to [phone] at any time.[facility] Allergies Active Allergy Reactions Criticality Noted Date [...] a day as needed for flatulence (Bloating). 08/04/19 Active Additional Information Patient taking differently:80 mg oral 4 times daily PRN, flatulence, Bloating,HASN'T NEEDED FOR SEVERAL MONTHS, Reported on 03/07/2025 acetaminophen (TYLENOL) 500 mg tablet Take 2 tablets (1,000 mg total) by mouth every 6 (six) hours as needed for pain. 06/03/19 24 Active cholecalcifero l (VITAMIN D3) 50 mcg (2,000 Unit) capsule Take 50 mcg by mouth daily. Active oxyCODONE (ROXICODONE) 5 mg immediate release tabletIndicati ons:Acute Pain Take 1 tablet (5 mg total) by mouth every 4 (four) hours as needed for severe pain or score 7-10 of 10 (for breakthrough pain) Indication: Acute Pain. 10 tablet 4 1:52 PM CDT 09/16/19 24 Active Additional Information Patient not taking.Reported on 03/07/2025 loperamide (Imodium A-D) 2 mg capsule Take 1 capsule (2 mg total) by mouth 4 (four) times a day as needed for diarrhea. 60 capsule 11 4 1:07 PM CDT 11/05/19 24 Active Additional Information Patient taking differently:2 mg oral 4 times daily PRN, diarrhea,HASN'T NEEDED FOR A FEW MONTHS, Reported on 03/07/2025 penciclovir (Denavir) 1 % cream Apply 1 Application topically every 2 (two) hours as needed (Cold Sores). 1.5 g 01/14/20 24 Active Additional Information Patient taking differently:1 Application topical Every 2 hour PRN, Cold Sores,HASN'T NEEDED FOR SEVERAL MONTHS, Reported on 03/07/2025 ascorbic acid, vitamin C, (ascorbic acid) 500 mg tablet Take 500 mg by mouth daily. Active losartan (Cozaar) 25 mg tablet Take 1 tablet (25 mg total) by mouth daily. 30 tablet 2 09/23/19 25 Active Additional Information Patient not taking.Reported on 03/07/2025 loperamide (Imodium A-D) 2 mg capsule Take 1 capsule (2 mg total) by mouth 4 (four) times a day as needed for diarrhea. 90 capsule 2 10/06/19 25 Active OLANZapine (ZyPREXA) 5 mg tablet Take 1 tablet (5 mg total) by mouth at bedtime. 30 tablet 10/19/19 25 Active Additional Information Patient not taking.Informant: Self, Reported on 03/07/2025 ondansetron (Zofran) 8 mg tabletIndicati ons:Malignant Neoplasm Of Cecum (HCC) Take 1 tablet (8 mg total) by mouth every 8 (eight) hours as needed for nausea or vomiting. 30 tablet 3 5 12:36 PM CDT 11/18/192025 Active Additional Information Patient not taking.Reason: Side effects, Informant: Self, Reported on 03/07/2025 prochlorperazi ne (Compazine) 10 mg tabletIndicati ons:Malignant Neoplasm Of Cecum (HCC) Take 1 tablet (10 mg total) by mouth every 6 (six) hours as needed for nausea or vomiting (unrelieved by ondansetron). 30 tablet 3 5 12:36 PM CDT 11/18/192025 Active LORazepam (Ativan) 0.5 mg tablet Take 1 tablet (0.5 mg total) by mouth 2 (two) times a day as needed (nausea). Post chemotherapy 20 tablet 12/01/19 25 Active cholecalcifero l, vitD3,/vit K2 (VITAMIN D3-VITAMIN [...] at bedtime for 10 days. 40 capsule 01/28/20 Active UNABLE TO FIND Take by mouth. [...] 4 days on 3 days off Active celecoxib (CeleBREX) 50 mg capsule Take 50 mg by mouth 2 (two) times a day. Unsure of dose Active ciprofloxacin (Cipro) 500 mg tabletIndicati ons:Secondary Malignant Neoplasm Peritoneum (HCC),Peritoni tis Unspecified (HCC) Take 1 tablet (500 mg total) by mouth 2 (two) times a day for 5 days. 10 tablet 03/06/20 25 2024 Active tucatinib (Tukysa) 150 mg tabletIndicati ons:Malignant Neoplasm Of Cecum (HCC) Take 1 tablet (150 mg total) by mouth 2 (two) times a day. Take with two 50mg tablets (100mg) for a total of 250mg. Take approximately 12hrs apart and at same time each day with or without a meal. Swallow tabs whole and do not chew, crush, or split prior to swallowing. 60 tablet 03/15/20 25 2024 Active tucatinib (Tukysa) 50 mg tabletIndicati ons:Malignant Neoplasm Of Cecum (HCC) Take 2 tablets (100 mg total) by mouth 2 (two) times a day. Take with one 150 mg tablet for a total of 250mg. Take approximately 12hrs apart and at same time each day with or without a meal. Swallow tabs whole and do not chew, crush, or split prior to swallowing. 120 tablet 03/15/20 25 2024 Active oxyCODONE (Roxicodone) 5 mg immediate release tabletIndicati ons:Chronic Pain/Nonacute Pain Take 1-2 tablets (5-10 mg total) by mouth every 4 (four) hours as needed for pain Indication: Chronic Pain/Nonacute Pain. 30 tablet 03/09/20 Active tucatinib (Tukysa) 50 mg tabletIndicati ons:Malignant Neoplasm Of Cecum (HCC) Take 5 tablets (250 mg total) by mouth 2 (two) times a day. Take approximately 12hrs apart and at same time each day with or without a meal. Swallow tabs whole and do not chew, crush, or split prior to swallowing. 300 tablet 03/09/20 25 2024 Discontinued Hospital, Clinic, or Other Facility Administered Medication [...] symptoms. Patient was instructed to discontinue all [id number]-bdqvgcl vitamins and supplements, aspirin and NSAID containing products until after surgery is complete. If she needs anything for pain she was instructed to use Tylenol. 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 on 02/11/2024 Overview (07/20/2022): Added automatically from request for surgery [id number] Assessment & Plan (07/21/2022 11:15 AM CDT): [...] Encounters Date Type Department Care Team Description 03/09/2025 Documentation Department of Oncology in [place], [place] [address] [place] [address] Chelly Starr, Pharm.D., R.Ph. Chemotherapy 03/09/2025 Orders Only Department of Oncology in [place], [place] [address] [place] [address] Chelly Starr, Pharm.D., R.Ph. Malignant Neoplasm Of Cecum (HCC) (Primary Dx) 03/09/2025 Clinical Communication [facility] [address] [place] [address] Dario Almaguer, Pharm.D., R.Ph. New Tukysa Rxs needed 03/09/2025 Orders Only Department of Radiation Oncology in [address] [address] Faith Ellis M.D. Secondary Malignant Neoplasm Peritoneum (HCC) (Primary Dx) 03/09/2025 Clinical Communication Department of Oncology in [place], [place] [address] [place] [address] Lynn Meadows M.SSaji., R.N. 03/09/2025 Orders Only Department of Radiation Oncology in [address] [address] Faith Ellis M.D. Secondary Malignant Neoplasm Peritoneum (HCC) (Primary Dx) 03/09/2025 Clinical Communication Department of Radiation Oncology in [address] [address] Faith Ellis M.D. 03/07/2025 1:43 PM CURRICULUM COACH - 03/07/2025 3:41 PM CURRICULUM COACH Hospital Encounter Department of Radiation Oncology in [place], [place] [address] [place] [address] Faith Ellis M.D. Secondary Malignant Neoplasm Peritoneum (HCC) 03/07/2025 12:45 PM CURRICULUM COACH - 03/07/2025 1:42 PM CURRICULUM COACH Hospital Encounter Department of Radiation Oncology in [address] [address] Faith Ellis M.D. Malignant Neoplasm Of Cecum (HCC) (Primary Dx); Secondary Malignant Neoplasm Peritoneum (HCC); Secondary Malignant Neoplasm Soft Tissue (HCC) 03/07/2025 Results Follow-Up Department of Gastroenterology in [address] [address] Marquise Gill M.D. Cell Count and Differential, Body Fluid, Albumin, Body Fluid, Protein, Total, Body Fluid, Cytology Non-DAY HABILITATION SPECIALIST 03/06/2025 10:32 AM CURRICULUM COACH - 03/06/2025 11:59 PM CURRICULUM COACH Hospital Encounter Department of Gastroenterology in [address] [address] Marquise Gill M.D. Secondary Malignant Neoplasm Peritoneum (HCC) (Primary Dx); Malignant Neoplasm Of Cecum (HCC); Ascites Chronic; Peritonitis Unspecified (HCC) Discharge Disposition: Home or Self Care 03/06/2025 Orders Only Department of Radiation Oncology in [address] [address] Raiza Echevarria APRN, C.N.P., D.N.P. Secondary Malignant Neoplasm Peritoneum (HCC) (Primary Dx) 03/06/2025 Clinical Communication Department of Oncology in [address] [address] Kadeem Marshall P.A.Jhon., M.S. 03/05/2025 12:43 PM CURRICULUM COACH - 03/05/2025 3:05 PM CURRICULUM COACH Emergency [facility] [address] [place] [phone] Tyesha Rose APRN, C.N.PAlpesh Abdominal Pain (Primary Dx); Ascites Malignant (HCC) Discharge Disposition: Home or Self Care 03/05/2025 Clinical Communication Department of Gastroenterology in [address] [address] Marquise Gill M.D. 03/05/2025 Clinical Communication Department of Oncology in [address] [address] Kadeem Marshall P.A.-C., M.S. Abdominal Pain 02/28/2025 Clinical Communication Department of Oncology in [address] [address] Kadeem Marshall P.A.-C., M.S. Med Refill ([facility]) 02/23/2025 10:00 AM CDT Infusion Department of Oncology in [address] [address] Kadeem Marshall P.A.-C., M.S. Malignant Neoplasm Of Cecum (HCC); Secondary Malignant Neoplasm Peritoneum (HCC) 02/23/2025 9:20 AM CDT Office Visit Department of Oncology in [address] [address] Kadeem Marshall P.A.-C., M.S. Malignant Neoplasm Of Cecum (HCC) (Primary Dx); Secondary Malignant Neoplasm Peritoneum (HCC); Examination Prior To Chemotherapy 02/23/2025 6:45 AM CDT Lab Department of Oncology in [place], [place] [address] [place] [phone] Kadeem Marshall P.A.-C., M.S. Malignant Neoplasm Of Cecum (HCC) (Primary Dx); Secondary Malignant Neoplasm Peritoneum (HCC); Secondary Malignant Neoplasm Liver (HCC) 02/22/2025 11:01 AM CDT - 02/22/2025 11:59 PM CDT Hospital Encounter Department of Radiology in [address] [phone] Kadeem Marshall P.A.-C., M.S. Secondary Malignant Neoplasm Liver (HCC) Discharge Disposition: Home or Self Care 02/01/2025 Orders Only Department of Infusion Therapy in [address] [address] Katherine King RSaji. Malignant Neoplasm Of Cecum (HCC) (Primary Dx) 02/01/2025 Orders Only Department of Oncology in [address] [address] Kadeem Marshall P.A.-C., M.S. 01/27/2025 4:38 PM CDT - 01/27/2025 6:30 PM CDT Emergency [facility] [address] [place] [phone] Christopher Arteaga APRN, C.N.Ezequiel, D.N.P. Postherpetic Trigeminal Neuralgia (Primary Dx) Discharge Disposition: Home or Self Care 01/27/2025 2:45 PM CDT Infusion Department of Infusion Therapy in [address] [address] Kadeem Marshall P.A.-C., M.S. Malignant Neoplasm Of Cecum (HCC) (Primary Dx); Secondary Malignant Neoplasm Peritoneum (HCC) Discharge Disposition: Home or Self Care 01/27/2025 Clinical Communication Department of Infusion Therapy in [address] [address] Kevin Tuttle, MT-, R.N. 01/25/2025 1:00 PM CDT Infusion Department of Oncology in [address] [address] Kadeem Marshall P.A.-C., M.S. Malignant Neoplasm Of Cecum (HCC) (Primary Dx); Secondary Malignant Neoplasm Peritoneum (HCC) 01/25/2025 11:00 AM CDT Office Visit Department of Oncology in [address] [phone] Shahana Castillo M.D. Malignant Neoplasm Of Cecum (HCC) (Primary Dx); Secondary Malignant Neoplasm Peritoneum (HCC); Secondary Malignant Neoplasm Liver (HCC) 01/25/2025 8:00 AM CDT Lab Department of Oncology in [address] [phone] Kadeem Marshall P.A.-C., M.SAlpesh Malignant Neoplasm Of Cecum (HCC) (Primary Dx); Secondary Malignant Neoplasm Peritoneum (HCC) 01/13/2025 3:00 PM CDT Infusion Department of Infusion Therapy in [place], [place] [address] [place] [phone] Preet Segura M.D. Secondary Malignant Neoplasm Peritoneum (HCC) (Primary Dx); Malignant Neoplasm Of Cecum (HCC) 01/11/2025 1:15 PM CDT Infusion Department of Oncology in [address] [phone] Preet Segura M.D. Secondary Malignant Neoplasm Peritoneum (HCC) (Primary Dx); Malignant Neoplasm Of Cecum (HCC) 01/11/2025 11:00 AM CDT Lab Department of Oncology in [place], [place] [address] [place] [phone] Preet Segura M.D. Malignant Neoplasm Of Cecum (HCC) (Primary Dx); Secondary Malignant Neoplasm Peritoneum (HCC) 12/31/2024 1:15 PM CDT Infusion Department of Infusion Therapy in [address] [phone] Preet Segura M.D. Secondary Malignant Neoplasm Peritoneum (HCC) (Primary Dx); Malignant Neoplasm Of Cecum (HCC) 12/29/2024 11:30 AM CDT Infusion Department of Oncology in [address] [address] Preet Segura M.D. Secondary Malignant Neoplasm Peritoneum (HCC) (Primary Dx); Malignant Neoplasm Of Cecum (HCC) 12/29/2024 10:30 AM CDT Office Visit Department of Oncology in [place], [place] [address] [place] [phone] Ralph Corado M.B.B.S., M.D. Malignant Neoplasm Of Cecum (HCC) (Primary Dx); Secondary Malignant Neoplasm Peritoneum (HCC) 12/29/2024 7:30 AM CDT Lab Department of Laboratory Medicine and Pathology, [facility], in [place], [place] [address] [place] [phone] Preet Segura M.D. Malignant Neoplasm Of Cecum (HCC) (Primary Dx); Secondary Malignant Neoplasm Peritoneum (HCC) 12/17/2024 2:45 PM CDT Infusion Department of Infusion Therapy in [place], [place] [address] [place] [phone] Preet Segura M.D. Secondary Malignant Neoplasm Peritoneum (HCC) (Primary Dx); Malignant Neoplasm Of Cecum (HCC) 12/15/2024 2:30 PM CDT Infusion Department of Oncology in [place], [place] [address] [place] [phone] Kadeem Marshall P.A.-C., M.SAlpesh Secondary Malignant Neoplasm Peritoneum (HCC) (Primary Dx); Malignant Neoplasm Of Cecum (HCC) 12/15/2024 7:40 AM CDT Lab Department of Infusion Therapy in [place], [place] [address] [place] [phone] Preet Segura M.D. Malignant Neoplasm Of Cecum (HCC); Secondary Malignant Neoplasm Peritoneum (HCC) 12/15/2024 Orders Only Department of Oncology in [address] [phone] Chelly Starr, Pharm.D., R.Ph. from Last 3 Months Family History Medical History Relation Name Comments Prostate cancer Father Negrito Unger he beat it. Skin cancer Father Negrito Unger on face Hypertension Mother Anisa Unger Lymphadema Mother Anisa Unger Thyroid disease Mother Anisa Unger Hypothyroidi sm Psoriasis Son 1 Leo Meng Asthma Son 2 Lazaroalina Diazney Colon cancer Neg Hx Relation Name Status Comments Father Negrito Unger Mother Anisa Unger Son 1 Leo Meng Alive Son 2 Lazaro Duchrisney Alive Social History Tobacco Use Types Packs/Day [...] things needed for daily living? No 03/07/2025 [facility] Utilities Answer Date Recorded In the past 12 months has [facility] electric, gas, oil, or water company threatened to shut off services in your home? No 03/07/2025 Housing Stability Answer Date Recorded What is your living situation today? I have a [facility] place to live 03/07/2025 Education Answer Date [...] Comments Blood Pressure 141/85 03/07/2025 12:53 PM CURRICULUM COACH Pulse 134 03/07/2025 12:53 PM CURRICULUM COACH Temperature 36.7 C (98 F) 03/07/2025 12:53 PM CURRICULUM COACH Respiratory Rate 17 03/06/2025 11:23 AM CURRICULUM COACH Oxygen Saturation 100% 03/06/2025 1:45 PM CURRICULUM COACH Inhaled Oxygen Concentration - - Weight 65.6 kg (144 lb 10 oz) 03/07/2025 12:53 P M CURRICULUM COACH Height 157.5 cm (5' 2.01) 02/23/2025 9:00 AM CD T Body Mass Index 26.44 02/23/2025 9:00 AM CDT Plan of Treatment Upcoming Encounters Date Type Department Care Team (Latest Contact Info) Description 03/12/2025 11:30 AM CURRICULUM COACH Appointment Department of Gastroenterology in [address] [phone] Marquise Gill M.D. [address] [place] [phone] Kala Woo, DALIA, C.N.P., D.N.P., M.S.N. [address] [place] [phone] Discharge Disposition: Home or Self Care 03/12/2025 3:30 PM CURRICULUM COACH Appointment Department of Radiation Oncology in [address] [phone] Faith Ellis M.D. [address] [place] [address] 03/13/2025 3:45 PM CURRICULUM COACH Appointment Department of Radiation Oncology in [address] [phone] Faith Ellis M.D. [address] [place] [address] 03/14/2025 3:30 PM CURRICULUM COACH Appointment Department of Radiation Oncology in [place], [place] [address] [place] [phone] Faith Ellis M.D. [address] [place] [address] 03/14/2025 3:45 PM CURRICULUM COACH Appointment Department of Radiation Oncology in [place], [place] [address] [place] [phone] Sandro Guerrero M.D. [address] [place] [phone] 03/15/2025 8:30 AM CURRICULUM COACH Lab Department of Laboratory Medicine and Pathology, [facility] in [place], [place] [address] [place] [phone] Kadeem Marshall P.A.-C., M.S. [address] [place] [phone] 03/15/2025 9:40 AM CURRICULUM COACH Education Department of Oncology in [place], [place] [address] [place] [phone] Kadeem Marshall P.A.-C., M.S. [address] [place] [phone] 03/15/2025 10:30 AM CURRICULUM COACH Infusion Department of Oncology in [place], [place] [address] [place] [phone] Kadeem Marshall P.A.-C., M.S. [address] [place] [phone] 03/15/2025 2:25 PM CURRICULUM COACH Appointment Department of Cardiovascular Diseases in [place], [place] [address] [place] [phone] Kadeem Marshall P.A.-C., M.S. [address] [place] [phone] Discharge Disposition: Home or Self Care 03/15/2025 3:30 PM CURRICULUM COACH Appointment Department of Radiation Oncology in [place], [place] [address] [place] [phone] Faith Ellis M.D. [address] [place] [phone] 03/16/2025 3:30 PM CURRICULUM COACH Appointment Department of Radiation Oncology in [place] [address] [place] [phone] Faith Ellis M.D. [address] [place] [phone] 04/05/2025 8:30 AM CURRICULUM COACH Lab Department of Oncology in [place], [place] [address] [place] [phone] Kadeem Marshall P.A.-C., M.S. [address] [place] [phone] 04/05/2025 10:40 AM CURRICULUM COACH Office Visit Department of Oncology in [address] [phone] Kadeem Marshall P.A.-C., M.S. [address] [place] [phone] 04/05/2025 1:00 PM CURRICULUM COACH Infusion Department of Oncology in [address] [phone] Kadeem Marshall P.A.-C., M.S. [address] [place] [phone] 04/06/2025 10:00 AM CURRICULUM COACH Comprehensive Visit Department of Palliative Care in [place], [place] [address] [place] [phone] Ana Rosa Hurtado APRN, C.N.PAlpesh, FelipeN.P. [address] [place] [phone] 04/30/2025 7:15 AM CURRICULUM COACH Lab Department of Oncology in [place], [place] [address] [place] [phone] Kadeem Marshall P.A.-C., M.S. [address] [place] [phone] 04/30/2025 9:20 AM CURRICULUM COACH Office Visit Department of Oncology in [place], [place] [address] [place] [phone] Kadeem Marshall P.A.-C., M.S. [address] [place] [phone] 04/30/2025 2:30 PM CURRICULUM COACH Infusion Department of Oncology in [address] [phone] Kademe Marshall P.A.-C., M.S. [address] [place] [phone] 05/21/2025 11:00 AM CURRICULUM COACH Lab Department of Oncology in [address] [phone] Kadeem Marshall P.A.-C., M.S. [address] [place] [phone] 05/21/2025 1:20 PM CURRICULUM COACH Office Visit Department of Oncology in [address] [phone] Kadeem Marshall P.A.-C., M.S. [address] [place] [phone] 05/21/2025 2:00 PM CURRICULUM COACH Infusion Department of Oncology in [place], [place] [address] [place] [phone] Kadeem Marshall P.A.-C., M.S. [address] [place] [phone] Health Maintenance Due Date Last Done Comments [...] this topic Medical Devices Implanted Type Area Psychometrist Device Identifier Shelf Expiration Date Model / Serial / Lot Prt Cath Infus Mri Intrmd 8f - [id number] Implanted:Qt y: 1 on 11/06/2022 by Don Erickson M.D. at [facility] Implant[employer] [place] [employer] 11/24/2023 [id number] / / [id number] Gracia Adhn Seprafilm 3x5 - [id number] Implanted:Qt y: 1 on 05/27/2023 by Michele Baldwin M.D., M.S. at [facility] Mesh or Patch N/A: Abdomen [employer] 09/25/2025 [id number] / / [id number] Seprafilm Full Sheet, 10-Pk 5in X 6in, 1 - [id number] Implanted:Qt y: 1 on 05/27/2023 by Michele Baldwin M.D., M.S. at [facility] Mesh or Patch N/A: Abdomen O[place]endo 07/20/2025 [id number] / / [id number] Clip M/L Clp Vsl Endo Lgt Md/[place] 3-10mm Implanted:Qt y: 1 on 07/30/2022 by Marquise Meeks M.B., Ch.B., M.P.H. at [facility] [employer] 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) Ascites Chronic CYTOLOGY NON-DAY HABILITATION SPECIALIST Routine 03/06/2025 11:50 AM CURRICULUM COACH PROTEIN, TOTAL, BF Routine 03/06/2025 11:50 AM CURRICULUM COACH ALBUMIN, BODY FLUID Routine 03/06/2025 11:50 AM CURRICULUM COACH CELL COUNT AND DIFFERENTIAL, BF Routine 03/06/2025 11:[address] ABDOMEN PELVIS WITH IV CONTRAST RAD - Semiurgent (Fast; most ED patients; some inpatients) 03/05/2025 1:42 PM CURRICULUM COACH LIPASE, S/P STAT 03/05/2025 1:18 PM CURRICULUM COACH LACTATE, B/P STAT 03/05/2025 1:18 PM CURRICULUM COACH COMPREHENSIVE METABOLIC PANEL, S/P STAT 03/05/2025 1:18 PM CURRICULUM COACH CBC WITH DIFFERENTIAL, B STAT 03/05/2025 1:18 PM CURRICULUM COACH HC URINALYSIS AUTO W MICRO STAT 03/05/2025 12:47 PM CURRICULUM COACH URINALYSIS WITH MICROSCOPIC IF INDICATED, U STAT 03/05/2025 12:47 PM CURRICULUM COACH SEDIMENTATION RATE, B Routine 02/23/2025 6:58 AM [...] from Last 3 Months Results * CT ABDOMEN PELVIS W CON-Outside CT Body (03/09/2025 12:55 AM CURRICULUM COACH) Narrative [facility] - 03/09/2025 12:14 PM CURRICULUM COACH This order has been created and auto-finalized to support the import of outside images. If available, original interpretation can be found on the Media Tab in Chart Review, in Document Viewer, as an image in Think2ityView or as an Addendum. If a re-interpretation or overread is required please follow defined workflow. us Provider Not In System IMG CT PROCEDURES Final R esult IIMS NA * Initial Rad Onc Treatment Planning CT Simulation (03/07/2025 2:00 PM CURRICULUM COACH) Narrative [facility] - 03/07/2025 2:00 PM CURRICULUM COACH Faith Ellis M.D. 03/07/2025 3:41 PM Initial [...] imaging was appropriate and completed without incident. Medical Doctor Nuclear Medicine use:No Faith Ellis M.D. RADIATION ONCOLOGY ORDERA BLES Final Result KARL garza * GI Procedure Note (03/06/2025 12:14 PM CURRICULUM COACH) Anatomical Region Laterality Modality Endoscopy 03/06/2025 12:1 4 PM CURRICULUM COACH Impressions 03/06/2025 2:20 PM CURRICULUM COACH Post-op Diagnoses: - Paracentesis successfully performed. Narrative 03/06/2025 2:20 PM CURRICULUM COACH [facility] Patient Name: Hayley Unger Procedure Date: [...] nal Result * Paracentesis (03/06/2025 12:14 PM CURRICULUM COACH) Anatomical Region Laterality Modality Endoscopy 03/06/2025 12:1 4 PM CURRICULUM COACH Marquise Gill M.D. GI PROCEDURE ORDERABLES Fi nal Result * (ABNORMAL) Cytology Non-DAY HABILITATION SPECIALIST (03/06/2025 11:50 AM CURRICULUM COACH) (A) 03/07/2025 10:27 AM CURRICULUM COACH ECLR Report electronically signed by Rod Bailey M.D. I verify that I have examined all relevant slides/materi als for the specimen(s) and rendered or confirmed the diagnosis. (A) 03/07/2025 10:27 AM CURRICULUM COACH ECLR Gross Description Received 44 cc of blood tinged fluid without fixative.(A) 03/07/2025 10:27 AM CURRICULUM COACH ECLR Source A. Peritoneal, fluid(A) 03/07/2025 10:27 AM CURRICULUM COACH ECLR Interpretation A. Peritoneal, fluid (cytospin/manuel l block): Positive for malignancy. Metastatic adenocarcinom a. Digital imaging was used in the diagnostic assessment of this case, cell block A. (A) 03/07/2025 10:27 AM CURRICULUM COACH ECLR Fluid 03/06/2025 11:5 0 AM CURRICULUM COACH 03/06/2025 3:10 PM CURRICULUM COACH us Marquise Glil M.D. LAB SURG PATH ORDERABLES F inal Result Performing Organization Address [facility] Co de Phone Number [facility] [address] [place] [address], [facility] ECLR [address] [place] [phone] * Protein, Total, Body Fluid (03/06/2025 11:50 AM CURRICULUM COACH) Protein, Total, BF 4.1 See Comment g/dL 03/06/2025 4:08 PM CURRICULUM COACH ECLR Comment: ----ADDITIONAL INFORMATION---- A pleural fluid [...] clinical findings. All other fluids refer to [email or web address].coms.com for further interpretive information. This test has been modified from the rail bonder's instructions. Its performance characteristics were determined by [facility] in a manner consistent with CLIA requirements. This test has not been cleared or approved by the U.S. Food and Drug Administration. Fluid Type, Protein, Total PERITONEAL 03/06/2025 4:07 PM CURRICULUM COACH ECLR Fluid (Peritoneal Fluid) 03/06/2025 11:50 AM CURRICULUM COACH 03/06/2025 3:11 PM CURRICULUM COACH us Marquise Gill M.D. LAB BODY FLUIDS AND STOOLS ORDERABLES Final Result Performing Organization Address City/[facility]/ZIP Co de Phone Number [facility] [address] [place] [address], [place] ECLR [facility] [place] [address] [place] [address] * Cell Count and Differential, Body Fluid (03/06/2025 11:50 AM CURRICULUM COACH) Fluid Type Peritoneal /Paracente sis 03/06/2025 12:32 PM CURRICULUM COACH RDWG Gross Appearance Bloody 03/06/20 12:32 PM CURRICULUM COACH RDWG Total Nucleated Cells 945 /mcL 03/06/2025 12:32 PM CURRICULUM COACH RDWG Comment: ----REFERENCE VALUE---- Synovial: <150 Peritoneal: <500 Pleural: <500 Pericardial: <500 Neutrophils 41 % 03/06/2025 1:13 PM CURRICULUM COACH RDWG Comment: ----REFERENCE VALUE---- Synovial: <25% Peritoneal: <25% Pleural: <25% Pericardial: <25% Lymphocytes 17 Synovial: <75% % 03/06/2025 1:13 PM CURRICULUM COACH RDWG Monocytes/Macrop hages 42 Synovial: <70% % 03/06/2025 1:13 PM CURRICULUM COACH RDWG Reviewed by [email or web address] 03/06/2025 1:13 PM CURRICULUM COACH RDWG Fluid (Peritoneal Fluid) 03/06/2025 11:50 AM CURRICULUM COACH 03/06/2025 12:13 PM CURRICULUM COACH us Marquise Gill M.D. LAB BODY FLUIDS AND STOOLS ORDERABLES Final Result Performing Organization Address City/[facility]/ZIP Co de Phone Number [facility] [address] [address], [facility] RDWG [facility] [place] [address] [place] [phone] * Albumin, Body Fluid (03/06/2025 11:50 AM CURRICULUM COACH) Albumin BF 2.9 See Comment g/dL 03/06/2025 4:09 PM CURRICULUM COACH ECLR Comment: ----ADDITIONAL INFORMATION---- Peritoneal fluid albumin is used to calculate the serum-ascites albumin gradient (SAAG). Values greater than or equal to 1.1 g/dL suggest portal hypertension. Pleural fluid albumin may be used to calculate a serum-effusion albumin gradient. Values greater than 1.2 g/dL are most consistent with a transudative process. All other fluids refer to www.Shsunedu.coms.Telisma for further interpretive information. This test has been modified from the rail bonder's instructions. Its performance characteristics were determined by [facility] in a manner consistent with CLIA requirements. This test has not been cleared or approved by the U.S. Food and Drug Administration. Fluid Type, Albumin PERITONEAL 03/06/2025 4:07 PM CURRICULUM COACH ECLR Fluid (Peritoneal Fluid) 03/06/2025 11:50 AM CURRICULUM COACH 03/06/2025 3:11 PM CURRICULUM COACH us Marquise Gill M.D. LAB BODY FLUIDS AND STOOLS ORDERABLES Final Result [facility] [address] [place] [address], [facility] ECLR [place] [address] * CT Abdomen Pelvis with IV Contrast (03/05/2025 1:42 PM CURRICULUM COACH) Only the most recent of2 resultswithin the time period is included. Anatomical Region Laterality Modality Abdomen, Pelvis, Abdominal R ST LOS, Abdominal ARZ LOS, Abdominal FLA LOS N/A Computed Tomography 03/05/2025 1:35 PM CURRICULUM COACH Impressions 03/05/2025 1:56 PM CURRICULUM COACH Since 02/22/2025, mild interval progression of the metastatic disease in the abdomen and pelvis with increased size of multiple hepatic and serosal metastases. The scattered peritoneal and abdominal wall metastatic implants are grossly unchanged. Increased now moderate volume abdominopelvic ascites. Narrative 03/05/2025 1:56 PM CURRICULUM COACH EXAM: CT ABDOMEN PELVIS WITH IV CONTRAST [...] grossly unchanged. Increased now moderate volumeabdominopelvic ascites. Tyesha Rose APRN, C.N.P. IMG CT PROCEDURE S Final Result * (ABNORMAL) CBC with Differential, Blood (03/05/2025 1:18 PM CURRICULUM COACH) Only the most recent of7 resultswithin the time period is included. Hemoglobin 12.9 11.6 - 15.0 g/dL 03/05/2025 1:25 PM CURRICULUM COACH CNFL Hematocrit 38.2 35.5 - 44.9 % 03/05/2025 1:25 PM CURRICULUM COACH CNFL Erythrocytes 4.09 3.92 - 5.13 x10(12)/L 03/05/2025 1:25 PM CURRICULUM COACH CNFL MCV 93.4 78.2 - 97.9 fL 03/05/2025 1:25 PM CURRICULUM COACH CNFL RBC Distrib Width 13.6 12.2 - 16.1 % 03/05/2025 1:25 PM CURRICULUM COACH CNFL Platelet Count 193 157 - 371 x10(9)/L 03/05/2025 1:25 PM CURRICULUM COACH CNFL Leukocytes 7.2 3.4 - 9.6 x10(9)/L 03/05/2025 1:25 PM CURRICULUM COACH CNFL Neutrophils 5.70 1.56 - 6.45 x10(9)/L 03/05/2025 1:25 PM CURRICULUM COACH CNFL Lymphocytes 0.90(L) 0.95 - 3.07 x10(9)/L 03/05/2025 1:25 PM CURRICULUM COACH CNFL Monocytes 0.52 0.26 - 0.81 x10(9)/L 03/05/2025 1:25 PM CURRICULUM COACH CNFL Eosinophils 0.04 0.03 - 0.48 x10(9)/L 03/05/2025 1:25 PM CURRICULUM COACH CNFL Basophils <0.04 0.01 - 0.08 x10(9)/L 03/05/2025 1:25 PM CURRICULUM COACH CNFL Blood (Blood, Venous) 03/05/2025 1:18 PM CURRICULUM COACH 03/05/2025 1:20 PM CURRICULUM COACH Tyesha Rose APRN, C.N.P. LAB BLOOD ADD-ON Final Result [address] [address], [address] [address] * Lipase (03/05/2025 1:18 PM CURRICULUM COACH) Lipase, P 16 13 - 60 U/L 03/05/2025 2: 01 PM CURRICULUM COACH [facility] Blood (Blood, Venous) 03/05/2025 1:18 PM CURRICULUM COACH 03/05/2025 1:20 PM CURRICULUM COACH Tyesha Rose APRN, C.N.P. LAB BLOOD ADD-ON Final Result [facility] [address] [place] [address], [address] [address] * Lactate (03/05/2025 1:18 PM CURRICULUM COACH) Lactate, P 1.1 0.5 - 2.2 mmol/L 03/05/2025 1:39 PM CURRICULUM COACH [facility] Blood (Blood, Venous) 03/05/2025 1:18 PM CURRICULUM COACH 03/05/2025 1:20 PM CURRICULUM COACH Tyesha Rose APRN, C.N.P. LAB BLOOD NON [place] [address], [place] [address] * (ABNORMAL) Comprehensive Metabolic Panel (03/05/2025 1:18 PM CURRICULUM COACH) Only the most recent of6 resultswithin the time period is included. Pathologist [facility] Potassium, P 4.4 3.6 - 5.2 mmol/L 03/05/2025 2:01 PM CURRICULUM COACH CNFL Sodium, P 131(L) 135 - 145 mmol/L 03/05/2025 2:01 PM CURRICULUM COACH CNFL Chloride, P 91(L) 98 - 107 mmol/L 03/05/2025 2:01 PM CURRICULUM COACH CNFL Bicarbonate, P 24 22 - 29 mmol/L 03/05/2025 2:01 PM CURRICULUM COACH CNFL Anion Gap, P 16(H) 7 - 15 03/05/2025 2:01 PM CURRICULUM COACH CNFL BUN (Blood Urea Nitrogen), P 8 6 - 21 mg/dL 03/05/2025 2:01 PM CURRICULUM COACH CNFL Creatinine 0.56(L) 0.59 - 1.04 mg/dL 03/05/2025 2:01 PM CURRICULUM COACH CNFL Estimated GFR (eGFR) >90 >=60 mL/min/BS A 03/05/2025 2:01 PM CURRICULUM COACH CNFL Comment: Estimated GFR calculated using the 2020 CKD_EPI creatinine equation. Calcium, Total, P 9.3 8.8 - 10.2 mg/dL 03/05/2025 2:01 PM CURRICULUM COACH CNFL Glucose, P 89 70 - 140 mg/dL 03/05/2025 2:01 PM CURRICULUM COACH CNFL Protein, Total, P 6.1(L) 6.3 - 7.9 g/dL 03/05/2025 2:01 PM CURRICULUM COACH CNFL Albumin, P 3.6 3.5 - 5.0 g/dL 03/05/2025 2:01 PM CURRICULUM COACH CNFL Aspartate Aminotransferase (AST), P 27 8 - 43 U/L 03/05/2025 2:01 PM CURRICULUM COACH CNFL Alkaline Phosphatase, P 79 35 - 104 U/L 03/05/2025 2:01 PM CURRICULUM COACH CNFL Alanine Aminotransferase (ALT), P 15 7 - 45 U/L 03/05/2025 2:01 PM CURRICULUM COACH CNFL Bilirubin, Total, P 0.3 0.0 - 1.2 mg/dL 03/05/2025 2:01 PM CURRICULUM COACH CNFL Blood (Blood, Venous) 03/05/2025 1:18 PM CURRICULUM COACH 03/05/2025 1:20 PM CURRICULUM COACH us Tyesha Rose APRN, C.N.P. LAB BLOOD ADD-ON Final Result [facility] [address] [place] [address], [facility] CNFL [facility] [address] [address] * (ABNORMAL) Urinalysis with Microscopic if Indicated: Urine, Midstream (03/05/2025 12:47 PM CURRICULUM COACH) Source Urine, Urine, Midstream 03/05/2025 12:47 PM CURRICULUM COACH CNFL Clarity Clear Clear 03/05/2025 12:50 PM CURRICULUM COACH CNFL Color Yellow 03/05/2025 12:50 PM CURRICULUM COACH CNFL Comment: ----REFERENCE VALUE---- Colorless Yellow Harriett Blood Negative Negative 03/05/2025 12:50 PM CURRICULUM COACH CNFL Nitrite Negative Negative 03/05/2025 12:50 PM CURRICULUM COACH CNFL Leukocyte Esterase Negative Negative 03/05/2025 12:50 PM CURRICULUM COACH CNFL Protein 30(A) mg/dL 03/05/2025 12:50 PM CURRICULUM COACH CNFL Comment: ----REFERENCE VALUE---- Negative Trace Glucose Negative Negative mg/dL 03/05/2025 12:50 PM CURRICULUM COACH CNFL Ketones, QI(U) >=80(A) Negative mg/dL 03/05/2025 12:50 PM CURRICULUM COACH CNFL Bilirubin Large(A) Negative 03/05/2025 12:50 PM CURRICULUM COACH CNFL pH 5.5 5.0 - 8.0 03/05/2025 12:50 PM CURRICULUM COACH CNFL Specific [place] >=1.030 1.001 - 1.035 03/05/2025 12:50 PM CURRICULUM COACH CNFL Urobilinogen 0.2 0.2 - 1.0 mg/dL 03/05/2025 12:50 PM CURRICULUM COACH CNFL Urine (Urine, Midstream) 03/05/2025 12:47 PM CURRICULUM COACH 03/05/2025 12:47 PM CURRICULUM COACH us Tyesha Rose APRN, C.N.P. LAB URINE ORDERA BLES Final Result Performing Organization Address [facility] Co de Phone Number [facility] [address] [place] [address], [facility] [place] [address] * Microscopic Manual (03/05/2025 12:47 PM CURRICULUM COACH) White Blood Cells 4-10 /hpf 03/05/2025 1:11 PM CURRICULUM COACH CNFL Comment: ----REFERENCE VALUE---- Males: 0-3 Females: 0-10 Unknown: 0-10 Red Blood Cells Occ-2 0 - 2 /hpf 1:11 PM CURRICULUM COACH CNFL Dysmorphic Red Blood Cells <=25 <=25 % 03/05/2025 1:11 PM CURRICULUM COACH CNFL Hyaline Casts 21-30 /lpf 03/05/2025 1:11 PM CURRICULUM COACH CNFL Squamous Cells Occ-3 /hpf 03/05/2025 1:11 PM CURRICULUM COACH CNFL Bacteria None Seen None Seen 03/05/2025 1:11 PM CURRICULUM COACH CNFL Urine 03/05/2025 12:4 7 PM CURRICULUM COACH 03/05/2025 12:47 PM CURRICULUM COACH us Minnie Cannon APRNN.P. LAB URINE ORDERA BLES Final Result Performing Organization Address [facility]/ZIP Co de Phone Number [facility] [address] [place] [address], [facility] [place] [phone] * (ABNORMAL) Sedimentation Rate (02/23/2025 6:58 AM CDT) Sedimentation Rate, B 25(H) 2 - 22 mm/h 02/23/2025 8:02 AM CDT DTL Blood (Blood, Venous) 02/23/2025 6:58 AM CDT 02/23/2025 7:11 AM CDT us Kadeem Marshall P.A.-C. M.S. LAB BLOOD ADD-ON Fi nal Result [facility] [address] [place] [address], [facility] [address] [place] [address] * (ABNORMAL) CRP (C-Reactive Protein) (02/23/2025 6:58 AM CDT) Only the most recent of2 resultswithin the time period is included. C-Reactive Protein (CRP), S 13.3(H) <5.0 mg/L 02/23/2025 7:51 AM CDT DTL Blood (Blood, Venous) 02/23/2025 6:58 AM CDT 02/23/2025 7:11 AM CDT us Kadeem Marshall P.A.-C., M.S. LAB BLOOD ADD-ON Fi nal Result Performing Organization Address [facility] Co de Phone Number [facility] [address] [place] [address], [facility] [address] [place] [address] * Magnesium (02/23/2025 6:58 AM CDT) Only the most recent of5 resultswithin the time period is included. Magnesium, S 1.8 1.7 - 2.3 mg/dL 02/23/2025 7:51 AM CDT DTL Blood (Blood, Venous) 02/23/2025 6:58 AM CDT 02/23/2025 7:11 AM CDT us Kadeem Marshall P.A.-C. M.S. LAB BLOOD ADD-ON Fi nal Result Performing Organization Address City/[facility]/ZIP Co de Phone Number [facility] [address] [place] [address], [facility] [address] [place] [address] * (ABNORMAL) CEA (Carcinoembryonic Antigen) (02/23/2025 6:58 AM CDT) Carcinoembryonic Ag (CEA), S 11.1(H) ng/mL 02/23/2025 11:11 AM CDT [facility] Comment: ----REFERENCE VALUE---- <=3.0 (Non-smokers) Some smokers may have elevated CEA, usually <5.0. ----ADDITIONAL INFORMATION---- The testing method is an immunoenzymatic assay manufactured by [employer]. and performed on the [employer] DxI 800. Values obtained with different assay methods or kits may be different and cannot be used interchangeably. Test results cannot be interpreted as absolute evidence for the presence or absence of malignant disease. Blood (Blood, Venous) 02/23/2025 6:58 AM CDT 02/23/2025 10:07 AM CDT us Kadeem Marshall P.A.-C., M.S. LAB BLOOD ADD-ON Fi nal Result [facility] [address] [place] [address] [facility] [address] [place] [address] * Bilirubin, Direct (02/23/2025 6:58 AM CDT) Only the most recent of5 resultswithin the time period is included. Pathologist [facility] Bilirubin, Direct, S 0.1 0.0 - 0.3 mg/dL 02/23/2025 7:51 AM CDT DTL Blood (Blood, Venous) 02/23/2025 6:58 AM CDT 02/23/2025 7:11 AM CDT us Kadeem Marshall P.A.-C., M.S. LAB BLOOD ADD-ON Fi nal Result Performing Organization Address City/[facility]/ZIP Co de Phone Number [facility] [address] [place], [place] [address] DTL [facility] [address] [place] [address] * CT Chest with IV Contrast (02/22/2025 [...] Mediastinum: Unremarkable visualized thyroid gland. Right chest evmxOxbw-[id number] terminates in the high right atrium. Normal [...] Arteaga APRN, C.N.P., D.N.P. IMG CT PROCE DURES Final Result [...] PM CDT us Christopher Arteaga APRN, C.N.P., FelipeNMoris. LAB BLOOD AD D-ON Final Result Performing Organization Address City/[facility]/ZIP Co de Phone Number [facility] [address] [place] [address], [facility] CNFL [facility] [address] [place] [address] * Zinc (01/25/2025 8:38 AM CDT) Only the most recent of4 resultswithin the time period is included. Zinc, S 63 60 - 106 mcg/dL 01/26/2025 10:01 AM CDT [facility] Comment: ----ADDITIONAL INFORMATION---- This test was developed and its performance characteristics determined by [facility] in a manner consistent with CLIA requirements. This test has not been cleared or approved by the U.S. Food and Drug Administration. Blood (Blood, Venous) 01/25/2025 8:38 AM CDT 01/25/2025 11:10 AM CDT us Kadeem Marshall P.A.-C. M.S. LAB BLOOD NON ADD-O N Final Result Performing Organization Address City/[facility] Co de Phone Number [facility] [address] [place] [address] [facility] [address] [place] [address] [place] [address] * S-TSH (Thyroid-Stimulating Hormone - Sensitive) (01/25/2025 8:38 AM CDT) Only the most recent of4 resultswithin the time period is included. TSH, Sensitive 2.6 0.3 - 4.2 mIU/L 01/25/2025 9:40 AM CDT DTL Blood (Blood, Venous) 01/25/2025 8:38 AM CDT 01/25/2025 8:44 AM CDT us Kadeem Marshall P.A.-C., M.S. LAB BLOOD ADD-ON Fi nal Result [facility] [address] [place] [address], [place] DTL [facility] [address] [place] [address] * EXT Tempus xT DNA And RNA [...] CDT [facility] EXT Tempus Portal [email or web address] [id number] 12/15/2024 12:56 PM CDT [facility] Comment:Tempus [...] Status: Consensus Evidence ID: [id number] Variant: [id number] Label: FDA Off Label FDA Approved?: Yes On label?: No 12/15/2024 12:56 PM CDT [facility] EXT Tempus: Potential Therapy 4 Gene: 3430^ERBB2^HGNC Variant: p.V777L Match Type: snvIndel Match Type Description: ERBB2 p.V777L Agent: Ado-Trastuzumab Emtansine Drug Class: Anti-HER2 MAb Tissue: Non-Small Cell Lung Cancer Association: Response Evidence Status: Consensus Evidence ID: NCCN [id number] Variant: [id number] Label: FDA Off Label FDA Approved?: Yes [...] Status: Consensus Evidence ID: MOSES KDB Variant: [id number] Label: FDA Off Label FDA Approved?: Yes On label?: No 12/15/2024 12:56 PM CDT [facility] EXT Tempus: Potential Therapy 9 Gene: 3430^ERBB2^HGNC Variant: p.V777L Match Type: snvIndel Match Type Description: ERBB2 p.V777L Agent: Neratinib Drug Class: Gonzales-HER TKI Tissue: Breast Cancer Association: Response Evidence Status: Consensus Evidence ID: NCCN KDB Variant: [id number] Label: FDA Off Label FDA Approved?: Yes [...] Response Evidence Status: Clinical research Evidence ID: [id number] Evidence URL: http://www.ncbi.nlm .nih.gov/pubmed/248 22823 Evidence Title: Lapatinib plus paclitaxel versus paclitaxel [...] Status: Consensus Evidence ID: NCCN KDB Variant: [id number] Label: FDA Off Label FDA Approved?: Yes On label?: No 12/15/2024 12:56 PM CDT [facility] EXT Tempus: Potential Therapy 13 Gene: 3430^ERBB2^HGNC Variant: p.V777L Match Type: snvIndel Match Type Description: ERBB2 p.V777L Agent: Trastuzumab + Neratinib Drug Class: Combination (Anti-HER2 MAb + Gonzales-HER TKI) Tissue: Breast Cancer Association: Response Evidence Status: Consensus Evidence ID: NCCN KDB Variant: [id number]-[id number] Label: FDA Off Label FDA Approved?: Yes [...] Status: Consensus Evidence ID: MOSES KDB Variant: [id number]-mw-kjbzkmhj Label: FDA Off Label FDA Approved?: Yes On label?: No 12/15/2024 12:56 PM CDT [facility] EXT Tempus: Potential Therapy 16 Gene: 3430^ERBB2^HGNC Variant: p.V777L Match Type: snvIndel Match Type Description: ERBB2 p.V777L Agent: Trastuzumab Deruxtecan Drug Class: MAb-Drug Conjugate Tissue: Non-Small Cell Lung Cancer Association: Response Evidence Status: Consensus Evidence ID: MOSES KDB Variant: Cqbd-pi-lyevogir Label: FDA Off Label FDA Approved?: Yes [...] Combination (Anti-HER2 MAb + Anti-Tubulin Agent + [place] Agent) Tissue: Uterine Serous Carcinoma Association: Response [...] 1: Matched criteria Clinical Trial NCT ID: [id number] Clinical Trial Title: Testing the Safety and Tolerability of the Anti-cancer Drugs Trastuzumab Deruxtecan and Neratinib for Cancers With Changes in the HER2 Gene Clinical Trial URL: https://clinicaltri als.gov/ct2/show/[place] G08247608 Clinical Phase: Phase 1 Clinical Trial Matches: ERBB2 (HER2) p.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, ERBB2 (HER2) p.V777L mutation, ERBB2 (HER2) amplification Clinical Trial Distance and Location: [address] [place] [address] 12/15/2024 12:56 PM CDT [facility] EXT Trial 2: Matched criteria Clinical Trial NCT ID: [id number] Clinical Trial Title: A Study to Learn More About How Well Treatment With Sevabertinib ([id number]) Tablets Works and How Safe it is in Participants Who Have a Solid Tumor With Mutations of the Human Epidermal Growth Factor Receptor 2 (HER2) Clinical Trial URL: https://clinicaltri als.gov/ct2/show/NC T78491177 Clinical Phase: Phase 2 Clinical Trial Matches: ERBB2 (HER2) p.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, ERBB2 (HER2) p.V777L mutation Clinical Trial Distance and Location: [address] [place], [place] 12/15/2024 12:56 PM CDT [facility] EXT Trial 3: Matched criteria Clinical Trial NCT ID: [id number] Clinical Trial Title: Trifluridine/Tipira cil and Talazoparib for the Treatment of Patients With Locally Advanced or Metastatic Colorectal or Gastroesophageal Cancer Clinical Trial URL: https://clinicaltri als.gov/ct2/show/NC K39071405 Clinical Phase: Phase 1 Clinical Trial Matches: TP53 p.R282W mutation Clinical Trial Distance and Location: [address] [place], [place] 12/15/2024 12:56 PM CDT [facility] [...] included in this document. us Kadeem Marshall P.A.-C. MAlpeshSAlpesh LAB GENETIC TESTING Final Result [facility] [address] [place] [address], [facility] [phone] [facility] [address] [place] [address] from Last 3 Months Additional Health Concerns Infection Onset Date Last Indicated Protective Environment 06/02/[address] [place] [address] [facility] Advance Directives For more information, please contact: [phone] Documents on File Type Date Recorded Patient Manager Application Expl anation Advance Directives 10/22/2023 9:35 AM [...] Name Relationship Healthcare Agent Relationshi p Communication Lazaro Kwon [facility] Health Care Agent Leo Fan [facility] Health Care Agent Care Teams Radio Control 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
--- OUTSIDE RECORDS SUMMARY | 2025-03-09 16:25 | XMS_ITS | Encounter Summary ---
Author Organization [facility] Address [address] [place] [address] Care Team Providers Care Site Foreman Name Role Phone Elsewhere, Pcp Primary Care Provider Unavailabl e Encounter Details Date Type Department Care Team (Late st Contact Info) Description 01/27/2025 Clinical Communication Department of Infusion Therapy in [place], [place] [address] [place] [address] Kevin Tuttle, [place]-, R.N. Social History Tobacco Use Types Packs/Day Years Used Date Smoking Tobacco: Never Passive Smoke Exposure: Never Smokeless Tobacco: Never Alcohol Use Standard Drinks/Week Comments Not Currently 0 (1 standard drink = 0.6 oz pur e alcohol) [facility] Utilities Answer Date Recorded In the past 12 months has [employer], gas, oil, or water [employer] threatened to shut off services in your [...] your living situation today? I have a [facility] place to live 2024 Education Answer [...] (Latest Contact Info) Description 03/12/2025 11:30 AM SHIFT SUPERVISOR FILM PROCESSING Appointment Department of Gastroenterology in [place], [place] [address] [place] [phone] Marquise Gill M.D. [address] [place] [phone] Kala Woo APRN, C.N.P., D.N.P., M.S.N. [address] [place] [address] Discharge Disposition: Home or Self Care 03/12/2025 3:30 PM SHIFT SUPERVISOR FILM PROCESSING Appointment Department of Radiation Oncology in [address] [address] aFith Ellis M.D. [address] [place] [phone] 03/13/2025 3:45 PM SHIFT SUPERVISOR FILM PROCESSING Appointment Department of Radiation Oncology in [address] [address] Faith Ellis M.D. [address] [place] [phone] 03/14/2025 3:30 PM SHIFT SUPERVISOR FILM PROCESSING Appointment Department of Radiation Oncology in [address] [address] Faith Ellis M.D. [address] [place] [phone] 03/14/2025 3:45 PM SHIFT SUPERVISOR FILM PROCESSING Appointment Department of Radiation Oncology in [address] [address] Sandro Guerrero M.D. [address] [place] [phone] 03/15/2025 8:30 AM SHIFT SUPERVISOR FILM PROCESSING Lab Department of Laboratory Medicine and Pathology, [facility], in [place], [place] [address] [place] [phone] Kadeem Marshall P.A.-C., M.S. [address] [place] [phone] 03/15/2025 9:40 AM SHIFT SUPERVISOR FILM PROCESSING Education Department of Oncology in [place], [place] [address] [place] [phone] Kadeem Marshall P.A.-C., M.S. [address] [place] [phone] 03/15/2025 10:30 AM SHIFT SUPERVISOR FILM PROCESSING Infusion Department of Oncology in [place], [place] [address] [place] [phone] Kadeem Marshall P.A.-C., M.S. [address] [place] [phone] 03/15/2025 2:25 PM SHIFT SUPERVISOR FILM PROCESSING Appointment Department of Cardiovascular Diseases in [place], [place] [address] [place] [phone] Kadeem Marshall P.A.-C., M.S. [address] [place] [phone] Discharge Disposition: Home or Self Care 03/15/2025 3:30 PM SHIFT SUPERVISOR FILM PROCESSING Appointment Department of Radiation Oncology in [address] [phone] Faith Ellis M.D. [address] [place] [phone] 03/16/2025 3:30 PM SHIFT SUPERVISOR FILM PROCESSING Appointment Department of Radiation Oncology in [place] [address] [place] [phone] Faith Ellis M.D. [address] [place] [phone] 04/05/2025 8:30 AM SHIFT SUPERVISOR FILM PROCESSING Lab Department of Oncology in [place], [place] [address] [place] [phone] Kadeem Marshall P.A.-C., M.S. [address] [place] [phone] 04/05/2025 10:40 AM SHIFT SUPERVISOR FILM PROCESSING Office Visit Department of Oncology in [place], [place] [address] [place] [phone] Kadeem Marshall P.A.-C., M.S. [address] [place] [phone] 04/05/2025 1:00 PM SHIFT SUPERVISOR FILM PROCESSING Infusion Department of Oncology in [place], [place] [address] [place] [phone] Kadeem Marshall P.A.-C., M.S. [address] [place] [phone] 04/06/2025 10:00 AM SHIFT SUPERVISOR FILM PROCESSING Comprehensive Visit Department of Palliative Care in [place], [place] [address] [place] [phone] Ana Rosa Hurtado APRN, C.N.P., D.N.P. [address] [place] [phone] 04/30/2025 7:15 AM SHIFT SUPERVISOR FILM PROCESSING Lab Department of Oncology in [address] [address] Kadeem Marshall P.A.-C., M.S. [address] [place] [phone] 04/30/2025 9:20 AM SHIFT SUPERVISOR FILM PROCESSING Office Visit Department of Oncology in [address] [phone] Kadeem Marshall P.A.-C., M.S. [address] [place] [phone] 04/30/2025 2:30 PM SHIFT SUPERVISOR FILM PROCESSING Infusion Department of Oncology in [place], [place] [address] [place] [phone] Kadeem Marshall P.A.-C., M.S. [address] [place] [phone] 05/21/2025 11:00 AM SHIFT SUPERVISOR FILM PROCESSING Lab Department of Oncology in [place], [place] [address] [place] [phone] Kadeem Marshall P.A.-C., M.S. [address] [place] [phone] 05/21/2025 1:20 PM SHIFT SUPERVISOR FILM PROCESSING Office Visit Department of Oncology in [place], [place] [address] [place] [phone] Kadeem Marshall P.A.-C., M.S. [address] [place] [phone] 05/21/2025 2:00 PM SHIFT SUPERVISOR FILM PROCESSING Infusion Department of Oncology in [place], [place] [address] [place] [phone] Kadeem Marshall P.A.-C., M.S. [address] [place] [phone] documented as of this encounter Visit Diagnoses Not on filedocumented in this encounter Additional Health Concerns Infection Onset Date Last Indicated Resolved Time Protective Environment 06/02/2024 06/02/2024 documented as of this encounter Care Teams Site Foreman Relationship Specialty Start Date End Date Elsewhere, Pcp PCP - General Internal Medicine 03/08/24 documented as of this encounter
--- OUTSIDE RECORDS SUMMARY | 2025-03-09 16:27 | XMS_ITS | Encounter Summary ---
Author Organization [facility] Address [address] [place] [phone] Care Team Providers Care Bed Manager Name Role Phone Elsewhere, Pcp Primary Care Provider Unavailabl e Encounter Details Date Type Department Care Team (Late st Contact Info) Description 02/01/2025 Orders Only Department of Oncology in [place], [place] [address] [place] [address] Kadeem Marshall, P.Jessica.-C., M.S. [address] [place] [address] Social History Tobacco Use Types Packs/Day Years Used Date Smoking Tobacco: Never Passive Smoke Exposure: Never Smokeless Tobacco: Never Alcohol Use Standard Drinks/Week Comments Not Currently 0 (1 standard drink = 0.6 oz pur e alcohol) [facility] Utilities Answer Date [...] your living situation today? [facility] 2024 Education Answer [...] (Latest Contact Info) Description 03/12/2025 11:30 AM DECAY CONTROL OPERATOR Appointment Department of Gastroenterology in [place], [place] [address] [place] [phone] Marquise Gill M.D. [address] [place] [phone] Kala Woo APRN, C.N.P., D.N.P., M.S.N. [address] [place] [address] Discharge Disposition: Home or Self Care 03/12/2025 3:30 PM DECAY CONTROL OPERATOR Appointment Department of Radiation Oncology in [address] [phone] Faith Ellis M.D. [address] [place] [phone] 03/13/2025 3:45 PM DECAY CONTROL OPERATOR Appointment Department of Radiation Oncology in [address] [phone] Faith Ellis M.D. [address] [place] [phone] 03/14/2025 3:30 PM DECAY CONTROL OPERATOR Appointment Department of Radiation Oncology in [address] [phone] Faith Ellis M.D. [address] [place] [phone] 03/14/2025 3:45 PM DECAY CONTROL OPERATOR Appointment Department of Radiation Oncology in [address] [phone] Sandro Guerrero M.D. [address] [place] [phone] 03/15/2025 8:30 AM DECAY CONTROL OPERATOR Lab Department of Laboratory Medicine and Pathology, [facility], in [place], [place] [address] [place] [phone] Kadeem Marshall P.A.-C., M.S. [address] [place] [phone] 03/15/2025 9:40 AM DECAY CONTROL OPERATOR Education Department of Oncology in [place], [place] [address] [place] [phone] Kadeem Marshall P.A.-C., M.S. [address] [place] [phone] 03/15/2025 10:30 AM DECAY CONTROL OPERATOR Infusion Department of Oncology in [place], [place] [address] [place] [phone] Kadeem Marshall P.A.-C., M.S. [address] [place] [phone] 03/15/2025 2:25 PM DECAY CONTROL OPERATOR Appointment Department of Cardiovascular Diseases in [place], [place] [address] [place] [phone] Kadeem Marshall P.A.-C., M.S. [address] [place] [phone] Discharge Disposition: Home or Self Care 03/15/2025 3:30 PM DECAY CONTROL OPERATOR Appointment Department of Radiation Oncology in [address] [phone] Faith Ellis M.D. [address] [place] [phone] 03/16/2025 3:30 PM DECAY CONTROL OPERATOR Appointment Department of Radiation Oncology in [place] [address] [place] [phone] Faith Ellis M.D. [address] [place] [phone] 04/05/2025 8:30 AM DECAY CONTROL OPERATOR Lab Department of Oncology in [place], [place] [address] [place] [phone] Kadeem Marshall P.A.-C., M.S. [address] [place] [phone] 04/05/2025 10:40 AM DECAY CONTROL OPERATOR Office Visit Department of Oncology in [place], [place] [address] [place] [phone] Kadeem Marshall P.A.-C., M.S. [address] [place] [phone] 04/05/2025 1:00 PM DECAY CONTROL OPERATOR Infusion Department of Oncology in [place], [place] [address] [place] [phone] Kadeem Marshall P.A.-C., M.S. [address] [place] [phone] 04/06/2025 10:00 AM DECAY CONTROL OPERATOR Comprehensive Visit Department of Palliative Care in [place], [place] [address] [place] [phone] Ana Rosa Hurtado APRN, C.N.P., D.N.P. [address] [place] [phone] 04/30/2025 7:15 AM DECAY CONTROL OPERATOR Lab Department of Oncology in [place], [place] [address] [place] [phone] Kadeem Marshall P.A.-C., M.S. [address] [place] [phone] 04/30/2025 9:20 AM DECAY CONTROL OPERATOR Office Visit Department of Oncology in [place], [place] [address] [place] [phone] Kadeem Marshall P.A.-C., M.S. [address] [place] [phone] 04/30/2025 2:30 PM DECAY CONTROL OPERATOR Infusion Department of Oncology in [place], [place] [address] [place] [phone] Kadeem Marshall P.A.-C., M.S. [address] [place] [phone] 05/21/2025 11:00 AM DECAY CONTROL OPERATOR Lab Department of Oncology in [address] [phone] Kadeem Marshall P.A.-C., M.S. [address] [place] [phone] 05/21/2025 1:20 PM DECAY CONTROL OPERATOR Office Visit Department of Oncology in [address] [address] Kadeem Marshall P.A.-C., M.S. [address] [place] [phone] 05/21/2025 2:00 PM DECAY CONTROL OPERATOR Infusion Department of Oncology in [address] [phone] Kadeem Marshall P.A.-C., M.S. [address] [place] [phone] documented as of this encounter Visit Diagnoses Not on filedocumented in this encounter Additional Health Concerns Infection Onset Date Last Indicated Resolved Time Protective Environment 06/02/2024 06/02/2024 documented as of this encounter Care Teams Bed Manager Relationship Specialty Start Date End Date Elsewhere, Pcp PCP - General Internal Medicine 03/08/24 documented as of this encounter
--- OUTSIDE RECORDS SUMMARY | 2025-03-09 16:27 | XMS_ITS | Encounter Summary ---
Author Organization [facility] Address [address] [place] [address] Care Team Providers Care Model Builder Display Name Role Phone Elsewhere, Pcp Primary Care Provider Unavailabl e Encounter Details Date Type Department Care Team (Late st Contact Info) Description 02/01/2025 Orders Only Department of Infusion Therapy in [address] [phone] Katherine King, R.N. Malignant Neoplasm Of Cecum [...] the past 12 months has [facility] [employer], gas, oil, or water [employer] threatened to shut off services in [...] your living situation today? I have a [facility] place to live 2024 Education Answer Date [...] (Latest Contact Info) Description 03/12/2025 11:30 AM ELDERLY SITTER Appointment Department of Gastroenterology in [place], [place] [address] [place] [address] Marquise Gill M.D. [address] [place] [address] Kala Woo APRN, C.N.P., D.N.P., M.S.N. [address] [place] [address] Discharge Disposition: Home or Self Care 03/12/2025 3:30 PM ELDERLY SITTER Appointment Department of Radiation Oncology in [place] [address] [place] [address] Faith Ellis M.D. 200 [place] [address] 03/13/2025 3:45 PM ELDERLY SITTER Appointment Department of Radiation Oncology in [address] [address] Faith Ellis M.D. 200 [place] [address] 03/14/2025 3:30 PM ELDERLY SITTER Appointment Department of Radiation Oncology in [place], [place] [address] [place] [address] Faith Ellis M.D. 200 [place] [address] 03/14/2025 3:45 PM ELDERLY SITTER Appointment Department of Radiation Oncology in [place] [address] [place] [address] Sandro Guerrero [place]. [facility] [address] 03/15/2025 8:30 AM ELDERLY SITTER Lab Department of Laboratory Medicine and Pathology, [facility], in [place], [place] 200 [place] [address] Kadeem Marshall P.A.-C., M.S. [address] [place] [phone] 03/15/2025 9:40 AM ELDERLY SITTER Education Department of Oncology in [place], [place] [address] [place] [phone] Kadeem Marshall P.A.-C., M.S. [address] [place] [phone] 03/15/2025 10:30 AM ELDERLY SITTER Infusion Department of Oncology in [place], [place] [address] [place] [phone] Kadeem Marshall P.A.-C., M.S. [address] [place] [phone] 03/15/2025 2:25 PM ELDERLY SITTER Appointment Department of Cardiovascular Diseases in [place], [place] [address] [place] [phone] Kadeem Marshall P.A.-C., M.S. [address] [place] [phone] Discharge Disposition: Home or Self Care 03/15/2025 3:30 PM ELDERLY SITTER Appointment Department of Radiation Oncology in [address] [phone] Faith Ellis M.D. [address] [place] [phone] 03/16/2025 3:30 PM ELDERLY SITTER Appointment Department of Radiation Oncology in [place], [place] [address] [place] [phone] Faith Ellis M.D. [address] [place] [phone] 04/05/2025 8:30 AM ELDERLY SITTER Lab Department of Oncology in [place], [place] [address] [place] [phone] Kadeem Marshall P.A.-C., M.S. [address] [place] [phone] 04/05/2025 10:40 AM ELDERLY SITTER Office Visit Department of Oncology in [place], [place] [address] [place] [phone] Kadeem Marshall P.A.-C., M.S. [address] [place] [phone] 04/05/2025 1:00 PM ELDERLY SITTER Infusion Department of Oncology in [place], [place] [address] [place] [phone] Kadeem Marshall P.A.-C., M.S. [address] [place] [phone] 04/06/2025 10:00 AM ELDERLY SITTER Comprehensive Visit Department of Palliative Care in [place], [place] [address] [place] [phone] Ana Rosa Hurtado APRN, C.N.P., D.N.P. [address] [place] [phone] 04/30/2025 7:15 AM ELDERLY SITTER Lab Department of Oncology in [place], [place] [address] [place] [phone] Kadeem Marshall P.A.-C., M.S. [address] [place] [phone] 04/30/2025 9:20 AM ELDERLY SITTER Office Visit Department of Oncology in [place], [place] [address] [place] [phone] Kadeem Marshall P.A.-C., M.S. [address] [place] [phone] 04/30/2025 2:30 PM ELDERLY SITTER Infusion Department of Oncology in [place], [place] [address] [place] [phone] Kadeem Marshall P.A.-C., M.S. [address] [place] [phone] 05/21/2025 11:00 AM ELDERLY SITTER Lab Department of Oncology in [address] [address] Kadeem Marshall P.A.-C., M.S. [address] [place] [phone] 05/21/2025 1:20 PM ELDERLY SITTER Office Visit Department of Oncology in [address] [address] Kadeem Marshall P.A.-C., M.S. [address] [place] [phone] 05/21/2025 2:00 PM ELDERLY SITTER Infusion Department of Oncology in [address] [address] Kadeem Marshall P.A.-C., M.S. [address] [place] [phone] documented as of this encounter Visit Diagnoses Diagnosis Malignant Neoplasm Of Cecum (HCC)- Primary documented in this encounter Additional Health Concerns Infection Onset Date Last Indicated Resolved Time Protective Environment 06/02/2024 06/02/2024 documented as of this encounter Care Teams Model Builder Display Relationship Specialty Start Date End Date Elsewhere, Pcp PCP - General Internal Medicine 03/08/24 documented as of this encounter
--- OUTSIDE RECORDS SUMMARY | 2025-03-09 16:28 | XMS_ITS | Clinical Summary ---
Author Organization [facility] Address [address] [place] [id number] Care Team Providers Care Bowling Ball Engraver Name Role Phone Charla Carrington MD [facility] Un[facility] Allergies Active Allergy Reactions [...] (07/07/2022): Colonoscopy 06/2022 cecal cancer, referral to [facility] Abnormal angiogram 10/01/2017 Overview (10/01/2017): Angiogram from [...] Department Care Team Description 03/07/2025 Medical Messaging [facility] [address] [place] [address] Charla Carrington MD Referral needed for [place] [facility] 02/14/2025 2:00 PM CDT Telemedicine [address] [address] Tarun Vera MBBS Follow Up 02/14/2025 Medical Messaging [facility] [address] [place] [address] Charla Carrington MD New Referrals for [place] 02/09/2025 Travel 02/05/2025 2:45 PM CDT Orders Only [facility] [address] [facility] [address] [place] [facility] 02/05/2025 2:20 PM CDT Office Visit [facility] [address] [place] [address] Charla Carrington MD ER Follow up (from shinges) 02/05/2025 Travel 02/02/2025 Travel 01/31/2025 Travel 12/27/2024 4:00 PM CDT Telemedicine [facility] [address] [place] [address] Tarun Vera MBBS 12/25/2024 Travel 12/21/2024 10:15 AM CDT Orders Only [facility] [address] [address] [place] [address] Lab, [place] Lab 12/21/2024 Travel 12/16/2024 Travel [...] AM CDT Legal Sex Female 8:33 AM INVESTMENT BANKING ANALYST Gender Identity Female 07/28/2023 5:36 AM CDT [...] CDT Respiratory Rate 16 07/03/2022 10:10 AM INVESTMENT BANKING ANALYST Oxygen Saturation 98% 02/05/2025 2:19 PM CDT Inhaled Oxygen Concentration - - Weight 68 kg (150 lb) 02/05/2025 2:19 PM CDT Height 158 cm (5' 2.21) 02/05/2025 2:19 PM CDT Body Mass Index 27.25 02/05/2025 2:19 PM CDT Plan of Treatment Upcoming Encounters Date Type Department Care Team (Late st Contact Info) Description 03/12/2025 8:30 AM INVESTMENT BANKING ANALYST [place] [facility] [place] [address] [place] [address] Lab, [place] Health Maintenance Due Date Last [...] ИРИНА BILAT SCREEN Routine 03/02/2023 4:38 PM INVESTMENT BANKING ANALYST Visit for screening mammogram COLONOSCOPY SCREENING Routine 07/03/2022 8:25 AM INVESTMENT BANKING ANALYST History of colon polyps ANTI HCV Routine 03/11/2022 5:05 PM INVESTMENT BANKING ANALYST Need for hepatitis C screening test LIPID PANEL W REFLEX MEASURED LDL Routine 03/11/2022 5:05 PM INVESTMENT BANKING ANALYST Hyperlipidemia, unspecified hyperlipidemia type from Last 3 Months or Most Recently Relevant to Health Maintenance Results * XR MAMMO ИРИНА BILAT SCREEN (03/02/2023 4:38 PM INVESTMENT BANKING ANALYST) Anatomical Region Laterality Modality BREASTS, Breast Left, Breast Right Bilateral Mammography Impressions 03/03/2023 2:00 PM INVESTMENT BANKING ANALYST There is no radiographic evidence for malignancy. Recommend annual mammograms. MAMMOGRAM ASSESSMENT: ACR 1 Negative PATIENTS: You will also receive a letter with your examination results in an easy to read format. If you have questions about your results, please contact your referring provider. Narrative 03/03/2023 2:00 PM INVESTMENT BANKING ANALYST For Patients: As a result of the Century Cures Act, medical imaging exams and procedure reports are released immediately into your electronic medical record. You may view this report before your referring provider. If you have questions, please contact your health care provider. XR MAMMO ИРИНА BILAT SCREEN [[id number]] CLINICAL HISTORY: This is an asymptomatic 62 y.o. patient. INDICATION FOR EXAM: Mammogram Screening. TECHNIQUE: CC & MLO views were obtained. This study was evaluated with the assistance of Computer-Aided Detection. Breast Tomosynthesis was used in interpretation. COMPARISON FILM: Yes 02/25/22 [facility] 08/02/17 [facility] FINDINGS: The breasts are heterogeneously dense, which may obscure small masses. There are no dominant masses, suspicious micro calcifications or areas of architectural distortion. us Charla Carrington MD MAMMO Final Resul t * COLONOSCOPY (07/03/2022 8:39 AM INVESTMENT BANKING ANALYST) 07/03/2022 8:39 AM INVESTMENT BANKING ANALYST Narrative Transcriptions Leo Marte MD - 07/03/2022 [...] adequate candidate for conscious sedation. The endoscope [id number] was passed through the anus andadvanced to [...] 8:39 AM Procedure Code(s): --- Professional --- 52227, Colonoscopy, flexible; with biopsy, single or multiple Diagnosis Code(s): --- Professional --- Z86.010, Personal history of colonicpolyps D49.0, Neoplasm of unspecified behavior of digestive system K64.8, Other hemorrhoids CPT copyright 2020 [employer]. All rights reserved. The codes documented in this report are preliminary and upon junction maker reviewmay be revised to meet current compliance requirements. Scope In: 9:25:46 AM Scope Withdrawal Time 0 hours 9 minutes 43 seconds Scope Out: 9:38:45 AM us Leo Marte MD PROCEDURE ORD Final Res ult * (ABNORMAL) LIPID PANEL W REFLEX MEASURED LDL (03/11/2022 5:05 PM INVESTMENT BANKING ANALYST) CHOLESTEROL,TOTAL 271(H) 100 - 199 mg/dL 03/14/2022 3:15 AM INVESTMENT BANKING ANALYST [facility] TRIGLYCERIDES 149 <150 mg/dL 03/14/2022 3:15 AM INVESTMENT BANKING ANALYST [facility] HDL CHOLESTEROL 60 >40 mg/dL 2 3:15 AM INVESTMENT BANKING ANALYST [facility] NON-HDL CHOLESTEROL 211(H) <145 mg/dl 03/14/2022 3:15 AM INVESTMENT BANKING ANALYST [facility] TRAL LABORATORY CHOL/HDL RATIO 4.52(H) <4.50 03/14/2022 3:15 AM INVESTMENT BANKING ANALYST [facility] TRAL LABORATORY LDL CHOLESTEROL 181(H) <=130 mg/dL 03/14/2022 3:15 AM INVESTMENT BANKING ANALYST [facility] TRAL LABORATORY VLDL CHOLESTEROL 30 <=30 mg/dL 03/14/2022 3:15 AM INVESTMENT BANKING ANALYST [facility] TRA LABORATORY PROVIDER ORDERED STATUS RANDOM 03/14/2022 3:15 AM INVESTMENT BANKING ANALYST [facility] Blood BLOOD SPECIMEN / Unknown Venipuncture / Unknown 03/11/2022 5:05 PM INVESTMENT BANKING ANALYST 03/11/2022 5:05 PM INVESTMENT BANKING ANALYST Charla Carrington MD CHEMISTRY Final Resul t Performing Organization Address City/[facility]/ZIP Co de Phone Number [facility] [address] [place] [address], * ANTI HCV (03/11/2022 5:05 PM INVESTMENT BANKING ANALYST) HEPATITIS C ANTIBODY Non-React ravin Non-React ravin 03/14/2022 3:35 AM INVESTMENT BANKING ANALYST [facility] Comment:Antibodies to HCV no t detected; does not exclude the possibility of exposure to HCV. Blood BLOOD SPECIMEN / Unknown Venipuncture / Unknown 03/11/2022 5:05 PM INVESTMENT BANKING ANALYST 03/11/2022 5:05 PM INVESTMENT BANKING ANALYST Charla Carrington MD SEND OUTS Final Resul t [facility] [address] [place] [address], from Last 3 Months or Most Recently Relevant to Health Maintenance Insurance [employer] [id number] [employer] Advance Directives * Full Code (Latest Code Status on File) Date Activated Date Inactivated Comments 09/28/2017 10:39 AM 09/28/2017 1:55 PM Care Teams Bowling Ball Engraver Relationship Specialty Start Date End Date Charla Carrington MD [address] [place] [address] PCP - General Family Practice 07/03/22 Sunshine Leo, GALLITO [address] [place] [address] [place] [id number] Nurse Navigator - Oncology Registered Nurse 12/01/24
[2025-03-09 16:59] LABS: Hematocrit* 41.6 % (33.0-51.0); Hemoglobin* 13.8 gm/dL (12.0-16.0); Immature Granulocytes Abs Auto 0.02 K/uL (0.00-0.30); Immature Granulocytes Pct Auto 0.2 %; Lymphocytes Absolute Auto 0.60 K/uL (0.90-2.90); Mean Corpuscular HGB Conc 33 gm/dL (32-36); Mean Corpuscular Hemoglobin 31 pg (26-34); Mean Corpuscular Volume 94 fL (80-100); RDW Coefficient of Variation % 13.6 % (11.5-15.5); Red Blood Count* 4.44 m/uL (4.00-5.20); White Blood Count* 8.56 K/uL (4.50-11.00)
[2025-03-09 17:03] LABS: Slide Review Reflex No
[2025-03-09 17:14] LABS: Albumin* 3.4 g/dL (3.3-5.0); Chloride* 92 mmol/L (96-114); Potassium* 4.8 mmol/L (3.6-5.1); Sodium* 129 mmol/L (135-149)
[2025-03-09 17:17] LABS: Alanine Aminotransferase* 13 U/L (4-35); Anion Gap 16 mEq/L (7-15); Aspartate Amino Transferase* 25 U/L (12-35); Blood Urea Nitrogen* 14 mg/dL (7-30); Calcium* 9.0 mg/dL (8.4-10.6); Carbon Dioxide* 21 mmol/L (20-32); Creatinine* 0.7 mg/dL (0.5-1.5); Estimated Glomerular Filt Rate 97 ml/min; Glucose* 108 mg/dL (60-115); Total Protein* 5.7 g/dL (6.0-8.3)
[2025-03-09 17:18] LABS: Alkaline Phosphatase* 64 U/L (40-150); Bilirubin Direct* 0.3 mg/dL (0.0-0.5); Bilirubin Total* 0.5 mg/dL (0.1-1.5)
--- NOTE | 2025-03-09 18:30 | PM.GSCN ---
History of Present Illness Consult details Date Seen: 03/09/25 Consult date: 03/09/25 Narrative: Patient presented to the emergency department with worsening abdominal pain in her upper abdomen radiating to her side, abdominal distension and inability to tolerate p.o. intake due to reflux. 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 She did have drainage of this fluid by GI on 03/06/25 in [place]. During that procedure they managed to remove 3 L. She feels like she has had rapid reaccumulation of the fluid and has been unable to tolerate this at home. She did see her radiation oncologist, who did mapping of the abdomen and is planning on performing radiation to some of the peritoneal Mets. She also follows Oncology through [place]. I was able to speak to both of the physicians to help with coordination of her care given her recent emergency room visits. Review of Systems Status of ROS: Reports: 10 or more systems reviewed and unremarkable except as noted in History and below [facility] Medical History Herpes labialis ?B00.1 - Herpesviral vesicular dermatitis (ICD-10) Colon cancer ?C18.9 - Malignant neoplasm of colon, unspecified (ICD-10) Hypertension ?I10 - Essential (primary) hypertension (ICD-10) Dyslipidemia ?E78.5 - Hyperlipidemia, unspecified (ICD-10) Class 1 obesity ?E66.9 - Obesity, unspecified (ICD-10) Chronic gastroesophageal reflux disease ?K21.9 - Gastro-esophageal reflux disease without esophagitis (ICD-10) Allergic rhinitis ?J30.9 - Allergic rhinitis, unspecified (ICD-10) Recurrent sinusitis ?J32.9 - Chronic sinusitis, unspecified (ICD-10) Polyp of colon (10/14/15) ?K63.5 - Polyp of colon (ICD-10) History of vitamin D deficiency ?Z86.39 - Personal history of other endocrine, nutritional and metabolic disease (ICD-10) History of coronary angiogram (09/28/17) ?Z98.890 - Other specified postprocedural states (ICD-10) History of cardiovascular stress test (09/14/17) ?Z92.89 - Personal history of other medical treatment (ICD-10) Surgical History H/O laparoscopy ?Z98.890 - Other specified postprocedural states (ICD-10) H/O partial resection of colon ?Z90.49 - Acquired absence of other specified parts of digestive tract (ICD-10) History of total hysterectomy with removal of both tubes and ovaries (2010) ?Z90.710 - Acquired absence of both cervix and uterus (ICD-10) ?Z90.722 - Acquired absence of ovaries, bilateral (ICD-10) ?Z90.79 - Acquired absence of other genital organ(s) (ICD-10) History of colonoscopy with polypectomy (10/11/15) ?Z98.890 - Other specified postprocedural states (ICD-10) ?Z86.010 - Personal history of colonic polyps (ICD-10) History of 2 sections (1988) ?Z98.891 - History of uterine scar from previous surgery (ICD-10) Family History Maternal Grandmother Stroke Diabetes Family/Other Prostate cancer Gastric cancer Father Heart disease Social History Narrative: 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 Exercises 3-4 times per week-gym and walks, nonsmoker, no EtOH. What is your current living situation?: I presently have a place to live Problems where you live: no known problems Problems where you live details: N/A In the past 12 months, utilities in danger of being shut off: no In past 12 months, lack of transportation kept you from medical appts, meetings, work, or getting things needed for daily living: no In the past 12 mos, have been you worried that your food would run out before you had money to buy more?: never true In the past 12 mos, the food you bought just didn't last and you didn't have money to buy more?: never true Smoking Status: Never smoker Do you use any of these nicotine containing products: None Second hand tobacco smoke exposure: No How often do you have a drink containing alcohol: never How often do you have six or more drinks on one occasion: Never AUDIT-C Alcohol total score: 0 Non-prescribed substance use: denies use Caffeine: No How often does anyone, including family, friends and others, physically hurt you: never How often does anyone, including family, friends and others, insult or talk down to you: never How often does anyone, including family, friends and others, threaten you with harm: never How often does anyone, including family, friends and others, scream or curse at you: never service: No Meds Home Medications and Allergies Home Medications ?Medication ?Instructions ?Recorded ?Confirmed ?Type ciprofloxacin HCl 500 mg tablet 500 mg PO BID 03/09/25 03/09/25 History Allergies Allergy/AdvReac Type Severity Reaction Status Date / Time doxycycline Allergy Intermediate Rash Verified 03/08/25 23:06 codeine AdvReac Intermediate Nausea Verified 03/08/25 23:06 lisinopril AdvReac Unknown Cough Verified 03/08/25 23:06 morphine AdvReac Unknown Vomiting Verified 03/09/25 15:10 acyclovir AdvReac Verified 03/08/25 23:06 Exam Narrative: Exam Narrative: General: Alert and oriented, no acute distress Respiratory: Equal breath rise bilaterally, maintained on room air CV: Tachycardia, regular rhythm Abdomen: Moderate distention, soft, diffuse tenderness with palpation. Non peritoneal. Midline surgical incision well healed. Patient has a drainage incision site noted left lateral. Const: Vital Signs, click to edit/add: Vital Signs - 24 hr 03/09/25 15:01 03/09/25 15:48 03/09/25 15:49 Temperature 97.4 F L Pulse Rate 114 H Pulse Rate [Pulse Oximeter] 111 H Respiratory Rate 14 Blood Pressure Blood Pressure [Ri ght Upper Arm] 113/75 124/84 Pulse Oximetry 97 93 Oxygen Delivery Me thod Room Air 03/09/25 16:00 03/09/25 16:01 03/09/25 16:15 Temperature Pulse Rate 111 H 109 H 106 H Pulse Rate [Pulse Oximeter] Respiratory Rate Blood Pressure 124/89 Blood Pressure [Ri ght Upper Arm] Pulse Oximetry 95 94 92 Oxygen Delivery Me thod 03/09/25 16:30 03/09/25 16:45 03/09/25 17:00 Temperature Pulse Rate 107 H 116 H 106 H Pulse Rate [Pulse Oximeter] Respiratory Rate Blood Pressure Blood Pressure [Ri ght Upper Arm] Pulse Oximetry 93 95 94 Oxygen Delivery Me thod 03/09/25 17:01 03/09/25 17:02 03/09/25 17:15 Temperature Pulse Rate 110 H 107 H 111 H Pulse Rate [Pulse Oximeter] Respiratory Rate Blood Pressure 127/87 Blood Pressure [Ri ght Upper Arm] Pulse Oximetry 93 93 95 Oxygen Delivery Me thod 03/09/25 17:26 Temperature Pulse Rate Pulse Rate [Pulse Oximeter] Respiratory Rate Blood Pressure Blood Pressure [Ri ght Upper Arm] Pulse Oximetry 93 Oxygen Delivery Me thod Results Labs Labs: Abnormal lab results 03/09/25 Range/Units 16:50 Neut % (Auto) 84.9 H (42.0-72.0) % Lymph % (Auto) 7.0 L (20-44) % Neut # (Auto) 7.30 H (1.7-7.0) K/uL Lymph # (Auto) 0.60 L (0.90-2.90) K/uL Sodium 129 L (135-149) mmol/L Chloride 92 L (96-114) mmol/L Anion Gap 16 H (7-15) mEq/L Total Protein 5.7 L (6.0-8.3) g/dL Diabetes panel 03/09/25 Range/Units 16:50 Sodium 129 L (135-149) mmol/L Potassium 4.8 (3.6-5.1) mmol/L Chloride 92 L (96-114) mmol/L Carbon Dioxide 21 (20-32) mmol/L BUN 14 (7-30) mg/dL Creatinine 0.7 (0.5-1.5) mg/dL Glucose 108 (60-115) mg/dL Calcium 9.0 (8.4-10.6) mg/dL AST 25 (12-35) U/L ALT 13 (4-35) U/L Alkaline Phosphatase 64 (40-150) U/L Total Protein 5.7 L (6.0-8.3) g/dL Albumin 3.4 (3.3-5.0) g/dL Calcium panel 03/09/25 Range/Units 16:50 Calcium 9.0 (8.4-10.6) mg/dL Albumin 3.4 (3.3-5.0) g/dL Pituitary panel 03/09/25 Range/Units 16:50 Sodium 129 L (135-149) mmol/L Potassium 4.8 (3.6-5.1) mmol/L Chloride 92 L (96-114) mmol/L Carbon Dioxide 21 (20-32) mmol/L BUN 14 (7-30) mg/dL Creatinine 0.7 (0.5-1.5) mg/dL Glucose 108 (60-115) mg/dL Calcium 9.0 (8.4-10.6) mg/dL Adrenal panel 03/09/25 Range/Units 16:50 Sodium 129 L (135-149) mmol/L Potassium 4.8 (3.6-5.1) mmol/L Chloride 92 L (96-114) mmol/L Carbon Dioxide 21 (20-32) mmol/L BUN 14 (7-30) mg/dL Creatinine 0.7 (0.5-1.5) mg/dL Glucose 108 (60-115) mg/dL Calcium 9.0 (8.4-10.6) mg/dL Total Bilirubin 0.5 (0.1-1.5) mg/dL AST 25 (12-35) U/L ALT 13 (4-35) U/L Alkaline Phosphatase 64 (40-150) U/L Total Protein 5.7 L (6.0-8.3) g/dL Albumin 3.4 (3.3-5.0) g/dL All other labs normal. Imaging Abdomen CT scan report/results: report reviewed and image reviewed General Surgery Procedures Paracentesis Time out performed: Yes Imaging guidance used: Yes Indication: Ascites Procedure: therapeutic paracentesis Location: LLQ Local anesthetic used: lidocaine 1% Amount of anesthesia used (ml): 6 Bedside ultrasound used: yes, Ascites confirmed and location marked Preparation: 11 blade used to make kathy in skin (Sterile prep and drape) Amount of fluid obtained (ml): 3,000 Fluid: bloody (Serosanguineous) Post procedure exam: awake, alert, normal BP, normal SpO2 and other (Mild tachycardia, low 100s) Patient tolerated procedure: well and no complications Complications: none Progress Note:A&P Assessment and plan (1) Abdominal ascites: Status: Acute Assessment and Plan: Patient presents for evaluation of her malignant ascites. On CT imaging and through ultrasound she does have a moderate amount of fluid in the abdomen. Risks and benefits of the procedure were discussed at length with the patient. All questions and concerns were addressed with patient agreeing to proceed. I was able to remove a total of 3 L with the patient expressing relief of her symptoms. I do think she may benefit from a permanent catheter, given the current rapid reaccumulation. This was discussed with her oncologist to will follow up with the patient next week. No need for fluid to be sent on today's procedure. Plan -Patient tolerated removal of abdominal ascites via ultrasound-guided thoracentesis. -she did receive 500 mL 5% albumin fluid postprocedure -recommend she continue to follow-up with radiation oncology and oncology as scheduled.
== END 2025-03-09 19:22 | disposition home or self-care (01) ==
PROVIDERS: Emergency Provider Family Medicine; PCP Family Medicine
DX: R18.8 Other ascites (principal)
CPT/HCPCS: 36415; 49082; 49083; 80053; 82248; 85025; 94761; 96374; 99283; 99284; J1171

== ENCOUNTER 2025-03-18 22:28 | Outpatient (CLI) | payer BC, SELFPAY | END 2025-03-18 22:29 | disposition home or self-care (01) | LOC: AMB 03-26 14:32 | PROVIDERS: PCP Family Medicine; Visit Provider Family Medicine | DX: R55 Syncope and collapse (principal) | CPT/HCPCS: A0425; A0433 ==